=== PATIENT | female | born 1945 | race Caucasian/White ===

== ENCOUNTER 2021-10-14 09:13 | Inpatient (IN) | payer OTHER, SELFPAY ==
[2021-10-14] VITALS (23 sets, daily range): BP systolic 72–285; BP diastolic 32–121; PULSE 54–93; RESP 11–20; TEMP 33–36.6; O2SAT 10–100; BMI 30.2
--- NOTE | ~2021-10-14 | XR_ITS ---
EXAMINATION: XR CHEST CLINICAL INFORMATION: OGT placement. COMPARISON: Chest 10/14/2021 TECHNIQUE: Frontal view of the chest was obtained. FINDINGS: The lungs are well-expanded with increased fecal interstitial markings in both lungs suggestive of chronic Interstitial process. There is no consolidation or mass. There is no pleural effusion. There is a new enteric tube with distal tip in the fundus and the end hole above the GE junction. Tip of endotracheal tube is 2.9 cm above the akila. Heart size and pulmonary vascularity is normal. No gross bony or the body seen. XR/XR chest 1V IMPRESSION: New enteric tube needs to be advanced by at least 10 cm for the end hole to be within the stomach. No change in endotracheal tube and prominent bilateral interstitial reticular nodular changes in both lungs.
--- NOTE | ~2021-10-14 | CT_ITS ---
EXAMINATION: CT HEAD WITHOUT CONTRAST (STROKE PROTOCOL) CLINICAL INFORMATION: Stroke protocol. COMPARISON: CT brain 01/16/2019 TECHNIQUE: Contiguous axial imaging was performed from the skull base to vertex without intravenous administration of contrast. This CT examination was performed using dose optimization techniques as appropriate, variously including the following: *Automated exposure control *Adjustment of mA and/or kV according to patient size (this includes techniques or standardized protocols for targeted exams where dose is matched to indication/reason for exam; i.e. extremities or head) *Use of iterative reconstruction technique DLP: 766 mGy-cm FINDINGS: There is no intracranial hemorrhage, hematoma, or extra-axial fluid collection. The ventricles are normal in size. There is no hydrocephalus, edema, or mass effect. The there is diffuse periventricular hypodensity in both cerebral hemispheres without mass effect. There is no acute infarct or mass lesion. The calvarium appears intact. There is no pneumocephalus or orbital emphysema. The visualized sinuses and middle ears and mastoid air cells show no significant mucosal thickening. There are no air-fluid levels. CT/CT head for stroke IMPRESSION: No acute intracranial process seen. This critical result was discussed by phone with Dr Elodia Armando at 10 AM on 10/14/2021. It was ascertained that the content and urgency of the report was understood at the time of direct communication.
--- NOTE | ~2021-10-14 | XR_ITS ---
EXAMINATION: XR CHEST CLINICAL INFORMATION: Status post intubation. COMPARISON: Chest 03/12/2019. TECHNIQUE: Frontal view of the chest was obtained. FINDINGS: The lungs are well-expanded with increased bilateral parahilar markings. In addition there are reticular nodular changes in both lower lobes which were present as far as CT 03/31/2018. There are smaller in size compared to previous study. Patchy atelectasis or infiltrate seen in left lung base. There is an endotracheal tube 2.9 cm above the akila. Heart size and pulmonary vascularity is normal. No gross bony abnormality seen. The soft tissues are normal. XR/XR chest 1V IMPRESSION: Prominent bilateral reticular nodular changes and interstitial thickening likely chronic process. Patchy atelectasis, less likely infiltrate left lung base retrocardiac area. New endotracheal tube 2.9 cm above the akila.
--- NOTE | ~2021-10-14 | CT_ITS ---
EXAMINATION: CTA NECK WITH CONTRAST (STROKE) CTA BRAIN WITH CONTRAST (STROKE) CLINICAL INFORMATION: Suspect acute stroke. Assess for major vessel occlusion. Please call report. COMPARISON: CT scan of the head earlier 10/14/2021. TECHNIQUE: CTA of the head and neck was performed in the axial plane from the mediastinum to the skull vertex using 70 mL Omnipaque 350 intravenous contrast. A 7 minute delayed post contrast CT scan of the head was obtained. Additional reformatted multiplanar images including maximum intensity projection MIP images are generated on the CT workstation. The degree of stenosis is based off NASCET criteria.. This CT examination was performed using dose optimization techniques as appropriate, variously including the following: *Automated exposure control *Adjustment of mA and/or kV according to patient size (this includes techniques or standardized protocols for targeted exams where dose is matched to indication/reason for exam; i.e. extremities or head) *Use of iterative reconstruction technique DLP: 1636 mGy-cm FINDINGS: CT Head: There is no evidence of acute intracranial hemorrhage or territorial infarction. No abnormal mass-effect or midline shift is seen. Gonsalez to white matter differentiation is well preserved. No extra-axial fluid collections are identified. There is no abnormal enhancement. There is mild commensurate prominence of the ventricles and sulci consistent with diffuse volume loss. There are areas of low-attenuation in the periventricular and subcortical white matter, and in the thong consistent with chronic microvascular ischemic changes. The osseous structures and soft tissues are normal. There is moderate fluid within the nasal cavities bilaterally. There is mild mucoperiosteal thickening in the right maxillary sinus. CTA Neck: There is a classic configuration of the arch of the aorta. The great vessels of the neck are widely patent. There are atheromatous calcifications at the origins of the bilateral subclavian arteries. The common carotid arteries have normal caliber. There are mild atheromatous calcifications at the carotid bifurcations without significant stenosis. The internal carotid arteries in the neck bilaterally have uniform and normal caliber. The origins of both vertebral arteries are well seen and appear normal. Both vertebral arteries are widely patent and demonstrate good opacification throughout their cervical course. The vertebral arteries are codominant. Nonvascular: There are atelectatic changes in the lungs bilaterally. There is pleuroparenchymal scarring at the lung apices. The esophagus is distended with a moderate amount of fluid. There is an endotracheal tube in position with the tip approximately 2 cm above the level of the akila. There is a 0.9 cm low density nodule with peripheral hyperattenuation toward the upper pole of the left lobe of the thyroid gland, which is not clinically significant. There is no cervical lymphadenopathy. There are no acute osseous findings. CTA Head: There are atheromatous calcifications of the cavernous internal carotid arteries bilaterally, with approximately 50% stenosis. The middle and anterior cerebral arteries bilaterally demonstrate normal caliber with no evidence of focal stenosis, aneurysm or vascular malformation. There is normal arborization of the middle cerebral artery branches. The anterior communicating artery is normal. In the posterior circulation, the vertebral arteries are codominant and have uniform caliber. The basilar artery appears normal. The right posterior cerebral artery has a origin off the anterior circulation. The posterior cerebral arteries have normal caliber. The venous sinuses opacify normally. CT/CT angio head neck stroke IMPRESSION: 1. There are no acute bleeds or territorial infarcts. There are no masses or areas of abnormal enhancement. 2. There is diffuse volume loss and there are chronic microvascular ischemic changes. 3. There are calcifications at the carotid bifurcations and intracranially, but without significant focal stenoses, aneurysms or vascular malformations are demonstrated. 4. The esophagus is distended with fluid. 5. This critical result was telephoned to Dr Haley on 10/14/2021 at 10:45 AM and it was ascertained that the content and urgency of the report was understood at the time of direct communication.
[2021-10-14] MEDS: LORazepam 2 MG/ML VIAL 1 MG IVPUSH (09:18)
[2021-10-14] MEDS: Succinylcholine Chloride 200 MG/10 ML VIAL 100 MG IVPUSH (09:21)
[2021-10-14] MEDS: Etomidate 20 MG/10 ML VIAL IVPUSH (09:21)
--- NOTE | 2021-10-14 09:26 | ECG_ITS ---
Test Reason : UNRESPOSIVE Blood Pressure : / mmHG Vent. Rate : 074 BPM Atrial Rate : 074 BPM P-R Int : 164 ms QRS Dur : 096 ms QT Int : 470 ms P-R-T Axes : 070 079 091 degrees QTc Int : 521 ms Normal sinus rhythm Possible Left atrial enlargement Nonspecific ST abnormality Prolonged QT Abnormal ECG When compared with ECG of 12-MAR-2019 22:41, T wave inversion less evident in Anterolateral leads QT has lengthened Referred By: Tr Clifton Electronically Signed By:CHELLY VEGAS MD
[2021-10-14 09:35] LABS: Glucose, Whole Blood 194 mg/dL (60-115)
[2021-10-14] MEDS: propofoL 1,000 MG/100 ML VIAL 9 MG IVCONT (09:35)
--- NOTE | 2021-10-14 09:55 | ED_ITS ---
HPI - Altered Mental Status General Chief Complaint: General Medical Stated Complaint: unresponsive Time Seen by Provider: 10/14/21 09:26 Source: family and EMS Mode of arrival: EMS History of Present Illness HPI narrative: Altered mental status ,pt found by EMS face down in the floor MD complaint: altered mental status, confusion and decreased responsiveness Onset (ago): hour(s) (2) Timing confirmed by: spouse Severity: moderate Context: other (dementia) Related Data Allergies Allergy/AdvReac Type Severity Reaction Status Date / Time Sulfa Allergy Severe RASH/HIVES, Unverified 06/02/20 14:38 (Sulfonamide Antibiotics) hives [SULFA (SULFONAMIDE ANTIBIOTICS)] insulin aspart Allergy Unknown HIVES Unverified 06/02/20 14:38 [From NOVOLOG U-100 INSULIN ASPART] levofloxacin AdvReac Intermediate BLOOD Unverified 06/02/20 14:38 [From LEVAQUIN] SUGAR DROPS milk [MILK] AdvReac Mild NAUSEA Unverified 06/02/20 14:38 sulfa drugs Allergy Unknown Uncoded 03/23/19 00:00 Review of Systems Verdana 4l Review of Systems: Yes all other systems are reviewed and Verdana 4d are negative Verdana 4l Constitutional: Verdana 4d Constitutional: Verdana 4d Verdana 4d Denies chills and Denies headache(s) Verdana 4l Eyes: Verdana 4d Verdana 4d Eyes: Verdana 4d Denies blurry vision Verdana 4l ENT: Verdana 4d Denies headache(s) Verdana 4l Cardiovascular: Verdana 4d Cardiovascular: Verdana 4d Verdana 4d Reports no additional cardiovascular complaints Verdana 4l Neurologic: Verdana 4d Reports behavioral changes, Reports confusion and Denies headache(s) Verdana 4l Psychiatric: Verdana 4d Verdana 4d Psychiatric: Verdana 4d Reports behavioral changes and Reports confusion [facility] Past Medical History PMF Narrative: Diabetes,dementia,hyponatremia Social History Social History Advance Directives: Yes Advance Directives Information Provided: No Advance Directives on File: No Physical Exam Verdana 4l Vital Signs: Verdana 4d Verdana 4d Vital Signs: Verdana 4d Verdana 4Bd Last Vital Signs Verdana 4d Tests Superintendent New 4d Tests Superintendent New 4d Temp 95.5 F L 10/14/21 10:41 Tests Superintendent New 4d Pulse 66 10/14/21 10:41 Tests Superintendent New 4d Resp 18 10/14/21 10:41 BP 134/60 10/14/21 10:41 Pulse Ox 100 10/14/21 10:41 BMI result Body Mass Index 30.2 Const: Other: Patient is altered uncooperative, does not follow commands General: confusion, lethargic and patient obtunded Orientation/consciousness: confusion, patient obtunded and lethargic HENMT: Head: Yes normal to inspection Face and sinus: Yes normal facial exam Mouth: Normal oral and palatal mucosa present Eyes: General: appearance normal, both eyes and all related structures Conjunctivae: conjunctivae normal Sclerae: sclerae normal Neck: Neck: Yes normal visual inspection Chest: Chest palpation & inspection: normal inspection of the chest Resp: Effort & Inspection: normal respiratory effort Auscultation: clear to auscultation bilaterally Cardio: Jugular venous distension: no JVD Rate: regular rate Rhythm: regular rhythm GI: Inspection: Yes normal to inspection Palpation (GI): Soft to palpation, nontender and no guarding Auscultation: normal bowel sounds Skin: General skin exam: no rashes or lesions noted, elasticity normal and turgor no rmal Lesions: no lesions Rashes: no rashes Neuro: Other: Patient is lethargic with known did the does not follow command General: confusion and patient obtunded Course Reevaluation(s) Reevaluation #1: The patient was intubated on arrival with RSI , I spoke a letter with the he reports to me that the was shaking so I assume that maybe she had a possible seizure, she has no history of seizure prior to that, the tells me also that she had low sodium so is in the differential diagnosis disease there is hyponatremia as well Reevaluation #2: Na noted 113,discussed with ICU team they request Na 100 cc/h Also spoke with renal Dr Puckett MDM - Altered Mental Status Lab Data Result diagrams: 10/14/21 10:03 10/14/21 10:03 Labs: Lab Results 10/14/21 10/14/21 10/14/21 Range/Units 09:17 10:03 10:03 WBC 5.3 (4.8-10.8) X10*3/uL RBC 3.50 L (4.20-5.50) X10*6/uL Hgb 10.4 L (12.0-16.0) g/dl Hct 29.2 L (37.0-47.0) % MCV 83.4 (80.0-98.0) fL MCH 29.7 (27.0-33.0) pg MCHC 35.6 H (31.0-35.0) g/dl RDW 11.8 (11.0-16.0) % Plt Count 224 (160-400) X10*3/uL MPV 8.8 L (9.4-12.3) fL Immature Gran % (Auto) 0.6 H (0.0-0.4) % Neut % (Auto) 79.4 H (45-73) % Lymph % (Auto) 9.5 L (20-40) % [place] % (Auto) 9.9 (2-11) % Eos % (Auto) 0.4 (0-4) % Baso % (Auto) 0.2 (0-2) % Lymph # (Auto) 0.5 L (1.2-4.9) X10*3/uL [place] # (Auto) 0.5 (0.1-1.2) X10*3/uL Eos # (Auto) 0.0 (0.0-0.4) X10*3/uL Baso # (Auto) 0.0 (0.0-0.2) X10*3/uL Abs Immat Gran (auto) 0.03 (0.00-0.03) X10*3/uL Absolute Neuts (auto) 4.2 (2.0-8.3) x10*3/uL Absolute Nucleated RBC 0.000 (0.0-0.012) X10*3/uL Nucleated RBC % (auto) 0.0 (0.0-0.2) /100WBC PT 12.7 (9.9-13.0) SEC INR 1.1 (0.9-1.1) APTT 32.7 (24.1-38.0) SEC Sodium (135-145) mmol/L Potassium (3.3-5.1) mmol/L Chloride (96-108) mmol/L Carbon Dioxide (22-29) mmol/L Anion Gap (12-20) BUN (9-16) mg/dL Creatinine (0.5-1.4) mg/dL Estim Creat Clear Calc Estimated GFR POC Glucose 194 H (60-115) mg/dL Random Glucose (60-115) mg/dL Calcium (8.4-10.2) mg/dL Total Bilirubin (0.0-1.0) mg/dL AST (5-31) U/L ALT (0-31) U/L Alkaline Phosphatase (39-117) U/L Troponin I High Sens (<3.5-17.0) ng/L Total Protein (6.5-8.0) g/dL Albumin (3.5-5.0) g/dL Urine Color Urine Appearance Urine pH (5.0-8.0) Ur Specific [place] (1.005-1.025) Urine Protein (NEG-TRACE) MG/DL Urine Glucose (UA) (NEG) MG/DL Urine Ketones (NEG) MG/DL Urine Blood (NEG) Urine Nitrite (NEG) Ur Leukocyte Esterase (NEG) Urine RBC (0) /HPF Urine WBC (0-4) /HPF Ur Squamous Epith Cells /LPF Urine Bacteria /LPF 10/14/21 10/14/21 10/14/21 Range/Units 10:03 10:03 10:35 WBC (4.8-10.8) X10*3/uL RBC (4.20-5.50) X10*6/uL Hgb (12.0-16.0) g/dl Hct (37.0-47.0) % MCV (80.0-98.0) fL MCH (27.0-33.0) pg MCHC (31.0-35.0) g/dl RDW (11.0-16.0) % Plt Count (160-400) X10*3/uL MPV (9.4-12.3) fL Immature Gran % (Auto) (0.0-0.4) % Neut % (Auto) (45-73) % Lymph % (Auto) (20-40) % [place] % (Auto) (2-11) % Eos % (Auto) (0-4) % Baso % (Auto) (0-2) % Lymph # (Auto) (1.2-4.9) X10*3/uL [place] # (Auto) (0.1-1.2) X10*3/uL Eos # (Auto) (0.0-0.4) X10*3/uL Baso # (Auto) (0.0-0.2) X10*3/uL Abs Immat Gran (auto) (0.00-0.03) X10*3/uL Absolute Neuts (auto) (2.0-8.3) x10*3/uL Absolute Nucleated RBC (0.0-0.012) X10*3/uL Nucleated RBC % (auto) (0.0-0.2) /100WBC PT (9.9-13.0) SEC INR (0.9-1.1) APTT (24.1-38.0) SEC Sodium 113 L* (135-145) mmol/L Potassium 3.9 (3.3-5.1) mmol/L Chloride 83 L (96-108) mmol/L Carbon Dioxide 21 L (22-29) mmol/L Anion Gap 13 (12-20) BUN 11 (9-16) mg/dL Creatinine 0.64 (0.5-1.4) mg/dL Estim Creat Clear Calc 69.8 Estimated GFR > 60 POC Glucose (60-115) mg/dL Random Glucose 198 H (60-115) mg/dL Calcium 7.7 L (8.4-10.2) mg/dL Total Bilirubin 1.0 (0.0-1.0) mg/dL AST 28 (5-31) U/L ALT 15 (0-31) U/L Alkaline Phosphatase 89 (39-117) U/L Troponin I High Sens 9.7 (<3.5-17.0) ng/L Total Protein 5.2 L (6.5-8.0) g/dL Albumin 3.1 L (3.5-5.0) g/dL Urine Color YELLOW Urine Appearance CLEAR Urine pH 7.5 (5.0-8.0) Ur Specific [place] 1.020 (1.005-1.025) Urine Protein 2+ H (NEG-TRACE) MG/DL Urine Glucose (UA) >=1000 H (NEG) MG/DL Urine Ketones 5 (NEG) MG/DL Urine Blood 2+ H (NEG) Urine Nitrite NEG (NEG) Ur Leukocyte Esterase NEG (NEG) Urine RBC 1-4 (0) /HPF Urine WBC 0-2 (0-4) /HPF Ur Squamous Epith Cells TRACE /LPF Urine Bacteria NONE /LPF ECG Data ECG #1: ECG interpretation date: 10/14/21 ECG interpretation time: 10:22 Prior ECG tracings: available for review Pacemaker model: nsr [address] depression v4-6 Procedures Intubation Time out performed: Yes sedative: Etomidate paralytic: Succinylcholine Laryngoscope: fiber optic video scope ET Tube Size: 7.5 ET Tube Uncuffed: Yes Tube Secured Depth (cm): 23 Tube Placement Confirmation: visualized tube passing through cords and equal breath sounds bilaterally Patient Tolerated Procedure: well Intubation Complications: none Critical Care Time Critical Care Time Critical Care Time: Yes Total Critical Care Time: 45 Attestation: time spent talking to ENS/ staff,taking care of pt ,reviewing study Discharge Plan Discharge Clinical Impression: Altered mental status, unspecified, Acute hyponatremia Patient Disposition: Admitted As Inpatient
[2021-10-14 10:06] LABS: MANUAL DIFF FLAG NO
[2021-10-14 10:09] LABS: Basophils Percent Auto 0.2 % (0-2); Eosinophils Percent Auto 0.4 % (0-4); Hematocrit 29.2 % (37.0-47.0); Hemoglobin 10.4 g/dl (12.0-16.0); Imm Gran Abs Auto 0.03 X10*3/uL (0.00-0.03); Imm Gran Pct Auto 0.6 % (0.0-0.4); Lymphocytes Absolute Auto 0.5 X10*3/uL (1.2-4.9); Lymphocytes Percent Auto 9.5 % (20-40); Mean Corpuscular HGB Conc 35.6 g/dl (31.0-35.0); Mean Corpuscular Hemoglobin 29.7 pg (27.0-33.0); Mean Corpuscular Volume 83.4 fL (80.0-98.0); Mean Platelet Volume 8.8 fL (9.4-12.3); Monocytes Absolute Auto 0.5 X10*3/uL (0.1-1.2); Monocytes Percent Auto 9.9 % (2-11); Neutrophils Absolute Auto 4.2 x10*3/uL (2.0-8.3); Neutrophils Percent Auto 79.4 % (45-73); Platelet Count 224 X10*3/uL (160-400); Red Cell Distribution Width 11.8 % (11.0-16.0); White Blood Count 5.3 X10*3/uL (4.8-10.8)
[2021-10-14 10:15] LABS: INTERNATIONAL NORM RATIO 1.1 (0.9-1.1); Prothrombin Time 12.7 SEC (9.9-13.0)
[2021-10-14 10:18] LABS: Partial Thromboplastin Time 32.7 SEC (24.1-38.0)
[2021-10-14 10:30] LABS: Troponin-I High Sensitivity 9.7 ng/L (<3.5-17.0)
[2021-10-14 10:40] LABS: Appearance Urine CLEAR; Color Urine YELLOW; Glucose Urine UA >=1000 MG/DL (NEG); Leukocyte Esterase Urine NEG (NEG); Nitrite Urine NEG (NEG); PH 7.5 (5.0-8.0); UACC Culture Trigger NO; Urine Blood 2+ (NEG); Urine Ketones 5 MG/DL (NEG); Urine Protein 2+ MG/DL (NEG-TRACE)
[2021-10-14 10:58] LABS: Squamous Epithelial Cell Urine TRACE /LPF; WBC Urine 0-2 /HPF (0-4)
[2021-10-14 10:58] LABS: Alanine Aminotransferase 15 U/L (0-31); Albumin Level 3.1 g/dL (3.5-5.0); Alkaline Phosphatase 89 U/L (39-117); Anion Gap 13 (12-20); Aspartate Amino Transferase 28 U/L (5-31); Blood Urea Nitrogen 11 mg/dL (9-16); Calcium 7.7 mg/dL (8.4-10.2); Carbon Dioxide 21 mmol/L (22-29); Chloride 83 mmol/L (96-108); Creatinine Clr Calc Pharmacy 69.8; Estimated Glomerular Filt Rate > 60; Glucose Random 198 mg/dL (60-115); Potassium 3.9 mmol/L (3.3-5.1); Sodium 113 mmol/L (135-145); Total Protein 5.2 g/dL (6.5-8.0)
[2021-10-14] MEDS: 0.9 % Sodium Chloride 1,000 ML 100 ML IVCONT (11:23)
[2021-10-14 11:24] LABS: Osmolality, Serum 254 mosm/kg (281-305)
[2021-10-14 11:33] LABS: COVID-19 Test Negative (Negative)
[2021-10-14 11:45] LABS: Uric Acid 2.3 mg/dL (2.4-5.7)
[2021-10-14] MEDS: propofoL 1,000 MG/100 ML VIAL 15.75 MG IVCONT (12:52)
[2021-10-14 13:06] LABS: Glucose, Whole Blood 196 mg/dL (60-115)
--- NOTE | 2021-10-14 13:28 | P.CONNP_ITS ---
History of Present Illness Chief Complaint Chief complaint: HYPERNATREMIA SEIZURES Review of Systems Review of Systems Yes all other systems are reviewed and are negative Constitutional: Denies chills and Denies headache(s) Eyes: Denies blurry vision Denies headache(s) Cardiovascular: Reports no additional cardiovascular complaints Reports behavioral changes, Reports confusion and Denies headache(s) Psychiatric: Reports behavioral changes and Reports confusion PMFSH Social History Social History Advance Directives: Yes Advance Directives Information Provided: No Advance Directives on File: No Meds Allergies Allergy/AdvReac Type Severity Reaction Status Date / Time Sulfa Allergy Severe RASH/HIVES, Unverified 06/02/20 14:38 (Sulfonamide Antibiotics) hives [SULFA (SULFONAMIDE ANTIBIOTICS)] insulin aspart Allergy Unknown HIVES Unverified 06/02/20 14:38 [From NOVOLOG U-100 INSULIN ASPART] levofloxacin AdvReac Intermediate BLOOD Unverified 06/02/20 14:38 [From LEVAQUIN] SUGAR DROPS milk [MILK] AdvReac Mild NAUSEA Unverified 06/02/20 14:38 sulfa drugs Allergy Unknown Uncoded 03/23/19 00:00 Active Medications: Current Medications Propofol (Diprivan) 1,000 mg in 100 mls @ 0 mls/hr IVCONT .Q0M [facility]; Protocol Last Admin: 10/14/21 12:52 Dose: 35 mcg/kg/min, 15.75 mls/hr Documented by: Sodium Chloride (Ns) 1,000 mls @ 100 mls/hr IVCONT .Q10H [facility] Last Admin: 10/14/21 11:23 Dose: 100 mls/hr Documented by: Pharmacy Consult (Consult Rx Perform Med Rec) 1 each MISCELLANE ONCE PRN PRN Reason: Consult order Home Medications Medication Instructions Recorded Confirmed Last Taken Type aspirin 81 mg 81 mg PO DAILY 10/14/21 10/14/21 Unknown History chewable tablet donepezil 10 mg 10 mg PO DAILY 10/14/21 10/14/21 Unknown History tablet omeprazole 20 mg 20 mg PO 10/14/21 10/14/21 Unknown History capsule,delayed DAILY@0630 release simvastatin 20 mg 20 mg PO BEDTIME 10/14/21 10/14/21 Unknown History tablet Physical Exam Vital Signs: Last Vital Signs Temp 95.3 F L 10/14/21 11:24 Pulse 84 10/14/21 13:00 Resp 17 10/14/21 13:00 BP 160/82 H 10/14/21 13:00 Pulse Ox 100 10/14/21 13:00 BMI result Verdana 4 Body Mass Index Verdana 4 30.2 Verdana 4 Verdana 4 Const Other: Patient is altered uncooperative, does not follow commands General: confusion, lethargic and patient obtunded Orientation/consciousness: confusion, patient obtunded and lethargic HENCO Head: Yes normal to inspection Face and sinus: Yes normal facial exam Mouth: Normal oral and palatal mucosa present Eyes General: appearance normal, both eyes and all related structures Conjunctivae: conjunctivae normal Sclerae: sclerae normal Neck Neck: Yes normal visual inspection Chest Chest palpation & inspection: normal inspection of the chest Resp Effort & Inspection: normal respiratory effort Auscultation: clear to auscultation bilaterally Cardio Jugular venous distension: no JVD Rate: regular rate Rhythm: regular rhythm GI Inspection: Yes normal to inspection Palpation (GI): Soft to palpation, nontender and no guarding Auscultation: normal bowel sounds Skin General skin exam: no rashes or lesions noted, elasticity normal and turgor normal Lesions: no lesions Rashes: no rashes Neuro Other: Patient is lethargic with known did the does not follow command General: confusion and patient obtunded Results Lab Results Result Diagrams: 10/14/21 10:03 10/14/21 10:03 Lab results: Chemistry 10/14/21 10:03 Sodium 113 L* Potassium 3.9 Carbon Dioxide 21 L BUN 11 Creatinine 0.64 Calcium 7.7 L Hematology 10/14/21 10:03 WBC 5.3 Hgb 10.4 L Plt Count 224 Urinalysis 10/14/21 10:35 Urine Color YELLOW Urine Appearance CLEAR Urine pH 7.5 Ur Specific [place] 1.020 Urine Protein 2+ H Urine Glucose (UA) >=1000 H Urine Ketones 5 Urine Blood 2+ H Urine Nitrite NEG Ur Leukocyte Esterase NEG Urine RBC 1-4 Urine WBC 0-2 Ur Squamous Epith Cells TRACE Assessment and Plan (1) Acute hyponatremia: Status: Acute
--- NOTE | 2021-10-14 13:33 | PM.CNNEP ---
History of Present Illness Reason for Consult Consult date: 10/14/21 Chief Complaint Chief complaint: HYPERNATREMIA SEIZURES Review of Systems Review of Systems Yes all other systems are reviewed and are negative Constitutional: Denies chills and Denies headache(s) Eyes: Denies blurry vision Denies headache(s) Cardiovascular: Reports no additional cardiovascular complaints Reports behavioral changes, Reports confusion and Denies headache(s) Psychiatric: Reports behavioral changes and Reports confusion PMFSH Social History Social History Advance Directives: Yes Advance Directives Information Provided: No Advance Directives on File: No Meds Allergies Allergy/AdvReac Type Severity Reaction Status Date / Time Sulfa (Sulfonamide Allergy Severe RASH/HIVES, Unverified 06/02/20 14:38 Antibiotics) hives [SULFA (SULFONAMIDE ANTIBIOTICS)] insulin aspart Allergy Unknown HIVES Unverified 06/02/20 14:38 [From NOVOLOG U-100 INSULIN ASPART] levofloxacin [From LEVAQUIN] AdvReac Intermediate BLOOD Unverified 06/02/20 14:38 SUGAR DROPS milk [MILK] AdvReac Mild NAUSEA Unverified 06/02/20 14:38 sulfa drugs Allergy Unknown Uncoded 03/23/19 00:00 Active Medications: Current Medications Propofol (Diprivan) 1,000 mg in 100 mls @ 0 mls/hr IVCONT .Q0M [facility]; Protocol Last Admin: 10/14/21 12:52 Dose: 35 mcg/kg/min, 15.75 mls/hr Documented by: Sodium Chloride (Ns) 1,000 mls @ 100 mls/hr IVCONT .Q10H [facility] Last Admin: 10/14/21 11:23 Dose: 100 mls/hr Documented by: Pharmacy Consult (Consult Rx Perform Med Rec) 1 each MISCELLANE ONCE PRN PRN Reason: Consult order Home Medications Medication Instructions Recorded Confirmed Last Taken Type donepezil 10 mg tablet 10 mg PO DAILY 10/14/21 10/14/21 Unknown History omeprazole 20 mg capsule,delayed 20 mg PO DAILY@0630 10/14/21 10/14/21 Unknown History release Physical Exam Vital Signs: Last Vital Signs Temp 95.3 F L 10/14/21 11:24 Pulse 84 10/14/21 13:00 Resp 17 10/14/21 13:00 BP 160/82 H 10/14/21 13:00 Pulse Ox 100 10/14/21 13:00 BMI result Body Mass Index 30.2 Const Other: Patient is altered uncooperative, does not follow commands General: confusion, lethargic and patient obtunded Orientation/consciousness: confusion, patient obtunded and lethargic HENMT Head: Yes normal to inspection Face and sinus: Yes normal facial exam Mouth: Normal oral and palatal mucosa present Eyes General: appearance normal, both eyes and all related structures Conjunctivae: conjunctivae normal Sclerae: sclerae normal Neck Neck: Yes normal visual inspection Chest Chest palpation & inspection: normal inspection of the chest Resp Effort & Inspection: normal respiratory effort Auscultation: clear to auscultation bilaterally Cardio Jugular venous distension: no JVD Rate: regular rate Rhythm: regular rhythm GI Inspection: Yes normal to inspection Palpation (GI): Soft to palpation, nontender and no guarding Auscultation: normal bowel sounds Skin General skin exam: no rashes or lesions noted, elasticity normal and turgor normal Lesions: no lesions Rashes: no rashes Neuro Other: Patient is lethargic with known did the does not follow command General: confusion and patient obtunded Results Lab Results Result Diagrams: 10/14/21 10:03 10/14/21 10:03 Lab results: Chemistry 10/14/21 10:03 Sodium 113 L* Potassium 3.9 Carbon Dioxide 21 L BUN 11 Creatinine 0.64 Calcium 7.7 L Hematology 10/14/21 10:03 WBC 5.3 Hgb 10.4 L Plt Count 224 Urinalysis 10/14/21 10:35 Urine Color YELLOW Urine Appearance CLEAR Urine pH 7.5 Ur Specific [place] 1.020 Urine Protein 2+ H Urine Glucose (UA) >=1000 H Urine Ketones 5 Urine Blood 2+ H Urine Nitrite NEG Ur Leukocyte Esterase NEG Urine RBC 1-4 Urine WBC 0-2 Ur Squamous Epith Cells TRACE Assessment and Plan (1) Acute hyponatremia: Status: Acute Plan the low uric acid and concentrated 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
--- NOTE | 2021-10-14 13:41 | P.HPCC_ITS ---
History of Present Illness Date of Service: 10/14/21 Attending physician on admission: Paul Ashraf Chief Complaint: Hyponatremia Mrs. Chilel was admitted to the ICU this afternoon after being BIBA to the ED unresponsive and being intubated for airway protection. The patient is a 76 yo F with PMH of dementia x about 3 years, DM, orthostatic hypotension (thought due to autonomic dysfxn related to her DM; she used to take midodrine, doesn?t anymore), GERD.? She?s been admitted to [facility] multiple times over the last few years with syncopal episodes. She participates in [employer].? She lives w her at home.? She has a co mmode at the bedside at night.? Sounds like she needs significant help from her . Meds at home include: Vit B12 Donepezil 10mg Simvastatin 20 mg qhs Vit D ASA 81 daily probiotic omeprazole 20 mg Insulin Humalog w meals Lantus 13 u qhs at 9pm nightly.? (Her wants to make sure she gets it only at 9pm nightly.) According to lab data here at [facility] dating back to 1996, the patient has never previously had hyponatremia ECHO 01/2019 notable for low normal LV EF, normal right heart, severe mitral annular calcification with trace MR. HISTORY OF PRESENT ILLNESS:? Over the last week, he mental status has been a little more off than usual, and she?s lost control of her bladder/bowel twice.? The went to the doctor at [employer] yesterday and were told her sodium was low .? (Not sure what that means.)? The called EMS this morning because his was down on the floor and unresponsive.? EMS found her face down on the floor and unresponsive.? The reported that his was shaking.? The patient was BIBA to the ED after 9am this morning. In the ED, the patient was unresponsive and was intubated on arrival.? Because of the 's story, Dr. Clifton thought she might have had a sz at home.? Physical exam in the ED generally unremarkable.? Labs notable for sodium 113, BUN/creatinine 11/0.6, glucose 198, albumin 3.1.? The patient was started on normal saline at 100 cc/hour, and admitted to the ICU. On my exam, she?s pale, looks older than stated age.? Unresponsive on propofol drip 35ug.? HR 87, BP 160/82.? On AC 12/360cc/21%/+5, RR is 20, Ve 7L, PIP 15cm, ETCO2 38mm, Sat 97%.? Afebrile and normal thermic.? No jugular venous distention with the head of the bed at 20 degrees.? Chest clear to auscultation, with normal expiratory phase.? Heart rate and rhythm are regular, normal-sounding S1 and S2, with no murmur or gallops.? The abdomen is benign.? She has about <1+ peripheral in central edema. LABORATORY DATA:? Below.? Notably, the serum sodium as described above.? After 2 hours on the normal saline infusion, the serum sodium is up to 117. IMPRESSION: 1. Underlying history of dementia. 2. DM.? Start her on sliding scale. 3. History of orthostatic hypotension. 4. History of GERD.? We?ll make sure she gets her daily omeprazole. 5. Subacute hyponatremia.? Usual management.? Cut the NS down to 50cc/hr and follow closely. 6. Acute respiratory failure.? Required intubation and ventilation for airway control.? Hopefully she will be extubated bbl tomorrow. 7. Hypotensive later in the ICU, related to sedation (propofol and Precedex) and bradycardia (2? Precedex).? BP normalized when those were turned off.? No suspicion of sepsis. 8. Suspect she?s euvolemic, based on her renal indices. Spoke to the patient's at length about her past medical history, what happened yesterday and this morning, about her medications, her current condition, treatment, and prognosis. Critical care time (including extended review of past medical record):? 80+ min [facility] Social History Social History Household Members: Spouse Housing: House Do you presently have visiting nurse or other home services: No (unable to asess) Unable to assess alcohol history related to: Unable to respond Patient Tobacco Use Status: Tobacco use Unknown Use of substances other than those prescribed or required for medical reasons: Unable to respond Advance Directives: Yes Advance Directives Information Provided: No Advance Directives on File: No Advance Directives Date on File: 10/14/21 Recently lost weight without trying: Unsure Nutrition Risks: No Nutritional Risk Patient : No : No Poor oral hygiene: Yes Meds Allergies Allergy/AdvReac Type Severity Reaction Status Date / Time Sulfa (Sulfonamide Allergy Severe RASH/HIVES, Verified 10/14/21 16:39 Antibiotics) hives [SULFA (SULFONAMIDE ANTIBIOTICS)] insulin aspart Allergy Unknown HIVES Verified 10/14/21 16:39 [From NOVOLOG U-100 INSULIN ASPART] levofloxacin [From AdvReac Intermediate BLOOD Verified 10/14/21 16:39 LEVAQUIN] SUGAR DROPS milk [MILK] AdvReac Mild NAUSEA Verified 10/14/21 16:39 Active Medications: Current Medications Propofol (Diprivan) 1,000 mg in 100 mls @ 0 mls/hr IVCONT .Q0M CHRISTOPH; Protocol Last Admin: 10/14/21 12:52 Dose: 35 mcg/kg/min, 15.75 mls/hr Documented by: Sodium Chloride (Ns) 1,000 mls @ 100 mls/hr IVCONT .Q10H CHRISTOPH Last Admin: 10/14/21 11:23 Dose: 100 mls/hr Documented by: Pharmacy Consult (Consult Rx Perform Med Rec) 1 each MISCELLANE ONCE PRN PRN Reason: Consult order Home Medications Medication Instructions Recorded Confirmed Last Taken Type Lactobacillus 1 cap PO BID 10/14/21 10/14/21 Unknown History rhamnosus GG 10 billion cell capsule (Culturelle) aspirin 81 mg 81 mg PO DAILY 10/14/21 10/14/21 Unknown History chewable tablet cholecalciferol 125 mcg PO DAILY 10/14/21 10/14/21 Unknown History (vitamin D3) 125 mcg (5,000 unit) tablet (Vitamin D3) cyanocobalamin 500 mcg PO DAILY 10/14/21 10/14/21 Unknown History (vitamin B-12) 500 mcg tablet donepezil 10 mg 10 mg PO DAILY 10/14/21 10/14/21 Unknown History tablet insulin glargine 13 unit SUBCUT 10/14/21 10/14/21 Unknown History 100 unit/mL (3 BEDTIME mL) subcutaneous pen (Lantus Solostar U-100 Insulin) insulin lispro 3 unit SUBCUT 10/14/21 10/14/21 Unknown History 100 unit/mL QPM subcutaneous cartridge (Humalog U-100 Insulin) insulin lispro 4 unit SUBCUT 10/14/21 10/14/21 Unknown History 100 unit/mL DAILY subcutaneous cartridge (Humalog U-100 Insulin) insulin lispro 6 unit SUBCUT 10/14/21 10/14/21 Unknown History 100 unit/mL DAILY@1200 subcutaneous cartridge (Humalog U-100 Insulin) methenamine 1 g PO BID 10/14/21 10/14/21 Unknown History hippurate 1 gram tablet omeprazole 20 mg 20 mg PO 10/14/21 10/14/21 Unknown History capsule,delayed DAILY@0630 release simvastatin 20 mg 20 mg PO BEDTIME 10/14/21 10/14/21 Unknown History tablet Physical Exam Verdana 4l Vital Signs: Verdana 4d Verdana 4d Vital Signs: Verdana 4d Verdana 4Bd Last Vital Signs Verdana 4d Assurance Officer New 4d Assurance Officer New 4d Temp 95.3 F L 10/14/21 11:24 Assurance Officer New 4d Pulse 84 10/14/21 13:00 Assurance Officer New 4d Resp 17 10/14/21 13:00 BP 160/82 H 10/14/21 13:00 Pulse Ox 100 10/14/21 13:00 BMI result Body Mass Index 30.2 Results Labs CBC and Chem 7: 10/14/21 10:03 10/14/21 15:55 Labs: Laboratory Results - last 24 hr 10/14/21 10/14/21 10/14/21 09:17 10:03 10:03 MCV 83.4 MCH 29.7 MCHC 35.6 H RDW 11.8 Plt Count 224 MPV 8.8 L Immature Gran % (Auto) 0.6 H Neut % (Auto) 79.4 H Lymph % (Auto) 9.5 L Yates % (Auto) 9.9 Eos % (Auto) 0.4 Baso % (Auto) 0.2 Lymph # (Auto) 0.5 L Yates # (Auto) 0.5 Eos # (Auto) 0.0 Baso # (Auto) 0.0 Abs Immat Gran (auto) 0.03 Absolute Neuts (auto) 4.2 Absolute Nucleated RBC 0.000 Nucleated RBC % (auto) 0.0 PT 12.7 INR 1.1 APTT 32.7 Anion Gap Estim Creat Clear Calc Estimated GFR POC Glucose 194 H Random Glucose Osmolality Uric Acid Calcium Total Bilirubin AST ALT Alkaline Phosphatase Troponin I High Sens Total Protein Albumin Urine Color Urine Appearance Urine pH Ur Specific [place] Urine Protein Urine Glucose (UA) Urine Ketones Urine Blood Urine Nitrite Ur Leukocyte Esterase Urine RBC Urine WBC Ur Squamous Epith Cells Urine Bacteria COVID-19 ([facility]) COVID-19 Clin Com 10/14/21 10/14/21 10/14/21 10:03 10:03 10:03 MCV MCH MCHC RDW Plt Count MPV Immature Gran % (Auto) Neut % (Auto) Lymph % (Auto) Yates % (Auto) Eos % (Auto) Baso % (Auto) Lymph # (Auto) Yates # (Auto) Eos # (Auto) Baso # (Auto) Abs Immat Gran (auto) Absolute Neuts (auto) Absolute Nucleated RBC Nucleated RBC % (auto) PT INR APTT Anion Gap 13 Estim Creat Clear Calc 69.8 Estimated GFR > 60 POC Glucose Random Glucose 198 H Osmolality 254 L Uric Acid 2.3 L Calcium 7.7 L Total Bilirubin 1.0 AST 28 ALT 15 Alkaline Phosphatase 89 Troponin I High Sens 9.7 Total Protein 5.2 L Albumin 3.1 L Urine Color Urine Appearance Urine pH Ur Specific [place] Urine Protein Urine Glucose (UA) Urine Ketones Urine Blood Urine Nitrite Ur Leukocyte Esterase Urine RBC Urine WBC Ur Squamous Epith Cells Urine Bacteria COVID-19 ([facility]) COVID-19 Clin Com 10/14/21 10/14/21 10/14/21 10:35 11:12 13:03 MCV MCH MCHC RDW Plt Count MPV Immature Gran % (Auto) Neut % (Auto) Lymph % (Auto) Yates % (Auto) Eos % (Auto) Baso % (Auto) Lymph # (Auto) Yates # (Auto) Eos # (Auto) Baso # (Auto) Abs Immat Gran (auto) Absolute Neuts (auto) Absolute Nucleated RBC Nucleated RBC % (auto) PT INR APTT Anion Gap Estim Creat Clear Calc Estimated GFR POC Glucose 196 H Random Glucose Osmolality Uric Acid Calcium Total Bilirubin AST ALT Alkaline Phosphatase Troponin I High Sens Total Protein Albumin Urine Color YELLOW Urine Appearance CLEAR Urine pH 7.5 Ur Specific [place] 1.020 Urine Protein 2+ H Urine Glucose (UA) >=1000 H Urine Ketones 5 Urine Blood 2+ H Urine Nitrite NEG Ur Leukocyte Esterase NEG Urine RBC 1-4 Urine WBC 0-2 Ur Squamous Epith Cells TRACE Urine Bacteria NONE COVID-19 ([facility]) Negative COVID-19 Clin Com See Note Imaging Radiologist's Impressions: Impressions Chest X-Ray 10/14/21 09:30 IMPRESSION: Prominent bilateral reticular nodular changes and interstitial thickening likely chronic process. Patchy atelectasis, less likely infiltrate left lung base retrocardiac area. New endotracheal tube 2.9 cm above the akila. Head CT 10/14/21 09:51 IMPRESSION: No acute intracranial process seen. This critical result was discussed by phone with Dr Elodia Armando at 10 AM on 10/14/2021. It was ascertained that the content and urgency of the report was understood at the time of direct communication. Head/Neck CTA 10/14/21 10:02 IMPRESSION: 1. There are no acute bleeds or territorial infarcts. There are no masses or areas of abnormal enhancement. 2. There is diffuse volume loss and there are chronic microvascular ischemic changes. 3. There are calcifications at the carotid bifurcations and intracranially, but without significant focal stenoses, aneurysms or vascular malformations are demonstrated. 4. The esophagus is distended with fluid. 5. This critical result was telephoned to Dr Haley on 10/14/2021 at 10:45 AM and it was ascertained that the content and urgency of the report was understood at the time of direct communication. Critical Care Time Critical Care Time (minutes): 90
[2021-10-14 13:43] LABS: Anion Gap 13 (12-20); Blood Urea Nitrogen 12 mg/dL (9-16); Calcium 8.9 mg/dL (8.4-10.2); Carbon Dioxide 23 mmol/L (22-29); Chloride 85 mmol/L (96-108); Estimated Glomerular Filt Rate > 60; Glucose Random 191 mg/dL (60-115); Magnesium 1.8 mg/dL (1.6-2.6); Potassium 3.8 mmol/L (3.3-5.1); Sodium 117 mmol/L (135-145)
[2021-10-14] MEDS: dexmedeTOMIDidine HCL/NS 400 MCG/100 ML INFUS..BTL 9.38 MCG IVCONT (14:21)
[2021-10-14] MEDS: Donepezil HCl 10 MG TABLET PO (14:24)
[2021-10-14] MEDS: Potassium Chloride Packet 20 MEQ PACKET 40 MEQ PO (14:24)
[2021-10-14] MEDS: lisinopriL 5 MG TABLET G-TUBE (14:24)
[2021-10-14] MEDS: Enoxaparin Sodium 40 MG/0.4 ML SYRINGE SUBCUT (14:25)
[2021-10-14] MEDS: Magnesium Sulfate/H2O 2 GM/50 ML PIGGYBACK IV (14:35)
--- NOTE | 2021-10-14 14:58 | PHA.MEDREC ---
med rec complete, no issues Pharmacy Consult ? Medication Reconciliation Pharmacy has completed the medication reconciliation.
[2021-10-14 16:24] LABS: Sodium 118 mmol/L (135-145)
[2021-10-14] MEDS: Atropine Sulfate 1 MG/ML VIAL 0.5 MG IVPUSH (16:24)
[2021-10-14] MEDS: Potassium Chloride Packet 20 MEQ PACKET PO (16:27)
[2021-10-14 16:32] LABS: Potassium Urine Random 13.4 mmol/L
[2021-10-14] MEDS: Insulin Lispro 100 UNIT/ML 3 ML VIAL SUBCUT (18:00)
--- NOTE | 2021-10-14 18:29 | PC.NURSE ---
pt transfered to icu from at 1240, pt intubated, sedated on propofol. Per MD switch to precedex. Pt became hypotensive, and bradicardic, sedation turned off and atroprine ivp- with good effect. Put pt on Pressure support 5/5- 21% pt tolerating. awaiting MD orders. updated by RN and
[2021-10-14 19:28] LABS: Sodium 119 mmol/L (135-145)
[2021-10-14] MEDS: Atropine Sulfate 1 MG/10 ML SYRINGE IVPUSH (21:15)
[2021-10-14] MEDS: Phenylephrine HCL 20 MG in 0.9 % Sodium Chloride 250 ML 28.35 MG IVCONT (21:15)
[2021-10-14] MEDS: 0.9 % Sodium Chloride 1,000 ML 50 ML IVCONT (22:32)
[2021-10-14] MEDS: Chlorhexidine Gluc Oral Rinse 15 ML MOUTHWASH BUCCAL (22:33)
[2021-10-14] MEDS: Dextrose 50 % 25 GM/50 ML SYRINGE IVPUSH (22:45)
[2021-10-14 23:00] LABS: Glucose, Whole Blood 29 mg/dL (60-115)
[2021-10-14 23:00] LABS: Glucose, Whole Blood 206 mg/dL (60-115)
[2021-10-14 23:55] LABS: ABG Base Excess -1.1 mmol/L; ABG HCO3 22 mmol/L (22-26); ABG pCO2 35 mmHg (32-45); ABG pCO2 TC 34 mmHg (32-45); ABG pH 7.41 (7.35-7.45); ABG pH TC 7.42 (7.35-7.45); ABG pO2 84 mmHg (83-108); ABG pO2 TC 81 (83-108)
[2021-10-15] VITALS (12 sets, daily range): BP systolic 114–180; BP diastolic 39–75; PULSE 88–100; RESP 11–23; TEMP 36.1–37.5; O2SAT 92–99; BMI 27.2
[2021-10-15 00:53] LABS: Glucose, Whole Blood 140 mg/dL (60-115)
[2021-10-15 01:35] LABS: ABG Refer to POC result
[2021-10-15 01:50] LABS: Anion Gap 13 (12-20); Blood Urea Nitrogen 14 mg/dL (9-16); Calcium 8.8 mg/dL (8.4-10.2); Carbon Dioxide 22 mmol/L (22-29); Chloride 89 mmol/L (96-108); Creatinine Clr Calc Pharmacy 54.4; Estimated Glomerular Filt Rate > 60; Glucose Fasting 148 mg/dL (60-99); Potassium 4.2 mmol/L (3.3-5.1); Sodium 120 mmol/L (135-145)
[2021-10-15 02:34] LABS: Glucose, Whole Blood 131 mg/dL (60-115)
[2021-10-15] MEDS: 0.9 % Sodium Chloride 1,000 ML 40 ML IVCONT (02:44)
--- NOTE | 2021-10-15 03:05 | PC.NURSE ---
initial contact, pt intubated on no sedation tolerating well. Pt follows commands pupils perrl. LS clear,. Pt abd soft, non-tender. Pt has mesa with output of 20-40. No Bm, no pressure injury, dry skin. Pt extubated at 1914. After that patient is a&ox2 to person and situation. Pt does interact appropriately. Pt follows commands well and answers most questions appropriately. at approximately 2114 pt was noted to be very lethargic and difficult to arrouse. Dr. Ashraf was notified and requested an ABG and atropine and enmanuel. Pt was did not have a mental status change. at approximately 2219 Pt was noted to be diaphoretic on her posterior and a POC glucose was done and the sugar was 29. Pt was given one amp of D50. Pt became increasingly alert and easily arousable. Pt still confused but is awake and able to follow commands.
[2021-10-15 05:35] LABS: MANUAL DIFF FLAG NO
[2021-10-15 05:41] LABS: Basophils Percent Auto 0.2 % (0-2); Eosinophils Percent Auto 0.1 % (0-4); Hematocrit 32.7 % (37.0-47.0); Hemoglobin 11.6 g/dl (12.0-16.0); Imm Gran Abs Auto 0.05 X10*3/uL (0.00-0.03); Imm Gran Pct Auto 0.4 % (0.0-0.4); Lymphocytes Absolute Auto 0.4 X10*3/uL (1.2-4.9); Lymphocytes Percent Auto 3.1 % (20-40); Mean Corpuscular HGB Conc 35.5 g/dl (31.0-35.0); Mean Corpuscular Hemoglobin 29.9 pg (27.0-33.0); Mean Corpuscular Volume 84.3 fL (80.0-98.0); Mean Platelet Volume 8.9 fL (9.4-12.3); Monocytes Absolute Auto 1.1 X10*3/uL (0.1-1.2); Monocytes Percent Auto 8.5 % (2-11); Neutrophils Absolute Auto 11.7 x10*3/uL (2.0-8.3); Neutrophils Percent Auto 87.7 % (45-73); Platelet Count 269 X10*3/uL (160-400); Red Blood Count 3.88 X10*6/uL (4.20-5.50); Red Cell Distribution Width 12.2 % (11.0-16.0); White Blood Count 13.4 X10*3/uL (4.8-10.8)
[2021-10-15 06:23] LABS: Alanine Aminotransferase 23 U/L (0-31); Albumin Level 3.4 g/dL (3.5-5.0); Alkaline Phosphatase 92 U/L (39-117); Anion Gap 13 (12-20); Aspartate Amino Transferase 41 U/L (5-31); Bilirubin Total 1.1 mg/dL (0.0-1.0); Blood Urea Nitrogen 15 mg/dL (9-16); Calcium 8.7 mg/dL (8.4-10.2); Carbon Dioxide 23 mmol/L (22-29); Chloride 90 mmol/L (96-108); Creatinine Clr Calc Pharmacy 56.5; Estimated Glomerular Filt Rate > 60; Glucose Random 104 mg/dL (60-115); Potassium 4.4 mmol/L (3.3-5.1); Sodium 122 mmol/L (135-145); Total Protein 5.5 g/dL (6.5-8.0)
--- NOTE | 2021-10-15 06:29 | P.PNCC_ITS ---
Subjective Subjective Date of Service: 10/15/21 Interval History: Today the patient appears well, is hemodynamically stable, there has not been any issues overnight, she follows commands, denies pain.? Baseline mental status and and appears pleasantly confused at times. Hospital course:? 76-year-old female with underlying dementia for about 3 years, diabetes, GERD, recurrent syncopal episodes, hyperlipidemia presented to the emergency room 24 hours ago after being found unresponsive versus known floor by her .? Reportedly she has had a couple in usual episodes of bladder and bowel incontinence this week and she is so a [facility] Dr. told her the her sodium was low but they did not know how to interpret this.? In the ER the patient was noted to be unresponsive and was intubated for airway protection.? Workup was significant for sodium 113 with an intact renal function.? Patient was started on normal saline and transferred to the ICU were over the last 24 hours her sodium levels have been monitor closely and have significantly improved. 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 Given that the patient did not appear to have any respiratory issues and she was satting on room air and on pressure support while on the vent I extubated her last night around 6:00 p.m. ever since that has not been any issues with her. Vital signs blood pressure 135/450, heart rate 93, respirations 16, O2 sat 96% on room air. Alert place and person but not to time.? Follows commands. Skin is intact the lesions Heart regular in rate and rhythm no murmurs rubs gallops Lungs clear to auscultation bilaterally without wheezes rales or rhonchi Abdomen is protuberant, positive bowel sounds, soft, nontender. Musculoskeletal:? Moving all 4 extremities upon request of the major joints bi laterally, no edema, no leg asymmetry. Neuro:? As above, no focal deficits noted. Vascular:? 2+ pulses bilaterally upper and lower extremities Laboratory data:? White blood cells 13.4, hemoglobin 11.6, hematocrit 32.7, platelet 269;? sodium 122.? Potassium 4.4, chloride 90, carbon dioxide 23, anion gap 13, BUN 15, creatinine 0.79.? Osmolality 254, uric acid 2.3. Assessment/plan 1. Acute hyponatremia likely due to SIADH? however underlying origin of it is unknown at this point 2. Unresponsive episode, likely syncopal episode of unknown etiology (cardiac causes r/o), perhaps orthostatic hypotension as she does have a history of it.? 3. History of diabetes 4. History of dementia 5. history of diabetes At this point the patient has improved significantly, as mentioned above the patient was extubated successfully without any issues overnight, her sodium is improving and currently on slow IV fluids, as recommended by Nephrology the patient will have water restriction and will start her on urea 30 mg daily, however I do believe the patient needs a formal swallow evaluation. Patient is stable enough to be transferred to a regular room and this information has been conveyed to the hospitalist Dr. Hewitt Case was discussed in detail with Dr. Ashraf.? He is aware of all the above as well as the plan of care for this patient. ? Critical Care Time (minutes): 60 Physical Exam Verdana 4l Vital Signs: Verdana 4d Verdana 4d Vital Signs: Verdana 4d Verdana 4Bd Last Vital Signs Verdana 4d Telephone Order Clerk Room Service New 4d Telephone Order Clerk Room Service New 4d Temp 99.3 F 10/15/21 06:00 Telephone Order Clerk Room Service New 4d Pulse 96 10/15/21 06:00 Telephone Order Clerk Room Service New 4d Resp 11 L 10/15/21 06:00 BP 135/50 L 10/15/21 06:00 Pulse Ox 98 10/15/21 06:00 BMI result Body Mass Index 30.2 Objective Data Labs CBC & Chem 7: 10/15/21 05:09 10/15/21 05:09 Labs: Laboratory Results - last 24 hr 10/14/21 10/14/21 10/14/21 09:17 10:03 10:03 WBC 5.3 RBC 3.50 L Hgb 10.4 L Hct 29.2 L MCV 83.4 MCH 29.7 MCHC 35.6 H RDW 11.8 Plt Count 224 MPV 8.8 L Immature Gran % (Auto) 0.6 H Neut % (Auto) 79.4 H Lymph % (Auto) 9.5 L [place] % (Auto) 9.9 Eos % (Auto) 0.4 Baso % (Auto) 0.2 Lymph # (Auto) 0.5 L [place] # (Auto) 0.5 Eos # (Auto) 0.0 Baso # (Auto) 0.0 Abs Immat Gran (auto) 0.03 Absolute Neuts (auto) 4.2 Absolute Nucleated RBC 0.000 Nucleated RBC % (auto) 0.0 PT 12.7 INR 1.1 APTT 32.7 O2 Saturation ABG pH at Pt Temp ABG pH (Temp Correct) ABG pCO2 at Pt Temp ABG pCO2 (Temp Corrct ABG pO2 at Pt Temp ABG pO2 (Temp Correct ABG HCO3 ABG Base Excess (Actual) Sodium Potassium Chloride Carbon Dioxide Anion Gap BUN Creatinine Estim Creat Clear Calc Estimated GFR POC Glucose 194 H Random Glucose Fasting Glucose Osmolality Uric Acid Calcium Phosphorus Magnesium Total Bilirubin AST ALT Alkaline Phosphatase Troponin I High Sens Total Protein Albumin Urine Color Urine Appearance Urine pH Ur Specific [place] Urine Protein Urine Glucose (UA) Urine Ketones Urine Blood Urine Nitrite Ur Leukocyte Esterase Urine RBC Urine WBC Ur Squamous Epith Cells Urine Bacteria Ur Random Sodium Ur Random Potassium Ur Random Chloride COVID-19 ([facility]) COVID-19 Clin Com 10/14/21 10/14/21 10/14/21 10:03 10:03 10:03 WBC RBC Hgb Hct MCV MCH MCHC RDW Plt Count MPV Immature Gran % (Auto) Neut % (Auto) Lymph % (Auto) [place] % (Auto) Eos % (Auto) Baso % (Auto) Lymph # (Auto) [place] # (Auto) Eos # (Auto) Baso # (Auto) Abs Immat Gran (auto) Absolute Neuts (auto) Absolute Nucleated RBC Nucleated RBC % (auto) PT INR APTT O2 Saturation ABG pH at Pt Temp ABG pH (Temp Correct) ABG pCO2 at Pt Temp ABG pCO2 (Temp Corrct ABG pO2 at Pt Temp ABG pO2 (Temp Correct ABG HCO3 ABG Base Excess (Actual) Sodium 113 L* Potassium 3.9 Chloride 83 L Carbon Dioxide 21 L Anion Gap 13 BUN 11 Creatinine 0.64 Estim Creat Clear Calc 69.8 Estimated GFR > 60 POC Glucose Random Glucose 198 H Fasting Glucose Osmolality 254 L Uric Acid 2.3 L Calcium 7.7 L Phosphorus Magnesium Total Bilirubin 1.0 AST 28 ALT 15 Alkaline Phosphatase 89 Troponin I High Sens 9.7 Total Protein 5.2 L Albumin 3.1 L Urine Color Urine Appearance Urine pH Ur Specific [place] Urine Protein Urine Glucose (UA) Urine Ketones Urine Blood Urine Nitrite Ur Leukocyte Esterase Urine RBC Urine WBC Ur Squamous Epith Cells Urine Bacteria Ur Random Sodium Ur Random Potassium Ur Random Chloride COVID-19 ([facility]) COVID-19 Clin Com 10/14/21 10/14/21 10/14/21 10:35 11:12 13:03 WBC RBC Hgb Hct MCV MCH MCHC RDW Plt Count MPV Immature Gran % (Auto) Neut % (Auto) Lymph % (Auto) [place] % (Auto) Eos % (Auto) Baso % (Auto) Lymph # (Auto) [place] # (Auto) Eos # (Auto) Baso # (Auto) Abs Immat Gran (auto) Absolute Neuts (auto) Absolute Nucleated RBC Nucleated RBC % (auto) PT INR APTT O2 Saturation ABG pH at Pt Temp ABG pH (Temp Correct) ABG pCO2 at Pt Temp ABG pCO2 (Temp Corrct ABG pO2 at Pt Temp ABG pO2 (Temp Correct ABG HCO3 ABG Base Excess (Actual) Sodium Potassium Chloride Carbon Dioxide Anion Gap BUN Creatinine Estim Creat Clear Calc Estimated GFR POC Glucose 196 H Random Glucose Fasting Glucose Osmolality Uric Acid Calcium Phosphorus Magnesium Total Bilirubin AST ALT Alkaline Phosphatase Troponin I High Sens Total Protein Albumin Urine Color YELLOW Urine Appearance CLEAR Urine pH 7.5 Ur Specific [place] 1.020 Urine Protein 2+ H Urine Glucose (UA) >=1000 H Urine Ketones 5 Urine Blood 2+ H Urine Nitrite NEG Ur Leukocyte Esterase NEG Urine RBC 1-4 Urine WBC 0-2 Ur Squamous Epith Cells TRACE Urine Bacteria NONE Ur Random Sodium Ur Random Potassium Ur Random Chloride COVID-19 ([facility]) Negative COVID-19 Clin Com See Note 10/14/21 10/14/21 10/14/21 13:17 15:42 15:55 WBC RBC Hgb Hct MCV MCH MCHC RDW Plt Count MPV Immature Gran % (Auto) Neut % (Auto) Lymph % (Auto) [place] % (Auto) Eos % (Auto) Baso % (Auto) Lymph # (Auto) [place] # (Auto) Eos # (Auto) Baso # (Auto) Abs Immat Gran (auto) Absolute Neuts (auto) Absolute Nucleated RBC Nucleated RBC % (auto) PT INR APTT O2 Saturation ABG pH at Pt Temp ABG pH (Temp Correct) ABG pCO2 at Pt Temp ABG pCO2 (Temp Corrct ABG pO2 at Pt Temp ABG pO2 (Temp Correct ABG HCO3 ABG Base Excess (Actual) Sodium 117 L* 118 L* Potassium 3.8 Chloride 85 L Carbon Dioxide 23 Anion Gap 13 BUN 12 Creatinine 0.72 Estim Creat Clear Calc 62.0 Estimated GFR > 60 POC Glucose Random Glucose 191 H Fasting Glucose Osmolality Uric Acid Calcium 8.9 D Phosphorus 3.0 Magnesium 1.8 Total Bilirubin AST ALT Alkaline Phosphatase Troponin I High Sens Total Protein Albumin Urine Color Urine Appearance Urine pH Ur Specific [place] Urine Protein Urine Glucose (UA) Urine Ketones Urine Blood Urine Nitrite Ur Leukocyte Esterase Urine RBC Urine WBC Ur Squamous Epith Cells Urine Bacteria Ur Random Sodium 30.0 Ur Random Potassium 13.4 Ur Random Chloride 29.0 COVID-19 ([facility]) COVID-19 [facility] 10/14/21 10/14/21 10/14/21 19:06 22:43 22:56 WBC RBC Hgb Hct MCV MCH MCHC RDW Plt Count MPV Immature Gran % (Auto) Neut % (Auto) Lymph % (Auto) [place] % (Auto) Eos % (Auto) Baso % (Auto) Lymph # (Auto) [place] # (Auto) Eos # (Auto) Baso # (Auto) Abs Immat Gran (auto) Absolute Neuts (auto) Absolute Nucleated RBC Nucleated RBC % (auto) PT INR APTT O2 Saturation ABG pH at Pt Temp ABG pH (Temp Correct) ABG pCO2 at Pt Temp ABG pCO2 (Temp Corrct ABG pO2 at Pt Temp ABG pO2 (Temp Correct ABG HCO3 ABG Base Excess (Actual) Sodium 119 L* Potassium Chloride Carbon Dioxide Anion Gap BUN Creatinine Estim Creat Clear Calc Estimated GFR POC Glucose 29 L* 206 H Random Glucose Fasting Glucose Osmolality Uric Acid Calcium Phosphorus Magnesium Total Bilirubin AST ALT Alkaline Phosphatase Troponin I High Sens Total Protein Albumin Urine Color Urine Appearance Urine pH Ur Specific [place] Urine Protein Urine Glucose (UA) Urine Ketones Urine Blood Urine Nitrite Ur Leukocyte Esterase Urine RBC Urine WBC Ur Squamous Epith Cells Urine Bacteria Ur Random Sodium Ur Random Potassium Ur Random Chloride COVID-19 ([facility]) COVID-19 [facility] 10/14/21 10/14/21 10/15/21 23:46 23:47 00:49 WBC RBC Hgb Hct MCV MCH MCHC RDW Plt Count MPV Immature Gran % (Auto) Neut % (Auto) Lymph % (Auto) [place] % (Auto) Eos % (Auto) Baso % (Auto) Lymph # (Auto) [place] # (Auto) Eos # (Auto) Baso # (Auto) Abs Immat Gran (auto) Absolute Neuts (auto) Absolute Nucleated RBC Nucleated RBC % (auto) PT INR APTT O2 Saturation 96.0 ABG pH at Pt Temp 7.41 ABG pH (Temp Correct) 7.42 ABG pCO2 at Pt Temp 35 ABG pCO2 (Temp Corrct 34 ABG pO2 at Pt Temp 84 ABG pO2 (Temp Correct 81 L ABG HCO3 22 ABG Base Excess (Actual) -1.1 Sodium 120 L* Potassium 4.2 Chloride 89 L Carbon Dioxide 22 Anion Gap 13 BUN 14 Creatinine 0.82 Estim Creat Clear Calc 54.4 Estimated GFR > 60 POC Glucose 140 H Random Glucose Fasting Glucose 148 H Osmolality Uric Acid Calcium 8.8 Phosphorus Magnesium Total Bilirubin AST ALT Alkaline Phosphatase Troponin I High Sens Total Protein Albumin Urine Color Urine Appearance Urine pH Ur Specific [place] Urine Protein Urine Glucose (UA) Urine Ketones Urine Blood Urine Nitrite Ur Leukocyte Esterase Urine RBC Urine WBC Ur Squamous Epith Cells Urine Bacteria Ur Random Sodium Ur Random Potassium Ur Random Chloride COVID-19 ([facility]) COVID-19 Clin Com 10/15/21 10/15/21 10/15/21 02:29 05:09 05:09 WBC 13.4 H RBC 3.88 L Hgb 11.6 L Hct 32.7 L MCV 84.3 MCH 29.9 MCHC 35.5 H RDW 12.2 Plt Count 269 MPV 8.9 L Immature Gran % (Auto) 0.4 Neut % (Auto) 87.7 H Lymph % (Auto) 3.1 L [place] % (Auto) 8.5 Eos % (Auto) 0.1 Baso % (Auto) 0.2 Lymph # (Auto) 0.4 L [place] # (Auto) 1.1 Eos # (Auto) 0.0 Baso # (Auto) 0.0 Abs Immat Gran (auto) 0.05 H Absolute Neuts (auto) 11.7 H Absolute Nucleated RBC 0.000 Nucleated RBC % (auto) 0.0 PT INR APTT O2 Saturation ABG pH at Pt Temp ABG pH (Temp Correct) ABG pCO2 at Pt Temp ABG pCO2 (Temp Corrct ABG pO2 at Pt Temp ABG pO2 (Temp Correct ABG HCO3 ABG Base Excess (Actual) Sodium 122 L Potassium 4.4 Chloride 90 L Carbon Dioxide 23 Anion Gap 13 BUN 15 Creatinine 0.79 Estim Creat Clear Calc 56.5 Estimated GFR > 60 POC Glucose 131 H Random Glucose 104 Fasting Glucose Osmolality Uric Acid Calcium 8.7 Phosphorus Magnesium Total Bilirubin 1.1 H AST 41 H D ALT 23 Alkaline Phosphatase 92 Troponin I High Sens Total Protein 5.5 L Albumin 3.4 L Urine Color Urine Appearance Urine pH Ur Specific [place] Urine Protein Urine Glucose (UA) Urine Ketones Urine Blood Urine Nitrite Ur Leukocyte Esterase Urine RBC Urine WBC Ur Squamous Epith Cells Urine Bacteria Ur Random Sodium Ur Random Potassium Ur Random Chloride COVID-19 ([facility]) COVID-19 Clin Com Quality Stroke Does the patient have a stroke diagnosis?: No VTE Prior VTE?: No VTE Risk Level:: Medical - moderate - high VTE Device Contraindication: N/A - Device Ordered VTE Drug Contraindication: N/A - Med Ordered
[2021-10-15 06:54] LABS: Glucose, Whole Blood 91 mg/dL (60-115)
[2021-10-15 06:58] LABS: Thyroid Stimulating Hormone 2.09 uIU/mL (0.32-4.0)
[2021-10-15 07:29] LABS: Glucose, Whole Blood 93 mg/dL (60-115)
[2021-10-15 07:43] LABS: Cortisol Random 23.7 ug/dL
--- NOTE | 2021-10-15 08:52 | MHC.CM.PN ---
Patient has Dementia; CM spoke with /HCP/Angel @ [phone].Patient lives with her in a completely renovated/handicap accessible home including a ramp and stair lift and the dc plan is for Patient to return home (will not even consider SNF). CM has initiated and will follow for dc planning. Patient is part of [employer] but was not accessing any home services through them, [employer]. PCP is Dr. Stephenson, through [facility] and Patient has received [employer] X3 vax.
--- NOTE | 2021-10-15 09:35 | P.PNNP_ITS ---
Subjective Subjective Date of Service: 10/15/21 Interval history: Today the patient appears well, is hemodynamically stable, there has not been any issues overnight, she follows commands, denies pain.? Baseline mental status and and appears pleasantly confused at times. Hospital course:? 76-year-old female with underlying dementia for about 3 years, diabetes, GERD, recurrent syncopal episodes, hyperlipidemia presented to the emergency room 24 hours ago after being found unresponsive versus known floor by her .? Reportedly she has had a couple in usual episodes of bladder and bowel incontinence this week and she is so a [employer] Dr. told her the her sodium was low but they did not know how to interpret this.? In the ER the patient was noted to be unresponsive and was intubated for airway protection.? Workup was significant for sodium 113 with an intact renal function.? Patient was started on normal saline and transferred to the ICU were over the last 24 hours her sodium levels have been monitor closely and have significantly improved. 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 Given that the patient did not appear to have any respiratory issues and she was satting on room air and on pressure support while on the vent I extubated her last night around 6:00 p.m. ever since that has not been any issues with her. Vital signs blood pressure 135/450, heart rate 93, respirations 16, O2 sat 96% on room air. Alert place and person but not to time.? Follows commands. Skin is intact the lesions Heart regular in rate and rhythm no murmurs rubs gallops Lungs clear to auscultation bilaterally without wheezes rales or rhonchi Abdomen is protuberant, positive bowel sounds, soft, nontender. Musculoskeletal:? Moving all 4 extremities upon request of the major joints bi laterally, no edema, no leg asymmetry. Neuro:? As above, no focal deficits noted. Vascular:? 2+ pulses bilaterally upper and lower extremities Laboratory data:? White blood cells 13.4, hemoglobin 11.6, hematocrit 32.7, platelet 269;? sodium 122.? Potassium 4.4, chloride 90, carbon dioxide 23, anion gap 13, BUN 15, creatinine 0.79.? Osmolality 254, uric acid 2.3. Assessment/plan 1. Acute hyponatremia likely due to SIADH? however underlying origin of it is unknown at this point 2. Unresponsive episode, likely syncopal episode of unknown etiology (cardiac causes r/o), perhaps orthostatic hypotension as she does have a history of it.? 3. History of diabetes 4. History of dementia 5. history of diabetes At this point the patient has improved significantly, as mentioned above the patient was extubated successfully without any issues overnight, her sodium is improving and currently on slow IV fluids, as recommended by Nephrology the patient will have water restriction and will start her on urea 30 mg daily, however I do believe the patient needs a formal swallow evaluation. Patient is stable enough to be transferred to a regular room and this information has been conveyed to the hospitalist Dr. Hewitt Case was discussed in detail with Dr. Ashraf.? He is aware of all the above as well as the plan of care for this patient. ? Physical Exam Verdana 4l Vital Signs: Verdana 4d Verdana 4d Vital Signs: Verdana 4d Verdana 4Bd Last Vital Signs Verdana 4d Ground [employer] Instructor New 4d Ground School Instructor New 4d Temp 98.4 F 10/15/21 07:22 Ground School Instructor New 4d Pulse 95 10/15/21 07:22 Ground School Instructor New 4d Resp 18 10/15/21 07:22 BP 167/74 H 10/15/21 07:22 Pulse Ox 98 10/15/21 07:22 BMI result Body Mass Index 27.2 Objective Data Labs CBC & Chem 7: 10/15/21 05:09 10/15/21 05:09 Labs: Laboratory Results - last 24 hr 10/14/21 10/14/21 10/14/21 09:17 10:03 10:03 WBC 5.3 RBC 3.50 L Hgb 10.4 L Hct 29.2 L MCV 83.4 MCH 29.7 MCHC 35.6 H RDW 11.8 Plt Count 224 MPV 8.8 L Immature Gran % (Auto) 0.6 H Neut % (Auto) 79.4 H Lymph % (Auto) 9.5 L [place] % (Auto) 9.9 Eos % (Auto) 0.4 Baso % (Auto) 0.2 Lymph # (Auto) 0.5 L [place] # (Auto) 0.5 Eos # (Auto) 0.0 Baso # (Auto) 0.0 Abs Immat Gran (auto) 0.03 Absolute Neuts (auto) 4.2 Absolute Nucleated RBC 0.000 Nucleated RBC % (auto) 0.0 PT 12.7 INR 1.1 APTT 32.7 O2 Saturation ABG pH at Pt Temp ABG pH (Temp Correct) ABG pCO2 at Pt Temp ABG pCO2 (Temp Corrct ABG pO2 at Pt Temp ABG pO2 (Temp Correct ABG HCO3 ABG Base Excess (Actual) Sodium Potassium Chloride Carbon Dioxide Anion Gap BUN Creatinine Estim Creat Clear Calc Estimated GFR POC Glucose 194 H Random Glucose Fasting Glucose Osmolality Uric Acid Calcium Phosphorus Magnesium Total Bilirubin AST ALT Alkaline Phosphatase Troponin I High Sens Total Protein Albumin TSH Random Cortisol Urine Color Urine Appearance Urine pH Ur Specific Donovan Urine Protein Urine Glucose (UA) Urine Ketones Urine Blood Urine Nitrite Ur Leukocyte Esterase Urine RBC Urine WBC Ur Squamous Epith Cells Urine Bacteria Ur Random Sodium Ur Random Potassium Ur Random Chloride COVID-19 ([facility]) COVID-19 Clin Com 10/14/21 10/14/21 10/14/21 10:03 10:03 10:03 WBC RBC Hgb Hct MCV MCH MCHC RDW Plt Count MPV Immature Gran % (Auto) Neut % (Auto) Lymph % (Auto) [place] % (Auto) Eos % (Auto) Baso % (Auto) Lymph # (Auto) [place] # (Auto) Eos # (Auto) Baso # (Auto) Abs Immat Gran (auto) Absolute Neuts (auto) Absolute Nucleated RBC Nucleated RBC % (auto) PT INR APTT O2 Saturation ABG pH at Pt Temp ABG pH (Temp Correct) ABG pCO2 at Pt Temp ABG pCO2 (Temp Corrct ABG pO2 at Pt Temp ABG pO2 (Temp Correct ABG HCO3 ABG Base Excess (Actual) Sodium 113 L* Potassium 3.9 Chloride 83 L Carbon Dioxide 21 L Anion Gap 13 BUN 11 Creatinine 0.64 Estim Creat Clear Calc 69.8 Estimated GFR > 60 POC Glucose Random Glucose 198 H Fasting Glucose Osmolality 254 L Uric Acid 2.3 L Calcium 7.7 L Phosphorus Magnesium Total Bilirubin 1.0 AST 28 ALT 15 Alkaline Phosphatase 89 Troponin I High Sens 9.7 Total Protein 5.2 L Albumin 3.1 L TSH Random Cortisol Urine Color Urine Appearance Urine pH Ur Specific Donovan Urine Protein Urine Glucose (UA) Urine Ketones Urine Blood Urine Nitrite Ur Leukocyte Esterase Urine RBC Urine WBC Ur Squamous Epith Cells Urine Bacteria Ur Random Sodium Ur Random Potassium Ur Random Chloride COVID-19 ([facility]) COVID-19 Clin Com 10/14/21 10/14/21 10/14/21 10:35 11:12 13:03 WBC RBC Hgb Hct MCV MCH MCHC RDW Plt Count MPV Immature Gran % (Auto) Neut % (Auto) Lymph % (Auto) [place] % (Auto) Eos % (Auto) Baso % (Auto) Lymph # (Auto) [place] # (Auto) Eos # (Auto) Baso # (Auto) Abs Immat Gran (auto) Absolute Neuts (auto) Absolute Nucleated RBC Nucleated RBC % (auto) PT INR APTT O2 Saturation ABG pH at Pt Temp ABG pH (Temp Correct) ABG pCO2 at Pt Temp ABG pCO2 (Temp Corrct ABG pO2 at Pt Temp ABG pO2 (Temp Correct ABG HCO3 ABG Base Excess (Actual) Sodium Potassium Chloride Carbon Dioxide Anion Gap BUN Creatinine Estim Creat Clear Calc Estimated GFR POC Glucose 196 H Random Glucose Fasting Glucose Osmolality Uric Acid Calcium Phosphorus Magnesium Total Bilirubin AST ALT Alkaline Phosphatase Troponin I High Sens Total Protein Albumin TSH Random Cortisol Urine Color YELLOW Urine Appearance CLEAR Urine pH 7.5 Ur Specific [place] 1.020 Urine Protein 2+ H Urine Glucose (UA) >=1000 H Urine Ketones 5 Urine Blood 2+ H Urine Nitrite NEG Ur Leukocyte Esterase NEG Urine RBC 1-4 Urine WBC 0-2 Ur Squamous Epith Cells TRACE Urine Bacteria NONE Ur Random Sodium Ur Random Potassium Ur Random Chloride COVID-19 ([facility]) Negative COVID-19 Clin Com See Note 10/14/21 10/14/21 10/14/21 13:17 15:42 15:55 WBC RBC Hgb Hct MCV MCH MCHC RDW Plt Count MPV Immature Gran % (Auto) Neut % (Auto) Lymph % (Auto) [place] % (Auto) Eos % (Auto) Baso % (Auto) Lymph # (Auto) [place] # (Auto) Eos # (Auto) Baso # (Auto) Abs Immat Gran (auto) Absolute Neuts (auto) Absolute Nucleated RBC Nucleated RBC % (auto) PT INR APTT O2 Saturation ABG pH at Pt Temp ABG pH (Temp Correct) ABG pCO2 at Pt Temp ABG pCO2 (Temp Corrct ABG pO2 at Pt Temp ABG pO2 (Temp Correct ABG HCO3 ABG Base Excess (Actual) Sodium 117 L* 118 L* Potassium 3.8 Chloride 85 L Carbon Dioxide 23 Anion Gap 13 BUN 12 Creatinine 0.72 Estim Creat Clear Calc 62.0 Estimated GFR > 60 POC Glucose Random Glucose 191 H Fasting Glucose Osmolality Uric Acid Calcium 8.9 D Phosphorus 3.0 Magnesium 1.8 Total Bilirubin AST ALT Alkaline Phosphatase Troponin I High Sens Total Protein Albumin TSH Random Cortisol Urine Color Urine Appearance Urine pH Ur Specific [place] Urine Protein Urine Glucose (UA) Urine Ketones Urine Blood Urine Nitrite Ur Leukocyte Esterase Urine RBC Urine WBC Ur Squamous Epith Cells Urine Bacteria Ur Random Sodium 30.0 Ur Random Potassium 13.4 Ur Random Chloride 29.0 COVID-19 ([facility]) COVID-19 [facility]U 10/14/21 10/14/21 10/14/21 19:06 22:43 22:56 WBC RBC Hgb Hct MCV MCH MCHC RDW Plt Count MPV Immature Gran % (Auto) Neut % (Auto) Lymph % (Auto) [place] % (Auto) Eos % (Auto) Baso % (Auto) Lymph # (Auto) [place] # (Auto) Eos # (Auto) Baso # (Auto) Abs Immat Gran (auto) Absolute Neuts (auto) Absolute Nucleated RBC Nucleated RBC % (auto) PT INR APTT O2 Saturation ABG pH at Pt Temp ABG pH (Temp Correct) ABG pCO2 at Pt Temp ABG pCO2 (Temp Corrct ABG pO2 at Pt Temp ABG pO2 (Temp Correct ABG HCO3 ABG Base Excess (Actual) Sodium 119 L* Potassium Chloride Carbon Dioxide Anion Gap BUN Creatinine Estim Creat Clear Calc Estimated GFR POC Glucose 29 L* 206 H Random Glucose Fasting Glucose Osmolality Uric Acid Calcium Phosphorus Magnesium Total Bilirubin AST ALT Alkaline Phosphatase Troponin I High Sens Total Protein Albumin TSH Random Cortisol Urine Color Urine Appearance Urine pH Ur Specific [place] Urine Protein Urine Glucose (UA) Urine Ketones Urine Blood Urine Nitrite Ur Leukocyte Esterase Urine RBC Urine WBC Ur Squamous Epith Cells Urine Bacteria Ur Random Sodium Ur Random Potassium Ur Random Chloride COVID-19 ([facility]) COVID-19 ULURU 10/14/21 10/14/21 10/15/21 23:46 23:47 00:49 WBC RBC Hgb Hct MCV MCH MCHC RDW Plt Count MPV Immature Gran % (Auto) Neut % (Auto) Lymph % (Auto) [place] % (Auto) Eos % (Auto) Baso % (Auto) Lymph # (Auto) [place] # (Auto) Eos # (Auto) Baso # (Auto) Abs Immat Gran (auto) Absolute Neuts (auto) Absolute Nucleated RBC Nucleated RBC % (auto) PT INR APTT O2 Saturation 96.0 ABG pH at Pt Temp 7.41 ABG pH (Temp Correct) 7.42 ABG pCO2 at Pt Temp 35 ABG pCO2 (Temp Corrct 34 ABG pO2 at Pt Temp 84 ABG pO2 (Temp Correct 81 L ABG HCO3 22 ABG Base Excess (Actual) -1.1 Sodium 120 L* Potassium 4.2 Chloride 89 L Carbon Dioxide 22 Anion Gap 13 BUN 14 Creatinine 0.82 Estim Creat Clear Calc 54.4 Estimated GFR > 60 POC Glucose 140 H Random Glucose Fasting Glucose 148 H Osmolality Uric Acid Calcium 8.8 Phosphorus Magnesium Total Bilirubin AST ALT Alkaline Phosphatase Troponin I High Sens Total Protein Albumin TSH Random Cortisol Urine Color Urine Appearance Urine pH Ur Specific [place] Urine Protein Urine Glucose (UA) Urine Ketones Urine Blood Urine Nitrite Ur Leukocyte Esterase Urine RBC Urine WBC Ur Squamous Epith Cells Urine Bacteria Ur Random Sodium Ur Random Potassium Ur Random Chloride COVID-19 ([facility]) COVID-19 Clin Com 10/15/21 10/15/21 10/15/21 02:29 05:09 05:09 WBC 13.4 H RBC 3.88 L Hgb 11.6 L Hct 32.7 L MCV 84.3 MCH 29.9 MCHC 35.5 H RDW 12.2 Plt Count 269 MPV 8.9 L Immature Gran % (Auto) 0.4 Neut % (Auto) 87.7 H Lymph % (Auto) 3.1 L [place] % (Auto) 8.5 Eos % (Auto) 0.1 Baso % (Auto) 0.2 Lymph # (Auto) 0.4 L [place] # (Auto) 1.1 Eos # (Auto) 0.0 Baso # (Auto) 0.0 Abs Immat Gran (auto) 0.05 H Absolute Neuts (auto) 11.7 H Absolute Nucleated RBC 0.000 Nucleated RBC % (auto) 0.0 PT INR APTT O2 Saturation ABG pH at Pt Temp ABG pH (Temp Correct) ABG pCO2 at Pt Temp ABG pCO2 (Temp Corrct ABG pO2 at Pt Temp ABG pO2 (Temp Correct ABG HCO3 ABG Base Excess (Actual) Sodium 122 L Potassium 4.4 Chloride 90 L Carbon Dioxide 23 Anion Gap 13 BUN 15 Creatinine 0.79 Estim Creat Clear Calc 56.5 Estimated GFR > 60 POC Glucose 131 H Random Glucose 104 Fasting Glucose Osmolality Uric Acid Calcium 8.7 Phosphorus Magnesium Total Bilirubin 1.1 H AST 41 H D ALT 23 Alkaline Phosphatase 92 Troponin I High Sens Total Protein 5.5 L Albumin 3.4 L TSH 2.09 Random Cortisol Urine Color Urine Appearance Urine pH Ur Specific [place] Urine Protein Urine Glucose (UA) Urine Ketones Urine Blood Urine Nitrite Ur Leukocyte Esterase Urine RBC Urine WBC Ur Squamous Epith Cells Urine Bacteria Ur Random Sodium Ur Random Potassium Ur Random Chloride COVID-19 ([facility]) COVID-19 ULURU 10/15/21 10/15/21 10/15/21 05:09 06:27 07:25 WBC RBC Hgb Hct MCV MCH MCHC RDW Plt Count MPV Immature Gran % (Auto) Neut % (Auto) Lymph % (Auto) [place] % (Auto) Eos % (Auto) Baso % (Auto) Lymph # (Auto) [place] # (Auto) Eos # (Auto) Baso # (Auto) Abs Immat Gran (auto) Absolute Neuts (auto) Absolute Nucleated RBC Nucleated RBC % (auto) PT INR APTT O2 Saturation ABG pH at Pt Temp ABG pH (Temp Correct) ABG pCO2 at Pt Temp ABG pCO2 (Temp Corrct ABG pO2 at Pt Temp ABG pO2 (Temp Correct ABG HCO3 ABG Base Excess (Actual) Sodium Potassium Chloride Carbon Dioxide Anion Gap BUN Creatinine Estim Creat Clear Calc Estimated GFR POC Glucose 91 93 Random Glucose Fasting Glucose Osmolality Uric Acid Calcium Phosphorus Magnesium Total Bilirubin AST ALT Alkaline Phosphatase Troponin I High Sens Total Protein Albumin TSH Random Cortisol 23.7 Urine Color Urine Appearance Urine pH Ur Specific [place] Urine Protein Urine Glucose (UA) Urine Ketones Urine Blood Urine Nitrite Ur Leukocyte Esterase Urine RBC Urine WBC Ur Squamous Epith Cells Urine Bacteria Ur Random Sodium Ur Random Potassium Ur Random Chloride COVID-19 ([facility]) COVID-19 [facility] Procedures Date of Service Date of Service: 10/15/21 Assessment & Plan Assessment and plan (1) Acute hyponatremia: Status: Acute Assessment and Plan: most of the lab data including low serum uric acid is consistent with SIADH however the urine sodium is not as high as I would expect order urea powder and get thyroid function and a.m. cortisol Time Spent With Patient Time: Total time spent is greater than 50% in coordination of care (as documented) at patient's floor/unit and/or counseling patient:
[2021-10-15] MEDS: Aspirin 81 MG TAB.CHEW PO (09:55)
[2021-10-15] MEDS: Donepezil HCl 10 MG TABLET PO (09:55)
[2021-10-15] MEDS: Urea 15 GM POWDER 30 GM PO (10:03)
[2021-10-15 10:58] LABS: Cortisol Random 20.4 ug/dL; TSH reflex Free T4 (Prenatal) 1.75 uIU/mL (0.32-4.0)
[2021-10-15 11:27] LABS: Glucose, Whole Blood 216 mg/dL (60-115)
[2021-10-15] MEDS: Insulin Lispro 100 UNIT/ML 3 ML VIAL SUBCUT (12:01)
--- NOTE | 2021-10-15 13:59 | PM.EVENT ---
Event Note Date of Service: 10/15/21 Event Note: No acute issues...confused. Exam unchanges
[2021-10-15] MEDS: Enoxaparin Sodium 40 MG/0.4 ML SYRINGE SUBCUT (15:01)
[2021-10-15 16:24] LABS: Glucose, Whole Blood 116 mg/dL (60-115)
[2021-10-15 20:44] LABS: Glucose, Whole Blood 174 mg/dL (60-115)
[2021-10-16 00:10] LABS: Glucose, Whole Blood 203 mg/dL (60-115)
[2021-10-16] MEDS: Insulin Lispro 100 UNIT/ML 3 ML VIAL SUBCUT ×3 (00:44→20:29)
[2021-10-16 03:32] VITALS: BP 129/60; PULSE 91; RESP 18; TEMP 36.9; O2SAT 97
[2021-10-16] MEDS: 0.9 % Sodium Chloride 1,000 ML 100 ML IVCONT ×2 (04:43→12:09)
[2021-10-16 05:46] LABS: Glucose, Whole Blood 143 mg/dL (60-115)
[2021-10-16 08:00] VITALS: BP 104/72; PULSE 89; RESP 20; TEMP 36.5; O2SAT 96
[2021-10-16 08:01] LABS: Glucose, Whole Blood 191 mg/dL (60-115)
[2021-10-16 09:13] LABS: MANUAL DIFF FLAG NO
[2021-10-16 09:20] LABS: Basophils Percent Auto 0.2 % (0-2); Eosinophils Percent Auto 0.3 % (0-4); Hematocrit 31.7 % (37.0-47.0); Hemoglobin 10.8 g/dl (12.0-16.0); Imm Gran Abs Auto 0.06 X10*3/uL (0.00-0.03); Imm Gran Pct Auto 0.5 % (0.0-0.4); Lymphocytes Absolute Auto 0.6 X10*3/uL (1.2-4.9); Mean Corpuscular HGB Conc 34.1 g/dl (31.0-35.0); Mean Corpuscular Hemoglobin 29.9 pg (27.0-33.0); Mean Corpuscular Volume 87.8 fL (80.0-98.0); Mean Platelet Volume 9.3 fL (9.4-12.3); Monocytes Percent Auto 9.1 % (2-11); Neutrophils Absolute Auto 9.4 x10*3/uL (2.0-8.3); Neutrophils Percent Auto 84.9 % (45-73); Platelet Count 302 X10*3/uL (160-400); Red Blood Count 3.61 X10*6/uL (4.20-5.50); Red Cell Distribution Width 12.9 % (11.0-16.0); White Blood Count 11.1 X10*3/uL (4.8-10.8)
[2021-10-16 09:38] LABS: Alanine Aminotransferase 33 U/L (0-31); Albumin Level 3.5 g/dL (3.5-5.0); Alkaline Phosphatase 96 U/L (39-117); Anion Gap 23 (12-20); Aspartate Amino Transferase 79 U/L (5-31); Blood Urea Nitrogen 43 mg/dL (9-16); Calcium 9.3 mg/dL (8.4-10.2); Carbon Dioxide 16 mmol/L (22-29); Chloride 97 mmol/L (96-108); Creatinine Clr Calc Pharmacy 38.5; Estimated Glomerular Filt Rate 48; Glucose Random 199 mg/dL (60-115); Potassium 4.9 mmol/L (3.3-5.1); Sodium 131 mmol/L (135-145); Total Protein 5.7 g/dL (6.5-8.0)
[2021-10-16] MEDS: Donepezil HCl 10 MG TABLET PO (09:55)
[2021-10-16] MEDS: Aspirin 81 MG TAB.CHEW PO (09:56)
[2021-10-16 11:23] LABS: Glucose, Whole Blood 223 mg/dL (60-115)
[2021-10-16 12:00] VITALS: BP 119/54; PULSE 98; RESP 20; TEMP 36.7; O2SAT 95
[2021-10-16] MEDS: Enoxaparin Sodium 40 MG/0.4 ML SYRINGE SUBCUT (12:05)
--- NOTE | 2021-10-16 14:50 | P.PNIM_ITS ---
Subjective Subjective Date of Service: 10/16/21 Interval History: Confused but more alert today. No acute issues overnight Physical Exam Verdana 4l Vital Signs: Verdana 4d Verdana 4d Vital Signs: Verdana 4d Verdana 4Bd Last Vital Signs Verdana 4d Routeman New 4d Routeman New 4d Temp 98.0 F 10/16/21 12:00 Routeman New 4d Pulse 98 10/16/21 12:00 Routeman New 4d Resp 20 10/16/21 12:00 BP 119/54 L 10/16/21 12:00 Pulse Ox 95 10/16/21 12:00 BMI result Body Mass Index 27.2 Const: Other: No acute ditress Resp: Other: Cleat A/P. no R/R/W Cardio: Other: -S4 +S1/S2 -S3 m/r/g GI: Other: soft nt/nd +nabs Extrem: Other: no edema bilat Objective Data Active Medications Aspirin (Aspirin 81 Mg Tab.Chew) 81 mg PO DAILY [facility] Last Admin: 10/16/21 09:56 Dose: 81 mg Documented by: WALTER Atorvastatin Calcium (Atorvastatin Calcium 10 Mg Tablet) 10 mg PO BEDTIME [facility] Last Admin: 10/15/21 21:00 Dose: Not Given Documented by: LOLI Non-Admin Reason: NPO Chlorhexidine Gluconate (Chlorhexidine Gluc Oral Rinse 15 Ml Mouthwash) 15 ml BUCCAL TID [facility] Last Admin: 10/14/21 22:33 Dose: 15 ml Documented by: CYRZ Donepezil HCl (Donepezil Hcl 10 Mg Tablet) 10 mg PO DAILY [facility] Last Admin: 10/16/21 09:55 Dose: 10 mg Documented by: WALTER Enoxaparin Sodium (Enoxaparin Sodium 40 Mg/0.4 Ml Syringe) 40 mg SUBCUT Q24H [facility] Last Admin: 10/16/21 12:05 Dose: 40 mg Documented by: WALTER Sodium Chloride (Ns) 1,000 mls @ 100 mls/hr IVCONT .Q10H [facility] Last Admin: 10/16/21 12:09 Dose: 100 mls/hr Documented by: WALTER Insulin Human Lispro (Insulin Lispro 100 Unit/Ml 3 Ml Vial) 0 unit SUBCUT Q6H [facility]; Protocol Last Admin: 10/16/21 12:06 Dose: 4 unit Documented by: WALTER Omeprazole (Omeprazole 20 Mg/10 Ml Susp.Recon) 40 mg G-TUBE DAILY@629 [facility] Last Admin: 10/16/21 05:47 Dose: Not Given Documented by: LOLI Non-Admin Reason: NPO Pharmacy Consult (Consult Rx Perform Med Rec) 1 each MISCELLANE ONCE PRN PRN Reason: Consult order Labs CBC & Chem 7: 10/16/21 08:50 10/16/21 08:50 Labs: Laboratory Results - last 24 hr 10/15/21 10/15/21 10/16/21 16:20 20:40 00:08 MCV MCH MCHC RDW Plt Count MPV Immature Gran % (Auto) Neut % (Auto) Lymph % (Auto) [place] % (Auto) Eos % (Auto) Baso % (Auto) Lymph # (Auto) [place] # (Auto) Eos # (Auto) Baso # (Auto) Abs Immat Gran (auto) Absolute Neuts (auto) Absolute Nucleated RBC Nucleated RBC % (auto) Anion Gap Estim Creat Clear Calc Estimated GFR POC Glucose 116 H 174 H 203 H Random Glucose Calcium Total Bilirubin AST ALT Alkaline Phosphatase Total Protein Albumin 10/16/21 10/16/21 10/16/21 05:42 07:57 08:50 MCV 87.8 MCH 29.9 MCHC 34.1 RDW 12.9 Plt Count 302 MPV 9.3 L Immature Gran % (Auto) 0.5 H Neut % (Auto) 84.9 H Lymph % (Auto) 5.0 L [place] % (Auto) 9.1 Eos % (Auto) 0.3 Baso % (Auto) 0.2 Lymph # (Auto) 0.6 L [place] # (Auto) 1.0 Eos # (Auto) 0.0 Baso # (Auto) 0.0 Abs Immat Gran (auto) 0.06 H Absolute Neuts (auto) 9.4 H Absolute Nucleated RBC 0.000 Nucleated RBC % (auto) 0.0 Anion Gap Estim Creat Clear Calc Estimated GFR POC Glucose 143 H 191 H Random Glucose Calcium Total Bilirubin AST ALT Alkaline Phosphatase Total Protein Albumin 10/16/21 10/16/21 08:50 11:18 MCV MCH MCHC RDW Plt Count MPV Immature Gran % (Auto) Neut % (Auto) Lymph % (Auto) [place] % (Auto) Eos % (Auto) Baso % (Auto) Lymph # (Auto) [place] # (Auto) Eos # (Auto) Baso # (Auto) Abs Immat Gran (auto) Absolute Neuts (auto) Absolute Nucleated RBC Nucleated RBC % (auto) Anion Gap 23 H Estim Creat Clear Calc 38.5 Estimated GFR 48 POC Glucose 223 H Random Glucose 199 H Calcium 9.3 D Total Bilirubin 1.0 AST 79 H ALT 33 H Alkaline Phosphatase 96 Total Protein 5.7 L Albumin 3.5 Assessment and Plan (1) Acute hyponatremia: Status: Acute (2) Altered mental status, unspecified: Status: Acute Plan 76yoF admitted with hyponatremia(113) and altered mental status requiring intub ation. Sodium corrected and pt successfully extubated. Transferred to floor...HD stable but extremely confuse. This am...more easily reoriented.Sppech eval done...diet in 1. Hyponatremia -sodium normalized with fluid restriction/ures - follow renals/divalents 2. DMII - acceptable control on Q6 Lispro...will switch to standard sliding scale -restart home dosing once diet stabilized 3. Dementia - exacerbated by recent events - continue Aricept/methenamine Full Code Lovenox Discussed with Amador. Adamant about pt returning home with services Quality Stroke Does the patient have a stroke diagnosis?: No VTE Prior VTE?: No VTE Risk Level:: Medical - moderate - high VTE Device Contraindication: N/A - Device Ordered VTE Drug Contraindication: N/A - Med Ordered
[2021-10-16 15:03] VITALS: BP 156/51; PULSE 96; RESP 18; TEMP 36.7; O2SAT 99
--- NOTE | 2021-10-16 15:46 | MHC.SL.SWA ---
Speech Pathologist Impression: Oral Phase Dysphagia Risk of Aspiration Due to: Hx of Recent Extubation Reduced Cognition Dysphasia Diet Status: Upgrade Liquid Consistency and Strategies for Safe Swallow: Liquid Intake Recommendation: Thin Liquid Intake Strategies: Small Sips Solid Food Consistency: Dietary Recommendations: Grnd/Mech Altered (NDD2) Additional Modifications to Solid Foods: Recommend softer diet d/t oral phase dysphagia 2nd to limited dentition- GROUND/MECH ALTERED (NDD2) solids and THIN liquids, pills WHOLE in PUREE or LIQUID per tolerance/preference. Recommend supervision during meals to monitor tolerance and ensure aspiration precautions. MD, RN, RD notified via [employer] message. FIREARMS INSPECTOR will continue to follow. Oral Medication Intake: Whole with Liquid Compensatory Strategies and Precautions to be Taken for Safe Swallow: Sitting Upright (90 deg) Small Bites and Sips Alternate Liquids/Solids Rate of Ingestion Change Supervision While Eating and Drinking for Safe Swallow: Total Supervision (1:1) Swallowing Recommended Treatments: Compens. Strategy Educat. Recommendation for Speech: Inpatient Speech Therapy Gas Specialist Clinican/Clinical Fellow: No Supervisory Statement: I have reviewed and agree with the student/clinical fellow's documentation: N/A Speech Language Pathologist: Virgen Kuhn M.A., CCC-FIREARMS INSPECTOR
[2021-10-16 19:32] VITALS: BP 114/68; PULSE 127; RESP 18; TEMP 36.2; O2SAT 96
[2021-10-16 19:52] LABS: Glucose, Whole Blood 370 mg/dL (60-115)
[2021-10-16] MEDS: Atorvastatin Calcium 10 MG TABLET PO (20:30)
[2021-10-16 23:40] VITALS: BP 113/56; PULSE 92; RESP 20; TEMP 36.9; O2SAT 94
[2021-10-17 00:34] LABS: Glucose, Whole Blood 384 mg/dL (60-115)
[2021-10-17] MEDS: Insulin Lispro 100 UNIT/ML 3 ML VIAL SUBCUT ×3 (00:54→18:26)
[2021-10-17] MEDS: 0.9 % Sodium Chloride 1,000 ML 100 ML IVCONT ×2 (03:50→12:13)
[2021-10-17 04:00] VITALS: BP 117/51; PULSE 85; RESP 20; TEMP 36.7; O2SAT 98
[2021-10-17 04:23] LABS: Glucose, Whole Blood 102 mg/dL (60-115)
[2021-10-17 06:00] VITALS: BMI 29.8
[2021-10-17 06:09] LABS: Glucose, Whole Blood 200 mg/dL (60-115)
[2021-10-17 06:34] LABS: MANUAL DIFF FLAG NO
[2021-10-17 06:53] LABS: Basophils Percent Auto 0.6 % (0-2); Eosinophils Absolute Auto 0.1 X10*3/uL (0.0-0.4); Eosinophils Percent Auto 1.9 % (0-4); Hematocrit 30.4 % (37.0-47.0); Imm Gran Abs Auto 0.02 X10*3/uL (0.00-0.03); Imm Gran Pct Auto 0.3 % (0.0-0.4); Lymphocytes Absolute Auto 0.8 X10*3/uL (1.2-4.9); Lymphocytes Percent Auto 12.1 % (20-40); Mean Corpuscular HGB Conc 32.9 g/dl (31.0-35.0); Mean Corpuscular Hemoglobin 29.6 pg (27.0-33.0); Mean Corpuscular Volume 89.9 fL (80.0-98.0); Mean Platelet Volume 8.9 fL (9.4-12.3); Monocytes Percent Auto 14.3 % (2-11); Neutrophils Absolute Auto 4.9 x10*3/uL (2.0-8.3); Neutrophils Percent Auto 70.8 % (45-73); Platelet Count 297 X10*3/uL (160-400); Red Blood Count 3.38 X10*6/uL (4.20-5.50); Red Cell Distribution Width 13.3 % (11.0-16.0)
[2021-10-17 06:59] LABS: Alanine Aminotransferase 33 U/L (0-31); Albumin Level 3.3 g/dL (3.5-5.0); Alkaline Phosphatase 89 U/L (39-117); Anion Gap 14 (12-20); Aspartate Amino Transferase 57 U/L (5-31); Bilirubin Total 0.8 mg/dL (0.0-1.0); Blood Urea Nitrogen 49 mg/dL (9-16); Calcium 8.9 mg/dL (8.4-10.2); Carbon Dioxide 22 mmol/L (22-29); Chloride 104 mmol/L (96-108); Creatinine Clr Calc Pharmacy 32.6; Estimated Glomerular Filt Rate 38; Glucose Fasting 95 mg/dL (60-99); Potassium 4.5 mmol/L (3.3-5.1); Sodium 135 mmol/L (135-145); Total Protein 5.2 g/dL (6.5-8.0)
[2021-10-17 07:12] LABS: Glucose, Whole Blood 85 mg/dL (60-115)
[2021-10-17 07:17] VITALS: BP 124/58; PULSE 89; RESP 16; TEMP 37; O2SAT 97
[2021-10-17] MEDS: Aspirin 81 MG TAB.CHEW PO (09:28)
[2021-10-17] MEDS: Donepezil HCl 10 MG TABLET PO (09:28)
[2021-10-17 11:24] LABS: Glucose, Whole Blood 171 mg/dL (60-115)
[2021-10-17 11:30] VITALS: BP 159/78; PULSE 90; RESP 16; TEMP 37.1; O2SAT 95
--- NOTE | 2021-10-17 14:43 | MHC.SL.SWA ---
Speech Pathologist Impression: Oral Phase Dysphagia Risk of Aspiration Due to: Hx of Recent Extubation Reduced Cognition Dysphasia Diet Status: Upgrade Liquid Consistency and Strategies for Safe Swallow: Liquid Intake Recommendation: Thin Liquid Intake Strategies: Small Sips Solid Food Consistency: Dietary Recommendations: Chopped/Advanced (NDD3) Additional Modifications to Solid Foods: Oral Medication Intake: Whole with Liquid Compensatory Strategies and Precautions to be Taken for Safe Swallow: Sitting Upright (90 deg) Liquids from Cup Small Bites and Sips Alternate Liquids/Solids Supervision While Eating and Drinking for Safe Swallow: Intermittent Supervision Foods to Avoid: Swallowing Recommended Treatments: Compens. Strategy Educat. Recommendation for Speech: Inpatient Speech Therapy Comment: Pt seen this am for toleration of recommended diet and re-assessment of swallow. Pt was alert, speaking on phone to daughter when TXist entered. Pt reported that she had a good breakfast of eggs and juices. Pt had dentures in mouth, stated that she always as them in. Pt currently on diet of Ground Mech/Alt, w/thin liquids 2ndry to oral phase dysphagia/edentulous. Pt tooks sips of thin liquid self administered from cup, w/timely oral and pharyngeal phase noted, no clinical signs of aspiration. Pt self administered tsp of puree, w/ timely oral and pharyngeal phase, not clinical signs of aspiration. Pt was given piece of nicole cracker w/puree, and was able to masticate nicole cracker, propel bolus and swallow, w/ no residual or delay noted. Recommend UPGRADE diet to Chopped/Advanced (NDD3) continue w/ thin liquids. MD, Senior Report Developer advised of advancement of diet via secure text, MULTIFOCAL BUTTON GRINDER entered upgrade in EXPANSE. Frequency/Duration: Date Range for Service Req: Timeline to reassess: Cd Manufacturing Supervisor Clinican/Clinical Fellow: No Supervisory Statement: I have reviewed and agree with the student/clinical fellow's documentation: N/A Speech Language Pathologist: Chaparrita Carvalho M.A., CCC-MULTIFOCAL BUTTON GRINDER
[2021-10-17 15:07] VITALS: BP 126/52; PULSE 101; RESP 18; TEMP 37.1; O2SAT 96
[2021-10-17] MEDS: Enoxaparin Sodium 40 MG/0.4 ML SYRINGE SUBCUT (15:41)
--- NOTE | 2021-10-17 16:11 | PC.NURSE ---
Pt is alert and oriented x3. pt is more lucid than the previous day. pt continues on IVF therapy-NaCl running at 100ml/hr. Pt is a max assist of 1-2 especially in the am when she wakes up. Pt's called here several times for an update. Insulin Glucometer to LEFT MID ABD taken off afternoon per husbands request. Pt is NSR on tele with HR in 90s. Sodium level normalizing at 135.
--- NOTE | 2021-10-17 16:14 | P.PNIM_ITS ---
Subjective Subjective Date of Service: 10/17/21 Interval History: f/u on encephalopathy, hypOnatremia Review of Systems Gen: no fever Resp: no sob, no cough CV: no chest, no HADDAD, no leg edema GI: No n/v, no abd pain Neuro: No confusion Physical Exam Verdana 4l Vital Signs: Verdana 4d Verdana 4d Vital Signs: Verdana 4d Verdana 4Bd Last Vital Signs Verdana 4d Enamel Buffer New 4d Enamel Buffer New 4d Temp 98.8 F 10/17/21 15:07 Enamel Buffer New 4d Pulse 101 H 10/17/21 15:07 Enamel Buffer New 4d Resp 18 10/17/21 15:07 BP 126/52 L 10/17/21 15:07 Pulse Ox 96 10/17/21 15:07 BMI result Body Mass Index 29.8 Const: Other: General: AO X 3, no acute distress Resp: CTA bilateral CVS: S1,S2,RRR GI: +BS, NT, no distention Skin: No rash Neuro: motor grossly intact Psych: appropriate affect Objective Data Active Medications Aspirin (Aspirin 81 Mg Tab.Chew) 81 mg PO DAILY [facility] Last Admin: 10/17/21 09:28 Dose: 81 mg Documented by: WALTER Atorvastatin Calcium (Atorvastatin Calcium 10 Mg Tablet) 10 mg PO BEDTIME [facility] Last Admin: 10/16/21 20:30 Dose: 10 mg Documented by: LILIA Chlorhexidine Gluconate (Chlorhexidine Gluc Oral Rinse 15 Ml Mouthwash) 15 ml BUCCAL TID [facility] Last Admin: 10/14/21 22:33 Dose: 15 ml Documented by: CYBRADLEY Donepezil HCl (Donepezil Hcl 10 Mg Tablet) 10 mg PO DAILY [facility] Last Admin: 10/17/21 09:28 Dose: 10 mg Documented by: WALTER Enoxaparin Sodium (Enoxaparin Sodium 40 Mg/0.4 Ml Syringe) 40 mg SUBCUT Q24H [facility] Last Admin: 10/17/21 15:41 Dose: 40 mg Documented by: WALTER Insulin Human Lispro (Insulin Lispro 100 Unit/Ml 3 Ml Vial) 0 unit SUBCUT Q6H [facility]; Protocol Last Admin: 10/17/21 13:23 Dose: Not Given Documented by: WALTER Non-Admin Reason: No Insulin Coverage Omeprazole (Omeprazole 20 Mg/10 Ml Susp.Recon) 40 mg G-TUBE DAILY@0630 [facility] Last Admin: 10/17/21 06:22 Dose: 40 mg Documented by: LILIA Pharmacy Consult (Consult Rx Perform Med Rec) 1 each MISCELLANE ONCE PRN PRN Reason: Consult order Labs CBC & Chem 7: 10/17/21 06:20 10/17/21 06:20 Labs: Laboratory Results - last 24 hr 10/16/21 10/17/21 10/17/21 19:47 00:29 04:20 MCV MCH MCHC RDW Plt Count MPV Immature Gran % (Auto) Neut % (Auto) Lymph % (Auto) [place] % (Auto) Eos % (Auto) Baso % (Auto) Lymph # (Auto) [place] # (Auto) Eos # (Auto) Baso # (Auto) Abs Immat Gran (auto) Absolute Neuts (auto) Absolute Nucleated RBC Nucleated RBC % (auto) Anion Gap Estim Creat Clear Calc Estimated GFR POC Glucose 370 H* 384 H* 102 Fasting Glucose Calcium Total Bilirubin AST ALT Alkaline Phosphatase Total Protein Albumin 10/17/21 10/17/21 10/17/21 06:04 06:20 06:20 MCV 89.9 MCH 29.6 MCHC 32.9 RDW 13.3 Plt Count 297 MPV 8.9 L Immature Gran % (Auto) 0.3 Neut % (Auto) 70.8 Lymph % (Auto) 12.1 L [place] % (Auto) 14.3 H Eos % (Auto) 1.9 Baso % (Auto) 0.6 Lymph # (Auto) 0.8 L [place] # (Auto) 1.0 Eos # (Auto) 0.1 Baso # (Auto) 0.0 Abs Immat Gran (auto) 0.02 Absolute Neuts (auto) 4.9 Absolute Nucleated RBC 0.000 Nucleated RBC % (auto) 0.0 Anion Gap 14 Estim Creat Clear Calc 32.6 Estimated GFR 38 POC Glucose 200 H Fasting Glucose 95 Calcium 8.9 Total Bilirubin 0.8 AST 57 H ALT 33 H Alkaline Phosphatase 89 Total Protein 5.2 L Albumin 3.3 L 10/17/21 10/17/21 07:05 10:51 MCV MCH MCHC RDW Plt Count MPV Immature Gran % (Auto) Neut % (Auto) Lymph % (Auto) [place] % (Auto) Eos % (Auto) Baso % (Auto) Lymph # (Auto) [place] # (Auto) Eos # (Auto) Baso # (Auto) Abs Immat Gran (auto) Absolute Neuts (auto) Absolute Nucleated RBC Nucleated RBC % (auto) Anion Gap Estim Creat Clear Calc Estimated GFR POC Glucose 85 171 H Fasting Glucose Calcium Total Bilirubin AST ALT Alkaline Phosphatase Total Protein Albumin Assessment and Plan (1) Altered mental status, unspecified: Status: Acute (2) Acute hyponatremia: Status: Acute Plan 76yoF admitted with hyponatremia(113) and altered mental status requiring intubation. Sodium corrected and pt successfully extubated. Transferred to floor...HD stable but extremely confuse. This am...more easily reoriented.Sppech eval done...diet in 1. Hyponatremia -sodium normalized with fluid restriction/ures 2. DMII--Insulin 3. Dementia - exacerbated by recent events - continue Aricept/methenamine Full Code Lovenox Discussed with Amador. Adamant about pt returning home with services PT eval and dc home tomorrow Quality Stroke Does the patient have a stroke diagnosis?: No VTE Prior VTE?: No VTE Risk Level:: Medical - moderate - high VTE Device Contraindication: N/A - Device Ordered VTE Drug Contraindication: N/A - Med Ordered
[2021-10-17 18:17] LABS: Glucose, Whole Blood 387 mg/dL (60-115)
[2021-10-17 19:26] VITALS: BP 136/62; PULSE 98; RESP 18; TEMP 36.8; O2SAT 98
[2021-10-17] MEDS: Atorvastatin Calcium 10 MG TABLET PO (19:26)
[2021-10-17 23:47] VITALS: BP 140/66; PULSE 94; RESP 20; TEMP 36.9; O2SAT 93
[2021-10-18 00:10] LABS: Glucose, Whole Blood 229 mg/dL (60-115)
[2021-10-18] MEDS: Insulin Lispro 100 UNIT/ML 3 ML VIAL SUBCUT ×3 (00:19→13:27)
[2021-10-18 04:00] VITALS: BP 152/69; PULSE 92; TEMP 37.1
[2021-10-18 06:00] VITALS: BMI 30.9
[2021-10-18 06:22] LABS: Glucose, Whole Blood 228 mg/dL (60-115)
[2021-10-18 07:15] VITALS: BP 162/61; PULSE 89; RESP 17; TEMP 36.9; O2SAT 91
[2021-10-18 07:15] LABS: Glucose, Whole Blood 232 mg/dL (60-115)
[2021-10-18 07:34] LABS: MANUAL DIFF FLAG NO
[2021-10-18 07:54] LABS: Basophils Absolute Auto 0.1 X10*3/uL (0.0-0.2); Basophils Percent Auto 0.7 % (0-2); Eosinophils Absolute Auto 0.2 X10*3/uL (0.0-0.4); Eosinophils Percent Auto 2.3 % (0-4); Hematocrit 32.1 % (37.0-47.0); Hemoglobin 10.5 g/dl (12.0-16.0); Imm Gran Abs Auto 0.02 X10*3/uL (0.00-0.03); Imm Gran Pct Auto 0.3 % (0.0-0.4); Lymphocytes Absolute Auto 0.9 X10*3/uL (1.2-4.9); Lymphocytes Percent Auto 12.6 % (20-40); Mean Corpuscular HGB Conc 32.7 g/dl (31.0-35.0); Mean Corpuscular Volume 91.7 fL (80.0-98.0); Mean Platelet Volume 9.3 fL (9.4-12.3); Monocytes Absolute Auto 0.9 X10*3/uL (0.1-1.2); Monocytes Percent Auto 12.9 % (2-11); Neutrophils Absolute Auto 5.1 x10*3/uL (2.0-8.3); Neutrophils Percent Auto 71.2 % (45-73); Platelet Count 285 X10*3/uL (160-400); Red Cell Distribution Width 13.8 % (11.0-16.0); White Blood Count 7.1 X10*3/uL (4.8-10.8)
[2021-10-18 07:58] LABS: Alanine Aminotransferase 35 U/L (0-31); Albumin Level 3.3 g/dL (3.5-5.0); Alkaline Phosphatase 90 U/L (39-117); Anion Gap 16 (12-20); Aspartate Amino Transferase 48 U/L (5-31); Bilirubin Total 1.1 mg/dL (0.0-1.0); Blood Urea Nitrogen 33 mg/dL (9-16); Calcium 8.7 mg/dL (8.4-10.2); Carbon Dioxide 20 mmol/L (22-29); Chloride 102 mmol/L (96-108); Creatinine Clr Calc Pharmacy 38.8; Estimated Glomerular Filt Rate 45; Glucose Fasting 238 mg/dL (60-99); Potassium 4.7 mmol/L (3.3-5.1); Sodium 133 mmol/L (135-145); Total Protein 5.4 g/dL (6.5-8.0)
[2021-10-18] MEDS: Donepezil HCl 10 MG TABLET PO (09:47)
[2021-10-18] MEDS: Aspirin 81 MG TAB.CHEW PO (09:47)
[2021-10-18 11:02] LABS: Glucose, Whole Blood 260 mg/dL (60-115)
[2021-10-18 11:20] VITALS: BP 158/64; PULSE 86; RESP 17; TEMP 37.9; O2SAT 94
--- NOTE | 2021-10-18 12:04 | P.DS_ITS ---
DS: Providers Provider Date of Service: 10/18/21 Date of admission: 10/14/21 11:32 Primary care physician: Unknown Physician DS: Diagnosis Discharge Diagnosis (1) Altered mental status, unspecified: Status: Acute (2) Acute hyponatremia: Status: Acute DS: Summary Hospital Course Hospital Course: Admission HPI Mrs. Chilel was admitted to the ICU tafter being BIBA to the ED unresponsive and being intubated for airway protection. The patient is a 76 yo F with PMH of dementia x about 3 years, DM, orthostatic hypotension (thought due to autonomic dysfxn related to her DM; she used to take midodrine, doesn?t anymore), GERD.? She?s been admitted to [facility] multiple times over the last few years with syncopal episodes. She participates in [employer].? She lives w her at home.? She has a commode at the bedside at night.? Sounds like she needs significant help from her . Meds at home include: ?Vit B12 ?Donepezil 10mg ?Simvastatin 20 mg qhs ?Vit D ?ASA 81 daily ?probiotic ?omeprazole 20 mg ?Insulin Humalog w meals ?Lantus 13 u qhs at 9pm nightly.? (Her wants to make sure she gets it only at 9pm nightly.) According to lab data here at [facility] dating back to 1996, the patient has never previously had hyponatremia ECHO 01/2019 notable for low normal LV EF, normal right heart, severe mitral annular calcification with trace MR. HISTORY OF PRESENT ILLNESS:? Over the last week, he mental status has been a little more off than usual, and she?s lost control of her bladder/bowel twice.? The went to the doctor at [employer] yesterday and were told her sodium was low.? (Not sure what that means.)? The called EMS this morning because his was down on the floor and unresponsive.? EMS found her face down on the floor and unresponsive.? The reported that his was shaking.? The patient was BIBA to the ED after 9am this morning. In the ED, the patient was unresponsive and was intubated on arrival.? Because of the 's story, Dr. Clifton thought she might have had a sz at home.? Phys ical exam in the ED generally unremarkable.? Labs notable for sodium 113, BUN/creatinine 11/0.6, glucose 198, albumin 3.1.? The patient was started on normal saline at 100 cc/hour, and admitted to the ICU. On my exam, she?s pale, looks older than stated age.? Unresponsive on propofol drip 35ug.? HR 87, BP 160/82.? On AC 12/360cc/21%/+5, RR is 20, Ve 7L, PIP 15cm, ETCO2 38mm, Sat 97%.? Afebrile and normal thermic.? No jugular venous distention with the head of the bed at 20 degrees.? Chest clear to auscultation, with normal expiratory phase.? Heart rate and rhythm are regular, normal-sounding S1 and S2, with no murmur or gallops.? The abdomen is benign.? She has about <1+ peripheral in central edema. LABORATORY DATA:? Below.? Notably, the serum sodium as described above.? After 2 hours on the normal saline infusion, the serum sodium is up to 117. Patient was admitted through ICU for mechanical ventilation for airway pr otection in [facility] of encephalopathy and seizure related to profound hyponatremia. 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 TSH and cortisol level within normal. Mental status is back to baseline, she is no longer on urea. She was evaluated by PT and she and are adamant about her going back home. Time Spent with Patient Time attestation: Total time spent providing and/or coordinating discharge services: Discharge coordination time: Greater than 30 minutes Quality: Stroke Does the patient have a stroke diagnosis?: No Physical Exam Verdana 4l Vital Signs: Verdana 4d Verdana 4d Vital Signs: Verdana 4d Verdana 4Bd Last Vital Signs Verdana 4d Alloy Weigher New 4d Alloy Weigher New 4d Temp 100.3 F 10/18/21 11:20 Alloy Weigher New 4d Pulse 86 10/18/21 11:20 Alloy Weigher New 4d Resp 17 10/18/21 11:20 BP 158/64 H 10/18/21 11:20 Pulse Ox 94 10/18/21 11:20 BMI result Body Mass Index 30.9 Const: Other: General: AO X 3, no acute distress Resp: CTA bilateral CVS: S1,S2,RRR GI: +BS, NT, no distention Skin: No rash Neuro: motor grossly intact Psych: appropriate affect DS: Data Data Completed and Pending Labs on day of discharge: Laboratory Results - last 24 hr 10/17/21 10/18/21 10/18/21 18:13 00:06 06:15 WBC RBC Hgb Hct MCV MCH MCHC RDW Plt Count MPV Immature Gran % (Auto) Neut % (Auto) Lymph % (Auto) [place] % (Auto) Eos % (Auto) Baso % (Auto) Lymph # (Auto) [place] # (Auto) Eos # (Auto) Baso # (Auto) Abs Immat Gran (auto) Absolute Neuts (auto) Absolute Nucleated RBC Nucleated RBC % (auto) Sodium Potassium Chloride Carbon Dioxide Anion Gap BUN Creatinine Estim Creat Clear Calc Estimated GFR POC Glucose 387 H* 229 H 228 H Fasting Glucose Calcium Total Bilirubin AST ALT Alkaline Phosphatase Total Protein Albumin 10/18/21 10/18/21 10/18/21 06:39 06:39 07:09 WBC 7.1 RBC 3.50 L Hgb 10.5 L Hct 32.1 L MCV 91.7 MCH 30.0 MCHC 32.7 RDW 13.8 Plt Count 285 MPV 9.3 L Immature Gran % (Auto) 0.3 Neut % (Auto) 71.2 Lymph % (Auto) 12.6 L [place] % (Auto) 12.9 H Eos % (Auto) 2.3 Baso % (Auto) 0.7 Lymph # (Auto) 0.9 L [place] # (Auto) 0.9 Eos # (Auto) 0.2 Baso # (Auto) 0.1 Abs Immat Gran (auto) 0.02 Absolute Neuts (auto) 5.1 Absolute Nucleated RBC 0.000 Nucleated RBC % (auto) 0.0 Sodium 133 L Potassium 4.7 Chloride 102 Carbon Dioxide 20 L Anion Gap 16 BUN 33 H Creatinine 1.16 Estim Creat Clear Calc 38.8 Estimated GFR 45 POC Glucose 232 H Fasting Glucose 238 H Calcium 8.7 Total Bilirubin 1.1 H AST 48 H ALT 35 H Alkaline Phosphatase 90 Total Protein 5.4 L Albumin 3.3 L 10/18/21 10:53 WBC RBC Hgb Hct MCV MCH MCHC RDW Plt Count MPV Immature Gran % (Auto) Neut % (Auto) Lymph % (Auto) [place] % (Auto) Eos % (Auto) Baso % (Auto) Lymph # (Auto) [place] # (Auto) Eos # (Auto) Baso # (Auto) Abs Immat Gran (auto) Absolute Neuts (auto) Absolute Nucleated RBC Nucleated RBC % (auto) Sodium Potassium Chloride Carbon Dioxide Anion Gap BUN Creatinine Estim Creat Clear Calc Estimated GFR POC Glucose 260 H Fasting Glucose Calcium Total Bilirubin AST ALT Alkaline Phosphatase Total Protein Albumin Discharge Plan Discharge Anticipated Discharge Date/Time: 10/18/21 12:01 Patient Disposition: Home Health Service Discharge Diagnosis: HypOnatremia, Encephalopathy Referrals: [facility] [Other] - 1 Week Physician,Unknown J [Primary Care Provider] - 1 Week Discharge Medications: Continued donepezil 10 mg Tablet 10 mg PO DAILY 0RF omeprazole 20 mg Capsule,Delayed Release(Dr/Ec) 20 mg PO DAILY@0630 0RF aspirin 81 mg Tablet,Chewable 81 mg PO DAILY 0RF simvastatin 20 mg Tablet 20 mg PO BEDTIME 0RF Humalog U-100 Insulin 100 unit/mL Cartridge 4 unit SUBCUT DAILY 0RF Humalog U-100 Insulin 100 unit/mL Cartridge 6 unit SUBCUT DAILY@1200 0RF Humalog U-100 Insulin 100 unit/mL Cartridge 3 unit SUBCUT QPM 0RF Lantus Solostar U-100 Insulin 100 unit/mL (3 mL) Insulin Pen 13 unit SUBCUT BEDTIME 0RF methenamine hippurate 1 gram Tablet 1 g PO BID 0RF cyanocobalamin (vitamin B-12) 500 mcg Tablet 500 mcg PO DAILY 0RF cholecalciferol (vitamin D3) [Vitamin D3] 125 mcg (5,000 unit) Tablet 125 mcg PO DAILY 0RF Culturelle 10 billion cell Capsule 1 cap PO BID 0RF Discharge Orders: Discharge Order (Routine); Ordered 10/18/21 Ordered By: Edward Bassett Diet: advance to usual diet and regular diet Activity on Discharge: As tolerated Stand Alone Forms: Patient Portal Discharge page Care Plan Goals: Full recovery from encephalopathy, and hyponatremia Health Concerns: HypOnatremia Plan of Treatment: Do not drink too much water, probably no more than 1500 a day, follow up with your Doctor within a week Assessment: As above Discharge Date/Time: 10/18/21 15:26
--- NOTE | 2021-10-18 13:00 | MHC.CM.PN ---
pt dcd home with services thru [facility] [address]
--- NOTE | 2021-10-18 13:08 | MHC.CM.PN ---
pt spoke with raghav shirley from [facility] she will arrange for a pt eval for pt at her home ro arrange for transport home
[2021-10-18] MEDS: Enoxaparin Sodium 40 MG/0.4 ML SYRINGE SUBCUT (13:27)
--- NOTE | 2021-10-18 13:57 | MHC.SLORD ---
Speech Language Pathology Order Status: Pt refused trials today though she is tolerating current diet without issues.
== END 2021-10-18 15:26 | disposition home health service (06) | DRG 643 ==
LOC: HO.ED 11:14 → HO.EDOVER 12:10 → HO.ICU 12:30 → HO.IMC 10-15 07:18
PROVIDERS: Hospitalist; Internal Medicine; Internal Medicine Nephrology; Physician Assistant Medical; Admitting Provider Anesthesiology; Emergency Provider Emergency Medicine; Visit Provider Internal Medicine
DX: E22.2 Syndrome of inappropriate secretion of antidiuretic hormone (principal); J96.01 Acute respiratory failure with hypoxia; E11.9 Type 2 diabetes mellitus without complications; I95.1 Orthostatic hypotension; K21.9 Gastro-esophageal reflux disease without esophagitis; F03.90 Unspecified dementia, unspecified severity, without behavioral disturbance, psychotic disturbance, mood disturbance, and anxiety; Z20.822 Contact with and (suspected) exposure to COVID-19; Z88.2 Allergy status to sulfonamides; Z79.4 Long term (current) use of insulin; Z79.82 Long term (current) use of aspirin; Z79.899 Other long term (current) drug therapy
CPT/HCPCS: 36415; 36600; 70450; 70496; 70498; 71045; 80048; 80053; 81001; 82436; 82533; 82803; 82947; 83735; 83930; 84100; 84133; 84295; 84300; 84443; 84484; 84550; 85025; 85610; 85730; 87635; 92526; 92610; 93005; 94002; 94799; 96365; 96375; 97162; 99285; 99291; J0171; J0330; J0461; J1650; J2060; J2370; J3475

== ENCOUNTER 2022-01-20 11:36 | Emergency (ER) | payer OTHER, SELFPAY ==
--- NOTE | ~2022-01-20 | XR_ITS ---
EXAMINATION: XR CHEST CLINICAL INFORMATION: Hypertension. COMPARISON: 10/14/2021 and 03/12/[address] dated 10/01/2017. TECHNIQUE: 2 views of the chest were obtained. FINDINGS: Support devices: Interval removal of endotracheal and enteric tubes. Mild linear markings are seen in the mid and lower lung ele bilaterally. The heart and mediastinal structures are unremarkable. XR/XR chest 2V IMPRESSION: Mild linear markings bilaterally show similar distribution to previous studies consistent with chronic scarring/atelectasis and bronchiectasis seen on multiple previous studies dating back to 2018. No acute cardiopulmonary process.
[2022-01-20 11:46] VITALS: BP 196/94; BP 217/93; PULSE 86; PULSE 89; RESP 18; TEMP 36.8; O2SAT 97; O2SAT 99; BMI 23.7
[2022-01-20 11:49] LABS: Glucose, Whole Blood 194 mg/dL (60-115)
[2022-01-20 12:00] VITALS: BP 207/87; PULSE 86; RESP 17; O2SAT 98
--- NOTE | 2022-01-20 12:10 | ECG_ITS ---
Test Reason : HI BP Blood Pressure : / mmHG Vent. Rate : 082 BPM Atrial Rate : 082 BPM P-R Int : 134 ms QRS Dur : 100 ms QT Int : 402 ms P-R-T Axes : 055 087 034 degrees QTc Int : 469 ms Normal sinus rhythm Nonspecific ST-T changes Abnormal ECG When compared with ECG of 14-OCT-2021 10:06, Nonspecific T wave abnormality now evident in Inferior leads T wave inversion more evident in Anterior leads QT has shortened Referred By: Mandie Ross Electronically Signed By:Acosta Meehan
--- NOTE | 2022-01-20 12:12 | ED_ITS ---
HPI - General Adult General Chief complaint: General Medical Stated complaint: DIFF SWALLOWING Time Seen by Provider: 01/20/22 11:49 Source: patient, family and EMS Mode of arrival: EMS Limitations: altered mental status History of Present Illness HPI narrative: 76-year-old female with history of dementia, esophageal stricture with ballooning approximately 20 years ago (Dr Robert), insulin-dependent diabetes, GERD here with reports of difficulty swallowing over the last 2 weeks progressing. Today not able to eat pureed ham, shake or water. tells me the patient just spits it back up. No reported pain. Has been is concern is the patient is a insulin-dependent diabetic and he is worried that S she cannot tolerate anything by mouth her blood sugar may lower. He called the primary care and they have an appointment on Saturday to discuss this. However as the patient was unable to drink any water today he brought her into the emergency department. Related Data Home Medications Medication Instructions Recorded Confirmed Lactobacillus rhamnosus GG 10 1 cap PO BID 10/14/21 01/20/22 billion cell capsule (Culturelle) aspirin 81 mg chewable tablet 81 mg PO DAILY 10/14/21 01/20/22 cholecalciferol (vitamin D3) 125 125 mcg PO DAILY 10/14/21 01/20/22 mcg (5,000 unit) tablet (Vitamin D3) cyanocobalamin (vitamin B-12) 500 500 mcg PO DAILY 10/14/21 01/20/22 mcg tablet donepezil 10 mg tablet 10 mg PO DAILY 10/14/21 01/20/22 insulin glargine 100 unit/mL (3 13 unit SUBCUT BEDTIME 10/14/21 01/20/22 mL) subcutaneous pen (Lantus Solostar U-100 Insulin) insulin lispro 100 unit/mL 2 unit SUBCUT QPM 10/14/21 01/20/22 subcutaneous cartridge (Humalog U-100 Insulin) insulin lispro 100 unit/mL 4 unit SUBCUT DAILY 10/14/21 01/20/22 subcutaneous cartridge (Humalog U-100 Insulin) insulin lispro 100 unit/mL 6 unit SUBCUT DAILY@1200 10/14/21 01/20/22 subcutaneous cartridge (Humalog U-100 Insulin) methenamine hippurate 1 gram tablet 1 g PO BID 10/14/21 01/20/22 simvastatin 20 mg tablet 20 mg PO BEDTIME 10/14/21 01/20/22 sodium chloride 1 gram tablet 1 tab PO DAILY 01/20/22 01/20/22 Allergies Allergy/AdvReac Type Severity Reaction Status Date / Time Sulfa (Sulfonamide Allergy Severe RASH/HIVES, Verified 10/14/21 16:39 Antibiotics) hives [SULFA (SULFONAMIDE ANTIBIOTICS)] insulin aspart Allergy Unknown HIVES Verified 10/14/21 16:39 [From NOVOLOG U-100 INSULIN ASPART] levofloxacin [From LEVAQUIN] AdvReac Intermediate BLOOD Verified 10/14/21 16:39 SUGAR DROPS milk [MILK] AdvReac Mild NAUSEA Verified 10/14/21 16:39 Review of Systems Review of Systems: Yes all other systems are reviewed and are negative Constitutional: Constitutional: Reports no additional constitutional complaints, Denies body ache(s), Denies chills, Denies fever(s), Denies headache(s) and Denies weakness Eyes: Eyes: Reports no additional eye complaints and Denies change in vision ENT: Reports system reviewed and no additional complaints, except as documented, Reports dysphagia, Denies dizziness, Denies headache(s), Denies nasal congestion, Denies nasal discharge and Denies neck pain Cardiovascular: Cardiovascular: Reports no additional cardiovascular complaints, Denies chest pain, Denies leg edema and Denies dyspnea Respiratory: Respiratory: Reports no additional respiratory complaints, Denies cough and Denies dyspnea Gastrointestinal: Gastrointestinal: Reports no additional gastrointestinal complaints, Denies abdominal pain, Reports dysphagia, Denies diarrhea, Denies nausea and Denies vomiting Genitourinary: Genitourinary: Reports no additional female genitourinary complaints and Denies urinary incontinence Musculoskeletal: Musculoskeletal: Reports no additional musculoskeletal complaints, Denies back pain, Denies arthralgias, Denies joint swelling, Denies neck pain, Denies numbness and Denies tingling Integumentary/Breasts: Skin/Breast: Reports system reviewed and no additional complaints, except as docu and Denies rash Neurologic: Reports system reviewed and no additional complaints, except as documented, Reports confusion, Denies dizziness, Denies headache(s), Denies numbness, Denies tingling and Denies weakness Psychiatric: Psychiatric: Reports confusion PMFSH Past Medical History Attestation statement: The following information was validated with the patient. Source: old records reviewed and nursing notes reviewed Medical History (Updated 01/20/22 @ 16:15 by Mandie Ross NP) CAD (coronary artery disease) CKD (chronic kidney disease), stage III COVID-19 Dementia DM type 1 (diabetes mellitus, type 1) Esophageal dilatation GERD (gastroesophageal reflux disease) Glaucoma HTN (hypertension) Hypercholesterolemia Hyperkalemia Hypothyroid Neuropathy Orthostatic hypotension POTS (postural orthostatic tachycardia syndrome) PPD positive QT prolongation Retinopathy Vitamin B12 deficiency Social History Social History Household Members: Spouse Housing: House Do you presently have visiting nurse or other home services: No (unable to asess) Unable to assess alcohol history related to: Unable to respond Patient Tobacco Use Status: Never used Tobacco Smoked in Last 30 Days: No Use of substances other than those prescribed or required for medical reasons: No Advance Directives: Yes Advance Directives on File: Yes Advance Directives Date on File: 10/14/21 service: No Current occupational status: retired Physical Exam ED Vital Signs: Vital Signs - 24 hr 01/20/22 11:46 01/20/22 12:00 01/20/22 14:40 Temperature 98.2 F Pulse Rate 86 86 88 Respiratory Rate 18 17 18 Blood Pressure 217/93 H 207/87 H 206/87 H Pulse Oximetry 97 98 99 BMI result Body Mass Index 23.7 Const General: cooperative, healthy appearing, comfortable, alert and confusion Orientation/consciousness: confusion Limitations: altered mental status HENMT Head: Yes normal to inspection Ears: hearing grossly normal bilaterally General nose exam: Normal external nose present Face and sinus: Yes normal facial exam Mouth: Normal oral and palatal mucosa present Teeth and gingiva: dentition normal Throat: Yes posterior oropharynx normal, Yes tonsils normal and Yes uvula midline Eyes General: appearance normal, both eyes and all related structures Pupils: Equal, round and reactive pupils present Neck Neck: Yes normal visual inspection, Yes full ROM, Yes no lymphadenopathy and Yes no meningeal signs Chest Chest palpation & inspection: normal inspection of the chest Resp Effort & Inspection: normal respiratory effort Auscultation: clear to auscultation bilaterally Cardio Rate: regular rate Rhythm: regular rhythm Peripheral pulses: Peripheral pulses 2+ throughout GI Inspection: Yes normal to inspection Palpation (GI): Soft to palpation and nontender General: Yes no CVA tenderness Back/Spine/Pelvis Back: no CVA tenderness Skin General skin exam: no rashes or lesions noted Neuro General: moves all extremities, no meningeal signs and confusion Cranial nerves: Yes Equal, round and reactive pupils present Extrem General: Yes normal to inspection, Yes no calf tenderness and Yes edema (2+ bilaterally) Course Course Course Narrative: 76-year-old female here with progressive difficulty swallowing over the last 2 weeks now with inability to tolerate any liquids. Patient has no complaints but has history of dementia and history of present illness is limited and the domingo ority of this is obtained from the was at the bedside. Patient has history of esophageal stricture requiring balloon dilation in the past by Dr. Robert. Patient attempted to drink water in the emergency department but immediately spit it out. Patient noted to have a high blood pressure on arrival 217/93. Per the patient has a normal blood pressure usually. She does not take any medications for blood pressure. In the past she has even had low blood pressures requiring midodrine but she is no longer taking this. The does report that she has had some increased lower extremity swelling over the last month or 2 and has had a cough which is worsened at night time. No reports of shortness of breath or chest pain. Will check labs, EKG, chest x-ray. Anticipate admission with GI involvement Reevaluation(s) Reevaluation #1: Labs are unremarkable with the exception of mild hyponatremia. Chest x-ray and EKG show no acute finding. Patient unable to tolerate p.o.. Will speak to GI. Time: 13:15 Reevaluation #2: I did try having the patient drink water but she immediately spit the water back out. Tells me my throat feels very tight. Spoke to Dr Mendez who will plan on performing EGD today. Blood pressure 200 systolic. Asymptomatic. ?underlying HTN. Reviewed vitals from last visit with blood pressure range around 150 systolic. Patient not taking midodrine anymore. She is on salt tablets. Will follow. Time: 13:30 Reevaluation #3: Spoke to Dr Thompson who accepted admission Time: 14:05 Medical Decision Making [facility] Narrative Medical decision making narrative: Esophageal stricture, food impaction, CHF Medical Records Medical records reviewed: Yes I reviewed the patient's medical records. Lab Data Result diagrams: 01/20/22 12:22 01/20/22 12:22 Labs: Lab Results 01/20/22 01/20/22 01/20/22 Range/Units 11:46 12:18 12:22 WBC 4.9 (4.8-10.8) X10*3/uL RBC 4.18 L (4.20-5.50) X10*6/uL Hgb 12.2 (12.0-16.0) g/dl Hct 36.9 L (37.0-47.0) % MCV 88.3 (80.0-98.0) fL MCH 29.2 (27.0-33.0) pg MCHC 33.1 (31.0-35.0) g/dl RDW 13.1 (11.0-16.0) % Plt Count 241 (160-400) X10*3/uL MPV 8.7 L (9.4-12.3) fL Immature Gran % (Auto) 0.2 (0.0-0.4) % Neut % (Auto) 70.4 (45-73) % Lymph % (Auto) 13.1 L (20-40) % Pratt % (Auto) 14.5 H (2-11) % Eos % (Auto) 1.4 (0-4) % Baso % (Auto) 0.4 (0-2) % Lymph # (Auto) 0.6 L (1.2-4.9) X10*3/uL Pratt # (Auto) 0.7 (0.1-1.2) X10*3/uL Eos # (Auto) 0.1 (0.0-0.4) X10*3/uL Baso # (Auto) 0.0 (0.0-0.2) X10*3/uL Abs Immat Gran (auto) 0.01 (0.00-0.03) X10*3/uL Absolute Neuts (auto) 3.5 (2.0-8.3) x10*3/uL Absolute Nucleated RBC 0.000 (0.0-0.012) X10*3/uL Nucleated RBC % (auto) 0.0 (0.0-0.2) /100WBC PT (9.9-13.0) SEC INR (0.9-1.1) Sodium (135-145) mmol/L Potassium (3.3-5.1) mmol/L Chloride (96-108) mmol/L Carbon Dioxide (22-29) mmol/L Anion Gap (12-20) BUN (9-16) mg/dL Creatinine (0.5-1.4) mg/dL Estim Creat Clear Calc Estimated GFR POC Glucose 194 H (60-115) mg/dL Random Glucose (60-115) mg/dL Calcium (8.4-10.2) mg/dL Magnesium (1.6-2.6) mg/dL Total Bilirubin (0.0-1.0) mg/dL Direct Bilirubin (0.0-0.5) mg/dL AST (5-31) U/L ALT (0-31) U/L Alkaline Phosphatase (39-117) U/L Troponin I High Sens (<3.5-17.0) ng/L B-Natriuretic Peptide (<100) pg/mL Total Protein (6.5-8.0) g/dL Albumin (3.5-5.0) g/dL COVID-19 (CRISTINO) Negative (Negative) COVID-19 Clin Com See Note 01/20/22 01/20/22 01/20/22 Range/Units 12:22 12:22 12:22 WBC (4.8-10.8) X10*3/uL RBC (4.20-5.50) X10*6/uL Hgb (12.0-16.0) g/dl Hct (37.0-47.0) % MCV (80.0-98.0) fL MCH (27.0-33.0) pg MCHC (31.0-35.0) g/dl RDW (11.0-16.0) % Plt Count (160-400) X10*3/uL MPV (9.4-12.3) fL Immature Gran % (Auto) (0.0-0.4) % Neut % (Auto) (45-73) % Lymph % (Auto) (20-40) % Pratt % (Auto) (2-11) % Eos % (Auto) (0-4) % Baso % (Auto) (0-2) % Lymph # (Auto) (1.2-4.9) X10*3/uL Pratt # (Auto) (0.1-1.2) X10*3/uL Eos # (Auto) (0.0-0.4) X10*3/uL Baso # (Auto) (0.0-0.2) X10*3/uL Abs Immat Gran (auto) (0.00-0.03) X10*3/uL Absolute Neuts (auto) (2.0-8.3) x10*3/uL Absolute Nucleated RBC (0.0-0.012) X10*3/uL Nucleated RBC % (auto) (0.0-0.2) /100WBC PT 12.7 (9.9-13.0) SEC INR 1.1 (0.9-1.1) Sodium 130 L (135-145) mmol/L Potassium 4.6 (3.3-5.1) mmol/L Chloride 96 (96-108) mmol/L Carbon Dioxide 26 (22-29) mmol/L Anion Gap 13 (12-20) BUN 15 D (9-16) mg/dL Creatinine 0.93 (0.5-1.4) mg/dL Estim Creat Clear Calc 47.3 Estimated GFR 58 POC Glucose (60-115) mg/dL Random Glucose 177 H (60-115) mg/dL Calcium 9.2 (8.4-10.2) mg/dL Magnesium 1.9 (1.6-2.6) mg/dL Total Bilirubin 0.9 (0.0-1.0) mg/dL Direct Bilirubin 0.4 (0.0-0.5) mg/dL AST 14 D (5-31) U/L ALT 10 (0-31) U/L Alkaline Phosphatase 99 (39-117) U/L Troponin I High Sens 5.3 (<3.5-17.0) ng/L B-Natriuretic Peptide 73 (<100) pg/mL Total Protein 6.4 L (6.5-8.0) g/dL Albumin 3.9 (3.5-5.0) g/dL COVID-19 (CRISTINO) (Negative) COVID-19 Clin Com Imaging Data Chest x-ray: Attestation: I personally reviewed and interpreted this imaging study as follows: Radiologist's impression: [address] [place] [address] XRay Report Signed Patient: Lima Rene MR#: [id number] : 1945 Acct:[id number] Age/Sex: 76 / F ADM Date: 01/20/22 Loc: .ED Attending Dr: Ordering Physician: Mandie Ross NP Date of Service: 01/20/22 Procedure(s): XR chest 2V Accession Number(s): [id number] cc: Mandie Ross NP~ EXAMINATION: XR CHEST CLINICAL INFORMATION: Hypertension. COMPARISON: 10/14/2021 and 03/12/[address] dated 10/01/2017. TECHNIQUE: 2 views of the chest were obtained. FINDINGS: Support devices: Interval removal of endotracheal and enteric tubes. Mild linear markings are seen in the mid and lower lung lee bilaterally. The heart and mediastinal structures are unremarkable. XR/XR chest 2V IMPRESSION: Mild linear markings bilaterally show similar distribution to previous studies consistent with chronic scarring/atelectasis and bronchiectasis seen on multiple previous studies dating back to 2018. No acute cardiopulmonary process. ECG Data Attestation: I personally reviewed and interpreted this ECG as follows: Interpretation: 1209-normal sinus rhythm with a rate 82, normal MT, normal QRS, ST changes in leads V4 through V6 which are unchanged when compared to previous EKG from 10/14/2021. Discharge Plan Discharge Clinical Impression: Stricture of esophagus, Acute hyponatremia, Hypertension Patient Disposition: Admitted As Inpatient Interventions: Admission Worksheet (ED) Last Done: 01/20/22 15:31
[2022-01-20 12:26] LABS: MANUAL DIFF FLAG NO
[2022-01-20 12:29] LABS: Basophils Percent Auto 0.4 % (0-2); Eosinophils Absolute Auto 0.1 X10*3/uL (0.0-0.4); Eosinophils Percent Auto 1.4 % (0-4); Hematocrit 36.9 % (37.0-47.0); Hemoglobin 12.2 g/dl (12.0-16.0); Imm Gran Abs Auto 0.01 X10*3/uL (0.00-0.03); Imm Gran Pct Auto 0.2 % (0.0-0.4); Lymphocytes Absolute Auto 0.6 X10*3/uL (1.2-4.9); Lymphocytes Percent Auto 13.1 % (20-40); Mean Corpuscular HGB Conc 33.1 g/dl (31.0-35.0); Mean Corpuscular Hemoglobin 29.2 pg (27.0-33.0); Mean Corpuscular Volume 88.3 fL (80.0-98.0); Mean Platelet Volume 8.7 fL (9.4-12.3); Monocytes Absolute Auto 0.7 X10*3/uL (0.1-1.2); Monocytes Percent Auto 14.5 % (2-11); Neutrophils Absolute Auto 3.5 x10*3/uL (2.0-8.3); Neutrophils Percent Auto 70.4 % (45-73); Platelet Count 241 X10*3/uL (160-400); Red Blood Count 4.18 X10*6/uL (4.20-5.50); Red Cell Distribution Width 13.1 % (11.0-16.0); White Blood Count 4.9 X10*3/uL (4.8-10.8)
[2022-01-20 12:34] LABS: INTERNATIONAL NORM RATIO 1.1 (0.9-1.1); Prothrombin Time 12.7 SEC (9.9-13.0)
[2022-01-20 12:47] LABS: Alanine Aminotransferase 10 U/L (0-31); Albumin Level 3.9 g/dL (3.5-5.0); Alkaline Phosphatase 99 U/L (39-117); Anion Gap 13 (12-20); Aspartate Amino Transferase 14 U/L (5-31); Bilirubin Direct 0.4 mg/dL (0.0-0.5); Bilirubin Total 0.9 mg/dL (0.0-1.0); Blood Urea Nitrogen 15 mg/dL (9-16); Calcium 9.2 mg/dL (8.4-10.2); Carbon Dioxide 26 mmol/L (22-29); Chloride 96 mmol/L (96-108); Creatinine Clr Calc Pharmacy 47.3; Estimated Glomerular Filt Rate 58; Glucose Random 177 mg/dL (60-115); Magnesium 1.9 mg/dL (1.6-2.6); Potassium 4.6 mmol/L (3.3-5.1); Sodium 130 mmol/L (135-145); Total Protein 6.4 g/dL (6.5-8.0)
[2022-01-20 12:49] LABS: B Type Natriuretic Peptide 73 pg/mL (<100); Troponin-I High Sensitivity 5.3 ng/L (<3.5-17.0)
[2022-01-20 12:54] LABS: COVID-19 Test Negative (Negative); IDNOW Serial# 16C4AD1C
[2022-01-20 14:40] VITALS: BP 206/87; PULSE 88; RESP 18; O2SAT 99
--- NOTE | 2022-01-20 14:47 | P.CNGI_ITS ---
History of Present Illness Data of Consult Service Date: 01/20/22 Requesting physician: Mandie Ross Primary Care Provider: Bob Stephenson MD [facility] Reason for consult: dysphagia, food impaction 76 YF with type 1 DM, CAD, CKD and dementia came to [facility] with her with worsening dysphagia over the past 2-3 week: 76-year-old female with history of dementia, esophageal stricture with ballooning approximately 20 years ago (Dr Forte), insulin-dependent diabetes, GERD here with reports of difficulty swallowing over the last 2 weeks progressing.? Today not able to eat pureed ham, shake or water.? tells me the patient just spits it back up.? No reported pain.? Has been is concern is the patient is a insulin-dependent diabetic and he is worried that S she cannot tolerate anything by mouth her blood sugar may lower.? He called the primary care and they have an appointment on Saturday to discuss this.? However as the patient was unable to drink any water today he brought her into the emergency department . History obtained from the patient and her who was at her bedside. Pt has been having intermittent dysphagia for the past 2-3 weeks. She has been taking snacks with a lot of water. Food goes down and she coughs it back up after a little while. She was able to eat yesterday. At 9:15 am today she had some eggs and bread which came back up. At 10 am, her gave her a milk shake for diabetics which came back up. On arrival in the ED, pt was given some water which she regurgitated Patient denies symptoms of heartburn, dysphagia, recent change in appetite or weight. Denies recent change in bowel habits, constipation, diarrhea, black stools or re ctal bleeding. Patient denies major cardiac or pulmonary problems, loud snoring or sleep apnea Denies being on chronic anticoagulation. Patient denies smoking or EtOH use - just drinks water - no juice or sodas Pt is and lives with her of 57 yrs and has 4 children. 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 Her Dad had stomach cancer IMAGING STUDIES: 01/20/22 CHEST XRAY SHOWED: Mild linear markings bilaterally show similar distribution to previous studies consistent with chronic scarring/atelectasis and bronchiectasis seen on multiple previous studies dating back to 2018. No acute cardiopulmonary process. ENDOSCOPIC STUDIES: OCT 2008 EGD WAS PERFORMED BY DR FORTE: A tight benign appearing stricture was noted at 30 cms. Stricture was dilated with 10 and 12 mm balloon to allow passage of the endosc ope. A moderate sized hiatal hernia was also noted Additional dilation was performed with a 14 to 16 mm balloon. 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 PAST GI HISTORY BY REVIEW OF MEDICAL RECORDS: Pt was hospitalized in Sep, 2021 with severe hyponatremia complicated by a seizure and she was admitted to the ICU in an unresponsive state. Review of Systems Review of Systems: Yes all other systems are reviewed and are negative Constitutional: Constitutional: Reports no additional constitutional complaints, Denies body ache(s), Denies chills, Denies fever(s), Denies headache(s) and Denies weakness Eyes: Eyes: Reports no additional eye complaints and Denies change in vision ENT: Reports system reviewed and no additional complaints, except as documented, Reports dysphagia, Denies dizziness, Denies headache(s), Denies nasal congestion, Denies nasal discharge and Denies neck pain Cardiovascular: Cardiovascular: Reports no additional cardiovascular complaints, Denies chest pain, Denies leg edema and Denies dyspnea Respiratory: Respiratory: Reports no additional respiratory complaints, Denies cough and Denies dyspnea Gastrointestinal: Gastrointestinal: Reports no additional gastrointestinal complaints, Denies abdominal pain, Reports dysphagia, Denies diarrhea, Denies nausea and Denies vomiting Genitourinary: Genitourinary: Reports no additional female genitourinary complaints and Denies urinary incontinence Musculoskeletal: Musculoskeletal: Reports no additional musculoskeletal complaints, Denies back pain, Denies arthralgias, Denies joint swelling, Denies neck pain, Denies numbness and Denies tingling Integumentary/Breasts: Skin/Breast: Reports system reviewed and no additional complaints, except as docu and Denies rash Neurologic: Reports system reviewed and no additional complaints, except as documented, Denies dizziness, Denies headache(s), Denies numbness, Denies tingling and Denies weakness [facility] Past Medical History Medical History (Updated 01/21/22 @ 00:01 by Omar Feldman) CAD (coronary artery disease) CKD (chronic kidney disease), stage III COVID-19 Dementia DM type 1 (diabetes mellitus, type 1) Esophageal dilatation GERD (gastroesophageal reflux disease) Glaucoma HTN (hypertension) Hypercholesterolemia Hyperkalemia Hypothyroid Neuropathy Orthostatic hypotension POTS (postural orthostatic tachycardia syndrome) PPD positive QT prolongation Retinopathy Vitamin B12 deficiency Social History Social History Household Members: Spouse Housing: House Do you presently have visiting nurse or other home services: No (unable to asess) Unable to assess alcohol history related to: Unable to respond Patient Tobacco Use Status: Never used Tobacco Smoked in Last 30 Days: No Use of substances other than those prescribed or required for medical reasons: No Advance Directives: Yes Advance Directives on File: Yes Advance Directives Date on File: 10/14/21 service: No Current occupational status: retired Meds Allergies Allergy/AdvReac Type Severity Reaction Status Date / Time Sulfa (Sulfonamide Allergy Severe RASH/HIVES, Verified 10/14/21 16:39 Antibiotics) hives [SULFA (SULFONAMIDE ANTIBIOTICS)] insulin aspart Allergy Unknown HIVES Verified 10/14/21 16:39 [From NOVOLOG U-100 INSULIN ASPART] levofloxacin [From LEVAQUIN] AdvReac Intermediate BLOOD Verified 10/14/21 16:39 SUGAR DROPS milk [MILK] AdvReac Mild NAUSEA Verified 10/14/21 16:39 Active Medications: Current Medications Pharmacy Consult (Consult Rx Perform Med Rec) 1 each MISCELLANE ONCE PRN PRN Reason: Consult order Home Medications Medication Instructions Recorded Confirmed Last Taken Type Lactobacillus rhamnosus GG 10 1 cap PO BID 10/14/21 01/20/22 01/20/22 History billion cell capsule (Culturelle) aspirin 81 mg chewable tablet 81 mg PO DAILY 10/14/21 01/20/22 01/20/22 History cholecalciferol (vitamin D3) 125 125 mcg PO DAILY 10/14/21 01/20/22 01/20/22 History mcg (5,000 unit) tablet (Vitamin D3) cyanocobalamin (vitamin B-12) 500 500 mcg PO DAILY 10/14/21 01/20/22 01/20/22 History mcg tablet donepezil 10 mg tablet 10 mg PO DAILY 10/14/21 01/20/22 01/20/22 History insulin glargine 100 unit/mL (3 13 unit SUBCUT BEDTIME 10/14/21 01/20/22 01/19/22 History mL) subcutaneous pen (Lantus Solostar U-100 Insulin) insulin lispro 100 unit/mL 2 unit SUBCUT QPM 10/14/21 01/20/22 01/19/22 History subcutaneous cartridge (Humalog U-100 Insulin) insulin lispro 100 unit/mL 4 unit SUBCUT DAILY 10/14/21 01/20/22 01/20/22 History subcutaneous cartridge (Humalog U-100 Insulin) insulin lispro 100 unit/mL 6 unit SUBCUT DAILY@1200 10/14/21 01/20/22 01/19/22 History subcutaneous cartridge (Humalog U-100 Insulin) methenamine hippurate 1 gram tablet 1 g PO BID 10/14/21 01/20/22 01/20/22 Hist ory simvastatin 20 mg tablet 20 mg PO BEDTIME 10/14/21 01/20/22 01/19/22 History sodium chloride 1 gram tablet 1 tab PO DAILY 01/20/22 01/20/22 01/19/22 History Physical Exam Vital Signs: Vital Signs: Last Vital Signs Temp 98.2 F 01/20/22 11:46 Pulse 88 01/20/22 14:40 Resp 18 01/20/22 14:40 BP 206/87 H 01/20/22 14:40 Pulse Ox 99 01/20/22 14:40 BMI result Body Mass Index 23.7 Const: General: cooperative Nutritional Appearance: average body habitus Orientation/consciousness: oriented to person and oriented to place Limitations: no limitations HEENT: Head: Yes normal to inspection Ears: hearing grossly normal bilaterally Mouth: Normal oral and palatal mucosa present Eyes: Sclerae: sclerae normal Pupils: Equal, round and reactive pupils present Neck: Neck: Yes normal visual inspection Chest: Chest palpation & inspection: normal inspection of the chest Resp: Effort & Inspection: normal respiratory effort Auscultation: clear to auscultation bilaterally Cardio: Palpation: normal PMI Rate: regular rate Rhythm: regular rhythm Heart sounds: S1 normal heart sound present, S2 normal heart sound present and no murmurs GI: Palpation (GI): Soft to palpation, nontender and No hepatosplenomegaly present Auscultation: normal bowel sounds Rectal Exam - Female: deferred Skin: General skin exam: no rashes or lesions noted Neuro: General: oriented to person and oriented to place Cranial nerves: Yes Equal, round and reactive pupils present Psych: Appearance: grossly normal Mental Status: mental status grossly normal Results Labs CBC & Chem 7: 01/20/22 12:22 01/20/22 12:22 Labs: Short CBC 01/20/22 Range/Units 12:22 WBC 4.9 (4.8-10.8) X10*3/uL Hgb 12.2 (12.0-16.0) g/dl Hct 36.9 L (37.0-47.0) % Plt Count 241 (160-400) X10*3/uL BMP 01/20/22 12:22 Sodium 130 L Potassium 4.6 Chloride 96 Carbon Dioxide 26 BUN 15 D Creatinine 0.93 Calcium 9.2 Liver Function 01/20/22 Range/Units 12:22 Total Bilirubin 0.9 (0.0-1.0) mg/dL Direct Bilirubin 0.4 (0.0-0.5) mg/dL AST 14 D (5-31) U/L ALT 10 (0-31) U/L Alkaline Phosphatase 99 (39-117) U/L Albumin 3.9 (3.5-5.0) g/dL Assessment and Plan (1) Dysphagia, pharyngoesophageal phase: Status: Acute (2) Esophageal stricture: Status: Acute Plan 76 YF with type 1 DM, CAD, CKD and dementia came to [facility] with her with worsening dysphagia over the past 2-3 week. She has been unable to swallow solids or liquids today. Her symptoms are suggestive of a food impaction. Pt has a known hx of esophageal stricture and Davidson's esophagus on EGD 13 yrs ago. RECOMMENDATIONS: 1. Keep NPO for now 2. Proceed with EGD with possible dilation today. Procedure and potential complications including bleeding, perforation, reaction to anesthetics and aspiration pneumonia were reviewed with the patient and her . Procedures Date of Service Date of Service: 01/20/22
--- NOTE | 2022-01-20 15:12 | PHA.MEDREC ---
Pharmacy Consult ? Medication Reconciliation Pharmacy has completed the medication reconciliation.
--- NOTE | 2022-01-20 15:21 | PC.NURSE ---
RN-RN reports given to SSS.
--- NOTE | 2022-01-20 16:16 | P.CONAN_ITS ---
[facility] Active Problems Active Problems: All Active Problems (Updated 01/20/22 @ 16:15 by Mandie Ross NP) Acute hyponatremia (Acute) Hypertension (Acute) Dysphagia, pharyngoesophageal phase (Acute) Esophageal stricture (Acute) DM type 1 (diabetes mellitus, type 1) (Acute) Past Medical History Medical History (Updated 01/20/22 @ 16:15 by Mandie Ross NP) CAD (coronary artery disease) CKD (chronic kidney disease), stage III COVID-19 Dementia DM type 1 (diabetes mellitus, type 1) Esophageal dilatation GERD (gastroesophageal reflux disease) Glaucoma HTN (hypertension) Hypercholesterolemia Hyperkalemia Hypothyroid Neuropathy Orthostatic hypotension POTS (postural orthostatic tachycardia syndrome) PPD positive QT prolongation Retinopathy Vitamin B12 deficiency Family History Family history of problems with anesthesia: No Surgical History History of Problems with Anesthesia: No Social History Social History Household Members: Spouse Housing: House Do you presently have visiting nurse or other home services: No (unable to asess) Unable to assess alcohol history related to: Unable to respond Patient Tobacco Use Status: Never used Tobacco Smoked in Last 30 Days: No Use of substances other than those prescribed or required for medical reasons: No Advance Directives: Yes Advance Directives on File: Yes Advance Directives Date on File: 10/14/21 service: No Current occupational status: retired Meds Allergies Allergy/AdvReac Type Severity Reaction Status Date / Time Sulfa (Sulfonamide Allergy Severe RASH/HIVES, Verified 10/14/21 16:39 Antibiotics) hives [SULFA (SULFONAMIDE ANTIBIOTICS)] insulin aspart Allergy Unknown HIVES Verified 10/14/21 16:39 [From NOVOLOG U-100 INSULIN ASPART] levofloxacin [From LEVAQUIN] AdvReac Intermediate BLOOD Verified 10/14/21 16:39 SUGAR DROPS milk [MILK] AdvReac Mild NAUSEA Verified 10/14/21 16:39 Active Medications: Current Medications Pharmacy Consult (Consult Rx Perform Med Rec) 1 each MISCELLANE ONCE PRN PRN Reason: Consult order Home Medications Medication Instructions Recorded Confirmed Last Taken Type Lactobacillus rhamnosus GG 10 1 cap PO BID 10/14/21 01/20/22 01/20/22 History billion cell capsule (Culturelle) aspirin 81 mg chewable tablet 81 mg PO DAILY 10/14/21 01/20/22 01/20/22 History cholecalciferol (vitamin D3) 125 125 mcg PO DAILY 10/14/21 01/20/22 01/20/22 History mcg (5,000 unit) tablet (Vitamin D3) cyanocobalamin (vitamin B-12) 500 500 mcg PO DAILY 10/14/21 01/20/22 01/20/22 History mcg tablet donepezil 10 mg tablet 10 mg PO DAILY 10/14/21 01/20/22 01/20/22 History insulin glargine 100 unit/mL (3 13 unit SUBCUT BEDTIME 10/14/21 01/20/22 01/19/22 History mL) subcutaneous pen (Lantus Solostar U-100 Insulin) insulin lispro 100 unit/mL 2 unit SUBCUT QPM 10/14/21 01/20/22 01/19/22 History subcutaneous cartridge (Humalog U-100 Insulin) insulin lispro 100 unit/mL 4 unit SUBCUT DAILY 10/14/21 01/20/22 01/20/22 History subcutaneous cartridge (Humalog U-100 Insulin) insulin lispro 100 unit/mL 6 unit SUBCUT DAILY@1200 10/14/21 01/20/22 01/19/22 History subcutaneous cartridge (Humalog U-100 Insulin) methenamine hippurate 1 gram tablet 1 g PO BID 10/14/21 01/20/22 01/20/22 History simvastatin 20 mg tablet 20 mg PO BEDTIME 10/14/21 01/20/22 01/19/22 History sodium chloride 1 gram tablet 1 tab PO DAILY 01/20/22 01/20/22 01/19/22 History Exam Exam Date and Time: January 20, 2022 161 Height,Weight and Vital Signs: Height 5 ft 6 in Weight 66.678 kg Last Vital Signs Temp 98.2 F 01/20/22 11:46 Pulse 88 01/20/22 14:40 Resp 18 01/20/22 14:40 BP 206/87 H 01/20/22 14:40 Pulse Ox 99 01/20/22 14:40 Pertinent Lab Results Pertinent Lab Results: Laboratory Tests 01/20/22 01/20/22 01/20/22 11:46 12:18 12:22 WBC 4.9 RBC 4.18 L Hgb 12.2 Hct 36.9 L MCV 88.3 MCH 29.2 MCHC 33.1 RDW 13.1 Plt Count 241 MPV 8.7 L Immature Gran % (Auto) 0.2 Neut % (Auto) 70.4 Lymph % (Auto) 13.1 L [place] % (Auto) 14.5 H Eos % (Auto) 1.4 Baso % (Auto) 0.4 Lymph # (Auto) 0.6 L [place] # (Auto) 0.7 Eos # (Auto) 0.1 Baso # (Auto) 0.0 Abs Immat Gran (auto) 0.01 Absolute Neuts (auto) 3.5 Absolute Nucleated RBC 0.000 Nucleated RBC % (auto) 0.0 PT INR Sodium Potassium Chloride Carbon Dioxide Anion Gap BUN Creatinine Estim Creat Clear Calc Estimated GFR POC Glucose 194 H Random Glucose Calcium Magnesium Total Bilirubin Direct Bilirubin AST ALT Alkaline Phosphatase Troponin I High Sens B-Natriuretic Peptide Total Protein Albumin COVID-19 (CRISTINO) Negative COVID-19 Clin Com See Note 01/20/22 01/20/22 01/20/22 12:22 12:22 12:22 WBC RBC Hgb Hct MCV MCH MCHC RDW Plt Count MPV Immature Gran % (Auto) Neut % (Auto) Lymph % (Auto) [place] % (Auto) Eos % (Auto) Baso % (Auto) Lymph # (Auto) [place] # (Auto) Eos # (Auto) Baso # (Auto) Abs Immat Gran (auto) Absolute Neuts (auto) Absolute Nucleated RBC Nucleated RBC % (auto) PT 12.7 INR 1.1 Sodium 130 L Potassium 4.6 Chloride 96 Carbon Dioxide 26 Anion Gap 13 BUN 15 D Creatinine 0.93 Estim Creat Clear Calc 47.3 Estimated GFR 58 POC Glucose Random Glucose 177 H Calcium 9.2 Magnesium 1.9 Total Bilirubin 0.9 Direct Bilirubin 0.4 AST 14 D ALT 10 Alkaline Phosphatase 99 Troponin I High Sens 5.3 B-Natriuretic Peptide 73 Total Protein 6.4 L Albumin 3.9 COVID-19 (CRISTINO) COVID-19 Clin Com Airway Mallampati Class: I TM Dist: >3cm Partial: Upper and Lower Loose/Missing/Broken Teeth: No Heart: rrr Lungs: cta Assessment and Plan Assessment Anesthesia Assessment: Anesthesia Plan Discussed and Chart Reviewed Final Anesthetic Review Family History of Problems with Anesthesia: No History of Problems with Anesthesia: No NPO: Yes ASA Class: III and Emergency Final Preanesthetic Review: No Changes in Pt Med Stat, Meds/Allgs Chart Reviewed, Consent Obtained/Reviewed and Anes Risks/Benef Reviewed Patient Risk: Intermediate Procedure Risk: Low Anesthetic Plan Anesthetic Plan: MAC: Disposition: Standard PACU
--- NOTE | 2022-01-20 16:29 | P.BOP_ITS ---
Brief Operative Note Date of Service: 01/20/22 Pre-op diagnosis: dysphagia, food impaction Post-op diagnosis: other (Esophageal stricture, hiatal hernia, suspected food impaction) Procedure: FLEXIBLE TRANSORAL UPPER GASTROINTESTINAL ENDOSCOPY WITH BIOPSIES AND ESOPHAGEAL BALLOON DILATION Consent: Indications for the procedure and potential complications of bleeding, perforation, reaction to medications and missed diagnosis were discussed with the patient and informed consent was obtained. Instrument: Olympus GIF H 190 mid size upper endoscope Monitoring: Vital signs and clinical assessment, continuous EKG monitoring, Pulse oximetry, Carbon Dioxide monitoring and blood pressure monitoring were done throughout the procedure. Procedure: The patient was placed in the left lateral decubitis position and pre-procedure medications were administered and a bite block was placed. The endoscope was inserted into the mouth and advanced under direct vision to the third part of duodenum. A careful inspection was made as the upper endoscope was withdrawn including a retroflexed examination of the proximal stomach; Findings and interventions are described below. Findings: Larynx: Normal Esophagus: Tight benign appearing stricture with surrounding ulceration at 32 cms with a few pieces of food proximal to the stricture. Unabe to pass a mid- size upper endoscope through the stricture. Balloon dilation was performed with a 10 and 11 mm CRE balloon 60 seconds at each level. Biopsies obtained from the stricture. The endoscope passed easily through the stricture post dilation. GE junction at 32 cms, hiatal hernia 32 to 36 cms. Stomach: Mild gastric erythema. Grade 2 flap valve on retroflexed examination of the cardia. Duodenum: Normal bulb and descending duodenum. Biopsies were obtained from the 3rd part of duodenum to follow up on celiac sprue (diagnosed on past EGD) Intervention: Biopsies and esophageal balloon dilation as noted above Impression and Post Procedure Diagnosis: Endoscopy Findings: ESOPHAGUS: Tight benign appearing stricture with surrounding ulceration at 32 cms with a few pieces of food proximal to the stricture. Unabe to pass a mid- size upper endoscope through the stricture. Balloon dilation was performed with a 10 and 11 mm CRE balloon 60 seconds at each level. Biopsies obtained from the stricture. The endoscope passed easily through the stricture post dilation. GE junction at 32 cms, hiatal hernia 32 to 36 cms. DUODENUM: Normal - biopsied to check for celiac sprue Plan: Await pathology results. Resume Omeprazole 10 mg twice a day for inflammatory esophageal stricture ( reports Omeprazole was discontinued due to concern for causing hyponatremia and pt was switched to Pepcid) Above findings were reviewed with the patient and her and GERD and Hi atal Hernia handouts were given in the discharge area Repeat EGD in 4 to 6 weeks Surgeon: Clarita Mendez MD Anesthesia: MAC (DR Terrazas) Was an Quality And Reliability Engineer used for this Procedure?: No Quality And Reliability Engineer: Chaparrita Rogers Estimated blood loss (mL): 0 Pathology: other ( A- Small bowel bx B- Esophageal stricture bx) Condition: stable Disposition: PACU
[2022-01-20 16:30] VITALS: BP 137/52; PULSE 79; RESP 16; TEMP 36.7; O2SAT 97
[2022-01-20 16:45] VITALS: BP 141/56; PULSE 78; RESP 17; TEMP 36.2; O2SAT 95
--- NOTE | 2022-01-20 16:52 | W.PM.OPN ---
Operative Note Operative Note Date of Service: 01/20/22 Narrative: Pre-op diagnosis: dysphagia, food impaction Post-op diagnosis:?other (Esophageal stricture, hiatal hernia, suspected food impaction) Procedure: FLEXIBLE TRANSORAL UPPER GASTROINTESTINAL ENDOSCOPY WITH BIOPSIES AND ESOPHAGEAL BALLOON DILATION Consent:?Indications for the procedure and potential complications of bleeding, perforation, reaction to medications and missed diagnosis were discussed with the patient and informed consent was obtained. Instrument:?Olympus GIF H 190 mid size upper endoscope Monitoring: Vital signs and clinical assessment, continuous EKG monitoring, Pulse oximetry, Carbon Dioxide monitoring and blood pressure monitoring were done throughout the procedure. Procedure:?The patient was placed in the left lateral decubitis position and pre-procedure medications were administered and a bite block was placed. The endoscope was inserted into the mouth and advanced under direct vision to the third part of duodenum. A careful inspection was made as the upper endoscope was withdrawn including a retroflexed examination of the proximal stomach; Findings and interventions are described below. Findings: Larynx:? Normal Esophagus: Tight benign appearing stricture with surrounding ulceration at 32 cms with a few pieces of food proximal to the stricture.? Unabe to pass a mid-size upper endoscope through the stricture.? Balloon dilation was performed with a 10 and 11 mm CRE balloon 60 seconds at each level. Biopsies obtained from the stricture. The endoscope passed easily through the stricture post dilation. GE junction at 32 cms, hiatal hernia 32 to 36 cms. Stomach: Mild gastric erythema. Grade 2 flap valve on retroflexed examination of the cardia. Duodenum: Normal bulb and descending duodenum. Biopsies were obtained from the 3rd part of duodenum to follow up on celiac sprue (diagnosed on past EGD) Intervention: Biopsies and esophageal balloon dilation as noted above Impression and Post Procedure Diagnosis: Endoscopy Findings: ESOPHAGUS: Tight benign appearing stricture with surrounding ulceration at 32 cms with a few pieces of food proximal to the stricture.? Unabe to pass a mid-size upper endoscope through the stricture.? Balloon dilation was performed with a 10 and 11 mm CRE balloon 60 seconds at each level. Biopsies obtained from the stricture. The endoscope passed easily through the stricture post dilation. GE junction at 32 cms, hiatal hernia 32 to 36 cms. DUODENUM: Normal - biopsied to check for celiac sprue Plan: Await pathology results. Resume Omeprazole 10 mg twice a day for inflammatory esophageal stricture ( reports Omeprazole was discontinued due to concern for causing hyponatremia and pt was switched to Pepcid) Above findings were reviewed with the patient and her and GERD and Hiatal Hernia handouts were given in the discharge area Repeat EGD in 4 to 6 weeks Surgeon: Clarita Mendez MD Anesthesia:?MAC (DR Terrazas) Was an Space And Missile Operations used for this Procedure?:?No Space And Missile Operations:?Chaparrita Rogers Pathology:?other ( A- Small bowel bx? B- Esophageal stricture bx) Condition:?stable Disposition:?PACU
[2022-01-20 16:58] VITALS: BP 120/63; PULSE 78; RESP 17; TEMP 36.7; O2SAT 98
--- NOTE | 2022-01-21 17:54 | HO.POSTANES ---
Post Anesthesia Evaluation Post Anesthesia Evaluation Anesthesia: Monitored Mental Status: Awake Pain Control: Satisfactory Nausea/Vomiting: None Hydration: Adequate Anesthesia-Related Issues: No Anes. Related Issues
== END 2022-01-20 15:31 | disposition other institution (70) ==
PROVIDERS: Internal Medicine Gastroenterology; Nurse Practitioner Family; Emergency Provider Emergency Medicine Emergency Medical Services; PCP Internal Medicine Rheumatology
PROC: (CPT 43249; principal; 2022-01-20 15:30)
DX: R13.14 Dysphagia, pharyngoesophageal phase (principal); K22.2 Esophageal obstruction; K22.10 Ulcer of esophagus without bleeding; K44.9 Diaphragmatic hernia without obstruction or gangrene; E87.1 Hypo-osmolality and hyponatremia; I12.9 Hypertensive chronic kidney disease with stage 1 through stage 4 chronic kidney disease, or unspecified chronic kidney disease; N18.30 Chronic kidney disease, stage 3 unspecified; E10.22 Type 1 diabetes mellitus with diabetic chronic kidney disease; F03.90 Unspecified dementia, unspecified severity, without behavioral disturbance, psychotic disturbance, mood disturbance, and anxiety; Z20.822 Contact with and (suspected) exposure to COVID-19
CPT/HCPCS: 43249; 43239; 71046; 80048; 80076; 82947; 83735; 83880; 84484; 85025; 85610; 87635; 88305; 88312; 93005; 99285; C1726; J0330; J3010

== ENCOUNTER 2022-01-28 10:54 | Emergency (ER) | payer OTHER, MEDICAID, SELFPAY ==
[2022-01-28] VITALS (7 sets, daily range): BP systolic 149–197; BP diastolic 54–94; PULSE 77–91; RESP 16–19; TEMP 36.2–36.7; O2SAT 97–100; BMI 27.8
--- NOTE | 2022-01-28 11:24 | ED_ITS ---
HPI - General Adult General Chief complaint: General Medical Stated complaint: difficulty swallowing Time Seen by Provider: 01/28/22 11:09 Source: patient and family (Spouse) Mode of arrival: ambulatory Limitations: no limitations History of Present Illness HPI narrative: 76-year-old female came in for evaluation of difficulty swallowing. Patient was unable to swallow her medication, patient declined eating hard foods this morning. Similar symptoms have been about 8 days ago patient had an emergent endoscopy which showed benign esophageal stricture that required balloon dilation of the esophagus, patient is waiting for 2nd procedure to be done by GI sometime in the next 2 weeks. Related Data Home Medications Medication Instructions Recorded Confirmed Lactobacillus rhamnosus GG 10 1 cap PO BID 10/14/21 01/20/22 billion cell capsule (Culturelle) aspirin 81 mg chewable tablet 81 mg PO DAILY 10/14/21 01/20/22 cholecalciferol (vitamin D3) 125 125 mcg PO DAILY 10/14/21 01/20/22 mcg (5,000 unit) tablet (Vitamin D3) cyanocobalamin (vitamin B-12) 500 500 mcg PO DAILY 10/14/21 01/20/22 mcg tablet donepezil 10 mg tablet 10 mg PO DAILY 10/14/21 01/20/22 insulin glargine 100 unit/mL (3 13 unit SUBCUT BEDTIME 10/14/21 01/20/22 mL) subcutaneous pen (Lantus Solostar U-100 Insulin) insulin lispro 100 unit/mL 2 unit SUBCUT QPM 10/14/21 01/20/22 subcutaneous cartridge (Humalog U-100 Insulin) insulin lispro 100 unit/mL 4 unit SUBCUT DAILY 10/14/21 01/20/22 subcutaneous cartridge (Humalog U-100 Insulin) insulin lispro 100 unit/mL 6 unit SUBCUT DAILY@1200 10/14/21 01/20/22 subcutaneous cartridge (Humalog U-100 Insulin) methenamine hippurate 1 gram tablet 1 g PO BID 10/14/21 01/20/22 simvastatin 20 mg tablet 20 mg PO BEDTIME 10/14/21 01/20/22 sodium chloride 1 gram tablet 1 tab PO DAILY 01/20/22 01/20/22 Previous Rx's Medication Instructions Recorded omeprazole magnesium 10 mg oral 10 mg PO BID 30 Days #30 ea 01/21/22 suspension,delayed release Allergies Allergy/AdvReac Type Severity Reaction Status Date / Time Sulfa (Sulfonamide Allergy Severe RASH/HIVES, Verified 10/14/21 16:39 Antibiotics) hives [SULFA (SULFONAMIDE ANTIBIOTICS)] insulin aspart Allergy Unknown HIVES Verified 10/14/21 16:39 [From NOVOLOG U-100 INSULIN ASPART] levofloxacin [From LEVAQUIN] AdvReac Intermediate BLOOD Verified 10/14/21 16:39 SUGAR DROPS milk [MILK] AdvReac Mild NAUSEA Verified 10/14/21 16:39 Review of Systems Review of Systems: All other systems are reviewed and are negative Constitutional: Reports as per HPI and Reports no additional constitutional complaints Eyes: Reports as per HPI and Reports no additional eye complaints Reports system reviewed and no additional complaints, except as documented Cardiovascular: Reports as per HPI and Reports no additional cardiovascular complaints Respiratory: Reports as per HPI and Reports no additional respiratory complaints Gastrointestinal: Reports as per HPI and Reports no additional gastrointestinal complaints Genitourinary: Reports no additional female genitourinary complaints Musculoskeletal: Reports no additional musculoskeletal complaints Skin/Breast: Reports system reviewed and no additional complaints, except as docu Psychiatric: Reports no additional psychiatric complaints Endocrine: Reports no additional endocrine complaints Hematologic/Lymphatic: Reports no additional hematologic/lymphatic complaints Allergic/Immunologic: Reports no additional allergic/immunologic complaints Reports system reviewed and no additional complaints, except as documented and Reports Abnormal speech present [facility] Past Medical History Medical History CAD (coronary artery disease) CKD (chronic kidney disease), stage III COVID-19 Dementia DM type 1 (diabetes mellitus, type 1) Esophageal dilatation GERD (gastroesophageal reflux disease) Glaucoma HTN (hypertension) Hypercholesterolemia Hyperkalemia Hypothyroid Neuropathy Orthostatic hypotension POTS (postural orthostatic tachycardia syndrome) PPD positive QT prolongation Retinopathy Vitamin B12 deficiency Social History Social History Household Members: Spouse Housing: House Do you presently have visiting nurse or other home services: No (unable to asess) Unable to assess alcohol history related to: Unable to respond Patient Tobacco Use Status: Never used Tobacco Advance Directives: Yes Advance Directives on File: Yes Advance Directives Date on File: 10/23/21 service: No Current occupational status: retired Physical Exam ED Vital Signs: Vital Signs - 24 hr 01/28/22 11:07 Temperature 98.0 F Pulse Rate 77 Respiratory Rate 18 Blood Pressure 197/85 H Pulse Oximetry 97 BMI result Body Mass Index 27.8 Vital signs have been reviewed as appeared to be correct. Blood pressure elevated. Heart rate normal. Respiration rate normal. Temperature normal. Oxygen saturation normal. Appearance: Alert. Oriented X3. No acute distress. Head: Normal external exam. Normocephalic. Atraumatic. No Luciano signs noted. No raccoon eyes noted Eyes: PERRLA. EOMI. Conjunctiva and sclera normal. Eyelids normal. ENT: TM's Normal. Pharynx normal. Uvula midline. Moist mucous membranes. No trismus noted. No drooling noted. No muffled voice noted. Neck: Normal inspection. Neck supple. FROM. No adenopathy. Thyroid Normal. No meningeal signs. No neck mass noted. CVS: Normal heart rate and rhythm. Heart sound normal. No murmurs noted. Pulses normal throughout. Respiratory: No respiratory distress. Painless inspiration. Breath sounds normal. No wheezes/rales/rhonchi noted. Chest nontender. No accessory muscle usage noted or decreased air movement noted. Abdomen: Soft and nontender. Bowel sounds normal in all 4 quadrants. No distention noted. No organomegaly noted. No visible injury noted. Back: No CVA tenderness. Full range of motion noted. Skin: Skin warm and dry. Normal skin color. Normal skin turgor. No rashes/lesions/lacerations noted. Extremities: No lower extremity edema. Extremities exhibit normal range of motion. Extremities nontender. Neuro: Oriented X 3. Cranial nerve exam: II-XII are grossly intact No motor deficit. No sensory deficit. Reflexes normal. Course Course Course Narrative: Assessment and plan. 76-year-old female presented with dysphagia to liquid and solid food, patient is known to have esophageal stricture unable to take her medication. The case discussed with Dr. Robert who will perform an emergency upper endoscopy. Discharge Plan Discharge Clinical Impression: Esophageal stricture, Dysphagia, pharyngoesophageal phase Patient Disposition: Admitted As Inpatient Additional Instructions: To be admitted to the GI suite for upper endoscopy. Prescriptions: No Action omeprazole magnesium 10 mg susp,delayed release for recon 10 mg PO BID 30 Days Qty: 30 3RF sodium chloride 1 gram tablet 1 tab PO DAILY 0RF donepezil 10 mg Tablet 10 mg PO DAILY 0RF aspirin 81 mg Tablet,Chewable 81 mg PO DAILY 0RF simvastatin 20 mg Tablet 20 mg PO BEDTIME 0RF Humalog U-100 Insulin 100 unit/mL Cartridge 4 unit SUBCUT DAILY 0RF Humalog U-100 Insulin 100 unit/mL Cartridge 6 unit SUBCUT DAILY@1200 0RF Humalog U-100 Insulin 100 unit/mL Cartridge 2 unit SUBCUT QPM 0RF Lantus Solostar U-100 Insulin 100 unit/mL (3 mL) Insulin Pen 13 unit SUBCUT BEDTIME 0RF methenamine hippurate 1 gram Tablet 1 g PO BID 0RF cyanocobalamin (vitamin B-12) 500 mcg Tablet 500 mcg PO DAILY 0RF cholecalciferol (vitamin D3) [Vitamin D3] 125 mcg (5,000 unit) Tablet 125 mcg PO DAILY 0RF Culturelle 10 billion cell Capsule 1 cap PO BID 0RF
[2022-01-28 11:37] LABS: Glucose, Whole Blood 122 mg/dL (60-115)
--- NOTE | 2022-01-28 11:37 | ECG_ITS ---
Test Reason : WEAKNESS Blood Pressure : / mmHG Vent. Rate : 076 BPM Atrial Rate : 076 BPM P-R Int : 140 ms QRS Dur : 096 ms QT Int : 432 ms P-R-T Axes : 058 083 073 degrees QTc Int : 486 ms Normal sinus rhythm Normal ECG When compared with ECG of 20-JAN-2022 12:09, No significant change was found Referred By: Joe Kathleen Electronically Signed By:CHELLY VEGAS MD
[2022-01-28 11:46] LABS: MANUAL DIFF FLAG NO
[2022-01-28 11:48] LABS: Basophils Percent Auto 0.8 % (0-2); Eosinophils Absolute Auto 0.1 X10*3/uL (0.0-0.4); Eosinophils Percent Auto 1.9 % (0-4); Hematocrit 37.4 % (37.0-47.0); Hemoglobin 12.3 g/dl (12.0-16.0); Imm Gran Abs Auto 0.01 X10*3/uL (0.00-0.03); Imm Gran Pct Auto 0.2 % (0.0-0.4); Lymphocytes Absolute Auto 1.1 X10*3/uL (1.2-4.9); Lymphocytes Percent Auto 21.6 % (20-40); Mean Corpuscular HGB Conc 32.9 g/dl (31.0-35.0); Mean Corpuscular Hemoglobin 29.2 pg (27.0-33.0); Mean Corpuscular Volume 88.8 fL (80.0-98.0); Mean Platelet Volume 8.7 fL (9.4-12.3); Monocytes Absolute Auto 0.6 X10*3/uL (0.1-1.2); Monocytes Percent Auto 11.7 % (2-11); Neutrophils Absolute Auto 3.1 x10*3/uL (2.0-8.3); Neutrophils Percent Auto 63.8 % (45-73); Platelet Count 327 X10*3/uL (160-400); Red Blood Count 4.21 X10*6/uL (4.20-5.50); Red Cell Distribution Width 12.8 % (11.0-16.0); White Blood Count 4.9 X10*3/uL (4.8-10.8)
[2022-01-28 12:44] LABS: Prothrombin Time 11.9 SEC (9.9-13.0)
[2022-01-28 12:45] LABS: Glucose, Whole Blood 113 mg/dL (60-115)
[2022-01-28 12:47] LABS: Partial Thromboplastin Time 39.2 SEC (24.1-38.0)
[2022-01-28 12:53] LABS: Alanine Aminotransferase 14 U/L (0-31); Albumin Level 3.9 g/dL (3.5-5.0); Alkaline Phosphatase 95 U/L (39-117); Anion Gap 12 (12-20); Aspartate Amino Transferase 13 U/L (5-31); Bilirubin Total 0.6 mg/dL (0.0-1.0); Blood Urea Nitrogen 13 mg/dL (9-16); Calcium 9.4 mg/dL (8.4-10.2); Carbon Dioxide 28 mmol/L (22-29); Chloride 97 mmol/L (96-108); Estimated Glomerular Filt Rate > 60; Glucose Fasting 123 mg/dL (60-99); Potassium 4.5 mmol/L (3.3-5.1); Sodium 132 mmol/L (135-145); Total Protein 6.5 g/dL (6.5-8.0)
--- NOTE | 2022-01-28 12:56 | MHC.SHP ---
Pre-Procedural Eval Section A Date of Service: 01/28/22 The patient is an INPATIENT: No The History & Physical has been completed within 30 days and I have reviewed it.: Yes Section B Chief Complaint: difficulty swallowing Allergies: Allergies Allergy/AdvReac Type Severity Reaction Status Date / Time Sulfa (Sulfonamide Allergy Severe RASH/HIVES, Verified 10/14/21 16:39 Antibiotics) hives [SULFA (SULFONAMIDE ANTIBIOTICS)] insulin aspart Allergy Unknown HIVES Verified 10/14/21 16:39 [From NOVOLOG U-100 INSULIN ASPART] levofloxacin [From LEVAQUIN] AdvReac Intermediate BLOOD Verified 10/14/21 16:39 SUGAR DROPS milk [MILK] AdvReac Mild NAUSEA Verified 10/14/21 16:39 Plan I have reviewed the history and physical and performed a pertinent physical examination on my patient. No changes have occurred unless specified.
--- NOTE | 2022-01-28 12:57 | P.EN_ITS ---
Event Note Date of Service: 01/28/22 Event Note: GI Consult-Full note dictated. Hx from patient, , and EMR Imp: 76 yo female with hx of an esophageal stricture and esophageal obstruction, as well as celiac disease, a hiatal hernia, and Davidson's esophagus. She had an EGD with dilation in 2008 and was doing well on omeprazole until she was switched to a H2-maranda earlier this year due to issues with hyponatremia. She had to have an emergent EGD with removal of food and with dilation with 10-11mm balloons on 01/27/[address] Mendez. She was started on omeprazole at that time and was scheduled for a F/U EGD/Dilation for February. However, she now presents with recurrent dysphagia and inability to swallow any liquids. Her says she has been eating food over the last few days, but has been very careful and just eating things like eggs and toast soaked in a beverage. Duodenal biopsies last week were normal despite her not being on a gluten-free diet. Biopsies from EGJ were unremarkable except for inflammation. Rec: EGD today to relieve obstruction and with probable further dilation if p ossible. Full consent has been obtained from her and her , including risks of bleeding and perforation. The patient and her are comfortable with this plan. Thanks
[2022-01-28 12:58] LABS: COVID-19 Test Negative (Negative); IDNOW Serial# 9DB6401D
--- NOTE | 2022-01-28 13:05 | P.CONAN_ITS ---
[facility] Active Problems Active Problems: All Active Problems (Updated 01/28/22 @ 11:39 by Joe Kathleen MD) Erosive esophagitis (Acute) Dysphagia, pharyngoesophageal phase (Acute) Esophageal stricture (Acute) DM type 1 (diabetes mellitus, type 1) (Acute) Past Medical History Medical History CAD (coronary artery disease) CKD (chronic kidney disease), stage III COVID-19 Dementia DM type 1 (diabetes mellitus, type 1) Esophageal dilatation GERD (gastroesophageal reflux disease) Glaucoma HTN (hypertension) Hypercholesterolemia Hyperkalemia Hypothyroid Neuropathy Orthostatic hypotension POTS (postural orthostatic tachycardia syndrome) PPD positive QT prolongation Retinopathy Vitamin B12 deficiency Family History Family history of problems with anesthesia: No Surgical History History of Problems with Anesthesia: No Social History Social History Household Members: Spouse Housing: House Do you presently have visiting nurse or other home services: No (unable to asess) Unable to assess alcohol history related to: Unable to respond Patient Tobacco Use Status: Never used Tobacco Advance Directives: Yes Advance Directives on File: Yes Advance Directives Date on File: 10/23/21 service: No Current occupational status: retired Meds Allergies Allergy/AdvReac Type Severity Reaction Status Date / Time Sulfa (Sulfonamide Allergy Severe RASH/HIVES, Verified 10/14/21 16:39 Antibiotics) hives [SULFA (SULFONAMIDE ANTIBIOTICS)] insulin aspart Allergy Unknown HIVES Verified 10/14/21 16:39 [From NOVOLOG U-100 INSULIN ASPART] levofloxacin [From LEVAQUIN] AdvReac Intermediate BLOOD Verified 10/14/21 16:39 SUGAR DROPS milk [MILK] AdvReac Mild NAUSEA Verified 10/14/21 16:39 Home Medications Medication Instructions Recorded Confirmed Last Taken Type Lactobacillus rhamnosus GG 10 1 cap PO BID 10/14/21 01/20/22 01/20/22 History billion cell capsule (Culturelle) aspirin 81 mg chewable tablet 81 mg PO DAILY 10/14/21 01/20/22 01/20/22 History cholecalciferol (vitamin D3) 125 125 mcg PO DAILY 10/14/21 01/20/22 01/20/22 History mcg (5,000 unit) tablet (Vitamin D3) cyanocobalamin (vitamin B-12) 500 500 mcg PO DAILY 10/14/21 01/20/22 01/20/22 History mcg tablet donepezil 10 mg tablet 10 mg PO DAILY 10/14/21 01/20/22 01/20/22 History insulin glargine 100 unit/mL (3 13 unit SUBCUT BEDTIME 10/14/21 01/20/22 01/19/22 History mL) subcutaneous pen (Lantus Solostar U-100 Insulin) insulin lispro 100 unit/mL 2 unit SUBCUT QPM 10/14/21 01/20/22 01/19/22 History subcutaneous cartridge (Humalog U-100 Insulin) insulin lispro 100 unit/mL 4 unit SUBCUT DAILY 10/14/21 01/20/22 01/20/22 History subcutaneous cartridge (Humalog U-100 Insulin) insulin lispro 100 unit/mL 6 unit SUBCUT DAILY@1200 10/14/21 01/20/22 01/19/22 History subcutaneous cartridge (Humalog U-100 Insulin) methenamine hippurate 1 gram tablet 1 g PO BID 10/14/21 01/20/22 01/20/22 History simvastatin 20 mg tablet 20 mg PO BEDTIME 10/14/21 01/20/22 01/19/22 History sodium chloride 1 gram tablet 1 tab PO DAILY 01/20/22 01/20/22 01/19/22 History Exam Exam Date and Time: January 28, 2022 1305 Height,Weight and Vital Signs: Height 5 ft 1 in Weight 66.905 kg Last Vital Signs Temp 97.8 F 01/28/22 12:54 Pulse 78 01/28/22 12:54 Resp 19 01/28/22 12:54 BP 178/94 H 01/28/22 12:54 Pulse Ox 98 01/28/22 12:54 Pertinent Lab Results Pertinent Lab Results: Laboratory Tests 01/28/22 01/28/22 01/28/22 11:22 11:41 12:31 WBC 4.9 RBC 4.21 Hgb 12.3 Hct 37.4 MCV 88.8 MCH 29.2 MCHC 32.9 RDW 12.8 Plt Count 327 D MPV 8.7 L Immature Gran % (Auto) 0.2 Neut % (Auto) 63.8 Lymph % (Auto) 21.6 [place] % (Auto) 11.7 H Eos % (Auto) 1.9 Baso % (Auto) 0.8 Lymph # (Auto) 1.1 L [place] # (Auto) 0.6 Eos # (Auto) 0.1 Baso # (Auto) 0.0 Abs Immat Gran (auto) 0.01 Absolute Neuts (auto) 3.1 Absolute Nucleated RBC 0.000 Nucleated RBC % (auto) 0.0 PT INR APTT Sodium 132 L Potassium 4.5 Chloride 97 Carbon Dioxide 28 Anion Gap 12 BUN 13 Creatinine 0.84 Estim Creat Clear Calc 49.0 Estimated GFR > 60 POC Glucose 122 H Fasting Glucose 123 H Calcium 9.4 Total Bilirubin 0.6 AST 13 ALT 14 Alkaline Phosphatase 95 Total Protein 6.5 Albumin 3.9 COVID-19 (CRISTINO) COVID-19 [employer] 01/28/22 01/28/22 01/28/22 12:31 12:31 12:36 WBC RBC Hgb Hct MCV MCH MCHC RDW Plt Count MPV Immature Gran % (Auto) Neut % (Auto) Lymph % (Auto) [place] % (Auto) Eos % (Auto) Baso % (Auto) Lymph # (Auto) [place] # (Auto) Eos # (Auto) Baso # (Auto) Abs Immat Gran (auto) Absolute Neuts (auto) Absolute Nucleated RBC Nucleated RBC % (auto) PT 11.9 INR 1.0 APTT 39.2 H Sodium Potassium Chloride Carbon Dioxide Anion Gap BUN Creatinine Estim Creat Clear Calc Estimated GFR POC Glucose 113 Fasting Glucose Calcium Total Bilirubin AST ALT Alkaline Phosphatase Total Protein Albumin COVID-19 (CRISTINO) Negative COVID-19 [employer] See Note Airway Mallampati Class: II TM Dist: >3cm Assessment and Plan Assessment Anesthesia Assessment: Anesthesia Plan Discussed and Chart Reviewed Final Anesthetic Review Family History of Problems with Anesthesia: No History of Problems with Anesthesia: No NPO: Yes ASA Class: II and Emergency Final Preanesthetic Review: No Changes in Pt Med Stat, Meds/Allgs Chart Reviewed, Consent Obtained/Reviewed and Anes Risks/Benef Reviewed Patient Risk: Low Procedure Risk: Low Anesthetic Plan Anesthetic Plan: GA Disposition: Standard PACU
[2022-01-28 13:10] LABS: Appearance Urine CLEAR; Color Urine YELLOW; Glucose Urine UA 100 MG/DL (NEG); Leukocyte Esterase Urine NEG (NEG); Nitrite Urine NEG (NEG); PH 6.5 (5.0-8.0); Specific Gravity - Urine 1.015 (1.005-1.025); UACC Culture Trigger NO; Urine Blood TRACE (NEG); Urine Ketones NEG (NEG); Urine Protein 2+ MG/DL (NEG-TRACE)
[2022-01-28 13:20] LABS: Bacteria Urine TRACE /LPF; Squamous Epithelial Cell Urine 2+ /LPF; WBC Urine 0 /HPF (0-4)
--- NOTE | 2022-01-28 13:43 | CONS_ITS ---
DATE OF SERVICE: 01/28/2022 REASON FOR CONSULTATION: Esophageal obstruction, dysphagia, and history of esophageal stricture. HISTORY OF PRESENT ILLNESS: This has been obtained from the patient, her , and the medical record. The patient is a 76-year-old female with a known history of an esophageal stricture. She underwent emergent upper endoscopy just [address] Mendez when she presented to the ER with inability to swallow liquids. The upper endoscopy on January 20 revealed a tight benign-appearing stricture with some ulceration at 32 cm with some food above that. The scope could not be passed and the stricture was dilated with a 10 and 11 mm balloon. This then allowed the scope to pass easily into the stomach. A hiatal hernia was noted. Biopsies from the duodenum were normal despite the previous finding of celiac disease and her staying on a regular diet. Biopsies from the gastroesophageal junction were negative for malignancy and showed only some inflammation. She did have a previous history of an esophageal stricture dilated back in 2008. At that time, she was started on omeprazole and had been doing very well on that for many years but was apparently switched from that to a H2-maranda early this year due to hyponatremia and a concern that the PPI was causing that. As such, she was off her PPI and then developed a recurrent problem of dysphagia just last week. Since the procedure last week, she has been trying to eat carefully, but according to the has been having some eggs and toast soaked in some beverage. She began having trouble swallowing last night and today was unable to swallow liquids. She came to the ER and was unable to tolerate any liquids. She denies any chest pain or shortness of breath. MEDICATIONS: At home include omeprazole, insulin, simvastatin. PAST MEDICAL HISTORY: Esophageal stricture with associated hiatal hernia as above. Biopsies just last week were negative for malignancy at the gastroesophageal junction and negative celiac disease. She does have diabetes mellitus. Hyperlipidemia. There is no reported history of any surgeries other than some superficial skin cancers. She apparently has an underlying history of some dementia and renal insufficiency. Glaucoma. Neuropathy. Orthostatic hypotension. Previous duodenal biopsies in 2008 had been consistent with celiac disease. SOCIAL HISTORY: She is . She does not smoke, nor use any alcohol. FAMILY HISTORY: Noncontributory. REVIEW OF SYSTEMS: CONSTITUTIONAL: Other than her swallowing issues, she had been feeling well with good appetite. CARDIAC: No chest pain. PULMONARY: No cough, no hemoptysis. GI: As above. PHYSICAL EXAMINATION: GENERAL: The patient is a pleasant, alert, comfortable-appearing female. SKIN: Warm and dry. There is no crepitus in her neck nor chest wall. There is no lymphadenopathy. Moist mucous membranes. CARDIAC: Normal S1, S2. CHEST: Clear. ABDOMEN: Soft, nondistended, nontender. IMPRESSION: Given the patient's current history, it appears that she has developed recurrent esophageal obstruction from food above the known stricture. As such, she will undergo repeat upper endoscopy today to relieve the obstruction and then most likely perform further dilation if possible. Full consent has been obtained from the patient and her for this, including risks of bleeding and perforation. This will be done with monitored anesthesia care. The patient and her were comfortable with this plan. Thank for this consultation. MD YARITZA Adhikari/FLORESITA / [phone] MTDAnnmarie
--- NOTE | 2022-01-28 13:48 | P.BOP_ITS ---
Brief Operative Note Date of Service: 01/28/22 Pre-op diagnosis: Dysphagia Post-op diagnosis: other (Erosive esophagitis, Hiatal hernia) Procedure: EGD with removal of esophageal obstruction Surgeon: Som Robert Anesthesia: GETA Was an Belting And Webbing Inspector used for this Procedure?: No Estimated blood loss (mL): 0 Pathology: none sent Condition: stable Disposition: PACU
--- NOTE | 2022-01-28 13:49 | PM.EVENT ---
Event Note Date of Service: 01/28/22 Event Note: EGD-Full note dictated Findings: 1. Small amount of food in the distal esophagus pushed easily into the stomach. 2. Erosive esophagitis with ulceration at the EG Junction at 32cm. No mass nor definitive stricture. Scope easily passed this into the stomach. 3. Moderate-sized Hiatal hernia with diaphragmatic indentation seen at approx. 38cm 4. I did not perform balloon dilation due to the endoscopic findings with significant ulceration and friability at the EG Junction. Rec: Full liquid diet, omeprazole 40mg QD, and repeat upper endo with possible dilation in 2-4 weeks. D/W in detail re: diet and medication
--- NOTE | 2022-01-28 14:32 | PC.NURSE ---
IV REMOVED TOLERATED WELL
--- NOTE | 2022-01-29 01:20 | OP_ITS ---
SURGEON: Som Robert MD INDICATIONS: The patient presents for evaluation of dysphagia and esophageal obstruction. Full consent obtained from her and her for this, including risks of bleeding and perforation. PREOPERATIVE DIAGNOSIS: POSTOPERATIVE DIAGNOSIS: PROCEDURE PERFORMED: Esophagogastroduodenoscopy with removal of esophageal obstruction. ESTIMATED BLOOD LOSS: COMPLICATIONS: ANESTHESIA: Medications used, general anesthesia. ASSISTANTS: SPECIMENS: PREOPERATIVE DIAGNOSES: Esophageal obstruction and dysphagia. POSTOPERATIVE DIAGNOSES: Esophageal obstruction and dysphagia, erosive esophagitis, hiatal hernia. DESCRIPTION OF PROCEDURE: The patient was kept in the supine position. The Olympus video gastroscope was passed in the posterior oropharynx and upper esophagus under direct vision. The scope was passed slowly to the distal esophagus. There was a small amount of food in the distal esophagus, which was easily pushed into the stomach. The gastroesophageal junction appeared at 32 cm. This was notable for ulceration and friability. There was no mass. There was no definitive stricture and the scope easily entered the hiatal hernia. The hiatal hernia mucosa appeared normal with the diaphragmatic indentation seen at approximately 38 cm. The scope was advanced to the pylorus and the duodenum was cannulated to the descending portion. The duodenum including the bulb appeared normal without mass or ulceration. There was some old food in the duodenum as well. The scope was withdrawn back to the stomach. The gastric antrum and body appeared normal with good peristalsis. The scope was retroflexed visualizing the proximal stomach carefully, which appeared normal, without any sign of mass or ulceration. The scope was straightened and withdrawn back to the esophagus. Given the significant ulceration and friability at the gastroesophageal junction, and no definitive stricture noted today, I did not dilate this any further. The esophageal mucosa proximal to this appeared normal. The scope was withdrawn from the patient. She tolerated the procedure well and was returned to recovery area in stable condition. IMPRESSION: 1. Erosive esophagitis. 2. Hiatal hernia. PLAN: The patient will continue omeprazole, but I shall give her a prescription to use 40 mg daily. She should start this as soon as possible. She will need to stay on a full liquid diet and avoid all sorts of foods such as meat and bread. I would recommend a repeat upper endoscopy within the next 2-4 weeks to reassess this and then perform further dilation as needed. She should not use any NSAIDs long-term. She should stay off her low-dose aspirin for at least a week. This has all been discussed with her in detail. MD YARITZA Adhikari/FLORESITA / [phone]
--- NOTE | 2022-01-29 14:08 | HO.POSTANES ---
Post Anesthesia Evaluation Post Anesthesia Evaluation Anesthesia: General Endotracheal-GETA Mental Status: Awake Pain Control: Satisfactory Nausea/Vomiting: None Hydration: Adequate Anesthesia-Related Issues: No Anes. Related Issues
== END 2022-01-28 14:40 | disposition still patient (30) ==
PROVIDERS: Internal Medicine; Emergency Provider Emergency Medicine; PCP Internal Medicine Rheumatology
PROC: (CPT 43235; principal; 2022-01-28 13:00)
DX: K22.2 Esophageal obstruction (principal); R13.14 Dysphagia, pharyngoesophageal phase; I12.9 Hypertensive chronic kidney disease with stage 1 through stage 4 chronic kidney disease, or unspecified chronic kidney disease; E10.22 Type 1 diabetes mellitus with diabetic chronic kidney disease; N18.30 Chronic kidney disease, stage 3 unspecified; I25.10 Atherosclerotic heart disease of native coronary artery without angina pectoris; Z20.822 Contact with and (suspected) exposure to COVID-19
CPT/HCPCS: 43235; 36415; 80053; 81001; 82947; 85025; 85610; 85730; 87635; 93005; 99284; 99285; J2250; J2405

== ENCOUNTER 2022-02-20 06:30 | Day surgery (SDC) | payer OTHER, MEDICAID, SELFPAY ==
--- NOTE | 2022-02-19 12:25 | HO.ANESPROP2 ---
Documented by User: Diandra Galindo NP 02/19/22 12:33 HPI - Anesthesia Eval Consult details Narrative: 76yo F for Upper Endoscopy s/p EGD with balloon dilation 01/29/22 with GA-ETT 7 (also 01/20/22 with MAC) both EGD's were through ER and D/C home 10/2021 [facility] [place] admit with severe Hyponatremia. Last Na low @ 132. Repeat DOS. PMFSH Active Problems Active Problems: All Active Problems (Updated 01/28/22 @ 11:39 by Joe Kathleen MD) Erosive esophagitis (Acute) Dysphagia, pharyngoesophageal phase (Acute) Esophageal stricture (Acute) DM type 1 (diabetes mellitus, type 1) (Acute) Past Medical History Medical History CAD (coronary artery disease) CKD (chronic kidney disease), stage III COVID-19 Dementia DM type 1 (diabetes mellitus, type 1) Esophageal dilatation GERD (gastroesophageal reflux disease) Glaucoma HTN (hypertension) Hypercholesterolemia Hyperkalemia Hypothyroid Neuropathy Orthostatic hypotension POTS (postural orthostatic tachycardia syndrome) PPD positive QT prolongation Retinopathy Vitamin B12 deficiency Family History Family history of problems with anesthesia: No Surgical History History of Problems with Anesthesia: No Social History Social History Household Members: Spouse Housing: House Do you presently have visiting nurse or other home services: No (unable to asess) Unable to assess alcohol history related to: Unable to respond Patient Tobacco Use Status: Never used Tobacco Advance Directives: No Advance Directives Information Provided: Yes Advance Directives Date on File: 10/23/21 service: No Current occupational status: retired Meds Allergies Allergy/AdvReac Type Severity Reaction Status Date / Time Sulfa (Sulfonamide Allergy Severe RASH/HIVES, Verified 02/14/22 14:30 Antibiotics) hives [SULFA (SULFONAMIDE ANTIBIOTICS)] insulin aspart Allergy Unknown HIVES Verified 02/14/22 14:30 [From NOVOLOG U-100 INSULIN ASPART] levofloxacin [From LEVAQUIN] AdvReac Intermediate BLOOD Verified 02/14/22 14:30 SUGAR DROPS milk [MILK] AdvReac Mild NAUSEA Verified 02/14/22 14:30 Home Medications Medication Instructions Recorded Confirmed Last Taken Type Lactobacillus rhamnosus GG 10 1 cap PO BID 10/14/21 02/14/22 01/20/22 History billion cell capsule (Culturelle) aspirin 81 mg chewable tablet 81 mg PO DAILY 10/14/21 02/14/22 01/20/22 History cholecalciferol (vitamin D3) 125 125 mcg PO DAILY 10/14/21 02/14/22 01/20/22 History mcg (5,000 unit) tablet (Vitamin D3) cyanocobalamin (vitamin B-12) 500 500 mcg PO DAILY 10/14/21 02/14/22 01/20/22 History mcg tablet donepezil 10 mg tablet 10 mg PO DAILY 10/14/21 02/14/22 01/20/22 History insulin glargine 100 unit/mL (3 13 unit SUBCUT BEDTIME 10/14/21 02/14/22 01/19/22 History mL) subcutaneous pen (Lantus Solostar U-100 Insulin) insulin lispro 100 unit/mL 2 unit SUBCUT QPM 10/14/21 02/14/22 01/19/22 History subcutaneous cartridge (Humalog U-100 Insulin) insulin lispro 100 unit/mL 4 unit SUBCUT DAILY 10/14/21 02/14/22 01/20/22 History subcutaneous cartridge (Humalog U-100 Insulin) insulin lispro 100 unit/mL 6 unit SUBCUT DAILY@1200 10/14/21 02/14/22 01/19/22 History subcutaneous cartridge (Humalog U-100 Insulin) methenamine hippurate 1 gram tablet 1 g PO BID 10/14/21 02/14/22 01/20/22 History simvastatin 20 mg tablet 20 mg PO BEDTIME 10/14/21 02/14/22 01/19/22 History sodium chloride 1 gram tablet 1 tab PO DAILY 01/20/22 02/14/22 01/19/22 History Exam Exam Date and Time: February 19, 2022 1225 Pertinent Lab Results Pertinent Lab Results: Laboratory Tests 01/28/22 01/28/22 11:41 12:31 WBC 4.9 Hgb 12.3 Hct 37.4 Plt Count 327 D Sodium 132 L Potassium 4.5 Chloride 97 Carbon Dioxide 28 BUN 13 Creatinine 0.84 Narrative Narrative: EKG 01/2022 Vent. Rate : 076 BPM ? ? Atrial Rate : 076 BPM ?? P-R Int : 140 ms? QRS Dur : 096 ms ? ? QT Int : 432 ms ? ? ? P-R-T Axes : 058 083 073 degrees ?? QTc Int : 486 ms ? Normal sinus rhythm Normal ECG When compared with ECG of 20-JAN-2022 12:09, No significant change was found Assessment and Plan Assessment Anesthesia Assessment: Chart Reviewed Final Anesthetic Review Family History of Problems with Anesthesia: No History of Problems with Anesthesia: No Documented by User: Sriram Hou MD 02/20/22 07:17 PMFSH Past Medical History Medical History CAD (coronary artery disease) CKD (chronic kidney disease), stage III COVID-19 Dementia DM type 1 (diabetes mellitus, type 1) Esophageal dilatation GERD (gastroesophageal reflux disease) Glaucoma HTN (hypertension) Hypercholesterolemia Hyperkalemia Hypothyroid Neuropathy Orthostatic hypotension POTS (postural orthostatic tachycardia syndrome) PPD positive QT prolongation Retinopathy Vitamin B12 deficiency Social History Social History Household Members: Spouse Housing: House Do you presently have visiting nurse or other home services: No (unable to asess) Unable to assess alcohol history related to: Unable to respond Patient Tobacco Use Status: Never used Tobacco Advance Directives: No Advance Directives Information Provided: Yes Advance Directives Date on File: 10/23/21 service: No Current occupational status: retired Meds Allergies Allergy/AdvReac Type Severity Reaction Status Date / Time Sulfa (Sulfonamide Allergy Severe RASH/HIVES, Verified 02/14/22 14:30 Antibiotics) hives [SULFA (SULFONAMIDE ANTIBIOTICS)] insulin aspart Allergy Unknown HIVES Verified 02/14/22 14:30 [From NOVOLOG U-100 INSULIN ASPART] levofloxacin [From LEVAQUIN] AdvReac Intermediate BLOOD Verified 02/14/22 14:30 SUGAR DROPS milk [MILK] AdvReac Mild NAUSEA Verified 02/14/22 14:30 Home Medications Medication Instructions Recorded Confirmed Last Taken Type Lactobacillus rhamnosus GG 10 1 cap PO BID 10/14/21 02/14/22 01/20/22 History billion cell capsule (Culturelle) aspirin 81 mg chewable tablet 81 mg PO DAILY 10/14/21 02/14/22 01/20/22 History cholecalciferol (vitamin D3) 125 125 mcg PO DAILY 10/14/21 02/14/22 01/20/22 History mcg (5,000 unit) tablet (Vitamin D3) cyanocobalamin (vitamin B-12) 500 500 mcg PO DAILY 10/14/21 02/14/22 01/20/22 History mcg tablet donepezil 10 mg tablet 10 mg PO DAILY 10/14/21 02/14/22 01/20/22 History insulin glargine 100 unit/mL (3 13 unit SUBCUT BEDTIME 10/14/21 02/14/22 01/19/22 History mL) subcutaneous pen (Lantus Solostar U-100 Insulin) insulin lispro 100 unit/mL 2 unit SUBCUT QPM 10/14/21 02/14/22 01/19/22 History subcutaneous cartridge (Humalog U-100 Insulin) insulin lispro 100 unit/mL 4 unit SUBCUT DAILY 10/14/21 02/14/22 01/20/22 History subcutaneous cartridge (Humalog U-100 Insulin) insulin lispro 100 unit/mL 6 unit SUBCUT DAILY@1200 10/14/21 02/14/22 01/19/22 History subcutaneous cartridge (Humalog U-100 Insulin) methenamine hippurate 1 gram tablet 1 g PO BID 10/14/21 02/14/22 01/20/22 History simvastatin 20 mg tablet 20 mg PO BEDTIME 10/14/21 02/14/22 01/19/22 History sodium chloride 1 gram tablet 1 tab PO DAILY 01/20/22 02/14/22 01/19/22 History Exam Airway Mallampati Class: II TM Dist: >3cm Neck ROM: Full Partial: Upper and Lower Loose/Missing/Broken Teeth: Yes Heart: [id number] Lungs: cta b/l Assessment and Plan Assessment Anesthesia Assessment: Anesthesia Plan Discussed Final Anesthetic Review NPO: Yes ASA Class: III Final Preanesthetic Review: No Changes in Pt Med Stat, Meds/Allgs Chart Reviewed, Consent Obtained/Reviewed and Anes Risks/Benef Reviewed Patient Risk: Intermediate Procedure Risk: Intermediate Assessment/Block/Sedation in SS: Assess/Block/Sedation-SS Anesthetic Plan Anesthetic Plan: MAC: and Agree w/ Assess. and Plan Disposition: Standard PACU
[2022-02-20 06:54] LABS: Glucose, Whole Blood 173 mg/dL (60-115)
[2022-02-20 06:59] VITALS: BP 161/74; PULSE 84; RESP 18; TEMP 36.6; O2SAT 99; BMI 27.4
[2022-02-20 07:15] LABS: Anion Gap 12 (12-20); Carbon Dioxide 28 mmol/L (22-29); Chloride 102 mmol/L (96-108); Potassium 5.7 mmol/L (3.3-5.1); Sodium 136 mmol/L (135-145)
--- NOTE | 2022-02-20 07:29 | P.CONAN_ITS ---
[facility] Active Problems Active Problems: qAll Active Problems (Updated 01/28/22 @ 11:39 by Joe Kathleen MD) Erosive esophagitis (Acute) Dysphagia, pharyngoesophageal phase (Acute) Esophageal stricture (Acute) DM type 1 (diabetes mellitus, type 1) (Acute) Past Medical History Medical History CAD (coronary artery disease) CKD (chronic kidney disease), stage III COVID-19 Dementia DM type 1 (diabetes mellitus, type 1) Esophageal dilatation GERD (gastroesophageal reflux disease) Glaucoma HTN (hypertension) Hypercholesterolemia Hyperkalemia Hypothyroid Neuropathy Orthostatic hypotension POTS (postural orthostatic tachycardia syndrome) PPD positive QT prolongation Retinopathy Vitamin B12 deficiency Family History Family history of problems with anesthesia: No Surgical History History of Problems with Anesthesia: No Social History Social History Household Members: Spouse Housing: House Do you presently have visiting nurse or other home services: No (unable to asess) Unable to assess alcohol history related to: Unable to respond Patient Tobacco Use Status: Never used Tobacco Advance Directives: No Advance Directives Information Provided: Yes Advance Directives Date on File: 10/23/21 service: No Current occupational status: retired Meds Allergies Allergy/AdvReac Type Severity Reaction Status Date / Time Sulfa (Sulfonamide Allergy Severe RASH/HIVES, Verified 02/14/22 14:30 Antibiotics) hives [SULFA (SULFONAMIDE ANTIBIOTICS)] insulin aspart Allergy Unknown HIVES Verified 02/14/22 14:30 [From NOVOLOG U-100 INSULIN ASPART] levofloxacin [From LEVAQUIN] AdvReac Intermediate BLOOD Verified 02/14/22 14:30 SUGAR DROPS milk [MILK] AdvReac Mild NAUSEA Verified 02/14/22 14:30 Active Medications: Current Medications Acetaminophen (Acetaminophen 325 Mg Tablet) 650 mg PO ONCE PRN PRN Reason: Pain, Mild (Pain Scale 1-3) Lactated Ringer's (Lr) 1,000 mls @ 50 mls/hr IVCONT .Q20H CHRISTOPH Ondansetron HCl (Ondansetron Hcl 4 Mg/2 Ml Vial) 4 mg IVPUSH ONCE PRN PRN Reason: Nausea and Vomiting Home Medications Medication Instructions Recorded Confirmed Last Taken Type Lactobacillus rhamnosus GG 10 1 cap PO BID 10/14/21 02/14/22 01/20/22 History billion cell capsule (Culturelle) aspirin 81 mg chewable tablet 81 mg PO DAILY 10/14/21 02/14/22 01/20/22 History cholecalciferol (vitamin D3) 125 125 mcg PO DAILY 10/14/21 02/14/22 01/20/22 History mcg (5,000 unit) tablet (Vitamin D3) cyanocobalamin (vitamin B-12) 500 500 mcg PO DAILY 10/14/21 02/14/22 01/20/22 History mcg tablet donepezil 10 mg tablet 10 mg PO DAILY 10/14/21 02/14/22 01/20/22 History insulin glargine 100 unit/mL (3 13 unit SUBCUT BEDTIME 10/14/21 02/14/22 01/19/22 History mL) subcutaneous pen (Lantus Solostar U-100 Insulin) insulin lispro 100 unit/mL 2 unit SUBCUT QPM 10/14/21 02/14/22 01/19/22 History subcutaneous cartridge (Humalog U-100 Insulin) insulin lispro 100 unit/mL 4 unit SUBCUT DAILY 10/14/21 02/14/22 01/20/22 History subcutaneous cartridge (Humalog U-100 Insulin) insulin lispro 100 unit/mL 6 unit SUBCUT DAILY@1200 10/14/21 02/14/22 01/19/22 History subcutaneous cartridge (Humalog U-100 Insulin) methenamine hippurate 1 gram tablet 1 g PO BID 10/14/21 02/14/22 01/20/22 History simvastatin 20 mg tablet 20 mg PO BEDTIME 10/14/21 02/14/22 01/19/22 History sodium chloride 1 gram tablet 1 tab PO DAILY 01/20/22 02/14/22 01/19/22 History Exam Exam Date and Time: February 20, 2022 0729 Height,Weight and Vital Signs: Height 5 ft 5 in Weight 74.843 kg Last Vital Signs Temp 97.9 F 02/20/22 06:59 Pulse 84 02/20/22 06:59 Resp 18 02/20/22 06:59 BP 161/74 H 02/20/22 06:59 Pulse Ox 99 02/20/22 06:59 Pertinent Lab Results Pertinent Lab Results: Laboratory Tests 02/20/22 02/20/22 06:50 06:51 Sodium 136 Potassium 5.7 H D Chloride 102 Carbon Dioxide 28 Anion Gap 12 POC Glucose 173 H Assessment and Plan Final Anesthetic Review Family History of Problems with Anesthesia: No History of Problems with Anesthesia: No
[2022-02-20 07:40] LABS: INTERNATIONAL NORM RATIO 1.2 (0.9-1.1); Prothrombin Time 14.1 SEC (9.9-13.0)
[2022-02-20 07:58] VITALS: BP 98/48; PULSE 67; RESP 16; TEMP 36.7; O2SAT 99
--- NOTE | 2022-02-20 08:07 | PM.OP ---
Brief Operative Note Date of Service: 02/20/22 Pre-op diagnosis: Dysphagia Post-op diagnosis: other (Hiatal hernia, GERD, Esophageal dysmotility) Procedure: EGD with Balloon Dilation from 15 to 18mm Surgeon: Som Robert Anesthesia: MAC Was an Runner Worker used for this Procedure?: No Estimated blood loss (mL): 2.0 Pathology: none sent Condition: stable Disposition: PACU
[2022-02-20 08:13] VITALS: BP 104/52; PULSE 73; RESP 16; O2SAT 96
[2022-02-20 08:28] VITALS: BP 123/59; PULSE 67; RESP 16; O2SAT 97
--- NOTE | 2022-02-20 09:17 | PC.NURSE ---
BS TAKEN IN DISCHARGE AREA PER 'S REQUEST. BS 162.
[2022-02-20 09:18] LABS: Glucose, Whole Blood 162 mg/dL (60-115)
--- NOTE | 2022-02-20 14:30 | OP_ITS ---
SURGEON: Som Robert MD INDICATIONS: The patient presents for evaluation of esophagitis and dysphagia. Full consent has been obtained from her for this, including risks of bleeding and perforation. PREOPERATIVE DIAGNOSIS: POSTOPERATIVE DIAGNOSIS: PROCEDURE PERFORMED: Esophagogastroduodenoscopy with balloon dilation of gastroesophageal junction. ESTIMATED BLOOD LOSS: COMPLICATIONS: ANESTHESIA: Monitored anesthesia care. ASSISTANTS: SPECIMENS: PREOPERATIVE DIAGNOSES: Dysphagia and gastroesophageal reflux. POSTOPERATIVE DIAGNOSES: Dysphagia, gastroesophageal reflux, hiatal hernia, probable esophageal dysmotility. DESCRIPTION OF PROCEDURE: The patient was placed in the left lateral decubitus position. The Olympus video gastroscope was passed in the posterior oropharynx and upper esophagus under direct vision. The esophagus itself appeared to be dilated and with significantly diminished peristalsis. There also appeared to be some retained liquid and even bits of food. The patient has been on a strict full liquid diet, which was verified by her . The scope was advanced to the distal esophagus. The gastroesophageal junction appeared at approximately 34 cm. There may have been a short, less than 1 cm, segment of [place] mucosa. There was no evidence of any esophagitis nor ulceration. There was no stricture. The scope easily entered the stomach. There was a moderate-sized hiatal hernia. The scope was advanced to pylorus. The duodenum was cannulated to the descending portion. The duodenum including the bulb appeared normal without mass or ulceration. Scope was withdrawn back in the stomach. The gastric antrum and body appeared normal with good peristalsis. Scope was retroflexed visualizing the proximal stomach very carefully, which appeared normal, without any sign of mass or ulceration. The scope was straightened and withdrawn back to the esophagus. Given her symptomatology, I did use a [employer] incremental balloon to dilate the gastroesophageal junction from 15 mm to 18 mm at the recommended pressure for between 30 and 60 seconds each. Some slight amount of heme noted post dilation, but there was really no disruption of the gastroesophageal junction. The scope was withdrawn through the remainder of the esophagus. The esophageal mucosa appeared normal. There was no evidence of any proximal esophageal rings nor stricture. Again, the esophagus appeared to be somewhat dilated and with diminished peristalsis. The scope was withdrawn from the patient. She tolerated the procedure well and was returned to the recovery area in stable condition. IMPRESSION: 1. Probable esophageal dysmotility. 2. Hiatal hernia. 3. Gastroesophageal reflux. PLAN: The patient will continue her daily 40 mg omeprazole and I have instructed her to call me if they need refills. She apparently is on a liquid form of that, which is fine and probably helps her swallow. She has been advised to avoid all NSAIDs and aspirin long-term. She was advised to continue the same current full liquid and extremely soft diet. Her says he will put everything in a produce inspector for her. I did recommend that we will be in touch with her to set up an esophageal motility study and barium swallow to rule out things such as achalasia. MD YARITZA Adhikari/FLORESITA / [phone]
== END 2022-02-20 09:18 | disposition home or self-care (01) ==
PROVIDERS: Nurse Practitioner; PCP Internal Medicine Rheumatology; Visit Provider Internal Medicine
PROC: 0DJ08ZZ Inspection of Upper Intestinal Tract, Via Natural or Artificial Opening Endoscopic (ICD-10-PCS; CPT 43235; principal; 2022-02-20 07:30)
DX: R13.19 Other dysphagia (principal); K22.2 Esophageal obstruction; K21.9 Gastro-esophageal reflux disease without esophagitis; K44.9 Diaphragmatic hernia without obstruction or gangrene; E78.5 Hyperlipidemia, unspecified; F03.90 Unspecified dementia, unspecified severity, without behavioral disturbance, psychotic disturbance, mood disturbance, and anxiety; H40.9 Unspecified glaucoma; N28.9 Disorder of kidney and ureter, unspecified; I95.1 Orthostatic hypotension; G62.9 Polyneuropathy, unspecified; E10.8 Type 1 diabetes mellitus with unspecified complications; Z79.4 Long term (current) use of insulin; Z79.899 Other long term (current) drug therapy; Z85.828 Personal history of other malignant neoplasm of skin
CPT/HCPCS: 43249; 36415; 80051; 82947; 85610; C1726; J3010

== ENCOUNTER 2022-03-02 13:07 | Outpatient (REF) | payer OTHER, MEDICAID, SELFPAY ==
[2022-03-02 14:08] LABS: Leukocytes Stool Qualitative NEGATIVE (NEGATIVE)
[2022-03-02 14:28] LABS: CDiff Gene PCR NEGATIVE (Negative)
== END 2022-03-02 13:08 | disposition home or self-care (01) ==
LOC: HO.LNP 13:07
PROVIDERS: Visit Provider Internal Medicine
DX: R19.7 Diarrhea, unspecified (principal)
CPT/HCPCS: 87045; 87046; 87177; 87209; 87329; 87493; 89055

== ENCOUNTER 2022-03-12 08:45 | Inpatient (IN) | payer OTHER, MEDICAID, SELFPAY ==
[2022-03-12] VITALS (9 sets, daily range): BP systolic 93–183; BP diastolic 61–88; PULSE 78–100; RESP 15–16; TEMP 36.4–37; O2SAT 95–98; BMI 25.0
--- NOTE | ~2022-03-12 | CT_ITS ---
EXAMINATION: CT BRAIN AND CHEST. CLINICAL INFORMATION: Syncope COMPARISON: CT brain 10/14/2021. Chest x-ray 01/20/2022 TECHNIQUE: 5 mm thin axial and reformatted 2 mm thin sagittal and coronal images of brain were obtained without contrast. DLP 699. Chest 2 views. FINDINGS: Brain: There is no acute intra-axial, extra-axial bleed, masses or midline shift. There is no acute infarction evolution. There is no edema. The lateral ventricles are symmetrical in size and configuration with mild enlargement. There is diffuse periventricular hypodensity in both several hemispheres. There is dystrophic bibasal ganglia calcification. Bone windows reveal no calvarial abnormality. Bilateral paranasal sinuses and mastoid air cells are well-aerated. Chest x-ray: The lungs are somewhat expanded with increased markings in both mid and lower lung zones. There is a dense opacification in the left midlung which is stable. Heart size and pulmonary vascularity is normal. No gross bony abnormality seen. CT/CT head/brain wo con IMPRESSION: No acute intracranial process seen Mild cerebral volume loss with chronic small vessel ischemic changes, stable to previous study 10/14/2021. Prominent bilateral interstitial markings, stable. Prominent density in the left midlung is stable as well. There is no new findings.
--- NOTE | 2022-03-12 09:42 | ECG_ITS ---
Test Reason : syncope Blood Pressure : / mmHG Vent. Rate : 077 BPM Atrial Rate : 077 BPM P-R Int : 102 ms QRS Dur : 092 ms QT Int : 434 ms P-R-T Axes : 034 075 106 degrees QTc Int : 491 ms Sinus rhythm with short KS Nonspecific ST and T wave abnormality Abnormal ECG When compared with ECG of 28-JAN-2022 12:32, No significant changes seen Referred By: Linda Craven Electronically Signed By:JEANNE BENJAMIN
[2022-03-12 09:43] LABS: Glucose, Whole Blood 144 mg/dL (60-115)
--- NOTE | 2022-03-12 09:59 | ED_ITS ---
HPI - Syncope General Chief Complaint: Syncope Stated Complaint: +LOC X'S 5 MIN IN BR, WIT BY PER EMS Time Seen by Provider: 03/12/22 09:41 Source: patient and family Mode of arrival: EMS Limitations: no limitations History of Present Illness HPI narrative: Patient presents to the emergency department via EMS with her for evaluation after a syncopal episode. Patient's reports that at 0800, patient awoke and got out of bed to go to the commode which she was able to do without complication. He states that while she was sitting on the commode she began to not seem like herself, not making sense when she was talking to him, she attempted to stand to apply her brief, and then sat back down to the commode and syncopized, was diaphoretic at that time. Per her she had loss of consciousness for 5 minutes, was breathing at the time, he checked her blood sugar it was 140, she was unable to take anything by mouth. After about 5 minutes she came to, and still seemed confused to him. He reports that over the past week or so she has been having brief intermittent episodic episodes of confusion, states that she had blood work done last week which he states he was advised were all ?within normal limits?. At the time of my exam patient has no recollection of these events, currently she has no complaints. MD complaint: loss of consciousness Onset (ago): minute(s) Duration of episode: 5 -: minutes(s) Witnessed: Yes - by Other () Related Data Home Medications Medication Instructions Recorded Confirmed Lactobacillus rhamnosus GG 10 1 cap PO BID 10/14/21 03/12/22 billion cell capsule (Culturelle) cholecalciferol (vitamin D3) 125 125 mcg PO DAILY@1700 10/14/21 03/12/22 mcg (5,000 unit) tablet (Vitamin D3) cyanocobalamin (vitamin B-12) 500 500 mcg PO DAILY 10/14/21 03/12/22 mcg tablet donepezil 10 mg tablet 10 mg PO DAILY 10/14/21 03/12/22 insulin glargine 100 unit/mL (3 21 unit subcut BEDTIME 10/14/21 03/12/22 mL) subcutaneous pen (Lantus Solostar U-100 Insulin) insulin lispro 100 unit/mL 2 unit subcut QPM 10/14/21 03/12/22 subcutaneous cartridge (Humalog U-100 Insulin) insulin lispro 100 unit/mL 4 unit subcut DAILY 10/14/21 03/12/22 subcutaneous cartridge (Humalog U-100 Insulin) insulin lispro 100 unit/mL 7 unit subcut DAILY@1200 10/14/21 03/12/22 subcutaneous cartridge (Humalog U-100 Insulin) methenamine hippurate 1 gram tablet 1 g PO BID@0900,1700 10/14/21 03/12/22 simvastatin 20 mg tablet 20 mg PO BEDTIME 10/14/21 03/12/22 sodium chloride 1 gram tablet 2 tab PO DAILY 01/20/22 03/12/22 insulin lispro 100 unit/mL 1 sliding scale dose subcut TIDAC 03/12/22 03/12/22 subcutaneous solution (Humalog U-100 Insulin) omeprazole magnesium 10 mg oral 40 mg PO BID 03/12/22 03/12/22 suspension,delayed release sodium chloride 1 gram tablet 1,000 mg PO DAILY@1730 03/12/22 03/12/22 Allergies Allergy/AdvReac Type Severity Reaction Status Date / Time Sulfa (Sulfonamide Allergy Severe RASH/HIVES, Verified 02/14/22 14:30 Antibiotics) hives [SULFA (SULFONAMIDE ANTIBIOTICS)] insulin aspart Allergy Unknown HIVES Verified 02/14/22 14:30 [From NOVOLOG U-100 INSULIN ASPART] levofloxacin [From LEVAQUIN] AdvReac Intermediate BLOOD Verified 02/14/22 14:30 SUGAR DROPS milk [MILK] AdvReac Mild NAUSEA Verified 02/14/22 14:30 Review of Systems Review of Systems: Constitutional: No weight loss. No fever. No chills. No weakness. No fatigue. Eye: No swelling. No redness. ENT: No sore throat. No rhinorrhea. No nasal congestion. No sore throat. No difficulty swallowing. Skin: No rash. No itching. Cardiovascular: No chest pain. No chest pressure. No palpitations. Positive pedal edema. Respiratory: No shortness of breath. No cough. No sputum production. Gastrointestinal: No anorexia. No nausea. No vomiting. No diarrhea. No abdominal pain. No blood in stool. Genitourinary: No burning micturition. No urinary frequency. No incontinence. Neurologic: No headache. No dizziness. Positive syncope. No unilateral weakness. No ataxia. No numbness. No tingling. No change in bowel or bladder control. Musculoskeletal: No muscle pain. No back pain. No joint pain. No stiffness. Endocrine: No polyuria. No polydipsia. [facility] Past Medical History Attestation statement: The following information was validated with the patient. Source: old records reviewed Medical History CAD (coronary artery disease) CKD (chronic kidney disease), stage III COVID-19 Dementia DM type 1 (diabetes mellitus, type 1) Esophageal dilatation GERD (gastroesophageal reflux disease) Glaucoma HTN (hypertension) Hypercholesterolemia Hyperkalemia Hypothyroid Neuropathy Orthostatic hypotension POTS (postural orthostatic tachycardia syndrome) PPD positive QT prolongation Retinopathy Vitamin B12 deficiency Social History Social History Household Members: Spouse Housing: House Do you presently have visiting nurse or other home services: No (unable to asess) Unable to assess alcohol history related to: Unable to respond Alcohol intake: never Patient Tobacco Use Status: Never used Tobacco Use of substances other than those prescribed or required for medical reasons: No Advance Directives: Yes Advance Directives on File: Yes Advance Directives Date on File: 10/23/21 service: No Current occupational status: retired Physical Exam Vital Signs: Vital Signs: Last Vital Signs Temp 98.6 F 03/12/22 16:00 Pulse 78 03/12/22 16:00 Resp 16 03/12/22 16:00 BP 173/80 H 03/12/22 16:00 Pulse Ox 98 03/12/22 16:00 O2 Del Method 03/12/22 16:00 BMI result Body Mass Index 25.0 Vital signs have been reviewed as normal and appeared to be correct. Hypertensive.? Heart rate normal.? Respiration rate normal. Temperature normal.? Oxygen saturation normal. Appearance: Alert.?Oriented to person, place and time. No acute distress.?Normal affect. Eyes: Pupils equal, round and reactive to light.? EOMI. No nystagmus. ENT: Pharynx normal.?? Neck: Normal inspection.? Neck supple.?? CVS: Heart sounds normal. Normal heart rate and rhythm.? Pulses normal.??No JVD Respiratory: No respiratory distress.? Lung sounds clear to auscultation bilaterally?? Abdomen: Soft and non-tender. Normoactive bowel sounds. No pulsatile mass.?? Skin: Skin warm and dry.? Normal skin color.? ? Extremities: 2+ pitting lower extremity edema bilaterally. No calf ttp? Neuro: No focal neurological deficit observed, CN II-XII intact, normal sensory observed, normal coordination observed. Level of consciousness: Appropriate for age. Motor strength: right upper extremity 5 /5, left upper extremity 5 /5, right lower extremity 5 /5, left lower extremity 5 /5.?Speech: Normal, Gait: Normal, Yxjyby-[id number] test: Normal, Fomm-wh-japu test: Normal. NIH Stroke Scale Time: 10:00 Level of Consciousness: Alert Level of Consciousness Questions: Answers both questions correctly Level of Consciousness Commands: Performs both tasks correctly Best Gaze: Normal Visual: No visual loss Facial Palsy: Normal Motor Arm (Right): No drift Motor Arm (Left): No drift Motor Leg (Right): No drift Motor Leg (Left): No drift Limb Ataxia: Absent Sensory: Normal Best Language: No aphasia Dysarthia: Normal Extinction and Inattention: No abnormality Score: 0 Course Course Course Narrative: Patient is a 76-year-old female with a past medical history of CAD, CKD, dementia, GERD, hypertension, hypercholesterolemia, hypothyroidism, orthostatic hypotension, POTS, QT prolongation. Of note, patient was admitted to the ICU in September 2021 due to acute hyponatremia, at that time her had reported seizure-like activity, was found to have a sodium of 113 at that time, was unresponsive. Patient currently presenting to emergency department for evaluat ion after a syncopal episode, no reports of preceding symptoms. Based on history surrounding event, this may have been a vasovagal episode. However, Will obtain CBC to evaluate for leukocytosis/ anemia, CMP to evaluate for abnormal electrolytes /abnormal renal function/ abnormal hepatic function, EKG and troponin to evaluate for ischemia/ACS. Chest x-ray to evaluate for consolidation/ infiltrate/ mass/ pulmonary congestion. Urinalysis to evaluate for infection, and CT head. Disposition pending results. Reevaluation(s) Reevaluation #1: EKG reveals normal sinus rhythm with short GA interval, no acute ischemic findings, troponin 8.8. Orthostatic vital signs were positive. Sodium corrected for hyperglycemia, 130, hyperkalemia 5.5, history of similar in the past, BUN and creatinine are elevated from baseline 43/1.4 suspect this may be due to dehydration, patient to receive 1 L normal saline. CBC overall unremarkable. CT of the head reveals no acute intracranial process. Chest x-ray no acute findings. COVID 19 testing negative. Urinalysis is pending at this time. Time: 11:36 Reevaluation #2: Given positive syncopal episode or loss of consciousness, cannot completely exclude dysrhythmia, patient requires admission for further observation and management. Spoke with hospitalist service, patient for admission to medicine by Dr. Leigh Time: 12:53 MDM - Syncope Medical Records Attestation: I reviewed the patient's medical records. Lab Data Attestation: I reviewed the patient's lab results. Result diagrams: 03/12/22 11:01 03/12/22 10:54 Labs: Lab Results 03/12/22 03/12/22 03/12/22 Range/Units 09:34 10:53 10:54 WBC (4.8-10.8) X10*3/uL RBC (4.20-5.50) X10*6/uL Hgb (12.0-16.0) g/dl Hct (37.0-47.0) % MCV (80.0-98.0) fL MCH (27.0-33.0) pg MCHC (31.0-35.0) g/dl RDW (11.0-16.0) % Plt Count (160-400) X10*3/uL MPV (9.4-12.3) fL Immature Gran % (Auto) (0.0-0.4) % Neut % (Auto) (45-73) % Lymph % (Auto) (20-40) % [place] % (Auto) (2-11) % Eos % (Auto) (0-4) % Baso % (Auto) (0-2) % Lymph # (Auto) (1.2-4.9) X10*3/uL [place] # (Auto) (0.1-1.2) X10*3/uL Eos # (Auto) (0.0-0.4) X10*3/uL Baso # (Auto) (0.0-0.2) X10*3/uL Abs Immat Gran (auto) (0.00-0.03) X10*3/uL Absolute Neuts (auto) (2.0-8.3) x10*3/uL Absolute Nucleated RBC (0.0-0.012) X10*3/uL Nucleated RBC % (auto) (0.0-0.2) /100WBC Sodium (135-145) mmol/L Potassium (3.3-5.1) mmol/L Chloride (96-108) mmol/L Carbon Dioxide (22-29) mmol/L Anion Gap (12-20) BUN (9-16) mg/dL Creatinine (0.5-1.4) mg/dL Estim Creat Clear Calc Estimated GFR POC Glucose 144 H (60-115) mg/dL Random Glucose (60-115) mg/dL Calcium (8.4-10.2) mg/dL Magnesium (1.6-2.6) mg/dL Total Bilirubin (0.0-1.0) mg/dL AST (5-31) U/L ALT (0-31) U/L Alkaline Phosphatase (39-117) U/L Troponin I High Sens (<3.5-17.0) ng/L B-Natriuretic Peptide 55 (<100) pg/mL Total Protein (6.5-8.0) g/dL Albumin (3.5-5.0) g/dL COVID-19 (CRISTINO) Negative (Negative) COVID-19 Clin Com See Note 03/12/22 03/12/22 03/12/22 Range/Units 10:54 11:01 11:01 WBC 4.9 (4.8-10.8) X10*3/uL RBC 4.00 L (4.20-5.50) X10*6/uL Hgb 12.2 (12.0-16.0) g/dl Hct 36.7 L (37.0-47.0) % MCV 91.8 (80.0-98.0) fL MCH 30.5 (27.0-33.0) pg MCHC 33.2 (31.0-35.0) g/dl RDW 13.3 (11.0-16.0) % Plt Count 208 D (160-400) X10*3/uL MPV 11.7 (9.4-12.3) fL Immature Gran % (Auto) 0.4 (0.0-0.4) % Neut % (Auto) 66.5 (45-73) % Lymph % (Auto) 18.1 L (20-40) % [place] % (Auto) 13.0 H (2-11) % Eos % (Auto) 1.4 (0-4) % Baso % (Auto) 0.6 (0-2) % Lymph # (Auto) 0.9 L (1.2-4.9) X10*3/uL [place] # (Auto) 0.6 (0.1-1.2) X10*3/uL Eos # (Auto) 0.1 (0.0-0.4) X10*3/uL Baso # (Auto) 0.0 (0.0-0.2) X10*3/uL Abs Immat Gran (auto) 0.02 (0.00-0.03) X10*3/uL Absolute Neuts (auto) 3.3 (2.0-8.3) x10*3/uL Absolute Nucleated RBC 0.000 (0.0-0.012) X10*3/uL Nucleated RBC % (auto) 0.0 (0.0-0.2) /100WBC Sodium 134 L (135-145) mmol/L Potassium 5.5 H (3.3-5.1) mmol/L Chloride 100 (96-108) mmol/L Carbon Dioxide 26 (22-29) mmol/L Anion Gap 14 (12-20) BUN 43 H D (9-16) mg/dL Creatinine 1.44 H (0.5-1.4) mg/dL Estim Creat Clear Calc 29.4 Estimated GFR 35 POC Glucose (60-115) mg/dL Random Glucose 195 H (60-115) mg/dL Calcium 8.9 (8.4-10.2) mg/dL Magnesium 2.3 (1.6-2.6) mg/dL Total Bilirubin 0.9 (0.0-1.0) mg/dL AST 12 (5-31) U/L ALT 19 (0-31) U/L Alkaline Phosphatase 168 H D (39-117) U/L Troponin I High Sens 8.8 D (<3.5-17.0) ng/L B-Natriuretic Peptide (<100) pg/mL Total Protein 6.5 (6.5-8.0) g/dL Albumin 3.9 (3.5-5.0) g/dL COVID-19 (CRISTINO) (Negative) COVID-19 Clin Com Imaging Data Chest x-ray: Radiologist's impression: XR/XR chest 2V IMPRESSION: Prominent bilateral interstitial markings, stable. Prominent density in the left midlung is stable as well. There is no new findings.? CT scan - head: Radiologist's impression: CT/CT head/brain wo con IMPRESSION: No acute intracranial process seen ? Mild cerebral volume loss with chronic small vessel ischemic changes, stable to previous study 10/14/2021. ? Prominent bilateral interstitial markings, stable. Prominent density in the left midlung is stable as well. There is no new findings.? ECG Data Attestation: I personally reviewed and interpreted this ECG as follows: ECG interpretation date: 03/12/22 Prior ECG tracings: available for review Interpretation: Rate: 77 Rhythm:? Sinus rhythm, [place]:? Normal Normal P waves.? Short [place], 102.?? Normal QRS complex.?? ST T wave :??No ST elevation, ST depression, nonspecific ST abnormality qTC: 491 prior studies:? January 2022 The study has been interpreted contemporaneously by me. Discharge Plan Discharge Clinical Impression: Syncope, Loss of consciousness, Acute kidney injury, Hyperkalemia Patient Disposition: Admitted As Inpatient
[2022-03-12 11:09] LABS: MANUAL DIFF FLAG NO
[2022-03-12 11:15] LABS: Basophils Percent Auto 0.6 % (0-2); Eosinophils Absolute Auto 0.1 X10*3/uL (0.0-0.4); Eosinophils Percent Auto 1.4 % (0-4); Hematocrit 36.7 % (37.0-47.0); Hemoglobin 12.2 g/dl (12.0-16.0); Imm Gran Abs Auto 0.02 X10*3/uL (0.00-0.03); Imm Gran Pct Auto 0.4 % (0.0-0.4); Lymphocytes Absolute Auto 0.9 X10*3/uL (1.2-4.9); Lymphocytes Percent Auto 18.1 % (20-40); Mean Corpuscular HGB Conc 33.2 g/dl (31.0-35.0); Mean Corpuscular Hemoglobin 30.5 pg (27.0-33.0); Mean Corpuscular Volume 91.8 fL (80.0-98.0); Mean Platelet Volume 11.7 fL (9.4-12.3); Monocytes Absolute Auto 0.6 X10*3/uL (0.1-1.2); Neutrophils Absolute Auto 3.3 x10*3/uL (2.0-8.3); Neutrophils Percent Auto 66.5 % (45-73); Red Cell Distribution Width 13.3 % (11.0-16.0); White Blood Count 4.9 X10*3/uL (4.8-10.8)
[2022-03-12 11:16] LABS: COVID-19 Test Negative (Negative); IDNOW Serial# 9DB6401D
--- NOTE | 2022-03-12 11:19 | PC.NURSE ---
patient a&o, cable respooler nsr 80s, vitals stable- pt bp currently wnl, at bedside, call joshi within reach, will continue to monitor
[2022-03-12 11:20] LABS: Alanine Aminotransferase 19 U/L (0-31); Albumin Level 3.9 g/dL (3.5-5.0); Alkaline Phosphatase 168 U/L (39-117); Anion Gap 14 (12-20); Aspartate Amino Transferase 12 U/L (5-31); Bilirubin Total 0.9 mg/dL (0.0-1.0); Blood Urea Nitrogen 43 mg/dL (9-16); Calcium 8.9 mg/dL (8.4-10.2); Carbon Dioxide 26 mmol/L (22-29); Chloride 100 mmol/L (96-108); Creatinine Clr Calc Pharmacy 29.4; Estimated Glomerular Filt Rate 35; Glucose Random 195 mg/dL (60-115); Magnesium 2.3 mg/dL (1.6-2.6); Potassium 5.5 mmol/L (3.3-5.1); Sodium 134 mmol/L (135-145); Total Protein 6.5 g/dL (6.5-8.0)
[2022-03-12 11:23] LABS: B Type Natriuretic Peptide 55 pg/mL (<100)
[2022-03-12 11:34] LABS: Platelet Count 208 X10*3/uL (160-400)
[2022-03-12 11:35] LABS: Troponin-I High Sensitivity 8.8 ng/L (<3.5-17.0)
[2022-03-12] MEDS: 0.9 % Sodium Chloride 1,000 ML 999 ML IV (12:35)
--- NOTE | 2022-03-12 13:24 | P.HPHOSP_ITS ---
History of Present Illness Date of Service: 03/12/22 Chief Complaint: syncope This is a 76 yo F with a PMH of orthostatic hypotension (and suspected supine HTN -- previously on midodrine, taken off due to elevated BPs), DM type 1, Dementia, Dysphagia secondary to esophageal strictures / ucleration who presented to [facility] after a witness syncopal episode by her . The history is obtained from the as the patient is an unreliable historian. Per the , the patient went to her commode over night (near the bed) and did not have any pre-syncopal symptoms. While on the commode (unclear if there was any straining or not) the patient showed pre-syncopal symptoms and when she stood up, she appeared to be already losing consciousness and after sitting back down, she did have LOC lasting about 5 minutes. Hence, the called EMS and she was brought here. Per the : the patient has a baseline history of orthostatic for which she has been out to [address] and had testing done. She was previously on midodrine but this was discontinued due to elevated BPs. He states that last week, she was diagnosed with an UTI (e. coli) and was given a single dose med (name stats with F -- ? fosfomyocin). He reports she has several days of diarrhea last week as well (prior to antibiotics) which has resolved. He reports that she has had several episodes in the past week where she was confused (beyond baseline). He reports a decrease in oral intake for the last several weeks. Upon arrival to the ED, the patient had positive orthostatic -- SBP dropped from 183 to 155 to 93 (supine, sitting, standing). Her SCr was mildly elevated. She was given 1L IVF and admission was requested. Pt is seen and examined in the ED. (HCP) is bedside. Pt reports no pre- syncopal symptoms in supine position. Review of Systems Review of Systems: negative except HPI [facility] Medical History CAD (coronary artery disease) CKD (chronic kidney disease), stage III COVID-19 Dementia DM type 1 (diabetes mellitus, type 1) Esophageal dilatation GERD (gastroesophageal reflux disease) Glaucoma HTN (hypertension) Hypercholesterolemia Hyperkalemia Hypothyroid Neuropathy Orthostatic hypotension POTS (postural orthostatic tachycardia syndrome) PPD positive QT prolongation Retinopathy Vitamin B12 deficiency Social History Household Members: Spouse Housing: House Do you presently have visiting nurse or other home services: No (unable to asess) Unable to assess alcohol history related to: Unable to respond Alcohol intake: never Patient Tobacco Use Status: Never used Tobacco Use of substances other than those prescribed or required for medical reasons: No Advance Directives: Yes Advance Directives on File: Yes Advance Directives Date on File: 10/23/21 service: No Current occupational status: retired Meds Allergies Allergy/AdvReac Type Severity Reaction Status Date / Time Sulfa (Sulfonamide Allergy Severe RASH/HIVES, Verified 02/14/22 14:30 Antibiotics) hives [SULFA (SULFONAMIDE ANTIBIOTICS)] insulin aspart Allergy Unknown HIVES Verified 02/14/22 14:30 [From NOVOLOG U-100 INSULIN ASPART] levofloxacin [From LEVAQUIN] AdvReac Intermediate BLOOD Verified 02/14/22 14:30 SUGAR DROPS milk [MILK] AdvReac Mild NAUSEA Verified 02/14/22 14:30 Active Medications: Current Medications Acetaminophen (Acetaminophen 325 Mg Tablet) 650 mg PO Q6H PRN PRN Reason: Pain, Mild (Pain Scale 1-3) Heparin Sodium (Porcine) (Heparin Sodium,Porcine 5,000 Unit/Ml Vial) 5,000 unit SUBCUT Q12H CHRISTOPH Ondansetron HCl (Ondansetron Hcl 4 Mg/2 Ml Vial) 4 mg IVPUSH Q8H PRN PRN Reason: Nausea and Vomiting Pharmacy Consult (Consult Rx Perform Med Rec) 1 each MISCELLANE ONCE PRN PRN Reason: Consult order Sodium Chloride (0.9 % Sodium Chloride Flush 3 Ml Syringe) 3 ml IVFLUSH QSHIFT CHRISTOPH Home Medications Medication Instructions Recorded Confirmed Last Taken Type Lactobacillus rhamnosus GG 10 1 cap PO BID 10/14/21 02/14/22 01/20/22 History billion cell capsule (Culturelle) aspirin 81 mg chewable tablet 81 mg PO DAILY 10/14/21 02/14/22 01/20/22 History cholecalciferol (vitamin D3) 125 125 mcg PO DAILY 10/14/21 02/14/22 01/20/22 History mcg (5,000 unit) tablet (Vitamin D3) cyanocobalamin (vitamin B-12) 500 500 mcg PO DAILY 10/14/21 02/14/22 01/20/22 History mcg tablet donepezil 10 mg tablet 10 mg PO DAILY 10/14/21 02/14/22 01/20/22 History insulin glargine 100 unit/mL (3 13 unit subcut BEDTIME 10/14/21 02/14/22 01/19/22 History mL) subcutaneous pen (Lantus Solostar U-100 Insulin) insulin lispro 100 unit/mL 2 unit subcut QPM 10/14/21 02/14/22 01/19/22 History subcutaneous cartridge (Humalog U-100 Insulin) insulin lispro 100 unit/mL 4 unit subcut DAILY 10/14/21 02/14/22 01/20/22 History subcutaneous cartridge (Humalog U-100 Insulin) insulin lispro 100 unit/mL 6 unit subcut DAILY@1200 10/14/21 02/14/22 01/19/22 History subcutaneous cartridge (Humalog U-100 Insulin) methenamine hippurate 1 gram tablet 1 g PO BID 10/14/21 02/14/22 01/20/22 History simvastatin 20 mg tablet 20 mg PO BEDTIME 10/14/21 02/14/22 01/19/22 History sodium chloride 1 gram tablet 1 tab PO DAILY 01/20/22 02/14/22 01/19/22 History Physical Exam Vital Signs and Narrative: Vital Signs: Last Vital Signs Temp 97.8 F 03/12/22 11:18 Pulse 81 03/12/22 11:18 Resp 16 03/12/22 11:18 BP 161/73 H 03/12/22 11:18 Pulse Ox 98 03/12/22 11:18 O2 Del Method 03/12/22 11:18 BMI result Body Mass Index 25.0 Const: Other: Constitutional - Awake and Alert, No apparent distress Eyes - PERRLA, EOMI Cardiovascular - S1S2, RRR, No edema Respiratory - Normal lung expansion, Normal respiratory effort, No respiratory distress, CTA bilaterally Gastrointestinal - NT / ND; +BS; No rebound or guarding - No CVA tenderness Extremities - no calf tenderness bilaterally, no swelling Musculoskeletal - Normal inspection, normal ROM Skin - Warm/Dry Neurological - awake and alert; non-focal exam; oriented to self Psychological - Appropriate affect Results Labs CBC and Chem 7: 03/12/22 11:01 03/12/22 10:54 Labs: Laboratory Results - last 24 hr 03/12/22 03/12/22 03/12/22 09:34 10:53 10:54 MCV MCH MCHC RDW Plt Count MPV Immature Gran % (Auto) Neut % (Auto) Lymph % (Auto) [place] % (Auto) Eos % (Auto) Baso % (Auto) Lymph # (Auto) [place] # (Auto) Eos # (Auto) Baso # (Auto) Abs Immat Gran (auto) Absolute Neuts (auto) Absolute Nucleated RBC Nucleated RBC % (auto) Anion Gap Estim Creat Clear Calc Estimated GFR POC Glucose 144 H Random Glucose Calcium Magnesium Total Bilirubin AST ALT Alkaline Phosphatase Troponin I High Sens B-Natriuretic Peptide 55 Total Protein Albumin COVID-19 (CRISTINO) Negative COVID-19 Clin Com See Note 03/12/22 03/12/22 03/12/22 10:54 11:01 11:01 MCV 91.8 MCH 30.5 MCHC 33.2 RDW 13.3 Plt Count 208 D MPV 11.7 Immature Gran % (Auto) 0.4 Neut % (Auto) 66.5 Lymph % (Auto) 18.1 L [place] % (Auto) 13.0 H Eos % (Auto) 1.4 Baso % (Auto) 0.6 Lymph # (Auto) 0.9 L [place] # (Auto) 0.6 Eos # (Auto) 0.1 Baso # (Auto) 0.0 Abs Immat Gran (auto) 0.02 Absolute Neuts (auto) 3.3 Absolute Nucleated RBC 0.000 Nucleated RBC % (auto) 0.0 Anion Gap 14 Estim Creat Clear Calc 29.4 Estimated GFR 35 POC Glucose Random Glucose 195 H Calcium 8.9 Magnesium 2.3 Total Bilirubin 0.9 AST 12 ALT 19 Alkaline Phosphatase 168 H D Troponin I High Sens 8.8 D B-Natriuretic Peptide Total Protein 6.5 Albumin 3.9 COVID-19 (CRISTINO) COVID-19 Clin Com Imaging Radiologist's Impressions: Impressions Head CT 03/12/22 10:14 IMPRESSION: No acute intracranial process seen Mild cerebral volume loss with chronic small vessel ischemic changes, stable to previous study 10/14/2021. Prominent bilateral interstitial markings, stable. Prominent density in the left midlung is stable as well. There is no new findings. Chest X-Ray 03/12/22 10:44 IMPRESSION: No acute intracranial process seen Mild cerebral volume loss with chronic small vessel ischemic changes, stable to previous study 10/14/2021. Prominent bilateral interstitial markings, stable. Prominent density in the left midlung is stable as well. There is no new findings. Assessment and Plan (1) Syncope: Status: Acute Plan This is a 76 yo F who presents to the ED after a witnessed syncopal episode. She is found to have orthostatic hypotension with mild ABIGAIL. She will be admitted for furthe work up and treatment. 1. Syncope likely orthostatic in nature with significantly positive vitals previously on midodrine, but taken off (unclear when) due to HTN (suspect that she has supine HTN with orthostatic hypotension) given IVF, repeat orthos tomorrow AM monitor on tele 2. Mild ABIGAIL, mild hyperK baseline SCr range from 0.6 to 1.3; presenting with 1.44 gentle IVF as above 3. Dysphagia due to known esophageal sticture -- on full liquids at home, will continue 4. DM, type 1 use sliding scale for now, add lantus if sugars stable tomorrow POC QIDAC 5. Recent UTI per treatment with oral med for E. Coli UTI will check UA and treat with rocephin if still concerning 6. Dementia, suspected alzheimer's type continue baseline meds Med rec pending -- continue home meds as appropriate. Full Code DVT pptx, high risk, subcut heparin endorses that he is HCP Quality Stroke Does the patient have a stroke diagnosis?: No VTE Prior VTE?: No VTE Risk Level:: Surgical - very high VTE Device Contraindication: Treatment Not Indicated VTE Drug Contraindication: N/A - Med Ordered
--- NOTE | 2022-03-12 14:22 | PHA.MEDREC ---
Pharmacy Consult ? Medication Reconciliation Pharmacy has completed the medication reconciliation. confirmed all medications. Received a list from [facility] to confirm as well. report Lantus must be given at 2100 every night. Also reports patient is on a liquid diet with splenda shakes. Ana Urbina, PharmD
[2022-03-12] MEDS: Heparin Sodium,Porcine 5,000 UNIT/ML VIAL 5000 UNIT SUBCUT (14:33)
[2022-03-12 15:37] LABS: Appearance Urine CLOUDY; Glucose Urine UA 100 MG/DL (NEG); Leukocyte Esterase Urine NEG (NEG); Nitrite Urine NEG (NEG); Specific Gravity - Urine >= 1.030 (1.005-1.025); UACC Culture Trigger NO; Urine Blood 1+ (NEG); Urine Ketones 5 MG/DL (NEG); Urine Protein 2+ MG/DL (NEG-TRACE)
[2022-03-12 15:40] LABS: Bacteria Urine 4+ /LPF; Squamous Epithelial Cell Urine 1+ /LPF; UACC CULT YES; WBC Urine 50-75 /HPF (0-4)
[2022-03-12 15:41] LABS: Renal Epithelial Cells Urine 3+ /LPF; Urine Talc Crystals 1+ /LPF
[2022-03-12 15:44] LABS: Color Urine YELLOW
--- NOTE | 2022-03-12 16:32 | PC.NURSE ---
FRESH FLUIDS GIVEN TO PATIENT , AT BEDSIDE VITALS AND POC TAKEN ,PATIENT RESTING IN BED .
[2022-03-12 16:40] LABS: Glucose, Whole Blood 151 mg/dL (60-115)
[2022-03-12] MEDS: Sodium Chloride Tab 1 GM TABLET PO (18:25)
[2022-03-12] MEDS: Cholecalciferol (Vitamin D3) 25 MCG TABLET 125 MCG PO (18:25)
[2022-03-12] MEDS: 0.9 % Sodium Chloride Flush 3 ML SYRINGE IVFLUSH (18:26)
--- NOTE | 2022-03-12 18:59 | PC.NURSE ---
Addendum entered by Marva Walter 03/12/22 21:48: called to overflow to give report RN stated that will call back Addendum entered by Marva Walter 03/12/22 19:59: pt alert and oriented. resting in bed. pt vomited x1. denies any nausea. pt offered zofran, refuse it at this time. Original Note: report received from BENNY Grady
[2022-03-12 21:02] LABS: Glucose, Whole Blood 153 mg/dL (60-115)
--- NOTE | 2022-03-12 22:28 | MHC.CM.PN ---
Addendum entered by Nayely Purcell 03/12/22 22:31: Evy Ching called from [facility] regarding pt ?admission vs Obs and reason for ED visit. Answered all questions. Pt obs status. CM to follow for d/c needs. Original Note: CEDRIC 03/12. A&Ox3. HCP on file. HCP/ Angel Chilel ([phone]). MOLST on file. Full code. Lives with . Has commode and walker. Denies services in the home. States she had them in the past. Will need to verify with HCP. D/C plan is home without services. will transport.
[2022-03-12] MEDS: Atorvastatin Calcium 10 MG TABLET PO (22:42)
[2022-03-13] VITALS (10 sets, daily range): BP systolic 120–197; BP diastolic 62–90; PULSE 91–114; RESP 12–21; TEMP 36.2–36.9; O2SAT 94–99
[2022-03-13] MEDS: 0.9 % Sodium Chloride Flush 3 ML SYRINGE IVFLUSH ×3 (00:29→15:29)
[2022-03-13] MEDS: Heparin Sodium,Porcine 5,000 UNIT/ML VIAL 5000 UNIT SUBCUT ×2 (00:42→15:28)
[2022-03-13 03:43] LABS: Hematocrit 35.5 % (37.0-47.0); Hemoglobin 11.5 g/dl (12.0-16.0); Mean Corpuscular HGB Conc 32.4 g/dl (31.0-35.0); Mean Corpuscular Hemoglobin 29.9 pg (27.0-33.0); Mean Corpuscular Volume 92.2 fL (80.0-98.0); Mean Platelet Volume 11.8 fL (9.4-12.3); Platelet Count 190 X10*3/uL (160-400); Red Blood Count 3.85 X10*6/uL (4.20-5.50); Red Cell Distribution Width 13.4 % (11.0-16.0); White Blood Count 6.3 X10*3/uL (4.8-10.8)
[2022-03-13 04:13] LABS: Anion Gap 14 (12-20); Blood Urea Nitrogen 34 mg/dL (9-16); Calcium 8.2 mg/dL (8.4-10.2); Carbon Dioxide 20 mmol/L (22-29); Chloride 105 mmol/L (96-108); Estimated Glomerular Filt Rate 50; Glucose Random 170 mg/dL (60-115); Potassium 4.4 mmol/L (3.3-5.1); Sodium 135 mmol/L (135-145)
[2022-03-13] MEDS: Cyanocobalamin (Vitamin B-12) 500 MCG TABLET PO (10:09)
[2022-03-13] MEDS: Donepezil HCl 10 MG TABLET PO (10:09)
[2022-03-13] MEDS: 0.9 % Sodium Chloride 1,000 ML 100 ML IVCONT (11:52)
[2022-03-13] MEDS: Cholecalciferol (Vitamin D3) 25 MCG TABLET 125 MCG PO (15:28)
--- NOTE | 2022-03-13 16:47 | P.PNIM_ITS ---
Subjective Subjective Date of Service: 03/13/22 Interval History: Remains somewhat orthostatic overall. No acute issues Review of Systems Denies chest pain Denies shortness of breath Denies nausea vomiting diarrhea Denies fever chills Physical Exam Vital Signs: Vital Signs: Last Vital Signs Temp 98.1 F 03/13/22 15:26 Pulse 107 H 03/13/22 15:26 Resp 21 H 03/13/22 15:26 BP 182/80 H 03/13/22 15:26 Pulse Ox 97 03/13/22 15:26 O2 Del Method 03/13/22 15:26 BMI result Body Mass Index 25.0 Const: Other: Awake confused no acute distress Resp: Other: Clear to auscultation bilaterally no rales rhonchi or wheezes Cardio: Other: No S4; positive S1-S2; no S3 murmurs rubs or gallops GI: Other: Soft nontender nondistended with normoactive bowel sounds Extrem: Other: No edema bilateral Objective Data Active Medications Acetaminophen (Acetaminophen 325 Mg Tablet) 650 mg PO Q6H PRN PRN Reason: Pain, Mild (Pain Scale 1-3) Atorvastatin Calcium (Atorvastatin Calcium 10 Mg Tablet) 10 mg PO BEDTIME [facility] Last Admin: 03/12/22 22:42 Dose: 10 mg Documented By: JENNIFER-CANF Cyanocobalamin (Cyanocobalamin (Vitamin B-12) 500 Mcg Tablet) 500 mcg PO DAILY [facility] Last Admin: 03/13/22 10:09 Dose: 500 mcg Documented By: ROHAN Donepezil HCl (Donepezil Hcl 10 Mg Tablet) 10 mg PO DAILY [facility] Last Admin: 03/13/22 10:09 Dose: 10 mg Documented By: ROHAN Heparin Sodium (Porcine) (Heparin Sodium,Porcine 5,000 Unit/Ml Vial) 5,000 unit SUBCUT Q12H [facility] Last Admin: 03/13/22 15:28 Dose: 5,000 unit Documented By: ROHAN Sodium Chloride (Ns) 1,000 mls @ 100 mls/hr IVCONT .Q10H [facility] Last Admin: 03/13/22 11:52 Dose: 100 mls/hr Documented By: ROHAN Omeprazole (Omeprazole 20 Mg/10 Ml Susp.Recon) 40 mg PO BID@0630,1630 [facility] Last Admin: 03/13/22 16:11 Dose: 40 mg Documented By: ROHAN Ondansetron HCl (Ondansetron Hcl 4 Mg/2 Ml Vial) 4 mg IVPUSH Q8H PRN PRN Reason: Nausea and Vomiting Pharmacy Consult (Consult Rx Perform Med Rec) 1 each MISCELLANE ONCE PRN PRN Reason: Consult order Sodium Chloride (0.9 % Sodium Chloride Flush 3 Ml Syringe) 3 ml IVFLUSH QSHIFT [facility] Last Admin: 03/13/22 15:29 Dose: 3 ml Documented By: ROHAN Sodium Chloride (Sodium Chloride Tab 1 Gm Tablet) 1 gm PO DAILY@1730 [facility] Last Admin: 03/12/22 18:25 Dose: 1 gm Documented By: ROOPA Vitamin D (Cholecalciferol (Vitamin D3) 25 Mcg Tablet) 125 mcg PO DAILY@1700 [facility] Last Admin: 03/13/22 15:28 Dose: 125 mcg Documented By: ROHAN Labs CBC & Chem 7: 03/13/22 03:22 03/13/22 03:22 Labs: Laboratory Results - last 24 hr 03/12/22 03/13/22 03/13/22 20:57 03:22 03:22 MCV 92.2 MCH 29.9 MCHC 32.4 RDW 13.4 Plt Count 190 MPV 11.8 Absolute Nucleated RBC 0.000 Nucleated RBC % (auto) 0.0 Anion Gap 14 Estim Creat Clear Calc 40.0 Estimated GFR 50 POC Glucose 153 H Random Glucose 170 H Calcium 8.2 L D Microbiology Microbiology Results: Microbiology 03/12/22 Unknown Urine Culture - Preliminary Urine clean catch - Urine robertson top Gram negative tong Assessment and Plan (1) Syncope: Status: Acute (2) Acute kidney injury: Status: Acute (3) DM type 1 (diabetes mellitus, type 1): Status: Acute (4) UTI (urinary tract infection): Status: Acute Plan 76 yo F who presents to the ED after a witnessed syncopal episode. She is found to have orthostatic hypotension with mild ABIGAIL. Urine with active sediment. .. Preliminary culture Gram-negative rods 1. Syncope (in backdrop of dysautonomia) -intolerant admitted drain -orthostatics improved with volume -likely related to UTI 2. UTI (preliminary GNR) -empiric ceftriaxone -await formal cultures 3. DMI -acceptable control on current therapies -lispro correctional scale Full code [place] Will require ongoing hospitalization for IV volume repletion and IV antibiotics to treat UTI which is likely cause of presenting symptom Quality Stroke Does the patient have a stroke diagnosis?: No VTE Prior VTE?: No VTE Risk Level:: Surgical - very high VTE Device Contraindication: Treatment Not Indicated VTE Drug Contraindication: N/A - Med Ordered
[2022-03-13] MEDS: Enoxaparin Sodium 40 MG/0.4 ML SYRINGE SUBCUT (17:56)
[2022-03-13] MEDS: cefTRIAXone sodium 1 GM in 0.9 % Sodium Chloride 50 ML IV (17:56)
[2022-03-13] MEDS: Sodium Chloride Tab 1 GM TABLET PO (17:56)
[2022-03-13 20:05] LABS: Glucose, Whole Blood 513 mg/dL (60-115)
[2022-03-13] MEDS: Insulin Lispro 100 UNIT/ML 3 ML VIAL 10 UNIT SUBCUT ×2 (20:37→22:00)
[2022-03-13 20:42] LABS: Glucose, Whole Blood 400 mg/dL (60-115)
[2022-03-13 20:43] LABS: Glucose, Whole Blood 541 mg/dL (60-115)
[2022-03-13] MEDS: Atorvastatin Calcium 10 MG TABLET PO (22:00)
[2022-03-13] MEDS: Insulin Regular, Human 100 UNIT/ML 3 ML VIAL 10 UNIT IVPUSH (22:18)
[2022-03-13 22:30] LABS: Glucose, Whole Blood 508 mg/dL (60-115)
[2022-03-13 23:45] LABS: Glucose, Whole Blood 392 mg/dL (60-115)
[2022-03-14] VITALS: BP 122/68; PULSE 102; RESP 15; TEMP 36.7; O2SAT 98
[2022-03-14] MEDS: 0.9 % Sodium Chloride 1,000 ML 100 ML IVCONT ×3 (00:25→19:50)
[2022-03-14 04:00] VITALS: BP 164/82; PULSE 93; RESP 15; TEMP 36.8; O2SAT 96
[2022-03-14 04:23] LABS: Glucose, Whole Blood 277 mg/dL (60-115)
[2022-03-14 07:02] LABS: MANUAL DIFF FLAG NO
[2022-03-14 07:05] LABS: Basophils Percent Auto 0.2 % (0-2); Eosinophils Percent Auto 0.2 % (0-4); Hematocrit 30.3 % (37.0-47.0); Hemoglobin 10.1 g/dl (12.0-16.0); Imm Gran Abs Auto 0.03 X10*3/uL (0.00-0.03); Imm Gran Pct Auto 0.4 % (0.0-0.4); Lymphocytes Absolute Auto 0.8 X10*3/uL (1.2-4.9); Mean Corpuscular HGB Conc 33.3 g/dl (31.0-35.0); Mean Corpuscular Hemoglobin 30.4 pg (27.0-33.0); Mean Corpuscular Volume 91.3 fL (80.0-98.0); Mean Platelet Volume 11.8 fL (9.4-12.3); Monocytes Absolute Auto 0.8 X10*3/uL (0.1-1.2); Neutrophils Absolute Auto 6.6 x10*3/uL (2.0-8.3); Neutrophils Percent Auto 79.2 % (45-73); Platelet Count 234 X10*3/uL (160-400); Red Blood Count 3.32 X10*6/uL (4.20-5.50); Red Cell Distribution Width 13.5 % (11.0-16.0); White Blood Count 8.4 X10*3/uL (4.8-10.8)
[2022-03-14 07:16] LABS: Glucose, Whole Blood 279 mg/dL (60-115)
[2022-03-14 07:26] LABS: Alanine Aminotransferase 15 U/L (0-31); Albumin Level 3.2 g/dL (3.5-5.0); Alkaline Phosphatase 111 U/L (39-117); Anion Gap 20 (12-20); Aspartate Amino Transferase 18 U/L (5-31); Bilirubin Total 0.6 mg/dL (0.0-1.0); Blood Urea Nitrogen 36 mg/dL (9-16); Carbon Dioxide 15 mmol/L (22-29); Chloride 103 mmol/L (96-108); Creatinine Clr Calc Pharmacy 34.2; Estimated Glomerular Filt Rate 42; Glucose Fasting 272 mg/dL (60-99); Potassium 4.3 mmol/L (3.3-5.1); Sodium 134 mmol/L (135-145); Total Protein 5.3 g/dL (6.5-8.0)
[2022-03-14] MEDS: Insulin Lispro 100 UNIT/ML 3 ML VIAL SUBCUT ×4 (07:55→20:25)
[2022-03-14] MEDS: Cyanocobalamin (Vitamin B-12) 500 MCG TABLET PO (07:56)
[2022-03-14] MEDS: 0.9 % Sodium Chloride Flush 3 ML SYRINGE IVFLUSH (07:56)
[2022-03-14] MEDS: Donepezil HCl 10 MG TABLET PO (07:56)
[2022-03-14 08:00] VITALS: BP 147/86; PULSE 98; RESP 20; TEMP 36.6; O2SAT 97
[2022-03-14 09:52] LABS: Glucose, Whole Blood 374 mg/dL (60-115)
[2022-03-14] MEDS: Insulin Lispro 100 UNIT/ML 3 ML VIAL 10 UNIT SUBCUT (10:24)
[2022-03-14 11:19] LABS: Glucose, Whole Blood 395 mg/dL (60-115)
[2022-03-14 11:56] VITALS: BP 137/56; PULSE 95; RESP 19; TEMP 36.7; O2SAT 98
[2022-03-14 12:32] LABS: Glucose, Whole Blood 338 mg/dL (60-115)
[2022-03-14] MEDS: Insulin Glargine,Hum.rec.anlog 100 UNIT/ML 10 ML VIAL 10 UNIT SUBCUT (12:34)
[2022-03-14] MEDS: Heparin Sodium,Porcine 5,000 UNIT/ML VIAL 5000 UNIT SUBCUT (12:34)
[2022-03-14] MEDS: Sodium Chloride Tab 1 GM TABLET 2 GM PO (12:47)
--- NOTE | 2022-03-14 14:49 | MHC.CM.PN ---
Per ROUNDS discussion, Patient is not yet medically cleared for dc r/t ECOLI UTI and uncontrolled BS; home is the goal for dc and CM will continue to follow.
[2022-03-14 15:16] VITALS: BP 153/65; PULSE 100; RESP 18; TEMP 36.7; O2SAT 97
--- NOTE | 2022-03-14 15:41 | HO.PM.IMPN ---
Subjective Subjective Date of Service: 03/14/22 Interval History: Remains somewhat orthostatic overall. No acute issues... Sugars poorly control secondary to UTI and changes from outpatient diet Review of Systems Denies chest pain Denies shortness of breath Denies nausea vomiting diarrhea Denies fever chills Physical Exam Vital Signs: Vital Signs: Last Vital Signs Temp 98.0 F 03/14/22 15:16 Pulse 100 03/14/22 15:16 Resp 18 03/14/22 15:16 BP 153/65 H 03/14/22 15:16 Pulse Ox 97 03/14/22 15:16 O2 Del Method 03/14/22 15:16 BMI result Body Mass Index 25.0 Const: Other: Awake ... Less confused today Resp: Other: Clear to auscultation bilaterally no rales rhonchi or wheezes Cardio: Other: No S4; positive S1-S2; no S3 murmurs rubs or gallops GI: Other: Soft nontender nondistended with normoactive bowel sounds Extrem: Other: No edema bilateral Objective Data Active Medications Acetaminophen (Acetaminophen 325 Mg Tablet) 650 mg PO Q6H PRN PRN Reason: Pain, Mild (Pain Scale 1-3) Atorvastatin Calcium (Atorvastatin Calcium 10 Mg Tablet) 10 mg PO BEDTIME [facility] Last Admin: 03/13/22 22:00 Dose: 10 mg Documented By: ANA M Cyanocobalamin (Cyanocobalamin (Vitamin B-12) 500 Mcg Tablet) 500 mcg PO DAILY [facility] Last Admin: 03/14/22 07:56 Dose: 500 mcg Documented By: OTTO Dextrose (Dextrose 50 % 25 Gm/50 Ml Syringe) 25 gm IVPUSH Q15M PRN; Protocol PRN Reason: per Hypoglycemia Standing Ord. Donepezil HCl (Donepezil Hcl 10 Mg Tablet) 10 mg PO DAILY [facility] Last Admin: 03/14/22 07:56 Dose: 10 mg Documented By: OTTO Enoxaparin Sodium (Enoxaparin Sodium 40 Mg/0.4 Ml Syringe) 40 mg SUBCUT Q24H [facility] Last Admin: 03/13/22 17:56 Dose: 40 mg Documented By: JENNIFER-SHOFA Glucose (Glucose Gel 15 Gm Gel..Gram.) 15 gm PO Q15M PRN; Protocol PRN Reason: per Hypoglycemia Standing Ord. Heparin Sodium (Porcine) (Heparin Sodium,Porcine 5,000 Unit/Ml Vial) 5,000 unit SUBCUT Q12H [facility] Last Admin: 03/14/22 12:34 Dose: 5,000 unit Documented By: OTTO Sodium Chloride (Ns) 1,000 mls @ 100 mls/hr IVCONT .Q10H [facility] Last Admin: 03/14/22 10:30 Dose: 100 mls/hr Documented By: OTTO Ceftriaxone Sodium 1 gm/ (Sodium Chloride) 50 mls @ 100 mls/hr IV Q24H [facility] Last Infusion: 03/13/22 18:31 Dose: 0 mls/hr Documented By: LORIFA Insulin Glargine (Insulin Glargine,Hum.Rec.Anlog 100 Unit/Ml 10 Ml Vial) 12 unit SUBCUT BEDTIME [facility] Insulin Human Lispro (Insulin Lispro 100 Unit/Ml 3 Ml Vial) 0 unit SUBCUT QIDACHS [facility]; Protocol Last Admin: 03/14/22 12:33 Dose: 8 unit Documented By: OTTO Omeprazole (Omeprazole 20 Mg/10 Ml Susp.Recon) 40 mg PO BID@0630,1630 [facility] Last Admin: 03/14/22 06:48 Dose: Not Given Documented By: ANA M Non-Admin Reason: Patient Asleep Ondansetron HCl (Ondansetron Hcl 4 Mg/2 Ml Vial) 4 mg IVPUSH Q8H PRN PRN Reason: Nausea and Vomiting Pharmacy Consult (Consult Rx Perform Med Rec) 1 each MISCELLANE ONCE PRN PRN Reason: Consult order Sodium Chloride (0.9 % Sodium Chloride Flush 3 Ml Syringe) 3 ml IVFLUSH QSHIFT [facility] Last Admin: 03/14/22 07:56 Dose: 3 ml Documented By: OTTO Sodium Chloride (Sodium Chloride Tab 1 Gm Tablet) 1 gm PO DAILY@1730 [facility] Last Admin: 03/13/22 17:56 Dose: 1 gm Documented By: LORIFA Sodium Chloride (Sodium Chloride Tab 1 Gm Tablet) 2 gm PO DAILY [facility] Last Admin: 03/14/22 12:47 Dose: 2 gm Documented By: OTTO Vitamin D (Cholecalciferol (Vitamin D3) 25 Mcg Tablet) 125 mcg PO DAILY@1700 [facility] Last Admin: 03/13/22 15:28 Dose: 125 mcg Documented By: ROHAN Labs CBC & Chem 7: 03/14/22 06:30 03/14/22 06:30 Labs: Laboratory Results - last 24 hr 03/13/22 03/13/22 03/13/22 18:18 19:51 20:37 MCV MCH MCHC RDW Plt Count MPV Immature Gran % (Auto) Neut % (Auto) Lymph % (Auto) [place] % (Auto) Eos % (Auto) Baso % (Auto) Lymph # (Auto) [place] # (Auto) Eos # (Auto) Baso # (Auto) Abs Immat Gran (auto) Absolute Neuts (auto) Absolute Nucleated RBC Nucleated RBC % (auto) Anion Gap Estim Creat Clear Calc Estimated GFR POC Glucose 400 H* 513 H* 541 H* Fasting Glucose Calcium Total Bilirubin AST ALT Alkaline Phosphatase Total Protein Albumin 03/13/22 03/13/22 03/14/22 21:44 23:41 01:41 MCV MCH MCHC RDW Plt Count MPV Immature Gran % (Auto) Neut % (Auto) Lymph % (Auto) [place] % (Auto) Eos % (Auto) Baso % (Auto) Lymph # (Auto) [place] # (Auto) Eos # (Auto) Baso # (Auto) Abs Immat Gran (auto) Absolute Neuts (auto) Absolute Nucleated RBC Nucleated RBC % (auto) Anion Gap Estim Creat Clear Calc Estimated GFR POC Glucose 508 H* 392 H* 277 H Fasting Glucose Calcium Total Bilirubin AST ALT Alkaline Phosphatase Total Protein Albumin 03/14/22 03/14/22 03/14/22 06:30 06:30 07:11 MCV 91.3 MCH 30.4 MCHC 33.3 RDW 13.5 Plt Count 234 MPV 11.8 Immature Gran % (Auto) 0.4 Neut % (Auto) 79.2 H Lymph % (Auto) 10.0 L [place] % (Auto) 10.0 Eos % (Auto) 0.2 Baso % (Auto) 0.2 Lymph # (Auto) 0.8 L [place] # (Auto) 0.8 Eos # (Auto) 0.0 Baso # (Auto) 0.0 Abs Immat Gran (auto) 0.03 Absolute Neuts (auto) 6.6 Absolute Nucleated RBC 0.000 Nucleated RBC % (auto) 0.0 Anion Gap 20 Estim Creat Clear Calc 34.2 Estimated GFR 42 POC Glucose 279 H Fasting Glucose 272 H Calcium 8.0 L Total Bilirubin 0.6 AST 18 D ALT 15 Alkaline Phosphatase 111 D Total Protein 5.3 L Albumin 3.2 L 03/14/22 03/14/22 03/14/22 09:48 11:11 12:29 MCV MCH MCHC RDW Plt Count MPV Immature Gran % (Auto) Neut % (Auto) Lymph % (Auto) [place] % (Auto) Eos % (Auto) Baso % (Auto) Lymph # (Auto) [place] # (Auto) Eos # (Auto) Baso # (Auto) Abs Immat Gran (auto) Absolute Neuts (auto) Absolute Nucleated RBC Nucleated RBC % (auto) Anion Gap Estim Creat Clear Calc Estimated GFR POC Glucose 374 H* 395 H* 338 H Fasting Glucose Calcium Total Bilirubin AST ALT Alkaline Phosphatase Total Protein Albumin Microbiology Microbiology Results: Microbiology 03/12/22 Unknown Urine Culture - Final Urine clean catch - Urine robertson top Klebsiella pneumoniae Assessment and Plan (1) Syncope: Status: Acute (2) UTI (urinary tract infection): Status: Acute (3) DM type 1 (diabetes mellitus, type 1): Status: Acute Plan 76 yo F who presents to the ED after a witnessed syncopal episode. She is found to have orthostatic hypotension with mild ABIGAIL. Urine with active sediment. .. Preliminary culture Gram-negative rods 1. Syncope (in backdrop of dysautonomia) -intolerant of midodrine -orthostatics improved with volume -likely related to UTI 2. UTI (preliminary GNR) -empiric ceftriaxone -await formal cultures 3. DMI -poor control; extremely difficult to replicate outpatient diet. Discussed at length with . In the end, she will receive 2 cans of Glucerna 3 times a day. Very similar to outpatient diet. Will adjust insulin and hopefully discharge to home tomorrow were can more adequately control her intake -add additional dose of Lantus and continue with Lantus at HS and lispro sliding scale Full code Lovenox Will require ongoing hospitalization for IV volume repletion and IV antibiotics to treat UTI which is likely cause of presenting symptom Quality Stroke Does the patient have a stroke diagnosis?: No VTE Prior VTE?: No VTE Risk Level:: Surgical - very high VTE Device Contraindication: Treatment Not Indicated VTE Drug Contraindication: N/A - Med Ordered
[2022-03-14 16:02] LABS: Glucose, Whole Blood 254 mg/dL (60-115)
[2022-03-14] MEDS: cefTRIAXone sodium 1 GM in 0.9 % Sodium Chloride 50 ML IV (16:46)
[2022-03-14] MEDS: Cholecalciferol (Vitamin D3) 25 MCG TABLET 125 MCG PO (16:46)
[2022-03-14] MEDS: Sodium Chloride Tab 1 GM TABLET PO (16:46)
[2022-03-14 17:07] LABS: Glucose, Whole Blood 343 mg/dL (60-115)
[2022-03-14] MEDS: Enoxaparin Sodium 40 MG/0.4 ML SYRINGE SUBCUT (17:26)
[2022-03-14 19:08] VITALS: BP 143/70; PULSE 101; RESP 18; TEMP 37.4; O2SAT 95
[2022-03-14 19:31] LABS: Glucose, Whole Blood 320 mg/dL (60-115)
[2022-03-14] MEDS: Insulin Glargine,Hum.rec.anlog 100 UNIT/ML 10 ML VIAL 12 UNIT SUBCUT (20:25)
[2022-03-14] MEDS: Atorvastatin Calcium 10 MG TABLET PO (20:27)
[2022-03-15] VITALS (8 sets, daily range): BP systolic 120–192; BP diastolic 58–87; PULSE 56–108; RESP 15–20; TEMP 36.3–37.2; O2SAT 95–96
[2022-03-15] MEDS: Heparin Sodium,Porcine 5,000 UNIT/ML VIAL 5000 UNIT SUBCUT (00:39)
[2022-03-15] MEDS: 0.9 % Sodium Chloride 1,000 ML 100 ML IVCONT (06:08)
[2022-03-15 07:02] LABS: MANUAL DIFF FLAG NO
[2022-03-15 07:09] LABS: Basophils Percent Auto 0.3 % (0-2); Eosinophils Absolute Auto 0.1 X10*3/uL (0.0-0.4); Eosinophils Percent Auto 0.7 % (0-4); Hematocrit 31.8 % (37.0-47.0); Hemoglobin 10.6 g/dl (12.0-16.0); Imm Gran Abs Auto 0.03 X10*3/uL (0.00-0.03); Imm Gran Pct Auto 0.4 % (0.0-0.4); Lymphocytes Absolute Auto 1.4 X10*3/uL (1.2-4.9); Lymphocytes Percent Auto 21.1 % (20-40); Mean Corpuscular HGB Conc 33.3 g/dl (31.0-35.0); Mean Corpuscular Hemoglobin 29.6 pg (27.0-33.0); Mean Corpuscular Volume 88.8 fL (80.0-98.0); Mean Platelet Volume 11.3 fL (9.4-12.3); Monocytes Absolute Auto 0.7 X10*3/uL (0.1-1.2); Monocytes Percent Auto 10.8 % (2-11); Neutrophils Absolute Auto 4.5 x10*3/uL (2.0-8.3); Neutrophils Percent Auto 66.7 % (45-73); Platelet Count 229 X10*3/uL (160-400); Red Blood Count 3.58 X10*6/uL (4.20-5.50); Red Cell Distribution Width 13.8 % (11.0-16.0); White Blood Count 6.7 X10*3/uL (4.8-10.8)
[2022-03-15 07:09] LABS: Glucose, Whole Blood 108 mg/dL (60-115)
[2022-03-15 07:52] LABS: Alanine Aminotransferase 13 U/L (0-31); Albumin Level 3.2 g/dL (3.5-5.0); Alkaline Phosphatase 101 U/L (39-117); Anion Gap 12 (12-20); Aspartate Amino Transferase 15 U/L (5-31); Bilirubin Total 0.3 mg/dL (0.0-1.0); Blood Urea Nitrogen 24 mg/dL (9-16); Calcium 7.8 mg/dL (8.4-10.2); Carbon Dioxide 20 mmol/L (22-29); Chloride 106 mmol/L (96-108); Creatinine Clr Calc Pharmacy 51.7; Estimated Glomerular Filt Rate > 60; Glucose Fasting 117 mg/dL (60-99); Sodium 135 mmol/L (135-145); Total Protein 5.3 g/dL (6.5-8.0)
[2022-03-15 08:35] LABS: Potassium 2.9 mmol/L (3.3-5.1)
[2022-03-15] MEDS: Cyanocobalamin (Vitamin B-12) 500 MCG TABLET PO (10:40)
[2022-03-15] MEDS: Sodium Chloride Tab 1 GM TABLET 2 GM PO (10:40)
[2022-03-15] MEDS: Potassium Chloride/H20 10 MEQ/100 ML PIGGYBACK 100 MEQ IV ×4 (10:41→16:16)
[2022-03-15] MEDS: Donepezil HCl 10 MG TABLET PO (10:41)
[2022-03-15] MEDS: Potassium Chloride Packet 20 MEQ PACKET 40 MEQ PO ×2 (10:41→20:52)
[2022-03-15 11:00] LABS: Glucose, Whole Blood 304 mg/dL (60-115)
[2022-03-15] MEDS: Insulin Lispro 100 UNIT/ML 3 ML VIAL SUBCUT ×3 (12:19→20:53)
--- NOTE | 2022-03-15 12:28 | P.PNIM_ITS ---
Subjective Subjective Date of Service: 03/15/22 Interval History: Remains somewhat orthostatic overall. No acute issues... Sugars poorly control secondary to UTI and changes from outpatient diet Review of Systems Denies chest pain Denies shortness of breath Denies nausea vomiting diarrhea Denies fever chills Physical Exam Vital Signs: Vital Signs: Last Vital Signs Temp 98.5 F 03/15/22 11:47 Pulse 108 H 03/15/22 11:47 Resp 20 03/15/22 11:47 BP 162/80 H 03/15/22 11:47 Pulse Ox 95 03/15/22 11:47 O2 Del Method 03/15/22 11:47 BMI result Body Mass Index 25.0 Const: Other: Awake ... Less confused today Resp: Other: Clear to auscultation bilaterally no rales rhonchi or wheezes Cardio: Other: No S4; positive S1-S2; no S3 murmurs rubs or gallops GI: Other: Soft nontender nondistended with normoactive bowel sounds Extrem: Other: No edema bilateral Objective Data Active Medications Acetaminophen (Acetaminophen 325 Mg Tablet) 650 mg PO Q6H PRN PRN Reason: Pain, Mild (Pain Scale 1-3) Atorvastatin Calcium (Atorvastatin Calcium 10 Mg Tablet) 10 mg PO BEDTIME [facility] Last Admin: 03/14/22 20:27 Dose: 10 mg Documented By: MARGI Cyanocobalamin (Cyanocobalamin (Vitamin B-12) 500 Mcg Tablet) 500 mcg PO DAILY [facility] Last Admin: 03/15/22 10:40 Dose: 500 mcg Documented By: ALEXANDRA Dextrose (Dextrose 50 % 25 Gm/50 Ml Syringe) 25 gm IVPUSH Q15M PRN; Protocol PRN Reason: per Hypoglycemia Standing Ord. Donepezil HCl (Donepezil Hcl 10 Mg Tablet) 10 mg PO DAILY [facility] Last Admin: 03/15/22 10:41 Dose: 10 mg Documented By: ALEXANDRA Enoxaparin Sodium (Enoxaparin Sodium 40 Mg/0.4 Ml Syringe) 40 mg SUBCUT Q24H [facility] Last Admin: 03/14/22 17:26 Dose: 40 mg Documented By: JENNIFER-SOFFA Glucose (Glucose Gel 15 Gm Gel..Gram.) 15 gm PO Q15M PRN; Protocol PRN Reason: per Hypoglycemia Standing Ord. Sodium Chloride (Ns) 1,000 mls @ 100 mls/hr IVCONT .Q10H [facility] Last Infusion: 03/15/22 10:45 Dose: 0 mls/hr Documented By: ALEXANDRA Ceftriaxone Sodium 1 gm/ (Sodium Chloride) 50 mls @ 100 mls/hr IV Q24H [facility] Last Infusion: 03/14/22 17:29 Dose: 0 mls/hr Documented By: RICHA Potassium Chloride () 10 meq in 100 mls @ 100 mls/hr IV Q1H [facility] Stop: 03/15/22 14:14 Last Admin: 03/15/22 12:20 Dose: 100 mls/hr Documented By: ALEXANDRA Insulin Glargine (Insulin Glargine,Hum.Rec.Anlog 100 Unit/Ml 10 Ml Vial) 12 unit SUBCUT BEDTIME [facility] Last Admin: 03/14/22 20:25 Dose: 12 unit Documented By: MARGI Insulin Human Lispro (Insulin Lispro 100 Unit/Ml 3 Ml Vial) 0 unit SUBCUT QIDACHS [facility]; Protocol Last Admin: 03/15/22 12:19 Dose: 8 unit Documented By: ALEXANDRA Omeprazole (Omeprazole 20 Mg/10 Ml Susp.Recon) 40 mg PO BID@0630,1630 [facility] Last Admin: 03/15/22 06:09 Dose: 40 mg Documented By: DEWAYNE Ondansetron HCl (Ondansetron Hcl 4 Mg/2 Ml Vial) 4 mg IVPUSH Q8H PRN PRN Reason: Nausea and Vomiting Pharmacy Consult (Consult Rx Perform Med Rec) 1 each MISCELLANE ONCE PRN PRN Reason: Consult order Potassium Chloride (Potassium Chloride Packet 20 Meq Packet) 40 meq PO BID [facility] Last Admin: 03/15/22 10:41 Dose: 40 meq Documented By: ALEXANDRA Sodium Chloride (0.9 % Sodium Chloride Flush 3 Ml Syringe) 3 ml IVFLUSH QSHIFT [facility] Last Admin: 03/15/22 10:41 Dose: Not Given Documented By: ALEXANDRA Non-Admin Reason: IV Running Sodium Chloride (Sodium Chloride Tab 1 Gm Tablet) 1 gm PO DAILY@1730 [facility] Last Admin: 03/14/22 16:46 Dose: 1 gm Documented By: RICHA Sodium Chloride (Sodium Chloride Tab 1 Gm Tablet) 2 gm PO DAILY [facility] Last Admin: 03/15/22 10:40 Dose: 2 gm Documented By: ALEXANDRA Vitamin D (Cholecalciferol (Vitamin D3) 25 Mcg Tablet) 125 mcg PO DAILY@1700 [facility] Last Admin: 03/14/22 16:46 Dose: 125 mcg Documented By: RICHA Labs CBC & Chem 7: 03/15/22 06:31 03/15/22 06:31 Labs: Laboratory Results - last 24 hr 03/14/22 03/14/22 03/14/22 12:29 15:58 17:03 MCV MCH MCHC RDW Plt Count MPV Immature Gran % (Auto) Neut % (Auto) Lymph % (Auto) [place] % (Auto) Eos % (Auto) Baso % (Auto) Lymph # (Auto) [place] # (Auto) Eos # (Auto) Baso # (Auto) Abs Immat Gran (auto) Absolute Neuts (auto) Absolute Nucleated RBC Nucleated RBC % (auto) Anion Gap Estim Creat Clear Calc Estimated GFR POC Glucose 338 H 254 H 343 H Fasting Glucose Calcium Total Bilirubin AST ALT Alkaline Phosphatase Total Protein Albumin 03/14/22 03/15/22 03/15/22 19:28 06:31 06:31 MCV 88.8 MCH 29.6 MCHC 33.3 RDW 13.8 Plt Count 229 MPV 11.3 Immature Gran % (Auto) 0.4 Neut % (Auto) 66.7 Lymph % (Auto) 21.1 [place] % (Auto) 10.8 Eos % (Auto) 0.7 Baso % (Auto) 0.3 Lymph # (Auto) 1.4 [place] # (Auto) 0.7 Eos # (Auto) 0.1 Baso # (Auto) 0.0 Abs Immat Gran (auto) 0.03 Absolute Neuts (auto) 4.5 Absolute Nucleated RBC 0.000 Nucleated RBC % (auto) 0.0 Anion Gap 12 Estim Creat Clear Calc 51.7 Estimated GFR > 60 POC Glucose 320 H Fasting Glucose 117 H Calcium 7.8 L Total Bilirubin 0.3 AST 15 ALT 13 Alkaline Phosphatase 101 Total Protein 5.3 L Albumin 3.2 L 03/15/22 03/15/22 07:03 10:54 MCV MCH MCHC RDW Plt Count MPV Immature Gran % (Auto) Neut % (Auto) Lymph % (Auto) [place] % (Auto) Eos % (Auto) Baso % (Auto) Lymph # (Auto) [place] # (Auto) Eos # (Auto) Baso # (Auto) Abs Immat Gran (auto) Absolute Neuts (auto) Absolute Nucleated RBC Nucleated RBC % (auto) Anion Gap Estim Creat Clear Calc Estimated GFR POC Glucose 108 304 H Fasting Glucose Calcium Total Bilirubin AST ALT Alkaline Phosphatase Total Protein Albumin Microbiology Microbiology Results: Microbiology 03/12/22 Unknown Urine Culture - Final Urine clean catch - Urine robertson top Klebsiella pneumoniae Assessment and Plan (1) Syncope: Status: Acute (2) UTI (urinary tract infection): Status: Acute (3) DM type 1 (diabetes mellitus, type 1): Status: Acute Plan 76 yo F who presents to the ED after a witnessed syncopal episode. She is found to have orthostatic hypotension with mild ABIGAIL. Urine with active sediment. .. Preliminary culture Gram-negative rods 1. Syncope (in backdrop of dysautonomia) -intolerant of midodrine -orthostatics improved with volume -likely related to UTI 2. UTI (preliminary GNR...Klebsiella)) -empiric ceftriaxone...ceftin upon DC -await formal cultures 3. DMI -back to baseline control with 2 Glucerna cans t.i.d. - continue with Lantus at HS and lispro sliding scale -replete potassium Full code Lovenox Will require ongoing hospitalization for IV volume repletion of potassium and IV antibiotics to treat UTI which is likely cause of presenting symptom Quality Stroke Does the patient have a stroke diagnosis?: No VTE Prior VTE?: No VTE Risk Level:: Surgical - very high VTE Device Contraindication: Treatment Not Indicated VTE Drug Contraindication: N/A - Med Ordered
[2022-03-15 17:26] LABS: Glucose, Whole Blood 267 mg/dL (60-115)
[2022-03-15] MEDS: cefTRIAXone sodium 1 GM in 0.9 % Sodium Chloride 50 ML IV (17:38)
[2022-03-15] MEDS: Enoxaparin Sodium 40 MG/0.4 ML SYRINGE SUBCUT (17:38)
[2022-03-15] MEDS: Sodium Chloride Tab 1 GM TABLET PO (17:39)
[2022-03-15] MEDS: Cholecalciferol (Vitamin D3) 25 MCG TABLET 125 MCG PO (17:39)
[2022-03-15 20:13] LABS: Glucose, Whole Blood 259 mg/dL (60-115)
[2022-03-15] MEDS: Atorvastatin Calcium 10 MG TABLET PO (20:53)
[2022-03-15] MEDS: Insulin Glargine,Hum.rec.anlog 100 UNIT/ML 10 ML VIAL 12 UNIT SUBCUT (20:53)
[2022-03-15] MEDS: 0.9 % Sodium Chloride Flush 3 ML SYRINGE IVFLUSH (20:53)
[2022-03-16] MEDS: 0.9 % Sodium Chloride 1,000 ML 100 ML IVCONT (01:48)
[2022-03-16 03:25] VITALS: BP 146/76; PULSE 77; RESP 17; TEMP 36.9; O2SAT 96
[2022-03-16 06:38] LABS: MANUAL DIFF FLAG NO
[2022-03-16 06:47] LABS: Basophils Percent Auto 0.5 % (0-2); Eosinophils Absolute Auto 0.1 X10*3/uL (0.0-0.4); Eosinophils Percent Auto 1.4 % (0-4); Hematocrit 30.2 % (37.0-47.0); Hemoglobin 10.3 g/dl (12.0-16.0); Imm Gran Abs Auto 0.01 X10*3/uL (0.00-0.03); Imm Gran Pct Auto 0.2 % (0.0-0.4); Lymphocytes Absolute Auto 1.5 X10*3/uL (1.2-4.9); Lymphocytes Percent Auto 34.5 % (20-40); Mean Corpuscular HGB Conc 34.1 g/dl (31.0-35.0); Mean Corpuscular Hemoglobin 30.4 pg (27.0-33.0); Mean Corpuscular Volume 89.1 fL (80.0-98.0); Mean Platelet Volume 11.3 fL (9.4-12.3); Monocytes Absolute Auto 0.6 X10*3/uL (0.1-1.2); Monocytes Percent Auto 14.2 % (2-11); Neutrophils Absolute Auto 2.1 x10*3/uL (2.0-8.3); Neutrophils Percent Auto 49.2 % (45-73); Platelet Count 190 X10*3/uL (160-400); Red Blood Count 3.39 X10*6/uL (4.20-5.50); White Blood Count 4.2 X10*3/uL (4.8-10.8)
[2022-03-16 07:17] LABS: Alanine Aminotransferase 12 U/L (0-31); Albumin Level 2.8 g/dL (3.5-5.0); Alkaline Phosphatase 83 U/L (39-117); Anion Gap 8 (12-20); Aspartate Amino Transferase 16 U/L (5-31); Bilirubin Total < 0.2 mg/dL (0.0-1.0); Blood Urea Nitrogen 19 mg/dL (9-16); Calcium 7.6 mg/dL (8.4-10.2); Carbon Dioxide 25 mmol/L (22-29); Chloride 108 mmol/L (96-108); Creatinine Clr Calc Pharmacy 58.1; Estimated Glomerular Filt Rate > 60; Glucose Fasting 73 mg/dL (60-99); Potassium 3.7 mmol/L (3.3-5.1); Sodium 137 mmol/L (135-145); Total Protein 4.7 g/dL (6.5-8.0)
[2022-03-16 07:49] VITALS: BP 154/81; PULSE 80; RESP 18; TEMP 36.6; O2SAT 95
[2022-03-16 07:51] LABS: Glucose, Whole Blood 58 mg/dL (60-115)
[2022-03-16 08:10] LABS: Glucose, Whole Blood 92 mg/dL (60-115)
--- NOTE | 2022-03-16 09:06 | MHC.CM.PN ---
CM addressed IMM with Patient and her at bedside. Original has been given to them and a copy has been placed on the chart.
--- NOTE | 2022-03-16 10:17 | P.DS_ITS ---
DS: Providers Provider Date of Service: 03/16/22 Date of admission: 03/12/22 13:15 Date of discharge: 03/16/22 Primary care physician: Bob Stephenson MD DS: Diagnosis Discharge Diagnosis (1) Syncope: Status: Acute (2) UTI (urinary tract infection): Status: Acute (3) DM type 1 (diabetes mellitus, type 1): Status: Acute DS: Summary Hospital Course Hospital Course: 76 yo F with a PMH of orthostatic hypotension (and suspected supine HTN -- previously on midodrine, taken off due to elevated BPs), DM type 1, Dementia, Dysphagia secondary to esophageal strictures / ucleration who presented to [facility] after a witness syncopal episode by her . The history is obtained from the as the patient is an unreliable historian. Per the , the pa tieirving went to her commode over night (near the bed) and did not have any pre- syncopal symptoms. While on the commode (unclear if there was any straining or not) the patient showed pre-syncopal symptoms and when she stood up, she appeared to be already losing consciousness and after sitting back down, she did have LOC lasting about 5 minutes. Hence, the called EMS and she was brought here. Hospital Course Patient admitted to telemetry; IV fluids for volume repletion. Treated with empiric ceftriaxone awaiting urine culture. Urine culture grew Klebsiella sensitive to ceftriaxone. During hospitalization patient's sugars were mildly elevated however well controlled with sliding scale. She was ultimately maintained on liquid diet consisting of Glucerna 2 cans t.i.d. in keeping with outpatient recommendations secondary to severe stricture. On the day of discharge sugars are stable, bicarb is 25 and she is medically acceptable for return to home. She will complete a course of Ceftin orally and follow-up with PCP as scheduled. is present and is agreement with plan Time Spent with Patient Time attestation: Total time spent providing and/or coordinating discharge services: Discharge coordination time: Greater than 30 minutes Quality: Safe Use of Opioids Does Pt have an Active Cancer Diagnosis on the Problem List?: No Quality: Stroke Does the patient have a stroke diagnosis?: No Physical Exam Vital Signs: Vital Signs: Last Vital Signs Temp 97.8 F 03/16/22 07:49 Pulse 80 03/16/22 07:49 Resp 18 03/16/22 07:49 BP 154/81 H 03/16/22 07:49 Pulse Ox 95 03/16/22 07:49 O2 Del Method 03/16/22 07:49 BMI result Body Mass Index 25.0 Const: Other: Awake ... Less confused today Resp: Other: Clear to auscultation bilaterally no rales rhonchi or wheezes Cardio: Other: No S4; positive S1-S2; no S3 murmurs rubs or gallops GI: Other: Soft nontender nondistended with normoactive bowel sounds Extrem: Other: No edema bilateral DS: Data Data Completed and Pending Completed studies during hospitalization [Text1]: Procedures Insertion of Endotracheal Airway into Trachea, Via Natural or Artificial Opening Endoscopic (10/14/21) Introduction of Vasopressor into Peripheral Vein, Percutaneous Approach (10/14/21) Respiratory Ventilation, Less than 24 Consecutive Hours (10/14/21) Labs on day of discharge: Laboratory Results - last 24 hr 03/15/22 03/15/22 03/15/22 10:54 16:40 20:10 WBC RBC Hgb Hct MCV MCH MCHC RDW Plt Count MPV Immature Gran % (Auto) Neut % (Auto) Lymph % (Auto) Independence % (Auto) Eos % (Auto) Baso % (Auto) Lymph # (Auto) [place] # (Auto) Eos # (Auto) Baso # (Auto) Abs Immat Gran (auto) Absolute Neuts (auto) Absolute Nucleated RBC Nucleated RBC % (auto) Sodium Potassium Chloride Carbon Dioxide Anion Gap BUN Creatinine Estim Creat Clear Calc Estimated GFR POC Glucose 304 H 267 H 259 H Fasting Glucose Calcium Total Bilirubin AST ALT Alkaline Phosphatase Total Protein Albumin 03/16/22 03/16/22 03/16/22 06:18 06:18 07:45 WBC 4.2 L RBC 3.39 L Hgb 10.3 L Hct 30.2 L MCV 89.1 MCH 30.4 MCHC 34.1 RDW 14.0 Plt Count 190 MPV 11.3 Immature Gran % (Auto) 0.2 Neut % (Auto) 49.2 Lymph % (Auto) 34.5 Independence % (Auto) 14.2 H Eos % (Auto) 1.4 Baso % (Auto) 0.5 Lymph # (Auto) 1.5 Independence # (Auto) 0.6 Eos # (Auto) 0.1 Baso # (Auto) 0.0 Abs Immat Gran (auto) 0.01 Absolute Neuts (auto) 2.1 Absolute Nucleated RBC 0.000 Nucleated RBC % (auto) 0.0 Sodium 137 Potassium 3.7 D Chloride 108 Carbon Dioxide 25 Anion Gap 8 L BUN 19 H Creatinine 0.73 Estim Creat Clear Calc 58.1 Estimated GFR > 60 POC Glucose 58 L* Fasting Glucose 73 Calcium 7.6 L Total Bilirubin < 0.2 AST 16 ALT 12 Alkaline Phosphatase 83 Total Protein 4.7 L Albumin 2.8 L 03/16/22 08:07 WBC RBC Hgb Hct MCV MCH MCHC RDW Plt Count MPV Immature Gran % (Auto) Neut % (Auto) Lymph % (Auto) Independence % (Auto) Eos % (Auto) Baso % (Auto) Lymph # (Auto) Independence # (Auto) Eos # (Auto) Baso # (Auto) Abs Immat Gran (auto) Absolute Neuts (auto) Absolute Nucleated RBC Nucleated RBC % (auto) Sodium Potassium Chloride Carbon Dioxide Anion Gap BUN Creatinine Estim Creat Clear Calc Estimated GFR POC Glucose 92 Fasting Glucose Calcium Total Bilirubin AST ALT Alkaline Phosphatase Total Protein Albumin Discharge Plan Discharge Patient Disposition: Home Health Service Discharge Diagnosis: UTI(Klebsiella) Referrals: Bob Stephenson MD [Primary Care Provider] - 1 Week Discharge Medications: New insulin glargine [Lantus Solostar U-100 Insulin] 100 unit/mL (3 mL) insulin pen 12 unit subcut .qhs Qty: 15 0RF cefuroxime axetil 500 mg tablet 500 mg PO BID 3 Days Qty: 6 0RF Continued sodium chloride 1 gram tablet 2 tab PO DAILY insulin lispro [Humalog U-100 Insulin] 100 unit/mL Solution 1 sliding scale dose SUBCUT TIDAC Protocol: Insulin Correction Scale Less than or equal to 110 ---- Give (units): 0 111 to 150 Give (units): 0 151 to 200 Give (units): 2 201 to 250 Give (units): 4 251 to 300 Give (units): 6 301 to 350 Give (units): 8 Greater than 350 Give (units): 10 Call MD if Blood Glucose > : 350 sodium chloride 1 gram Tablet 1,000 mg PO DAILY@1730 omeprazole magnesium 10 mg susp,delayed release for recon 40 mg PO BID donepezil 10 mg Tablet 10 mg PO DAILY simvastatin 20 mg Tablet 20 mg PO BEDTIME Humalog U-100 Insulin 100 unit/mL Cartridge 4 unit SUBCUT DAILY Humalog U-100 Insulin 100 unit/mL Cartridge 7 unit SUBCUT DAILY@1200 Humalog U-100 Insulin 100 unit/mL Cartridge 2 unit SUBCUT QPM methenamine hippurate 1 gram Tablet 1 g PO BID@0900,1700 cyanocobalamin (vitamin B-12) 500 mcg Tablet 500 mcg PO DAILY cholecalciferol (vitamin D3) [Vitamin D3] 125 mcg (5,000 unit) Tablet 125 mcg PO DAILY@1700 Culturelle 10 billion cell Capsule 1 cap PO BID Discontinued insulin glargine [Lantus Solostar U-100 Insulin] 100 unit/mL (3 mL) Insulin Pen 21 unit SUBCUT BEDTIME Discharge Orders: Discharge Order (Routine); Ordered 03/16/22 Ordered By: Dhaval Valverde Diet: Advance to usual diet Activity on Discharge: As tolerated Stand Alone Forms: Patient Portal Discharge page Care Plan Goals: Take Ceftin 500 mg twice daily for 3 days. Resume all meds as before hospital Health Concerns: Resume diet as outlined by your pensionholder information clerk Plan of Treatment: Call for repeat blood work including potassium within 1 week Assessment: See discharge summary
--- NOTE | 2022-03-16 10:25 | MHC.CM.PN ---
Patient has been medically cleared for dc to home today, self care. IMM addressed this morning. Patient is part of [facility] .
[2022-03-16] MEDS: Donepezil HCl 10 MG TABLET PO (11:11)
[2022-03-16] MEDS: Sodium Chloride Tab 1 GM TABLET 2 GM PO (11:12)
[2022-03-16] MEDS: Cyanocobalamin (Vitamin B-12) 500 MCG TABLET PO (11:12)
[2022-03-16] MEDS: Potassium Chloride Packet 20 MEQ PACKET 40 MEQ PO (11:12)
[2022-03-16 12:00] VITALS: BP 162/89; PULSE 93; RESP 18; TEMP 36.6; O2SAT 95
[2022-03-16 12:13] LABS: Glucose, Whole Blood 282 mg/dL (60-115)
[2022-03-16] MEDS: Insulin Lispro 100 UNIT/ML 3 ML VIAL SUBCUT (12:17)
[2022-03-16 13:07] LABS: Glucose, Whole Blood 306 mg/dL (60-115)
== END 2022-03-16 13:55 | disposition home or self-care (01) | DRG 690 ==
LOC: HO.ED 12:55 → HO.EDOVER 16:42 → HO.IMC 03-13 17:37 → HO.EDOVER 03-15 23:00
PROVIDERS: Nurse Practitioner Family; Admitting Provider Family Medicine; Emergency Provider Emergency Medicine Emergency Medical Services; PCP Internal Medicine Rheumatology; Visit Provider Hospitalist
DX: N39.0 Urinary tract infection, site not specified (principal); K22.10 Ulcer of esophagus without bleeding; N17.9 Acute kidney failure, unspecified; I12.9 Hypertensive chronic kidney disease with stage 1 through stage 4 chronic kidney disease, or unspecified chronic kidney disease; N18.30 Chronic kidney disease, stage 3 unspecified; E10.22 Type 1 diabetes mellitus with diabetic chronic kidney disease; I25.10 Atherosclerotic heart disease of native coronary artery without angina pectoris; E03.9 Hypothyroidism, unspecified; K21.9 Gastro-esophageal reflux disease without esophagitis; G30.9 Alzheimer's disease, unspecified; F02.80 Dementia in other diseases classified elsewhere, unspecified severity, without behavioral disturbance, psychotic disturbance, mood disturbance, and anxiety; B96.1 Klebsiella pneumoniae [K. pneumoniae] as the cause of diseases classified elsewhere; E87.5 Hyperkalemia; K22.2 Esophageal obstruction; E10.40 Type 1 diabetes mellitus with diabetic neuropathy, unspecified; G90.1 Familial dysautonomia [Riley-Day]; Z86.16 Personal history of COVID-19; Z20.822 Contact with and (suspected) exposure to COVID-19; Z88.2 Allergy status to sulfonamides; Z88.8 Allergy status to other drugs, medicaments and biological substances; Z79.4 Long term (current) use of insulin; Z79.899 Other long term (current) drug therapy
CPT/HCPCS: 36415; 70450; 71046; 80048; 80053; 81001; 81003; 82947; 83735; 83880; 84484; 85025; 85027; 87086; 87088; 87186; 87635; 93005; 96360; 97162; 99285; J0696; J1650

== ENCOUNTER 2022-05-11 08:14 | Outpatient (REF) | payer OTHER, SELFPAY ==
--- NOTE | ~2022-05-11 | FL_ITS ---
EXAMINATION: FL BARIUM SWALLOW CLINICAL INFORMATION: Dyskinesia or of the esophagus. History distal narrowing. COMPARISON: Remote barium swallow 10/29/2008. TECHNIQUE: Exam tailored to patient capabilities. Barium swallow examination is performed using fluoroscopic evaluation in addition to multiple fluoroscopic spot views, including cine images during swallowing. The patient is imaged upright/sitting. Thin barium sulfate suspension as well as a barium tablet was used. Fluoroscopy time: 1.3 minutes DAP: 1.62 Gycm2 Images: 32 FINDINGS: Swallowing function is normal and there is no aspiration. The cervical esophagus has no web or diverticulum or stricture. The cervical thoracic junction appears normal. There is decreased primary esophageal peristalsis along with tertiary contractions consistent with presbyesophagus. There is slower transit of swallowed barium from the mouth to the stomach. The visualized mucosal surfaces appear smooth. There is no ulceration or focal tight stricture. There is borderline smooth narrowing at junction of the tubular and vestibular esophagus. Barium pill was able to pass through this area with a transient delay of no more than 1 second. No hiatal hernia or gastroesophageal reflux demonstrated with patient in sitting/upright position. FL/FL barium swallow IMPRESSION: -Decreased primary esophageal peristalsis and tertiary contractions consistent with presbyesophagus. -Borderline narrowing at junction tubular and vestibular esophagus. Barium pill passes through this area with no more than 1 second delay. -No hiatal hernia or gastroesophageal reflux demonstrated with patient evaluated sitting/upright.
== END 2022-05-11 08:15 | disposition home or self-care (01) ==
LOC: HO.XRAY 08:14
PROVIDERS: PCP Internal Medicine Rheumatology; Visit Provider Internal Medicine
DX: K22.4 Dyskinesia of esophagus (principal)
CPT/HCPCS: 74220

== ENCOUNTER 2022-12-14 10:29 | Emergency (ER) | payer OTHER, SELFPAY ==
[2022-12-14 10:46] VITALS: BP 150/80; BP 182/80; PULSE 80; PULSE 82; RESP 16; TEMP 36.7; O2SAT 99; BMI 28.0
--- OUTSIDE RECORDS SUMMARY | 2022-12-14 11:06 | XMS_ITS | Continuity of Care Document ---
Author Name Unknown Organization [facility] Address [address] [place] [address]- Care Team Providers Care Profiling Machine Set Up Operator Name Role Phone Dhaval Valverde DO Primary Care Physician Encounter [facility] Date(s): 10/19/19 - 10/19/[address] [address]- [facility] Attending Physician: Elma CEDILLO, Chapo Mncally Allergies, Adverse Reactions, Alerts Substance Reaction Severity Status sulfa drugs Active
--- OUTSIDE RECORDS SUMMARY | 2022-12-14 11:06 | XMS_ITS ---
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 Problem Esophageal obstruction K22.2 Active 97460615 Problem Esophageal dysphagia R13.19 Active 408 98338 Problem Dysphagia R13.10 Active 23479620 Problem Esophagitis, erosive K22.10 Active 308 51254 Problem Acute diarrhea R19.7 Active 433418263 Problem Erosive esophagitis K22.10 Active Problem Esophageal stricture K22.2 Active Problem Esophageal dysmotility K22.4 Active 158275767 Problem Gastroesophageal reflux K21.9 Active [id number] ALLERGIES No Known Allergies ENCOUNTERS Encounter Location Date Diagnosis [facility] [address] [place] [phone] Oct, [facility] [address] [place] [phone] Aug, [facility] [address] [place] [phone] Aug, [facility] [address] [place] [phone] Jul, [facility] [address] [place] [phone] 11 Jul, 2022 Esophageal dysmotility K22.4 ; Erosive esophagitis K22.10 and Esophageal stricture K22.2 [facility] [address] [place] [address] Jul, [facility] [address] [place] [address] Jun, [facility] [address] [place] [address] Jun, [facility] [address] [place] [address] Apr, [facility] [address] [place] [address] Apr, [facility] [address] [place] [address] Mar, [facility] [address] [place] [address] Mar, [facility] [address] [place] [address] Mar, [facility] [address] [place] [address] Mar, Esophageal dysmotility K22.4 ; Erosive esophagitis K22.10 and Esophageal stricture K22.2 [facility] [address] [place] [address] Mar, [facility] [address] [place] [address] Feb, [facility] [address] [place] [address] 16 Feb, 2022 Acute diarrhea R19.7 [facility] [address] [place] [address] 08 Feb, 2022 Dysphagia R13.10 [facility] Outpatient [address] [place] [address] [place], [place] [phone] 07 Feb, 2022 Dysphagia R13.10 ; Gastroesophageal reflux K21.9 and Hiatal hernia K44.9 [facility] [address] [place] [address] Feb, [facility] [address] [place] [address] January, [facility] [address] [place] [address] [place] [address] January, [facility] [address] [place] [address] [place] [address] January, Erosive esophagitis K22.10 and Esophageal dysphagia R13.19 [facility] [address] [place] [phone] January, [facility] [address] [place] [phone] Dec, [facility] Outpatient [address] [place] [phone] Nov, [facility] ER [address] [place], [place] [phone] Apr, [facility] Outpatient [address] [place] [id number] Nov, [facility] Outpatient [address] [place] [id number] Oct, [facility] ER [address] [place], [place] [phone] Oct, IMMUNIZATIONS Vaccine Route Administration Date Status Influenza Unknown May 30, 2022 Administered Influenza Unknown Jun 16, 2021 Administered SOCIAL HISTORY Qualifiers Date Never Smoker REASON FOR REFERRAL FUNCTIONAL STATUS PLAN OF CARE Activity Details VITAL SIGNS Weight 141 lbs 2022-07-27 Weight 147 lbs 2022-04-03 Height 66 in 2022-07-27 Height 66 in 2022-04-03 BMI 22.76 kg/m2 2022-07-27 BMI 23.72 kg/m2 2022-04-03 Temperature 97.5 degrees Fahrenheit Blood pressure systolic 000 mm Hg Blood pressure diastolic 00 mm Hg 2022-07 MEDICATIONS Medication Instructions Dosage Frequency Start Date End Date Duration Status Sodium Chloride 1 GM as directed Active Lactobacillus Rhamnosus (GG) - as directed A ctive Lantus 100 UNIT/ML Subcutaneous at hs as directed Active Vitamin B 12 500 MCG Orally Once a day 1 tablet 24h 30 day(s) Active Vitamin D-3 125 MCG (5000 UT) as directed Acti ve Simvastatin 20 MG/5ML Orally Once a day 5 ml in the evening 24h January, 30 day(s) Active Loperamide HCl 2 MG Orally Four times a day 1 capsule as needed 6h Active Omeprazole 40 MG Orally Every morning 1 16 Jul, 2022 30 day(s) Active Vitamin B Complex - as directed January, Active Methenamine Hippurate 1 GM Orally Twice a day 1 tablet 12h 10 day(s) Active Omeprazole 2 MG/ML Orally Once a day 20 ml(40mg) 24h Active HumaLOG 100 UNIT/ML as directed January, Active Donepezil HCl 10 MG Orally Once a day 1 tablet at bedtime 24h 30 day(s) Active PROCEDURES Procedure Date Ordered Result Body Site BP SCR NOT PRFRM REC REASON NOS April 03, 2022 TOBACCO NON-USER April 03, 2022 OPERATIVE UPPER GI ENDOSCOPY January 28, 2022 DOC MEDS VERIFIED W/PT OR RE April 03, 2022 TV 21+ Minutes Jul 27, 2022 ESOPH ENDOSCOPY, DILATION February 20, 2022 RESULTS Name Result Date Reference Range FL barium swallow 2022-05-11 Leukocytes Stool Qualitative 2022-03-02 Leukocytes Stool Qualitative NEGATIVE NEGATIVE Stool Culture 2022-03-02 CDiff Gene PCR 2022-03-02 CDiff Gene PCR NEGATIVE Negative Giardia Ag Stool EIA 2022-03-02 Giardia Ag Stool EIA SEE NOTE Ova and Parasite 2022-03-02 Ova and Parasite SEE NOTE Glucose, Whole Blood 2022-02-20 Glucose, Whole Blood 162 60-115 Prothrombin Time INR 2022-02-20 Prothrombin Time 14.1 9.9-13.0 INTERNATIONAL NORM RATIO 1.2 0.9 -1.1 Electrolytes 2022-02-20 Sodium 136 135-145 Potassium 5.7 3.3-5.1 Chloride 102 96-108 Carbon Dioxide 28 22-29 Anion Gap 12 12-20 Glucose, Whole Blood 2022-02-20 Glucose, Whole Blood 173 60-115 REASON FOR VISIT Patient presents today for esophagitis, Patient presents today for erosive esophagitis, erosive esophagitis, question on prednisone, merging from liquid to solid foods, Dr Stephenson will contact you., cancel barium swallow , barium swallow , concerned about tilt table for his 's 05/11 barium swallow, Patient presents today for dysphagia, esophageal striicture., FYI, explosive diarrhea, authorizations, erosive esophagitis, ov appt, MEDICATION LIST, how long on a liquid diet., FREQUENT LOOSE BM'S, refill Insurance Providers Health Insurance Type Health Plan Insurance Address Health Plan Insurance Phone Health Plan Insurance Name Health Plan Coverage Dates Member ID Patient Relationship to Subscriber Patient Address Patient Phone Patient Name Patient Date of Subscriber ID Subscriber Name Subscriber Date of Group No [facility] MAIL STOP [id number] [facility] [address] [facility] [employer] [facility] self JADEN Crenshaw [id number] MEDICAID OF [employer] [address] [facility] [address] MEDICAID OF [employer] self JADEN Crenshaw [id number]
--- OUTSIDE RECORDS SUMMARY | 2022-12-14 11:06 | XMS_ITS | Continuity of Care Document ---
Author Name Unknown Organization [facility] ter Address [address] [place] [address]- Care Team Providers Care Physics And Astronomy Professor Name Role Phone Sachin CEDILLO, Bob Mcnally Primary Care Physician Encounter [place] Date(s): 03/06/22 - 04/15/[address] [address] Attending Physician: Helen Corral MD Admitting Physician: Helen Corral MD Referring Physician: Jakob [GI] Som CEDILLO Allergies, Adverse Reactions, Alerts Substance Reaction Severity Status sulfa drugs Active Immunizations Given and Recorded Vaccine Date Status Refusal Reason SARS-CoV-2 (COVID-19) mRNA BNT-162b2 vac 11/09/20 Given
--- OUTSIDE RECORDS SUMMARY | 2022-12-14 11:06 | XMS_ITS | Continuity of Care Document ---
Author Name Unknown Organization [facility] ter Address [address] [place] [address]- Care Team Providers Care Pocketed Spring Assembler Name Role Phone Sachin CEDILLO, Bob Mcnally Primary Care Physician Encounter [facility] Date(s): 03/23/22 - 03/23/[address] [address] Discharge Disposition: A-D/C Home Attending Physician: Ellis CEDILLO, Helen Mcnally Admitting Physician: Helen Corral MD Referring Physician: Jakob [GI] , Som Alfonso Allergies, Adverse Reactions, Alerts Substance Reaction Severity Status sulfa drugs Active Immunizations Given and Recorded Vaccine Date Status Refusal Reason SARS-CoV-2 (COVID-19) mRNA BNT-162b2 vac 11/09/20 Given
--- NOTE | 2022-12-14 11:08 | ECG_ITS ---
Test Reason : CHEST PAIN Blood Pressure : / mmHG Vent. Rate : 076 BPM Atrial Rate : 076 BPM P-R Int : 136 ms QRS Dur : 092 ms QT Int : 400 ms P-R-T Axes : 116 084 110 degrees QTc Int : 450 ms Normal sinus rhythm Nonspecific ST and T wave abnormality Abnormal ECG When compared with ECG of 12-MAR-2022 09:20, No significant changes seen Referred By: Ofelia Sagastume Electronically Signed By:JEANNE BENJAMIN
[2022-12-14] MEDS: 0.9 % Sodium Chloride 1,000 ML 999 ML IV (11:23)
[2022-12-14 11:28] LABS: MANUAL DIFF FLAG NO
--- NOTE | 2022-12-14 11:28 | ED.RECABL ---
HPI - Recheck/Abnormal Lab/Rx General Chief Complaint: Recheck/Abnormal Lab/Rx Stated Complaint: Abnormal lab(sodium) per EMS Time Seen by Provider: 12/14/22 10:32 History of Present Illness HPI narrative: Patient is a 77-year-old female with a history diabetes. Presented today with outpatient labs showing a sodium of 126 also an elevated glucose of approximately 300. Patient has no specific complaints. No fever no chills no pain on urination no nausea no vomiting no new medications. Patient from home. No changes in diet. No coughing or congestion or upper respiratory symptoms. No chest pain or shortness of breath. Related Data Home Medications Medication Instructions Recorded Confirmed Lactobacillus rhamnosus GG 10 1 cap PO BID 10/14/21 03/12/22 billion cell capsule (Culturelle) cholecalciferol (vitamin D3) 125 125 mcg PO DAILY@1700 10/14/21 03/12/22 mcg (5,000 unit) tablet (Vitamin D3) cyanocobalamin (vitamin B-12) 500 500 mcg PO DAILY 10/14/21 03/12/22 mcg tablet donepezil 10 mg tablet 10 mg PO DAILY 10/14/21 03/12/22 insulin lispro 100 unit/mL 2 unit subcut QPM 10/14/21 03/12/22 subcutaneous cartridge (Humalog U-100 Insulin) insulin lispro 100 unit/mL 4 unit subcut DAILY 10/14/21 03/12/22 subcutaneous cartridge (Humalog U-100 Insulin) insulin lispro 100 unit/mL 7 unit subcut DAILY@1200 10/14/21 03/12/22 subcutaneous cartridge (Humalog U-100 Insulin) methenamine hippurate 1 gram tablet 1 g PO BID@0900,1700 10/14/21 03/12/22 simvastatin 20 mg tablet 20 mg PO BEDTIME 10/14/21 03/12/22 sodium chloride 1 gram tablet 2 tab PO DAILY 01/20/22 03/12/22 insulin lispro 100 unit/mL 1 sliding scale dose subcut TIDAC 03/12/22 03/12/22 subcutaneous solution (Humalog U-100 Insulin) omeprazole magnesium 10 mg oral 40 mg PO BID 03/12/22 03/12/22 suspension,delayed release sodium chloride 1 gram tablet 1,000 mg PO DAILY@1730 03/12/22 03/12/22 Previous Rx's Medication Instructions Recorded cefuroxime axetil 500 mg tablet 500 mg PO BID 3 days #6 tabs 03/16/22 insulin glargine 100 unit/mL (3 12 unit (0.12 mL) subcut .qhs #15 03/16/22 mL) subcutaneous pen (Lantus mL Solostar U-100 Insulin) Allergies Allergy/AdvReac Type Severity Reaction Status Date / Time Sulfa (Sulfonamide Allergy Severe RASH/HIVES, Verified 02/14/22 14:30 Antibiotics) hives [SULFA (SULFONAMIDE ANTIBIOTICS)] insulin aspart Allergy Unknown HIVES Verified 02/14/22 14:30 [From NOVOLOG U-100 INSULIN ASPART] levofloxacin [From LEVAQUIN] AdvReac Intermediate BLOOD Verified 02/14/22 14:30 SUGAR DROPS milk [MILK] AdvReac Mild NAUSEA Verified 02/14/22 14:30 Review of Systems Review of Systems: No fever no chills no cough no congestion or upper respiratory symptoms. No nausea no vomiting. Yes all other systems are reviewed and are negative [facility] Past Medical History Medical History CAD (coronary artery disease) CKD (chronic kidney disease), stage III COVID-19 Dementia DM type 1 (diabetes mellitus, type 1) Esophageal dilatation GERD (gastroesophageal reflux disease) Glaucoma HTN (hypertension) Hypercholesterolemia Hyperkalemia Hypothyroid Neuropathy Orthostatic hypotension POTS (postural orthostatic tachycardia syndrome) PPD positive QT prolongation Retinopathy Vitamin B12 deficiency Social History Social History Household Members: Significant Other Housing: House Do you presently have visiting nurse or other home services: No Unable to assess alcohol history related to: Unable to respond Alcohol intake: never Patient Tobacco Use Status: Never used Tobacco Smoked in Last 30 Days: No e-Cigarette/Vaping Use: Never Used Second Hand Smoke Exposure: No Use of substances other than those prescribed or required for medical reasons: No Advance Directives: Yes Advance Directives on File: Yes Advance Directives Date on File: 10/23/21 service: No Current occupational status: retired Physical Exam Vital Signs: Vital Signs: Last Vital Signs Temp 98.0 F 12/14/22 10:46 Pulse 81 12/14/22 12:19 Resp 16 12/14/22 12:19 BP 198/88 H 12/14/22 12:19 Pulse Ox 100 12/14/22 12:19 O2 Del Method Room Air 12/14/22 12:19 BMI result Body Mass Index 28.0 Appearance: Alert. Oriented X3. No acute distress. Eyes: Pupils equal, round and reactive to light. ENT: Pharynx normal. Neck: Normal inspection. Neck supple. No lymph nodes noted. No crepitus CVS: Normal heart rate and rhythm. Pulses normal. Normal S1 and S2 Respiratory: No respiratory distress. Breath sounds normal. No Wheezing. No rales Abdomen: Soft and nontender. No rigidity. No distention. good BS x4 Skin: Skin warm and dry. Normal skin color. Normal skin turgor. Extremities: No lower extremity edema. Neurovascular intact to all extremities. No Lacerations. No Rash Neuro: Oriented X 3. No motor deficit. No sensory deficit. Moving all extermities. No slurred speech Medications Administered Discontinued Medications Generic Name Dose Route Start Last Admin Trade Name Freq PRN Reason Stop Dose Admin Sodium Chloride 1,000 mls @ 999 mls/hr 12/14/22 11:15 12/14/22 11:23 Ns IV 12/14/22 12:15 999 mls/hr .Q1H1M CHRISTOPH Administration Medical Decision Making Medical Decision Making [facility] Narrative: Patient presented today with having no symptoms but outpatient labs showing a sodium of 126 and a possible urinary tract infection. Patient also had an elevated sugar in the 300s range. Question pseudo hyponatremia secondary to hyperglycemia. Patient's labs were repeated. Urine repeated. EKG done. COVID test ordered. COVID test was negative. My review of Patient's EKG showed a nice sinus pattern heart rate was 80 NM QRS QT within normal limits is no acute ST segment elevation there is no acute changes. Patient's sodium in the emergency department was 131. There is no evidence for hyponatremia. Sugar is below 300. Blood pressure is elevated. Will require follow-up on an outpatient basis. In the setting of patient being asymptomatic. In stable condition. Reason for the nausea was slightly elevated likely secondary to it being hemolyzed. Differential Diagnosis Differential Diagnoses: The differential diagnosis associated with the presentation includes Hyponatremia, hyperglycemia, urinary tract infection Lab Data [facility] Lab Attestation statement: I reviewed the patient's lab results. 12/14/22 11:22 12/14/22 11:22 Labs: Lab Results 12/14/22 12/14/22 12/14/22 Range/Units 11:22 11:22 11:22 WBC 4.7 L (4.8-10.8) X10*3/uL RBC 3.79 L (4.20-5.50) X10*6/uL Hgb 11.7 L (12.0-16.0) g/dl Hct 34.7 L (37.0-47.0) % MCV 91.6 (80.0-98.0) fL MCH 30.9 (27.0-33.0) pg MCHC 33.7 (31.0-35.0) g/dl RDW 13.0 (11.0-16.0) % Plt Count 276 D (160-400) X10*3/uL MPV 10.3 (9.4-12.3) fL Immature Gran % (Auto) 0.2 (0.0-0.4) % Neut % (Auto) 72.4 (45-73) % Lymph % (Auto) 13.3 L (20-40) % [place] % (Auto) 11.0 (2-11) % Eos % (Auto) 2.5 (0-4) % Baso % (Auto) 0.6 (0-2) % Lymph # (Auto) 0.6 L (1.2-4.9) X10*3/uL [place] # (Auto) 0.5 (0.1-1.2) X10*3/uL Eos # (Auto) 0.1 (0.0-0.4) X10*3/uL Baso # (Auto) 0.0 (0.0-0.2) X10*3/uL Abs Immat Gran (auto) 0.01 (0.00-0.03) X10*3/uL Absolute Neuts (auto) 3.4 (2.0-8.3) x10*3/uL Absolute Nucleated RBC 0.000 (0.0-0.012) X10*3/uL Nucleated RBC % (auto) 0.0 (0.0-0.2) /100WBC Sodium 131 L (135-145) mmol/L Potassium 5.8 H D (3.3-5.1) mmol/L Chloride 95 L (96-108) mmol/L Carbon Dioxide 31 H (22-29) mmol/L Anion Gap 11 L (12-20) BUN 20 H (9-16) mg/dL Creatinine 1.08 (0.5-1.4) mg/dL Estim Creat Clear Calc 39.2 Estimated GFR 49 POC Glucose (60-115) mg/dL Random Glucose 308 H (60-115) mg/dL Calcium 9.1 D (8.4-10.2) mg/dL Total Bilirubin 0.6 (0.0-1.0) mg/dL Direct Bilirubin 0.2 (0.0-0.5) mg/dL AST 12 (5-31) U/L ALT 7 (0-31) U/L Alkaline Phosphatase 113 (39-117) U/L Total Protein 6.1 L (6.5-8.0) g/dL Albumin 3.9 (3.5-5.0) g/dL Urine Color Urine Appearance Urine pH (5.0-9.0) Ur Specific [place] (1.005-1.025) Urine Protein (Neg-Trace) mg/dL Urine Glucose (UA) (Negative) mg/dL Urine Ketones (Negative) mg/dL Urine Blood (Negative) Urine Nitrite (Negative) Ur Leukocyte Esterase (Negative) Urine RBC (0-2) /HPF Urine WBC (0-5) /HPF Ur Squamous Epith Cells (0-2) /HPF Urine Bacteria (None Seen) Hyaline Casts (0-2) /LPF Influenza Type A (PCR) NEGATIVE (Negative) Influenza Type B (PCR) NEGATIVE (Negative) RSV RNA Qual (PCR) NEGATIVE (Negative) SARS-CoV-2 RNA (RT-PCR) NEGATIVE (Negative) 12/14/22 12/14/22 Range/Units 11:25 12:32 WBC (4.8-10.8) X10*3/uL RBC (4.20-5.50) X10*6/uL Hgb (12.0-16.0) g/dl Hct (37.0-47.0) % MCV (80.0-98.0) fL MCH (27.0-33.0) pg MCHC (31.0-35.0) g/dl RDW (11.0-16.0) % Plt Count (160-400) X10*3/uL MPV (9.4-12.3) fL Immature Gran % (Auto) (0.0-0.4) % Neut % (Auto) (45-73) % Lymph % (Auto) (20-40) % [place] % (Auto) (2-11) % Eos % (Auto) (0-4) % Baso % (Auto) (0-2) % Lymph # (Auto) (1.2-4.9) X10*3/uL [place] # (Auto) (0.1-1.2) X10*3/uL Eos # (Auto) (0.0-0.4) X10*3/uL Baso # (Auto) (0.0-0.2) X10*3/uL Abs Immat Gran (auto) (0.00-0.03) X10*3/uL Absolute Neuts (auto) (2.0-8.3) x10*3/uL Absolute Nucleated RBC (0.0-0.012) X10*3/uL Nucleated RBC % (auto) (0.0-0.2) /100WBC Sodium (135-145) mmol/L Potassium (3.3-5.1) mmol/L Chloride (96-108) mmol/L Carbon Dioxide (22-29) mmol/L Anion Gap (12-20) BUN (9-16) mg/dL Creatinine (0.5-1.4) mg/dL Estim Creat Clear Calc Estimated GFR POC Glucose 277 H (60-115) mg/dL Random Glucose (60-115) mg/dL Calcium (8.4-10.2) mg/dL Total Bilirubin (0.0-1.0) mg/dL Direct Bilirubin (0.0-0.5) mg/dL AST (5-31) U/L ALT (0-31) U/L Alkaline Phosphatase (39-117) U/L Total Protein (6.5-8.0) g/dL Albumin (3.5-5.0) g/dL Urine Color Yellow Urine Appearance Clear Urine pH 7.5 (5.0-9.0) Ur Specific [place] 1.010 (1.005-1.025) Urine Protein 30 (1+) H (Neg-Trace) mg/dL Urine Glucose (UA) 500 H (Negative) mg/dL Urine Ketones Negative (Negative) mg/dL Urine Blood Negative (Negative) Urine Nitrite Negative (Negative) Ur Leukocyte Esterase Negative (Negative) Urine RBC 0-2 (0-2) /HPF Urine WBC 0-5 (0-5) /HPF Ur Squamous Epith Cells 0-2 (0-2) /HPF Urine Bacteria None Seen (None Seen) Hyaline Casts 0-2 (0-2) /LPF Influenza Type A (PCR) (Negative) Influenza Type B (PCR) (Negative) RSV RNA Qual (PCR) (Negative) SARS-CoV-2 RNA (RT-PCR) (Negative) Independent Interpretation I performed an independent interpretation of an: EKG Interpretation: Sinus pattern heart rate of 75 NM QRS QT within normal limits is no acute ST segment elevation External Record Review External record reviewed: Prior outpatient labs Chronic Conditions Patient?s care impacted by: Diabetes and Hypertension Discharge Plan Discharge Clinical Impression: Hypertension Patient Disposition: Home, Self-Care Instructions: Hypertension (ED) Additional Instructions: Your blood pressure was extremely elevated today. Please get a repeat blood pressure check in 24-48 hours. Prescriptions: No Action sodium chloride 1 gram tablet 2 tab PO DAILY insulin lispro [Humalog U-100 Insulin] 100 unit/mL Solution 1 sliding scale dose SUBCUT TIDAC Protocol: Insulin Correction Scale Less than or equal to 110 ---- Give (units): 0 111 to 150 Give (units): 0 151 to 200 Give (units): 2 201 to 250 Give (units): 4 251 to 300 Give (units): 6 301 to 350 Give (units): 8 Greater than 350 Give (units): 10 Call MD if Blood Glucose > : 350 sodium chloride 1 gram Tablet 1,000 mg PO DAILY@1730 omeprazole magnesium 10 mg susp,delayed release for recon 40 mg PO BID insulin glargine [Lantus Solostar U-100 Insulin] 100 unit/mL (3 mL) insulin pen 12 unit subcut .qhs Qty: 15 0RF cefuroxime axetil 500 mg tablet 500 mg PO BID 3 Days Qty: 6 0RF donepezil 10 mg Tablet 10 mg PO DAILY simvastatin 20 mg Tablet 20 mg PO BEDTIME Humalog U-100 Insulin 100 unit/mL Cartridge 4 unit SUBCUT DAILY Humalog U-100 Insulin 100 unit/mL Cartridge 7 unit SUBCUT DAILY@1200 Humalog U-100 Insulin 100 unit/mL Cartridge 2 unit SUBCUT QPM methenamine hippurate 1 gram Tablet 1 g PO BID@0900,1700 cyanocobalamin (vitamin B-12) 500 mcg Tablet 500 mcg PO DAILY cholecalciferol (vitamin D3) [Vitamin D3] 125 mcg (5,000 unit) Tablet 125 mcg PO DAILY@1700 Culturelle 10 billion cell Capsule 1 cap PO BID Referrals: Bob Stephenson MD [Primary Care Provider] -
[2022-12-14 11:29] LABS: Glucose, Whole Blood 277 mg/dL (60-115)
[2022-12-14 11:31] LABS: Basophils Percent Auto 0.6 % (0-2); Eosinophils Absolute Auto 0.1 X10*3/uL (0.0-0.4); Eosinophils Percent Auto 2.5 % (0-4); Hematocrit 34.7 % (37.0-47.0); Hemoglobin 11.7 g/dl (12.0-16.0); Imm Gran Abs Auto 0.01 X10*3/uL (0.00-0.03); Imm Gran Pct Auto 0.2 % (0.0-0.4); Lymphocytes Absolute Auto 0.6 X10*3/uL (1.2-4.9); Lymphocytes Percent Auto 13.3 % (20-40); Mean Corpuscular HGB Conc 33.7 g/dl (31.0-35.0); Mean Corpuscular Hemoglobin 30.9 pg (27.0-33.0); Mean Corpuscular Volume 91.6 fL (80.0-98.0); Mean Platelet Volume 10.3 fL (9.4-12.3); Monocytes Absolute Auto 0.5 X10*3/uL (0.1-1.2); Neutrophils Absolute Auto 3.4 x10*3/uL (2.0-8.3); Neutrophils Percent Auto 72.4 % (45-73); Platelet Count 276 X10*3/uL (160-400); Red Blood Count 3.79 X10*6/uL (4.20-5.50); White Blood Count 4.7 X10*3/uL (4.8-10.8)
[2022-12-14 11:44] LABS: Alanine Aminotransferase 7 U/L (0-31); Albumin Level 3.9 g/dL (3.5-5.0); Alkaline Phosphatase 113 U/L (39-117); Anion Gap 11 (12-20); Aspartate Amino Transferase 12 U/L (5-31); Bilirubin Direct 0.2 mg/dL (0.0-0.5); Bilirubin Total 0.6 mg/dL (0.0-1.0); Blood Urea Nitrogen 20 mg/dL (9-16); Calcium 9.1 mg/dL (8.4-10.2); Carbon Dioxide 31 mmol/L (22-29); Chloride 95 mmol/L (96-108); Creatinine Clr Calc Pharmacy 39.2; Estimated Glomerular Filt Rate 49; Glucose Random 308 mg/dL (60-115); Potassium 5.8 mmol/L (3.3-5.1); Sodium 131 mmol/L (135-145); Total Protein 6.1 g/dL (6.5-8.0)
[2022-12-14 12:07] LABS: Influenza A PCR NEGATIVE (Negative); Influenza B PCR NEGATIVE (Negative); Resp Syncy Virus RNA Qual PCR NEGATIVE (Negative); SARS COV2 PCR INHOUSE NEGATIVE (Negative)
[2022-12-14 12:19] VITALS: BP 198/88; PULSE 81; RESP 16; O2SAT 100
[2022-12-14 12:43] LABS: Appearance Urine Clear; Color Urine Yellow; Glucose Urine UA 500 mg/dL (Negative); Leukocyte Esterase Urine Negative (Negative); Nitrite Urine Negative (Negative); PH 7.5 (5.0-9.0); UMIC TRIGGER UACC YES; Urine Blood Negative (Negative); Urine Ketones Negative (Negative); Urine Protein 30 (1+) mg/dL (Neg-Trace)
[2022-12-14 12:47] LABS: Bacteria Urine None Seen (None Seen); Hyaline Casts Urine 0-2 /LPF (0-2); RBC Urine 0-2 /HPF (0-2); Squamous Epithelial Cell Urine 0-2 /HPF (0-2); WBC Urine 0-5 /HPF (0-5)
[2022-12-14 13:13] VITALS: BP 190/94; PULSE 82; RESP 16; O2SAT 98
[2022-12-14 13:56] VITALS: BP 197/88; PULSE 86; RESP 18; O2SAT 98
[2022-12-14] MEDS: lisinopriL 20 MG TABLET PO (13:56)
[2022-12-14] MEDS: LORazepam 0.5 MG TABLET PO (13:56)
[2022-12-14 14:24] VITALS: BP 194/87; PULSE 90; RESP 14; O2SAT 99
[2022-12-14 15:05] VITALS: BP 159/78; PULSE 89; RESP 14; O2SAT 98
== END 2022-12-14 15:58 | disposition home or self-care (01) ==
PROVIDERS: Emergency Provider Emergency Medicine Emergency Medical Services; PCP Internal Medicine Rheumatology
DX: E11.22 Type 2 diabetes mellitus with diabetic chronic kidney disease (principal); I12.9 Hypertensive chronic kidney disease with stage 1 through stage 4 chronic kidney disease, or unspecified chronic kidney disease; N18.30 Chronic kidney disease, stage 3 unspecified; Z20.822 Contact with and (suspected) exposure to COVID-19; Z20.828 Contact with and (suspected) exposure to other viral communicable diseases; E78.00 Pure hypercholesterolemia, unspecified; Z79.4 Long term (current) use of insulin; Z79.02 Long term (current) use of antithrombotics/antiplatelets; Z79.899 Other long term (current) drug therapy
CPT/HCPCS: 0241U; 36415; 80048; 80076; 81001; 82947; 85025; 93005; 96360; 96361; 99285

== ENCOUNTER 2023-03-25 17:17 | Observation (INO) | payer OTHER, SELFPAY ==
--- NOTE | ~2023-03-25 | CT_ITS ---
EXAMINATION: CT HEAD WITHOUT CONTRAST CLINICAL INFORMATION: Altered mental status. COMPARISON: CT head 03/12/2022. TECHNIQUE: Contiguous axial imaging was performed from the skull base to vertex without intravenous administration of contrast. This CT examination was performed using dose optimization techniques as appropriate, variously including the following: *Automated exposure control *Adjustment of mA and/or kV according to patient size (this includes techniques or standardized protocols for targeted exams where dose is matched to indication/reason for exam; i.e. extremities or head) *Use of iterative reconstruction technique DLP: 662 mGy-cm FINDINGS: There is no evidence of acute intracranial hemorrhage or edematous territorial infarction. Scattered hypoattenuation in the periventricular and deep white matter are consistent with moderate microangiopathy. Gonsalez-white matter differentiation is preserved. Proportional prominence of the ventricles and sulcal spaces. No evidence for obstructive hydrocephalus. Mineralization of the basal ganglia. No abnormal mass effect or midline shift. No extra-axial fluid collections. No acute soft tissue or osseous abnormalities. Paranasal sinuses are clear. Small left-sided mastoid effusion. CT/CT head/brain wo IV con IMPRESSION: 1. No evidence of acute intracranial hemorrhage or edematous territorial infarction. 2. Chronic microangiopathy and generalized cerebral volume loss.
--- NOTE | ~2023-03-25 | XR_ITS ---
EXAMINATION: CHEST 2 VIEWS CLINICAL INFORMATION: ams. COMPARISON: 03/12/2022. TECHNIQUE: AP frontal and lateral views of the chest obtained FINDINGS: Lungs well-expanded. Chronic airspace opacity in the left midlung region with scattered chronic appearing airspace changes on the right as well. Overall this is chronic appearing process is similar to the prior study. I do not appreciate any acute superimposed focal infiltrate, effusion, edema, or pneumothorax. Cardiac and mediastinal silhouettes within normal limits for size with vascular calcification in the aorta XR/XR chest 2V IMPRESSION: Chronic appearing changes similar to the 03/12/2022 study. No acute superimposed process.
[2023-03-25 17:26] VITALS: BP 154/72; BP 182/73; PULSE 61; PULSE 62; RESP 16; TEMP 36.7; O2SAT 100; O2SAT 99; BMI 19.8
[2023-03-25 17:44] VITALS: BP 174/81; PULSE 62; RESP 14; TEMP 36.7; O2SAT 97
--- NOTE | 2023-03-25 18:19 | ECG_ITS ---
Test Reason : AMS Blood Pressure : / mmHG Vent. Rate : 064 BPM Atrial Rate : 064 BPM P-R Int : 146 ms QRS Dur : 094 ms QT Int : 450 ms P-R-T Axes : 067 080 076 degrees QTc Int : 464 ms Normal sinus rhythm Normal ECG When compared with ECG of 14-DEC-2022 11:30, Criteria for Lateral infarct are no longer Present Referred By: Rubens Brewer Electronically Signed By:CHELLY VEGAS MD
--- NOTE | 2023-03-25 18:29 | ED_ITS ---
HPI - Altered Mental Status General Chief Complaint: Altered Mental Status Stated Complaint: ANXIETY A&O X4 Time Seen by Provider: 03/25/23 18:18 Source: patient and family Mode of arrival: ambulatory Limitations: other History of Present Illness HPI narrative: 77-year-old female history of dementia on multiple medications for her advanced dementia GERD hyperlipidemia and recurrent UTIs presents to the emergency department after a witnessed syncopal episode. Per the who lives with patient she has been acting little bit off over the weekend. Patient has had recurrent UTIs for the past several months. Has been on off antibiotics but today after going to see a physician having blood work and giving a new blood pressure medication whether eating lunch she passed out. She was out for a few seconds he was worried that this is related to her blood sugar which was normal. Patient has never had this problem in the past patient is full code per the . also mentions patient's history of hyponatremia the lid seizures as well as hyperkalemia. Related Data Home Medications Medication Instructions Recorded Confirmed Lactobacillus rhamnosus GG 10 1 cap PO BID 10/14/21 03/25/23 billion cell capsule (Culturelle) cholecalciferol (vitamin D3) 125 125 mcg PO DAILY@1700 10/14/21 03/25/23 mcg (5,000 unit) tablet (Vitamin D3) cyanocobalamin (vitamin B-12) 500 500 mcg PO DAILY 10/14/21 03/25/23 mcg tablet donepezil 10 mg tablet 10 mg PO DAILY 10/14/21 03/25/23 insulin lispro 100 unit/mL 1 - 2 unit subcut DAILY@1630 10/14/21 03/25/23 subcutaneous cartridge (Humalog U-100 Insulin) insulin lispro 100 unit/mL 3 - 4 unit subcut DAILY@1200 10/14/21 03/25/23 subcutaneous cartridge (Humalog U-100 Insulin) insulin lispro 100 unit/mL 5 unit subcut DAILY 10/14/21 03/25/23 subcutaneous cartridge (Humalog U-100 Insulin) methenamine hippurate 1 gram tablet 1 g PO BID@0900,1700 10/14/21 03/25/23 simvastatin 20 mg tablet 20 mg PO BEDTIME 10/14/21 03/25/23 sodium chloride 1 gram tablet 2 tab PO BID 01/20/22 03/25/23 insulin lispro 100 unit/mL 1 sliding scale dose subcut TIDAC 03/12/22 03/25/23 subcutaneous solution (Humalog U-100 Insulin) omeprazole magnesium 10 mg oral 40 mg PO BID 03/12/22 03/25/23 suspension,delayed release ascorbic acid (vitamin C) 500 mg 500 mg PO BID 03/25/23 03/25/23 tablet cranberry fruit 450 mg tablet 450 mg PO DAILY 03/25/23 03/25/23 estradiol 0.01% (0.1 mg/gram) 0.5 appful vaginal 3XW 03/25/23 03/25/23 vaginal cream (Estrace) insulin glargine 100 unit/mL (3 7 unit subcut BEDTIME 03/25/23 03/25/23 mL) subcutaneous pen (Lantus Solostar U-100 Insulin) lisinopril 5 mg tablet 5 mg PO DAILY 03/25/23 03/25/23 Allergies Allergy/AdvReac Type Severity Reaction Status Date / Time Sulfa (Sulfonamide Allergy Severe RASH/HIVES, Verified 02/14/22 14:30 Antibiotics) hives [SULFA (SULFONAMIDE ANTIBIOTICS)] insulin aspart Allergy Unknown HIVES Verified 02/14/22 14:30 [From NOVOLOG U-100 INSULIN ASPART] levofloxacin [From LEVAQUIN] AdvReac Intermediate BLOOD Verified 02/14/22 14:30 SUGAR DROPS milk [MILK] AdvReac Mild NAUSEA Verified 02/14/22 14:30 Review of Systems Review of Systems: Review of systems: General: Syncope back to baseline at this time Patient denies any fever chills recent illness or falls Musculoskeletal: Denies back pain or body aches or other injuries HEENT: denies headache, runny nose, ear pain Respiratory: denies shortness of breath, cough Cardiovascular: no chest pain or palpitations : denies dysuria, frequency Abdomen: no nausea vomiting denies abdominal pain Extremities: no swelling, no pain Skin: no diaphoresis Yes all other systems are reviewed and are negative PMFSH Past Medical History Medical History CAD (coronary artery disease) CKD (chronic kidney disease), stage III COVID-19 Dementia DM type 1 (diabetes mellitus, type 1) Esophageal dilatation GERD (gastroesophageal reflux disease) Glaucoma HTN (hypertension) Hypercholesterolemia Hyperkalemia Hypothyroid Neuropathy Orthostatic hypotension POTS (postural orthostatic tachycardia syndrome) PPD positive QT prolongation Retinopathy Vitamin B12 deficiency Social History Social History Household Members: Significant Other Housing: House Do you presently have visiting nurse or other home services: No Unable to assess alcohol history related to: Unable to respond Alcohol intake: never Patient Tobacco Use Status: Never used Tobacco Smoked in Last 30 Days: No e-Cigarette/Vaping Use: Never Used Second Hand Smoke Exposure: No Use of substances other than those prescribed or required for medical reasons: No Advance Directives: Yes Advance Directives on File: Yes Advance Directives Date on File: 10/23/21 service: No Current occupational status: retired Physical Exam ED Vital Signs: Vital Signs - 24 hr 03/25/23 17:26 03/25/23 17:44 Temperature 98.1 F 98.0 F Pulse Rate 62 62 Respiratory Rate 16 14 Blood Pressure 182/73 H 174/81 H Pulse Oximetry 100 97 Oxygen Delivery Method Room Air Room Air BMI result Body Mass Index 19.8 Neurological exam: CN II- XII tested. Patient is alert and oriented to person place and time. Patient has no dysphagia or dysarthia, denies good vision in all four vision lee no nystagmus on exam, good strength to upper and lower extremities with normal reflexes to brachioradialis, wrist, patella and achilles. Negative romberg, good finger to nose and heel to mccain. General: Well-appearing well-nourished in no signs of distress HEENT: Normocephalic atraumatic Neck: No signs of JVD, no masses no tenderness or lymphadenopathy Cardiovascular: Regular rate and rhythm Respiratory: Clear to auscultation bilaterally Abdomen: Soft nontender no masses Extremities: Normal pedal pulses no signs of edema Skin: Dry warm no rashes Back: No tenderness full ROM NIH Stroke Scale Internal: Initial- Upon Arrival Time: 18:31 Level of Consciousness: Alert Level of Consciousness Questions: Answers both questions correctly Level of Consciousness Commands: Performs both tasks correctly Best Gaze: Normal Visual: No visual loss Facial Palsy: Normal Motor Arm (Right): No drift Motor Arm (Left): No drift Motor Leg (Right): No drift Motor Leg (Left): No drift Limb Ataxia: Absent Sensory: Normal Best Language: No aphasia Dysarthia: Normal Extinction and Inattention: No abnormality Score: 0 Course Reevaluation(s) Reevaluation #1: 1957 Patient has Medications Administered Discontinued Medications Generic Name Dose Route Start Last Admin Trade Name Selena PRN Reason Stop Dose Admin Sodium Chloride 1,000 mls @ 999 mls/hr 03/25/23 18:30 03/25/23 20:52 Ns IV 03/25/23 19:30 Infused .Q1H1M CHRISTOPH Infusion Sodium Chloride 1,000 mls @ 999 mls/hr 03/25/23 20:00 03/25/23 21:12 Ns IV 03/25/23 21:00 999 mls/hr .Q1H1M CHRISTOPH Administration Medical Decision Making Medical Decision Making [facility] Narrative: Patient with recurrent UTI's I will give fluids check for infection CT the head and evaluate the patient. Differential Diagnosis Differential Diagnoses: The differential diagnosis associated with the presentation includes AMS, acute cerebral bleed, weakness, dehydration, UTI, medication reaction. Hyponatremia and hyperkalemia are also on the differential Admission/Observation Consideration of admission/observation: Escalation of care including admission/observation considered Consult Healthcare Provider Management of the patient was discussed with: Hospitalist Dr. Mata who agreed with the admission. Lab Data [facility] Lab Attestation statement: I reviewed the patient's lab results. Patient with hyponatremia which appears to be baseline with improved potassium Concern for UTI I will treat with rocephin. 03/25/23 19:02 03/25/23 19:02 Labs: Lab Results 03/25/23 03/25/23 03/25/23 Range/Units 19:02 19:02 19:02 WBC 5.0 (4.8-10.8) X10*3/uL RBC 4.14 L (4.20-5.50) X10*6/uL Hgb 12.7 (12.0-16.0) g/dl Hct 37.6 (37.0-47.0) % MCV 90.8 (80.0-98.0) fL MCH 30.7 (27.0-33.0) pg MCHC 33.8 (31.0-35.0) g/dl RDW 12.7 (11.0-16.0) % Plt Count 266 (160-400) X10*3/uL MPV 9.8 (9.4-12.3) fL Immature Gran % (Auto) 0.2 (0.0-0.4) % Neut % (Auto) 71.2 (45-73) % Lymph % (Auto) 15.3 L (20-40) % [place] % (Auto) 9.9 (2-11) % Eos % (Auto) 2.8 (0-4) % Baso % (Auto) 0.6 (0-2) % Lymph # (Auto) 0.8 L (1.2-4.9) X10*3/uL [place] # (Auto) 0.5 (0.1-1.2) X10*3/uL Eos # (Auto) 0.1 (0.0-0.4) X10*3/uL Baso # (Auto) 0.0 (0.0-0.2) X10*3/uL Abs Immat Gran (auto) 0.01 (0.00-0.03) X10*3/uL Absolute Neuts (auto) 3.6 (2.0-8.3) x10*3/uL Absolute Nucleated RBC 0.000 (0.0-0.012) X10*3/uL Nucleated RBC % (auto) 0.0 (0.0-0.2) /100WBC Sodium 129 L (135-145) mmol/L Potassium 4.3 D (3.3-5.1) mmol/L Chloride 92 L (96-108) mmol/L Carbon Dioxide 25 (22-29) mmol/L Anion Gap 16 (12-20) BUN 23 H (9-16) mg/dL Creatinine 0.93 (0.5-1.4) mg/dL Estim Creat Clear Calc 46.3 Estimated GFR 58 Random Glucose 165 H (60-115) mg/dL Osmolality 281 (281-305) mosm/kg Lactic Acid (0.5-2.0) mmol/L Calcium 10.3 H D (8.4-10.2) mg/dL Total Bilirubin 0.6 (0.0-1.0) mg/dL Direct Bilirubin 0.2 (0.0-0.5) mg/dL AST 13 (5-31) U/L ALT 10 (0-31) U/L Alkaline Phosphatase 142 H (39-117) U/L Total Protein 7.5 (6.5-8.0) g/dL Albumin 4.6 (3.5-5.0) g/dL Lipase 13 (8-78) U/L Urine Color Urine Appearance Urine pH (5.0-9.0) Ur Specific Burt (1.005-1.025) Urine Protein (Neg-Trace) mg/dL Urine Glucose (UA) (Negative) mg/dL Urine Ketones (Negative) mg/dL Urine Blood (Negative) Urine Nitrite (Negative) Ur Leukocyte Esterase (Negative) COVID-19 (CRISTINO) (Negative) COVID-19 Clin Com 03/25/23 03/25/23 03/25/23 Range/Units 19:02 19:02 21:16 WBC (4.8-10.8) X10*3/uL RBC (4.20-5.50) X10*6/uL Hgb (12.0-16.0) g/dl Hct (37.0-47.0) % MCV (80.0-98.0) fL MCH (27.0-33.0) pg MCHC (31.0-35.0) g/dl RDW (11.0-16.0) % Plt Count (160-400) X10*3/uL MPV (9.4-12.3) fL Immature Gran % (Auto) (0.0-0.4) % Neut % (Auto) (45-73) % Lymph % (Auto) (20-40) % [place] % (Auto) (2-11) % Eos % (Auto) (0-4) % Baso % (Auto) (0-2) % Lymph # (Auto) (1.2-4.9) X10*3/uL [place] # (Auto) (0.1-1.2) X10*3/uL Eos # (Auto) (0.0-0.4) X10*3/uL Baso # (Auto) (0.0-0.2) X10*3/uL Abs Immat Gran (auto) (0.00-0.03) X10*3/uL Absolute Neuts (auto) (2.0-8.3) x10*3/uL Absolute Nucleated RBC (0.0-0.012) X10*3/uL Nucleated RBC % (auto) (0.0-0.2) /100WBC Sodium (135-145) mmol/L Potassium (3.3-5.1) mmol/L Chloride (96-108) mmol/L Carbon Dioxide (22-29) mmol/L Anion Gap (12-20) BUN (9-16) mg/dL Creatinine (0.5-1.4) mg/dL Estim Creat Clear Calc Estimated GFR Random Glucose (60-115) mg/dL Osmolality (281-305) mosm/kg Lactic Acid 0.7 (0.5-2.0) mmol/L Calcium (8.4-10.2) mg/dL Total Bilirubin (0.0-1.0) mg/dL Direct Bilirubin (0.0-0.5) mg/dL AST (5-31) U/L ALT (0-31) U/L Alkaline Phosphatase (39-117) U/L Total Protein (6.5-8.0) g/dL Albumin (3.5-5.0) g/dL Lipase (8-78) U/L Urine Color Yellow Urine Appearance Clear Urine pH 7.5 (5.0-9.0) Ur Specific Burt 1.010 (1.005-1.025) Urine Protein 100 (2+) H (Neg-Trace) mg/dL Urine Glucose (UA) Negative (Negative) mg/dL Urine Ketones Negative (Negative) mg/dL Urine Blood Negative (Negative) Urine Nitrite Negative (Negative) Ur Leukocyte Esterase Small (1+) H (Negative) COVID-19 (CRISTINO) Negative (Negative) COVID-19 Clin Com See Note Independent Interpretation I performed an independent interpretation of an: EKG and Plain X-Ray Interpretation: EKG Rate 64 nsr normal intervals no signs of ischemia interpreted by me. Chest XR. no acute intrathoracic process Independent Historian Clinical information obtained from an independent historian. History obtained from or confirmed by: Spouse External Record Review External record reviewed: Inpatient record Social Determinants Patient?s care significantly limited by Social Determinants of Health including: Inadequate housing Core Measures AMI core measures followed: Yes Discharge Plan Discharge Clinical Impression: Hyponatremia, Syncope, Urinary tract infection Patient Disposition: Admitted As Inpatient Prescriptions: No Action sodium chloride 1 gram tablet 2 tab PO BID insulin lispro [Humalog U-100 Insulin] 100 unit/mL Solution 1 sliding scale dose SUBCUT DA Protocol: Insulin Correction Scale Less than or equal to 110 ---- Give (units): 0 111 to 150 Give (units): 0 151 to 200 Give (units): 0 201 to 250 Give (units): 1 251 to 300 Give (units): 2 301 to 350 Give (units): 3 Greater than 350 Give (units): 4 Call MD if Blood Glucose > : 350 omeprazole magnesium 10 mg susp,delayed release for recon 40 mg PO BID donepezil 10 mg Tablet 10 mg PO DAILY simvastatin 20 mg Tablet 20 mg PO BEDTIME Humalog U-100 Insulin 100 unit/mL Cartridge 5 unit SUBCUT DAILY Humalog U-100 Insulin 100 unit/mL Cartridge 3 - 4 unit SUBCUT DAILY@1200 Rx Instructions: if BS < 150 give 3 unit if BS > 150 give 4 units plus the sliding scale Humalog U-100 Insulin 100 unit/mL Cartridge 1 - 2 unit subcut DAILY@1630 Rx Instructions: if BS < 150 give 1 unit if BS > 150 give 2 units plus the sliding scale methenamine hippurate 1 gram Tablet 1 g PO BID@0900,1700 cyanocobalamin (vitamin B-12) 500 mcg Tablet 500 mcg PO DAILY cholecalciferol (vitamin D3) [Vitamin D3] 125 mcg (5,000 unit) Tablet 125 mcg PO DAILY@1700 Culturelle 10 billion cell Capsule 1 cap PO BID ascorbic acid (vitamin C) 500 mg Tablet 500 mg PO BID estradiol [Estrace] 0.01 % (0.1 mg/gram) Cream 0.5 appful VAGINAL 3XW Rx Instructions: for 14 days cranberry fruit 450 mg Tablet 450 mg PO DAILY Rx Instructions: administer with a meal insulin glargine [Lantus Solostar U-100 Insulin] 100 unit/mL (3 mL) insulin pen 7 unit subcut BEDTIME lisinopril 5 mg Tablet 5 mg PO DAILY
--- NOTE | 2023-03-25 19:04 | MHC.EDTECH ---
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
[2023-03-25 19:11] LABS: MANUAL DIFF FLAG NO
[2023-03-25 19:12] LABS: Basophils Percent Auto 0.6 % (0-2); Eosinophils Absolute Auto 0.1 X10*3/uL (0.0-0.4); Eosinophils Percent Auto 2.8 % (0-4); Hematocrit 37.6 % (37.0-47.0); Hemoglobin 12.7 g/dl (12.0-16.0); Imm Gran Abs Auto 0.01 X10*3/uL (0.00-0.03); Imm Gran Pct Auto 0.2 % (0.0-0.4); Lymphocytes Absolute Auto 0.8 X10*3/uL (1.2-4.9); Lymphocytes Percent Auto 15.3 % (20-40); Mean Corpuscular HGB Conc 33.8 g/dl (31.0-35.0); Mean Corpuscular Hemoglobin 30.7 pg (27.0-33.0); Mean Corpuscular Volume 90.8 fL (80.0-98.0); Mean Platelet Volume 9.8 fL (9.4-12.3); Monocytes Absolute Auto 0.5 X10*3/uL (0.1-1.2); Monocytes Percent Auto 9.9 % (2-11); Neutrophils Absolute Auto 3.6 x10*3/uL (2.0-8.3); Neutrophils Percent Auto 71.2 % (45-73); Platelet Count 266 X10*3/uL (160-400); Red Blood Count 4.14 X10*6/uL (4.20-5.50); Red Cell Distribution Width 12.7 % (11.0-16.0)
[2023-03-25 19:27] LABS: COVID-19 Test Negative (Negative); IDNOW Serial# BCCEAD1C
--- OUTSIDE RECORDS SUMMARY | 2023-03-25 19:43 | XMS_ITS ---
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 Problem Esophageal obstruction K22.2 Active Problem Esophageal dysphagia R13.19 Active Problem Dysphagia R13.10 Active Problem Esophagitis, erosive K22.10 Active Problem Acute diarrhea R19.7 Active Problem Erosive esophagitis K22.10 Active Problem Esophageal stricture K22.2 Active Problem Esophageal dysmotility K22.4 Active Problem Gastroesophageal reflux K21.9 Active ALLERGIES Substance Reaction Event Type Date Status Levaquin Unknown Drug Allergy Dec, Active miterine Unknown Non Drug Allergy Dec, Active Sulfa Antibiotics Unknown Drug Allergy Dec, Act delmi ENCOUNTERS Encounter Location Date Diagnosis [facility] [address] [place] [phone] Dec, [facility] [address] [place] [phone] Dec, [facility] [address] [place] [phone] Dec, Esophageal dysmotility K22.4 ; Erosive esophagitis K22.10 and Esophageal stricture K22.2 [facility] [address] [place] [address] 13 Oct, 2022 [facility] [address] [place] [phone] 30 Aug, 2022 [facility] [address] [place] [address] Aug, [facility] [address] [place] [id number] 15 Jul, 2022 [facility] [address] [place] [address] 11 Jul, 2022 Esophageal dysmotility K22.4 ; Erosive esophagitis K22.10 and Esophageal stricture K22.2 [facility] [address] [place] [address] Jul, [facility] [address] [place] [phone] Jun, [facility] [address] [place] Jun, [facility] [address] [place] [phone] Apr, [facility] [address] [place] Apr, [facility] [address] [place] [address] Mar, [facility] [address] [place] Mar, [facility] [address] [place] Mar, [facility] [address] [place] [address] Mar, Esophageal dysmotility K22.4 ; Erosive esophagitis K22.10 and Esophageal stricture K22.2 [facility] [address] [place] [address] 11 Mar, 2022 [facility] [address] [place] [address] Feb, [facility] [address] [place] [address] 16 Feb, 2022 Acute diarrhea R19.7 [facility] [address] [place] [id number] 08 Feb, 2022 Dysphagia R13.10 [facility] [place] [place] Outpatient [address] [place] [id number] Feb, 2022 Dysphagia R13.10 ; Gastroesophageal reflux K21.9 and Hiatal hernia K44.9 [facility] [address] [place] [phone] Feb, [facility] [address] [place] [phone] January, [facility] [address] [place] [phone] January, [facility] [address] [place] [phone] January, Erosive esophagitis K22.10 and Esophageal dysphagia R13.19 [facility] [address] [place] [phone] January, [facility] [address] [place] [phone] Dec, [facility] [place] [place] Outpatient [address] [place] [id number] Nov, [facility] [place] [place] ER [address] [place] [id number] Apr, [facility] [place] [place] Outpatient [address] [place] [id number] Nov, [facility] [place] [place] Outpatient [address] [place] [id number] Oct, [facility] [place] [place] ER [address] [place] [id number] Oct, IMMUNIZATIONS Vaccine Route Administration Date Status Influenza Unknown May 30, 2022 Administered Influenza Unknown Jun 16, 2021 Administered SOCIAL HISTORY Qualifiers Date Never Smoker REASON FOR REFERRAL FUNCTIONAL STATUS PLAN OF CARE Activity Details VITAL SIGNS Weight 134 lbs 2022-12-20 Weight 141 lbs 2022-07-27 Weight 147 lbs 2022-04-03 Height 66 in 2022-12-20 Height 66 in 2022-07-27 Height 66 in 2022-04-03 BMI 21.63 kg/m2 2022-12-20 BMI 22.76 kg/m2 2022-07-27 BMI 23.72 kg/m2 2022-04-03 Temperature 97.5 degrees Fahrenheit Temperature 97.5 degrees Fahrenheit Blood pressure systolic 000 mm Hg Blood pressure diastolic 00 mm Hg 2022-12 MEDICATIONS Medication Instructions Dosage Frequency Start Date End Date Duration Status HumaLOG 100 UNIT/ML as directed January, Active Loperamide HCl 2 MG Orally Four times a day 1 capsule as needed 6h Active Vitamin B Complex - as directed January, Active Simvastatin 20 MG/5ML Orally Once a day 5 ml in the evening 24h January, 30 day(s) Active Omeprazole 40 MG Orally Every morning 1 Jul, Active Sodium Chloride 1 GM as directed Active Lisinopril 2.5 MG Orally Once a day 1 tablet 24h 30 day(s) Active Cranberry 405 MG as directed Active Vitamin D-3 125 MCG (5000 UT) as directed Acti ve Estradiol 10 % as directed Active Donepezil HCl 10 MG Orally Once a day 1 tablet at bedtime 24h 30 day(s) Active Methenamine Hippurate 1 GM Orally Twice a day 1 tablet 12h 10 day(s) Active Vitamin B 12 500 MCG Orally Once a day 1 tablet 24h 30 day(s) Active Lantus 100 UNIT/ML Subcutaneous at hs as directed Active Lactobacillus Rhamnosus (GG) - as directed A ctive Vitamin C Adult Gummies 125 MG as directed Act delmi Omeprazole 2 MG/ML Orally Once a day 20 ml(40mg) 24h Active PROCEDURES Procedure Date Ordered Result Body Site BP SCR NOT PRFRM REC REASON NOS April 03, 2022 TOBACCO NON-USER April 03, 2022 OPERATIVE UPPER GI ENDOSCOPY January 28, 2022 DOC MEDS VERIFIED W/PT OR RE April 03, 2022 TV 21+ Minutes December 20, 2022 TV 21+ Minutes Jul 27, 2022 ESOPH ENDOSCOPY, DILATION February 20, 2022 INIT HOSP-[facility] CPLX January 28, 2022 RESULTS Name Result Date Reference Range [...] Whole Blood 173 60-115 REASON FOR VISIT erosive esophagitis, low blood sugar , Patient presents today for esophagitis, Patient presents [...] Subscriber Name Subscriber Date of Group No MEDICAID OF [employer] [address] [facility] [id number] MEDICAID OF [employer] self JADEN Crenshaw [id number] CLAIMS MAIL STOP [id number] [facility] [id number] [employer] self JADEN Crenshaw [id number]
--- NOTE | 2023-03-25 19:45 | PHA.MEDREC ---
Pharmacy Consult ? Medication Reconciliation Pharmacy has completed the medication reconciliation. Spoke with patient's . Patient clarifed all insulins dose and meals information. report patient needs soft food due to difficuly swallowing but patient is able to takes all her medications without crushing. Inform patient's he will need to speak with provider in regards to patient's diet while in the hospital. Insulin: Lantus: 7 units every night at 2100 Humalog - Breakfast: 5 units - Lunch: if BS < 150 give 1 unit and if BS > 150 give 2 units plus the sliding scale - Dinner: If BS <150 give 1 units and if BS > 150 give 2 units plus the sliding Scale - Sliding Scale: BS 200-249 give 1 units, BS 250-299 give 2 units, BS 300-349 give 3 untis, BS 350-399 give 4 units, BS > 400 give 5 units Ana Urbina, PharmD
[2023-03-25 19:50] LABS: Lactic Acid 0.7 mmol/L (0.5-2.0)
[2023-03-25] MEDS: 0.9 % Sodium Chloride 1,000 ML 999 ML IV ×2 (19:51→21:12)
[2023-03-25 19:52] LABS: Alanine Aminotransferase 10 U/L (0-31); Albumin Level 4.6 g/dL (3.5-5.0); Alkaline Phosphatase 142 U/L (39-117); Anion Gap 16 (12-20); Aspartate Amino Transferase 13 U/L (5-31); Bilirubin Direct 0.2 mg/dL (0.0-0.5); Bilirubin Total 0.6 mg/dL (0.0-1.0); Blood Urea Nitrogen 23 mg/dL (9-16); Calcium 10.3 mg/dL (8.4-10.2); Carbon Dioxide 25 mmol/L (22-29); Chloride 92 mmol/L (96-108); Creatinine Clr Calc Pharmacy 46.3; Estimated Glomerular Filt Rate 58; Glucose Random 165 mg/dL (60-115); Lipase 13 U/L (8-78); Potassium 4.3 mmol/L (3.3-5.1); Sodium 129 mmol/L (135-145); Total Protein 7.5 g/dL (6.5-8.0)
[2023-03-25 20:45] LABS: Osmolality, Serum 281 mosm/kg (281-305)
[2023-03-25 21:27] LABS: Appearance Urine Clear; Color Urine Yellow; Glucose Urine UA Negative (Negative); Leukocyte Esterase Urine Small (1+) (Negative); Nitrite Urine Negative (Negative); PH 7.5 (5.0-9.0); UMIC TRIGGER UACC YES; Urine Blood Negative (Negative); Urine Ketones Negative (Negative); Urine Protein 100 (2+) mg/dL (Neg-Trace)
[2023-03-25 21:32] LABS: Bacteria Urine None Seen (None Seen); Hyaline Casts Urine 0-2 /LPF (0-2); RBC Urine 0-2 /HPF (0-2); Squamous Epithelial Cell Urine 0-2 /HPF (0-2); UACC Culture Trigger YES; WBC Urine >50 /HPF (0-5)
[2023-03-25 22:02] LABS: Osmolality Urine 387 mosm/kg (373-1093)
[2023-03-25] MEDS: cefTRIAXone sodium 1 GM in 0.9 % Sodium Chloride 50 ML IV (22:42)
[2023-03-25 22:44] LABS: Anion Gap 14 (12-20); Blood Urea Nitrogen 19 mg/dL (9-16); Calcium 8.5 mg/dL (8.4-10.2); Carbon Dioxide 22 mmol/L (22-29); Chloride 98 mmol/L (96-108); Creatinine Clr Calc Pharmacy 56.8; Estimated Glomerular Filt Rate > 60; Glucose Random 140 mg/dL (60-115); Potassium 3.9 mmol/L (3.3-5.1); Sodium 130 mmol/L (135-145)
--- NOTE | 2023-03-25 23:00 | PM.IMHP ---
History of Present Illness Date of Service: 03/25/23 Chief Complaint: Syncope, confusion This is a 77-year-old female past medical history of CAD, CKD, dementia, type 1 diabetes, GERD, HTN, HLD, hypothyroidism, POTS- chronically wheelchair-bound, recurrent UTI, comes into the hospital brought in by her for increased confusion and a syncopal episode. Patient herself is confused at baseline therefore history is mostly obtained from her who is her primary critical care paramedic and is with her all the time.. Although she is awake alert and pleasant. states that on Saturday he noticed patient started becoming more confused, and acting funny, he called [email or web address] which is her usual primary care, he took her for a visit, they found her to have an elevated BP, they started her on a new medication and told her to follow-up. On Saturday he noticed that her confusion was worsening, she was sitting in a wheelchair when all of a sudden she had about a 5 minute syncopal episode where she was not answering him. She did not lose bowel or bladder control, did not have any jerking movements, when she returned to consciousness she was confused. Patient herself does not remember the incident. Has been states that she has had multiple recurrent UTIs in the past year, he was concerned that she had a UTI therefore decided to bring her to the hospital. No other complaints including no fever chills, patient has not had any chest pain, shortness of breath, no abdominal pain nausea or vomiting, no chest pain, she is incontinent of urine, has no diarrhea constipation, and no lower extremity edema On arrival to the ED patient hemodynamically stable no significant abnormal vitals except slightly elevated BP Labs are significant for WBC count of 5.0, sodium of 129, with a recent sodium 131 in November, UA positive for leukocyte Estrace, WBC, Patient started on antibiotics and will be admitted to telemetry Review of Systems Review of Systems: Yes all other systems are reviewed and are negative [facility] Medical History CAD (coronary artery disease) CKD (chronic kidney disease), stage III COVID-19 Dementia DM type 1 (diabetes mellitus, type 1) Esophageal dilatation GERD (gastroesophageal reflux disease) Glaucoma HTN (hypertension) Hypercholesterolemia Hyperkalemia Hypothyroid Neuropathy Orthostatic hypotension POTS (postural orthostatic tachycardia syndrome) PPD positive QT prolongation Retinopathy Vitamin B12 deficiency Social History Household Members: Spouse Housing: House Do you presently have visiting nurse or other home services: No Unable to assess alcohol history related to: Unable to respond Alcohol intake: never Patient Tobacco Use Status: Never used Tobacco Smoked in Last 30 Days: No e-Cigarette/Vaping Use: Never Used Second Hand Smoke Exposure: No Use of substances other than those prescribed or required for medical reasons: No Currently Displaying Signs/Symptoms of Drug Intoxication Withdrawal: No Any prior treatment program specific to substance use: No Have you been hit, kicked, punched, or otherwise hurt by someone within the past year? If so, by whom?: No Do you feel safe in your current relationship?: Yes Is there a partner from a previous relationship who is making you feel unsafe now?: No Are you made to feel afraid or neglected: No Advance Directives: Yes Advance Directives Information Provided: No Advance Directives on File: Yes Advance Directives Date on File: 10/23/21 Do you have thoughts of harming others: None Do you have a plan to hurt others: No Plan Recently lost weight without trying: No Eating poorly because of decreased appetite: No Nutrition Risks: No Nutritional Risk Patient : No : No Poor oral hygiene: No service: No Current occupational status: retired [employer] Allergies Allergy/AdvReac Type Severity Reaction Status Date / Time Sulfa (Sulfonamide Allergy Severe RASH/HIVES, Verified 02/14/22 14:30 Antibiotics) hives [SULFA (SULFONAMIDE ANTIBIOTICS)] insulin aspart Allergy Unknown HIVES Verified 02/14/22 14:30 [From NOVOLOG U-100 INSULIN ASPART] levofloxacin [From LEVAQUIN] AdvReac Intermediate BLOOD Verified 02/14/22 14:30 SUGAR DROPS milk [MILK] AdvReac Mild NAUSEA Verified 02/14/22 14:30 Active Medications: Current Medications Acetaminophen (Acetaminophen 325 Mg Tablet) 650 mg PO Q6H PRN PRN Reason: Pain, Mild (Pain Scale 1-3) Dextrose (Dextrose 50 % 25 Gm/50 Ml Syringe) 25 gm IVPUSH Q15M PRN; Protocol PRN Reason: per Hypoglycemia Standing Ord. Docusate Sodium (Docusate Sodium 100 Mg Capsule) 100 mg PO DAILY PRN PRN Reason: Constipation Enoxaparin Sodium (Enoxaparin Sodium 40 Mg/0.4 Ml Syringe) 40 mg SUBCUT Q24H [facility] Glucose (Glucose Gel 15 Gm Gel..Gram.) 15 gm PO Q15M PRN; Protocol PRN Reason: per Hypoglycemia Standing Ord. Ceftriaxone Sodium 1 gm/ (Sodium Chloride) 50 mls @ 100 mls/hr IV Q24H [facility] Insulin Human Lispro (Insulin Lispro 100 Unit/Ml 3 Ml Vial) 0 unit SUBCUT QIDACHS [facility]; Protocol Ondansetron HCl (Ondansetron Hcl 4 Mg/2 Ml Vial) 4 mg IVPUSH Q8H PRN PRN Reason: Nausea and Vomiting Pharmacy Consult (Consult Rx Perform Med Rec) 1 each MISCELLANE ONCE PRN PRN Reason: Consult order Sodium Chloride (0.9 % Sodium Chloride Flush 3 Ml Syringe) 3 ml IVFLUSH QSHIFT [facility] Home Medications Medication Instructions Recorded Confirmed Last Taken Type Lactobacillus rhamnosus GG 10 1 cap PO BID 10/14/21 03/25/23 01/20/22 History billion cell capsule (Culturelle) cholecalciferol (vitamin D3) 125 125 mcg PO DAILY@1700 10/14/21 03/25/23 01/20/22 History mcg (5,000 unit) tablet (Vitamin D3) cyanocobalamin (vitamin B-12) 500 500 mcg PO DAILY 10/14/21 03/25/23 01/20/22 History mcg tablet donepezil 10 mg tablet 10 mg PO DAILY 10/14/21 03/25/23 01/20/22 History insulin lispro 100 unit/mL 1 - 2 unit subcut DAILY@1630 10/14/21 03/25/23 01/19/22 History subcutaneous cartridge (Humalog U-100 Insulin) insulin lispro 100 unit/mL 3 - 4 unit subcut DAILY@1200 10/14/21 03/25/23 01/19/22 History subcutaneous cartridge (Humalog U-100 Insulin) insulin lispro 100 unit/mL 5 unit subcut DAILY 10/14/21 03/25/23 01/20/22 History subcutaneous cartridge (Humalog U-100 Insulin) methenamine hippurate 1 gram tablet 1 g PO BID@0900,1700 10/14/21 03/25/23 01/20/22 History simvastatin 20 mg tablet 20 mg PO BEDTIME 10/14/21 03/25/23 01/19/22 History sodium chloride 1 gram tablet 2 tab PO BID 01/20/22 03/25/23 01/19/22 History insulin lispro 100 unit/mL 1 sliding scale dose subcut TIDAC 03/12/22 03/25/23 Unknown History subcutaneous solution (Humalog U-100 Insulin) omeprazole magnesium 10 mg oral 40 mg PO BID 03/12/22 03/25/23 Unknown History suspension,delayed release ascorbic acid (vitamin C) 500 mg 500 mg PO BID 03/25/23 03/25/23 Unknown History tablet cranberry fruit 450 mg tablet 450 mg PO DAILY 03/25/23 03/25/23 Unknown History estradiol 0.01% (0.1 mg/gram) 0.5 appful vaginal 3XW 03/25/23 03/25/23 Unknown History vaginal cream (Estrace) insulin glargine 100 unit/mL (3 7 unit subcut BEDTIME 03/25/23 03/25/23 Unknown History mL) subcutaneous pen (Lantus Solostar U-100 Insulin) lisinopril 5 mg tablet 5 mg PO DAILY 03/25/23 03/25/23 Unknown History Physical Exam Vital Signs and Narrative: Vital Signs: Last Vital Signs Temp 98.0 F 03/25/23 17:44 Pulse 62 03/25/23 17:44 Resp 14 03/25/23 17:44 BP 174/81 H 03/25/23 17:44 Pulse Ox 97 03/25/23 17:44 O2 Del Method Room Air 03/25/23 17:44 BMI result Body Mass Index 19.8 Const: General: cooperative and no acute distress Eyes: General: appearance normal, both eyes and all related structures Resp: Effort & Inspection: normal respiratory effort Auscultation: clear to auscultation bilaterally Cardio: Rate: regular rate Rhythm: regular rhythm GI: Palpation (GI): Soft to palpation Auscultation: normal bowel sounds Skin: General skin exam: no rashes or lesions noted Neuro: Other: Confused but otherwise pleasant and answers simple yes and no questions Extrem: General: Yes normal to inspection and Yes no pedal edema Results Labs 03/25/23 19:02 03/25/23 22:10 Labs: Laboratory Results - last 24 hr 03/25/23 03/25/23 03/25/23 19:02 19:02 19:02 MCV 90.8 MCH 30.7 MCHC 33.8 RDW 12.7 Plt Count 266 MPV 9.8 Immature Gran % (Auto) 0.2 Neut % (Auto) 71.2 Lymph % (Auto) 15.3 L [place] % (Auto) 9.9 Eos % (Auto) 2.8 Baso % (Auto) 0.6 Lymph # (Auto) 0.8 L [place] # (Auto) 0.5 Eos # (Auto) 0.1 Baso # (Auto) 0.0 Abs Immat Gran (auto) 0.01 Absolute Neuts (auto) 3.6 Absolute Nucleated RBC 0.000 Nucleated RBC % (auto) 0.0 Anion Gap 16 Estim Creat Clear Calc 46.3 Estimated GFR 58 Random Glucose 165 H Osmolality 281 Lactic Acid Calcium 10.3 H D Total Bilirubin 0.6 Direct Bilirubin 0.2 AST 13 ALT 10 Alkaline Phosphatase 142 H Total Protein 7.5 Albumin 4.6 Lipase 13 Urine Color Urine Appearance Urine pH Ur Specific [place] Urine Protein Urine Glucose (UA) Urine Ketones Urine Blood Urine Nitrite Ur Leukocyte Esterase Urine RBC Urine WBC Ur Squamous Epith Cells Urine Bacteria Hyaline Casts Urine Osmolality COVID-19 ([facility]) COVID-19 Clin Com 03/25/23 03/25/23 03/25/23 19:02 19:02 21:16 MCV MCH MCHC RDW Plt Count MPV Immature Gran % (Auto) Neut % (Auto) Lymph % (Auto) [place] % (Auto) Eos % (Auto) Baso % (Auto) Lymph # (Auto) [place] # (Auto) Eos # (Auto) Baso # (Auto) Abs Immat Gran (auto) Absolute Neuts (auto) Absolute Nucleated RBC Nucleated RBC % (auto) Anion Gap Estim Creat Clear Calc Estimated GFR Random Glucose Osmolality Lactic Acid 0.7 Calcium Total Bilirubin Direct Bilirubin AST ALT Alkaline Phosphatase Total Protein Albumin Lipase Urine Color Yellow Urine Appearance Clear Urine pH 7.5 Ur Specific [place] 1.010 Urine Protein 100 (2+) H Urine Glucose (UA) Negative Urine Ketones Negative Urine Blood Negative Urine Nitrite Negative Ur Leukocyte Esterase Small (1+) H Urine RBC 0-2 Urine WBC >50 H Ur Squamous Epith Cells 0-2 Urine Bacteria None Seen Hyaline Casts 0-2 Urine Osmolality COVID-19 ([facility]) Negative COVID-19 Clin Com See Note 03/25/23 03/25/23 21:16 22:10 MCV MCH MCHC RDW Plt Count MPV Immature Gran % (Auto) Neut % (Auto) Lymph % (Auto) [place] % (Auto) Eos % (Auto) Baso % (Auto) Lymph # (Auto) [place] # (Auto) Eos # (Auto) Baso # (Auto) Abs Immat Gran (auto) Absolute Neuts (auto) Absolute Nucleated RBC Nucleated RBC % (auto) Anion Gap 14 Estim Creat Clear Calc 56.8 Estimated GFR > 60 Random Glucose 140 H Osmolality Lactic Acid Calcium 8.5 D Total Bilirubin Direct Bilirubin AST ALT Alkaline Phosphatase Total Protein Albumin Lipase Urine Color Urine Appearance Urine pH Ur Specific [place] Urine Protein Urine Glucose (UA) Urine Ketones Urine Blood Urine Nitrite Ur Leukocyte Esterase Urine RBC Urine WBC Ur Squamous Epith Cells Urine Bacteria Hyaline Casts Urine Osmolality 387 COVID-19 ([facility]) COVID-19 Clin Com Imaging Radiologist's Impressions: Impressions Chest X-Ray 03/25/23 19:29 IMPRESSION: Chronic appearing changes similar to the 03/12/2022 study. No acute superimposed process. Head CT 03/25/23 20:14 IMPRESSION: 1. No evidence of acute intracranial hemorrhage or edematous territorial infarction. 2. Chronic microangiopathy and generalized cerebral volume loss. Assessment and Plan (1) Hyponatremia: Status: Acute (2) Syncope: Status: Acute (3) Urinary tract infection: Status: Acute Plan 77-year-old female with past medical history as mentioned above comes into the hospital syncopal episode as well as confusion # encephalopathy - likely secondary to metabolic toxic encephalopathy in the setting of acute UTI versus hyponatremia - will treat both as below - mentation - demented at baseline # hyponatremia - acute on chronic - sodium 129 - euvolemic - at this time will start her on gentle hydration - repeat sodium q.6 hours - nephrology consulted - continue home sodium chloride tablets # acute UTI - has recurrent UTIs her - will treat with sensitive medication per prior microbiology - follow cultures # syncope - possibly secondary to acute UTI as well as hyponatremia - EKGc with slightly elevated QTc of 464, but otherwise normal sinus rhythm - monitor on telemetry # diabetes - resume home Lantus - placed on low-dose sliding scale insulin - diabetic diet # dementia - continue donepezil DVT prophylaxis: Lovenox - monitor on telemetry Time Spent With Patient Time: Total time managing care of this patient today ____ minutes. Quality Stroke Does the patient have a stroke diagnosis?: No VTE Prior VTE?: No VTE Risk Level:: Medical - moderate - high VTE Device Contraindication: Treatment Not Indicated VTE Drug Contraindication: N/A - Med Ordered
--- OUTSIDE RECORDS SUMMARY | 2023-03-25 23:06 | XMS_ITS ---
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 Problem Esophageal obstruction K22.2 Active 66560966 Problem Esophageal dysphagia R13.19 Active 408 18045 Problem Dysphagia R13.10 Active 28349699 Problem Esophagitis, erosive K22.10 Active 308 91524 Problem Acute diarrhea R19.7 Active 553429637 Problem Erosive esophagitis K22.10 Active Problem Esophageal stricture K22.2 Active Problem Esophageal dysmotility K22.4 Active 348093345 Problem Gastroesophageal reflux K21.9 Active 494450059 ALLERGIES Substance Reaction Event Type Date Status Levaquin Unknown Drug Allergy Dec, Active miterine Unknown Non Drug Allergy Dec, Active Sulfa Antibiotics Unknown Drug Allergy Dec, Act delmi ENCOUNTERS Encounter Location Date Diagnosis [facility] [address] [place] [phone] Dec, [facility] [address] [place] [phone] Dec, [facility] [address] [place] [phone] 06 Apr, 2023 Esophageal dysmotility K22.4 ; Erosive esophagitis K22.10 and Esophageal stricture K22.2 [facility] [address] [place] [address] 13 Oct, 2022 [facility] [address] [place] [address] 30 Aug, 2022 [facility] [address] [place] [address] 28 Aug, 2022 [facility] [address] [place] [address] 15 Jul, 2022 [facility] [address] [place] [address] 11 Jul, 2022 Esophageal dysmotility K22.4 ; Erosive esophagitis K22.10 and Esophageal stricture K22.2 [facility] [address] [place] [address] Jul, [facility] [address] [place] [address] Jun, [facility] [address] [place] [address] Jun, [facility] [address] [place] [address] Apr, [facility] [address] [place] [address] Apr, [facility] [address] [place] [address] Mar, [facility] [address] [place] [address] Mar, [facility] [address] [place] [address] Mar, [facility] [address] [place] [address] Mar, Esophageal dysmotility K22.4 ; Erosive esophagitis K22.10 and Esophageal stricture K22.2 [facility] [address] [place] [address] Mar, [facility] [address] [place] [address] Feb, [facility] [address] [place], [place] [address] [address] 16 Feb, 2022 Acute diarrhea R19.7 [facility] [address] [place], [place] [address] 08 Feb, 2022 Dysphagia R13.10 [facility] Outpatient [address] [place], [place] [phone] 07 Feb, 2022 Dysphagia R13.10 ; Gastroesophageal reflux K21.9 and Hiatal hernia K44.9 [facility] [address] [place] [address] 03 Feb, 2022 [facility] [address] [place] [phone] January, [facility] [address] [place] [phone] January, [facility] [address] [place] [phone] January, Erosive esophagitis K22.10 and Esophageal dysphagia R13.19 [facility] [address] [place] [phone] 17 Jan, 2022 [facility] [address] [place] [phone] Dec, [facility] Outpatient [address] [place] [id number] Nov, [facility] ER [address] [place] [id number] Apr, [facility] Outpatient [address] [place] [id number] Nov, [facility] Outpatient [address] [place] [id number] Oct, [facility] ER [address] [place] [id number] Oct, IMMUNIZATIONS Vaccine Route Administration Date Status [...] 2022 [facility] January 28, 2022 TV 21+ Minutes December 20, 2022 RESULTS Name Result Date Reference [...] Subscriber Date of Group No MEDICAID OF [employer] [address] [facility] [id number] [place] [employer] JADEN Crenshaw [id number] [employer] [id number] [facility] [id number] [employer] JADEN Crenshaw [id number]
[2023-03-26] VITALS (9 sets, daily range): BP systolic 136–198; BP diastolic 70–88; PULSE 67–88; RESP 16–20; TEMP 36.2–37.1; O2SAT 94–98
--- NOTE | 2023-03-26 00:16 | PC.NURSE ---
Pt admit under obs, report given to Viji ZAPATA on [facility], awaiting transport to room 459 via stretcher by tabitha Rojas.
[2023-03-26] MEDS: Enoxaparin Sodium 40 MG/0.4 ML SYRINGE SUBCUT ×2 (00:21→22:21)
--- NOTE | 2023-03-26 00:25 | PC.NURSE ---
This RN called and spoke with pts Dougie and update on admission to room 459.
[2023-03-26] MEDS: 0.9 % Sodium Chloride Flush 3 ML SYRINGE IVFLUSH ×2 (01:42→08:30)
[2023-03-26 06:12] LABS: Alanine Aminotransferase 11 U/L (0-31); Albumin Level 3.3 g/dL (3.5-5.0); Alkaline Phosphatase 85 U/L (39-117); Anion Gap 14 (12-20); Aspartate Amino Transferase 11 U/L (5-31); Bilirubin Total 0.6 mg/dL (0.0-1.0); Blood Urea Nitrogen 17 mg/dL (9-16); Calcium 8.5 mg/dL (8.4-10.2); Carbon Dioxide 20 mmol/L (22-29); Chloride 99 mmol/L (96-108); Creatinine Clr Calc Pharmacy 59.1; Estimated Glomerular Filt Rate > 60; Glucose Random 163 mg/dL (60-115); Potassium 4.1 mmol/L (3.3-5.1); Sodium 129 mmol/L (135-145); Total Protein 5.5 g/dL (6.5-8.0)
[2023-03-26 07:37] LABS: Glucose, Whole Blood 181 mg/dL (60-115)
--- NOTE | 2023-03-26 08:27 | P.PNIM_ITS ---
Subjective Subjective Date of Service: 03/26/23 Physical Exam Vital Signs: Vital Signs: Last Vital Signs Temp 97.3 F 03/26/23 07:28 Pulse 76 03/26/23 07:28 Resp 20 03/26/23 07:28 BP 136/76 03/26/23 07:28 Pulse Ox 94 03/26/23 07:28 O2 Del Method Room Air 03/26/23 07:28 BMI result Body Mass Index 19.8 Objective Data Active Medications Acetaminophen (Acetaminophen 325 Mg Tablet) 650 mg PO Q6H PRN PRN Reason: Pain, Mild (Pain Scale 1-3) Ascorbic Acid (Ascorbic Acid 500 Mg Tablet) 500 mg PO BID [facility] Atorvastatin Calcium (Atorvastatin Calcium 10 Mg Tablet) 10 mg PO BEDTIME [facility] Cyanocobalamin (Cyanocobalamin (Vitamin B-12) 500 Mcg Tablet) 500 mcg PO DAILY [facility] Dextrose (Dextrose 50 % 25 Gm/50 Ml Syringe) 25 gm IVPUSH Q15M PRN; Protocol PRN Reason: per Hypoglycemia Standing Ord. Docusate Sodium (Docusate Sodium 100 Mg Capsule) 100 mg PO DAILY PRN PRN Reason: Constipation Donepezil HCl (Donepezil Hcl 10 Mg Tablet) 10 mg PO DAILY [facility] Enoxaparin Sodium (Enoxaparin Sodium 40 Mg/0.4 Ml Syringe) 40 mg SUBCUT Q24H [facility] Last Admin: 03/26/23 00:21 Dose: 40 mg Documented By: JIHAN Glucose (Glucose Gel 15 Gm Gel..Gram.) 15 gm PO Q15M PRN; Protocol PRN Reason: per Hypoglycemia Standing Ord. Ceftriaxone Sodium 1 gm/ (Sodium Chloride) 50 mls @ 100 mls/hr IV Q24H [facility] Lactated Ringer's (Lr) 1,000 mls @ 80 mls/hr IVCONT .[id number] [facility] Insulin Glargine (Insulin Glargine,Hum.Rec.Anlog 100 Unit/Ml 10 Ml Vial) 7 unit SUBCUT BEDTIME [facility] Insulin Human Lispro (Insulin Lispro 100 Unit/Ml 3 Ml Vial) 0 unit SUBCUT QIDACHS [facility]; Protocol Lisinopril (Lisinopril 5 Mg Tablet) 5 mg PO DAILY [facility]; Protocol Non-Formulary Medication (Estradiol [Estrace]) 0.5 appful VAGINAL MoWeFr [facility] Omeprazole (Omeprazole 40 Mg Capsule.Dr) 40 mg PO BID [facility] Ondansetron HCl (Ondansetron Hcl 4 Mg/2 Ml Vial) 4 mg IVPUSH Q8H PRN PRN Reason: Nausea and Vomiting Pharmacy Consult (Consult Rx Perform Med Rec) 1 each MISCELLANE ONCE PRN PRN Reason: Consult order Sodium Chloride (0.9 % Sodium Chloride Flush 3 Ml Syringe) 3 ml IVFLUSH QSHIFT [facility] Last Admin: 03/26/23 01:42 Dose: 3 ml Documented By: GAURANG Sodium Chloride (Sodium Chloride Tab 1 Gm Tablet) 2 gm PO BID [facility] Vitamin D (Cholecalciferol (Vitamin D3) 25 Mcg Tablet) 125 mcg PO DAILY@1700 [facility] Labs 03/25/23 19:02 03/26/23 05:35 Labs: Laboratory Results - last 24 hr 03/25/23 03/25/23 03/25/23 19:02 19:02 19:02 MCV 90.8 MCH 30.7 MCHC 33.8 RDW 12.7 Plt Count 266 MPV 9.8 Immature Gran % (Auto) 0.2 Neut % (Auto) 71.2 Lymph % (Auto) 15.3 L Graham % (Auto) 9.9 Eos % (Auto) 2.8 Baso % (Auto) 0.6 Lymph # (Auto) 0.8 L Graham # (Auto) 0.5 Eos # (Auto) 0.1 Baso # (Auto) 0.0 Abs Immat Gran (auto) 0.01 Absolute Neuts (auto) 3.6 Absolute Nucleated RBC 0.000 Nucleated RBC % (auto) 0.0 Anion Gap 16 Estim Creat Clear Calc 46.3 Estimated GFR 58 POC Glucose Random Glucose 165 H Osmolality 281 Lactic Acid Calcium 10.3 H D Total Bilirubin 0.6 Direct Bilirubin 0.2 AST 13 ALT 10 Alkaline Phosphatase 142 H Total Protein 7.5 Albumin 4.6 Lipase 13 Urine Color Urine Appearance Urine pH Ur Specific [place] Urine Protein Urine Glucose (UA) Urine Ketones Urine Blood Urine Nitrite Ur Leukocyte Esterase Urine RBC Urine WBC Ur Squamous Epith Cells Urine Bacteria Hyaline Casts Urine Osmolality COVID-19 ([facility]) COVID-19 Clin Com 03/25/23 03/25/23 03/25/23 19:02 19:02 21:16 MCV MCH MCHC RDW Plt Count MPV Immature Gran % (Auto) Neut % (Auto) Lymph % (Auto) Graham % (Auto) Eos % (Auto) Baso % (Auto) Lymph # (Auto) Graham # (Auto) Eos # (Auto) Baso # (Auto) Abs Immat Gran (auto) Absolute Neuts (auto) Absolute Nucleated RBC Nucleated RBC % (auto) Anion Gap Estim Creat Clear Calc Estimated GFR POC Glucose Random Glucose Osmolality Lactic Acid 0.7 Calcium Total Bilirubin Direct Bilirubin AST ALT Alkaline Phosphatase Total Protein Albumin Lipase Urine Color Yellow Urine Appearance Clear Urine pH 7.5 Ur Specific [place] 1.010 Urine Protein 100 (2+) H Urine Glucose (UA) Negative Urine Ketones Negative Urine Blood Negative Urine Nitrite Negative Ur Leukocyte Esterase Small (1+) H Urine RBC 0-2 Urine WBC >50 H Ur Squamous Epith Cells 0-2 Urine Bacteria None Seen Hyaline Casts 0-2 Urine Osmolality COVID-19 ([facility]) Negative COVID-19 Clin Com See Note 03/25/23 03/25/23 03/26/23 21:16 22:10 05:35 MCV MCH MCHC RDW Plt Count MPV Immature Gran % (Auto) Neut % (Auto) Lymph % (Auto) Graham % (Auto) Eos % (Auto) Baso % (Auto) Lymph # (Auto) Graham # (Auto) Eos # (Auto) Baso # (Auto) Abs Immat Gran (auto) Absolute Neuts (auto) Absolute Nucleated RBC Nucleated RBC % (auto) Anion Gap 14 14 Estim Creat Clear Calc 56.8 59.1 Estimated GFR > 60 > 60 POC Glucose Random Glucose 140 H 163 H Osmolality Lactic Acid Calcium 8.5 D 8.5 Total Bilirubin 0.6 Direct Bilirubin AST 11 ALT 11 Alkaline Phosphatase 85 Total Protein 5.5 L Albumin 3.3 L Lipase Urine Color Urine Appearance Urine pH Ur Specific [place] Urine Protein Urine Glucose (UA) Urine Ketones Urine Blood Urine Nitrite Ur Leukocyte Esterase Urine RBC Urine WBC Ur Squamous Epith Cells Urine Bacteria Hyaline Casts Urine Osmolality 387 COVID-19 ([facility]) COVID-19 Clin Com 03/26/23 07:33 MCV MCH MCHC RDW Plt Count MPV Immature Gran % (Auto) Neut % (Auto) Lymph % (Auto) Graham % (Auto) Eos % (Auto) Baso % (Auto) Lymph # (Auto) Graham # (Auto) Eos # (Auto) Baso # (Auto) Abs Immat Gran (auto) Absolute Neuts (auto) Absolute Nucleated RBC Nucleated RBC % (auto) Anion Gap Estim Creat Clear Calc Estimated GFR POC Glucose 181 H Random Glucose Osmolality Lactic Acid Calcium Total Bilirubin Direct Bilirubin AST ALT Alkaline Phosphatase Total Protein Albumin Lipase Urine Color Urine Appearance Urine pH Ur Specific [place] Urine Protein Urine Glucose (UA) Urine Ketones Urine Blood Urine Nitrite Ur Leukocyte Esterase Urine RBC Urine WBC Ur Squamous Epith Cells Urine Bacteria Hyaline Casts Urine Osmolality COVID-19 ([facility]) COVID-19 Clin Com Assessment and Plan (1) Hyponatremia: Status: Acute Plan 77-year-old female with past medical history as mentioned above comes into the hospital syncopal episode as well as confusion Toxic metabolic encephalopathy in the setting of acute UTI versus hyponatremia will treat both as below demented at baseline hyponatremia acute on chronic sodium 129 euvolemic gentle hydration nephrology consulted continue home sodium chloride tablets acute UTI has recurrent UTIs her [place] for now follow cultures syncope possibly secondary to acute UTI as well as hyponatremia EKGc with slightly elevated QTc of 464, but otherwise normal sinus rhythm monitor on telemetry diabetes resume home Lantus placed on low-dose sliding scale insulin diabetic diet dementia continue donepezil DVT prophylaxis:? Lovenox full code attending Dr. Leigh Continue hospital stay for treatment of acute encephalopathy secondary to acute encephalopathy secondary to urinary tract infection requiring IV antibiotics and follow-up of cultures Time Spent With Patient Time: Total time managing care of this patient today ____ minutes. Quality Stroke Does the patient have a stroke diagnosis?: No VTE Prior VTE?: No VTE Risk Level:: Medical - moderate - high VTE Device Contraindication: Treatment Not Indicated VTE Drug Contraindication: N/A - Med Ordered
[2023-03-26] MEDS: lisinopriL 5 MG TABLET PO (08:29)
[2023-03-26] MEDS: Donepezil HCl 10 MG TABLET PO (08:29)
[2023-03-26] MEDS: Cyanocobalamin (Vitamin B-12) 500 MCG TABLET PO (08:29)
[2023-03-26] MEDS: Insulin Lispro 100 UNIT/ML 3 ML VIAL SUBCUT ×4 (08:29→20:40)
[2023-03-26] MEDS: Omeprazole 40 MG CAPSULE.DR PO ×2 (08:29→20:40)
[2023-03-26] MEDS: Ascorbic Acid 500 MG TABLET PO ×2 (08:30→20:40)
--- NOTE | 2023-03-26 08:30 | MHC.CM.PN ---
Patient is documented to be confused at baseline; CM spoke with /HCP/Angel @ [phone] and addressed STEELE with him. Angel stated that he did not want/need a copy of the STEELE because he is aware of what OBSERVATION status is. Patient lives in a house with her and she relies mostly on a w/c for mobility. Patient is part of the [facility] program but she had no active services in the home [employer]. Home is the goal and CM has initiated and will follow for dc planning. Patient is elijah vernon'henry x4 and her PCP is Dr. Stephenson thru [facility].
[2023-03-26] MEDS: Lactated Ringers 1,000 ML 80 ML IVCONT (08:34)
[2023-03-26 11:39] LABS: Glucose, Whole Blood 293 mg/dL (60-115)
[2023-03-26] MEDS: Sodium Chloride Tab 1 GM TABLET 2 GM PO ×2 (11:50→20:40)
[2023-03-26 13:27] LABS: Sodium 130 mmol/L (135-145)
[2023-03-26 16:36] LABS: Glucose, Whole Blood 253 mg/dL (60-115)
[2023-03-26] MEDS: Cholecalciferol (Vitamin D3) 25 MCG TABLET 125 MCG PO (16:51)
[2023-03-26 19:56] LABS: Glucose, Whole Blood 216 mg/dL (60-115)
[2023-03-26] MEDS: Atorvastatin Calcium 10 MG TABLET PO (20:40)
[2023-03-26] MEDS: Insulin Glargine,Hum.rec.anlog 100 UNIT/ML 10 ML VIAL 7 UNIT SUBCUT (20:41)
[2023-03-26] MEDS: cefTRIAXone sodium 1 GM in 0.9 % Sodium Chloride 50 ML IV (22:20)
[2023-03-27] MEDS: Lactated Ringers 1,000 ML 80 ML IVCONT ×2 (00:01→16:04)
[2023-03-27 03:32] VITALS: BP 141/70; PULSE 90; RESP 16; TEMP 36.2; O2SAT 97
[2023-03-27 07:39] VITALS: BP 144/72; PULSE 95; RESP 18; TEMP 36.4; O2SAT 96
[2023-03-27 07:47] LABS: Glucose, Whole Blood 165 mg/dL (60-115)
[2023-03-27] MEDS: Insulin Lispro 100 UNIT/ML 3 ML VIAL SUBCUT ×4 (08:19→20:58)
[2023-03-27] MEDS: lisinopriL 5 MG TABLET PO (08:19)
[2023-03-27] MEDS: Ascorbic Acid 500 MG TABLET PO ×2 (08:19→20:59)
[2023-03-27] MEDS: Sodium Chloride Tab 1 GM TABLET 2 GM PO ×2 (08:19→20:59)
[2023-03-27] MEDS: Donepezil HCl 10 MG TABLET PO (08:20)
[2023-03-27] MEDS: Cyanocobalamin (Vitamin B-12) 500 MCG TABLET PO (08:20)
[2023-03-27] MEDS: Omeprazole 40 MG CAPSULE.DR PO ×2 (08:20→20:59)
--- NOTE | 2023-03-27 09:37 | CONS_ITS ---
DATE OF SERVICE: 03/26/2023 REASON FOR CONSULTATION: Asked to see patient to assist in evaluation and management of patient's hyponatremia as reflected by serum sodium of 129 on admission on March 25. HISTORY OF PRESENT ILLNESS: In summary, the patient is a 77-year-old with a history of coronary disease, dementia, and diabetes, GERD, hypertension, hyperlipidemia, hypothyroidism, history of POTS, and she is chronically wheelchair bound, recurrent UTIs, brought into the hospital for increasing confusion and what appears to be a syncopal episode. And a history of hyponatremia back in 2021. She had a serum sodium as low as 113. The patient is a poor historian. Information obtained from electronic medical record. PAST MEDICAL HISTORY: As outlined above. MEDICATIONS: Her medications on admission are noted in the admitting notes and in particular she is not on a thiazide diuretic. She is, however, maintained on salt tablets apparently 2 g twice a day chronically. SOCIAL HISTORY: She is a nonsmoker, nondrinker. No illicit drug use. REVIEW OF SYSTEMS: As noted above. FAMILY HISTORY: Noncontributory. PHYSICAL EXAMINATION: VITAL SIGNS: Blood pressure of 140/78 with a heart rate in the 70s. HEAD: Atraumatic and normocephalic. NECK: Supple. Mucous membranes moist. LUNGS: Breath sounds bilaterally. CARDIAC: Regular rate and rhythm without rub. ABDOMEN: Soft, nontender. Good bowel sounds. No CVA tenderness. EXTREMITIES: Show no edema. LABORATORY DATA: From this morning show sodium 129, potassium 4, chloride 99, bicarb 20, BUN 17, creatinine 0.7, blood sugar 163. As mentioned, on admission, her serum sodium was 129. Urine studies showed urine osmolality 387. There is no urine sodium. IMPRESSION: 77-year-old admitted with a syncopal episode, noted to have hyponatremia. 1. Euvolemic hyponatremia. 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 Her hyponatremia seems to be mild and she is chronically maintained on salt tablets, which we should re-start. 2. Altered mental status and questionable syncopal episode. She is having further evaluation for this. RECOMMENDATION: At this time include continue to track serum sodium. Continue her on salt tablets. Placed on a fluid restriction of 1500 cc for 24 hours. We will check an a.m. cortisol level and a.m. TSH. We will follow the patient closely with the team. MD MATT Hernández/FLORESITA / [phone]
[2023-03-27 11:30] LABS: Anion Gap 10 (12-20); Blood Urea Nitrogen 20 mg/dL (9-16); Calcium 9.2 mg/dL (8.4-10.2); Carbon Dioxide 25 mmol/L (22-29); Chloride 100 mmol/L (96-108); Creatinine Clr Calc Pharmacy 55.3; Estimated Glomerular Filt Rate > 60; Glucose Random 232 mg/dL (60-115); Potassium 4.2 mmol/L (3.3-5.1); Sodium 131 mmol/L (135-145)
--- NOTE | 2023-03-27 11:40 | HO.PM.IMPN ---
Subjective Subjective Date of Service: 03/27/23 Physical Exam Vital Signs: Vital Signs: Last Vital Signs Temp 97.6 F 03/27/23 07:39 Pulse 95 03/27/23 07:39 Resp 18 03/27/23 07:39 BP 144/72 H 03/27/23 07:39 Pulse Ox 96 03/27/23 07:39 O2 Del Method Room Air 03/27/23 07:39 BMI result Body Mass Index 19.8 Objective Data Active Medications Acetaminophen (Acetaminophen 325 Mg Tablet) 650 mg PO Q6H PRN PRN Reason: Pain, Mild (Pain Scale 1-3) Ascorbic Acid (Ascorbic Acid 500 Mg Tablet) 500 mg PO BID [facility] Last Admin: 03/27/23 08:19 Dose: 500 mg Documented By: BOOKER Atorvastatin Calcium (Atorvastatin Calcium 10 Mg Tablet) 10 mg PO BEDTIME [facility] Last Admin: 03/26/23 20:40 Dose: 10 mg Documented By: MARIBEL Cyanocobalamin (Cyanocobalamin (Vitamin B-12) 500 Mcg Tablet) 500 mcg PO DAILY [facility] Last Admin: 03/27/23 08:20 Dose: 500 mcg Documented By: BOOKER Dextrose (Dextrose 50 % 25 Gm/50 Ml Syringe) 25 gm IVPUSH Q15M PRN; Protocol PRN Reason: per Hypoglycemia Standing Ord. Docusate Sodium (Docusate Sodium 100 Mg Capsule) 100 mg PO DAILY PRN PRN Reason: Constipation Donepezil HCl (Donepezil Hcl 10 Mg Tablet) 10 mg PO DAILY [facility] Last Admin: 03/27/23 08:20 Dose: 10 mg Documented By: BOOKER Enoxaparin Sodium (Enoxaparin Sodium 40 Mg/0.4 Ml Syringe) 40 mg SUBCUT Q24H [facility] Last Admin: 03/26/23 22:21 Dose: 40 mg Documented By: MARIBEL Glucose (Glucose Gel 15 Gm Gel..Gram.) 15 gm PO Q15M PRN; Protocol PRN Reason: per Hypoglycemia Standing Ord. Ceftriaxone Sodium 1 gm/ (Sodium Chloride) 50 mls @ 100 mls/hr IV Q24H [facility] Last Infusion: 03/26/23 23:15 Dose: 0 mls/hr Documented By: MARIBEL Lactated Ringer's (Lr) 1,000 mls @ 80 mls/hr IVCONT .[id number] [facility] Last Admin: 03/27/23 08:19 Dose: Not Given Documented By: BOOKER Non-Admin Reason: IV Running Insulin Glargine (Insulin Glargine,Hum.Rec.Anlog 100 Unit/Ml 10 Ml Vial) 7 unit SUBCUT BEDTIME [facility] Last Admin: 03/26/23 20:41 Dose: 7 unit Documented By: MARIBEL Insulin Human Lispro (Insulin Lispro 100 Unit/Ml 3 Ml Vial) 0 unit SUBCUT QIDACHS [facility]; Protocol Last Admin: 03/27/23 08:19 Dose: 2 unit Documented By: BOOKER Lisinopril (Lisinopril 5 Mg Tablet) 5 mg PO DAILY [facility]; Protocol Last Admin: 03/27/23 08:19 Dose: 5 mg Documented By: BOOKER Non-Formulary Medication (Estradiol [Estrace]) 0.5 appful VAGINAL MoWeFr [facility] Omeprazole (Omeprazole 40 Mg Capsule.) 40 mg PO BID [facility] Last Admin: 03/27/23 08:20 Dose: 40 mg Documented By: BOOKER Ondansetron HCl (Ondansetron Hcl 4 Mg/2 Ml Vial) 4 mg IVPUSH Q8H PRN PRN Reason: Nausea and Vomiting Pharmacy Consult (Consult Rx Perform Med Rec) 1 each MISCELLANE ONCE PRN PRN Reason: Consult order Sodium Chloride (0.9 % Sodium Chloride Flush 3 Ml Syringe) 3 ml IVFLUSH QSHIFT [facility] Last Admin: 03/27/23 08:19 Dose: Not Given Documented By: BOOKER Non-Admin Reason: IV Running Sodium Chloride (Sodium Chloride Tab 1 Gm Tablet) 2 gm PO BID [facility] Last Admin: 03/27/23 08:19 Dose: 2 gm Documented By: BOOKER Vitamin D (Cholecalciferol (Vitamin D3) 25 Mcg Tablet) 125 mcg PO DAILY@1700 [facility] Last Admin: 03/26/23 16:51 Dose: 125 mcg Documented By: SHANNEN Labs 03/25/23 19:02 03/27/23 09:42 Labs: Laboratory Results - last 24 hr 03/26/23 03/26/23 03/27/23 16:30 19:45 07:43 Anion Gap Estim Creat Clear Calc Estimated GFR POC Glucose 253 H 216 H 165 H Random Glucose Calcium 03/27/23 09:42 Anion Gap 10 L Estim Creat Clear Calc 55.3 Estimated GFR > 60 POC Glucose Random Glucose 232 H Calcium 9.2 D Microbiology Microbiology Results: Microbiology 03/25/23 22:09 Blood Culture - Preliminary Blood - Venous No growth after 24 hours. 03/25/23 22:10 Blood Culture - Preliminary Blood - Venous No growth after 24 hours. 03/25/23 Unknown Urine Culture - Preliminary Urine clean catch - Urine robertson top No growth to date. Assessment and Plan (1) Hyponatremia: Status: Acute Plan 77-year-old female with past medical history as mentioned above comes into the hospital syncopal episode as well as confusion Toxic metabolic encephalopathy in the setting of acute UTI and hyponatremia will treat both as below demented at baseline hyponatremia acute on chronic sodium 131 euvolemic gentle hydration nephrology consulted>check am cortisol and TSH, 24 hours 1.5L fluid restriction continue home sodium chloride tablets acute UTI has recurrent UTIs her [place] for now should follow with urology o/p neg urine cx syncope no episodes while inpatient possibly secondary to acute UTI as well as hyponatremia EKGc with slightly elevated QTc of 464, but otherwise normal sinus rhythm monitor on telemetry diabetes Lantus ss diabetic diet dementia continue donepezil DVT prophylaxis:? Lovenox full code attending Dr. Leigh Continue hospital stay for treatment of acute encephalopathy secondary to acute encephalopathy secondary to urinary tract infection requiring IV antibiotics and follow-up of cultures Time Spent With Patient Time: Total time managing care of this patient today ____ minutes. Quality Stroke Does the patient have a stroke diagnosis?: No VTE Prior VTE?: No VTE Risk Level:: Medical - moderate - high VTE Device Contraindication: Treatment Not Indicated VTE Drug Contraindication: N/A - Med Ordered
[2023-03-27 11:52] LABS: Glucose, Whole Blood 220 mg/dL (60-115)
[2023-03-27 12:00] VITALS: BP 139/85; PULSE 82; RESP 20; TEMP 36.8; O2SAT 94
--- NOTE | 2023-03-27 14:27 | MHC.CM.PN ---
PT is not recommending home PT; PT eval has been faxed to [facility], as she requested,at [phone].Patient needs AM labs, per Nephrology, and she is not yet medically cleared for dc. CM will follow and will fax dc summary to Ev[facility], when available.
[2023-03-27 14:53] VITALS: BP 180/54; PULSE 83; RESP 18; TEMP 36.7; O2SAT 94
[2023-03-27 15:40] LABS: Glucose, Whole Blood 177 mg/dL (60-115)
[2023-03-27] MEDS: Cholecalciferol (Vitamin D3) 25 MCG TABLET 125 MCG PO (17:34)
[2023-03-27] MEDS: 0.9 % Sodium Chloride Flush 3 ML SYRINGE IVFLUSH (18:10)
[2023-03-27 19:05] VITALS: BP 188/76; PULSE 84; RESP 18; TEMP 36.7; O2SAT 97
[2023-03-27 20:54] LABS: Glucose, Whole Blood 277 mg/dL (60-115)
[2023-03-27] MEDS: hydrALAZINE HCl 20 MG/ML VIAL 5 MG IVPUSH (20:55)
[2023-03-27] MEDS: Insulin Glargine,Hum.rec.anlog 100 UNIT/ML 10 ML VIAL 7 UNIT SUBCUT (20:58)
[2023-03-27] MEDS: Atorvastatin Calcium 10 MG TABLET PO (20:59)
[2023-03-27 21:38] VITALS: BP 140/57
[2023-03-28] VITALS: BP 132/62; PULSE 80; RESP 20; TEMP 36.1; O2SAT 96
[2023-03-28] MEDS: Enoxaparin Sodium 40 MG/0.4 ML SYRINGE SUBCUT (00:25)
[2023-03-28] MEDS: cefTRIAXone sodium 1 GM in 0.9 % Sodium Chloride 50 ML IV (00:26)
[2023-03-28] MEDS: 0.9 % Sodium Chloride Flush 3 ML SYRINGE IVFLUSH (00:26)
--- NOTE | 2023-03-28 00:41 | PC.NURSE ---
Assumed care at 07:00. Paient alert and oriented x3, slightly vague about time. OOB to commode today, well tolerated. Can stand and pivot. Patient in evening with BP 200/87, HR 84; Manual BP 188/76. asymptomatic, notified, one time 5 mg IV hydralazine witih effect. BM today. Skin with scattered bruising. Purewick with ample pale yellow urine.
[2023-03-28 03:22] VITALS: BP 140/67; PULSE 86; RESP 20; TEMP 36.6; O2SAT 95
[2023-03-28] MEDS: Lactated Ringers 1,000 ML 80 ML IVCONT (05:36)
[2023-03-28 07:22] LABS: Anion Gap 13 (12-20); Blood Urea Nitrogen 18 mg/dL (9-16); Carbon Dioxide 24 mmol/L (22-29); Chloride 102 mmol/L (96-108); Creatinine Clr Calc Pharmacy 58.3; Estimated Glomerular Filt Rate > 60; Glucose Random 167 mg/dL (60-115); Potassium 3.7 mmol/L (3.3-5.1); Sodium 135 mmol/L (135-145)
[2023-03-28 07:31] VITALS: BP 140/76; PULSE 90; RESP 18; TEMP 36.6; O2SAT 94
[2023-03-28 07:38] LABS: Glucose, Whole Blood 163 mg/dL (60-115)
[2023-03-28 07:47] LABS: Thyroid Stimulating Hormone 2.98 uIU/mL (0.32-4.0)
[2023-03-28 07:55] LABS: Cortisol Random 10.1 ug/dL
[2023-03-28] MEDS: Omeprazole 40 MG CAPSULE.DR PO (07:56)
[2023-03-28] MEDS: Cyanocobalamin (Vitamin B-12) 500 MCG TABLET PO (07:56)
[2023-03-28] MEDS: Ascorbic Acid 500 MG TABLET PO (07:56)
[2023-03-28] MEDS: lisinopriL 5 MG TABLET PO (07:56)
[2023-03-28] MEDS: Donepezil HCl 10 MG TABLET PO (07:56)
[2023-03-28] MEDS: Sodium Chloride Tab 1 GM TABLET 2 GM PO (07:56)
[2023-03-28] MEDS: Insulin Lispro 100 UNIT/ML 3 ML VIAL SUBCUT ×2 (07:57→12:03)
[2023-03-28 11:23] VITALS: BP 148/88; PULSE 78; RESP 18; TEMP 36.8; O2SAT 94
--- NOTE | 2023-03-28 11:31 | P.DS_ITS ---
DS: Providers Provider Date of Service: 03/28/23 Date of admission: 03/25/23 22:53 Date of discharge: 03/28/23 Primary care physician: Unknown Physician Consults: 03/26/23 06:38 Consult to Nephrology Routine Consulting Provider: [facility] Reason for consultation: hyponatremia Attending physician on discharge: Basil Leigh Discharging clinician: Chary Julian DS: Diagnosis Discharge Diagnosis (1) Hyponatremia: Status: Acute DS: Summary Hospital Course Hospital Course: From H&P on day of admission This is a 77-year-old female past medical history of CAD, CKD, dementia, type 1 diabetes, GERD, HTN, HLD, hypothyroidism, POTS- chronically wheelchair-bound, recurrent UTI, comes into the hospital brought in by her for increased confusion and a syncopal episode.? Patient herself is confused at baseline therefore history is mostly obtained from her who is her primary primary care sales representative and is with her all the time..? Although she is awake alert and pleasant. states that on Saturday he noticed patient started becoming more confused, and acting funny, he called [facility] which is her usual primary care, he took her for a visit, they found her to have an elevated BP, they started her on a new medication and told her to follow-up.? On Saturday he noticed that her confusion was worsening, she was sitting in a wheelchair when all of a sudden she had about a 5 minute syncopal episode where she was not answering him.? She did not lose bowel or bladder control, did not have any jerking movements, when she returned to consciousness she was confused.? Patient herself does not remember the incident. Has been states that she has had multiple recurrent UTIs in the past year, he was concerned that she had a UTI therefore decided to bring her to the hospital. No other complaints including no fever chills, patient has not had any chest pain, shortness of breath, no abdominal pain nausea or vomiting, no chest pain, she is incontinent of urine, has no diarrhea constipation, and no lower extremity edema On arrival to the ED patient hemodynamically stable no significant abnormal vit als except slightly elevated BP Labs are significant for WBC count of 5.0, sodium of 129, with a recent sodium 131 in November, UA positive for leukocyte Estrace, WBC, Patient started on antibiotics and will be admitted to telemetry Toxic metabolic encephalopathy. likely related to UTI and hyponatremia in the setting of underlying dementia . seems to have returned to baseline hyponatremia. acute on chronic. sodium 129 on admission. was seen by nephrology and was continued on home sodium chloride tablets. sodium improved to 135 on day of discharge. recommend not to exceed more then 2L fluid intake daily. acute UTI has recurrent UTIs her . was treated with IV Rocephin - final urine culture 10-50k mixed joey. However given the patient's confusion resolved with treatment of UTI will complete 7 day course of antibiotics. blood cultures have remained negative. syncope possibly secondary to underlying history of POTS and also UTI, hyponatremia. no evidence of seizure activity. no adverse events noted on the monitor. Time Spent with Patient Time attestation: Total time managing care of this patient today ____ minutes. Discharge coordination time: Greater than 30 minutes Quality: Safe Use of Opioids Does Pt have an Active Cancer Diagnosis on the Problem List?: No Quality: Stroke Does the patient have a stroke diagnosis?: No Physical Exam Vital Signs: Vital Signs: Last Vital Signs Temp 98.2 F 03/28/23 11:23 Pulse 78 03/28/23 11:23 Resp 18 03/28/23 11:23 BP 148/88 H 03/28/23 11:23 Pulse Ox 94 03/28/23 11:23 O2 Del Method Room Air 03/28/23 11:23 BMI result Body Mass Index 19.8 Const: General: cooperative, comfortable, no acute distress, alert and awake Nutritional Appearance: average body habitus Orientation/consciousness: oriented to person and oriented to place Resp: Effort & Inspection: normal respiratory effort and able to speak in complete sentences Auscultation: clear to auscultation bilaterally Cardio: Rate: regular rate Heart sounds: S1 normal heart sound present and S2 normal heart sound present GI: Inspection: No distended Palpation (GI): Soft to palpation and nontender Neuro: General: oriented to person, oriented to place and CN's II-XI intact bilaterally Extrem: General: Yes no pedal edema DS: Data Data Completed and Pending Completed studies during hospitalization [Text1]: Procedures Insertion of Endotracheal Airway into Trachea, Via Natural or Artificial Opening Endoscopic (10/14/21) Introduction of Vasopressor into Peripheral Vein, Percutaneous Approach (10/14/21) Respiratory Ventilation, Less than 24 Consecutive Hours (10/14/21) Labs on day of discharge: Laboratory Results - last 24 hr 03/27/23 03/27/23 03/27/23 11:49 15:36 20:43 Sodium Potassium Chloride Carbon Dioxide Anion Gap BUN Creatinine Estim Creat Clear Calc Estimated GFR POC Glucose 220 H 177 H 277 H Random Glucose Calcium TSH Random Cortisol 03/28/23 03/28/23 03/28/23 06:09 06:09 06:09 Sodium 135 Potassium 3.7 Chloride 102 Carbon Dioxide 24 Anion Gap 13 BUN 18 H Creatinine 0.74 Estim Creat Clear Calc 58.3 Estimated GFR > 60 POC Glucose Random Glucose 167 H Calcium 9.0 TSH 2.98 Random Cortisol 10.1 03/28/23 07:33 Sodium Potassium Chloride Carbon Dioxide Anion Gap BUN Creatinine Estim Creat Clear Calc Estimated GFR POC Glucose 163 H Random Glucose Calcium TSH Random Cortisol Preliminary micro results at discharge 03/25/23 22:09 Blood Culture - Preliminary Blood - Venous No growth after 48 hours. 03/25/23 22:10 Blood Culture - Preliminary Blood - Venous No growth after 48 hours. Discharge Plan Discharge Anticipated Discharge Date/Time: 03/28/23 11:40 Patient Disposition: Home, Self-Care Discharge Diagnosis: UTI hyponatremia syncope Referrals: Thai Zapata MD [Physician] - 1 Week Physician,Terrie Mcnally [Physician] - 1 Week Discharge Medications: New cefuroxime axetil 250 mg tablet 250 mg PO BID 5 Days Qty: 10 0RF Continued sodium chloride 1 gram tablet 2 tab PO BID insulin lispro [Humalog U-100 Insulin] 100 unit/mL Solution 1 sliding scale dose SUBCUT TIDAC Protocol: Insulin Correction Scale Less than or equal to 110 ---- Give (units): 0 111 to 150 Give (units): 0 151 to 200 Give (units): 0 201 to 250 Give (units): 1 251 to 300 Give (units): 2 301 to 350 Give (units): 3 Greater than 350 Give (units): 4 Call MD if Blood Glucose > : 350 omeprazole magnesium 10 mg susp,delayed release for recon 40 mg PO BID donepezil 10 mg Tablet 10 mg PO DAILY simvastatin 20 mg Tablet 20 mg PO BEDTIME Humalog U-100 Insulin 100 unit/mL Cartridge 5 unit SUBCUT DAILY Humalog U-100 Insulin 100 unit/mL Cartridge 3 - 4 unit SUBCUT DAILY@1200 Rx Instructions: if BS < 150 give 3 unit if BS > 150 give 4 units plus the sliding scale Humalog U-100 Insulin 100 unit/mL Cartridge 1 - 2 unit subcut DAILY@1630 Rx Instructions: if BS < 150 give 1 unit if BS > 150 give 2 units plus the sliding scale cyanocobalamin (vitamin B-12) 500 mcg Tablet 500 mcg PO DAILY cholecalciferol (vitamin D3) [Vitamin D3] 125 mcg (5,000 unit) Tablet 125 mcg PO DAILY@1700 Culturelle 10 billion cell Capsule 1 cap PO BID ascorbic acid (vitamin C) 500 mg Tablet 500 mg PO BID estradiol [Estrace] 0.01 % (0.1 mg/gram) Cream 0.5 appful VAGINAL 3XW Rx Instructions: for 14 days cranberry fruit 450 mg Tablet 450 mg PO DAILY Rx Instructions: administer with a meal insulin glargine [Lantus Solostar U-100 Insulin] 100 unit/mL (3 mL) insulin pen 7 unit subcut BEDTIME lisinopril 5 mg Tablet 5 mg PO DAILY Held methenamine hippurate 1 gram Tablet 1 g PO BID@0900,1700 Hold Instructions: hold until after complete course of antibiotics and then resume Discharge Orders: Discharge Order (Routine); Ordered 03/28/23 Ordered By: Chary Julian Diet: Advance to usual diet Activity on Discharge: As tolerated Stand Alone Forms: Patient Portal Discharge page Care Plan Goals: see below Health Concerns: low sodium levels confusion UTI Plan of Treatment: complete course of antibiotics - call to schedule follow up with urology due to recurrent UTIs for low sodium - continue to take sodium chloride tablets, recommend not to exceed 2L of fluid intake per day call to schedule follow up appointment with PCP Assessment: see discharge summary Patient Instructions: Urinary Tract Infection in Women (DC), Hyponatremia (DC), Syncope (DC) Discharge Date/Time: 03/28/23 13:05
[2023-03-28 11:37] LABS: Glucose, Whole Blood 229 mg/dL (60-115)
--- NOTE | 2023-03-28 12:18 | MHC.CM.PN ---
D/C Summary has been faxed to [facility]NOL[facility] @ [phone].
--- NOTE | 2023-03-28 12:36 | MHC.CM.PN ---
Pt has been medically cleared for D/C home with her husbands support and resumption of [employer] program. Pts will transport her home.
== END 2023-03-28 13:05 | disposition home or self-care (01) ==
LOC: HO.ED 21:40 → HO.EDOVER 23:04 → HO.IMC 23:39
PROVIDERS: Nurse Practitioner Acute Care; Admitting Provider Internal Medicine; Emergency Provider Student in an Organized Health Care Education/Training Program; PCP Internal Medicine Rheumatology; Visit Provider Physician Assistant Medical
DX: E87.1 Hypo-osmolality and hyponatremia (principal); N39.0 Urinary tract infection, site not specified; R55 Syncope and collapse; I25.10 Atherosclerotic heart disease of native coronary artery without angina pectoris; F03.90 Unspecified dementia, unspecified severity, without behavioral disturbance, psychotic disturbance, mood disturbance, and anxiety; I12.9 Hypertensive chronic kidney disease with stage 1 through stage 4 chronic kidney disease, or unspecified chronic kidney disease; E10.22 Type 1 diabetes mellitus with diabetic chronic kidney disease; N18.9 Chronic kidney disease, unspecified; Z79.4 Long term (current) use of insulin; Z79.899 Other long term (current) drug therapy; Z99.3 Dependence on wheelchair
CPT/HCPCS: 36415; 70450; 71046; 80048; 80053; 80076; 81001; 82533; 82947; 83605; 83690; 83930; 83935; 84295; 84443; 85025; 87040; 87086; 87635; 93005; 96361; 96365; 96366; 96372; 96375; 97161; 99222; 99285; J0696; J1650

== ENCOUNTER → 2023-03-25 18:19 | Outpatient (BNV) | payer OTHER, SELFPAY | PROVIDERS: Admitting Provider Internal Medicine; Emergency Provider Student in an Organized Health Care Education/Training Program; Visit Provider Internal Medicine Cardiovascular Disease | DX: R55 Syncope and collapse (principal) | CPT/HCPCS: 93010 ==

== ENCOUNTER → 2023-03-25 22:53 | Outpatient (BNV) | payer OTHER, SELFPAY | PROVIDERS: Admitting Provider Internal Medicine; Emergency Provider Student in an Organized Health Care Education/Training Program; Visit Provider Internal Medicine | DX: E87.1 Hypo-osmolality and hyponatremia (principal); R55 Syncope and collapse; N39.0 Urinary tract infection, site not specified | CPT/HCPCS: 99232; 99236; 99239 ==

== ENCOUNTER 2023-04-12 04:57 | Inpatient (IN) | payer OTHER, SELFPAY ==
[2023-04-12] VITALS (7 sets, daily range): BP systolic 126–198; BP diastolic 48–90; PULSE 78–91; RESP 10–20; TEMP 35.1–37.1; O2SAT 94–97; BMI 20.7
--- NOTE | ~2023-04-12 | CT_ITS ---
EXAMINATION: CT HEAD WITHOUT CONTRAST CLINICAL INFORMATION: Seizure COMPARISON: 03/25/2023 TECHNIQUE: Contiguous axial imaging was performed from the skull base to vertex without intravenous contrast. This CT examination was performed using dose optimization techniques as appropriate, variously including the following: * Automated exposure control * Adjustment of mA and/or kV according to patient size (this includes techniques or standardized protocols for targeted exams where dose is matched to indication/reason for exam; i.e. extremities or head) Use of iterative reconstruction technique DLP: 744 mGy-cm. FINDINGS: There is no evidence of acute intracranial hemorrhage or territorial infarction. No abnormal mass effect or midline shift is seen. Gonsalez to white matter differentiation is well preserved. No extra-axial fluid collections are identified. No hydrocephalus. Proportional prominence of the ventricles and sulcal spaces is consistent with moderate volume loss. Patchy periventricular and deep white matter hypoattenuation is consistent with moderate small vessel ischemic changes. The osseous structures and soft tissues are normal. The mastoid air cells and visualized portions of the paranasal sinuses are well aerated. CT/CT head/brain wo IV con IMPRESSION: No acute intracranial pathology. Chronic volume loss with small vessel ischemic change.
[2023-04-12 05:17] LABS: MANUAL DIFF FLAG NO
[2023-04-12 05:18] LABS: Basophils Percent Auto 0.6 % (0-2); Eosinophils Absolute Auto 0.2 X10*3/uL (0.0-0.4); Eosinophils Percent Auto 3.6 % (0-4); Hematocrit 36.2 % (37.0-47.0); Hemoglobin 11.7 g/dl (12.0-16.0); Imm Gran Abs Auto 0.03 X10*3/uL (0.00-0.03); Imm Gran Pct Auto 0.4 % (0.0-0.4); Lymphocytes Absolute Auto 1.6 X10*3/uL (1.2-4.9); Lymphocytes Percent Auto 23.6 % (20-40); Mean Corpuscular HGB Conc 32.3 g/dl (31.0-35.0); Mean Corpuscular Hemoglobin 30.2 pg (27.0-33.0); Mean Corpuscular Volume 93.5 fL (80.0-98.0); Mean Platelet Volume 9.9 fL (9.4-12.3); Monocytes Absolute Auto 0.8 X10*3/uL (0.1-1.2); Monocytes Percent Auto 12.4 % (2-11); Neutrophils Percent Auto 59.4 % (45-73); Platelet Count 295 X10*3/uL (160-400); Red Blood Count 3.87 X10*6/uL (4.20-5.50); Red Cell Distribution Width 13.2 % (11.0-16.0); White Blood Count 6.7 X10*3/uL (4.8-10.8)
--- OUTSIDE RECORDS SUMMARY | 2023-04-12 05:47 | XMS_ITS ---
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 Problem Esophageal obstruction K22.2 Active 04607359 Problem Esophageal dysphagia R13.19 Active 408 63382 Problem Dysphagia R13.10 Active 70281691 Problem Esophagitis, erosive K22.10 Active 308 68483 Problem Acute diarrhea R19.7 Active 231445576 Problem Erosive esophagitis K22.10 Active Problem Esophageal stricture K22.2 Active Problem Esophageal dysmotility K22.4 Active 260364922 Problem Gastroesophageal reflux K21.9 Active 445039960 ALLERGIES Substance Reaction Event Type Date Status Levaquin Unknown Drug Allergy Dec, Active miterine Unknown Non Drug Allergy Dec, Active Sulfa Antibiotics Unknown Drug Allergy Dec, Act demli ENCOUNTERS Encounter Location Date Diagnosis [facility] [address] [place] [phone] Dec, [facility] [address] [place] [phone] Dec, [facility] [address] [place] [phone] 06 Apr, 2023 Esophageal dysmotility K22.4 ; Erosive esophagitis K22.10 and Esophageal stricture K22.2 [facility] [address] [place] [address] 13 Oct, 2022 [facility] [address] [place] [address] 30 Aug, 2022 [facility] [address] [place] [address] 28 Aug, 2022 [facility] [address] [place] [address] 15 Jul, 2022 [facility] [address] [place] [address] 11 Jul, 2022 Esophageal dysmotility K22.4 ; Erosive esophagitis K22.10 and Esophageal stricture K22.2 [facility] [address] [place] [address] Jul, [facility] [address] [place] [address] Jun, [facility] [address] [place] [address] Jun, [facility] [address] [place] [address] Apr, [facility] [address] [place] [address] Apr, [facility] [address] [place] [address] Mar, [facility] [address] [place] [address] Mar, [facility] [address] [place] [address] Mar, [facility] [address] [place] [address] Mar, Esophageal dysmotility K22.4 ; Erosive esophagitis K22.10 and Esophageal stricture K22.2 [facility] [address] [place] [address] Mar, [facility] [address] [place] [address] Feb, [facility] [address] [place] [address] [address] 16 Feb, 2022 Acute diarrhea R19.7 [facility] [address] [place], [place] [address] 08 Feb, 2022 Dysphagia R13.10 [facility] Outpatient [address] [place], [place] [phone] 07 Feb, 2022 Dysphagia R13.10 ; Gastroesophageal reflux K21.9 and Hiatal hernia K44.9 [facility] [address] [place] [address] 03 Feb, 2022 [facility] [address] [place] [phone] January, [facility] [address] [place] [id number] January, [facility] [address] [place] [address] January, Erosive esophagitis K22.10 and Esophageal dysphagia R13.19 [facility] [address] [place] [id number] 17 Jan, 2022 [facility] [address] [place] [phone] Dec, [facility] Outpatient [address] [place] [id number] Nov, [facility] ER [address] [place] [id number] Apr, [facility] Outpatient [address] [place] [id number] Nov, [facility] Outpatient [address] [place] [id number] Oct, [facility] ER [address] [place] [id number] Oct, IMMUNIZATIONS Vaccine Route Administration Date Status [...] REASON FOR VISIT Patient presents today for erosive esophagitis, low blood sugar , Patient [...] Subscriber Name Subscriber Date of Group No [employer] 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
[2023-04-12 05:55] LABS: Alanine Aminotransferase 11 U/L (0-31); Alkaline Phosphatase 154 U/L (39-117); Anion Gap 18 (12-20); Aspartate Amino Transferase 16 U/L (5-31); Bilirubin Direct 0.2 mg/dL (0.0-0.5); Bilirubin Total 0.5 mg/dL (0.0-1.0); Blood Urea Nitrogen 23 mg/dL (9-16); Calcium 9.2 mg/dL (8.4-10.2); Carbon Dioxide 21 mmol/L (22-29); Chloride 96 mmol/L (96-108); Creatinine Clr Calc Pharmacy 48.8; Estimated Glomerular Filt Rate > 60; Glucose Random 349 mg/dL (60-115); Lipase 11 U/L (8-78); Potassium 3.9 mmol/L (3.3-5.1); Sodium 131 mmol/L (135-145); Total Protein 6.6 g/dL (6.5-8.0)
[2023-04-12 06:01] LABS: Appearance Urine Clear; Color Urine Yellow; Glucose Urine UA >=1000 mg/dL (Negative); Leukocyte Esterase Urine Negative (Negative); Nitrite Urine Negative (Negative); PH 6.5 (5.0-9.0); UMIC TRIGGER UACC YES; Urine Blood Trace (Negative); Urine Ketones Trace mg/dL (Negative); Urine Protein 300 (3+) mg/dL (Neg-Trace)
[2023-04-12 06:06] LABS: Bacteria Urine None Seen (None Seen); Hyaline Casts Urine 0-2 /LPF (0-2); RBC Urine 0-2 /HPF (0-2); Squamous Epithelial Cell Urine 0-2 /HPF (0-2); WBC Urine 0-5 /HPF (0-5)
--- NOTE | 2023-04-12 07:02 | ED.AMS ---
HPI - Altered Mental Status General Chief Complaint: Seizure Stated Complaint: seizure activity Time Seen by Provider: 04/12/23 06:46 Source: patient and family (, Angel) Mode of arrival: EMS Limitations: altered mental status (Patient is confused) History of Present Illness HPI narrative: 77-year-old female with a history of CAD, CKD, dementia, type 1 diabetes, GERD, HTN, HLD, hypothyroidism, POTS- chronically wheelchair-bound, recurrent UTI, brought to emergency department by ambulance for evaluation of altered level of consciousness and possible seizure. The states that at 00:12 hours the patient became confused. She was taking her clothes off in urinated on the floor. She did this multiple times and continued to be confused. states that the patient believe that she was on at [facility] which was her home when she was a child and not where she actually lived. The was eventually able to get the patient back in bed. While the patient was lying in bed her eyes rolled into the back her head, her head turned to 1 side and she was rhythmically moving one arm. The states that it was a very forceful movement in even caused her to ripped her shirt. The patient was not awake during this time and was not responding to questions that the was asking. The believes the episode lasted approximately 12 minutes and afterwards the patient was very confused. The patient's point of care glucose at the time was 272. Paramedics reported that the patient has left arm was constricted and held to her chest when they arrived on the scene. Since this event, the states the patient has been confused and normally she is much more oriented. states that the patient was recently evaluated by a neurologist at [facility] and had a negative EEG. Patient was seen in the emergency department on 03/25/2023 for a syncopal episode. That time the patient's sodium was 129. She was diagnosed with a UTI and admitted. Her syncope was attributed to toxic metabolic encephalopathy likely caused by urinary tract infection hyponatremia in the setting of dementia. She was discharged on cefuroxime 250 mg b.i.d. x5 days. Related Data Home Medications Medication Instructions Recorded Confirmed Lactobacillus rhamnosus GG 10 1 cap PO BID 10/14/21 03/25/23 billion cell capsule (Culturelle) cholecalciferol (vitamin D3) 125 125 mcg PO DAILY@1700 10/14/21 03/25/23 mcg (5,000 unit) tablet (Vitamin D3) cyanocobalamin (vitamin B-12) 500 500 mcg PO DAILY 10/14/21 03/25/23 mcg tablet donepezil 10 mg tablet 10 mg PO DAILY 10/14/21 03/25/23 insulin lispro 100 unit/mL 1 - 2 unit subcut DAILY@1630 10/14/21 03/25/23 subcutaneous cartridge (Humalog U-100 Insulin) insulin lispro 100 unit/mL 3 - 4 unit subcut DAILY@1200 10/14/21 03/25/23 subcutaneous cartridge (Humalog U-100 Insulin) insulin lispro 100 unit/mL 5 unit subcut DAILY 10/14/21 03/25/23 subcutaneous cartridge (Humalog U-100 Insulin) methenamine hippurate 1 gram tablet 1 g PO BID@0900,1700 10/14/21 03/25/23 simvastatin 20 mg tablet 20 mg PO BEDTIME 10/14/21 03/25/23 sodium chloride 1 gram tablet 2 tab PO BID 01/20/22 03/25/23 insulin lispro 100 unit/mL 1 sliding scale dose subcut TIDAC 03/12/22 03/25/23 subcutaneous solution (Humalog U-100 Insulin) omeprazole magnesium 10 mg oral 40 mg PO BID 03/12/22 03/25/23 suspension,delayed release ascorbic acid (vitamin C) 500 mg 500 mg PO BID 03/25/23 03/25/23 tablet cranberry fruit 450 mg tablet 450 mg PO DAILY 03/25/23 03/25/23 estradiol 0.01% (0.1 mg/gram) 0.5 appful vaginal 3XW 03/25/23 03/25/23 vaginal cream (Estrace) insulin glargine 100 unit/mL (3 7 unit subcut BEDTIME 03/25/23 03/25/23 mL) subcutaneous pen (Lantus Solostar U-100 Insulin) lisinopril 5 mg tablet 5 mg PO DAILY 03/25/23 03/25/23 Previous Rx's Medication Instructions Recorded cefuroxime axetil 250 mg tablet 250 mg PO BID 5 days #10 tabs 03/28/23 Allergies Allergy/AdvReac Type Severity Reaction Status Date / Time Sulfa (Sulfonamide Allergy Severe RASH/HIVES, Verified 02/14/22 14:30 Antibiotics) hives [SULFA (SULFONAMIDE ANTIBIOTICS)] insulin aspart Allergy Unknown HIVES Verified 02/14/22 14:30 [From NOVOLOG U-100 INSULIN ASPART] levofloxacin [From LEVAQUIN] AdvReac Intermediate BLOOD Verified 02/14/22 14:30 SUGAR DROPS milk [MILK] AdvReac Mild NAUSEA Verified 02/14/22 14:30 Review of Systems Review of Systems: Yes all other systems are reviewed and are negative [facility] Past Medical History [facility] Narrative: Social history: Patient lives with her he states that he is able to care for her at home. She denies tobacco, alcohol and drug use. Medical History CAD (coronary artery disease) CKD (chronic kidney disease), stage III COVID-19 Dementia DM type 1 (diabetes mellitus, type 1) Esophageal dilatation GERD (gastroesophageal reflux disease) Glaucoma HTN (hypertension) Hypercholesterolemia Hyperkalemia Hypothyroid Neuropathy Orthostatic hypotension POTS (postural orthostatic tachycardia syndrome) PPD positive QT prolongation Retinopathy Vitamin B12 deficiency Social History Social History Household Members: Spouse Housing: House Do you presently have visiting nurse or other home services: No Unable to assess alcohol history related to: Unable to respond Alcohol intake: never Patient Tobacco Use Status: Never used Tobacco e-Cigarette/Vaping Use: Never Used Second Hand Smoke Exposure: No Advance Directives: Yes Advance Directives on File: Yes Advance Directives Date on File: 03/26/23 service: No Current occupational status: retired Physical Exam ED Vital Signs: Vital Signs - 24 hr 04/12/23 05:26 04/12/23 06:13 04/12/23 08:33 Temperature 95.1 F L 98.3 F Pulse Rate 84 90 Respiratory Rate 16 10 L Blood Pressure 198/90 H 156/63 H Pulse Oximetry 96 95 Oxygen Delivery Method Room Air Room Air BMI result Body Mass Index 20.7 Const Other: Patient is awake and alert, she does defer to her to answer all questions. Patient was oriented to person, she knows that she is in a hospital, she did not know the month or year, she does not appear to be in distress HENMT Head: Yes normal to inspection, Yes normocephalic and Yes atraumatic Ears: external ears normal General nose exam: Normal external nose present Face and sinus: Yes normal facial exam Mouth: Normal oral and palatal mucosa present Throat: Yes posterior oropharynx normal Eyes General: appearance normal, both eyes and all related structures Pupils: Equal, round and reactive pupils present Neck Neck: Yes normal visual inspection, Yes no lymphadenopathy, Yes trachea midline and Yes supple Chest Chest palpation & inspection: normal inspection of the chest and normal palpation of entire chest wall Resp Effort & Inspection: normal respiratory effort and able to speak in complete sentences Auscultation: clear to auscultation bilaterally Cardio Rate: regular rate Rhythm: regular rhythm Heart sounds: S1 normal heart sound present, S2 normal heart sound present and no murmurs GI Inspection: Yes normal to inspection Palpation (GI): Soft to palpation, nontender and no guarding Auscultation: normal bowel sounds General: Yes no CVA tenderness Back/Spine/Pelvis Back: no CVA tenderness Skin General skin exam: no rashes or lesions noted Neuro Other: Oriented to person and place only Cranial nerves: Yes CN's II-XII intact bilaterally and Yes Equal, round and reactive pupils present Speech: Other speech findings present (Neuro) (Normal speech) Motor exam (neuro): 5/5 motor strength present throughout Extrem General: Yes normal to inspection Psych Appearance: grossly normal Speech and movement: Normal speech and movement present Affect: normal affect Medical Decision Making Medical Decision Making MDM Narrative: 77-year-old female with a history of CAD, CKD, dementia, type 1 diabetes, GERD, HTN, HLD, hypothyroidism, POTS- chronically wheelchair-bound, recurrent UTI, brought to emergency department by ambulance for evaluation of altered level of consciousness and possible seizure. The has underlying dementia and was confused above her baseline, she then developed uncontrollable rhythmic movement of her upper extremity and head with altered mental status which lasted approximately 12 minutes. The 's description of the event is consistent with a focal seizure that did not become generalized. The following evaluation was ordered: CBC, CMP, urinalysis, CT scan of the brain, EKG. 0740: My interpretation of patient's laboratory evaluation is as follows: Sodium low 131, bicarb low 21, BUN elevated 23, glucose elevated 349. Urinalysis positive for protein and glucose, negative for nitrates and leukocyte esterase. Microscopic 0 RBCs, 0 WBCs, [address] scan of the brain revealed no acute process The patient still is confused however she does have underlying dementia. Based on the 's description concerned the patient may have had a TIA, stroke or seizure. I will discuss admission with the covering hospitalist. 0826: I did discuss the patient's presentation with the covering hospitalist, Dr. Valverde and he will admit the patient for further evaluation. Differential Diagnosis Differential Diagnoses: The differential diagnosis associated with the presentation includes Differential diagnosis includes but is not limited to: Stroke, TIA, hyponatremia, arrhythmia, focal seizure, urinary tract infection, orthostatic hypotension Admission/Observation Consideration of admission/observation: Escalation of care including admission/observation considered Consult Healthcare Provider Management of the patient was discussed with: Hospitalist Lab Data [facility] Lab Attestation statement: I reviewed the patient's lab results. Please see [facility] for my interpretation of labs 04/12/23 05:14 04/12/23 05:37 Labs: Lab Results 04/12/23 04/12/23 04/12/23 Range/Units 05:14 05:37 05:55 WBC 6.7 (4.8-10.8) X10*3/uL RBC 3.87 L (4.20-5.50) X10*6/uL Hgb 11.7 L (12.0-16.0) g/dl Hct 36.2 L (37.0-47.0) % MCV 93.5 (80.0-98.0) fL MCH 30.2 (27.0-33.0) pg MCHC 32.3 (31.0-35.0) g/dl RDW 13.2 (11.0-16.0) % Plt Count 295 (160-400) X10*3/uL MPV 9.9 (9.4-12.3) fL Immature Gran % (Auto) 0.4 (0.0-0.4) % Neut % (Auto) 59.4 (45-73) % Lymph % (Auto) 23.6 (20-40) % [place] % (Auto) 12.4 H (2-11) % Eos % (Auto) 3.6 (0-4) % Baso % (Auto) 0.6 (0-2) % Lymph # (Auto) 1.6 (1.2-4.9) X10*3/uL [place] # (Auto) 0.8 (0.1-1.2) X10*3/uL Eos # (Auto) 0.2 (0.0-0.4) X10*3/uL Baso # (Auto) 0.0 (0.0-0.2) X10*3/uL Abs Immat Gran (auto) 0.03 (0.00-0.03) X10*3/uL Absolute Neuts (auto) 4.0 (2.0-8.3) x10*3/uL Absolute Nucleated RBC 0.000 (0.0-0.012) X10*3/uL Nucleated RBC % (auto) 0.0 (0.0-0.2) /100WBC Sodium 131 L (135-145) mmol/L Potassium 3.9 (3.3-5.1) mmol/L Chloride 96 (96-108) mmol/L Carbon Dioxide 21 L (22-29) mmol/L Anion Gap 18 (12-20) BUN 23 H (9-16) mg/dL Creatinine 0.90 (0.5-1.4) mg/dL Estim Creat Clear Calc 48.8 Estimated GFR > 60 Random Glucose 349 H (60-115) mg/dL Calcium 9.2 (8.4-10.2) mg/dL Total Bilirubin 0.5 (0.0-1.0) mg/dL Direct Bilirubin 0.2 (0.0-0.5) mg/dL AST 16 (5-31) U/L ALT 11 (0-31) U/L Alkaline Phosphatase 154 H (39-117) U/L Total Protein 6.6 (6.5-8.0) g/dL Albumin 4.0 (3.5-5.0) g/dL Lipase 11 (8-78) U/L Urine Color Yellow Urine Appearance Clear Urine pH 6.5 (5.0-9.0) Ur Specific [place] 1.010 (1.005-1.025) Urine Protein 300 (3+) H (Neg-Trace) mg/dL Urine Glucose (UA) >=1000 H (Negative) mg/dL Urine Ketones Trace (Negative) mg/dL Urine Blood Trace H (Negative) Urine Nitrite Negative (Negative) Ur Leukocyte Esterase Negative (Negative) Urine RBC 0-2 (0-2) /HPF Urine WBC 0-5 (0-5) /HPF Ur Squamous Epith Cells 0-2 (0-2) /HPF Urine Bacteria None Seen (None Seen) Hyaline Casts 0-2 (0-2) /LPF Independent Interpretation I performed an independent interpretation of an: EKG and CT Scan Interpretation: My independent interpretation patient's CT scan of the brain without IV contrast as follows: No acute fracture, bleed, volume loss changes My independent interpretation patient's 12 EKG done at 0830 is as follows: Normal sinus rhythm with a rate of 88, normal OR interval, QRS duration and QTC interval of 471 milliseconds, no ST segment elevation, no ST segment depression, inverted T-wave in V3 otherwise no other T-wave abnormalities, no PACs, no PVCs. Radiology Impression Discussion of test interpretation with radiology: I have reviewed the radiologist's reading. Radiologist Impression: CT head/brain wo IV con IMPRESSION: No acute intracranial pathology. Chronic volume loss with small vessel ischemic change. Dictated By:Jez Perez MD Independent Historian Clinical information obtained from an independent historian. History obtained from or confirmed by: Spouse External Record Review External record reviewed: Inpatient record Chronic Conditions Patient?s care impacted by: Diabetes and Other (Orthostatic hypotension) Discharge Plan Discharge Clinical Impression: Acute alteration in mental status Prescriptions: No Action sodium chloride 1 gram tablet 2 tab PO BID insulin lispro [Humalog U-100 Insulin] 100 unit/mL Solution 1 sliding scale dose SUBCUT TIDAC Protocol: Insulin Correction Scale Less than or equal to 110 ---- Give (units): 0 111 to 150 Give (units): 0 151 to 200 Give (units): 0 201 to 250 Give (units): 1 251 to 300 Give (units): 2 301 to 350 Give (units): 3 Greater than 350 Give (units): 4 Call MD if Blood Glucose > : 350 omeprazole magnesium 10 mg susp,delayed release for recon 40 mg PO BID donepezil 10 mg Tablet 10 mg PO DAILY simvastatin 20 mg Tablet 20 mg PO BEDTIME Humalog U-100 Insulin 100 unit/mL Cartridge 5 unit SUBCUT DAILY Humalog U-100 Insulin 100 unit/mL Cartridge 3 - 4 unit SUBCUT DAILY@1200 Rx Instructions: if BS < 150 give 3 unit if BS > 150 give 4 units plus the sliding scale Humalog U-100 Insulin 100 unit/mL Cartridge 1 - 2 unit subcut DAILY@1630 Rx Instructions: if BS < 150 give 1 unit if BS > 150 give 2 units plus the sliding scale methenamine hippurate 1 gram Tablet 1 g PO BID@0900,1700 Hold Instructions: hold until after complete course of antibiotics and then resume cyanocobalamin (vitamin B-12) 500 mcg Tablet 500 mcg PO DAILY cholecalciferol (vitamin D3) [Vitamin D3] 125 mcg (5,000 unit) Tablet 125 mcg PO DAILY@1700 Culturelle 10 billion cell Capsule 1 cap PO BID ascorbic acid (vitamin C) 500 mg Tablet 500 mg PO BID estradiol [Estrace] 0.01 % (0.1 mg/gram) Cream 0.5 appful VAGINAL 3XW Rx Instructions: for 14 days cranberry fruit 450 mg Tablet 450 mg PO DAILY Rx Instructions: administer with a meal insulin glargine [Lantus Solostar U-100 Insulin] 100 unit/mL (3 mL) insulin pen 7 unit subcut BEDTIME lisinopril 5 mg Tablet 5 mg PO DAILY cefuroxime axetil 250 mg tablet 250 mg PO BID 5 Days Qty: 10 0RF
--- NOTE | 2023-04-12 07:40 | ECG_ITS ---
Test Reason : CHEST PAIN Blood Pressure : / mmHG Vent. Rate : 088 BPM Atrial Rate : 088 BPM P-R Int : 146 ms QRS Dur : 088 ms QT Int : 390 ms P-R-T Axes : 071 087 069 degrees QTc Int : 471 ms Normal sinus rhythm Possible Left atrial enlargement Borderline ECG When compared with ECG of 25-MAR-2023 19:40, No significant change was found Referred By: Leonel Remy Electronically Signed By:CHELLY VEGAS MD
[2023-04-12 10:04] LABS: Glucose, Whole Blood 301 mg/dL (60-115)
[2023-04-12] MEDS: Enoxaparin Sodium 40 MG/0.4 ML SYRINGE SUBCUT (10:40)
--- NOTE | 2023-04-12 10:44 | PHA.MEDREC ---
Pharmacy Consult ? Medication Reconciliation Pharmacy has completed the medication reconciliation Spoke with patient's . Patient clarified all insulins dose changes. Insulin: Lantus: 6 units every night at 2100 Humalog - Breakfast: 4 units + sliding scale - Lunch: if BS < 200 give 3 unit and if BS >/= 200 give 4 units plus the sliding scale - Dinner: If BS <150 give 0 units and if BS >/= 150 give 2 units plus the sliding scale
[2023-04-12 13:31] LABS: Glucose, Whole Blood 502 mg/dL (60-115)
[2023-04-12] MEDS: Insulin Lispro 100 UNIT/ML 3 ML VIAL SUBCUT ×2 (13:39→22:33)
[2023-04-12] MEDS: lisinopriL 5 MG TABLET PO (13:40)
[2023-04-12] MEDS: Cyanocobalamin (Vitamin B-12) 500 MCG TABLET PO (14:01)
[2023-04-12] MEDS: Donepezil HCl 10 MG TABLET PO (14:12)
--- NOTE | 2023-04-12 14:16 | PC.NURSE ---
pt POC elevated to 502 - informed MD Valverde via [facility] of elevated POC, plan to give 10u. no new orders at this time.
[2023-04-12] MEDS: Omeprazole 40 MG CAPSULE.DR PO (17:32)
[2023-04-12] MEDS: Cholecalciferol (Vitamin D3) 25 MCG TABLET 125 MCG PO (17:32)
[2023-04-12] MEDS: 0.9 % Sodium Chloride Flush 3 ML SYRINGE IVFLUSH ×2 (17:33→22:34)
--- NOTE | 2023-04-12 17:51 | PM.IMHP ---
History of Present Illness Date of Service: 04/12/23 Chief Complaint: syncopal episode 77-year-old female with a history of CAD, CKD, dementia, type 1 diabetes, GERD, HTN, HLD, hypothyroidism, POTS- chronically wheelchair-bound, recurrent UTI, brought to emergency department by ambulance for evaluation of altered level of consciousness and possible seizure.? The states that at 00:12 hours the patient became confused.? She was taking her clothes off in urinated on the floor.? She did this multiple times and continued to be confused.? states that the patient believe that she was on at [facility] which was her home when she was a child and not where she actually lived.? The was eventually able to get the patient back in bed.? While the patient was lying in bed her eyes rolled into the back her head, her head turned to 1 side and she was rhythmically moving one arm. The states that it was a very forceful movement in even caused her to ripped her shirt.? The patient was not awake during this time and was not responding to questions that the was asking.? The believes the episode lasted approximately 12 minutes and afterwards the patient was very confused.? The patient's point of care glucose at the time was 272.? Paramedics reported that the patient has left arm was constricted and held to her chest when they arrived on the scene.? Since this event, the states the patient has been confused and normally she is much more oriented. Review of Systems Review of Systems: denies chest pain Denies shortness of breath Denies nausea vomiting diarrhea Denies fever chills [facility] Medical History (Updated 04/12/23 @ 17:55 by Dhaval Valverde DO) CAD (coronary artery disease) CKD (chronic kidney disease), stage III COVID-19 Dementia DM type 1 (diabetes mellitus, type 1) Esophageal dilatation GERD (gastroesophageal reflux disease) Glaucoma HTN (hypertension) Hypercholesterolemia Hyperkalemia Hypothyroid Neuropathy Orthostatic hypotension POTS (postural orthostatic tachycardia syndrome) PPD positive QT prolongation Retinopathy Vitamin B12 deficiency Social History Household Members: Spouse Housing: House Do you presently have visiting nurse or other home services: No Unable to assess alcohol history related to: Unable to respond Alcohol intake: never Patient Tobacco Use Status: Never used Tobacco Smoked in Last 30 Days: No e-Cigarette/Vaping Use: Never Used Second Hand Smoke Exposure: No Use of substances other than those prescribed or required for medical reasons: No Advance Directives: Yes Advance Directives on File: Yes Advance Directives Date on File: 03/26/23 Nutrition Risks: Difficulty swallowing, Gastrointestinal Malabsorption and On aspiration precautions service: No Current occupational status: retired Meds Allergies Allergy/AdvReac Type Severity Reaction Status Date / Time Sulfa (Sulfonamide Allergy Severe RASH/HIVES, Verified 02/14/22 14:30 Antibiotics) hives [SULFA (SULFONAMIDE ANTIBIOTICS)] insulin aspart Allergy Unknown HIVES Verified 02/14/22 14:30 [From NOVOLOG U-100 INSULIN ASPART] levofloxacin [From LEVAQUIN] AdvReac Intermediate BLOOD Verified 02/14/22 14:30 SUGAR DROPS milk [MILK] AdvReac Mild NAUSEA Verified 02/14/22 14:30 Active Medications: Current Medications Ascorbic Acid (Ascorbic Acid 500 Mg Tablet) 500 mg PO BID [facility] Atorvastatin Calcium (Atorvastatin Calcium 10 Mg Tablet) 10 mg PO BEDTIME [facility] Cyanocobalamin (Cyanocobalamin (Vitamin B-12) 500 Mcg Tablet) 500 mcg PO DAILY [facility] Last Admin: 04/12/23 14:01 Dose: 500 mcg Donepezil HCl (Donepezil Hcl 10 Mg Tablet) 10 mg PO DAILY [facility] Last Admin: 04/12/23 14:12 Dose: 10 mg Enoxaparin Sodium (Enoxaparin Sodium 40 Mg/0.4 Ml Syringe) 40 mg SUBCUT Q24H [facility] Last Admin: 04/12/23 10:40 Dose: 40 mg Insulin Glargine (Insulin Glargine,Hum.Rec.Anlog 100 Unit/Ml 10 Ml Vial) 6 unit SUBCUT BEDTIME [facility] Insulin Human Lispro (Insulin Lispro 100 Unit/Ml 3 Ml Vial) 0 unit SUBCUT TIDAC [facility]; Protocol Last Admin: 04/12/23 13:39 Dose: 10 unit Insulin Human Lispro (Insulin Lispro 100 Unit/Ml 3 Ml Vial) 0 - 2 unit SUBCUT DAILY@1630 [facility] Insulin Human Lispro (Insulin Lispro 100 Unit/Ml 3 Ml Vial) 3 - 4 unit SUBCUT DAILY@1200 [facility] Insulin Human Lispro (Insulin Lispro 100 Unit/Ml 3 Ml Vial) 4 unit SUBCUT DAILY [facility] Lisinopril (Lisinopril 5 Mg Tablet) 5 mg PO DAILY [facility]; Protocol Last Admin: 04/12/23 13:40 Dose: 5 mg Methenamine Hippurate (Methenamine Hippurate 1 Gm Tablet) 1 gm PO BID@0900,1700 [facility] Non-Formulary Medication (Estradiol [Estrace]) 0.5 appful VAGINAL MOWEFR [facility] Omeprazole (Omeprazole 40 Mg Capsule.Dr) 40 mg PO BID@0630,1630 [facility] Last Admin: 04/12/23 17:32 Dose: 40 mg Pharmacy Consult (Consult Rx Perform Med Rec) 1 each MISCELLANE ONCE PRN PRN Reason: Consult order Sodium Chloride (0.9 % Sodium Chloride Flush 3 Ml Syringe) 3 ml IVFLUSH QSHIFT [facility] Last Admin: 04/12/23 17:33 Dose: 3 ml Sodium Chloride (Sodium Chloride Tab 1 Gm Tablet) 2 gm PO BID [facility] Vitamin D (Cholecalciferol (Vitamin D3) 25 Mcg Tablet) 125 mcg PO DAILY@1700 [facility] Last Admin: 04/12/23 17:32 Dose: 125 mcg Home Medications Medication Instructions Recorded Confirmed Last Taken Type Lactobacillus rhamnosus GG 10 1 cap PO BID 10/14/21 04/12/23 04/11/23 21:00 History billion cell capsule (Culturelle) cholecalciferol (vitamin D3) 125 125 mcg PO DAILY@1700 10/14/21 04/12/23 04/11/23 17:00 History mcg (5,000 unit) tablet (Vitamin D3) cyanocobalamin (vitamin B-12) 500 500 mcg PO DAILY 10/14/21 04/12/23 04/11/23 09:00 History mcg tablet donepezil 10 mg tablet 10 mg PO DAILY 10/14/21 04/12/23 04/11/23 09:00 History insulin lispro 100 unit/mL 0 - 2 unit subcut DAILY@1630 10/14/21 04/12/23 04/11/23 16:30 History subcutaneous cartridge (Humalog U-100 Insulin) insulin lispro 100 unit/mL 3 - 4 unit subcut DAILY@1200 10/14/21 04/12/23 04/11/23 12:00 History subcutaneous cartridge (Humalog U-100 Insulin) insulin lispro 100 unit/mL 4 unit subcut DAILY 10/14/21 04/12/23 04/11/23 09:00 History subcutaneous cartridge (Humalog U-100 Insulin) methenamine hippurate 1 gram tablet 1 g PO BID@0900,1700 10/14/21 04/12/23 04/11/23 17:00 History simvastatin 20 mg tablet 20 mg PO BEDTIME 10/14/21 04/12/23 04/11/23 21:00 History sodium chloride 1 gram tablet 2 tab PO BID 01/20/22 04/12/23 04/11/23 21:00 History insulin lispro 100 unit/mL 1 sliding scale dose subcut TIDAC 03/12/22 04/12/23 04/11/23 21:00 History subcutaneous solution (Humalog U-100 Insulin) omeprazole magnesium 10 mg oral 40 mg PO BID 03/12/22 04/12/23 04/11/23 21:00 History suspension,delayed release ascorbic acid (vitamin C) 500 mg 500 mg PO BID 03/25/23 04/12/23 04/11/23 21:00 History tablet cranberry fruit 450 mg tablet 450 mg PO DAILY 03/25/23 04/12/23 04/11/23 09:00 History estradiol 0.01% (0.1 mg/gram) 0.5 appful vaginal MOWEFR 03/25/23 04/12/23 04/10/23 History vaginal cream (Estrace) insulin glargine 100 unit/mL (3 6 unit subcut BEDTIME 03/25/23 04/12/23 04/11/23 21:00 History mL) subcutaneous pen (Lantus Solostar U-100 Insulin) lisinopril 5 mg tablet 5 mg PO DAILY 03/25/23 04/12/23 04/11/23 09:00 History Physical Exam Vital Signs and Narrative: Vital Signs: Last Vital Signs Temp 98.3 F 04/12/23 08:33 Pulse 88 04/12/23 16:12 Resp 18 04/12/23 16:12 BP 126/48 L 04/12/23 16:12 Pulse Ox 96 04/12/23 16:12 O2 Del Method Room Air 04/12/23 16:12 BMI result Body Mass Index 20.7 Const: Other: awake alert somewhat confused but easily reoriented Resp: Other: clear to auscultation bilaterally no rales rhonchi or wheezes Cardio: Other: no S4; positive S1-S2; no S3 murmurs rubs or gallops GI: Other: soft nontender nondistended normoactive bowel soun Neuro: Other: cranial nerves 2-12 grossly intact as tested motor appears 5/5 all extremities sensation intact Extrem: Other: positive edema Results Labs 04/12/23 05:14 04/12/23 05:37 Labs: Laboratory Results - last 24 hr 04/12/23 04/12/23 04/12/23 05:14 05:37 05:55 MCV 93.5 MCH 30.2 MCHC 32.3 RDW 13.2 Plt Count 295 MPV 9.9 Immature Gran % (Auto) 0.4 Neut % (Auto) 59.4 Lymph % (Auto) 23.6 Schleicher % (Auto) 12.4 H Eos % (Auto) 3.6 Baso % (Auto) 0.6 Lymph # (Auto) 1.6 Schleicher # (Auto) 0.8 Eos # (Auto) 0.2 Baso # (Auto) 0.0 Abs Immat Gran (auto) 0.03 Absolute Neuts (auto) 4.0 Absolute Nucleated RBC 0.000 Nucleated RBC % (auto) 0.0 Anion Gap 18 Estim Creat Clear Calc 48.8 Estimated GFR > 60 POC Glucose Random Glucose 349 H Calcium 9.2 Total Bilirubin 0.5 Direct Bilirubin 0.2 AST 16 ALT 11 Alkaline Phosphatase 154 H Total Protein 6.6 Albumin 4.0 Lipase 11 Urine Color Yellow Urine Appearance Clear Urine pH 6.5 Ur Specific [place] 1.010 Urine Protein 300 (3+) H Urine Glucose (UA) >=1000 H Urine Ketones Trace Urine Blood Trace H Urine Nitrite Negative Ur Leukocyte Esterase Negative Urine RBC 0-2 Urine WBC 0-5 Ur Squamous Epith Cells 0-2 Urine Bacteria None Seen Hyaline Casts 0-2 04/12/23 04/12/23 10:01 13:28 MCV MCH MCHC RDW Plt Count MPV Immature Gran % (Auto) Neut % (Auto) Lymph % (Auto) Schleicher % (Auto) Eos % (Auto) Baso % (Auto) Lymph # (Auto) Schleicher # (Auto) Eos # (Auto) Baso # (Auto) Abs Immat Gran (auto) Absolute Neuts (auto) Absolute Nucleated RBC Nucleated RBC % (auto) Anion Gap Estim Creat Clear Calc Estimated GFR POC Glucose 301 H 502 H* Random Glucose Calcium Total Bilirubin Direct Bilirubin AST ALT Alkaline Phosphatase Total Protein Albumin Lipase Urine Color Urine Appearance Urine pH Ur Specific [place] Urine Protein Urine Glucose (UA) Urine Ketones Urine Blood Urine Nitrite Ur Leukocyte Esterase Urine RBC Urine WBC Ur Squamous Epith Cells Urine Bacteria Hyaline Casts Imaging Radiologist's Impressions: Impressions Head CT 04/12/23 06:17 IMPRESSION: No acute intracranial pathology. Chronic volume loss with small vessel ischemic change. Assessment and Plan (1) Syncope: Status: Acute (2) Hyponatremia: Status: Acute (3) DM type 1 (diabetes mellitus, type 1): Status: Acute Plan 77-year-old female presents after what describes as a focal seizure type episode after which she was confused more than baseline. Initially she recounted her childhood welling however as time passed she was more oriented to the present time and place. Patient's states she recently had an EEG at [facility] which was negative. In the emergency room CT of the head was negative labs were essentially unremarkable and urine was without active sediment 1.Syncopy with confusion (in backdrop of known dementia ) - admit to telemetry - neurology consult - repeat EEG 2. Hyponatremia - sodium at baseline ( osmostat reset) -follow renals/divalents 3.DMII - control at baseline - continue home insulin regimen -lispro correctional scale 4.Hypertension - acceptable control on current therapies - adjust as indicated Full Code Galdino will require 2 inpatient night stays to workup presenting complaint of syncope. This cannot be achieved a lesser acute setting Time Spent With Patient Time: Total time managing care of this patient today ____ minutes. Quality Stroke Does the patient have a stroke diagnosis?: No VTE Prior VTE?: No VTE Risk Level:: Medical - moderate - high VTE Device Contraindication: Treatment Not Indicated VTE Drug Contraindication: N/A - Med Ordered
[2023-04-12 18:09] LABS: Glucose, Whole Blood 221 mg/dL (60-115)
[2023-04-12 20:12] LABS: Glucose, Whole Blood 194 mg/dL (60-115)
[2023-04-12] MEDS: Sodium Chloride Tab 1 GM TABLET 2 GM PO (22:32)
[2023-04-12] MEDS: Atorvastatin Calcium 10 MG TABLET PO (22:32)
[2023-04-12] MEDS: Ascorbic Acid 500 MG TABLET PO (22:32)
[2023-04-12] MEDS: Insulin Glargine,Hum.rec.anlog 100 UNIT/ML 10 ML VIAL 6 UNIT SUBCUT (22:33)
[2023-04-13] VITALS: BP 125/60; PULSE 91; RESP 16; TEMP 36.1; O2SAT 91
[2023-04-13 03:12] VITALS: BP 156/68; PULSE 86; RESP 16; TEMP 37.1; O2SAT 93
[2023-04-13] MEDS: Omeprazole 40 MG CAPSULE.DR PO ×2 (06:22→16:54)
[2023-04-13 07:39] LABS: Glucose, Whole Blood 236 mg/dL (60-115)
[2023-04-13 08:00] VITALS: BP 162/74; PULSE 82; RESP 20; TEMP 36.6; O2SAT 93
[2023-04-13] MEDS: Cyanocobalamin (Vitamin B-12) 500 MCG TABLET PO (09:44)
[2023-04-13] MEDS: Methenamine Hippurate 1 GM TABLET PO ×2 (09:44→16:54)
[2023-04-13] MEDS: Ascorbic Acid 500 MG TABLET PO ×2 (09:44→20:39)
[2023-04-13] MEDS: Donepezil HCl 10 MG TABLET PO (09:44)
[2023-04-13] MEDS: lisinopriL 5 MG TABLET PO (09:44)
[2023-04-13] MEDS: Sodium Chloride Tab 1 GM TABLET 2 GM PO ×2 (09:45→20:55)
[2023-04-13] MEDS: Insulin Lispro 100 UNIT/ML 3 ML VIAL SUBCUT ×6 (09:46→20:39)
[2023-04-13] MEDS: 0.9 % Sodium Chloride Flush 3 ML SYRINGE IVFLUSH ×2 (09:48→17:00)
[2023-04-13] MEDS: Enoxaparin Sodium 40 MG/0.4 ML SYRINGE SUBCUT (09:48)
[2023-04-13 11:48] LABS: Glucose, Whole Blood 325 mg/dL (60-115)
--- NOTE | 2023-04-13 11:48 | MHC.CM.PN ---
Interview conducted w/Pt and in room. IMM: 04/13/23. Lives at home w/. PCP on file is accurate. No prior services. Equip owned: WC, Txfr chair, commode, stair lift for 3 stairs, bathroom and kitchen are built for full handicapped accessible and has ramp out to the car for safe WC access. D/C plan is to return home via (?w/potential services). CM to follow.
[2023-04-13 12:00] VITALS: BP 130/58; PULSE 77; RESP 20; TEMP 36.7; O2SAT 98
--- NOTE | 2023-04-13 15:00 | HO.PM.IMPN ---
Subjective Subjective Date of Service: 04/13/23 Interval History: No further tracking activity noted since admission. No acute issues overnight Review of Systems denies chest pain Denies shortness of breath Denies nausea vomiting diarrhea Denies fever chills Physical Exam Vital Signs: Vital Signs: Last Vital Signs Temp 98.1 F 04/13/23 12:00 Pulse 77 04/13/23 12:00 Resp 20 04/13/23 12:00 BP 130/58 L 04/13/23 12:00 Pulse Ox 98 04/13/23 12:00 O2 Del Method Room Air 04/13/23 12:00 BMI result Body Mass Index 20.7 Const: Other: awake alert somewhat confused but easily reoriented Resp: Other: clear to auscultation bilaterally no rales rhonchi or wheezes Cardio: Other: no S4; positive S1-S2; no S3 murmurs rubs or gallops GI: Other: soft nontender nondistended normoactive bowel soun Neuro: Other: cranial nerves 2-12 grossly intact as tested motor appears 5/5 all extremities sensation intact Extrem: Other: positive edema Objective Data Active Medications Ascorbic Acid (Ascorbic Acid 500 Mg Tablet) 500 mg PO BID [facility] Last Admin: 04/13/23 09:44 Dose: 500 mg Documented By: ALEXANDRA Atorvastatin Calcium (Atorvastatin Calcium 10 Mg Tablet) 10 mg PO BEDTIME [facility] Last Admin: 04/12/23 22:32 Dose: 10 mg Documented By: JOJO Cyanocobalamin (Cyanocobalamin (Vitamin B-12) 500 Mcg Tablet) 500 mcg PO DAILY [facility] Last Admin: 04/13/23 09:44 Dose: 500 mcg Documented By: ALEXANDRA Dextrose (Dextrose 50 % 25 Gm/50 Ml Syringe) 25 gm IVPUSH Q15M PRN; Protocol PRN Reason: per Hypoglycemia Standing Ord. Donepezil HCl (Donepezil Hcl 10 Mg Tablet) 10 mg PO DAILY [facility] Last Admin: 04/13/23 09:44 Dose: 10 mg Documented By: ALEXANDRA Enoxaparin Sodium (Enoxaparin Sodium 40 Mg/0.4 Ml Syringe) 40 mg SUBCUT Q24H [facility] Last Admin: 04/13/23 09:48 Dose: 40 mg Documented By: ALEXANDRA Glucose (Glucose Gel 15 Gm Gel..Gram.) 15 gm PO Q15M PRN; Protocol PRN Reason: per Hypoglycemia Standing Ord. Insulin Glargine (Insulin Glargine,Hum.Rec.Anlog 100 Unit/Ml 10 Ml Vial) 6 unit SUBCUT BEDTIME [facility] Last Admin: 04/12/23 22:33 Dose: 6 unit Documented By: JOJO Insulin Human Lispro (Insulin Lispro 100 Unit/Ml 3 Ml Vial) 0 unit SUBCUT TIDAC [facility]; Protocol Last Admin: 04/13/23 12:39 Dose: 3 unit Documented By: ALEJANDRA Insulin Human Lispro (Insulin Lispro 100 Unit/Ml 3 Ml Vial) 0 - 2 unit SUBCUT DAILY@1630 [facility] Last Admin: 04/12/23 18:38 Dose: Not Given Documented By: SAMIRA Non-Admin Reason: pt not having dinner Insulin Human Lispro (Insulin Lispro 100 Unit/Ml 3 Ml Vial) 3 - 4 unit SUBCUT DAILY@1200 [facility] Last Admin: 04/13/23 12:41 Dose: 4 unit Documented By: ALEJANDRA Insulin Human Lispro (Insulin Lispro 100 Unit/Ml 3 Ml Vial) 4 unit SUBCUT DAILY [facility] Last Admin: 04/13/23 09:46 Dose: 4 unit Documented By: ALEXANDRA Insulin Human Lispro (Insulin Lispro 100 Unit/Ml 3 Ml Vial) 0 unit SUBCUT QIDACHS [facility]; Protocol Last Admin: 04/13/23 12:40 Dose: 8 unit Documented By: ALEJANDRA Lisinopril (Lisinopril 5 Mg Tablet) 5 mg PO DAILY [facility]; Protocol Last Admin: 04/13/23 09:44 Dose: 5 mg Documented By: ALEXANDRA Methenamine Hippurate (Methenamine Hippurate 1 Gm Tablet) 1 gm PO BID@0900,1700 [facility] Last Admin: 04/13/23 09:44 Dose: 1 gm Documented By: ALEXANDRA Non-Formulary Medication (Estradiol [Estrace]) 0.5 appful VAGINAL MOWEFR [facility] Omeprazole (Omeprazole 40 Mg Capsule.) 40 mg PO BID@0630,1630 [facility] Last Admin: 04/13/23 06:22 Dose: 40 mg Documented By: JOJO Pharmacy Consult (Consult Rx Perform Med Rec) 1 each MISCELLANE ONCE PRN PRN Reason: Consult order Sodium Chloride (0.9 % Sodium Chloride Flush 3 Ml Syringe) 3 ml IVFLUSH QSHIFT [facility] Last Admin: 04/13/23 09:48 Dose: 3 ml Documented By: ALEXANDRA Sodium Chloride (Sodium Chloride Tab 1 Gm Tablet) 2 gm PO BID [facility] Last Admin: 04/13/23 09:45 Dose: 2 gm Documented By: ALEXANDRA Vitamin D (Cholecalciferol (Vitamin D3) 25 Mcg Tablet) 125 mcg PO DAILY@1700 [facility] Last Admin: 04/12/23 17:32 Dose: 125 mcg Documented By: KELLY Labs 04/12/23 05:14 04/12/23 05:37 Labs: Laboratory Results - last 24 hr 04/12/23 04/12/23 04/13/23 18:05 20:05 07:33 POC Glucose 221 H 194 H 236 H 04/13/23 11:40 POC Glucose 325 H Assessment and Plan (1) Syncope: Status: Acute (2) Hyponatremia: Status: Acute (3) DM type 1 (diabetes mellitus, type 1): Status: Acute Plan 77-year-old female presents after what describes as a focal seizure type episode after which she was confused more than baseline. Initially she recounted her childhood welling however as time passed she was more oriented to the present time and place. Patient's states she recently had an EEG at [facility] which was negative. In the emergency room CT of the head was negative labs were essentially unremarkable and urine was without active sediment 1.Syncopy with confusion (in backdrop of known dementia ).... No further activity as documented on arrival - admit to telemetry - neurology consult - repeat EEG 04/15 2. Hyponatremia - sodium at baseline ( osmostat reset) -follow renals/divalents 3.DMII - control at baseline - continue home insulin regimen -lispro correctional scale 4.Hypertension - acceptable control on current therapies - adjust as indicated Full Code Lovenox Patient will require ongoing hospitalization for complete workup of syncope with question of seizure Time Spent With Patient Time: Total time managing care of this patient today ____ minutes. Quality Stroke Does the patient have a stroke diagnosis?: No VTE Prior VTE?: No VTE Risk Level:: Medical - moderate - high VTE Device Contraindication: Treatment Not Indicated VTE Drug Contraindication: N/A - Med Ordered
[2023-04-13 15:25] VITALS: BP 128/62; PULSE 76; RESP 18; TEMP 37; O2SAT 97
[2023-04-13 16:20] LABS: Glucose, Whole Blood 140 mg/dL (60-115)
[2023-04-13] MEDS: Cholecalciferol (Vitamin D3) 25 MCG TABLET 125 MCG PO (16:54)
[2023-04-13 20:00] VITALS: BP 158/87; PULSE 86; RESP 17; TEMP 37.1; O2SAT 97
[2023-04-13] MEDS: Atorvastatin Calcium 10 MG TABLET PO (20:39)
[2023-04-13 20:40] LABS: Glucose, Whole Blood 231 mg/dL (60-115)
[2023-04-13] MEDS: Insulin Glargine,Hum.rec.anlog 100 UNIT/ML 10 ML VIAL 6 UNIT SUBCUT (20:40)
[2023-04-14] VITALS (7 sets, daily range): BP systolic 131–181; BP diastolic 62–87; PULSE 78–90; RESP 17–20; TEMP 36.2–37; O2SAT 96–98
[2023-04-14] MEDS: hydrALAZINE HCl 20 MG/ML VIAL 5 MG IVPUSH (05:58)
[2023-04-14] MEDS: Omeprazole 40 MG CAPSULE.DR PO ×2 (06:00→17:38)
[2023-04-14 06:14] LABS: MANUAL DIFF FLAG NO
[2023-04-14 06:20] LABS: Basophils Percent Auto 0.8 % (0-2); Eosinophils Absolute Auto 0.1 X10*3/uL (0.0-0.4); Eosinophils Percent Auto 2.6 % (0-4); Hematocrit 32.7 % (37.0-47.0); Hemoglobin 10.8 g/dl (12.0-16.0); Imm Gran Abs Auto 0.01 X10*3/uL (0.00-0.03); Imm Gran Pct Auto 0.3 % (0.0-0.4); Lymphocytes Percent Auto 24.9 % (20-40); Mean Corpuscular Hemoglobin 30.4 pg (27.0-33.0); Mean Corpuscular Volume 92.1 fL (80.0-98.0); Monocytes Absolute Auto 0.6 X10*3/uL (0.1-1.2); Monocytes Percent Auto 14.1 % (2-11); Neutrophils Absolute Auto 2.2 x10*3/uL (2.0-8.3); Neutrophils Percent Auto 57.3 % (45-73); Platelet Count 275 X10*3/uL (160-400); Red Blood Count 3.55 X10*6/uL (4.20-5.50); Red Cell Distribution Width 13.2 % (11.0-16.0); White Blood Count 3.9 X10*3/uL (4.8-10.8)
[2023-04-14 06:36] LABS: Alanine Aminotransferase 10 U/L (0-31); Albumin Level 3.5 g/dL (3.5-5.0); Alkaline Phosphatase 86 U/L (39-117); Anion Gap 16 (12-20); Aspartate Amino Transferase 12 U/L (5-31); Bilirubin Total 0.5 mg/dL (0.0-1.0); Blood Urea Nitrogen 20 mg/dL (9-16); Calcium 9.3 mg/dL (8.4-10.2); Carbon Dioxide 21 mmol/L (22-29); Chloride 101 mmol/L (96-108); Creatinine Clr Calc Pharmacy 49.3; Estimated Glomerular Filt Rate > 60; Glucose Fasting 186 mg/dL (60-99); Potassium 4.1 mmol/L (3.3-5.1); Sodium 134 mmol/L (135-145); Total Protein 5.9 g/dL (6.5-8.0)
[2023-04-14 07:37] LABS: Glucose, Whole Blood 199 mg/dL (60-115)
[2023-04-14] MEDS: Insulin Lispro 100 UNIT/ML 3 ML VIAL SUBCUT ×7 (08:42→22:09)
[2023-04-14] MEDS: Sodium Chloride Tab 1 GM TABLET 2 GM PO ×2 (08:45→22:08)
[2023-04-14] MEDS: lisinopriL 5 MG TABLET PO (08:45)
[2023-04-14] MEDS: Methenamine Hippurate 1 GM TABLET PO ×2 (08:45→18:42)
[2023-04-14] MEDS: Enoxaparin Sodium 40 MG/0.4 ML SYRINGE SUBCUT (08:46)
[2023-04-14] MEDS: Donepezil HCl 10 MG TABLET PO (08:46)
[2023-04-14] MEDS: Ascorbic Acid 500 MG TABLET PO ×2 (08:46→22:08)
[2023-04-14] MEDS: Cyanocobalamin (Vitamin B-12) 500 MCG TABLET PO (08:46)
[2023-04-14] MEDS: 0.9 % Sodium Chloride Flush 3 ML SYRINGE IVFLUSH ×3 (08:46→22:09)
[2023-04-14 11:33] LABS: Glucose, Whole Blood 386 mg/dL (60-115)
--- NOTE | 2023-04-14 15:06 | P.PNIM_ITS ---
Subjective Subjective Date of Service: 04/14/23 Interval History: Back to baseline per . No further seizure-like activity noted Review of Systems denies chest pain Denies shortness of breath Denies nausea vomiting diarrhea Denies fever chills Physical Exam Vital Signs: Vital Signs: Last Vital Signs Temp 97.8 F 04/14/23 11:27 Pulse 78 04/14/23 11:27 Resp 20 04/14/23 11:27 BP 162/70 H 04/14/23 11:27 Pulse Ox 96 04/14/23 11:27 O2 Del Method Room Air 04/14/23 11:27 BMI result Body Mass Index 20.7 Const: Other: awake alert somewhat confused but easily reoriented Resp: Other: clear to auscultation bilaterally no rales rhonchi or wheezes Cardio: Other: no S4; positive S1-S2; no S3 murmurs rubs or gallops GI: Other: soft nontender nondistended normoactive bowel soun Neuro: Other: cranial nerves 2-12 grossly intact as tested motor appears 5/5 all extremities sensation intact Extrem: Other: positive edema Objective Data Active Medications Ascorbic Acid (Ascorbic Acid 500 Mg Tablet) 500 mg PO BID [facility] Last Admin: 04/14/23 08:46 Dose: 500 mg Documented By: ALEXANDRA Atorvastatin Calcium (Atorvastatin Calcium 10 Mg Tablet) 10 mg PO BEDTIME [facility] Last Admin: 04/13/23 20:39 Dose: 10 mg Documented By: JOJO Cyanocobalamin (Cyanocobalamin (Vitamin B-12) 500 Mcg Tablet) 500 mcg PO DAILY [facility] Last Admin: 04/14/23 08:46 Dose: 500 mcg Documented By: ALEXANDRA Dextrose (Dextrose 50 % 25 Gm/50 Ml Syringe) 25 gm IVPUSH Q15M PRN; Protocol PRN Reason: per Hypoglycemia Standing Ord. Donepezil HCl (Donepezil Hcl 10 Mg Tablet) 10 mg PO DAILY [facility] Last Admin: 04/14/23 08:46 Dose: 10 mg Documented By: ALEXANDRA Enoxaparin Sodium (Enoxaparin Sodium 40 Mg/0.4 Ml Syringe) 40 mg SUBCUT Q24H [facility] Last Admin: 04/14/23 08:46 Dose: 40 mg Documented By: ALEXANDRA Glucose (Glucose Gel 15 Gm Gel..Gram.) 15 gm PO Q15M PRN; Protocol PRN Reason: per Hypoglycemia Standing Ord. Insulin Glargine (Insulin Glargine,Hum.Rec.Anlog 100 Unit/Ml 10 Ml Vial) 6 unit SUBCUT BEDTIME [facility] Last Admin: 04/13/23 20:40 Dose: 6 unit Documented By: JOJO Insulin Human Lispro (Insulin Lispro 100 Unit/Ml 3 Ml Vial) 0 unit SUBCUT TIDAC [facility]; Protocol Last Admin: 04/14/23 13:01 Dose: 10 unit Documented By: ALEXANDRA Insulin Human Lispro (Insulin Lispro 100 Unit/Ml 3 Ml Vial) 0 - 2 unit SUBCUT DAILY@1630 [facility] Last Admin: 04/13/23 16:47 Dose: Not Given Documented By: ALEXANDRA Non-Admin Reason: No Insulin Coverage Insulin Human Lispro (Insulin Lispro 100 Unit/Ml 3 Ml Vial) 3 - 4 unit SUBCUT DAILY@1200 [facility] Last Admin: 04/14/23 13:03 Dose: 4 unit Documented By: ALEXANDRA Insulin Human Lispro (Insulin Lispro 100 Unit/Ml 3 Ml Vial) 4 unit SUBCUT DAILY [facility] Last Admin: 04/14/23 08:44 Dose: 4 unit Documented By: ALEXANDRA Insulin Human Lispro (Insulin Lispro 100 Unit/Ml 3 Ml Vial) 0 unit SUBCUT QIDACHS [facility]; Protocol Last Admin: 04/14/23 08:45 Dose: 2 unit Documented By: ALEXANDRA Lisinopril (Lisinopril 5 Mg Tablet) 5 mg PO DAILY [facility]; Protocol Last Admin: 04/14/23 08:45 Dose: 5 mg Documented By: ALEXANDRA Methenamine Hippurate (Methenamine Hippurate 1 Gm Tablet) 1 gm PO BID@0900,1700 [facility] Last Admin: 04/14/23 08:45 Dose: 1 gm Documented By: ALEXANDRA Non-Formulary Medication (Estradiol [Estrace]) 0.5 appful VAGINAL MOWEFR [facility] Omeprazole (Omeprazole 40 Mg Capsule.) 40 mg PO BID@0630,1630 [facility] Last Admin: 04/14/23 06:00 Dose: 40 mg Documented By: JOJO Pharmacy Consult (Consult Rx Perform Med Rec) 1 each MISCELLANE ONCE PRN PRN Reason: Consult order Sodium Chloride (0.9 % Sodium Chloride Flush 3 Ml Syringe) 3 ml IVFLUSH QSHIFT [facility] Last Admin: 04/14/23 08:46 Dose: 3 ml Documented By: ALEXANDRA Sodium Chloride (Sodium Chloride Tab 1 Gm Tablet) 2 gm PO BID [facility] Last Admin: 04/14/23 08:45 Dose: 2 gm Documented By: ALEXANDRA Vitamin D (Cholecalciferol (Vitamin D3) 25 Mcg Tablet) 125 mcg PO DAILY@1700 [facility] Last Admin: 04/13/23 16:54 Dose: 125 mcg Documented By: ALEXANDRA Labs 04/14/23 06:09 04/14/23 06:09 Labs: Laboratory Results - last 24 hr 04/13/23 04/13/23 04/14/23 15:22 20:31 06:09 MCV 92.1 MCH 30.4 MCHC 33.0 RDW 13.2 Plt Count 275 MPV 10.0 Immature Gran % (Auto) 0.3 Neut % (Auto) 57.3 Lymph % (Auto) 24.9 [place] % (Auto) 14.1 H Eos % (Auto) 2.6 Baso % (Auto) 0.8 Lymph # (Auto) 1.0 L [place] # (Auto) 0.6 Eos # (Auto) 0.1 Baso # (Auto) 0.0 Abs Immat Gran (auto) 0.01 Absolute Neuts (auto) 2.2 Absolute Nucleated RBC 0.000 Nucleated RBC % (auto) 0.0 Anion Gap Estim Creat Clear Calc Estimated GFR POC Glucose 140 H 231 H Fasting Glucose Calcium Total Bilirubin AST ALT Alkaline Phosphatase Total Protein Albumin 04/14/23 04/14/23 04/14/23 06:09 07:31 11:28 MCV MCH MCHC RDW Plt Count MPV Immature Gran % (Auto) Neut % (Auto) Lymph % (Auto) [place] % (Auto) Eos % (Auto) Baso % (Auto) Lymph # (Auto) [place] # (Auto) Eos # (Auto) Baso # (Auto) Abs Immat Gran (auto) Absolute Neuts (auto) Absolute Nucleated RBC Nucleated RBC % (auto) Anion Gap 16 Estim Creat Clear Calc 49.3 Estimated GFR > 60 POC Glucose 199 H 386 H* Fasting Glucose 186 H Calcium 9.3 Total Bilirubin 0.5 AST 12 ALT 10 Alkaline Phosphatase 86 Total Protein 5.9 L Albumin 3.5 Assessment and Plan (1) Syncope: Status: Acute (2) Hyponatremia: Status: Acute (3) DM type 1 (diabetes mellitus, type 1): Status: Acute Plan 77-year-old female presents after what describes as a focal seizure type episode after which she was confused more than baseline. Initially she recounted her childhood welling however as time passed she was more oriented to the present time and place. Patient's states she recently had an EEG at [facility] which was negative. In the emergency room CT of the head was negative labs were essentially unremarkable and urine was without active sediment 1.Syncopy with confusion (in backdrop of known dementia ).... No further activity as documented on arrival - admit to telemetry - neurology consult - repeat EEG 04/15 2. Hyponatremia -sodium at baseline ( osmostat reset) -follow renals/divalents 3.DMII - control at baseline - continue home insulin regimen -lispro correctional scale 4.Hypertension - acceptable control on current therapies - adjust as indicated Full Code Lovenox Patient will require ongoing hospitalization for complete workup of syncope with question of seizure Time Spent With Patient Time: Total time managing care of this patient today ____ minutes. Quality Stroke Does the patient have a stroke diagnosis?: No VTE Prior VTE?: No VTE Risk Level:: Medical - moderate - high VTE Device Contraindication: Treatment Not Indicated VTE Drug Contraindication: N/A - Med Ordered
[2023-04-14 16:12] LABS: Glucose, Whole Blood 168 mg/dL (60-115)
[2023-04-14] MEDS: Cholecalciferol (Vitamin D3) 25 MCG TABLET 125 MCG PO (18:42)
[2023-04-14 20:24] LABS: Glucose, Whole Blood 225 mg/dL (60-115)
[2023-04-14] MEDS: Atorvastatin Calcium 10 MG TABLET PO (22:08)
[2023-04-14] MEDS: Insulin Glargine,Hum.rec.anlog 100 UNIT/ML 10 ML VIAL 6 UNIT SUBCUT (22:08)
[2023-04-15 03:59] VITALS: BP 167/72; PULSE 87; RESP 18; TEMP 36.3; O2SAT 97
[2023-04-15 06:16] LABS: MANUAL DIFF FLAG NO
[2023-04-15 06:23] LABS: Basophils Percent Auto 0.6 % (0-2); Eosinophils Absolute Auto 0.2 X10*3/uL (0.0-0.4); Eosinophils Percent Auto 3.4 % (0-4); Hematocrit 32.5 % (37.0-47.0); Hemoglobin 10.6 g/dl (12.0-16.0); Imm Gran Abs Auto 0.01 X10*3/uL (0.00-0.03); Imm Gran Pct Auto 0.2 % (0.0-0.4); Lymphocytes Absolute Auto 0.9 X10*3/uL (1.2-4.9); Lymphocytes Percent Auto 17.5 % (20-40); Mean Corpuscular HGB Conc 32.6 g/dl (31.0-35.0); Mean Corpuscular Hemoglobin 30.1 pg (27.0-33.0); Mean Corpuscular Volume 92.3 fL (80.0-98.0); Mean Platelet Volume 10.1 fL (9.4-12.3); Monocytes Absolute Auto 0.7 X10*3/uL (0.1-1.2); Monocytes Percent Auto 13.2 % (2-11); Neutrophils Absolute Auto 3.5 x10*3/uL (2.0-8.3); Neutrophils Percent Auto 65.1 % (45-73); Platelet Count 276 X10*3/uL (160-400); Red Blood Count 3.52 X10*6/uL (4.20-5.50); Red Cell Distribution Width 13.6 % (11.0-16.0); White Blood Count 5.3 X10*3/uL (4.8-10.8)
[2023-04-15 06:36] LABS: Alanine Aminotransferase 10 U/L (0-31); Albumin Level 3.3 g/dL (3.5-5.0); Alkaline Phosphatase 80 U/L (39-117); Anion Gap 15 (12-20); Aspartate Amino Transferase 11 U/L (5-31); Bilirubin Total 0.4 mg/dL (0.0-1.0); Blood Urea Nitrogen 18 mg/dL (9-16); Carbon Dioxide 23 mmol/L (22-29); Chloride 104 mmol/L (96-108); Creatinine Clr Calc Pharmacy 54.1; Estimated Glomerular Filt Rate > 60; Glucose Fasting 158 mg/dL (60-99); Potassium 4.3 mmol/L (3.3-5.1); Sodium 138 mmol/L (135-145); Total Protein 5.6 g/dL (6.5-8.0)
[2023-04-15] MEDS: Omeprazole 40 MG CAPSULE.DR PO (06:41)
[2023-04-15 07:08] VITALS: BP 165/74; PULSE 90; RESP 20; TEMP 36.2; O2SAT 95
[2023-04-15 07:14] LABS: Glucose, Whole Blood 161 mg/dL (60-115)
[2023-04-15] MEDS: Methenamine Hippurate 1 GM TABLET PO (08:40)
[2023-04-15] MEDS: lisinopriL 5 MG TABLET PO (08:40)
[2023-04-15] MEDS: Sodium Chloride Tab 1 GM TABLET 2 GM PO (08:40)
[2023-04-15] MEDS: Ascorbic Acid 500 MG TABLET PO (08:41)
[2023-04-15] MEDS: Cyanocobalamin (Vitamin B-12) 500 MCG TABLET PO (08:41)
[2023-04-15] MEDS: Donepezil HCl 10 MG TABLET PO (08:41)
[2023-04-15] MEDS: 0.9 % Sodium Chloride Flush 3 ML SYRINGE IVFLUSH (08:43)
[2023-04-15] MEDS: Insulin Lispro 100 UNIT/ML 3 ML VIAL SUBCUT ×4 (08:43→11:43)
[2023-04-15] MEDS: Enoxaparin Sodium 40 MG/0.4 ML SYRINGE SUBCUT (08:49)
--- NOTE | 2023-04-15 10:44 | P.PNIM_ITS ---
Subjective Subjective Date of Service: 04/15/23 Interval History: f/u on syncope, no arrythmia, nothing suggesive of seizure Physical Exam Vital Signs: Vital Signs: Last Vital Signs Temp 97.2 F 04/15/23 07:08 Pulse 90 04/15/23 07:08 Resp 20 04/15/23 07:08 BP 165/74 H 04/15/23 07:08 Pulse Ox 95 04/15/23 07:08 O2 Del Method Room Air 04/15/23 07:08 BMI result Body Mass Index 20.7 Const: Other: General: AO X 3, no acute distress Resp: CTA bilateral CVS: S1,S2,RRR GI: +BS, NT, no distention Skin: No rash Neuro: motor grossly intact Psych: appropriate affect Objective Data Active Medications Ascorbic Acid (Ascorbic Acid 500 Mg Tablet) 500 mg PO BID [facility] Last Admin: 04/15/23 08:41 Dose: 500 mg Documented By: GEORGE Atorvastatin Calcium (Atorvastatin Calcium 10 Mg Tablet) 10 mg PO BEDTIME [facility] Last Admin: 04/14/23 22:08 Dose: 10 mg Documented By: ALEXANDRA Cyanocobalamin (Cyanocobalamin (Vitamin B-12) 500 Mcg Tablet) 500 mcg PO DAILY [facility] Last Admin: 04/15/23 08:41 Dose: 500 mcg Documented By: GEORGE Dextrose (Dextrose 50 % 25 Gm/50 Ml Syringe) 25 gm IVPUSH Q15M PRN; Protocol PRN Reason: per Hypoglycemia Standing Ord. Donepezil HCl (Donepezil Hcl 10 Mg Tablet) 10 mg PO DAILY [facility] Last Admin: 04/15/23 08:41 Dose: 10 mg Documented By: GEORGE Enoxaparin Sodium (Enoxaparin Sodium 40 Mg/0.4 Ml Syringe) 40 mg SUBCUT Q24H [facility] Last Admin: 04/15/23 08:49 Dose: 40 mg Documented By: GEORGE Glucose (Glucose Gel 15 Gm Gel..Gram.) 15 gm PO Q15M PRN; Protocol PRN Reason: per Hypoglycemia Standing Ord. Insulin Glargine (Insulin Glargine,Hum.Rec.Anlog 100 Unit/Ml 10 Ml Vial) 6 unit SUBCUT BEDTIME [facility] Last Admin: 04/14/23 22:08 Dose: 6 unit Documented By: ALEXANDRA Insulin Human Lispro (Insulin Lispro 100 Unit/Ml 3 Ml Vial) 0 unit SUBCUT TIDAC [facility]; Protocol Last Admin: 04/15/23 07:46 Dose: Not Given Documented By: GEORGE Non-Admin Reason: No Insulin Coverage Insulin Human Lispro (Insulin Lispro 100 Unit/Ml 3 Ml Vial) 0 - 2 unit SUBCUT DAILY@1630 [facility] Last Admin: 04/14/23 17:36 Dose: 2 unit Documented By: ALEXANDRA Insulin Human Lispro (Insulin Lispro 100 Unit/Ml 3 Ml Vial) 3 - 4 unit SUBCUT DAILY@1200 [facility] Last Admin: 04/14/23 13:03 Dose: 4 unit Documented By: ALEXANDRA Insulin Human Lispro (Insulin Lispro 100 Unit/Ml 3 Ml Vial) 4 unit SUBCUT DAILY [facility] Last Admin: 04/15/23 08:43 Dose: 4 unit Documented By: GEORGE Insulin Human Lispro (Insulin Lispro 100 Unit/Ml 3 Ml Vial) 0 unit SUBCUT QIDACHS [facility]; Protocol Last Admin: 04/15/23 08:48 Dose: 2 unit Documented By: GEORGE Comments: threw away syringe with barcode Lisinopril (Lisinopril 5 Mg Tablet) 5 mg PO DAILY [facility]; Protocol Last Admin: 04/15/23 08:40 Dose: 5 mg Documented By: GEORGE Methenamine Hippurate (Methenamine Hippurate 1 Gm Tablet) 1 gm PO BID@0900,1700 [facility] Last Admin: 04/15/23 08:40 Dose: 1 gm Documented By: GEORGE Non-Formulary Medication (Estradiol [Estrace]) 0.5 appful VAGINAL MOWEFR [facility] Omeprazole (Omeprazole 40 Mg Capsule.) 40 mg PO BID@0630,1630 [facility] Last Admin: 04/15/23 06:41 Dose: 40 mg Documented By: ALEXANDRA Pharmacy Consult (Consult Rx Perform Med Rec) 1 each MISCELLANE ONCE PRN PRN Reason: Consult order Sodium Chloride (0.9 % Sodium Chloride Flush 3 Ml Syringe) 3 ml IVFLUSH QSHIFT [facility] Last Admin: 04/15/23 08:43 Dose: 3 ml Documented By: GEORGE Sodium Chloride (Sodium Chloride Tab 1 Gm Tablet) 2 gm PO BID [facility] Last Admin: 04/15/23 08:40 Dose: 2 gm Documented By: GEORGE Vitamin D (Cholecalciferol (Vitamin D3) 25 Mcg Tablet) 125 mcg PO DAILY@1700 [facility] Last Admin: 04/14/23 18:42 Dose: 125 mcg Documented By: ALEXANDRA Labs 04/15/23 06:09 04/15/23 06:09 Labs: Laboratory Results - last 24 hr 04/14/23 04/14/23 04/14/23 11:28 16:07 20:12 MCV MCH MCHC RDW Plt Count MPV Immature Gran % (Auto) Neut % (Auto) Lymph % (Auto) [place] % (Auto) Eos % (Auto) Baso % (Auto) Lymph # (Auto) [place] # (Auto) Eos # (Auto) Baso # (Auto) Abs Immat Gran (auto) Absolute Neuts (auto) Absolute Nucleated RBC Nucleated RBC % (auto) Anion Gap Estim Creat Clear Calc Estimated GFR POC Glucose 386 H* 168 H 225 H Fasting Glucose Calcium Total Bilirubin AST ALT Alkaline Phosphatase Total Protein Albumin 04/15/23 04/15/23 04/15/23 06:09 06:09 07:11 MCV 92.3 MCH 30.1 MCHC 32.6 RDW 13.6 Plt Count 276 MPV 10.1 Immature Gran % (Auto) 0.2 Neut % (Auto) 65.1 Lymph % (Auto) 17.5 L [place] % (Auto) 13.2 H Eos % (Auto) 3.4 Baso % (Auto) 0.6 Lymph # (Auto) 0.9 L [place] # (Auto) 0.7 Eos # (Auto) 0.2 Baso # (Auto) 0.0 Abs Immat Gran (auto) 0.01 Absolute Neuts (auto) 3.5 Absolute Nucleated RBC 0.000 Nucleated RBC % (auto) 0.0 Anion Gap 15 Estim Creat Clear Calc 54.1 Estimated GFR > 60 POC Glucose 161 H Fasting Glucose 158 H Calcium 9.0 Total Bilirubin 0.4 AST 11 ALT 10 Alkaline Phosphatase 80 Total Protein 5.6 L Albumin 3.3 L Assessment and Plan (1) Syncope: Status: Acute (2) Hyponatremia: Status: Acute (3) DM type 1 (diabetes mellitus, type 1): Status: Acute Plan 77-year-old female presents after what describes as a focal seizure type episode after which she was confused more than baseline. Initially she recounted her childhood welling however as time passed she was more oriented to the present time and place. Patient's states she recently had an EEG at [facility] which was negative. In the emergency room CT of the head was negative labs were essentially unremarkable and urine was without active sediment 1.Syncopy with confusion (in backdrop of known dementia ).... No further activity as documented on arrival - no arrythmia - neurology consult pending - has had recent negative eeg, cancel this one 2. Hyponatremia, acute on chronic, resolved. -sodium at baseline ( osmostat reset) -follow renals/divalents 3.DMII - control at baseline - continue home insulin regimen -lispro correctional scale 4.Hypertension - acceptable control on current therapies - adjust as indicated Full Code Lovenox Patient will require ongoing hospitalization for complete workup of syncope with question of seizure Time Spent With Patient Time: Total time managing care of this patient today ____ minutes. Quality Stroke Does the patient have a stroke diagnosis?: No VTE Prior VTE?: No VTE Risk Level:: Medical - moderate - high VTE Device Contraindication: Treatment Not Indicated VTE Drug Contraindication: N/A - Med Ordered
[2023-04-15 10:57] LABS: Glucose, Whole Blood 230 mg/dL (60-115)
[2023-04-15 11:22] VITALS: BP 141/64; PULSE 81; RESP 20; TEMP 36.4; O2SAT 96
--- NOTE | 2023-04-15 12:13 | PM.NEUROCN ---
History of Present Illness Data of Consult Service Date: 04/15/23 Primary Care Provider: Bob Stephenson MD HPI Reason for consult: Seizure 77-year-old female with a history of CAD, CKD, dementia, type 1 diabetes, GERD, HTN, HLD, hypothyroidism, POTS- chronically wheelchair-bound, recurrent UTI, brought to emergency department by ambulance for evaluation of altered level of consciousness and possible seizure.? stated that he found her in the bathroom undressed and soiled. When he tried to help, her head turned to the right side left arm went up and see started shaking with her eyes fully wide-awake. It lasted many minutes. She had no recollection of this event. Review of Systems Review of Systems: Underlying confusion probably related to dementia [facility] Past Medical History Medical History (Updated 04/15/23 @ 12:15 by Sophy rFeeman MD) CAD (coronary artery disease) CKD (chronic kidney disease), stage III COVID-19 Dementia DM type 1 (diabetes mellitus, type 1) Esophageal dilatation GERD (gastroesophageal reflux disease) Glaucoma HTN (hypertension) Hypercholesterolemia Hyperkalemia Hypothyroid Neuropathy Orthostatic hypotension POTS (postural orthostatic tachycardia syndrome) PPD positive QT prolongation Retinopathy Vitamin B12 deficiency Social History Social History Household Members: Significant Other Housing: House Do you presently have visiting nurse or other home services: No Unable to assess alcohol history related to: Unable to respond Alcohol intake: never Patient Tobacco Use Status: Never used Tobacco Smoked in Last 30 Days: No e-Cigarette/Vaping Use: Never Used Second Hand Smoke Exposure: No Use of substances other than those prescribed or required for medical reasons: No Currently Displaying Signs/Symptoms of Drug Intoxication Withdrawal: No Any prior treatment program specific to substance use: No Have you been hit, kicked, punched, or otherwise hurt by someone within the past year? If so, by whom?: No Do you feel safe in your current relationship?: Yes Is there a partner from a previous relationship who is making you feel unsafe now?: No Are you made to feel afraid or neglected: No Advance Directives: Yes Advance Directives on File: Yes Advance Directives Date on File: 03/26/23 Do you have thoughts of harming others: None Do you have a plan to hurt others: No Plan Recently lost weight without trying: No Nutrition Risks: Difficulty swallowing, Gastrointestinal Malabsorption and On aspiration precautions Patient : No service: No Current occupational status: retired Meds Allergies Allergy/AdvReac Type Severity Reaction Status Date / Time Sulfa (Sulfonamide Allergy Severe RASH/HIVES, Verified 02/14/22 14:30 Antibiotics) hives [SULFA (SULFONAMIDE ANTIBIOTICS)] insulin aspart Allergy Unknown HIVES Verified 02/14/22 14:30 [From NOVOLOG U-100 INSULIN ASPART] levofloxacin [From LEVAQUIN] AdvReac Intermediate BLOOD Verified 02/14/22 14:30 SUGAR DROPS milk [MILK] AdvReac Mild NAUSEA Verified 02/14/22 14:30 Active Medications: Current Medications Ascorbic Acid (Ascorbic Acid 500 Mg Tablet) 500 mg PO BID [facility] Last Admin: 04/15/23 08:41 Dose: 500 mg Atorvastatin Calcium (Atorvastatin Calcium 10 Mg Tablet) 10 mg PO BEDTIME [facility] Last Admin: 04/14/23 22:08 Dose: 10 mg Cyanocobalamin (Cyanocobalamin (Vitamin B-12) 500 Mcg Tablet) 500 mcg PO DAILY [facility] Last Admin: 04/15/23 08:41 Dose: 500 mcg Dextrose (Dextrose 50 % 25 Gm/50 Ml Syringe) 25 gm IVPUSH Q15M PRN; Protocol PRN Reason: per Hypoglycemia Standing Ord. Donepezil HCl (Donepezil Hcl 10 Mg Tablet) 10 mg PO DAILY [facility] Last Admin: 04/15/23 08:41 Dose: 10 mg Enoxaparin Sodium (Enoxaparin Sodium 40 Mg/0.4 Ml Syringe) 40 mg SUBCUT Q24H [facility] Last Admin: 04/15/23 08:49 Dose: 40 mg Glucose (Glucose Gel 15 Gm Gel..Gram.) 15 gm PO Q15M PRN; Protocol PRN Reason: per Hypoglycemia Standing Ord. Insulin Glargine (Insulin Glargine,Hum.Rec.Anlog 100 Unit/Ml 10 Ml Vial) 6 unit SUBCUT BEDTIME [facility] Last Admin: 04/14/23 22:08 Dose: 6 unit Insulin Human Lispro (Insulin Lispro 100 Unit/Ml 3 Ml Vial) 0 unit SUBCUT TIDAC [facility]; Protocol Last Admin: 04/15/23 11:43 Dose: 1 unit Insulin Human Lispro (Insulin Lispro 100 Unit/Ml 3 Ml Vial) 0 - 2 unit SUBCUT DAILY@1630 [facility] Last Admin: 04/14/23 17:36 Dose: 2 unit Insulin Human Lispro (Insulin Lispro 100 Unit/Ml 3 Ml Vial) 3 - 4 unit SUBCUT DAILY@1200 [facility] Last Admin: 04/14/23 13:03 Dose: 4 unit Insulin Human Lispro (Insulin Lispro 100 Unit/Ml 3 Ml Vial) 4 unit SUBCUT DAILY [facility] Last Admin: 04/15/23 08:43 Dose: 4 unit Insulin Human Lispro (Insulin Lispro 100 Unit/Ml 3 Ml Vial) 0 unit SUBCUT QIDACHS [facility]; Protocol Last Admin: 04/15/23 11:43 Dose: 4 unit Lisinopril (Lisinopril 5 Mg Tablet) 5 mg PO DAILY [facility]; Protocol Last Admin: 04/15/23 08:40 Dose: 5 mg Methenamine Hippurate (Methenamine Hippurate 1 Gm Tablet) 1 gm PO BID@0900,1700 [facility] Last Admin: 04/15/23 08:40 Dose: 1 gm Non-Formulary Medication (Estradiol [Estrace]) 0.5 appful VAGINAL MOWEFR [facility] Omeprazole (Omeprazole 40 Mg Capsule.Dr) 40 mg PO BID@0630,1630 [facility] Last Admin: 04/15/23 06:41 Dose: 40 mg Pharmacy Consult (Consult Rx Perform Med Rec) 1 each MISCELLANE ONCE PRN PRN Reason: Consult order Sodium Chloride (0.9 % Sodium Chloride Flush 3 Ml Syringe) 3 ml IVFLUSH QSHIFT [facility] Last Admin: 04/15/23 08:43 Dose: 3 ml Sodium Chloride (Sodium Chloride Tab 1 Gm Tablet) 2 gm PO BID [facility] Last Admin: 04/15/23 08:40 Dose: 2 gm Vitamin D (Cholecalciferol (Vitamin D3) 25 Mcg Tablet) 125 mcg PO DAILY@1700 [facility] Last Admin: 04/14/23 18:42 Dose: 125 mcg Home Medications Medication Instructions Recorded Confirmed Last Taken Type Lactobacillus rhamnosus GG 10 1 cap PO BID 10/14/21 04/12/23 04/11/23 21:00 History billion cell capsule (Culturelle) cholecalciferol (vitamin D3) 125 125 mcg PO DAILY@1700 10/14/21 04/12/23 04/11/23 17:00 History mcg (5,000 unit) tablet (Vitamin D3) cyanocobalamin (vitamin B-12) 500 500 mcg PO DAILY 10/14/21 04/12/23 04/11/23 09:00 History mcg tablet donepezil 10 mg tablet 10 mg PO DAILY 10/14/21 04/12/23 04/11/23 09:00 History insulin lispro 100 unit/mL 0 - 2 unit subcut DAILY@1630 10/14/21 04/12/23 04/11/23 16:30 History subcutaneous cartridge (Humalog U-100 Insulin) insulin lispro 100 unit/mL 3 - 4 unit subcut DAILY@1200 10/14/21 04/12/23 04/11/23 12:00 History subcutaneous cartridge (Humalog U-100 Insulin) insulin lispro 100 unit/mL 4 unit subcut DAILY 10/14/21 04/12/23 04/11/23 09:00 History subcutaneous cartridge (Humalog U-100 Insulin) methenamine hippurate 1 gram tablet 1 g PO BID@0900,1700 10/14/21 04/12/23 04/11/23 17:00 History simvastatin 20 mg tablet 20 mg PO BEDTIME 10/14/21 04/12/23 04/11/23 21:00 History sodium chloride 1 gram tablet 2 tab PO BID 01/20/22 04/12/23 04/11/23 21:00 History insulin lispro 100 unit/mL 1 sliding scale dose subcut TIDAC 03/12/22 04/12/23 04/11/23 21:00 History subcutaneous solution (Humalog U-100 Insulin) omeprazole magnesium 10 mg oral 40 mg PO BID 03/12/22 04/12/23 04/11/23 21:00 History suspension,delayed release ascorbic acid (vitamin C) 500 mg 500 mg PO BID 03/25/23 04/12/23 04/11/23 21:00 History tablet cranberry fruit 450 mg tablet 450 mg PO DAILY 03/25/23 04/12/23 04/11/23 09:00 History estradiol 0.01% (0.1 mg/gram) 0.5 appful vaginal MOWEFR 03/25/23 04/12/23 04/10/23 History vaginal cream (Estrace) insulin glargine 100 unit/mL (3 6 unit subcut BEDTIME 03/25/23 04/12/23 04/11/23 21:00 History mL) subcutaneous pen (Lantus Solostar U-100 Insulin) lisinopril 5 mg tablet 5 mg PO DAILY 03/25/23 04/12/23 04/11/23 09:00 History Physical Exam Vital Signs: Vital Signs: Last Vital Signs Temp 97.6 F 04/15/23 11:22 Pulse 81 04/15/23 11:22 Resp 20 04/15/23 11:22 BP 141/64 H 04/15/23 11:22 Pulse Ox 96 04/15/23 11:22 O2 Del Method Room Air 04/15/23 11:22 BMI result Body Mass Index 20.7 Neuro: Other: Alert and awake with normal spontaneity of speech fluency comprehension and affect. She was not in any distress. Face was symmetrical. Teeth were missing. There was no obvious focal weakness. Plantars were flexors Results Labs 04/15/23 06:09 04/15/23 06:09 Labs: Short CBC 04/15/23 Range/Units 06:09 WBC 5.3 (4.8-10.8) X10*3/uL Hgb 10.6 L (12.0-16.0) g/dl Hct 32.5 L (37.0-47.0) % Plt Count 276 (160-400) X10*3/uL BMP 04/15/23 06:09 Sodium 138 Potassium 4.3 Chloride 104 Carbon Dioxide 23 BUN 18 H Creatinine 0.81 Calcium 9.0 Liver Function 04/15/23 Range/Units 06:09 Total Bilirubin 0.4 (0.0-1.0) mg/dL AST 11 (5-31) U/L ALT 10 (0-31) U/L Alkaline Phosphatase 80 (39-117) U/L Albumin 3.3 L (3.5-5.0) g/dL head CT revealed moderately severe diffuse cerebral atrophy and moderate chronic microvascular ischemic changes. Assessment and Plan (1) Seizure: Status: Acute 77 years old woman with underlying degenerative dementia had a generalized seizure probably localize to right hemisphere. My recommendation is to start her on levetiracetam 500 mg twice a day. Time Spent With Patient Time: Total time managing care of this patient today ____ minutes. Procedures Date of Service Date of Service: 04/15/23
[2023-04-15 15:45] VITALS: BP 160/78; PULSE 97; RESP 14; TEMP 36.4; O2SAT 95
[2023-04-15 15:50] LABS: Glucose, Whole Blood 212 mg/dL (60-115)
--- NOTE | 2023-04-15 16:06 | P.DS_ITS ---
DS: Providers Provider Date of Service: 04/15/23 Date of admission: 04/12/23 09:44 Primary care physician: Bob Stephenson MD Consults: 04/12/23 15:36 Consult to Neurology Routine Consulting Provider: [facility] Reason for consultation: ?seizure. Has provider been notified: No DS: Diagnosis Discharge Diagnosis (1) Seizure: Status: Acute DS: Summary Hospital Course Hospital Course: Chief Complaint:? syncopal episode 77-year-old female with a history of CAD, CKD, dementia, type 1 diabetes, GERD, HTN, HLD, hypothyroidism, POTS- chronically wheelchair-bound, recurrent UTI, brought to emergency department by ambulance for evaluation of altered level of consciousness and possible seizure.? The states that at 00:12 hours the patient became confused.? She was taking her clothes off in urinated on the floor.? She did this multiple times and continued to be confused.? states that the patient believe that she was on at [facility] which was her home when she was a child and not where she actually lived.? The was eventually able to get the patient back in bed.? While the patient was lying in bed her eyes rolled into the back her head, her head turned to 1 side and she was rhythmically moving one arm. The states that it was a very forceful movement in even caused her to ripped her shirt.? The patient was not awake during this time and was not responding to questions that the was asking.? The believes the episode lasted approximately 12 minutes and afterwards the patient was very confused.? The patient's point of care glucose at the time was 272.? Paramedics reported that the patient has left arm was constricted and held to her chest when they arrived on the scene.? Since this event, the states the patient has been confused and normally she is much more oriented. Hospital course: She presented with a syncopal episode the description of which is consistent with seizure, she was observed overnight on telemetry with no evidence arrythmia, she is back to her baseline. Neurologist Dr. Freeman thinks patient suffered a generalized seizure originating in the right hemisphere and recommends Keppra 500 mg twice daily regimen. Time Spent with Patient Time attestation: Total time managing care of this patient today ____ minutes. Discharge coordination time: Greater than 30 minutes Quality: Safe Use of Opioids Does Pt have an Active Cancer Diagnosis on the Problem List?: No Quality: Stroke Does the patient have a stroke diagnosis?: No Physical Exam Vital Signs: Vital Signs: Last Vital Signs Temp 97.6 F 04/15/23 15:45 Pulse 97 04/15/23 15:45 Resp 14 04/15/23 15:45 BP 160/78 H 04/15/23 15:45 Pulse Ox 95 04/15/23 15:45 O2 Del Method Room Air 04/15/23 15:45 BMI result Body Mass Index 20.7 DS: Data Data Completed and Pending Completed studies during hospitalization [Text1]: Procedures Insertion of Endotracheal Airway into Trachea, Via Natural or Artificial Opening Endoscopic (10/14/21) Introduction of Vasopressor into Peripheral Vein, Percutaneous Approach (10/14/21) Respiratory Ventilation, Less than 24 Consecutive Hours (10/14/21) Labs on day of discharge: Laboratory Results - last 24 hr 04/14/23 04/14/23 04/15/23 16:07 20:12 06:09 WBC 5.3 RBC 3.52 L Hgb 10.6 L Hct 32.5 L MCV 92.3 MCH 30.1 MCHC 32.6 RDW 13.6 Plt Count 276 MPV 10.1 Immature Gran % (Auto) 0.2 Neut % (Auto) 65.1 Lymph % (Auto) 17.5 L [place] % (Auto) 13.2 H Eos % (Auto) 3.4 Baso % (Auto) 0.6 Lymph # (Auto) 0.9 L [place] # (Auto) 0.7 Eos # (Auto) 0.2 Baso # (Auto) 0.0 Abs Immat Gran (auto) 0.01 Absolute Neuts (auto) 3.5 Absolute Nucleated RBC 0.000 Nucleated RBC % (auto) 0.0 Sodium Potassium Chloride Carbon Dioxide Anion Gap BUN Creatinine Estim Creat Clear Calc Estimated GFR POC Glucose 168 H 225 H Fasting Glucose Calcium Total Bilirubin AST ALT Alkaline Phosphatase Total Protein Albumin 04/15/23 04/15/23 04/15/23 06:09 07:11 10:51 WBC RBC Hgb Hct MCV MCH MCHC RDW Plt Count MPV Immature Gran % (Auto) Neut % (Auto) Lymph % (Auto) [place] % (Auto) Eos % (Auto) Baso % (Auto) Lymph # (Auto) [place] # (Auto) Eos # (Auto) Baso # (Auto) Abs Immat Gran (auto) Absolute Neuts (auto) Absolute Nucleated RBC Nucleated RBC % (auto) Sodium 138 Potassium 4.3 Chloride 104 Carbon Dioxide 23 Anion Gap 15 BUN 18 H Creatinine 0.81 Estim Creat Clear Calc 54.1 Estimated GFR > 60 POC Glucose 161 H 230 H Fasting Glucose 158 H Calcium 9.0 Total Bilirubin 0.4 AST 11 ALT 10 Alkaline Phosphatase 80 Total Protein 5.6 L Albumin 3.3 L 04/15/23 15:47 WBC RBC Hgb Hct MCV MCH MCHC RDW Plt Count MPV Immature Gran % (Auto) Neut % (Auto) Lymph % (Auto) [place] % (Auto) Eos % (Auto) Baso % (Auto) Lymph # (Auto) [place] # (Auto) Eos # (Auto) Baso # (Auto) Abs Immat Gran (auto) Absolute Neuts (auto) Absolute Nucleated RBC Nucleated RBC % (auto) Sodium Potassium Chloride Carbon Dioxide Anion Gap BUN Creatinine Estim Creat Clear Calc Estimated GFR POC Glucose 212 H Fasting Glucose Calcium Total Bilirubin AST ALT Alkaline Phosphatase Total Protein Albumin Discharge Plan Discharge Anticipated Discharge Date/Time: 04/15/23 15:44 Patient Disposition: Home, Self-Care Discharge Diagnosis: Seizure Referrals: Bob Stephenson MD [Primary Care Provider] - 1 Week Discharge Medications: New levetiracetam [Keppra] 500 mg tablet 500 mg PO BID Qty: 60 0RF Continued sodium chloride 1 gram tablet 2 tab PO BID insulin lispro [Humalog U-100 Insulin] 100 unit/mL Solution 1 sliding scale dose SUBCUT TIDAC Protocol: Insulin Correction Scale Less than or equal to 110 ---- Give (units): 0 111 to 150 Give (units): 0 151 to 200 Give (units): 0 201 to 250 Give (units): 1 251 to 300 Give (units): 2 301 to 350 Give (units): 3 Greater than 350 Give (units): 4 Call MD if Blood Glucose > : 350 omeprazole magnesium 10 mg susp,delayed release for recon 40 mg PO BID donepezil 10 mg Tablet 10 mg PO DAILY simvastatin 20 mg Tablet 20 mg PO BEDTIME Humalog U-100 Insulin 100 unit/mL Cartridge 4 unit SUBCUT DAILY Humalog U-100 Insulin 100 unit/mL Cartridge 3 - 4 unit SUBCUT DAILY@1200 Rx Instructions: if BS < 200 give 3 unit if BS >/= 200 give 4 units plus the sliding scale Humalog U-100 Insulin 100 unit/mL Cartridge 0 - 2 unit subcut DAILY@1630 Rx Instructions: if BS < 150 give 0 unit if BS >/= 150 give 2 units plus the sliding scale methenamine hippurate 1 gram Tablet 1 g PO BID@0900,1700 Hold Instructions: hold until after complete course of antibiotics and then resume cyanocobalamin (vitamin B-12) 500 mcg Tablet 500 mcg PO DAILY cholecalciferol (vitamin D3) [Vitamin D3] 125 mcg (5,000 unit) Tablet 125 mcg PO DAILY@1700 Culturelle 10 billion cell Capsule 1 cap PO BID ascorbic acid (vitamin C) 500 mg Tablet 500 mg PO BID estradiol [Estrace] 0.01 % (0.1 mg/gram) Cream 0.5 appful VAGINAL MOWEFR Rx Instructions: for 14 days cranberry fruit 450 mg Tablet 450 mg PO DAILY Rx Instructions: administer with a meal insulin glargine [Lantus Solostar U-100 Insulin] 100 unit/mL (3 mL) insulin pen 6 unit subcut BEDTIME lisinopril 5 mg Tablet 5 mg PO DAILY Discharge Orders: Discharge Order (Routine); Ordered 04/15/23 Ordered By: Edward Bassett Diet: Advance to usual diet Activity on Discharge: As tolerated Stand Alone Forms: Patient Portal Discharge page Care Plan Goals: control of seizure Health Concerns: seizure Plan of Treatment: take keppra 500 mg twice daily Assessment: as above
--- NOTE | 2023-04-15 16:08 | MHC.CM.PN ---
PT TO DC HOME TODAY WITH NO SERVICES TO TRANSPORT
== END 2023-04-15 17:06 | disposition home or self-care (01) | DRG 101 ==
LOC: HO.ED 06:46 → HO.EDOVER 09:49 → HO.IMC 16:49
PROVIDERS: Emergency Medicine; Admitting Provider Hospitalist; Emergency Provider Emergency Medicine Emergency Medical Services; PCP Internal Medicine Rheumatology; Visit Provider Internal Medicine
DX: R56.9 Unspecified convulsions (principal); E87.1 Hypo-osmolality and hyponatremia; I25.10 Atherosclerotic heart disease of native coronary artery without angina pectoris; E78.00 Pure hypercholesterolemia, unspecified; F03.90 Unspecified dementia, unspecified severity, without behavioral disturbance, psychotic disturbance, mood disturbance, and anxiety; E03.9 Hypothyroidism, unspecified; E10.40 Type 1 diabetes mellitus with diabetic neuropathy, unspecified; Z99.3 Dependence on wheelchair; Z87.440 Personal history of urinary (tract) infections; Z79.899 Other long term (current) drug therapy
CPT/HCPCS: 36415; 70450; 80048; 80053; 80076; 81001; 82947; 83690; 85025; 93005; 97161; 99285; J1650

== ENCOUNTER → 2023-04-12 07:40 | Outpatient (BNV) | payer OTHER, SELFPAY | PROVIDERS: Admitting Provider Hospitalist; Emergency Provider Emergency Medicine Emergency Medical Services; PCP Internal Medicine Rheumatology; Visit Provider Internal Medicine Cardiovascular Disease | DX: R07.9 Chest pain, unspecified (principal) | CPT/HCPCS: 93010 ==

== ENCOUNTER → 2023-04-12 09:44 | Outpatient (BNV) | payer OTHER, SELFPAY | PROVIDERS: Admitting Provider Hospitalist; Emergency Provider Emergency Medicine Emergency Medical Services; PCP Internal Medicine Rheumatology; Visit Provider Hospitalist | DX: R56.9 Unspecified convulsions (principal) | CPT/HCPCS: 99223; 99232; 99233; 99239 ==

== ENCOUNTER 2023-08-28 16:18 | Inpatient (IN) | payer OTHER, SELFPAY ==
[2023-08-28] VITALS (8 sets, daily range): BP systolic 126–210; BP diastolic 68–110; PULSE 85–90; RESP 15–20; TEMP 36.1–36.8; O2SAT 95–99; BMI 18.8
--- NOTE | 2023-08-28 16:38 | ED.GENADULT ---
HPI - General Adult General Chief complaint: Altered Mental Status Stated complaint: UTI Time Seen by Provider: 08/28/23 16:36 Source: patient and family Mode of arrival: EMS Limitations: no limitations History of Present Illness HPI narrative: Patient is 78 years old with history of CAD , CKD dementia, type 1 diabetes, hypertension hypothyroid ,POTS syndrome, chronically wheelchair bound recurrent UTI him by EMS for increased confusion. Patient was admitted here last time in 04/07 with Klebsiella UTI patient was treated with Cefpodoxime on 08/14 and now she is on methenamine since 08/20 still feeling weak last night patient was very weak and urinated next to her bed no recent fall no head injury no fever or chills no back pain or abdominal pain or nausea vomiting patient denies any urinary complaints Related Data Home Medications Medication Instructions Recorded Confirmed Lactobacillus rhamnosus GG 10 1 cap PO DAILY 10/14/21 08/28/23 billion cell capsule (Culturelle) cholecalciferol (vitamin D3) 125 125 mcg PO DAILY@1700 10/14/21 08/28/23 mcg (5,000 unit) tablet (Vitamin D3) cyanocobalamin (vitamin B-12) 500 500 mcg PO DAILY 10/14/21 08/28/23 mcg tablet insulin lispro 100 unit/mL 0 - 2 unit subcut DAILY@1730 10/14/21 08/28/23 subcutaneous cartridge (Humalog U-100 Insulin) insulin lispro 100 unit/mL 3 - 4 unit subcut DAILY@1130 10/14/21 08/28/23 subcutaneous cartridge (Humalog U-100 Insulin) insulin lispro 100 unit/mL 4 unit subcut DAILY 10/14/21 08/28/23 subcutaneous cartridge (Humalog U-100 Insulin) methenamine hippurate 1 gram tablet 1 g PO BID@0900,1700 10/14/21 08/28/23 simvastatin 20 mg tablet 20 mg PO BEDTIME 10/14/21 08/28/23 sodium chloride 1 gram tablet 2 tab PO BID@0900,1700 01/20/22 08/28/23 insulin lispro 100 unit/mL 1 sliding scale dose subcut TIDAC 03/12/22 08/28/23 subcutaneous solution (Humalog U-100 Insulin) omeprazole magnesium 10 mg oral 40 mg PO DAILY 03/12/22 08/28/23 suspension,delayed release ascorbic acid (vitamin C) 500 mg 500 mg PO BID@0900,1700 03/25/23 08/28/23 tablet cranberry fruit 450 mg tablet 450 mg PO DAILY 03/25/23 08/28/23 estradiol 0.01% (0.1 mg/gram) 0.5 appful vaginal MOWEFR 03/25/23 08/28/23 vaginal cream (Estrace) lisinopril 5 mg tablet 5 mg PO DAILY 03/25/23 08/28/23 ferrous fumarate 324 mg (106 mg 324 mg PO DAILY 08/28/23 08/28/23 iron) tablet fosfomycin tromethamine 3 gram 1 packet PO Q3D 08/28/23 08/28/23 oral packet insulin glargine-yfgn 100 unit/mL 6 unit subcut BEDTIME 08/28/23 08/28/23 subcutaneous solution levetiracetam 500 mg tablet 500 mg PO BID@0900,1700 08/28/23 08/28/23 (Keppra) menthol 0.44 %-zinc oxide 20.6 % 1 appl topical BID PRN Skin 08/28/23 08/28/23 topical ointment (Calmoseptine) Irritation Allergies Allergy/AdvReac Type Severity Reaction Status Date / Time Sulfa (Sulfonamide Allergy Severe RASH/HIVES, Verified 08/28/23 16:33 Antibiotics) hives [SULFA (SULFONAMIDE ANTIBIOTICS)] insulin aspart Allergy Unknown HIVES Verified 08/28/23 16:33 [From NOVOLOG U-100 INSULIN ASPART] levofloxacin [From LEVAQUIN] AdvReac Intermediate BLOOD Verified 08/28/23 16:33 SUGAR DROPS milk [MILK] AdvReac Mild NAUSEA Verified 08/28/23 16:33 Review of Systems Review of Systems: Yes all other systems are reviewed and are negative [facility] Past Medical History Medical History Esophageal dilatation PPD positive Hyperkalemia Glaucoma Retinopathy QT prolongation POTS (postural orthostatic tachycardia syndrome) Orthostatic hypotension Neuropathy Hypothyroid Hypercholesterolemia HTN (hypertension) GERD (gastroesophageal reflux disease) DM type 1 (diabetes mellitus, type 1) Dementia Vitamin B12 deficiency CKD (chronic kidney disease), stage III CAD (coronary artery disease) COVID-19 Social History Social History Household Members: Significant Other Housing: House Do you presently have visiting nurse or other home services: No Unable to assess alcohol history related to: Unable to respond Alcohol intake: never Comment: transfer to [facility] for endoscopy Patient Tobacco Use Status: Never used Tobacco Smoked in Last 30 Days: No e-Cigarette/Vaping Use: Never Used Second Hand Smoke Exposure: No Use of substances other than those prescribed or required for medical reasons: No Advance Directives: Yes Advance Directives on File: Yes Advance Directives Date on File: 03/26/23 Nutrition Risks: No Nutritional Risk service: No Current occupational status: retired Physical Exam ED Vital Signs: Vital Signs - 24 hr 08/28/23 16:25 08/28/23 18:07 08/28/23 18:32 Temperature 98.3 F 97.9 F Pulse Rate 85 88 89 Respiratory Rate 16 18 Blood Pressure 166/76 H 208/110 H 210/89 H Pulse Oximetry 98 98 Oxygen Delivery Method Room Air Room Air 08/28/23 20:03 08/28/23 20:23 08/28/23 21:43 Temperature 97.4 F 97.4 F Pulse Rate 85 90 85 Respiratory Rate 16 15 20 Blood Pressure 157/89 H 171/90 H 157/75 H Pulse Oximetry 98 95 95 Oxygen Delivery Method Room Air Room Air Room Air BMI result Body Mass Index 18.8 Appearance: Alert. Oriented X2. No acute distress. Eyes: PERRLA, No Nystagmus ENT: Pharynx normal. Oral Mucosa moist Neck: Normal inspection. Neck supple. CVS: Normal heart rate and rhythm. Pulses normal. Respiratory: No respiratory distress. Equal air entry bilateral, no wheezing/rales/rhonchi Abdomen: Soft and nontender. Bowel sounds are present, no mass palpable, no CVA tenderness Skin: Skin warm and dry. Normal skin color. Normal skin turgor. Extremities: No lower extremity edema. No calf tenderness Neuro: Oriented X 2. No focal deficit, decreased leg movements Medications Administered Generic Name Dose Route Start Last Admin Trade Name Freq PRN Reason Stop Dose Admin Enoxaparin Sodium 40 mg 08/28/23 23:00 08/28/23 23:33 Enoxaparin Sodium 40 Mg/0.4 Ml Syringe SUBCUT 40 mg Q24H CHRISTOPH Administration Ceftriaxone Sodium 1 gm/ 50 mls @ 100 mls/hr 08/28/23 23:00 08/29/23 00:04 Sodium Chloride IV Infused Q24H CHRISTOPH Infusion Levetiracetam 500 mg 08/28/23 23:00 08/28/23 23:33 Levetiracetam 500 Mg Tablet PO 500 mg BID@0900,1700 CHRISTOPH Administration Sodium Chloride 3 ml 08/29/23 00:00 08/29/23 01:15 0.9 % Sodium Chloride Flush 3 Ml Syringe IVFLUSH 3 ml QSHIFT CHRISTOPH Administration Discontinued Medications Generic Name Dose Route Start Last Admin Trade Name Freq PRN Reason Stop Dose Admin Sodium Chloride 1,000 mls @ 999 mls/hr 08/28/23 17:03 08/28/23 18:41 Ns IV 08/28/23 18:03 Infused .Q1H1M ONE Infusion Insulin Glargine 3 unit 08/28/23 22:48 08/28/23 23:33 Insulin Glargine,Hum.Rec.Anlog 100 Unit/Ml 10 Ml Vial SUBCUT 08/28/23 22:49 3 unit ONCE ONE Administration Lisinopril 5 mg 08/28/23 18:11 08/28/23 18:41 Lisinopril 5 Mg Tablet PO 08/28/23 18:12 5 mg ONCE ONE Administration Protocol Medical Decision Making Medical Decision Making [facility] Narrative: Patient with UTI with significant weakness and confusion likely metabolic encephalopathy with UTI started on IV Rocephin admit patient for IV hydration further workup Differential Diagnosis Differential Diagnoses: The differential diagnosis associated with the presentation includes UTI/bacteremia/CVA/metabolic encephalopathy Admission/Observation Consideration of admission/observation: Escalation of care including admission/observation considered Consult Healthcare Provider Management of the patient was discussed with: Hospitalist Lab Data [facility] Lab Attestation statement: I reviewed the patient's lab results. 08/28/23 17:53 08/28/23 17:53 Labs: Lab Results 08/28/23 08/28/23 08/28/23 Range/Units 17:51 17:53 18:28 WBC 4.0 L (4.8-10.8) X10*3/uL RBC 3.30 L (4.20-5.50) X10*6/uL Hgb 10.7 L (12.0-16.0) g/dl Hct 31.7 L (37.0-47.0) % MCV 96.1 (80.0-98.0) fL MCH 32.4 (27.0-33.0) pg MCHC 33.8 (31.0-35.0) g/dl RDW 15.9 (11.0-16.0) % Plt Count 275 (160-400) X10*3/uL MPV 10.1 (9.4-12.3) fL Immature Gran % (Auto) 0.3 (0.0-0.4) % Neut % (Auto) 62.1 (45-73) % Lymph % (Auto) 19.4 L (20-40) % Butts % (Auto) 14.9 H (2-11) % Eos % (Auto) 2.5 (0-4) % Baso % (Auto) 0.8 (0-2) % Lymph # (Auto) 0.8 L (1.2-4.9) X10*3/uL Butts # (Auto) 0.6 (0.1-1.2) X10*3/uL Eos # (Auto) 0.1 (0.0-0.4) X10*3/uL Baso # (Auto) 0.0 (0.0-0.2) X10*3/uL Abs Immat Gran (auto) 0.01 (0.00-0.03) X10*3/uL Absolute Neuts (auto) 2.5 (2.0-8.3) x10*3/uL Absolute Nucleated RBC 0.000 (0.0-0.012) X10*3/uL Nucleated RBC % (auto) 0.0 (0.0-0.2) /100WBC Sodium 131 L (135-145) mmol/L Potassium 4.4 (3.3-5.1) mmol/L Chloride 99 (96-108) mmol/L Carbon Dioxide 26 (22-29) mmol/L Anion Gap 10 L (12-20) BUN 23 H (9-16) mg/dL Creatinine 1.03 (0.5-1.4) mg/dL Estim Creat Clear Calc 41.5 Estimated GFR 52 Random Glucose 225 H (60-115) mg/dL Osmolality 291 (281-305) mosm/kg Lactic Acid 1.2 (0.5-2.0) mmol/L Calcium 8.8 (8.4-10.2) mg/dL Total Bilirubin 0.3 (0.0-1.0) mg/dL AST 9 (5-31) U/L ALT 7 (0-31) U/L Alkaline Phosphatase 90 (39-117) U/L Total Protein 6.0 L (6.5-8.0) g/dL Albumin 3.7 (3.5-5.0) g/dL Urine Color Yellow Urine Appearance Cloudy Urine pH 7.0 (5.0-9.0) Ur Specific [place] 1.010 (1.005-1.025) Urine Protein 30 (1+) H (Neg-Trace) mg/dL Urine Glucose (UA) 100 H (Negative) mg/dL Urine Ketones Negative (Negative) mg/dL Urine Blood Negative (Negative) Urine Nitrite Negative (Negative) Ur Leukocyte Esterase Small (1+) H (Negative) Urine RBC 0-2 (0-2) /HPF Urine WBC 21-50 H (0-5) /HPF Ur Squamous Epith Cells 0-2 (0-2) /HPF Urine Bacteria 4+ (None Seen) Hyaline Casts 0-2 (0-2) /LPF Urine Osmolality 312 L (373-1093) mosm/kg Ur Random Sodium mmol/L 08/28/23 Range/Units 18:29 WBC (4.8-10.8) X10*3/uL RBC (4.20-5.50) X10*6/uL Hgb (12.0-16.0) g/dl Hct (37.0-47.0) % MCV (80.0-98.0) fL MCH (27.0-33.0) pg MCHC (31.0-35.0) g/dl RDW (11.0-16.0) % Plt Count (160-400) X10*3/uL MPV (9.4-12.3) fL Immature Gran % (Auto) (0.0-0.4) % Neut % (Auto) (45-73) % Lymph % (Auto) (20-40) % Butts % (Auto) (2-11) % Eos % (Auto) (0-4) % Baso % (Auto) (0-2) % Lymph # (Auto) (1.2-4.9) X10*3/uL Butts # (Auto) (0.1-1.2) X10*3/uL Eos # (Auto) (0.0-0.4) X10*3/uL Baso # (Auto) (0.0-0.2) X10*3/uL Abs Immat Gran (auto) (0.00-0.03) X10*3/uL Absolute Neuts (auto) (2.0-8.3) x10*3/uL Absolute Nucleated RBC (0.0-0.012) X10*3/uL Nucleated RBC % (auto) (0.0-0.2) /100WBC Sodium (135-145) mmol/L Potassium (3.3-5.1) mmol/L Chloride (96-108) mmol/L Carbon Dioxide (22-29) mmol/L Anion Gap (12-20) BUN (9-16) mg/dL Creatinine (0.5-1.4) mg/dL Estim Creat Clear Calc Estimated GFR Random Glucose (60-115) mg/dL Osmolality (281-305) mosm/kg Lactic Acid (0.5-2.0) mmol/L Calcium (8.4-10.2) mg/dL Total Bilirubin (0.0-1.0) mg/dL AST (5-31) U/L ALT (0-31) U/L Alkaline Phosphatase (39-117) U/L Total Protein (6.5-8.0) g/dL Albumin (3.5-5.0) g/dL Urine Color Urine Appearance Urine pH (5.0-9.0) Ur Specific [place] (1.005-1.025) Urine Protein (Neg-Trace) mg/dL Urine Glucose (UA) (Negative) mg/dL Urine Ketones (Negative) mg/dL Urine Blood (Negative) Urine Nitrite (Negative) Ur Leukocyte Esterase (Negative) Urine RBC (0-2) /HPF Urine WBC (0-5) /HPF Ur Squamous Epith Cells (0-2) /HPF Urine Bacteria (None Seen) Hyaline Casts (0-2) /LPF Urine Osmolality (373-1093) mosm/kg Ur Random Sodium 71.0 mmol/L Discharge Plan Discharge Clinical Impression: Urinary tract infection, Altered mental status Patient Disposition: Admitted As Inpatient
--- NOTE | 2023-08-28 16:44 | ECG_ITS ---
Test Reason : UTI Blood Pressure : / mmHG Vent. Rate : 087 BPM Atrial Rate : 087 BPM P-R Int : 134 ms QRS Dur : 090 ms QT Int : 388 ms P-R-T Axes : 039 075 076 degrees QTc Int : 466 ms Normal sinus rhythm Nonspecific ST abnormality Abnormal ECG When compared with ECG of 12-APR-2023 08:30, No significant change was found Referred By: Yossi Zaidi Electronically Signed By:Acosta Meehan
[2023-08-28] MEDS: 0.9 % Sodium Chloride 1,000 ML 999 ML IV (17:46)
[2023-08-28 18:00] LABS: MANUAL DIFF FLAG NO
[2023-08-28 18:03] LABS: Basophils Percent Auto 0.8 % (0-2); Eosinophils Absolute Auto 0.1 X10*3/uL (0.0-0.4); Eosinophils Percent Auto 2.5 % (0-4); Hematocrit 31.7 % (37.0-47.0); Hemoglobin 10.7 g/dl (12.0-16.0); Imm Gran Abs Auto 0.01 X10*3/uL (0.00-0.03); Imm Gran Pct Auto 0.3 % (0.0-0.4); Lymphocytes Absolute Auto 0.8 X10*3/uL (1.2-4.9); Lymphocytes Percent Auto 19.4 % (20-40); Mean Corpuscular HGB Conc 33.8 g/dl (31.0-35.0); Mean Corpuscular Hemoglobin 32.4 pg (27.0-33.0); Mean Corpuscular Volume 96.1 fL (80.0-98.0); Mean Platelet Volume 10.1 fL (9.4-12.3); Monocytes Absolute Auto 0.6 X10*3/uL (0.1-1.2); Monocytes Percent Auto 14.9 % (2-11); Neutrophils Absolute Auto 2.5 x10*3/uL (2.0-8.3); Neutrophils Percent Auto 62.1 % (45-73); Platelet Count 275 X10*3/uL (160-400); Red Cell Distribution Width 15.9 % (11.0-16.0)
--- NOTE | 2023-08-28 18:08 | MHC.EDTECH ---
Patient biba by ems from home ,eklg taken and was read by Provider ,blood sets of blood culture drawn including lactic acid all sent to lab ,Patient was assisted to change into hospital attire ,Call joshi within Pt reach ,Pt at bedside .
[2023-08-28 18:15] LABS: Lactic Acid 1.2 mmol/L (0.5-2.0)
[2023-08-28 18:19] LABS: Alanine Aminotransferase 7 U/L (0-31); Albumin Level 3.7 g/dL (3.5-5.0); Alkaline Phosphatase 90 U/L (39-117); Anion Gap 10 (12-20); Aspartate Amino Transferase 9 U/L (5-31); Bilirubin Total 0.3 mg/dL (0.0-1.0); Blood Urea Nitrogen 23 mg/dL (9-16); Calcium 8.8 mg/dL (8.4-10.2); Carbon Dioxide 26 mmol/L (22-29); Chloride 99 mmol/L (96-108); Creatinine Clr Calc Pharmacy 41.5; Estimated Glomerular Filt Rate 52; Glucose Random 225 mg/dL (60-115); Potassium 4.4 mmol/L (3.3-5.1); Sodium 131 mmol/L (135-145)
[2023-08-28 18:38] LABS: Osmolality, Serum 291 mosm/kg (281-305)
--- NOTE | 2023-08-28 18:40 | MHC.EDTECH ---
Patient was assisted unto bedpan ,urine sample collected and sent to lab ,Patient had an incontinent episode of urine ,care given and bedding change ,Pure wick in Place .
[2023-08-28] MEDS: lisinopriL 5 MG TABLET PO (18:41)
[2023-08-28 19:11] LABS: Appearance Urine Cloudy; Color Urine Yellow; Glucose Urine UA 100 mg/dL (Negative); Leukocyte Esterase Urine Small (1+) (Negative); Nitrite Urine Negative (Negative); UMIC TRIGGER UACC YES; Urine Blood Negative (Negative); Urine Ketones Negative (Negative); Urine Protein 30 (1+) mg/dL (Neg-Trace)
[2023-08-28 19:34] LABS: Osmolality Urine 312 mosm/kg (373-1093)
--- NOTE | 2023-08-28 19:58 | PC.NURSE ---
this rn assumed care of pt. pt resting in stretcher comfortably, currently denies pain at this time. pt at bedside. vss.
[2023-08-28 20:08] LABS: Bacteria Urine 4+ (None Seen); Hyaline Casts Urine 0-2 /LPF (0-2); RBC Urine 0-2 /HPF (0-2); Squamous Epithelial Cell Urine 0-2 /HPF (0-2); UACC Culture Trigger YES; WBC Urine 21-50 /HPF (0-5)
--- NOTE | 2023-08-28 20:52 | PHA.MEDREC ---
Pharmacy Consult ? Medication Reconciliation Pharmacy has completed the medication reconciliation. Patient's had list from [facility]. He also reiterate the importance of give Lantus 6 units at 2100 every night. Patient has 2 of her 3 dose of Fosfomycin and was previous on cefpodixime, which patient's report does not work. Sliding Scale Insulin: - Breakfast: 4 units - Lunch: if BS < 150 give 3 unit and if BS > 150 give 4 units plus the sliding scale - Dinner: If BS <150 give nothing and if BS > 150 give 2 units plus the sliding Scale - Sliding Scale: BS 200-249 give 1 units, BS 250-299 give 2 units, BS 300-349 give 3 untis, BS 350-399 give 4 units, BS > 400 give 5 units Ana Urbina, PharmD
--- NOTE | 2023-08-28 21:16 | P.HPHOSP_ITS ---
History of Present Illness Date of Service: 08/28/23 Attending physician on admission: Venancio Jimenes Chief Complaint: Altered mental status Pt is a 78-year-old female with a PMH significant for?CAD, CKD, vascular dementia, type 1 diabetes, GERD, HTN, HLD, hypothyroidism, POTS, recurrent UTI, and chronically wheelchair-bound who presents to the ED with?for increased confusion and weakness, and low sodium as reported by PCP. Patient has vascular dementia at baseline and not oriented to situation and states she does not know why she is here. HPI instead taken from chart and provider review, as well as who is at bedside. states that patient has a long history of recurrent UTIs; apparently has been treated with at least 8 different antibiotics in the past 9 months. Most recently she was treated with cefpodoxime on 08/14 in then started on methenamine on 08/20. On 08/23 patient began experiencing polyuria and exhibiting increased confusion, disorientation, and being ?unreasonably nervous?. Confusion apparently waxed and waned and called PCP on Sunday 08/26 and she was sent in for lab work. At 03:15 this morning awoke to find that patient appeared increasingly confused, and had urinated all over the floor and bed. Patient has also been increasingly weak and unable to transfer from her wheelchair to the car. states he had already made his choice to come to the ED today, but was further prompted by the lab work that showed low sodium. Patient herself has no acute medical complaints. Denies chest pain/pressure, palpitations. No shortness of breath. Denies headache. No fever, chills, nausea, vomiting, abdominal pain. Denies polyuria, dysuria. In the ED pt was hypertensive up to 210/89, otherwise vitals WNL. Labs were significant for pancytopenia with WBC 4.0 and H&H 10.7/31.7 (near baseline), sodium 131, BUN 23, creatinine 1.03. Urine positive for UTI. EKG demonstrated normal sinus rhythm without evidence of significant ST elevations or depressions. Pt was treated with IVF and lisinopril. Pt will be admitted to the hospital for treatment and further evaluation of acute metabolic encephalopathy in the setting of UTI. Review of Systems 2 Review of Systems: Unable to obtain due to patient's mentation PMFSH Medical History Esophageal dilatation PPD positive Hyperkalemia Glaucoma Retinopathy QT prolongation POTS (postural orthostatic tachycardia syndrome) Orthostatic hypotension Neuropathy Hypothyroid Hypercholesterolemia HTN (hypertension) GERD (gastroesophageal reflux disease) DM type 1 (diabetes mellitus, type 1) Dementia Vitamin B12 deficiency CKD (chronic kidney disease), stage III CAD (coronary artery disease) COVID-19 Social History Household Members: Significant Other Housing: House Do you presently have visiting nurse or other home services: No Unable to assess alcohol history related to: Unable to respond Alcohol intake: never Comment: transfer to [facility] for endoscopy Patient Tobacco Use Status: Never used Tobacco Smoked in Last 30 Days: No e-Cigarette/Vaping Use: Never Used Second Hand Smoke Exposure: No Use of substances other than those prescribed or required for medical reasons: No Advance Directives: Yes Advance Directives on File: Yes Advance Directives Date on File: 03/26/23 service: No Current occupational status: retired Meds Allergies Allergy/AdvReac Type Severity Reaction Status Date / Time Sulfa (Sulfonamide Allergy Severe RASH/HIVES, Verified 08/28/23 16:33 Antibiotics) hives [SULFA (SULFONAMIDE ANTIBIOTICS)] insulin aspart Allergy Unknown HIVES Verified 08/28/23 16:33 [From NOVOLOG U-100 INSULIN ASPART] levofloxacin [From LEVAQUIN] AdvReac Intermediate BLOOD Verified 08/28/23 16:33 SUGAR DROPS milk [MILK] AdvReac Mild NAUSEA Verified 08/28/23 16:33 Home Medications Medication Instructions Recorded Confirmed Last Taken Type Lactobacillus rhamnosus GG 10 1 cap PO DAILY 10/14/21 08/28/23 08/28/23 History billion cell capsule (Culturelle) cholecalciferol (vitamin D3) 125 125 mcg PO DAILY@1700 10/14/21 08/28/23 08/28/23 History mcg (5,000 unit) tablet (Vitamin D3) cyanocobalamin (vitamin B-12) 500 500 mcg PO DAILY 10/14/21 08/28/23 08/28/23 History mcg tablet insulin lispro 100 unit/mL 0 - 2 unit subcut DAILY@1730 10/14/21 08/28/23 08/27/23 History subcutaneous cartridge (Humalog U-100 Insulin) insulin lispro 100 unit/mL 3 - 4 unit subcut DAILY@1130 10/14/21 08/28/23 08/28/23 History subcutaneous cartridge (Humalog U-100 Insulin) insulin lispro 100 unit/mL 4 unit subcut DAILY 10/14/21 08/28/23 08/28/23 History subcutaneous cartridge (Humalog U-100 Insulin) methenamine hippurate 1 gram tablet 1 g PO BID@0900,1700 10/14/21 08/28/23 08/28/23 History simvastatin 20 mg tablet 20 mg PO BEDTIME 10/14/21 08/28/23 08/27/23 History sodium chloride 1 gram tablet 2 tab PO BID@0900,1700 01/20/22 08/28/23 08/28/23 History insulin lispro 100 unit/mL 1 sliding scale dose subcut TIDAC 03/12/22 08/28/23 08/28/23 History subcutaneous solution (Humalog U-100 Insulin) omeprazole magnesium 10 mg oral 40 mg PO DAILY 03/12/22 08/28/23 08/28/23 History suspension,delayed release ascorbic acid (vitamin C) 500 mg 500 mg PO BID@0900,1700 03/25/23 08/28/23 08/28/23 History tablet cranberry fruit 450 mg tablet 450 mg PO DAILY 03/25/23 08/28/23 08/28/23 History estradiol 0.01% (0.1 mg/gram) 0.5 appful vaginal MOWEFR 03/25/23 08/28/23 04/10/23 History vaginal cream (Estrace) lisinopril 5 mg tablet 5 mg PO DAILY 03/25/23 08/28/23 08/28/23 History ferrous fumarate 324 mg (106 mg 324 mg PO DAILY 08/28/23 08/28/23 08/28/23 History iron) tablet fosfomycin tromethamine 3 gram 1 packet PO Q3D 08/28/23 08/28/23 08/26/23 History oral packet insulin glargine-yfgn 100 unit/mL 6 unit subcut BEDTIME 08/28/23 08/28/23 08/27/23 History subcutaneous solution levetiracetam 500 mg tablet 500 mg PO BID@0900,1700 08/28/23 08/28/23 08/28/23 History (Keppra) menthol 0.44 %-zinc oxide 20.6 % 1 appl topical BID PRN Skin 08/28/23 08/28/23 Unknown History topical ointment (Calmoseptine) Irritation Physical Exam 2 Vital Signs and Narrative: Vital Signs: Last Vital Signs Temp 97.4 F 08/28/23 20:23 Pulse 90 08/28/23 20:23 Resp 15 08/28/23 20:23 BP 171/90 H 08/28/23 20:23 Pulse Ox 95 08/28/23 20:23 O2 Del Method Room Air 08/28/23 20:23 BMI result Body Mass Index 18.8 Constitutional: Alert, pleasantly confused, in no acute distress. Mental Status: Oriented to person and place, not to time or situation. Eyes: Pupils are equal, round, and reactive to light. Ear, Nose, and Throat: Oropharynx clear, mucous membranes moist. Ears and nose without deformities. Trachea midline. Respiratory: Clear to auscultation bilaterally. No wheezing, rales, or rhonchi. Cardiovascular: S1, S2 regular. No murmurs, rubs, or gallops. Gastrointestinal: Abdomen soft, non-tender, non-distended. Normal bowel sounds. Neurologic: Cranial nerves II-XII are grossly intact bilaterally. No focal neurological deficits. Moves all extremities spontaneously. Skin: Warm, dry. Musculoskeletal: No cyanosis or clubbing. Extremities: Non pitting bilateral lower leg edema. Psychiatric: Pleasantly confused. Results Labs 08/28/23 17:53 08/28/23 17:53 Labs: Laboratory Results - last 24 hr 08/28/23 08/28/23 08/28/23 17:51 17:53 18:28 MCV 96.1 MCH 32.4 MCHC 33.8 RDW 15.9 Plt Count 275 MPV 10.1 Immature Gran % (Auto) 0.3 Neut % (Auto) 62.1 Lymph % (Auto) 19.4 L [place] % (Auto) 14.9 H Eos % (Auto) 2.5 Baso % (Auto) 0.8 Lymph # (Auto) 0.8 L [place] # (Auto) 0.6 Eos # (Auto) 0.1 Baso # (Auto) 0.0 Abs Immat Gran (auto) 0.01 Absolute Neuts (auto) 2.5 Absolute Nucleated RBC 0.000 Nucleated RBC % (auto) 0.0 Anion Gap 10 L Estim Creat Clear Calc 41.5 Estimated GFR 52 Random Glucose 225 H Osmolality 291 Lactic Acid 1.2 Calcium 8.8 Total Bilirubin 0.3 AST 9 ALT 7 Alkaline Phosphatase 90 Total Protein 6.0 L Albumin 3.7 Urine Color Yellow Urine Appearance Cloudy Urine pH 7.0 Ur Specific [place] 1.010 Urine Protein 30 (1+) H Urine Glucose (UA) 100 H Urine Ketones Negative Urine Blood Negative Urine Nitrite Negative Ur Leukocyte Esterase Small (1+) H Urine RBC 0-2 Urine WBC 21-50 H Ur Squamous Epith Cells 0-2 Urine Bacteria 4+ Hyaline Casts 0-2 Urine Osmolality 312 L Ur Random Sodium 08/28/23 18:29 MCV MCH MCHC RDW Plt Count MPV Immature Gran % (Auto) Neut % (Auto) Lymph % (Auto) [place] % (Auto) Eos % (Auto) Baso % (Auto) Lymph # (Auto) [place] # (Auto) Eos # (Auto) Baso # (Auto) Abs Immat Gran (auto) Absolute Neuts (auto) Absolute Nucleated RBC Nucleated RBC % (auto) Anion Gap Estim Creat Clear Calc Estimated GFR Random Glucose Osmolality Lactic Acid Calcium Total Bilirubin AST ALT Alkaline Phosphatase Total Protein Albumin Urine Color Urine Appearance Urine pH Ur Specific [place] Urine Protein Urine Glucose (UA) Urine Ketones Urine Blood Urine Nitrite Ur Leukocyte Esterase Urine RBC Urine WBC Ur Squamous Epith Cells Urine Bacteria Hyaline Casts Urine Osmolality Ur Random Sodium 71.0 Assessment and Plan (1) Urinary tract infection: Status: Acute (2) Acute metabolic encephalopathy: Status: Acute (3) Hyponatremia: Status: Resolved Plan Pt is a 78-year-old female with a PMH significant for?CAD, CKD, vascular dementia, type 1 diabetes, GERD, HTN, HLD, hypothyroidism, POTS, recurrent UTI, and chronically wheelchair-bound who presents to the ED with?for increased confusion and weakness, and low sodium as reported by PCP. Pt will be admitted to the hospital for treatment and further evaluation of acute metabolic encephalopathy in the setting of UTI. Acute metabolic encephalopathy in the setting of UTI Patient with intermittent altered mental status, confusion, weakness since last 08/23/2023, worse last night and this morning states she has had recurrent UTIs for past 9+ months; been on 8 different antibiotics during this time Treated with Cefpodoxime on 08/14 and placed on methenamine since 08/20 Will treat with ceftriaxone, started 08/28/2023 ID consult Follow cultures Monitor mentation Hyponatremia Acute on chronic Sodium 131 at time of presentation, around baseline Patient given IVF in ED Continue home sodium chloride Consider nephrology consult Follow BMP Type 1 diabetes Will keep modified lispro meal dosing SSI, Lantus Diabetic diet Diet Pureed diet, thin liquids Glucerna supplement t.i.d. Hx of seizure Continue Keppra GERD PPI HLD Continue statin HTN Continue lisinopril Full Code Attending:?Dr. Jimenes DVT Prophylaxis: Lovenox Pt will require a hospitalization of at least two nights for treatment of?acute metabolic encephalopathy in the setting of UTI with IV antibiotics and close monitoring. Quality Stroke Does the patient have a stroke diagnosis?: No VTE Prior VTE?: No VTE Risk Level:: Medical - moderate - high VTE Device Contraindication: Treatment Not Indicated VTE Drug Contraindication: N/A - Med Ordered
[2023-08-28] MEDS: levETIRAcetam 500 MG TABLET PO (23:33)
[2023-08-28] MEDS: Insulin Glargine,Hum.rec.anlog 100 UNIT/ML 10 ML VIAL SUBCUT (23:33)
[2023-08-28] MEDS: Enoxaparin Sodium 40 MG/0.4 ML SYRINGE SUBCUT (23:33)
[2023-08-28] MEDS: cefTRIAXone sodium 1 GM in 0.9 % Sodium Chloride 50 ML IV (23:34)
--- NOTE | 2023-08-28 23:38 | PC.NURSE ---
pt medicated per nov. pt tolerates medications well with water.
--- NOTE | 2023-08-28 23:38 | MHC.EDTECH ---
Rounding done ,vitals taken ,blood sugar check ,Patient comfortable ,had some water to drink ,no apparent distress noted will continue to monitor .
[2023-08-28 23:51] LABS: Glucose, Whole Blood 183 mg/dL (60-115)
[2023-08-29] VITALS (8 sets, daily range): BP systolic 136–163; BP diastolic 64–88; PULSE 78–92; RESP 16–20; TEMP 36.1–36.8; O2SAT 94–98; BMI 18.9; BMI 22.7
[2023-08-29] MEDS: 0.9 % Sodium Chloride Flush 3 ML SYRINGE IVFLUSH ×4 (01:15→21:42)
--- NOTE | 2023-08-29 02:20 | PC.NURSE ---
admitted to room.resting comf.oriented to unit and plan of care.bed alarm for safety, called per his wishes and updated.
[2023-08-29 06:11] LABS: Anion Gap 11 (12-20); Blood Urea Nitrogen 21 mg/dL (9-16); Calcium 8.6 mg/dL (8.4-10.2); Carbon Dioxide 26 mmol/L (22-29); Chloride 102 mmol/L (96-108); Creatinine Clr Calc Pharmacy 56.7; Estimated Glomerular Filt Rate > 60; Glucose Random 164 mg/dL (60-115); Magnesium 1.9 mg/dL (1.6-2.6); Potassium 3.9 mmol/L (3.3-5.1); Sodium 135 mmol/L (135-145)
[2023-08-29 07:20] LABS: Glucose, Whole Blood 161 mg/dL (60-115)
[2023-08-29] MEDS: Insulin Lispro 100 UNIT/ML 3 ML VIAL SUBCUT ×5 (08:02→21:40)
[2023-08-29] MEDS: Ferrous Sulfate 324 MG TABLET.DR PO (08:03)
[2023-08-29] MEDS: Ascorbic Acid 500 MG TABLET PO ×2 (08:03→16:24)
[2023-08-29] MEDS: levETIRAcetam 500 MG TABLET PO ×2 (08:03→16:24)
[2023-08-29] MEDS: lisinopriL 5 MG TABLET PO (08:03)
[2023-08-29] MEDS: Cyanocobalamin (Vitamin B-12) 500 MCG TABLET PO (08:03)
[2023-08-29] MEDS: Omeprazole 40 MG CAPSULE.DR PO (08:03)
[2023-08-29] MEDS: Sodium Chloride Tab 1 GM TABLET 2 GM PO ×2 (08:04→16:24)
--- NOTE | 2023-08-29 08:22 | MHC.CM.PN ---
CM met with Patient at bedside and she stated that she is forgetful and requested that CM call her . CM spoke with /HCP/Angel @ [phone] and addressed IMM with him(original will be mailed certified letter to Angel and a copy has been placed on the chart).Patient lives in a house with her and she uses a w/c to assist with mobility. Patient is part of the [employer] program and home/resume said services is the goal. CM has initiated and will follow for dc planning. PCP is Dr. Bob Stephenson.
--- NOTE | 2023-08-29 10:46 | P.PNIM_ITS ---
Subjective Subjective Date of Service: 08/29/23 Interval History: Seen and evaluated alert and interactive but overall confused not sure how did she end up in hospital denies fever or chills Review of Systems Review of Systems: Yes all other systems are reviewed and are negative Physical Exam 2 Vital Signs: Vital Signs: Last Vital Signs Temp 97.1 F 08/29/23 07:08 Pulse 92 08/29/23 07:08 Resp 20 08/29/23 07:08 BP 163/85 H 08/29/23 07:08 Pulse Ox 95 08/29/23 07:08 O2 Del Method Room Air 08/29/23 07:08 BMI result Body Mass Index 18.9 Const: Other: Constitutional : Awake, interactive, not in distress Neck : Normal inspection, Supple Cardiovascular : RRR, no JVP, no lower extremity edema Respiratory : good bilateral air entry, no crackles, wheezes or rhonchi Gastrointestinal: soft, lax, Normal bowel sounds, Non tender Skin : Warm, Dry Neurological : Alert & oriented to self only, No focal deficit Objective Data Active Medications Acetaminophen (Acetaminophen 325 Mg Tablet) 650 mg PO Q6H PRN PRN Reason: Pain, Mild (Pain Scale 1-3) Ascorbic Acid (Ascorbic Acid 500 Mg Tablet) 500 mg PO BID@0900,1700 [facility] Last Admin: 08/29/23 08:03 Dose: 500 mg Documented By: EAGLE Atorvastatin Calcium (Atorvastatin Calcium 10 Mg Tablet) 10 mg PO BEDTIME [facility] Benzonatate (Benzonatate 100 Mg Capsule) 100 mg PO TID PRN PRN Reason: Cough Cyanocobalamin (Cyanocobalamin (Vitamin B-12) 500 Mcg Tablet) 500 mcg PO DAILY [facility] Last Admin: 08/29/23 08:03 Dose: 500 mcg Documented By: EAGLE Dextrose (Dextrose 50 % 25 Gm/50 Ml Syringe) 25 gm IVPUSH Q15M PRN; Protocol PRN Reason: per Hypoglycemia Standing Ord. Docusate Sodium (Docusate Sodium 100 Mg Capsule) 100 mg PO DAILY PRN PRN Reason: Constipation Enoxaparin Sodium (Enoxaparin Sodium 40 Mg/0.4 Ml Syringe) 40 mg SUBCUT Q24H [facility] [place] Last Admin: 08/28/23 23:33 Dose: 40 mg Documented By: TIA Ferrous Sulfate (Ferrous Sulfate 324 Mg Tablet.) 324 mg PO DAILY [facility] Last Admin: 08/29/23 08:03 Dose: 324 mg Documented By: EAGLE Glucose (Glucose Gel 15 Gm Gel..Gram.) 15 gm PO Q15M PRN; Protocol PRN Reason: per Hypoglycemia Standing Ord. Ceftriaxone Sodium 1 gm/ (Sodium Chloride) 50 mls @ 100 mls/hr IV Q24H [facility] [place] Last Infusion: 08/29/23 00:04 Dose: Infused Documented By: TIA Insulin Glargine (Insulin Glargine,Hum.Rec.Anlog 100 Unit/Ml 10 Ml Vial) 4 unit SUBCUT BEDTIME [facility] Insulin Human Lispro (Insulin Lispro 100 Unit/Ml 3 Ml Vial) 0 unit SUBCUT QIDACHS [facility]; Protocol Last Admin: 08/29/23 08:02 Dose: 2 unit Documented By: EAGLE Insulin Human Lispro (Insulin Lispro 100 Unit/Ml 3 Ml Vial) 0 - 2 unit SUBCUT DAILY@1730 [facility] [place] Insulin Human Lispro (Insulin Lispro 100 Unit/Ml 3 Ml Vial) 3 - 4 unit SUBCUT DAILY@1130 [facility] Insulin Human Lispro (Insulin Lispro 100 Unit/Ml 3 Ml Vial) 4 unit SUBCUT DAILY [facility] Last Admin: 08/29/23 08:04 Dose: Not Given Documented By: EAGLE Non-Admin Reason: Physician Approved Levetiracetam (Levetiracetam 500 Mg Tablet) 500 mg PO BID@0900,1700 [facility] Last Admin: 08/29/23 08:03 Dose: 500 mg Documented By: EAGLE Lisinopril (Lisinopril 5 Mg Tablet) 5 mg PO DAILY [facility] [place]; Protocol Last Admin: 08/29/23 08:03 Dose: 5 mg Documented By: EAGLE Melatonin (Melatonin 3 Mg Tablet) 6 mg PO BEDTIME PRN PRN Reason: Insomnia Omeprazole (Omeprazole 40 Mg Capsule.) 40 mg PO DAILY [facility] Last Admin: 08/29/23 08:03 Dose: 40 mg Documented By: EAGLE Sodium Chloride (0.9 % Sodium Chloride Flush 3 Ml Syringe) 3 ml IVFLUSH QSHIFT [facility] Last Admin: 08/29/23 08:03 Dose: 3 ml Documented By: EAGLE Sodium Chloride (Sodium Chloride Tab 1 Gm Tablet) 2 gm PO BID@0900,1700 [facility] Last Admin: 08/29/23 08:04 Dose: 2 gm Documented By: EAGLE Vitamin D (Cholecalciferol (Vitamin D3) 25 Mcg Tablet) 125 mcg PO DAILY@1700 [facility] Labs 08/28/23 17:53 08/29/23 05:44 Labs: Laboratory Results - last 24 hr 08/28/23 08/28/23 08/28/23 17:51 17:53 18:28 MCV 96.1 MCH 32.4 MCHC 33.8 RDW 15.9 Plt Count 275 MPV 10.1 Immature Gran % (Auto) 0.3 Neut % (Auto) 62.1 Lymph % (Auto) 19.4 L [place] % (Auto) 14.9 H Eos % (Auto) 2.5 Baso % (Auto) 0.8 Lymph # (Auto) 0.8 L [place] # (Auto) 0.6 Eos # (Auto) 0.1 Baso # (Auto) 0.0 Abs Immat Gran (auto) 0.01 Absolute Neuts (auto) 2.5 Absolute Nucleated RBC 0.000 Nucleated RBC % (auto) 0.0 Hold Purple Top Anion Gap 10 L Estim Creat Clear Calc 41.5 Estimated GFR 52 POC Glucose Random Glucose 225 H Osmolality 291 Lactic Acid 1.2 Calcium 8.8 Magnesium Total Bilirubin 0.3 AST 9 ALT 7 Alkaline Phosphatase 90 Total Protein 6.0 L Albumin 3.7 Urine Color Yellow Urine Appearance Cloudy Urine pH 7.0 Ur Specific Castaner 1.010 Urine Protein 30 (1+) H Urine Glucose (UA) 100 H Urine Ketones Negative Urine Blood Negative Urine Nitrite Negative Ur Leukocyte Esterase Small (1+) H Urine RBC 0-2 Urine WBC 21-50 H Ur Squamous Epith Cells 0-2 Urine Bacteria 4+ Hyaline Casts 0-2 Urine Osmolality 312 L Ur Random Sodium 08/28/23 08/28/23 08/29/23 18:29 23:32 05:44 MCV MCH MCHC RDW Plt Count MPV Immature Gran % (Auto) Neut % (Auto) Lymph % (Auto) Cata[place]oula % (Auto) Eos % (Auto) Baso % (Auto) Lymph # (Auto) [place]oula # (Auto) Eos # (Auto) Baso # (Auto) Abs Immat Gran (auto) Absolute Neuts (auto) Absolute Nucleated RBC Nucleated RBC % (auto) Hold Purple Top SEE NOTE Anion Gap 11 L Estim Creat Clear Calc 56.7 Estimated GFR > 60 POC Glucose 183 H Random Glucose 164 H Osmolality Lactic Acid Calcium 8.6 Magnesium 1.9 Total Bilirubin AST ALT Alkaline Phosphatase Total Protein Albumin Urine Color Urine Appearance Urine pH Ur Specific Cast[place]er Urine Protein Urine Glucose (UA) Urine Ketones Urine Blood Urine Nitrite Ur Leukocyte Esterase Urine RBC Urine WBC Ur Squamous Epith Cells Urine Bacteria Hyaline Casts Urine Osmolality Ur Random Sodium 71.0 08/29/23 07:06 MCV MCH MCHC RDW Plt Count MPV Immature Gran % (Auto) Neut % (Auto) Lymph % (Auto) C[place]oula % (Auto) Eos % (Auto) Baso % (Auto) Lymph # (Auto) C[place]oula # (Auto) Eos # (Auto) Baso # (Auto) Abs Immat Gran (auto) Absolute Neuts (auto) Absolute Nucleated RBC Nucleated RBC % (auto) Hold Purple Top Anion Gap Estim Creat Clear Calc Estimated GFR POC Glucose 161 H Random Glucose Osmolality Lactic Acid Calcium Magnesium Total Bilirubin AST ALT Alkaline Phosphatase Total Protein Albumin Urine Color Urine Appearance Urine pH Ur Specific Castaner Urine Protein Urine Glucose (UA) Urine Ketones Urine Blood Urine Nitrite Ur Leukocyte Esterase Urine RBC Urine WBC Ur Squamous Epith Cells Urine Bacteria Hyaline Casts Urine Osmolality Ur Random Sodium Assessment and Plan (1) Acute metabolic encephalopathy: Status: Acute (2) Urinary tract infection: Status: Acute Plan Pt is a 78-year-old female with a PMH significant for?CAD, CKD, vascular dementia, type 1 diabetes, GERD, HTN, HLD, hypothyroidism, POTS, recurrent UTI, and chronically wheelchair-bound who presents to the ED with?for increased confusion and weakness, and low sodium as reported by PCP. Pt will be admitted to the hospital for treatment and further evaluation of acute metabolic encephalopathy in the setting of UTI. Acute metabolic encephalopathy in the setting of UTI still worse than baseline Hx recurrent UTIs for past 9+ months; been on 8 different antibiotics during this time Continue Ceftriaxone, started 08/28/2023 ID consult Follow cultures Monitor mentation Hyponatremia, Acute on chronic resolved Continue home sodium chloride Follow BMP Type 1 diabetes keep modified lispro meal dosing SSI, Lantus Diabetic diet Diet Pureed diet, thin liquids Glucerna supplement t.i.d. Hx of seizure Continue Keppra GERD PPI HLD Continue statin HTN Continue lisinopril Full Code DVT Prophylaxis: Lovenox Pt will require a hospitalization of at least two nights for treatment of?acute metabolic encephalopathy in the setting of UTI with IV antibiotics and close monitoring. Quality Stroke Does the patient have a stroke diagnosis?: No VTE Prior VTE?: No VTE Risk Level:: Medical - moderate - high VTE Device Contraindication: Treatment Not Indicated VTE Drug Contraindication: N/A - Med Ordered
[2023-08-29 11:13] LABS: Glucose, Whole Blood 218 mg/dL (60-115)
[2023-08-29 16:21] LABS: Glucose, Whole Blood 159 mg/dL (60-115)
[2023-08-29] MEDS: Cholecalciferol (Vitamin D3) 25 MCG TABLET 125 MCG PO (16:25)
[2023-08-29 20:08] LABS: Glucose, Whole Blood 199 mg/dL (60-115)
[2023-08-29] MEDS: Enoxaparin Sodium 40 MG/0.4 ML SYRINGE SUBCUT (21:41)
[2023-08-29] MEDS: Atorvastatin Calcium 10 MG TABLET PO (21:41)
[2023-08-29] MEDS: Insulin Glargine,Hum.rec.anlog 100 UNIT/ML 10 ML VIAL SUBCUT (21:41)
[2023-08-29] MEDS: cefTRIAXone sodium 1 GM in 0.9 % Sodium Chloride 50 ML IV (21:42)
--- NOTE | 2023-08-29 22:20 | P.CNID_ITS ---
History of Present Illness Data of Consult Service Date: 08/29/23 Requesting physician: Chirag Thompson Primary Care Provider: Unknown Physician HPI Reason for consult: metabolic encephalopathy She presents with weakness and confusion worse over last day, She has no fever or WBC elevation but has low temperature reading. She has had pyuria in past and has now, Urine culture gram negative. Review of Systems 2 Review of Systems: Yes Unobtainable due to mental condition PMFSH Past Medical History Medical History Esophageal dilatation PPD positive Hyperkalemia Glaucoma Retinopathy QT prolongation POTS (postural orthostatic tachycardia syndrome) Orthostatic hypotension Neuropathy Hypothyroid Hypercholesterolemia HTN (hypertension) GERD (gastroesophageal reflux disease) DM type 1 (diabetes mellitus, type 1) Dementia Vitamin B12 deficiency CKD (chronic kidney disease), stage III CAD (coronary artery disease) COVID-19 Family History Family history: reviewed and not pertinent Social History Social History Household Members: Spouse Housing: House Do you presently have visiting nurse or other home services: No Unable to assess alcohol history related to: Unable to respond Alcohol intake: never Comment: transfer to [facility] for endoscopy Patient Tobacco Use Status: Never used Tobacco Smoked in Last 30 Days: No e-Cigarette/Vaping Use: Never Used Second Hand Smoke Exposure: No Use of substances other than those prescribed or required for medical reasons: No Currently Displaying Signs/Symptoms of Drug Intoxication Withdrawal: No Have you been hit, kicked, punched, or otherwise hurt by someone within the past year? If so, by whom?: No Do you feel safe in your current relationship?: Yes Is there a partner from a previous relationship who is making you feel unsafe now?: No Are you made to feel afraid or neglected: No Advance Directives: Yes Advance Directives on File: Yes Advance Directives Date on File: 03/26/23 Do you have thoughts of harming others: None Do you have a plan to hurt others: No Plan Recently lost weight without trying: No Eating poorly because of decreased appetite: No Nutrition Risks: No Nutritional Risk Patient : No Poor oral hygiene: No service: No Current occupational status: retired Meds Allergies Allergy/AdvReac Type Severity Reaction Status Date / Time Sulfa (Sulfonamide Allergy Severe RASH/HIVES, Verified 08/28/23 16:33 Antibiotics) hives [SULFA (SULFONAMIDE ANTIBIOTICS)] insulin aspart Allergy Unknown HIVES Verified 08/28/23 16:33 [From NOVOLOG U-100 INSULIN ASPART] levofloxacin [From LEVAQUIN] AdvReac Intermediate BLOOD Verified 08/28/23 16:33 SUGAR DROPS milk [MILK] AdvReac Mild NAUSEA Verified 08/28/23 16:33 Active Medications: Current Medications Acetaminophen (Acetaminophen 325 Mg Tablet) 650 mg PO Q6H PRN PRN Reason: Pain, Mild (Pain Scale 1-3) Ascorbic Acid (Ascorbic Acid 500 Mg Tablet) 500 mg PO BID@0900,1700 [facility] Last Admin: 08/29/23 16:24 Dose: 500 mg Atorvastatin Calcium (Atorvastatin Calcium 10 Mg Tablet) 10 mg PO BEDTIME [facility] Last Admin: 08/29/23 21:41 Dose: 10 mg Benzonatate (Benzonatate 100 Mg Capsule) 100 mg PO TID PRN PRN Reason: Cough Cyanocobalamin (Cyanocobalamin (Vitamin B-12) 500 Mcg Tablet) 500 mcg PO DAILY [facility] Last Admin: 08/29/23 08:03 Dose: 500 mcg Dextrose (Dextrose 50 % 25 Gm/50 Ml Syringe) 25 gm IVPUSH Q15M PRN; Protocol PRN Reason: per Hypoglycemia Standing Ord. Docusate Sodium (Docusate Sodium 100 Mg Capsule) 100 mg PO DAILY PRN PRN Reason: Constipation Enoxaparin Sodium (Enoxaparin Sodium 40 Mg/0.4 Ml Syringe) 40 mg SUBCUT Q24H [facility] Last Admin: 08/29/23 21:41 Dose: 40 mg Ferrous Sulfate (Ferrous Sulfate 324 Mg Tablet.Dr) 324 mg PO DAILY [facility] Last Admin: 08/29/23 08:03 Dose: 324 mg Glucose (Glucose Gel 15 Gm Gel..Gram.) 15 gm PO Q15M PRN; Protocol PRN Reason: per Hypoglycemia Standing Ord. Ceftriaxone Sodium 1 gm/ (Sodium Chloride) 50 mls @ 100 mls/hr IV Q24H [facility] Last Infusion: 08/29/23 22:13 Dose: Infused Insulin Glargine (Insulin Glargine,Hum.Rec.Anlog 100 Unit/Ml 10 Ml Vial) 4 unit SUBCUT BEDTIME [facility] Last Admin: 08/29/23 21:41 Dose: 4 unit Insulin Human Lispro (Insulin Lispro 100 Unit/Ml 3 Ml Vial) 0 unit SUBCUT QIDACHS [facility]; Protocol Last Admin: 08/29/23 21:40 Dose: 2 unit Insulin Human Lispro (Insulin Lispro 100 Unit/Ml 3 Ml Vial) 0 - 2 unit SUBCUT DAILY@1730 [facility] Last Admin: 08/29/23 16:33 Dose: Not Given Insulin Human Lispro (Insulin Lispro 100 Unit/Ml 3 Ml Vial) 3 - 4 unit SUBCUT DAILY@1130 [facility] Last Admin: 08/29/23 11:34 Dose: 4 unit Insulin Human Lispro (Insulin Lispro 100 Unit/Ml 3 Ml Vial) 4 unit SUBCUT DAILY [facility] Last Admin: 08/29/23 08:04 Dose: Not Given Levetiracetam (Levetiracetam 500 Mg Tablet) 500 mg PO BID@0900,1700 [facility] Last Admin: 08/29/23 16:24 Dose: 500 mg Lisinopril (Lisinopril 5 Mg Tablet) 5 mg PO DAILY [facility]; Protocol Last Admin: 08/29/23 08:03 Dose: 5 mg Melatonin (Melatonin 3 Mg Tablet) 6 mg PO BEDTIME PRN PRN Reason: Insomnia Omeprazole (Omeprazole 40 Mg Capsule.Dr) 40 mg PO DAILY [facility] Last Admin: 08/29/23 08:03 Dose: 40 mg Sodium Chloride (0.9 % Sodium Chloride Flush 3 Ml Syringe) [facility] Last Admin: 08/29/23 21:42 Dose: 3 ml Sodium Chloride (Sodium Chloride Tab 1 Gm Tablet) 2 gm PO BID@0900,1700 [facility] Last Admin: 08/29/23 16:24 Dose: 2 gm Vitamin D (Cholecalciferol (Vitamin D3) 25 Mcg Tablet) 125 mcg PO DAILY@1700 [facility] Last Admin: 08/29/23 16:25 Dose: 125 mcg Home Medications Medication Instructions Recorded Confirmed Last Taken Type Lactobacillus rhamnosus GG 10 1 cap PO DAILY 10/14/21 08/28/23 08/28/23 History billion cell capsule (Culturelle) cholecalciferol (vitamin D3) 125 125 mcg PO DAILY@1700 10/14/21 08/28/23 08/28/23 History mcg (5,000 unit) tablet (Vitamin D3) cyanocobalamin (vitamin B-12) 500 500 mcg PO DAILY 10/14/21 08/28/23 08/28/23 History mcg tablet insulin lispro 100 unit/mL 0 - 2 unit subcut DAILY@1730 10/14/21 08/28/23 08/27/23 History subcutaneous cartridge (Humalog U-100 Insulin) insulin lispro 100 unit/mL 3 - 4 unit subcut DAILY@1130 10/14/21 08/28/23 08/28/23 History subcutaneous cartridge (Humalog U-100 Insulin) insulin lispro 100 unit/mL 4 unit subcut DAILY 10/14/21 08/28/23 08/28/23 History subcutaneous cartridge (Humalog U-100 Insulin) methenamine hippurate 1 gram tablet 1 g PO BID@0900,1700 10/14/21 08/28/23 08/28/23 History simvastatin 20 mg tablet 20 mg PO BEDTIME 10/14/21 08/28/23 08/27/23 History sodium chloride 1 gram tablet 2 tab PO BID@0900,1700 01/20/22 08/28/23 08/28/23 History insulin lispro 100 unit/mL 1 sliding scale dose subcut TIDAC 03/12/22 08/28/23 08/28/23 History subcutaneous solution (Humalog U-100 Insulin) omeprazole magnesium 10 mg oral 40 mg PO DAILY 03/12/22 08/28/23 08/28/23 History suspension,delayed release ascorbic acid (vitamin C) 500 mg 500 mg PO BID@0900,1700 03/25/23 08/28/23 08/28/23 History tablet cranberry fruit 450 mg tablet 450 mg PO DAILY 03/25/23 08/28/23 08/28/23 History estradiol 0.01% (0.1 mg/gram) 0.5 appful vaginal MOWEFR 03/25/23 08/28/23 04/10/23 History vaginal cream (Estrace) lisinopril 5 mg tablet 5 mg PO DAILY 03/25/23 08/28/23 08/28/23 History ferrous fumarate 324 mg (106 mg 324 mg PO DAILY 08/28/23 08/28/23 08/28/23 History iron) tablet fosfomycin tromethamine 3 gram 1 packet PO Q3D 08/28/23 08/28/23 08/26/23 History oral packet insulin glargine-yfgn 100 unit/mL 6 unit subcut BEDTIME 08/28/23 08/28/23 08/27/23 History subcutaneous solution levetiracetam 500 mg tablet 500 mg PO BID@0900,1700 08/28/23 08/28/23 08/28/23 History (Hedy) menthol 0.44 %-zinc oxide 20.6 % 1 appl topical BID PRN Skin 08/28/23 08/28/23 Unknown History topical ointment (Calmoseptine) Irritation Physical Exam 2 Vital Signs: Vital Signs: Last Vital Signs Temp 97.4 F 08/29/23 19:16 Pulse 92 08/29/23 19:16 Resp 16 08/29/23 19:16 BP 163/78 H 08/29/23 19:16 Pulse Ox 98 08/29/23 19:16 O2 Del Method Room Air 08/29/23 19:16 BMI result Body Mass Index 22.7 Const: General: cooperative HEENT: Head: Yes normal to inspection Face and sinus: Yes normal facial exam Mouth: Normal oral and palatal mucosa present Teeth and gingiva: d entition normal Eyes: General: appearance normal, both eyes and all related structures P upils: Equal, round and reactive pupils present Resp: Effort & Inspection: normal respiratory effort Cardio: Rate: regular rate Rhythm: regular rhythm GI: Palpation (GI): Soft to palpation and nontender : General: Yes no CVA tenderness Back/Spine/Pelvis: Back: no CVA tenderness Skin: General skin exam: no rashes or lesions noted Neuro: General: moves all extremities Cranial nerves: Yes Equal, round and reactive pupils present Extrem: General: Yes normal to inspection Psych: Other: confusion wheelchair bound Appearance: grossly normal Results Labs 08/28/23 17:53 08/29/23 05:44 Labs: BMP 08/29/23 05:44 Sodium 135 Potassium 3.9 Chloride 102 Carbon Dioxide 26 BUN 21 H Creatinine 0.76 Calcium 8.6 Microbiology Microbiology Results: Microbiology 08/28/23 17:53 Blood - Venous Blood Culture - Preliminary No growth after 24 hours. 08/28/23 17:53 Blood - Venous Blood Culture - Preliminary No growth after 24 hours. 08/28/23 18:28 Urine clean catch - Urine robertson top Urine Culture - Preliminary Gram negative tong Assessment and Plan (1) Altered mental status: Status: Acute probable UTI she has likely problems with urinary retention (2) Acute metabolic encephalopathy: Status: Acute (3) Urinary tract infection: Status: Acute Plan Continue Ceftriaxone await culture she had most recently fosfomycin Dec 5 and Cefpodoxime for 14 days 08/14. She also has had methenamine can continue Follow Urology retention
[2023-08-30] VITALS (7 sets, daily range): BP systolic 115–164; BP diastolic 58–79; PULSE 83–100; RESP 17–18; TEMP 35.8–37.1; O2SAT 94–98
[2023-08-30 06:50] LABS: Hemoglobin 11.1 g/dl (12.0-16.0); Mean Corpuscular HGB Conc 33.6 g/dl (31.0-35.0); Mean Corpuscular Hemoglobin 32.7 pg (27.0-33.0); Mean Corpuscular Volume 97.3 fL (80.0-98.0); Mean Platelet Volume 10.6 fL (9.4-12.3); Platelet Count 280 X10*3/uL (160-400); Red Blood Count 3.39 X10*6/uL (4.20-5.50); Red Cell Distribution Width 16.4 % (11.0-16.0); White Blood Count 5.5 X10*3/uL (4.8-10.8)
[2023-08-30 07:22] LABS: Blood Urea Nitrogen 24 mg/dL (9-16); Creatinine Clr Calc Pharmacy 41.4; Estimated Glomerular Filt Rate 57
[2023-08-30 07:25] LABS: Glucose, Whole Blood 333 mg/dL (60-115)
[2023-08-30] MEDS: Insulin Lispro 100 UNIT/ML 3 ML VIAL SUBCUT ×7 (07:50→21:00)
[2023-08-30 07:57] LABS: Anion Gap 15 (12-20); Carbon Dioxide 25 mmol/L (22-29); Chloride 99 mmol/L (96-108); Glucose Random 355 mg/dL (60-115); Sodium 134 mmol/L (135-145)
[2023-08-30] MEDS: Omeprazole 40 MG CAPSULE.DR PO (07:58)
[2023-08-30] MEDS: Cyanocobalamin (Vitamin B-12) 500 MCG TABLET PO (07:58)
[2023-08-30] MEDS: lisinopriL 5 MG TABLET PO (07:59)
[2023-08-30] MEDS: Ferrous Sulfate 324 MG TABLET.DR PO (07:59)
[2023-08-30] MEDS: Sodium Chloride Tab 1 GM TABLET 2 GM PO ×2 (07:59→17:01)
[2023-08-30] MEDS: levETIRAcetam 500 MG TABLET PO ×2 (07:59→17:01)
[2023-08-30] MEDS: 0.9 % Sodium Chloride Flush 3 ML SYRINGE IVFLUSH ×3 (07:59→21:02)
[2023-08-30] MEDS: Ascorbic Acid 500 MG TABLET PO ×2 (07:59→17:01)
--- NOTE | 2023-08-30 10:32 | HO.PM.IMPN ---
Subjective Subjective Date of Service: 08/30/23 Interval History: Seen and evaluated alert and interactive pending urine culture No significant retention denies fever or chills Review of Systems Review of Systems: Yes all other systems are reviewed and are negative Physical Exam Vital Signs: Vital Signs: Last Vital Signs Temp 98.2 F 08/30/23 07:13 Pulse 100 08/30/23 07:13 Resp 18 08/30/23 07:13 BP 136/61 08/30/23 07:13 Pulse Ox 95 08/30/23 07:13 O2 Del Method Room Air 08/30/23 07:13 BMI result Body Mass Index 22.7 Const: Other: Constitutional : Awake, interactive, not in distress Neck : Normal inspection, Supple Cardiovascular : RRR, no JVP, no lower extremity edema Respiratory : good bilateral air entry, no crackles, wheezes or rhonchi Gastrointestinal: soft, lax, Normal bowel sounds, Non tender Skin : Warm, Dry Neurological : Alert & oriented to self only, No focal deficit Objective Data Active Medications Acetaminophen (Acetaminophen 325 Mg Tablet) 650 mg PO Q6H PRN PRN Reason: Pain, Mild (Pain Scale 1-3) Ascorbic Acid (Ascorbic Acid 500 Mg Tablet) 500 mg PO BID@0900,1700 [facility] Last Admin: 08/30/23 07:59 Dose: 500 mg Documented By: AMANDA Atorvastatin Calcium (Atorvastatin Calcium 10 Mg Tablet) 10 mg PO BEDTIME [facility] Last Admin: 08/29/23 21:41 Dose: 10 mg Documented By: RODRIGUE Benzonatate (Benzonatate 100 Mg Capsule) 100 mg PO TID PRN PRN Reason: Cough Cyanocobalamin (Cyanocobalamin (Vitamin B-12) 500 Mcg Tablet) 500 mcg PO DAILY [facility] Last Admin: 08/30/23 07:58 Dose: 500 mcg Documented By: AMANDA Dextrose (Dextrose 50 % 25 Gm/50 Ml Syringe) 25 gm IVPUSH Q15M PRN; Protocol PRN Reason: per Hypoglycemia Standing Ord. Docusate Sodium (Docusate Sodium 100 Mg Capsule) 100 mg PO DAILY PRN PRN Reason: Constipation Enoxaparin Sodium (Enoxaparin Sodium 40 Mg/0.4 Ml Syringe) 40 mg SUBCUT Q24H [facility] Last Admin: 08/29/23 21:41 Dose: 40 mg Documented By: RODRIGUE Ferrous Sulfate (Ferrous Sulfate 324 Mg Tablet.) 324 mg PO DAILY [facility] Last Admin: 08/30/23 07:59 Dose: 324 mg Documented By: AMANDA Glucose (Glucose Gel 15 Gm Gel..Gram.) 15 gm PO Q15M PRN; Protocol PRN Reason: per Hypoglycemia Standing Ord. Ceftriaxone Sodium 1 gm/ (Sodium Chloride) 50 mls @ 100 mls/hr IV Q24H [facility] Last Infusion: 08/29/23 22:13 Dose: Infused Documented By: RODRIGUE Insulin Glargine (Insulin Glargine,Hum.Rec.Anlog 100 Unit/Ml 10 Ml Vial) 6 unit SUBCUT BEDTIME [facility] Insulin Human Lispro (Insulin Lispro 100 Unit/Ml 3 Ml Vial) 0 unit SUBCUT QIDACHS [facility]; Protocol Last Admin: 08/30/23 07:58 Dose: 8 unit Documented By: AMANDA Insulin Human Lispro (Insulin Lispro 100 Unit/Ml 3 Ml Vial) 0 - 2 unit SUBCUT DAILY@1730 [facility] Last Admin: 08/29/23 16:33 Dose: Not Given Documented By: EAGLE Non-Admin Reason: Previously Administered Insulin Human Lispro (Insulin Lispro 100 Unit/Ml 3 Ml Vial) 3 - 4 unit SUBCUT DAILY@1130 [facility] Last Admin: 08/29/23 11:34 Dose: 4 unit Documented By: EAGLE Insulin Human Lispro (Insulin Lispro 100 Unit/Ml 3 Ml Vial) 4 unit SUBCUT DAILY [facility] Last Admin: 08/30/23 07:58 Dose: 4 unit Documented By: AMANDA Levetiracetam (Levetiracetam 500 Mg Tablet) 500 mg PO BID@0900,1700 [facility] Last Admin: 08/30/23 07:59 Dose: 500 mg Documented By: MAANDA Lisinopril (Lisinopril 5 Mg Tablet) 5 mg PO DAILY [facility]; Protocol Last Admin: 08/30/23 07:59 Dose: 5 mg Documented By: AMANDA Melatonin (Melatonin 3 Mg Tablet) 6 mg PO BEDTIME PRN PRN Reason: Insomnia Omeprazole (Omeprazole 40 Mg Capsule.) 40 mg PO DAILY [facility] Last Admin: 08/30/23 07:58 Dose: 40 mg Documented By: AMANDA Sodium Chloride (0.9 % Sodium Chloride Flush 3 Ml Syringe) 3 ml IVFLUSH QSHIFT [facility] Last Admin: 08/30/23 07:59 Dose: 3 ml Documented By: AMANDA Sodium Chloride (Sodium Chloride Tab 1 Gm Tablet) 2 gm PO BID@0900,1700 [facility] Last Admin: 08/30/23 07:59 Dose: 2 gm Documented By: AMANDA Vitamin D (Cholecalciferol (Vitamin D3) 25 Mcg Tablet) 125 mcg PO DAILY@1700 [facility] Last Admin: 08/29/23 16:25 Dose: 125 mcg Documented By: FOGARTB Labs 08/30/23 06:11 08/30/23 06:11 Labs: Laboratory Results - last 24 hr 08/29/23 08/29/23 08/29/23 10:54 16:01 20:04 MCV MCH MCHC RDW Plt Count MPV Absolute Nucleated RBC Nucleated RBC % (auto) Anion Gap Estim Creat Clear Calc Estimated GFR POC Glucose 218 H 159 H 199 H Random Glucose Calcium 08/30/23 08/30/23 06:11 07:11 MCV 97.3 MCH 32.7 MCHC 33.6 RDW 16.4 H Plt Count 280 MPV 10.6 Absolute Nucleated RBC 0.000 Nucleated RBC % (auto) 0.0 Anion Gap 15 Estim Creat Clear Calc 41.4 Estimated GFR 57 POC Glucose 333 H Random Glucose 355 H* Calcium 9.0 Microbiology Microbiology Results: Microbiology 08/28/23 18:28 Urine Culture - Preliminary Urine clean catch - Urine robertson top Escherichia coli 08/28/23 17:53 Blood Culture - Preliminary Blood - Venous No growth after 24 hours. 08/28/23 17:53 Blood Culture - Preliminary Blood - Venous No growth after 24 hours. Assessment and Plan (1) Acute metabolic encephalopathy: Status: Acute (2) Urinary tract infection: Status: Acute Plan Pt is a 78-year-old female with a PMH significant for?CAD, CKD, vascular dementia, type 1 diabetes, GERD, HTN, HLD, hypothyroidism, POTS, recurrent UTI, and chronically wheelchair-bound who presents to the ED with?for increased confusion and weakness, and low sodium as reported by PCP. Pt will be admitted to the hospital for treatment and further evaluation of acute metabolic encephalopathy in the setting of UTI. Acute metabolic encephalopathy in the setting of UTI improving Hx recurrent UTIs for past 9+ months; been on 8 different antibiotics during this time Continue Ceftriaxone, started 08/28/2023 Voiding trial negative for any significant retention ID input appreciated Follow cultures Monitor mentation Hyponatremia, Acute on chronic resolved Continue home sodium chloride Follow BMP Type 1 diabetes keep modified lispro meal dosing SSI, Lantus Diabetic diet Diet Pureed diet, thin liquids Glucerna supplement t.i.d. Hx of seizure Continue Keppra GERD PPI HLD Continue statin HTN Continue lisinopril Full Code DVT Prophylaxis: Lovenox Pt will require a hospitalization of at least two nights for treatment of?acute metabolic encephalopathy in the setting of UTI with IV antibiotics and close monitoring. Quality Stroke Does the patient have a stroke diagnosis?: No VTE Prior VTE?: No VTE Risk Level:: Medical - moderate - high VTE Device Contraindication: Treatment Not Indicated VTE Drug Contraindication: N/A - Med Ordered
[2023-08-30 11:08] LABS: Glucose, Whole Blood 300 mg/dL (60-115)
--- NOTE | 2023-08-30 11:19 | MHC.CM.PN ---
Addendum entered by Chaparrita Ariza RN 08/30/23 15:31: CM RECEIVED A CALL FROM PRISCILA AT [facility] REPORTING PT IS AT BASELINE AND THAT WOULD WANT PT HOME AND THEY WOULD SEND A NURSE TO SEE PT 24HRS FROM DC AND HOME PT. HOWEVER CM RECEIVED A CALL FROM PT'S WHO WAS VERY UPSET REGARDING PT ANTIC DC TOMORROW AND WANTS WHAT IS MEDICALLY NEEDED AND RECOMMENDED AND HE WOULD LIKE PT TO GO TO STR PER P.T. REC'S. Original Note: EMR REVIEWED, P.T. RECOMMENDING STR, CM WILL SEND REFERRALS TO [facility] CONTRACTED SNF'S, CM ALSO RECEIVED A MESSAGE TO CONTACT [facility] REGARDING DC PLANNING AND FOLLOW UP W/PT/, PER HOSPITALIST PT NOT READY FOR DC DUE TO AWAITING FINAL BC'S, CM WILL CONT TO FOLLOW DC NEEDS.
[2023-08-30 16:40] LABS: Glucose, Whole Blood 151 mg/dL (60-115)
[2023-08-30 16:48] LABS: Glucose, Whole Blood 159 mg/dL (60-115)
[2023-08-30] MEDS: Cholecalciferol (Vitamin D3) 25 MCG TABLET 125 MCG PO (17:00)
[2023-08-30 20:55] LABS: Glucose, Whole Blood 167 mg/dL (60-115)
[2023-08-30] MEDS: Atorvastatin Calcium 10 MG TABLET PO (20:59)
[2023-08-30] MEDS: Insulin Glargine,Hum.rec.anlog 100 UNIT/ML 10 ML VIAL 6 UNIT SUBCUT (21:05)
[2023-08-30] MEDS: cefTRIAXone sodium 1 GM in 0.9 % Sodium Chloride 50 ML IV (23:23)
[2023-08-30] MEDS: Enoxaparin Sodium 40 MG/0.4 ML SYRINGE SUBCUT (23:28)
[2023-08-31 03:29] VITALS: BP 142/67; PULSE 93; RESP 18; TEMP 36.9; O2SAT 95
[2023-08-31 06:47] LABS: Anion Gap 14 (12-20); Blood Urea Nitrogen 22 mg/dL (9-16); Carbon Dioxide 25 mmol/L (22-29); Chloride 99 mmol/L (96-108); Creatinine Clr Calc Pharmacy 46.8; Estimated Glomerular Filt Rate > 60; Glucose Random 178 mg/dL (60-115); Potassium 4.2 mmol/L (3.3-5.1); Sodium 134 mmol/L (135-145)
[2023-08-31 06:48] LABS: Anion Gap 13 (12-20); Blood Urea Nitrogen 21 mg/dL (9-16); Carbon Dioxide 26 mmol/L (22-29); Chloride 99 mmol/L (96-108); Creatinine Clr Calc Pharmacy 46.3; Estimated Glomerular Filt Rate > 60; Glucose Random 176 mg/dL (60-115); Potassium 4.2 mmol/L (3.3-5.1); Sodium 134 mmol/L (135-145)
[2023-08-31 07:19] LABS: Glucose, Whole Blood 178 mg/dL (60-115)
[2023-08-31 07:32] VITALS: BP 158/74; PULSE 91; RESP 20; TEMP 36.8; O2SAT 96
[2023-08-31] MEDS: levETIRAcetam 500 MG TABLET PO ×2 (10:03→16:22)
[2023-08-31] MEDS: lisinopriL 5 MG TABLET PO (10:03)
[2023-08-31] MEDS: Ferrous Sulfate 324 MG TABLET.DR PO (10:03)
[2023-08-31] MEDS: Omeprazole 40 MG CAPSULE.DR PO (10:04)
[2023-08-31] MEDS: Cyanocobalamin (Vitamin B-12) 500 MCG TABLET PO (10:04)
[2023-08-31] MEDS: Sodium Chloride Tab 1 GM TABLET 2 GM PO ×2 (10:05→16:22)
[2023-08-31] MEDS: Insulin Lispro 100 UNIT/ML 3 ML VIAL SUBCUT ×7 (10:05→20:09)
[2023-08-31] MEDS: Ascorbic Acid 500 MG TABLET PO ×2 (10:05→16:22)
[2023-08-31] MEDS: 0.9 % Sodium Chloride Flush 3 ML SYRINGE IVFLUSH ×3 (10:24→19:54)
--- NOTE | 2023-08-31 11:14 | HO.PM.IMPN ---
Subjective Subjective Date of Service: 08/31/23 Interval History: Seen and evaluated more alert and interactive urine culture growing ESBL E.Coli denies fever or chills Review of Systems Review of Systems: Yes all other systems are reviewed and are negative Physical Exam Vital Signs: Vital Signs: Last Vital Signs Temp 98.3 F 08/31/23 07:32 Pulse 91 08/31/23 07:32 Resp 20 08/31/23 07:32 BP 158/74 H 08/31/23 07:32 Pulse Ox 96 08/31/23 07:32 O2 Del Method Room Air 08/31/23 07:32 BMI result Body Mass Index 22.7 Const: Other: Constitutional : Awake, interactive, not in distress Neck : Normal inspection, Supple Cardiovascular : RRR, no JVP, no lower extremity edema Respiratory : good bilateral air entry, no crackles, wheezes or rhonchi Gastrointestinal: soft, lax, Normal bowel sounds, Non tender Skin : Warm, Dry Neurological : Alert & oriented to self only, No focal deficit Objective Data Active Medications Acetaminophen (Acetaminophen 325 Mg Tablet) 650 mg PO Q6H PRN PRN Reason: Pain, Mild (Pain Scale 1-3) Ascorbic Acid (Ascorbic Acid 500 Mg Tablet) 500 mg PO BID@0900,1700 [facility] Last Admin: 08/31/23 10:05 Dose: 500 mg Documented By: JUAN FRANCISCO Atorvastatin Calcium (Atorvastatin Calcium 10 Mg Tablet) 10 mg PO BEDTIME [facility] Last Admin: 08/30/23 20:59 Dose: 10 mg Documented By: JOJO Benzonatate (Benzonatate 100 Mg Capsule) 100 mg PO TID PRN PRN Reason: Cough Cyanocobalamin (Cyanocobalamin (Vitamin B-12) 500 Mcg Tablet) 500 mcg PO DAILY [facility] Last Admin: 08/31/23 10:04 Dose: 500 mcg Documented By: JUAN FRANCISCO Dextrose (Dextrose 50 % 25 Gm/50 Ml Syringe) 25 gm IVPUSH Q15M PRN; Protocol PRN Reason: per Hypoglycemia Standing Ord. Docusate Sodium (Docusate Sodium 100 Mg Capsule) 100 mg PO DAILY PRN PRN Reason: Constipation Enoxaparin Sodium (Enoxaparin Sodium 40 Mg/0.4 Ml Syringe) 40 mg SUBCUT Q24H [facility] Last Admin: 08/30/23 23:28 Dose: 40 mg Documented By: JOJO Ferrous Sulfate (Ferrous Sulfate 324 Mg Tablet.) 324 mg PO DAILY [facility] Last Admin: 08/31/23 10:03 Dose: 324 mg Documented By: JUAN FRANCISCO Glucose (Glucose Gel 15 Gm Gel..Gram.) 15 gm PO Q15M PRN; Protocol PRN Reason: per Hypoglycemia Standing Ord. Meropenem 1 gm/ Sodium (Chloride) 100 mls @ 200 mls/hr IV Q8H [facility] Last Admin: 08/31/23 10:07 Dose: 200 mls/hr Documented By: JUAN FRANCISCO Insulin Glargine (Insulin Glargine,Hum.Rec.Anlog 100 Unit/Ml 10 Ml Vial) 6 unit SUBCUT BEDTIME [facility] Last Admin: 08/30/23 21:05 Dose: 6 unit Documented By: JOJO Insulin Human Lispro (Insulin Lispro 100 Unit/Ml 3 Ml Vial) 0 unit SUBCUT QIDACHS [facility]; Protocol Last Admin: 08/31/23 10:05 Dose: 2 unit Documented By: JUAN FRANCISCO Insulin Human Lispro (Insulin Lispro 100 Unit/Ml 3 Ml Vial) 0 - 2 unit SUBCUT DAILY@1730 [facility] Last Admin: 08/30/23 16:57 Dose: 2 unit Documented By: JENNIFER-FIDE Insulin Human Lispro (Insulin Lispro 100 Unit/Ml 3 Ml Vial) 3 - 4 unit SUBCUT DAILY@1130 [facility] Last Admin: 08/30/23 11:47 Dose: 4 unit Documented By: JENNIFER-FIDE Insulin Human Lispro (Insulin Lispro 100 Unit/Ml 3 Ml Vial) 4 unit SUBCUT DAILY [facility] Last Admin: 08/31/23 10:06 Dose: 4 unit Documented By: JUAN FRANCISCO Levetiracetam (Levetiracetam 500 Mg Tablet) 500 mg PO BID@0900,1700 [facility] Last Admin: 08/31/23 10:03 Dose: 500 mg Documented By: JUAN FRANCISCO Lisinopril (Lisinopril 5 Mg Tablet) 5 mg PO DAILY [facility]; Protocol Last Admin: 08/31/23 10:03 Dose: 5 mg Documented By: JUAN FRANCISCO Melatonin (Melatonin 3 Mg Tablet) 6 mg PO BEDTIME PRN PRN Reason: Insomnia Omeprazole (Omeprazole 40 Mg Capsule.) 40 mg PO DAILY [facility] Last Admin: 08/31/23 10:04 Dose: 40 mg Documented By: JUAN FRANCISCO Sodium Chloride (0.9 % Sodium Chloride Flush 3 Ml Syringe) 3 ml IVFLUSH QSHIFT [facility] Last Admin: 08/31/23 10:24 Dose: 3 ml Documented By: JUAN FRANCISCO Sodium Chloride (Sodium Chloride Tab 1 Gm Tablet) 2 gm PO BID@0900,1700 [facility] Last Admin: 08/31/23 10:05 Dose: 2 gm Documented By: JUAN FRANCISCO Vitamin D (Cholecalciferol (Vitamin D3) 25 Mcg Tablet) 125 mcg PO DAILY@1700 [facility] Last Admin: 08/30/23 17:00 Dose: 125 mcg Documented By: JENNIFER-RIVLA Labs 08/30/23 06:11 08/31/23 06:00 Labs: Laboratory Results - last 24 hr 08/30/23 08/30/23 08/30/23 16:36 16:42 20:51 Hold Purple Top Anion Gap Estim Creat Clear Calc Estimated GFR POC Glucose 151 H 159 H 167 H Random Glucose Calcium 08/31/23 08/31/23 08/31/23 06:00 06:00 06:00 Hold Purple Top SEE NOTE Anion Gap 13 14 Estim Creat Clear Calc 46.3 46.8 Estimated GFR > 60 POC Glucose Random Glucose Calcium 08/31/23 08/31/23 08/31/23 06:00 06:00 06:00 Hold Purple Top Anion Gap Estim Creat Clear Calc Estimated GFR > 60 POC Glucose Random Glucose 176 H 178 H Calcium 9.0 9.0 08/31/23 07:02 Hold Purple Top Anion Gap Estim Creat Clear Calc Estimated GFR POC Glucose 178 H Random Glucose Calcium Microbiology Microbiology Results: Microbiology 08/28/23 18:28 Urine Culture - Final Urine clean catch - Urine robertson top Escherichia coli 08/28/23 17:53 Blood Culture - Preliminary Blood - Venous No growth after 48 hours. 08/28/23 17:53 Blood Culture - Preliminary Blood - Venous No growth after 48 hours. Assessment and Plan (1) ESBL (extended spectrum beta-lactamase) producing bacteria infection: Status: Acute (2) Acute metabolic encephalopathy: Status: Acute (3) Urinary tract infection: Status: Acute Plan Pt is a 78-year-old female with a PMH significant for?CAD, CKD, vascular dementia, type 1 diabetes, GERD, HTN, HLD, hypothyroidism, POTS, recurrent UTI, and chronically wheelchair-bound who presents to the ED with?for increased confusion and weakness, and low sodium as reported by PCP. Pt will be admitted to the hospital for treatment and further evaluation of acute metabolic encephalopathy in the setting of UTI. Acute metabolic encephalopathy in the setting of UTI improving Hx recurrent UTIs for past 9+ months; been on 8 different antibiotics during this time Urine Cx growing ESBL E.Coli DC Ceftriaxone, started 08/28/2023 Start Meropenem Voiding trial negative for any significant retention ID to follow Monitor mentation Hyponatremia, Acute on chronic resolved Continue home sodium chloride Follow BMP Type 1 diabetes with hyperglycemia keep modified lispro meal dosing SSI, Lantus Diabetic diet Diet Pureed diet, thin liquids Glucerna supplement t.i.d. Hx of seizure Continue Keppra GERD PPI HLD Continue statin HTN Continue lisinopril Full Code DVT Prophylaxis: Lovenox Pt will require a hospitalization overnight for treatment of?acute metabolic encephalopathy in the setting of UTI with resistant bacteria on IV Abx Quality Stroke Does the patient have a stroke diagnosis?: No VTE Prior VTE?: No VTE Risk Level:: Medical - moderate - high VTE Device Contraindication: Treatment Not Indicated VTE Drug Contraindication: N/A - Med Ordered
[2023-08-31 11:35] LABS: Glucose, Whole Blood 328 mg/dL (60-115)
[2023-08-31 12:00] VITALS: BP 109/56; PULSE 83; RESP 20; TEMP 37.1; O2SAT 95
[2023-08-31 15:58] LABS: Glucose, Whole Blood 254 mg/dL (60-115)
[2023-08-31 16:00] VITALS: BP 165/72; PULSE 81; RESP 19; TEMP 36.7; O2SAT 98
[2023-08-31] MEDS: Cholecalciferol (Vitamin D3) 25 MCG TABLET 125 MCG PO (16:22)
[2023-08-31 19:36] VITALS: BP 159/79; PULSE 86; RESP 18; TEMP 36.5; O2SAT 99
[2023-08-31] MEDS: Atorvastatin Calcium 10 MG TABLET PO (19:54)
[2023-08-31 20:03] LABS: Glucose, Whole Blood 154 mg/dL (60-115)
[2023-08-31] MEDS: Insulin Glargine,Hum.rec.anlog 100 UNIT/ML 10 ML VIAL 6 UNIT SUBCUT (20:09)
[2023-08-31 23:26] VITALS: BP 158/68; PULSE 83; RESP 16; TEMP 36.1; O2SAT 99
[2023-08-31] MEDS: Enoxaparin Sodium 40 MG/0.4 ML SYRINGE SUBCUT (23:28)
[2023-09-01] VITALS (7 sets, daily range): BP systolic 90–160; BP diastolic 50–72; PULSE 78–94; RESP 14–20; TEMP 36.6–37.4; O2SAT 94–99
--- NOTE | 2023-09-01 00:05 | PM.EVENT ---
Event Note Date of Service: 08/16/24 Event Note: ESBL E coli cant take Levaquin IV Merem,Ertapenem if sensitive for 10 d rx possible pyelonephritis Time Spent With Patient Time: Total time managing care of this patient today ____ minutes.
[2023-09-01 07:17] LABS: Glucose, Whole Blood 93 mg/dL (60-115)
[2023-09-01] MEDS: Cyanocobalamin (Vitamin B-12) 500 MCG TABLET PO (08:26)
[2023-09-01] MEDS: levETIRAcetam 500 MG TABLET PO ×2 (08:26→17:32)
[2023-09-01] MEDS: lisinopriL 5 MG TABLET PO (08:26)
[2023-09-01] MEDS: Omeprazole 40 MG CAPSULE.DR PO (08:26)
[2023-09-01] MEDS: Ascorbic Acid 500 MG TABLET PO ×2 (08:27→17:32)
[2023-09-01] MEDS: 0.9 % Sodium Chloride Flush 3 ML SYRINGE IVFLUSH ×3 (08:27→21:46)
[2023-09-01] MEDS: Ferrous Sulfate 324 MG TABLET.DR PO (08:27)
[2023-09-01] MEDS: Insulin Lispro 100 UNIT/ML 3 ML VIAL SUBCUT ×6 (08:27→21:43)
[2023-09-01] MEDS: Sodium Chloride Tab 1 GM TABLET 2 GM PO ×2 (08:27→17:31)
[2023-09-01 09:38] LABS: Glucose, Whole Blood 160 mg/dL (60-115)
--- NOTE | 2023-09-01 09:39 | PC.NURSE ---
This RN called into room by [employer]OL MACHINE [employer] SUPERVISOR. Pt on commode, leaning to R side and head drooping down. Pt assessed and weakness on R side observed. Speech noted to be slowed and mumbled. Vitals taken with BP of 53/35, HR 91. Rapid response called. Pt lifted back into bed by 2 staff members. Legs elevated. Provider performed at assessment at bedside. Repeat blood pressures 90/51 and 94/52. Pt speech more clear and strength improving on R side. L pupil noted to be more dilated. New orders received for 1 L bolus of NS. Pt awake and alert at this time. No new concerns at this time.
[2023-09-01] MEDS: 0.9 % Sodium Chloride 1,000 ML 999 ML IV (09:45)
--- NOTE | 2023-09-01 11:10 | HO.PM.IMPN ---
Subjective Subjective Date of Service: 09/01/23 Interval History: Seen and evaluated alert and interactive Had an episode of near syncope this morning while on commode Denies any pain, fever or chills Review of Systems Review of Systems: Yes all other systems are reviewed and are negative Physical Exam Vital Signs: Vital Signs: Last Vital Signs Temp 98 F 09/01/23 09:43 Pulse 94 09/01/23 09:43 Resp 16 09/01/23 09:43 BP 90/51 L 09/01/23 09:43 Pulse Ox 99 09/01/23 09:43 O2 Del Method Room Air 09/01/23 09:43 BMI result Body Mass Index 22.7 Const: Other: Constitutional : Awake, interactive, not in distress Neck : Normal inspection, Supple Cardiovascular : RRR, no JVP, no lower extremity edema Respiratory : good bilateral air entry, no crackles, wheezes or rhonchi Gastrointestinal: soft, lax, Normal bowel sounds, Non tender Skin : Warm, Dry Neurological : Alert & oriented to self and place, No focal deficit Objective Data Active Medications Acetaminophen (Acetaminophen 325 Mg Tablet) 650 mg PO Q6H PRN PRN Reason: Pain, Mild (Pain Scale 1-3) Ascorbic Acid (Ascorbic Acid 500 Mg Tablet) 500 mg PO BID@0900,1700 [facility] Last Admin: 09/01/23 08:27 Dose: 500 mg Documented By: JUAN FRANCISCO Atorvastatin Calcium (Atorvastatin Calcium 10 Mg Tablet) 10 mg PO BEDTIME [facility] Last Admin: 08/31/23 19:54 Dose: 10 mg Documented By: JOJO Benzonatate (Benzonatate 100 Mg Capsule) 100 mg PO TID PRN PRN Reason: Cough Cyanocobalamin (Cyanocobalamin (Vitamin B-12) 500 Mcg Tablet) 500 mcg PO DAILY [facility] Last Admin: 09/01/23 08:26 Dose: 500 mcg Documented By: JUAN FRANCISCO Dextrose (Dextrose 50 % 25 Gm/50 Ml Syringe) 25 gm IVPUSH Q15M PRN; Protocol PRN Reason: per Hypoglycemia Standing Ord. Docusate Sodium (Docusate Sodium 100 Mg Capsule) 100 mg PO DAILY PRN PRN Reason: Constipation Docusate Sodium (Docusate Sodium 100 Mg Capsule) 100 mg PO BID [facility] Enoxaparin Sodium (Enoxaparin Sodium 40 Mg/0.4 Ml Syringe) 40 mg SUBCUT Q24H [facility] Last Admin: 08/31/23 23:28 Dose: 40 mg Documented By: JOJO Ferrous Sulfate (Ferrous Sulfate 324 Mg Tablet.Dr) 324 mg PO DAILY [facility] Last Admin: 09/01/23 08:27 Dose: 324 mg Documented By: JUAN FRANCISCO Glucose (Glucose Gel 15 Gm Gel..Gram.) 15 gm PO Q15M PRN; Protocol PRN Reason: per Hypoglycemia Standing Ord. Meropenem 1 gm/ Sodium (Chloride) 100 mls @ 200 mls/hr IV Q8H [facility] Last Infusion: 09/01/23 09:35 Dose: Infused Documented By: JUAN FRANCISCO Insulin Glargine (Insulin Glargine,Hum.Rec.Anlog 100 Unit/Ml 10 Ml Vial) 6 unit SUBCUT BEDTIME [facility] Last Admin: 08/31/23 20:09 Dose: 6 unit Documented By: JOJO Insulin Human Lispro (Insulin Lispro 100 Unit/Ml 3 Ml Vial) 0 unit SUBCUT QIDACHS [facility]; Protocol Last Admin: 09/01/23 07:23 Dose: Not Given Documented By: JUAN FRANCISCO Non-Admin Reason: No Insulin Coverage Insulin Human Lispro (Insulin Lispro 100 Unit/Ml 3 Ml Vial) 0 - 2 unit SUBCUT DAILY@1730 [facility] Last Admin: 08/31/23 16:23 Dose: 2 unit Documented By: JUAN FRANCISCO Insulin Human Lispro (Insulin Lispro 100 Unit/Ml 3 Ml Vial) 3 - 4 unit SUBCUT DAILY@1130 [facility] Last Admin: 08/31/23 12:02 Dose: 4 unit Documented By: JUAN FRANCISCO Insulin Human Lispro (Insulin Lispro 100 Unit/Ml 3 Ml Vial) 4 unit SUBCUT DAILY [facility] Last Admin: 09/01/23 08:27 Dose: 4 unit Documented By: JUAN FRANCISCO Levetiracetam (Levetiracetam 500 Mg Tablet) 500 mg PO BID@0900,1700 [facility] Last Admin: 09/01/23 08:26 Dose: 500 mg Documented By: JUAN FRANCISCO Lisinopril (Lisinopril 5 Mg Tablet) 5 mg PO DAILY [facility]; Protocol Last Admin: 09/01/23 08:26 Dose: 5 mg Documented By: JUAN FRANCISCO Melatonin (Melatonin 3 Mg Tablet) 6 mg PO BEDTIME PRN PRN Reason: Insomnia Omeprazole (Omeprazole 40 Mg Capsule.) 40 mg PO DAILY [facility] Last Admin: 09/01/23 08:26 Dose: 40 mg Documented By: JUAN FRANCISCO Psyllium Hydrophilic Mucilloid (Psyllium Seed 3.7 Gm Packet) 3.7 gm PO DAILY [facility] Sodium Chloride (0.9 % Sodium Chloride Flush 3 Ml Syringe) 3 ml IVFLUSH QSHIFT [facility] Last Admin: 09/01/23 08:27 Dose: 3 ml Documented By: JUAN FRANCISCO Sodium Chloride (Sodium Chloride Tab 1 Gm Tablet) 2 gm PO BID@0900,1700 [facility] Last Admin: 09/01/23 08:27 Dose: 2 gm Documented By: JUAN FRANCISCO Vitamin D (Cholecalciferol (Vitamin D3) 25 Mcg Tablet) 125 mcg PO DAILY@1700 [facility] Last Admin: 08/31/23 16:22 Dose: 125 mcg Documented By: JUAN FRANCISCO Labs 08/30/23 06:11 08/31/23 06:00 Labs: Laboratory Results - last 24 hr 08/31/23 08/31/23 08/31/23 11:23 15:46 19:59 POC Glucose 328 H 254 H 154 H 09/01/23 09/01/23 07:10 09:27 POC Glucose 93 160 H Microbiology Microbiology Results: Microbiology 08/28/23 18:28 Urine Culture - Final Urine clean catch - Urine robertson top Escherichia coli Assessment and Plan (1) ESBL (extended spectrum beta-lactamase) producing bacteria infection: Status: Acute (2) Acute metabolic encephalopathy: Status: Acute (3) Syncope: Status: Acute Plan Pt is a 78-year-old female with a PMH significant for?CAD, CKD, vascular dementia, type 1 diabetes, GERD, HTN, HLD, hypothyroidism, POTS, recurrent UTI, and chronically wheelchair-bound who presents to the ED with?for increased confusion and weakness, and low sodium as reported by PCP. Pt will be admitted to the hospital for treatment and further evaluation of acute metabolic encephalopathy in the setting of UTI. Acute metabolic encephalopathy in the setting of UTI improving Urine Cx growing ESBL E.Coli Continue Meropenem for 10 days to get Midline tomorrow Voiding trial negative for any significant retention ID input appreciated Monitor mentation Near syncope Vasovagal attack vs orthostatic Give bolus of fluids Laxatives to decrease need of straining Hyponatremia, Acute on chronic resolved Continue home sodium chloride Follow BMP Type 1 diabetes with hyperglycemia keep modified lispro meal dosing SSI, Lantus Diabetic diet Diet Pureed diet, thin liquids Glucerna supplement t.i.d. Hx of seizure Continue Keppra GERD PPI HLD Continue statin HTN Continue lisinopril Full Code DVT Prophylaxis: Lovenox Pt will require a hospitalization overnight for treatment of?acute metabolic encephalopathy in the setting of UTI with resistant bacteria on IV Abx Quality Stroke Does the patient have a stroke diagnosis?: No VTE Prior VTE?: No VTE Risk Level:: Medical - moderate - high VTE Device Contraindication: Treatment Not Indicated VTE Drug Contraindication: N/A - Med Ordered
[2023-09-01] MEDS: Psyllium seed 3.7 GM PACKET PO (11:29)
[2023-09-01] MEDS: Docusate Sodium 100 MG CAPSULE PO ×2 (11:29→21:43)
[2023-09-01 11:53] LABS: Glucose, Whole Blood 165 mg/dL (60-115)
[2023-09-01 17:04] LABS: Glucose, Whole Blood 170 mg/dL (60-115)
[2023-09-01] MEDS: Cholecalciferol (Vitamin D3) 25 MCG TABLET 125 MCG PO (17:32)
[2023-09-01 19:59] LABS: Glucose, Whole Blood 233 mg/dL (60-115)
[2023-09-01] MEDS: Atorvastatin Calcium 10 MG TABLET PO (21:43)
[2023-09-01] MEDS: Insulin Glargine,Hum.rec.anlog 100 UNIT/ML 10 ML VIAL 6 UNIT SUBCUT (21:44)
[2023-09-01] MEDS: Enoxaparin Sodium 40 MG/0.4 ML SYRINGE SUBCUT (21:46)
[2023-09-02] VITALS (7 sets, daily range): BP systolic 101–135; BP diastolic 49–68; PULSE 75–93; RESP 17–20; TEMP 36.4–37.7; O2SAT 92–97
[2023-09-02 07:56] LABS: Glucose, Whole Blood 251 mg/dL (60-115)
--- NOTE | 2023-09-02 08:59 | HO.MIDLINE ---
Midline Insertion MIDLINE INSERTION Diagnosis: Acute UTI Indication: ABT x 2 wks Pertinent Labs: reviewed Technique: Using sterile technique including cap and mask, glove and drape, the right arm was prepped and draped in the usual sterile fashion of full barrier technique with CHG. Using ultrasound guidance, right basilic vein access was obtained . 20G x 8cm powerglide ST midline catheter was positioned. The procedure was performed in room 272. Ultrasound was used to document vein patency and for needle entry. A formal ultrasound picture was recorded. Vascular Health And Safety Coordinator has released the line for use and it is currently dressed with a StatLock, Tegaderm, and CHG disc. Verification has been performed for blood return and line patency. Arm Circumference: 23cm Equipment: BARD PowerGlide ST midline catheter Catheter Type: 20G x 8 CM catheter Lot #: [id number]
[2023-09-02 09:12] LABS: Glucose, Whole Blood 274 mg/dL (60-115)
[2023-09-02] MEDS: levETIRAcetam 500 MG TABLET PO ×2 (09:24→17:08)
[2023-09-02] MEDS: Ferrous Sulfate 324 MG TABLET.DR PO (09:24)
[2023-09-02] MEDS: lisinopriL 5 MG TABLET PO (09:24)
[2023-09-02] MEDS: Cyanocobalamin (Vitamin B-12) 500 MCG TABLET PO (09:24)
[2023-09-02] MEDS: Ascorbic Acid 500 MG TABLET PO ×2 (09:24→17:08)
[2023-09-02] MEDS: Sodium Chloride Tab 1 GM TABLET 2 GM PO ×2 (09:24→17:07)
[2023-09-02] MEDS: Psyllium seed 3.7 GM PACKET PO (09:24)
[2023-09-02] MEDS: Insulin Lispro 100 UNIT/ML 3 ML VIAL SUBCUT ×6 (09:24→17:08)
[2023-09-02] MEDS: Omeprazole 40 MG CAPSULE.DR PO (09:24)
[2023-09-02] MEDS: Docusate Sodium 100 MG CAPSULE PO ×2 (09:24→21:47)
[2023-09-02] MEDS: 0.9 % Sodium Chloride Flush 3 ML SYRINGE IVFLUSH ×3 (09:25→21:54)
--- NOTE | 2023-09-02 11:10 | MHC.CM.PN ---
MAGNOLIA met with Patient and her /HCP/Angel at bedside to discuss dc planning;HOME is the plan,NOT SNF/STR. MAGNOLIA received a message from [employer] [facility] @ [phone] indicating that [facility] does not do IV ABT @ home. MAGNOLIA and Angel called [facility] @ [phone] and MAGNOLIA also spoke with Evy, who asked CM to make a referral to [facility](trying to accommodate INVANZ 1GM daily for 7 more days @ home). MAGNOLIA has asked [facility] to contact Evy to make necessary arrangements.MAGNOLIA will follow.
--- NOTE | 2023-09-02 11:33 | MHC.CM.PN ---
IMM addressed with /HCP/Angel at bedside.
[2023-09-02 11:54] LABS: Glucose, Whole Blood 250 mg/dL (60-115)
--- NOTE | 2023-09-02 13:40 | MHC.CM.PN ---
[facility] has accepted Patient and is working with Evy/[facility] for payment and set up for services. [facility] anticipates that dc will not happen today; dc to home is likely going to be tomorrow, via BLS.CM will follow.
--- NOTE | 2023-09-02 14:14 | HO.PM.IMPN ---
Subjective Subjective Date of Service: 09/02/23 Interval History: Seen and evaluated alert and interactive midline placed this morning Denies any pain, fever or chills Review of Systems Review of Systems: Yes all other systems are reviewed and are negative Physical Exam Vital Signs: Vital Signs: Last Vital Signs Temp 97.7 F 09/02/23 11:22 Pulse 86 09/02/23 11:22 Resp 20 09/02/23 11:22 BP 105/49 L 09/02/23 11:22 Pulse Ox 97 09/02/23 11:22 O2 Del Method Room Air 09/02/23 11:22 BMI result Body Mass Index 22.7 Const: Other: Constitutional : Awake, interactive, not in distress Neck : Normal inspection, Supple Cardiovascular : RRR, no JVP, no lower extremity edema Respiratory : good bilateral air entry, no crackles, wheezes or rhonchi Gastrointestinal: soft, lax, Normal bowel sounds, Non tender Skin : Warm, Dry, midline in place with no surrounding erythema or drainage Neurological : Alert & oriented to self and place, No focal deficit Objective Data Active Medications Acetaminophen (Acetaminophen 325 Mg Tablet) 650 mg PO Q6H PRN PRN Reason: Pain, Mild (Pain Scale 1-3) Ascorbic Acid (Ascorbic Acid 500 Mg Tablet) 500 mg PO BID@0900,1700 [facility] Last Admin: 09/02/23 09:24 Dose: 500 mg Documented By: EAGLE Atorvastatin Calcium (Atorvastatin Calcium 10 Mg Tablet) 10 mg PO BEDTIME [facility] Last Admin: 09/01/23 21:43 Dose: 10 mg Documented By: TOMEKA Benzonatate (Benzonatate 100 Mg Capsule) 100 mg PO TID PRN PRN Reason: Cough Heparin Sodium (Porcine) 50 (units/ Sodium Chloride 5 ml) 0 units IVFLUSH TID [facility] Cyanocobalamin (Cyanocobalamin (Vitamin B-12) 500 Mcg Tablet) 500 mcg PO DAILY [facility] Last Admin: 09/02/23 09:24 Dose: 500 mcg Documented By: EAGLE Dextrose (Dextrose 50 % 25 Gm/50 Ml Syringe) 25 gm IVPUSH Q15M PRN; Protocol PRN Reason: per Hypoglycemia Standing Ord. Docusate Sodium (Docusate Sodium 100 Mg Capsule) 100 mg PO DAILY PRN PRN Reason: Constipation Docusate Sodium (Docusate Sodium 100 Mg Capsule) 100 mg PO BID [facility] Last Admin: 09/02/23 09:24 Dose: 100 mg Documented By: EAGLE Enoxaparin Sodium (Enoxaparin Sodium 40 Mg/0.4 Ml Syringe) 40 mg SUBCUT Q24H [facility] Last Admin: 09/01/23 21:46 Dose: 40 mg Documented By: TOMEKA Ferrous Sulfate (Ferrous Sulfate 324 Mg Tablet.Dr) 324 mg PO DAILY [facility] Last Admin: 09/02/23 09:24 Dose: 324 mg Documented By: EAGLE Glucose (Glucose Gel 15 Gm Gel..Gram.) 15 gm PO Q15M PRN; Protocol PRN Reason: per Hypoglycemia Standing Ord. Ertapenem 1 gm/ Sodium (Chloride) 50 mls @ 100 mls/hr IV ONCE ONE Stop: 09/02/23 17:29 Insulin Glargine (Insulin Glargine,Hum.Rec.Anlog 100 Unit/Ml 10 Ml Vial) 6 unit SUBCUT BEDTIME [facility] Last Admin: 09/01/23 21:44 Dose: 6 unit Documented By: TOMEKA Insulin Human Lispro (Insulin Lispro 100 Unit/Ml 3 Ml Vial) 0 unit SUBCUT QIDACHS [facility]; Protocol Last Admin: 09/02/23 12:07 Dose: 4 unit Documented By: EAGLE Insulin Human Lispro (Insulin Lispro 100 Unit/Ml 3 Ml Vial) 0 - 2 unit SUBCUT DAILY@1730 [facility] Last Admin: 09/01/23 17:33 Dose: 2 unit Documented By: JUAN FRANCISCO Insulin Human Lispro (Insulin Lispro 100 Unit/Ml 3 Ml Vial) 3 - 4 unit SUBCUT DAILY@1130 [facility] Last Admin: 09/02/23 12:08 Dose: 4 unit Documented By: EAGLE Insulin Human Lispro (Insulin Lispro 100 Unit/Ml 3 Ml Vial) 4 unit SUBCUT DAILY [facility] Last Admin: 09/02/23 09:25 Dose: 4 unit Documented By: EAGLE Levetiracetam (Levetiracetam 500 Mg Tablet) 500 mg PO BID@0900,1700 [facility] Last Admin: 09/02/23 09:24 Dose: 500 mg Documented By: EAGLE Lisinopril (Lisinopril 5 Mg Tablet) 5 mg PO DAILY [facility]; Protocol Last Admin: 09/02/23 09:24 Dose: 5 mg Documented By: EAGLE Melatonin (Melatonin 3 Mg Tablet) 6 mg PO BEDTIME PRN PRN Reason: Insomnia Omeprazole (Omeprazole 40 Mg Capsule.) 40 mg PO DAILY [facility] Last Admin: 09/02/23 09:24 Dose: 40 mg Documented By: EAGLE Psyllium Hydrophilic Mucilloid (Psyllium Seed 3.7 Gm Packet) 3.7 gm PO DAILY [facility] Last Admin: 09/02/23 09:24 Dose: 3.7 gm Documented By: EAGLE Sodium Chloride (0.9 % Sodium Chloride Flush 3 Ml Syringe) 3 ml IVFLUSH QSHIFT [facility] Last Admin: 09/02/23 09:25 Dose: 3 ml Documented By: EAGLE Sodium Chloride (Sodium Chloride Tab 1 Gm Tablet) 2 gm PO BID@0900,1700 [facility] Last Admin: 09/02/23 09:24 Dose: 2 gm Documented By: EAGLE Vitamin D (Cholecalciferol (Vitamin D3) 25 Mcg Tablet) 125 mcg PO DAILY@1700 [facility] Last Admin: 09/01/23 17:32 Dose: 125 mcg Documented By: JUAN FRANCISCO Labs 08/30/23 06:11 08/31/23 06:00 Labs: Laboratory Results - last 24 hr 09/01/23 09/01/23 09/02/23 16:23 19:20 07:33 POC Glucose 170 H 233 H 251 H 09/02/23 09/02/23 09:08 11:29 POC Glucose 274 H 250 H Assessment and Plan (1) ESBL (extended spectrum beta-lactamase) producing bacteria infection: Status: Acute (2) Altered mental status: Status: Acute Plan Pt is a 78-year-old female with a PMH significant for?CAD, CKD, vascular dementia, type 1 diabetes, GERD, HTN, HLD, hypothyroidism, POTS, recurrent UTI, and chronically wheelchair-bound who presents to the ED with?for increased confusion and weakness, and low sodium as reported by PCP. Pt will be admitted to the hospital for treatment and further evaluation of acute metabolic encephalopathy in the setting of UTI. Acute metabolic encephalopathy in the setting of UTI improving Urine Cx growing ESBL E.Coli Start Invanz 1gm daily Midline placed Voiding trial negative for any significant retention ID input appreciated Monitor mentation Near syncope Vasovagal attack vs orthostatic Give bolus of fluids Laxatives to decrease need of straining Hyponatremia, Acute on chronic resolved Continue home sodium chloride Follow BMP Type 1 diabetes with hyperglycemia keep modified lispro meal dosing SSI, Lantus Diabetic diet Diet Pureed diet, thin liquids Glucerna supplement t.i.d. Hx of seizure Continue Keppra GERD PPI HLD Continue statin HTN Continue lisinopril Full Code DVT Prophylaxis: Lovenox Pt will require a hospitalization overnight for treatment of?acute metabolic encephalopathy in the setting of UTI with resistant bacteria on IV Abx pending home VNA arrangements for home Abx by tomorrow Quality Stroke Does the patient have a stroke diagnosis?: No VTE Prior VTE?: No VTE Risk Level:: Medical - moderate - high VTE Device Contraindication: Treatment Not Indicated VTE Drug Contraindication: N/A - Med Ordered
--- NOTE | 2023-09-02 15:05 | MHC.CM.PN ---
[facility] [place] [facility]
--- NOTE | 2023-09-02 15:22 | MHC.CM.PN ---
Per Evy from [facility], [facility] will transport to home via [facility] van.
[2023-09-02 16:52] LABS: Glucose, Whole Blood 183 mg/dL (60-115)
[2023-09-02] MEDS: Heparin Sodium,Porcine Flush 50 UNITS, 0.9 % Sodium Chloride Flush 5 ML IVFLUSH ×2 (17:08→21:47)
[2023-09-02] MEDS: Cholecalciferol (Vitamin D3) 25 MCG TABLET 125 MCG PO (17:08)
[2023-09-02] MEDS: Ertapenem Sodium 1 GM in 0.9 % Sodium Chloride 50 ML IV (17:09)
[2023-09-02 20:51] LABS: Glucose, Whole Blood 85 mg/dL (60-115)
[2023-09-02] MEDS: Insulin Glargine,Hum.rec.anlog 100 UNIT/ML 10 ML VIAL 6 UNIT SUBCUT (21:47)
[2023-09-02] MEDS: Atorvastatin Calcium 10 MG TABLET PO (21:47)
[2023-09-02] MEDS: Enoxaparin Sodium 40 MG/0.4 ML SYRINGE SUBCUT (21:48)
[2023-09-03 07:14] VITALS: BP 140/66; PULSE 85; RESP 18; TEMP 36.7; O2SAT 97
[2023-09-03 07:43] LABS: Glucose, Whole Blood 71 mg/dL (60-115)
[2023-09-03] MEDS: lisinopriL 5 MG TABLET PO (08:46)
[2023-09-03] MEDS: levETIRAcetam 500 MG TABLET PO ×2 (08:46→16:17)
[2023-09-03] MEDS: Omeprazole 40 MG CAPSULE.DR PO (08:46)
[2023-09-03] MEDS: Ferrous Sulfate 324 MG TABLET.DR PO (08:46)
[2023-09-03] MEDS: Sodium Chloride Tab 1 GM TABLET 2 GM PO ×2 (08:46→16:17)
[2023-09-03] MEDS: Ascorbic Acid 500 MG TABLET PO ×2 (08:46→16:16)
[2023-09-03] MEDS: Cyanocobalamin (Vitamin B-12) 500 MCG TABLET PO (08:46)
[2023-09-03] MEDS: Heparin Sodium,Porcine Flush 50 UNITS, 0.9 % Sodium Chloride Flush 5 ML IVFLUSH ×3 (08:47→20:42)
[2023-09-03] MEDS: Psyllium seed 3.7 GM PACKET PO (08:47)
[2023-09-03] MEDS: 0.9 % Sodium Chloride Flush 3 ML SYRINGE IVFLUSH ×3 (08:47→20:41)
[2023-09-03] MEDS: Docusate Sodium 100 MG CAPSULE PO ×2 (08:47→20:41)
[2023-09-03] MEDS: Ertapenem Sodium 1 GM in 0.9 % Sodium Chloride 50 ML IV (08:47)
--- NOTE | 2023-09-03 10:39 | PM.DS ---
DS: Providers Provider Date of Service: 09/03/23 Date of admission: 08/28/23 22:11 Primary care physician: Bob Stephenson MD Consults: 08/28/23 22:27 Consult to Infectious Diseases Routine Consulting Provider: [facility] [facility] Reason for consultation: Recurrent UTI, 8 different abx in past 9 months 08/31/23 07:50 Consult to Infectious Diseases Routine Consulting Provider: Lyudmila Garcia Reason for consultation: ESBL E.Coli DS: Diagnosis Discharge Diagnosis (1) ESBL (extended spectrum beta-lactamase) producing bacteria infection: Status: Acute (2) Altered mental status: Status: Acute (3) Acute metabolic encephalopathy: Status: Acute (4) Urinary tract infection: Status: Acute (5) Hyponatremia: Status: Resolved (6) Syncope: Status: Acute DS: Summary Hospital Course Hospital Course: Admission note HPI Pt is a 78-year-old female with a PMH significant for?CAD, CKD, vascular dementia, type 1 diabetes, GERD, HTN, HLD, hypothyroidism, POTS, recurrent UTI, and chronically wheelchair-bound who presents to the ED with?for increased confusion and weakness, and low sodium as reported by PCP. Patient has vascular dementia at baseline and not oriented to situation and states she does not know why she is here. HPI instead taken from chart and provider review, as well as who is at bedside. states that patient has a long history of recurrent UTIs; apparently has been treated with at least 8 different antibiotics in the past 9 months. Most recently she was treated with cefpodoxime on 08/14 in then started on methenamine on 08/20. On 08/23 patient began experiencing polyuria and exhibiting increased confusion, disorientation, and being ?unreasonably nervous?. Confusion apparently waxed and waned and called PCP on Sunday 08/26 and she was sent in for lab work. At 03:15 this morning awoke to find that patient appeared increasingly confused, and had urinated all over the floor and bed. Patient has also been increasingly weak and unable to transfer from her wheelchair to the car. states he had already made his choice to come to the ED today, but was further prompted by the lab work that showed low sodium. Patient herself has no acute medical complaints. Denies chest pain/pressure, palpitations. No shortness of breath. Denies headache. No fever, chills, nausea, vomiting, abdominal pain. Denies polyuria, dysuria. In the ED pt was hypertensive up to 210/89, otherwise vitals WNL. Labs were significant for pancytopenia with WBC 4.0 and H&H 10.7/31.7 (near baseline), sodium 131, BUN 23, creatinine 1.03. Urine positive for UTI. EKG demonstrated normal sinus rhythm without evidence of significant ST elevations or depressions. Pt was treated with IVF and lisinopril. Pt will be admitted to the hospital for treatment and further evaluation of acute metabolic encephalopathy in the setting of UTI. Hospital course # Acute metabolic encephalopathy in the setting of UTI as Urine Cx growing ESBL E.Coli. Treated primarly with Ceftriaxone until cultures were confirmed then changed to Meropenem. She was evaluated by ID who recommended total of 10 days of therapy. a Midline was placed and she received Invanz 1 gm before discharge. Voiding trial negative for any significant retention # Near syncope Happened during hospital stay. likely Vasovagal attack vs orthostatic. Given bolus of fluids with good response. Laxatives to decrease need of straining. # Hyponatremia, Acute on chronic. improved with home sodium chloride. Follow BMP as outpatient. Continue Invanz for 1 more week Continue physical therapy at home Time Attestation Discharge coordination time: Greater than 30 minutes Quality: Safe Use of Opioids Does Pt have an Active Cancer Diagnosis on the Problem List?: No Quality: Stroke Does the patient have a stroke diagnosis?: No Physical Exam Vital Signs: Vital Signs: Last Vital Signs Temp 98.0 F 09/03/23 07:14 Pulse 85 09/03/23 07:14 Resp 18 09/03/23 07:14 BP 140/66 H 09/03/23 07:14 Pulse Ox 97 09/03/23 07:14 O2 Del Method Room Air 09/03/23 07:14 BMI result Body Mass Index 22.7 Const: Other: Constitutional : Awake, interactive, not in distress Neck : Normal inspection, Supple Cardiovascular : RRR, no JVP, no lower extremity edema Respiratory : good bilateral air entry, no crackles, wheezes or rhonchi Gastrointestinal: soft, lax, Normal bowel sounds, Non tender Skin : Warm, Dry, midline in place with no surrounding erythema or drainage Neurological : Alert & oriented to self and place, No focal deficit DS: Data Data Completed and Pending Completed studies during hospitalization [Text1]: Procedures Insertion of Endotracheal Airway into Trachea, Via Natural or Artificial Opening Endoscopic (10/14/21) Introduction of Vasopressor into Peripheral Vein, Percutaneous Approach (10/14/21) Respiratory Ventilation, Less than 24 Consecutive Hours (10/14/21) Labs on day of discharge: Laboratory Results - last 24 hr 09/02/23 09/02/23 09/02/23 11:29 16:34 20:41 POC Glucose 250 H 183 H 85 09/03/23 07:16 POC Glucose 71 Discharge Plan Discharge Anticipated Discharge Date/Time: 09/03/23 10:29 Patient Disposition: Home Health Service Discharge Diagnosis: ESBL E.Coli [facility]TI [facility] Bob Stephenson MD [Primary Care Provider] - 1 Week Discharge Medications: Continued sodium chloride 1 gram tablet 2 tab PO BID@0900,1700 insulin lispro [Humalog U-100 Insulin] 100 unit/mL Solution 1 sliding scale dose SUBCUT TIDAC Protocol: Insulin Correction Scale Less than or equal to 110 ---- Give (units): 0 111 to 150 Give (units): 0 151 to 200 Give (units): 0 201 to 250 Give (units): 1 251 to 300 Give (units): 2 301 to 350 Give (units): 3 Greater than 350 Give (units): 4 Call MD if Blood Glucose > : 350 Rx Instructions: TO BE GIVEN IN ADDITION TO SET DOSE omeprazole magnesium 10 mg susp,delayed release for recon 40 mg PO DAILY simvastatin 20 mg Tablet 20 mg PO BEDTIME Humalog U-100 Insulin 100 unit/mL Cartridge 4 unit SUBCUT DAILY Humalog U-100 Insulin 100 unit/mL Cartridge 3 - 4 unit subcut DAILY@1130 Rx Instructions: if BS < 150 give 3 unit if BS >/= 150 give 4 units plus the sliding scale Humalog U-100 Insulin 100 unit/mL Cartridge 0 - 2 unit subcut DAILY@1730 Rx Instructions: if BS < 150 give 0 unit if BS >/= 150 give 2 units plus the sliding scale cyanocobalamin (vitamin B-12) 500 mcg Tablet 500 mcg PO DAILY cholecalciferol (vitamin D3) [Vitamin D3] 125 mcg (5,000 unit) Tablet 125 mcg PO DAILY@1700 Culturelle 10 billion cell Capsule 1 cap PO DAILY ascorbic acid (vitamin C) 500 mg Tablet 500 mg PO BID@0900,1700 estradiol [Estrace] 0.01 % (0.1 mg/gram) Cream 0.5 appful VAGINAL MOWEFR Rx Instructions: for 14 days cranberry fruit 450 mg Tablet 450 mg PO DAILY Rx Instructions: administer with a meal lisinopril 5 mg Tablet 5 mg PO DAILY ferrous fumarate 324 mg (106 mg iron) Tablet 324 mg PO DAILY menthol-zinc oxide [Calmoseptine] 0.44-20.6 % Ointment 1 appl TOPICAL BID PRN (Reason: Skin Irritation) levetiracetam [Keppra] 500 mg tablet 500 mg PO BID@0900,1700 insulin glargine-yfgn 100 unit/mL Solution 6 unit SUBCUT BEDTIME Discontinued methenamine hippurate 1 gram Tablet 1 g PO BID@0900,1700 Hold Instructions: hold until after complete course of antibiotics and then resume fosfomycin tromethamine 3 gram packet 1 packet PO Q3D Discharge Orders: Discharge Order (Routine); Ordered 09/03/23 Ordered By: Chirag Thompson Diet: Advance to usual diet Activity on Discharge: As tolerated Stand Alone Forms: Patient Portal Discharge page Care Plan Goals: Read below Health Concerns: Read below Plan of Treatment: Read below Assessment: You were treated for a resistant bacteria called ESBL E.Coli responded to IV Meropenem as you were evaluated by infectious disease specialist. Continue Invanz for 1 more week Continue physical therapy at home
[2023-09-03 11:05] VITALS: BP 153/71; PULSE 85; RESP 20; TEMP 37.1; O2SAT 96
[2023-09-03 11:18] LABS: Glucose, Whole Blood 231 mg/dL (60-115)
[2023-09-03] MEDS: Insulin Lispro 100 UNIT/ML 3 ML VIAL SUBCUT ×4 (11:23→16:28)
[2023-09-03] MEDS: Magnesium Hydrox/Alum Hydrox 30 ML ORAL.SUSP PO (11:24)
--- NOTE | 2023-09-03 13:12 | MHC.CM.PN ---
[facility] and [facility] are still working on the one time letter of agreement for payment of IV ABT at home. is aware and CM will follow.
[2023-09-03 13:54] VITALS: BP 153/71; PULSE 85; O2SAT 96
[2023-09-03 14:58] VITALS: BP 139/65; PULSE 79; RESP 18; TEMP 36.8; O2SAT 96
--- NOTE | 2023-09-03 15:48 | HO.PM.IMPN ---
Subjective Subjective Date of Service: 09/03/23 Interval History: Seen and evaluated alert and interactive midline functioning well Denies any pain, fever or chills Review of Systems Review of Systems: Yes all other systems are reviewed and are negative Physical Exam Vital Signs: Vital Signs: Last Vital Signs Temp 98.2 F 09/03/23 14:58 Pulse 79 09/03/23 14:58 Resp 18 09/03/23 14:58 BP 139/65 09/03/23 14:58 Pulse Ox 96 09/03/23 14:58 O2 Del Method Room Air 09/03/23 14:58 BMI result Body Mass Index 22.7 Const: Other: Constitutional : Awake, interactive, not in distress Neck : Normal inspection, Supple Cardiovascular : RRR, no JVP, no lower extremity edema Respiratory : good bilateral air entry, no crackles, wheezes or rhonchi Gastrointestinal: soft, lax, Normal bowel sounds, Non tender Skin : Warm, Dry, midline in place with no surrounding erythema or drainage Neurological : Alert & oriented to self and place, No focal deficit Objective Data Active Medications Acetaminophen (Acetaminophen 325 Mg Tablet) 650 mg PO Q6H PRN PRN Reason: Pain, Mild (Pain Scale 1-3) Ascorbic Acid (Ascorbic Acid 500 Mg Tablet) 500 mg PO BID@0900,1700 [facility] Last Admin: 09/03/23 08:46 Dose: 500 mg Documented By: EAGLE Atorvastatin Calcium (Atorvastatin Calcium 10 Mg Tablet) 10 mg PO BEDTIME [facility] Last Admin: 09/02/23 21:47 Dose: 10 mg Documented By: ANA M Benzonatate (Benzonatate 100 Mg Capsule) 100 mg PO TID PRN PRN Reason: Cough Heparin Sodium (Porcine) 50 (units/ Sodium Chloride 5 ml) 0 units IVFLUSH TID [facility] Last Admin: 09/03/23 08:47 Dose: 50 unit Documented By: EAGLE Cyanocobalamin (Cyanocobalamin (Vitamin B-12) 500 Mcg Tablet) 500 mcg PO DAILY [facility] Last Admin: 09/03/23 08:46 Dose: 500 mcg Documented By: EAGLE Dextrose (Dextrose 50 % 25 Gm/50 Ml Syringe) 25 gm IVPUSH Q15M PRN; Protocol PRN Reason: per Hypoglycemia Standing Ord. Docusate Sodium (Docusate Sodium 100 Mg Capsule) 100 mg PO DAILY PRN PRN Reason: Constipation Docusate Sodium (Docusate Sodium 100 Mg Capsule) 100 mg PO BID [facility] Last Admin: 09/03/23 08:47 Dose: 100 mg Documented By: EAGLE Enoxaparin Sodium (Enoxaparin Sodium 40 Mg/0.4 Ml Syringe) 40 mg SUBCUT Q24H [facility] Last Admin: 09/02/23 21:48 Dose: 40 mg Documented By: NAA M Ferrous Sulfate (Ferrous Sulfate 324 Mg Tablet.Dr) 324 mg PO DAILY [facility] Last Admin: 09/03/23 08:46 Dose: 324 mg Documented By: EAGLE Glucose (Glucose Gel 15 Gm Gel..Gram.) 15 gm PO Q15M PRN; Protocol PRN Reason: per Hypoglycemia Standing Ord. Insulin Glargine (Insulin Glargine,Hum.Rec.Anlog 100 Unit/Ml 10 Ml Vial) 6 unit SUBCUT BEDTIME [facility] Last Admin: 09/02/23 21:47 Dose: 6 unit Documented By: ANA M Insulin Human Lispro (Insulin Lispro 100 Unit/Ml 3 Ml Vial) 0 unit SUBCUT QIDACHS [facility]; Protocol Last Admin: 09/03/23 11:23 Dose: 4 unit Documented By: EAGLE Insulin Human Lispro (Insulin Lispro 100 Unit/Ml 3 Ml Vial) 0 - 2 unit SUBCUT DAILY@1730 [facility] Last Admin: 09/02/23 17:07 Dose: 2 unit Documented By: EAGLE Insulin Human Lispro (Insulin Lispro 100 Unit/Ml 3 Ml Vial) 3 - 4 unit SUBCUT DAILY@1130 [facility] Last Admin: 09/03/23 11:24 Dose: 4 unit Documented By: EAGLE Insulin Human Lispro (Insulin Lispro 100 Unit/Ml 3 Ml Vial) 4 unit SUBCUT DAILY [facility] Last Admin: 09/03/23 07:29 Dose: Not Given Documented By: EAGLE Non-Admin Reason: No Insulin Coverage Levetiracetam (Levetiracetam 500 Mg Tablet) 500 mg PO BID@0900,1700 [facility] Last Admin: 09/03/23 08:46 Dose: 500 mg Documented By: EAGLE Lisinopril (Lisinopril 5 Mg Tablet) 5 mg PO DAILY [facility]; Protocol Last Admin: 09/03/23 08:46 Dose: 5 mg Documented By: EAGLE Melatonin (Melatonin 3 Mg Tablet) 6 mg PO BEDTIME PRN PRN Reason: Insomnia Omeprazole (Omeprazole 40 Mg Capsule.) 40 mg PO DAILY [facility] Last Admin: 09/03/23 08:46 Dose: 40 mg Documented By: EAGLE Psyllium Hydrophilic Mucilloid (Psyllium Seed 3.7 Gm Packet) 3.7 gm PO DAILY [facility] Last Admin: 09/03/23 08:47 Dose: 3.7 gm Documented By: EAGLE Sodium Chloride (0.9 % Sodium Chloride Flush 3 Ml Syringe) 3 ml IVFLUSH QSHIFT [facility] Last Admin: 09/03/23 08:47 Dose: 3 ml Documented By: EAGLE Sodium Chloride (Sodium Chloride Tab 1 Gm Tablet) 2 gm PO BID@0900,1700 [facility] Last Admin: 09/03/23 08:46 Dose: 2 gm Documented By: EAGLE Vitamin D (Cholecalciferol (Vitamin D3) 25 Mcg Tablet) 125 mcg PO DAILY@1700 [facility] Last Admin: 09/02/23 17:08 Dose: 125 mcg Documented By: EAGLE Labs 08/30/23 06:11 08/31/23 06:00 Labs: Laboratory Results - last 24 hr 09/02/23 09/02/23 09/03/23 16:34 20:41 07:16 POC Glucose 183 H 85 71 09/03/23 11:09 POC Glucose 231 H Microbiology Microbiology Results: Microbiology 08/28/23 17:53 Blood Culture - Final Blood - Venous No growth after 5 days. 08/28/23 17:53 Blood Culture - Final Blood - Venous No growth after 5 days. Assessment and Plan (1) ESBL (extended spectrum beta-lactamase) producing bacteria infection: Status: Acute (2) Acute metabolic encephalopathy: Status: Acute Plan Pt is a 78-year-old female with a PMH significant for?CAD, CKD, vascular dementia, type 1 diabetes, GERD, HTN, HLD, hypothyroidism, POTS, recurrent UTI, and chronically wheelchair-bound who presents to the ED with?for increased confusion and weakness, and low sodium as reported by PCP. Pt will be admitted to the hospital for treatment and further evaluation of acute metabolic encephalopathy in the setting of UTI. Acute metabolic encephalopathy in the setting of UTI improving Urine Cx growing ESBL E.Coli, Midline placed Invanz 1gm today Voiding trial negative for any significant retention ID input appreciated Monitor mentation Near syncope Vasovagal attack vs orthostatic Give bolus of fluids Laxatives to decrease need of straining Hyponatremia, Acute on chronic resolved Continue home sodium chloride Follow BMP Type 1 diabetes with hyperglycemia keep modified lispro meal dosing SSI, Lantus Diabetic diet Diet Pureed diet, thin liquids Glucerna supplement t.i.d. Hx of seizure Continue Keppra GERD PPI HLD Continue statin HTN Continue lisinopril Full Code DVT Prophylaxis: Lovenox Pt will require a hospitalization overnight for treatment of?acute metabolic encephalopathy in the setting of UTI with resistant bacteria on IV Abx pending home VNA arrangements for home Abx by tomorrow Quality Stroke Does the patient have a stroke diagnosis?: No VTE Prior VTE?: No VTE Risk Level:: Medical - moderate - high VTE Device Contraindication: Treatment Not Indicated VTE Drug Contraindication: N/A - Med Ordered
[2023-09-03 16:06] LABS: Glucose, Whole Blood 167 mg/dL (60-115)
[2023-09-03] MEDS: Cholecalciferol (Vitamin D3) 25 MCG TABLET 125 MCG PO (16:16)
[2023-09-03 19:19] VITALS: BP 126/58; PULSE 82; RESP 18; TEMP 36.8; O2SAT 97
[2023-09-03 19:36] LABS: Glucose, Whole Blood 84 mg/dL (60-115)
[2023-09-03] MEDS: Insulin Glargine,Hum.rec.anlog 100 UNIT/ML 10 ML VIAL 6 UNIT SUBCUT (20:41)
[2023-09-03] MEDS: Atorvastatin Calcium 10 MG TABLET PO (20:41)
[2023-09-03] MEDS: Enoxaparin Sodium 40 MG/0.4 ML SYRINGE SUBCUT (22:57)
[2023-09-04] VITALS: BP 147/65; PULSE 79; RESP 20; TEMP 36.6; O2SAT 95
[2023-09-04 03:14] VITALS: BP 150/70; PULSE 81; RESP 20; TEMP 36.3; O2SAT 95
[2023-09-04 07:14] LABS: Glucose, Whole Blood 151 mg/dL (60-115)
[2023-09-04 07:31] VITALS: BP 164/79; PULSE 85; RESP 16; TEMP 36.3; O2SAT 95
[2023-09-04] MEDS: levETIRAcetam 500 MG TABLET PO (07:47)
[2023-09-04] MEDS: Cyanocobalamin (Vitamin B-12) 500 MCG TABLET PO (07:48)
[2023-09-04] MEDS: Docusate Sodium 100 MG CAPSULE PO (07:48)
[2023-09-04] MEDS: Ferrous Sulfate 324 MG TABLET.DR PO (07:48)
[2023-09-04] MEDS: Ascorbic Acid 500 MG TABLET PO (07:49)
[2023-09-04] MEDS: Sodium Chloride Tab 1 GM TABLET 2 GM PO (07:49)
[2023-09-04] MEDS: Omeprazole 40 MG CAPSULE.DR PO (07:51)
[2023-09-04] MEDS: lisinopriL 5 MG TABLET PO (07:51)
[2023-09-04] MEDS: Insulin Lispro 100 UNIT/ML 3 ML VIAL SUBCUT ×4 (07:52→12:01)
[2023-09-04] MEDS: Psyllium seed 3.7 GM PACKET PO (07:52)
[2023-09-04] MEDS: Heparin Sodium,Porcine Flush 50 UNITS, 0.9 % Sodium Chloride Flush 5 ML IVFLUSH (07:53)
[2023-09-04] MEDS: 0.9 % Sodium Chloride Flush 3 ML SYRINGE IVFLUSH (07:53)
--- NOTE | 2023-09-04 10:25 | P.DS_ITS ---
DS: Providers Provider Date of Service: 09/04/23 Date of admission: 08/28/23 22:11 Primary care physician: Bob Stephenson MD Consults: 08/28/23 22:27 Consult to Infectious Diseases Routine Consulting Provider: [facility] Infectious Disease Reason for consultation: Recurrent UTI, 8 different abx in past 9 months 08/31/23 07:50 Consult to Infectious Diseases Routine Consulting Provider: Lyudmila Garcia Reason for consultation: ESBL E.Coli DS: Diagnosis Discharge Diagnosis (1) ESBL (extended spectrum beta-lactamase) producing bacteria infection: Status: Acute (2) Acute metabolic encephalopathy: Status: Acute DS: Summary Hospital Course Hospital Course: Admission note HPI Pt is a 78-year-old female with a PMH significant for?CAD, CKD, vascular dementia, type 1 diabetes, GERD, HTN, HLD, hypothyroidism, POTS, recurrent UTI, and chronically wheelchair-bound who presents to the ED with?for increased confusion and weakness, and low sodium as reported by PCP. Patient has vascular dementia at baseline and not oriented to situation and states she does not know why she is here. HPI instead taken from chart and provider review, as well as who is at bedside. states that patient has a long history of recurrent UTIs; apparently has been treated with at least 8 different antibiotics in the past 9 months. Most recently she was treated with cefpodoxime on 08/14 in then started on methenamine on 08/20. On 08/23 patient began experiencing polyuria and exhibiting increased confusion, disorientation, and being ?unreasonably nervous?. Confusion apparently waxed and waned and called PCP on Sunday 08/26 and she was sent in for lab work. At 03:15 this morning awoke to find that patient appeared increasingly confused, and had urinated all over the floor and bed. Patient has also been increasingly weak and unable to transfer from her wheelchair to the car. states he had already made his choice to come to the ED today, but was further prompted by the lab work that showed low sodium. Patient herself has no acute medical complaints. Denies chest pain/pressure, palpitations. No shortness of breath. Denies headache. No fever, chills, nausea, vomiting, abdominal pain. Denies polyuria, dysuria. In the ED pt was hypertensive up to 210/89, otherwise vitals WNL. Labs were significant for pancytopenia with WBC 4.0 and H&H 10.7/31.7 (near baseline), sodium 131, BUN 23, creatinine 1.03. Urine positive for UTI. EKG demonstrated normal sinus rhythm without evidence of significant ST elevations or depressions. Pt was treated with IVF and lisinopril. Pt will be admitted to the hospital for treatment and further evaluation of acute metabolic encephalopathy in the setting of UTI. Hospital course # Acute metabolic encephalopathy in the setting of UTI as Urine Cx growing ESBL E.Coli. Treated primarly with Ceftriaxone until cultures were confirmed then changed to Meropenem. She was evaluated by ID who recommended total of 10 days of therapy. a Midline was placed and she received Invanz 1 gm before discharge. Voiding trial negative for any significant retention # Near syncope Happened during hospital stay. likely Vasovagal attack vs orthostatic. Given bolus of fluids with good response. Laxatives to decrease need of straining. # Hyponatremia, Acute on chronic. improved with home sodium chloride. Follow BMP as outpatient. Continue Invanz for 1 more week Continue physical therapy at home Time Attestation Discharge coordination time: Greater than 30 minutes Quality: Safe Use of Opioids Does Pt have an Active Cancer Diagnosis on the Problem List?: No Quality: Stroke Does the patient have a stroke diagnosis?: No Physical Exam Vital Signs: Vital Signs: Last Vital Signs Temp 97.4 F 09/04/23 07:31 Pulse 85 09/04/23 07:31 Resp 16 09/04/23 07:31 BP 164/79 H 09/04/23 07:31 Pulse Ox 95 09/04/23 07:31 O2 Del Method Room Air 09/04/23 07:31 BMI result Body Mass Index 22.7 Const: Other: Constitutional : Awake, interactive, not in distress Neck : Normal inspection, Supple Cardiovascular : RRR, no JVP, no lower extremity edema Respiratory : good bilateral air entry, no crackles, wheezes or rhonchi Gastrointestinal: soft, lax, Normal bowel sounds, Non tender Skin : Warm, Dry, midline in place with no surrounding erythema or drainage Neurological : Alert & oriented to self and place, No focal deficit DS: Data Data Completed and Pending Completed studies during hospitalization [Text1]: Procedures Insertion of Endotracheal Airway into Trachea, Via Natural or Artificial Opening Endoscopic (10/14/21) Introduction of Vasopressor into Peripheral Vein, Percutaneous Approach (10/14/21) Respiratory Ventilation, Less than 24 Consecutive Hours (10/14/21) Labs on day of discharge: Laboratory Results - last 24 hr 09/03/23 09/03/23 09/03/23 11:09 15:54 19:17 POC Glucose 231 H 167 H 84 09/04/23 07:11 POC Glucose 151 H Discharge Plan Discharge Anticipated Discharge Date/Time: 09/04/23 10:24 Patient Disposition: Home Health Service Discharge Diagnosis: ESBL E.Coli UTI Referrals: [facility] [Other] - 1 Week Bob Stephenson MD [Primary Care Provider] - 1 Week Discharge Medications: Continued sodium chloride 1 gram tablet 2 tab PO BID@0900,1700 insulin lispro [Humalog U-100 Insulin] 100 unit/mL Solution 1 sliding scale dose SUBCUT TIDAC Protocol: Insulin Correction Scale Less than or equal to 110 ---- Give (units): 0 111 to 150 Give (units): 0 151 to 200 Give (units): 0 201 to 250 Give (units): 1 251 to 300 Give (units): 2 301 to 350 Give (units): 3 Greater than 350 Give (units): 4 Call MD if Blood Glucose > : 350 Rx Instructions: TO BE GIVEN IN ADDITION TO SET DOSE omeprazole magnesium 10 mg susp,delayed release for recon 40 mg PO DAILY simvastatin 20 mg Tablet 20 mg PO BEDTIME Humalog U-100 Insulin 100 unit/mL Cartridge 4 unit SUBCUT DAILY Humalog U-100 Insulin 100 unit/mL Cartridge 3 - 4 unit subcut DAILY@1130 Rx Instructions: if BS < 150 give 3 unit if BS >/= 150 give 4 units plus the sliding scale Humalog U-100 Insulin 100 unit/mL Cartridge 0 - 2 unit subcut DAILY@1730 Rx Instructions: if BS < 150 give 0 unit if BS >/= 150 give 2 units plus the sliding scale cyanocobalamin (vitamin B-12) 500 mcg Tablet 500 mcg PO DAILY cholecalciferol (vitamin D3) [Vitamin D3] 125 mcg (5,000 unit) Tablet 125 mcg PO DAILY@1700 Culturelle 10 billion cell Capsule 1 cap PO DAILY ascorbic acid (vitamin C) 500 mg Tablet 500 mg PO BID@0900,1700 estradiol [Estrace] 0.01 % (0.1 mg/gram) Cream 0.5 appful VAGINAL MOWEFR Rx Instructions: for 14 days cranberry fruit 450 mg Tablet 450 mg PO DAILY Rx Instructions: administer with a meal lisinopril 5 mg Tablet 5 mg PO DAILY ferrous fumarate 324 mg (106 mg iron) Tablet 324 mg PO DAILY menthol-zinc oxide [Calmoseptine] 0.44-20.6 % Ointment 1 appl TOPICAL BID PRN (Reason: Skin Irritation) levetiracetam [Keppra] 500 mg tablet 500 mg PO BID@0900,1700 insulin glargine-yfgn 100 unit/mL Solution 6 unit SUBCUT BEDTIME Discontinued methenamine hippurate 1 gram Tablet 1 g PO BID@0900,1700 Hold Instructions: hold until after complete course of antibiotics and then resume fosfomycin tromethamine 3 gram packet 1 packet PO Q3D Discharge Orders: Discharge Order (Routine); Ordered 09/03/23 Ordered By: Chirag Thompson Diet: Advance to usual diet Activity on Discharge: As tolerated Stand Alone Forms: Patient Portal Discharge page Care Plan Goals: Read below Health Concerns: Read below Plan of Treatment: Read below Assessment: You were treated for a resistant bacteria called ESBL E.Coli responded to IV Meropenem as you were evaluated by infectious disease specialist. Continue Invanz for 1 more week Continue physical therapy at home
--- NOTE | 2023-09-04 10:32 | MHC.CM.PN ---
Patient has been medically cleared for dc to home today, with services. [facility] will be providing home PT/RN & Home Infusion respectfully . Evy from [facility] is arranging [facility] van transport with a goal of dc at 1 PM today. Evy will be informing /HCP/Angel of the dc details. IMM addressed on 09/02/2023.
[2023-09-04] MEDS: Ertapenem Sodium 1 GM in 0.9 % Sodium Chloride 50 ML IV (11:24)
[2023-09-04 11:36] LABS: Glucose, Whole Blood 171 mg/dL (60-115)
== END 2023-09-04 13:18 | disposition home health service (06) | DRG 689 ==
LOC: HO.ED 16:39 → HO.EDOVER 22:38 → HO.IMC 08-29 01:20
PROVIDERS: Student in an Organized Health Care Education/Training Program; Admitting Provider Student in an Organized Health Care Education/Training Program; Emergency Provider Internal Medicine; PCP Internal Medicine Rheumatology; Visit Provider Internal Medicine
PROC: 05HB33Z Insertion of Infusion Device into Right Basilic Vein, Percutaneous Approach (ICD-10-PCS; principal; 2023-09-02 08:30)
DX: N39.0 Urinary tract infection, site not specified (principal); G93.41 Metabolic encephalopathy; E87.1 Hypo-osmolality and hyponatremia; Z16.12 Extended spectrum beta lactamase (ESBL) resistance; R33.9 Retention of urine, unspecified; E10.65 Type 1 diabetes mellitus with hyperglycemia; R55 Syncope and collapse; K21.9 Gastro-esophageal reflux disease without esophagitis; B96.20 Unspecified Escherichia coli [E. coli] as the cause of diseases classified elsewhere; I10 Essential (primary) hypertension; E78.5 Hyperlipidemia, unspecified; I25.10 Atherosclerotic heart disease of native coronary artery without angina pectoris; F01.50 Vascular dementia, unspecified severity, without behavioral disturbance, psychotic disturbance, mood disturbance, and anxiety; Z99.3 Dependence on wheelchair; Z87.440 Personal history of urinary (tract) infections; Z79.899 Other long term (current) drug therapy
CPT/HCPCS: 36410; 36415; 80048; 80053; 81001; 82947; 83605; 83735; 83930; 83935; 84300; 85025; 85027; 87040; 87086; 87088; 87186; 93005; 97162; 97530; 99285; C1751; J0696; J1335; J1642; J1650; J2185

== ENCOUNTER → 2023-08-28 16:44 | Outpatient (BNV) | payer OTHER, SELFPAY | PROVIDERS: Admitting Provider Student in an Organized Health Care Education/Training Program; Emergency Provider Internal Medicine; Visit Provider Internal Medicine Cardiovascular Disease | DX: R94.31 Abnormal electrocardiogram [ECG] [EKG] (principal) | CPT/HCPCS: 93010 ==

== ENCOUNTER → 2023-08-28 22:11 | Outpatient (BNV) | payer OTHER, SELFPAY | PROVIDERS: Admitting Provider Student in an Organized Health Care Education/Training Program; Emergency Provider Internal Medicine; Visit Provider Internal Medicine | DX: R41.82 Altered mental status, unspecified (principal); G93.41 Metabolic encephalopathy; N39.0 Urinary tract infection, site not specified | CPT/HCPCS: 99222 ==

== ENCOUNTER → 2023-08-28 22:11 | Outpatient (BNV) | payer OTHER, SELFPAY | PROVIDERS: Admitting Provider Student in an Organized Health Care Education/Training Program; Emergency Provider Internal Medicine; Visit Provider Student in an Organized Health Care Education/Training Program | DX: A49.9 Bacterial infection, unspecified (principal); Z16.12 Extended spectrum beta lactamase (ESBL) resistance; G93.41 Metabolic encephalopathy | CPT/HCPCS: 99223; 99232; 99233; 99239 ==

== ENCOUNTER 2023-10-06 13:29 | Emergency (ER) | payer OTHER, SELFPAY ==
--- NOTE | ~2023-10-06 | CT_ITS ---
EXAMINATION: CT ABDOMEN AND PELVIS WITH CONTRAST CLINICAL INFORMATION: Abdominal pain and vomiting with question of small bowel obstruction COMPARISON: Chest radiograph 03/25/2023 TECHNIQUE: Multidetector volumetric images were obtained from the superior aspect of the liver through the pubic symphysis following administration 85 mL of Omnipaque 350 intravenous contrast. Sagittal and coronal reformatted images were obtained on the technologist's workstation. Oral contrast: No This CT examination was performed using dose optimization techniques as appropriate, variously including the following: *Automated exposure control *Adjustment of mA and/or kV according to patient size (this includes techniques or standardized protocols for targeted exams where dose is matched to indication/reason for exam; i.e. extremities or head) *Use of iterative reconstruction technique DLP: 461 mGy-cm FINDINGS: LUNG BASES: Clustered nodules are present at the right lung base with at least 4 measuring about 8 mm in size. There is associated bronchial wall thickening and some traction bronchiectasis with some pleural-based atelectasis. Some smaller micronodules are seen. There is scarring in tree-in-bud densities seen in the right middle lobe and to a lesser extent the lingula. Daly images of all these abnormalities have been saved. No pleural effusions. LIVER, GALLBLADDER, AND BILIARY TREE: The liver is normal in size, shape, and attenuation. Tiny hypodensity seen just beneath the dome of the hemidiaphragm measuring 3 mm consistent with a tiny cyst. There is mild prominence of intrahepatic bile ducts. The gallbladder is distended and contains innumerable small calculi. No focal hepatic lesion or biliary ductal dilatation is present. The gallbladder is unremarkable with no evidence of radiopaque gallstones, gallbladder wall thickening, or obvious pericholecystic inflammatory changes. PANCREAS: Atrophic SPLEEN: Unremarkable. ADRENAL GLANDS: Unremarkable. KIDNEYS AND URETERS: The kidneys are normal in size, shape, and attenuation. There is a 5 x 8 mm nonobstructing left lower pole renal calculus that measures 1281 Hounsfield units and is 5.7 cm from the posterior axillary line. There are 2 smaller punctate calcifications at the lower pole of the right kidney with the largest measuring only 2 mm in size. There is no hydronephrosis, hydroureter, or ureteral calculi seen. No perinephric stranding. No renal masses. BLADDER: The bladder is distended but otherwise unremarkable. GASTROINTESTINAL TRACT: A large stool burden is present throughout the colon. The small and large bowel are otherwise unremarkable. There is no bowel obstruction. The appendix is not seen but there is no evidence of appendicitis evidence of appendicitis. ABDOMINAL WALL: No significant hernia is appreciated. Large calcifications are present in the right buttock, possibly from prior trauma or injections. LYMPH NODES: No retroperitoneal lymphadenopathy. VASCULAR: Marked calcific atherosclerotic changes are present in the aorta and iliofemoral vessels along with branch vessels. There is no evidence of an abdominal aortic aneurysm. PELVIC VISCERA: There is an enlarged retroverted uterus present with calcifications consistent with fibroids. In abnormal adnexal mass or free intraperitoneal fluid is not present. OSSEOUS STRUCTURES: Marked degenerative changes are present in the spine most marked from L3 through S1. No bony destructive lesions are seen. There is a scoliosis convex to the left. CT/CT abdomen pelvis w IV con IMPRESSION: 1. A cause for the patient's abdominal pain and vomiting has not been found. There is no evidence of bowel obstruction. 2. Clustered nodules at the right lung base with associated bronchial wall thickening and traction bronchiectasis. Findings are most likely inflammatory. 3. Cholelithiasis without cholecystitis. 4. Bilateral nonobstructing renal calculi. 5. Large stool burden in the colon. 6. Enlarged fibroid uterus. 7. Marked degenerative changes in the spine. According to the UPDATED 2017 Fleischner Society recommendations, the advised follow-up imaging for multiple solid nodules measuring up to 6-8 mm is follow-up CT at 3 to 6 months. In high-risk patients, subsequent CT follow-up at 18 to 24 months is recommended. In low-risk patients, subsequent CT follow-up at 18 to 24 months is optional.
[2023-10-06 13:43] VITALS: BP 142/98; BP 177/84; PULSE 103; PULSE 99; RESP 16; TEMP 36.6; O2SAT 97; BMI 20.4
--- NOTE | 2023-10-06 14:19 | ECG_ITS ---
Test Reason : WEAKNESS, TACHY Blood Pressure : / mmHG Vent. Rate : 103 BPM Atrial Rate : 103 BPM P-R Int : 140 ms QRS Dur : 084 ms QT Int : 376 ms P-R-T Axes : 063 073 089 degrees QTc Int : 492 ms Sinus tachycardia Otherwise normal ECG When compared with ECG of 28-AUG-2023 18:01, No significant change was found Referred By: Mandie Currie Electronically Signed By:Acosta Meehan
[2023-10-06] MEDS: 0.9 % Sodium Chloride 1,000 ML 999 ML IV ×2 (14:41→17:51)
[2023-10-06] MEDS: ondansetron HCL 4 MG/2 ML VIAL IVPUSH (14:46)
[2023-10-06 14:47] LABS: MANUAL DIFF FLAG NO
--- NOTE | 2023-10-06 14:47 | ED_ITS ---
HPI - Nausea/Vomiting/Diarrhea General Chief complaint: Nausea/Vomiting/Diarrhea Stated complaint: VOMITING Time Seen by Provider: 10/06/23 13:58 Source: patient, family and EMS Mode of arrival: EMS Limitations: altered mental status History of Present Illness HPI Narrative: 78-year-old female with a history of dementia, insulin-dependent diabetes, GERD, seizure disorder, recent diagnosis of C diff currently on day 7 of metronidazole presents to the ER with concern of vomiting. Per family the patient has had 4 days of constipation despite several rounds of Dulcolax. She has also had several episodes of vomiting. No reports of pain. No fevers, chills, urinary symptoms. Associated nausea: Yes Related Data Home Medications Medication Instructions Recorded Confirmed Lactobacillus rhamnosus GG 10 1 cap PO DAILY 10/14/21 08/28/23 billion cell capsule (Culturelle) cholecalciferol (vitamin D3) 125 125 mcg PO DAILY@1700 10/14/21 08/28/23 mcg (5,000 unit) tablet (Vitamin D3) cyanocobalamin (vitamin B-12) 500 500 mcg PO DAILY 10/14/21 08/28/23 mcg tablet insulin lispro 100 unit/mL 0 - 2 unit subcut DAILY@1730 10/14/21 08/28/23 subcutaneous cartridge (Humalog U-100 Insulin) insulin lispro 100 unit/mL 3 - 4 unit subcut DAILY@1130 10/14/21 08/28/23 subcutaneous cartridge (Humalog U-100 Insulin) insulin lispro 100 unit/mL 4 unit subcut DAILY 10/14/21 08/28/23 subcutaneous cartridge (Humalog U-100 Insulin) simvastatin 20 mg tablet 20 mg PO BEDTIME 10/14/21 08/28/23 sodium chloride 1 gram tablet 2 tab PO BID@0900,1700 01/20/22 08/28/23 insulin lispro 100 unit/mL 1 sliding scale dose subcut TIDAC 03/12/22 08/28/23 subcutaneous solution (Humalog U-100 Insulin) omeprazole magnesium 10 mg oral 40 mg PO DAILY 03/12/22 08/28/23 suspension,delayed release ascorbic acid (vitamin C) 500 mg 500 mg PO BID@0900,1700 03/25/23 08/28/23 tablet cranberry fruit 450 mg tablet 450 mg PO DAILY 03/25/23 08/28/23 estradiol 0.01% (0.1 mg/gram) 0.5 appful vaginal MOWEFR 03/25/23 08/28/23 vaginal cream (Estrace) lisinopril 5 mg tablet 5 mg PO DAILY 03/25/23 08/28/23 ferrous fumarate 324 mg (106 mg 324 mg PO DAILY 08/28/23 08/28/23 iron) tablet insulin glargine-yfgn 100 unit/mL 6 unit subcut BEDTIME 08/28/23 08/28/23 subcutaneous solution levetiracetam 500 mg tablet 500 mg PO BID@0900,1700 08/28/23 08/28/23 (Keppra) menthol 0.44 %-zinc oxide 20.6 % 1 appl topical BID PRN Skin 08/28/23 08/28/23 topical ointment (Calmoseptine) Irritation Allergies Allergy/AdvReac Type Severity Reaction Status Date / Time Sulfa (Sulfonamide Allergy Severe RASH/HIVES, Verified 10/06/23 13:43 Antibiotics) hives [SULFA (SULFONAMIDE ANTIBIOTICS)] insulin aspart Allergy Unknown HIVES Verified 10/06/23 13:43 [From NOVOLOG U-100 INSULIN ASPART] levofloxacin [From LEVAQUIN] AdvReac Intermediate BLOOD Verified 10/06/23 13:43 SUGAR DROPS Review of Systems 2 Review of Systems: Yes all other systems are reviewed and are negative Constitutional: Constitutional: Reports no additional constitutional complaints, Denies body ache(s), Denies chills, Denies fever(s), Denies headache(s) and Denies weakness Eyes: Eyes: Reports no additional eye complaints and Denies change in vision ENT: Reports system reviewed and no additional complaints, except as documented, Denies dizziness, Denies headache(s), Denies nasal congestion, Denies nasal discharge and Denies neck pain Cardiovascular: Cardiovascular: Reports no additional cardiovascular complaints, Denies chest pain, Denies leg edema and Denies dyspnea Respiratory: Respiratory: Reports no additional respiratory complaints, Denies cough and Denies dyspnea Gastrointestinal: Gastrointestinal: Reports no additional gastrointestinal complaints, Denies abdominal pain, Reports constipation, Denies diarrhea, Reports nausea and Reports vomiting Genitourinary: Genitourinary: Reports no additional female genitourinary complaints and Denies urinary incontinence Musculoskeletal: Musculoskeletal: Reports no additional musculoskeletal complaints, Denies back pain, Denies arthralgias, Denies joint swelling, Denies neck pain, Denies numbness and Denies tingling Integumentary/Breasts: Skin/Breast: Reports system reviewed and no additional complaints, except as docu and Denies rash Neurologic: Reports system reviewed and no additional complaints, except as documented, Reports confusion, Denies dizziness, Denies headache(s), Denies numbness, Denies tingling and Denies weakness Psychiatric: Psychiatric: Reports confusion PMFSH Past Medical History Attestation statement: The following information was validated with the patient. Source: old records reviewed and nursing notes reviewed Onset Date is defined in the Problem List Problems that require an onset date and time if occurred within 24 hrs of arrival to the ED Aortic Dissection and Rupture; Neurologic impairment; Cardiopulmonary Arrest; Endotracheal Intubation; Insertion or Replacement of Mechanical Circulatory Assist Device Medical History Esophageal dilatation PPD positive Hyperkalemia Glaucoma Retinopathy QT prolongation POTS (postural orthostatic tachycardia syndrome) Orthostatic hypotension Neuropathy Hypothyroid Hypercholesterolemia HTN (hypertension) GERD (gastroesophageal reflux disease) DM type 1 (diabetes mellitus, type 1) Dementia Vitamin B12 deficiency CKD (chronic kidney disease), stage III CAD (coronary artery disease) COVID-19 Social History Social History Household Members: Spouse Housing: House Do you presently have visiting nurse or other home services: No Unable to assess alcohol history related to: Unable to respond Alcohol intake: never Comment: transfer to [facility] for endoscopy Patient Tobacco Use Status: Never used Tobacco Smoked in Last 30 Days: No e-Cigarette/Vaping Use: Never Used Second Hand Smoke Exposure: No Use of substances other than those prescribed or required for medical reasons: No Advance Directives: Yes Advance Directives on File: Yes Advance Directives Date on File: 03/26/23 service: No Current occupational status: retired Physical Exam 2 Vital Signs: Vital Signs: Last Vital Signs Temp 97.8 F 10/06/23 13:43 Pulse 99 10/06/23 13:43 Resp 16 10/06/23 13:43 BP 177/84 H 10/06/23 13:43 Pulse Ox 97 10/06/23 13:43 O2 Del Method Room Air 10/06/23 13:43 BMI result Body Mass Index 20.4 Const: General: alert and confusion Orientation/consciousness: confusion Limitations: no limitations HEENT: Head: Yes normal to inspection Ears: hearing grossly normal bilaterally General nose exam: Normal external nose present Face and sinus: Yes normal facial exam Mouth: Normal oral and palatal mucosa present Throat: Yes posterior oropharynx normal Eyes: General: appearance normal, both eyes and all related structures P upils: Equal, round and reactive pupils present Neck: Neck: Yes normal visual inspection Chest: Chest palpation & inspection: normal inspection of the chest Resp: Effort & Inspection: normal respiratory effort Auscultation: clear to auscultation bilaterally Cardio: Rate: regular rate Rhythm: regular rhythm Peripheral pulses: P eripheral pulses 2+ throughout GI: Inspection: Yes normal to inspection Palpation (GI): Soft to palpation and nontender Auscultation: normal bowel sounds Back/Spine/Pelvis: Thoracic/Lumbar Spine: thoracic and lumbar spine normal to inspection Skin: General skin exam: no rashes or lesions noted Neuro: General: moves all extremities, no focal motor deficits, normal sensation to monofilament and confusion Cranial nerves: Yes Equal, round and reactive pupils present Motor exam (neuro): 5/5 motor strength present throughout Extrem: General: Yes normal to inspection Course Course Course Narrative: 1629-Sign out to Chuck TAMEZ pending CT A/P Medications Administered Discontinued Medications Generic Name Dose Route Start Last Admin Trade Name Freq PRN Reason Stop Dose Admin Sodium Chloride 1,000 mls @ 999 mls/hr 10/06/23 14:20 10/06/23 16:15 Ns IV 10/06/23 15:20 Infused .Q1H1M STA Infusion Ondansetron HCl 4 mg 10/06/23 14:20 10/06/23 14:46 Ondansetron Hcl 4 Mg/2 Ml Vial IVPUSH 10/06/23 14:21 4 mg ONCE ONE Administration Medical Decision Making Medical Decision Making [facility] Narrative: 78-year-old female with a history of dementia, insulin-dependent diabetes, GERD, seizure disorder, recent diagnosis of C diff currently on day 7 of metronidazole presents to the ER with concern of vomiting. Per family the patient has had 4 days of constipation despite several rounds of Dulcolax. She has also had several episodes of vomiting. No reports of pain. No fevers, chills, urinary symptoms. No focal abdominal pain. Per patient not a good historian d/t underlying dementia. Will need labs, UA, EKG, CT A/P WIll give IVF, antiemetic Differential Diagnosis Differential Diagnoses: The differential diagnosis associated with the presentation includes SBO, diverticulitis Admission/Observation Consideration of admission/observation: Escalation of care including admission/observation considered Lab Data MDM Lab Attestation statement: I reviewed the patient's lab results. 10/06/23 14:40 10/06/23 14:40 Labs: Lab Results 10/06/23 Range/Units 14:40 WBC 8.3 (4.8-10.8) X10*3/uL RBC 3.73 L (4.20-5.50) X10*6/uL Hgb 12.5 (12.0-16.0) g/dl Hct 37.5 (37.0-47.0) % MCV 100.5 H (80.0-98.0) fL MCH 33.5 H (27.0-33.0) pg MCHC 33.3 (31.0-35.0) g/dl RDW 15.1 (11.0-16.0) % Plt Count 350 (160-400) X10*3/uL MPV 10.7 (9.4-12.3) fL Immature Gran % (Auto) 0.4 (0.0-0.4) % Neut % (Auto) 80.7 H (45-73) % Lymph % (Auto) 9.4 L (20-40) % Kidder % (Auto) 8.3 (2-11) % Eos % (Auto) 0.6 (0-4) % Baso % (Auto) 0.6 (0-2) % Lymph # (Auto) 0.8 L (1.2-4.9) X10*3/uL Kidder # (Auto) 0.7 (0.1-1.2) X10*3/uL Eos # (Auto) 0.1 (0.0-0.4) X10*3/uL Baso # (Auto) 0.1 (0.0-0.2) X10*3/uL Abs Immat Gran (auto) 0.03 (0.00-0.03) X10*3/uL Absolute Neuts (auto) 6.7 (2.0-8.3) x10*3/uL Absolute Nucleated RBC 0.000 (0.0-0.012) X10*3/uL Nucleated RBC % (auto) 0.0 (0.0-0.2) /100WBC Lactic Acid 1.5 (0.5-2.0) mmol/L Troponin I High Sens 3.2 (<3.5-17.0) ng/L COVID-19 (CRISTINO) Negative (Negative) COVID-19 Clin Com See Note Influenza Type A (YANA) Negative (Negative) Influenza Type B (YANA) Negative (Negative) Influenza A & B Note See Note Independent Interpretation I performed an independent interpretation of an: CT Scan Radiology Impression Discussion of test interpretation with radiology: I have reviewed the radiologist's reading. Independent Historian Clinical information obtained from an independent historian. History obtained from or confirmed by: Spouse and EMS Discharge Plan Discharge Clinical Impression: Vomiting Patient Disposition: Still a Patient Prescriptions: No Action sodium chloride 1 gram tablet 2 tab PO BID@0900,1700 insulin lispro [Humalog U-100 Insulin] 100 unit/mL Solution 1 sliding scale dose SUBCUT TIDAC Protocol: Insulin Correction Scale Less than or equal to 110 ---- Give (units): 0 111 to 150 Give (units): 0 151 to 200 Give (units): 0 201 to 250 Give (units): 1 251 to 300 Give (units): 2 301 to 350 Give (units): 3 Greater than 350 Give (units): 4 Call MD if Blood Glucose > : 350 Rx Instructions: TO BE GIVEN IN ADDITION TO SET DOSE omeprazole magnesium 10 mg susp,delayed release for recon 40 mg PO DAILY simvastatin 20 mg Tablet 20 mg PO BEDTIME Humalog U-100 Insulin 100 unit/mL Cartridge 4 unit SUBCUT DAILY Humalog U-100 Insulin 100 unit/mL Cartridge 3 - 4 unit subcut DAILY@1130 Rx Instructions: if BS < 150 give 3 unit if BS >/= 150 give 4 units plus the sliding scale Humalog U-100 Insulin 100 unit/mL Cartridge 0 - 2 unit subcut DAILY@1730 Rx Instructions: if BS < 150 give 0 unit if BS >/= 150 give 2 units plus the sliding scale cyanocobalamin (vitamin B-12) 500 mcg Tablet 500 mcg PO DAILY cholecalciferol (vitamin D3) [Vitamin D3] 125 mcg (5,000 unit) Tablet 125 mcg PO DAILY@1700 Culturelle 10 billion cell Capsule 1 cap PO DAILY ascorbic acid (vitamin C) 500 mg Tablet 500 mg PO BID@0900,1700 estradiol [Estrace] 0.01 % (0.1 mg/gram) Cream 0.5 appful VAGINAL MOWEFR Rx Instructions: for 14 days cranberry fruit 450 mg Tablet 450 mg PO DAILY Rx Instructions: administer with a meal lisinopril 5 mg Tablet 5 mg PO DAILY ferrous fumarate 324 mg (106 mg iron) Tablet 324 mg PO DAILY menthol-zinc oxide [Calmoseptine] 0.44-20.6 % Ointment 1 appl TOPICAL BID PRN (Reason: Skin Irritation) levetiracetam [Keppra] 500 mg tablet 500 mg PO BID@0900,1700 insulin glargine-yfgn 100 unit/mL Solution 6 unit SUBCUT BEDTIME
--- NOTE | 2023-10-06 14:47 | PC.NURSE ---
20gIV placed in the left forearm - labs obtained/sent to lab. medication/IVF administered per provider order. pt resting comfortably in no apparent distress. respirations remain even and unlabored. bedside for support. call joshi placed within reach.
[2023-10-06 14:48] LABS: Basophils Absolute Auto 0.1 X10*3/uL (0.0-0.2); Basophils Percent Auto 0.6 % (0-2); Eosinophils Absolute Auto 0.1 X10*3/uL (0.0-0.4); Eosinophils Percent Auto 0.6 % (0-4); Hematocrit 37.5 % (37.0-47.0); Hemoglobin 12.5 g/dl (12.0-16.0); Imm Gran Abs Auto 0.03 X10*3/uL (0.00-0.03); Imm Gran Pct Auto 0.4 % (0.0-0.4); Lymphocytes Absolute Auto 0.8 X10*3/uL (1.2-4.9); Lymphocytes Percent Auto 9.4 % (20-40); Mean Corpuscular HGB Conc 33.3 g/dl (31.0-35.0); Mean Corpuscular Hemoglobin 33.5 pg (27.0-33.0); Mean Corpuscular Volume 100.5 fL (80.0-98.0); Mean Platelet Volume 10.7 fL (9.4-12.3); Monocytes Absolute Auto 0.7 X10*3/uL (0.1-1.2); Monocytes Percent Auto 8.3 % (2-11); Neutrophils Absolute Auto 6.7 x10*3/uL (2.0-8.3); Neutrophils Percent Auto 80.7 % (45-73); Platelet Count 350 X10*3/uL (160-400); Red Blood Count 3.73 X10*6/uL (4.20-5.50); Red Cell Distribution Width 15.1 % (11.0-16.0); White Blood Count 8.3 X10*3/uL (4.8-10.8)
[2023-10-06 14:57] LABS: Lactic Acid 1.5 mmol/L (0.5-2.0)
[2023-10-06 15:03] LABS: IDNOW Serial# 08D9AD1C; Influenza A Negative (Negative); Influenza B2 Negative (Negative)
[2023-10-06 15:04] LABS: COVID-19 Test Negative (Negative); IDNOW Serial# 152EDE1D
[2023-10-06 15:10] LABS: Troponin-I High Sensitivity 3.2 ng/L (<3.5-17.0)
[2023-10-06 16:17] VITALS: BP 159/78; PULSE 105; RESP 20; TEMP 36.7; O2SAT 95
--- NOTE | 2023-10-06 16:17 | PC.NURSE ---
vss and up to date at this time. pt remains sinus tachy on the hall monitor. pt still waiting to go to CT at this time. purewick placed so urine sample can be obtained. respirations remain even and unlabored. bedside. call joshi placed within reach.
[2023-10-06 17:36] LABS: Glucose, Whole Blood 297 mg/dL (60-115)
[2023-10-06 17:43] LABS: Alanine Aminotransferase 6 U/L (0-31); Albumin Level 3.4 g/dL (3.5-5.0); Alkaline Phosphatase 88 U/L (39-117); Anion Gap 16 (12-20); Aspartate Amino Transferase 9 U/L (5-31); Bilirubin Direct 0.1 mg/dL (0.0-0.5); Bilirubin Total 0.4 mg/dL (0.0-1.0); Blood Urea Nitrogen 28 mg/dL (9-16); Calcium 8.8 mg/dL (8.4-10.2); Carbon Dioxide 24 mmol/L (22-29); Chloride 103 mmol/L (96-108); Creatinine Clr Calc Pharmacy 42.8; Estimated Glomerular Filt Rate 54; Glucose Random 328 mg/dL (60-115); Lipase 9 U/L (8-78); Magnesium 1.9 mg/dL (1.6-2.6); Potassium 4.9 mmol/L (3.3-5.1); Sodium 138 mmol/L (135-145)
--- NOTE | 2023-10-06 17:58 | PC.NURSE ---
provider aware of pt's POC. IVF administered per provider order. pt to CT at this time.
[2023-10-06] MEDS: iohexoL 350 MG/ML 100 ML INFUS..BTL IV (18:11)
--- NOTE | 2023-10-06 18:35 | PC.NURSE ---
this RN attempted to straight catheterize patient twice with health information systems technician Jackelyn w/ no success. pt's vagina seemingly swollen/red/tender to the touch. unable to obtain urine sample at this time. bladder scan displayed 389ml. will notify provider.
--- NOTE | 2023-10-06 19:36 | PC.NURSE ---
Urine specimen collected via straight catheterizing, patient tolerated procedure well, 375 ML of cloudy, foul selling urine drained into cath bag. Patient angelita vaginal skin irritated and edematous. Angelita care provided, pure wick placed and connected to wall suction.
[2023-10-06 19:40] LABS: Appearance Urine Turbid; Color Urine Yellow; Glucose Urine UA 500 mg/dL (Negative); Leukocyte Esterase Urine Large (3+) (Negative); Nitrite Urine Negative (Negative); Specific Gravity - Urine >= 1.030 (1.005-1.025); UMIC TRIGGER UACC YES; Urine Blood Moderate (2+) (Negative); Urine Ketones 15 mg/dL (Negative); Urine Protein 100 (2+) mg/dL (Neg-Trace)
[2023-10-06 19:53] LABS: Bacteria Urine 4+ (None Seen); Hyaline Casts Urine 0-2 /LPF (0-2); Squamous Epithelial Cell Urine 0-2 /HPF (0-2); UACC Culture Trigger YES; WBC Urine >50 /HPF (0-5)
[2023-10-06 20:29] LABS: Troponin-I High Sensitivity 4.2 ng/L (<3.5-17.0)
[2023-10-06] MEDS: Lactulose 20 GM/30 ML SOLUTION PO (22:41)
[2023-10-06] MEDS: Insulin Glargine,Hum.rec.anlog 100 UNIT/ML 10 ML VIAL 10 UNIT SUBCUT (22:41)
[2023-10-06 22:49] LABS: Glucose, Whole Blood 277 mg/dL (60-115)
--- NOTE | 2023-10-06 23:33 | MHC.EDTECH ---
call out to [facility] to book transport for pt at 2333, estimated eta given was 0015
[2023-10-07] VITALS: BP 131/78; PULSE 90; RESP 18; TEMP 36.7; O2SAT 94
== END 2023-10-07 00:58 | disposition home or self-care (01) ==
PROVIDERS: Nurse Practitioner Family; Physician Assistant; Emergency Provider Emergency Medicine; PCP Internal Medicine Rheumatology
DX: N20.0 Calculus of kidney (principal); N39.0 Urinary tract infection, site not specified; R11.2 Nausea with vomiting, unspecified; F03.90 Unspecified dementia, unspecified severity, without behavioral disturbance, psychotic disturbance, mood disturbance, and anxiety; E11.9 Type 2 diabetes mellitus without complications; Z11.52 Encounter for screening for COVID-19; Z79.4 Long term (current) use of insulin; Z79.899 Other long term (current) drug therapy
CPT/HCPCS: 36415; 74177; 80048; 80076; 81001; 82947; 83605; 83690; 83735; 84484; 85025; 87086; 87088; 87186; 87502; 87635; 93005; 96361; 96374; 99285; J2405; Q9967

== ENCOUNTER → 2023-10-06 14:19 | Outpatient (BNV) | payer OTHER, SELFPAY | PROVIDERS: Emergency Provider Emergency Medicine; PCP Internal Medicine Rheumatology; Visit Provider Internal Medicine Cardiovascular Disease | DX: R00.0 Tachycardia, unspecified (principal) | CPT/HCPCS: 93010 ==

== ENCOUNTER 2023-10-11 11:24 | Emergency (ER) | payer OTHER, SELFPAY ==
--- NOTE | ~2023-10-11 | XR_ITS ---
EXAMINATION: XR ABDOMEN KUB CLINICAL INDICATION: Constipation COMPARISON: None available. TECHNIQUE: AP view of the abdomen. FINDINGS: The large amount of stool seen throughout the colon consistent moderate constipation. No organomegaly. There are radiopaque round density seen overlying the left colon and the left kidney. There is mild degenerative disc changes L4-L5, L3-L4 L5/S1 disc levels with spondylosis. There is minimal levoscoliosis lower lumbar spine. Dystrophic abdominal wall and left lower chest. Calcifications are seen in the right lateral pelvis XR/XR KUB IMPRESSION: 1. Moderate constipation. 2. There are radiopaque densities overlying the left colon and the left kidney. 3. Mild levoscoliosis lower lumbar spine with degenerative disc changes and spondylosis.
--- NOTE | 2023-10-11 11:28 | ED_ITS ---
HPI - General Adult General Chief complaint: Abdominal Pain Stated complaint: CONSTIPATED X5 DAYS Time Seen by Provider: 10/11/23 11:25 Source: patient, family (), EMS and RN notes reviewed Mode of arrival: EMS Limitations: altered mental status History of Present Illness HPI narrative: Patient is a 78-year-old female with history of T1 dm, dementia, CKD, CAD, hypothyroid, HTN, hypercholesterolemia, GERD, recently finished treatment for C. diff presenting to the emergency department with who reports that since visit on 10/06, patient has not had a normal bowel movement. He is patient's primary caregiver, states that when he changed her brief this morning, he abdomen appeared normal size to him but then when RECRUITER came at 10am, he felt patient's abdomen appeared distended. He states that due to her dementia, patient is a poor historian, also notes that since they met in 1961 patient has never complained of pain. Reports that at the time of the visit on 10/06, patient had not had a bowel movement for 3 days. States the night of discharge home on 10/06, she had one soft bowel movement and since that time she has had only ?wet farts? and clear liquids from her rectum. He reports one episode of vomiting after lunch yesterday, reports it was non-bloody, non-bilious. He denies hematochezia or melena. Denies fevers. Reports that patient was being treated for a UTI and her PCP changed the antibiotics yesterday due to urine culture results. He reports that he has been giving all medications as prescribed by her PCP. States he was told to hold patient's blood pressure medication by PCP. He also states he has decreased her insulin at the direction of her PCP due to her decreased appetite/intermittent vomiting. MD complaint: abdominal distention Onset (ago): hour(s) Location: abdomen Associated symptoms: nausea/vomiting (1 episode of vomiting yesterday) and other (constipation) Treatments prior to arrival: none Related Data Home Medications Medication Instructions Recorded Confirmed Lactobacillus rhamnosus GG 10 1 cap PO DAILY 10/14/21 08/28/23 billion cell capsule (Culturelle) cholecalciferol (vitamin D3) 125 125 mcg PO DAILY@1700 10/14/21 08/28/23 mcg (5,000 unit) tablet (Vitamin D3) cyanocobalamin (vitamin B-12) 500 500 mcg PO DAILY 10/14/21 08/28/23 mcg tablet insulin lispro 100 unit/mL 0 - 2 unit subcut DAILY@1730 10/14/21 08/28/23 subcutaneous cartridge (Humalog U-100 Insulin) insulin lispro 100 unit/mL 3 - 4 unit subcut DAILY@1130 10/14/21 08/28/23 subcutaneous cartridge (Humalog U-100 Insulin) insulin lispro 100 unit/mL 4 unit subcut DAILY 10/14/21 08/28/23 subcutaneous cartridge (Humalog U-100 Insulin) simvastatin 20 mg tablet 20 mg PO BEDTIME 10/14/21 08/28/23 sodium chloride 1 gram tablet 2 tab PO BID@0900,1700 01/20/22 08/28/23 insulin lispro 100 unit/mL 1 sliding scale dose subcut TIDAC 03/12/22 08/28/23 subcutaneous solution (Humalog U-100 Insulin) omeprazole magnesium 10 mg oral 40 mg PO DAILY 03/12/22 08/28/23 suspension,delayed release ascorbic acid (vitamin C) 500 mg 500 mg PO BID@0900,1700 03/25/23 08/28/23 tablet cranberry fruit 450 mg tablet 450 mg PO DAILY 03/25/23 08/28/23 estradiol 0.01% (0.1 mg/gram) 0.5 appful vaginal MOWEFR 03/25/23 08/28/23 vaginal cream (Estrace) lisinopril 5 mg tablet 5 mg PO DAILY 03/25/23 08/28/23 ferrous fumarate 324 mg (106 mg 324 mg PO DAILY 08/28/23 08/28/23 iron) tablet insulin glargine-yfgn 100 unit/mL 6 unit subcut BEDTIME 08/28/23 08/28/23 subcutaneous solution levetiracetam 500 mg tablet 500 mg PO BID@0900,1700 08/28/23 08/28/23 (Keppra) menthol 0.44 %-zinc oxide 20.6 % 1 appl topical BID PRN Skin 08/28/23 08/28/23 topical ointment (Calmoseptine) Irritation Previous Rx's Medication Instructions Recorded cephalexin 500 mg capsule 500 mg PO Q12H 7 days #14 caps 10/06/23 lactulose 10 gram/15 mL oral 20 g (30 mL) PO DAILY 3 days #90 mL 10/06/23 solution ondansetron HCl 4 mg tablet 4 mg PO Q6H PRN nausea and 10/06/23 vomiting 2 days #8 tabs sennosides 8.6 mg capsule (senna) 8.6 mg PO BID PRN constipation #20 10/11/23 caps Allergies Allergy/AdvReac Type Severity Reaction Status Date / Time Sulfa (Sulfonamide Allergy Severe RASH/HIVES, Unverified 10/11/23 11:35 Antibiotics) hives [SULFA (SULFONAMIDE ANTIBIOTICS)] insulin aspart Allergy Unknown HIVES Verified 10/11/23 11:35 [From NOVOLOG U-100 INSULIN ASPART] lactose Allergy Unknown Unknown Verified 10/11/23 11:35 levofloxacin [From LEVAQUIN] AdvReac Intermediate BLOOD Verified 10/11/23 11:35 SUGAR DROPS Review of Systems 2 Review of Systems: As per HPI. Yes all other systems are reviewed and are negative Neurologic: Reports confusion Psychiatric: Psychiatric: Reports confusion PMFSH Past Medical History Medical History Esophageal dilatation PPD positive Hyperkalemia Glaucoma Retinopathy QT prolongation POTS (postural orthostatic tachycardia syndrome) Orthostatic hypotension Neuropathy Hypothyroid Hypercholesterolemia HTN (hypertension) GERD (gastroesophageal reflux disease) DM type 1 (diabetes mellitus, type 1) Dementia Vitamin B12 deficiency CKD (chronic kidney disease), stage III CAD (coronary artery disease) COVID-19 Social History Social History Household Members: Spouse Housing: House Do you presently have visiting nurse or other home services: No Unable to assess alcohol history related to: Unable to respond Alcohol intake: never Comment: transfer to [facility] for endoscopy Patient Tobacco Use Status: Never used Tobacco Smoked in Last 30 Days: No e-Cigarette/Vaping Use: Never Used Second Hand Smoke Exposure: No Advance Directives: Yes Advance Directives on File: Yes Advance Directives Date on File: 03/26/23 service: No Current occupational status: retired Physical Exam ED Vital Signs: Vital Signs - 24 hr 10/11/23 11:35 10/11/23 11:45 10/11/23 15:31 Temperature 98.0 F 98.2 F Pulse Rate 101 H 104 H Pulse Rate [Left Apical] 102 H Respiratory Rate 16 21 H Blood Pressure 188/97 H 184/89 H Pulse Oximetry 96 96 Oxygen Delivery Method Room Air Room Air BMI result Body Mass Index 20.6 Vital signs have been reviewed and appear to be correct. Blood pressure elevated. Heart rate mildly tachycardic. Respiratory rate normal. Temperature normal. Oxygen saturation normal. Const General: no acute distress, alert, awake and confusion Nutritional Appearance: average body habitus Orientation/consciousness: confusion Limitations: altered mental status HENLA Head: Yes normocephalic and Yes atraumatic Ears: hearing grossly normal bilaterally General nose exam: Normal external nose present Face and sinus: Yes normal facial exam Mouth: Normal oral and palatal mucosa present Throat: Yes posterior oropharynx normal and Yes uvula midline Eyes Pupils: Equal, round and reactive pupils present Neck Neck: Yes normal visual inspection Chest Chest palpation & inspection: normal inspection of the chest and normal palpation of entire chest wall Resp Effort & Inspection: normal respiratory effort Auscultation: clear to auscultation bilaterally Cardio Rate: regular rate Rhythm: regular rhythm Heart sounds: S1 normal heart sound present and S2 normal heart sound present GI Inspection: Yes distended Palpation (GI): Firmness to palpation present (GI) in the LLQ and in the RLQ, nontender, not rigid, no pulsatile masses and No Rebound tenderness present Auscultation: other (normoactive bowel sounds bilat upper, hypoactive bowel sounds bilat lower) General: Yes no CVA tenderness Back/Spine/Pelvis Back: no CVA tenderness Skin General skin exam: elasticity normal and turgor normal Neuro General: tone normal, moves all extremities, no focal motor deficits and confusion Cranial nerves: Yes Equal, round and reactive pupils present Extrem General: Yes normal to inspection, Yes full ROM, Yes capillary refill normal, Yes no pedal edema and Yes no calf tenderness Medications Administered Discontinued Medications Generic Name Dose Route Start Last Admin Trade Name Freq PRN Reason Stop Dose Admin Sodium Chloride 1,000 mls @ 999 mls/hr 10/11/23 14:45 10/11/23 14:59 Ns IV 10/11/23 15:45 999 mls/hr .Q1H1M CHRISTOPH Administration Procedures Procedure Narrative Procedure Narrative: Patient given soap suds enema with large mix of liquid and solid stool removed. Patient tolerated procedure well. Medical Decision Making Medical Decision Making [facility] Narrative: Patient is a 78-year-old female with history of T1 dm, dementia, CKD, CAD, hypothyroid, HTN, hypercholesterolemia, GERD, recently finished treatment for C. diff presenting to the emergency department with who reports that since visit on 10/06, patient has not had a normal bowel movement. On exam patient is awake, alert and confused, mildly tachycardic, hypertensive, afebrile, physical exam findings as above. Given reported symptoms and physical exam findings, initial differential includes constipation, obstruction. Patient already receiving appropriate treatment for UTI. Labs notable for mild leukocytosis, elevated glucose without evidence of DKA, elevated BUN. IV fluids and insulin ordered. X-ray notable for under constipation, radiopaque densities overlying left colon and left kidney, no evidence of obstruction. My interpretation is in agreement with the radiologist's interpretation. Will give soapsuds enema as patient's constipation has not improved with medication over the past 10 days. Enema given as per procedure note with good response. is comfortable with discharge home. He states he has colace at home, will prescribe Senna. Instructed follow-up with patient's PCP. Return precautions discussed at length at bedside. Patient reports good improvement in symptoms. verbalized understanding of and agreement with plan. Differential Diagnosis Differential Diagnoses: The differential diagnosis associated with the presentation includes As per [facility] Admission/Observation Consideration of admission/observation: Escalation of care including admission/observation considered Lab Data 10/11/23 14:01 10/11/23 14:01 Labs: Lab Results 10/11/23 Range/Units 14:01 WBC 11.6 H (4.8-10.8) X10*3/uL RBC 3.70 L (4.20-5.50) X10*6/uL Hgb 12.4 (12.0-16.0) g/dl Hct 37.7 (37.0-47.0) % MCV 101.9 H (80.0-98.0) fL MCH 33.5 H (27.0-33.0) pg MCHC 32.9 (31.0-35.0) g/dl RDW 15.5 (11.0-16.0) % Plt Count 364 (160-400) X10*3/uL MPV 10.3 (9.4-12.3) fL Immature Gran % (Auto) 0.3 (0.0-0.4) % Neut % (Auto) 79.1 H (45-73) % Lymph % (Auto) 6.1 L (20-40) % [place] % (Auto) 13.7 H (2-11) % Eos % (Auto) 0.4 (0-4) % Baso % (Auto) 0.4 (0-2) % Lymph # (Auto) 0.7 L (1.2-4.9) X10*3/uL [place] # (Auto) 1.6 H (0.1-1.2) X10*3/uL Eos # (Auto) 0.1 (0.0-0.4) X10*3/uL Baso # (Auto) 0.1 (0.0-0.2) X10*3/uL Abs Immat Gran (auto) 0.04 H (0.00-0.03) X10*3/uL Absolute Neuts (auto) 9.1 H (2.0-8.3) x10*3/uL Absolute Nucleated RBC 0.000 (0.0-0.012) X10*3/uL Nucleated RBC % (auto) 0.0 (0.0-0.2) /100WBC Smear Tech's Comments VERIFIED Sodium 137 (135-145) mmol/L Potassium 4.3 (3.3-5.1) mmol/L Chloride 101 (96-108) mmol/L Carbon Dioxide 23 (22-29) mmol/L Anion Gap 17 (12-20) BUN 40 H (9-16) mg/dL Creatinine 1.32 (0.5-1.4) mg/dL Estim Creat Clear Calc 33.6 Estimated GFR 39 Random Glucose 370 H* (60-115) mg/dL Calcium 9.6 D (8.4-10.2) mg/dL Total Bilirubin 0.5 (0.0-1.0) mg/dL AST 6 (5-31) U/L ALT 5 (0-31) U/L Alkaline Phosphatase 89 (39-117) U/L Total Protein 6.6 (6.5-8.0) g/dL Albumin 3.6 (3.5-5.0) g/dL Discharge Plan Discharge Clinical Impression: Constipation Patient Disposition: Home, Self-Care Instructions: Constipation (DC) Additional Instructions: You were evaluated in the emergency department today for constipation which improved after receiving an enema. Please follow-up with your primary care provider. You are being prescribed senna which you can take as prescribed in addition to the Colace that you have at home. Return to the emergency department if you develop fever 100.4? F or greater, persistent vomiting, increasing abdominal pain or any other concerning symptoms. Prescriptions: New senna 8.6 mg capsule 8.6 mg PO BID PRN (Reason: constipation) Qty: 20 0RF No Action sodium chloride 1 gram tablet 2 tab PO BID@0900,1700 insulin lispro [Humalog U-100 Insulin] 100 unit/mL Solution 1 sliding scale dose SUBCUT TIDAC Protocol: Insulin Correction Scale Less than or equal to 110 ---- Give (units): 0 111 to 150 Give (units): 0 151 to 200 Give (units): 0 201 to 250 Give (units): 1 251 to 300 Give (units): 2 301 to 350 Give (units): 3 Greater than 350 Give (units): 4 Call MD if Blood Glucose > : 350 Rx Instructions: TO BE GIVEN IN ADDITION TO SET DOSE omeprazole magnesium 10 mg susp,delayed release for recon 40 mg PO DAILY simvastatin 20 mg Tablet 20 mg PO BEDTIME Humalog U-100 Insulin 100 unit/mL Cartridge 4 unit SUBCUT DAILY Humalog U-100 Insulin 100 unit/mL Cartridge 3 - 4 unit subcut DAILY@1130 Rx Instructions: if BS < 150 give 3 unit if BS >/= 150 give 4 units plus the sliding scale Humalog U-100 Insulin 100 unit/mL Cartridge 0 - 2 unit subcut DAILY@1730 Rx Instructions: if BS < 150 give 0 unit if BS >/= 150 give 2 units plus the sliding scale cyanocobalamin (vitamin B-12) 500 mcg Tablet 500 mcg PO DAILY cholecalciferol (vitamin D3) [Vitamin D3] 125 mcg (5,000 unit) Tablet 125 mcg PO DAILY@1700 Culturelle 10 billion cell Capsule 1 cap PO DAILY ascorbic acid (vitamin C) 500 mg Tablet 500 mg PO BID@0900,1700 estradiol [Estrace] 0.01 % (0.1 mg/gram) Cream 0.5 appful VAGINAL MOWEFR Rx Instructions: for 14 days cranberry fruit 450 mg Tablet 450 mg PO DAILY Rx Instructions: administer with a meal lisinopril 5 mg Tablet 5 mg PO DAILY ferrous fumarate 324 mg (106 mg iron) Tablet 324 mg PO DAILY menthol-zinc oxide [Calmoseptine] 0.44-20.6 % Ointment 1 appl TOPICAL BID PRN (Reason: Skin Irritation) levetiracetam [Keppra] 500 mg tablet 500 mg PO BID@0900,1700 insulin glargine-yfgn 100 unit/mL Solution 6 unit SUBCUT BEDTIME cephalexin 500 mg capsule 500 mg PO Q12H 7 Days Qty: 14 0RF lactulose 10 gram/15 mL solution 20 g PO DAILY 3 Days Qty: 90 0RF ondansetron HCl 4 mg tablet 4 mg PO Q6H PRN (Reason: nausea and vomiting) 2 Days Qty: 8 0RF
[2023-10-11 11:30] VITALS: BP 130/98; PULSE 102; O2SAT 98
[2023-10-11 11:35] VITALS: BP 188/97; PULSE 101; RESP 16; TEMP 36.7; O2SAT 96; BMI 20.6
[2023-10-11 11:45] VITALS: PULSE 102
--- NOTE | 2023-10-11 12:06 | PC.NURSE ---
[facility] Radha hamm CONDITIONER TENDER from [facility] called to state they sent the pt in for abd distention, pt urine was positive for UTI/ESBL, nurses have put her on a clear liquid diet for the last 24 hours due to the abd distention/vomiting. they have a concern for SBO.
--- NOTE | 2023-10-11 12:12 | PC.NURSE ---
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
[2023-10-11 14:14] LABS: Basophils Absolute Auto 0.1 X10*3/uL (0.0-0.2); Basophils Percent Auto 0.4 % (0-2); Eosinophils Absolute Auto 0.1 X10*3/uL (0.0-0.4); Eosinophils Percent Auto 0.4 % (0-4); Hematocrit 37.7 % (37.0-47.0); Hemoglobin 12.4 g/dl (12.0-16.0); Imm Gran Abs Auto 0.04 X10*3/uL (0.00-0.03); Imm Gran Pct Auto 0.3 % (0.0-0.4); Lymphocytes Absolute Auto 0.7 X10*3/uL (1.2-4.9); Lymphocytes Percent Auto 6.1 % (20-40); MANUAL DIFF FLAG SCAN; Mean Corpuscular HGB Conc 32.9 g/dl (31.0-35.0); Mean Corpuscular Hemoglobin 33.5 pg (27.0-33.0); Mean Corpuscular Volume 101.9 fL (80.0-98.0); Mean Platelet Volume 10.3 fL (9.4-12.3); Monocytes Absolute Auto 1.6 X10*3/uL (0.1-1.2); Monocytes Percent Auto 13.7 % (2-11); Neutrophils Absolute Auto 9.1 x10*3/uL (2.0-8.3); Neutrophils Percent Auto 79.1 % (45-73); Platelet Count 364 X10*3/uL (160-400); Red Cell Distribution Width 15.5 % (11.0-16.0); SCAN SMEAR FLAG 1; White Blood Count 11.6 X10*3/uL (4.8-10.8)
[2023-10-11 14:30] LABS: Alanine Aminotransferase 5 U/L (0-31); Albumin Level 3.6 g/dL (3.5-5.0); Alkaline Phosphatase 89 U/L (39-117); Aspartate Amino Transferase 6 U/L (5-31); Bilirubin Total 0.5 mg/dL (0.0-1.0); Blood Urea Nitrogen 40 mg/dL (9-16); Calcium 9.6 mg/dL (8.4-10.2); Creatinine Clr Calc Pharmacy 33.6; Estimated Glomerular Filt Rate 39; Glucose Random 370 mg/dL (60-115); Total Protein 6.6 g/dL (6.5-8.0)
[2023-10-11 14:41] LABS: Anion Gap 17 (12-20); Carbon Dioxide 23 mmol/L (22-29); Chloride 101 mmol/L (96-108); Potassium 4.3 mmol/L (3.3-5.1); Sodium 137 mmol/L (135-145)
--- NOTE | 2023-10-11 14:50 | PC.NURSE ---
iv inserted, ivf running per order
[2023-10-11] MEDS: 0.9 % Sodium Chloride 1,000 ML 999 ML IV (14:59)
--- NOTE | 2023-10-11 15:02 | PC.NURSE ---
labs were obtained but lab called and stated none of the labs were any good, phlebotomy was called to come draw the labs again.
[2023-10-11 15:06] LABS: SLIDE REVIEW VERIFIED
[2023-10-11 15:31] VITALS: BP 184/89; PULSE 104; RESP 21; TEMP 36.8; O2SAT 96
[2023-10-11] MEDS: Insulin Lispro 100 UNIT/ML 3 ML VIAL SUBCUT (16:22)
[2023-10-11 16:43] LABS: Glucose, Whole Blood 331 mg/dL (60-115)
== END 2023-10-11 19:00 | disposition home or self-care (01) ==
PROVIDERS: Registered Nurse Emergency; Emergency Provider Emergency Medicine
DX: K59.00 Constipation, unspecified (principal); E10.9 Type 1 diabetes mellitus without complications; Z79.4 Long term (current) use of insulin
CPT/HCPCS: 36415; 74018; 80053; 82947; 85025; 96360; 96361; 99284; 99285

== ENCOUNTER 2023-10-12 14:23 | Inpatient (IN) | payer OTHER, SELFPAY ==
--- NOTE | ~2023-10-12 | CT_ITS ---
EXAMINATION: CT ABDOMEN AND PELVIS WITH CONTRAST CLINICAL INFORMATION: Abdominal pain COMPARISON: 10/06/2023 TECHNIQUE: Multidetector volumetric images were obtained from the superior aspect of the liver through the pubic symphysis following administration 85 mL of Omnipaque 350 intravenous contrast. Sagittal and coronal reformatted images were obtained on the technologist's workstation. Oral contrast: No This CT examination was performed using dose optimization techniques as appropriate, variously including the following: *Automated exposure control *Adjustment of mA and/or kV according to patient size (this includes techniques or standardized protocols for targeted exams where dose is matched to indication/reason for exam; i.e. extremities or head) *Use of iterative reconstruction technique DLP: 460 mGy-cm FINDINGS: LUNG BASES: There is stable right lower lobe nodules with the largest measured 0.6 cm in the right lower lobe. LIVER, GALLBLADDER, AND BILIARY TREE: The liver is normal in size, shape, and attenuation. There are stable tiny low-attenuation lesions in the dome of the liver most likely cysts. There are mildly prominent intrahepatic ducts. Gallbladder is distended with layering stones and small stones in the neck of the gallbladder. CBD is not dilated without evidence of choledocholithiasis. PANCREAS: There is atrophy of the pancreas with mildly dilated duct in the body. SPLEEN: There is heterogeneous attenuation of the spleen new since previous examination most likely due to splenic infarct. ADRENAL GLANDS: Unremarkable. KIDNEYS AND URETERS: There is nonobstructing 0.9 cm stone in the lower pole of left kidney without evidence of hydroureteronephrosis. On the right there is nonobstructing 0.3 cm stone. BLADDER: Urinary bladder is overdistended without evidence of stones or obstruction. GASTROINTESTINAL TRACT: There is large amount of stool and contrast without evidence of obstruction. Appendix is not seen. There are changes of colonic diverticulosis without diverticulitis. There is no mesenteric abnormalities. There is large amount of retained feces in the colon with features of rectosigmoid to fecal impaction. There is large hiatal hernia ABDOMINAL WALL: No significant hernia is appreciated. LYMPH NODES: Normal. VASCULAR: Unremarkable. PELVIC VISCERA: Enlarged calcified uterine fibroid seen in the fundus again OSSEOUS STRUCTURES: There are multilevel degenerative changes in lumbar spine and levoscoliosis. CT/CT abdomen pelvis w IV con IMPRESSION: 1. Cholelithiasis without evidence of cholecystitis. Stones seen in the gallbladder neck and fundus 2. Bilateral nephrolithiasis without hydroureteronephrosis. 3. Splenic infarct, new since previous study, correlate clinically. 4. Constipation with fecal impaction. 5. Diverticulosis without diverticulitis. 6. Large hiatal hernia. 7. Stable right lower lobe lung nodules. 8. Overdistended urinary bladder Fleischner guidelines were followed.
--- NOTE | ~2023-10-12 | CT_ITS ---
EXAMINATION: CT ABDOMEN AND PELVIS WITH CONTRAST CLINICAL INFORMATION: Splenic infarct COMPARISON: CT abdomen and pelvis 10/12/2023 TECHNIQUE: Multidetector volumetric images were obtained from the superior aspect of the liver through the pubic symphysis following administration 85 mL of Omnipaque 350 intravenous contrast. Sagittal and coronal reformatted images were obtained on the technologist's workstation. Oral contrast: No This CT examination was performed using dose optimization techniques as appropriate, variously including the following: *Automated exposure control *Adjustment of mA and/or kV according to patient size (this includes techniques or standardized protocols for targeted exams where dose is matched to indication/reason for exam; i.e. extremities or head) *Use of iterative reconstruction technique DLP: 445 mGy-cm FINDINGS: LUNG BASES: There are multiple right lower lobe pulmonary nodules which are essentially stable. Minimal subpleural atelectatic changes or scarring seen in both lung bases. Heart size is normal. There is moderate coronary artery calcifications. LIVER, GALLBLADDER, AND BILIARY TREE: The liver is normal in size, shape, and attenuation. There are punctate low-density lesions in the liver suggestive of tiny cysts. No biliary ductal dilatation is present. There are multiple dependent radiopaque gallstones without wall thickening. There is layering of stones extending to cystic duct. No pericholecystic fluid collection. PANCREAS: Unremarkable. SPLEEN: There are several hypodense areas seen in the spleen with largest along the posterior segment measuring approximately 5.7 cm wide and 3.7 cm in AP dimension measuring 30 Hounsfield units. ADRENAL GLANDS: Unremarkable. KIDNEYS AND URETERS: Both kidneys are normal size, lobulated without any focal enhancing lesion or hydronephrosis. There is a large nonobstructive 8 mm radiopaque calculi lower pole left kidney. There is a 2 mm nonobstructive calculi mid/lower pole right kidney. Lower pole BLADDER: The bladder is distended without any intraluminal filling defect or bladder wall thickening. GASTROINTESTINAL TRACT: There is large amount of contrast opacifying most of the colon without distention. There is scattered moderate stool in the sigmoid colon with mural thickening. The stomach is nondistended. The small bowel loops are nondistended as well. There is a small amount of free fluid in the pelvis. No free air seen. ABDOMINAL WALL: No significant hernia is appreciated. LYMPH NODES: Normal. VASCULAR: Unremarkable. PELVIC VISCERA: There is significantly enlarged uterus with peripheral myometrial/vascular calcification. It extends to the level of umbilicus. There are calcified granulomas in the right buttock. OSSEOUS STRUCTURES: No aggressive lytic or sclerotic process seen. There is mild degenerative disc changes L3-L4, L4-L5 and L5/S1 disc levels with ventral spondylosis. No aggressive lytic or sclerotic process seen. CT/CT abdomen pelvis w IV con IMPRESSION: 1. Multiple hypodense lesions in the spleen. Question old infarcts 2. Bilateral nonobstructive radiopaque renal calculi. No hydronephrosis seen. 3. Cholelithiasis without wall thickening. Scattered stones are seen along the gallbladder neck but no wall thickening noted. 4. Moderate constipation without obstruction. 5. Small amount of free fluid in the pelvis. 6. Significantly enlarged uterus with peripheral myometrial/vascular calcification. It extends to the level of umbilicus. 7. Multiple right lower lobe pulmonary nodules are stable. 8. Significantly distended urinary bladder with no obstructive etiology seen. 9. Diffuse sigmoid colon wall thickening with moderate stool in the sigmoid region likely constipation. 10. Stable right lower lobe lung nodules. Fleischner guidelines were followed.
[2023-10-12 14:35] VITALS: BP 172/90; PULSE 103; RESP 18; TEMP 36.7; O2SAT 104; BMI 22.3
[2023-10-12 14:40] VITALS: BP 166/100; PULSE 109; O2SAT 99
--- NOTE | 2023-10-12 15:57 | ED_ITS ---
HPI - General Adult General Chief complaint: General Medical Stated complaint: N/V,HIGH BP 162/98 PER EMS Time Seen by Provider: 10/12/23 15:54 Source: patient, family (patient's ) and EMS Mode of arrival: EMS Limitations: no limitations History of Present Illness HPI narrative: Patient is a 78 year old assigned female at with a history of dysphagia, HTN, DM, C.diff, and ESBL presenting to the emergency department today after 2 episodes of vomiting. Patient's states that the patient was seen here yesterday for constipation and disimpacted. Patient's states that the patient was doing well when she got home except after he gave her a few drinks of Gatorade and breakfast, she vomited twice. Patient denies any dizziness, lightheadedness, abdominal pain, fever, chills, blurry vision, double vision, loss of vision, chest pain, difficulty breathing, shortness of breath, back pain, night sweats, pain with urination, increased urinary frequency, increased urinary urgency, blood in her urine or stool, syncope or a near syncopal episode, recent trauma or falls, bowel incontinence, bladder incontinence, bowel retention, bladder retention, or any other complaints at this time. Relieving factors: none Exacerbating factors: none Associated symptoms: nausea/vomiting Treatments prior to arrival: none Related Data Home Medications Medication Instructions Recorded Confirmed Lactobacillus rhamnosus GG 10 1 cap PO DAILY 10/14/21 08/28/23 billion cell capsule (Culturelle) cholecalciferol (vitamin D3) 125 125 mcg PO DAILY@1700 10/14/21 08/28/23 mcg (5,000 unit) tablet (Vitamin D3) cyanocobalamin (vitamin B-12) 500 500 mcg PO DAILY 10/14/21 08/28/23 mcg tablet insulin lispro 100 unit/mL 0 - 2 unit subcut DAILY@1730 10/14/21 08/28/23 subcutaneous cartridge (Humalog U-100 Insulin) insulin lispro 100 unit/mL 3 - 4 unit subcut DAILY@1130 10/14/21 08/28/23 subcutaneous cartridge (Humalog U-100 Insulin) insulin lispro 100 unit/mL 4 unit subcut DAILY 10/14/21 08/28/23 subcutaneous cartridge (Humalog U-100 Insulin) simvastatin 20 mg tablet 20 mg PO BEDTIME 10/14/21 08/28/23 sodium chloride 1 gram tablet 2 tab PO BID@0900,1700 01/20/22 08/28/23 insulin lispro 100 unit/mL 1 sliding scale dose subcut TIDAC 03/12/22 08/28/23 subcutaneous solution (Humalog U-100 Insulin) omeprazole magnesium 10 mg oral 40 mg PO DAILY 03/12/22 08/28/23 suspension,delayed release ascorbic acid (vitamin C) 500 mg 500 mg PO BID@0900,1700 03/25/23 08/28/23 tablet cranberry fruit 450 mg tablet 450 mg PO DAILY 03/25/23 08/28/23 estradiol 0.01% (0.1 mg/gram) 0.5 appful vaginal MOWEFR 03/25/23 08/28/23 vaginal cream (Estrace) lisinopril 5 mg tablet 5 mg PO DAILY 03/25/23 08/28/23 ferrous fumarate 324 mg (106 mg 324 mg PO DAILY 08/28/23 08/28/23 iron) tablet insulin glargine-yfgn 100 unit/mL 6 unit subcut BEDTIME 08/28/23 08/28/23 subcutaneous solution levetiracetam 500 mg tablet 500 mg PO BID@0900,1700 08/28/23 08/28/23 (Keppra) menthol 0.44 %-zinc oxide 20.6 % 1 appl topical BID PRN Skin 08/28/23 08/28/23 topical ointment (Calmoseptine) Irritation Previous Rx's Medication Instructions Recorded cephalexin 500 mg capsule 500 mg PO Q12H 7 days #14 caps 10/06/23 lactulose 10 gram/15 mL oral 20 g (30 mL) PO DAILY 3 days #90 mL 10/06/23 solution ondansetron HCl 4 mg tablet 4 mg PO Q6H PRN nausea and 10/06/23 vomiting 2 days #8 tabs sennosides 8.6 mg capsule (senna) 8.6 mg PO BID PRN constipation #20 10/11/23 caps Allergies Allergy/AdvReac Type Severity Reaction Status Date / Time Sulfa (Sulfonamide Allergy Severe RASH/HIVES, Verified 10/11/23 17:35 Antibiotics) hives [SULFA (SULFONAMIDE ANTIBIOTICS)] insulin aspart Allergy Unknown HIVES Verified 10/11/23 11:35 [From NOVOLOG U-100 INSULIN ASPART] lactose Allergy Unknown Unknown Verified 10/11/23 11:35 levofloxacin [From LEVAQUIN] AdvReac Intermediate BLOOD Verified 10/11/23 11:35 SUGAR DROPS Review of Systems 2 Constitutional: Constitutional: Reports no additional constitutional complaints, Denies chills, Denies fever(s) and Denies night sweats Eyes: Eyes: Reports no additional eye complaints, Denies blurry vision, Denies change in vision, Denies diplopia, Denies eye discharge, Denies loss of vision and Denies eye pain ENT: Denies dizziness Cardiovascular: Cardiovascular: Reports no additional cardiovascular complaints, Denies chest pain, Denies lightheadedness, Denies Loss of Consciousness and Denies dyspnea Respiratory: Respiratory: Reports no additional respiratory complaints and Denies dyspnea Gastrointestinal: Gastrointestinal: Reports no additional gastrointestinal complaints, Denies abdominal pain, Denies melena, Denies hematochezia, Denies change in bowel habits, Denies change in stool character, Reports constipation, Reports nausea and Reports vomiting Genitourinary: Genitourinary: Denies hematuria, Denies urinary frequency, Denies dysuria, Denies urinary incontinence, Denies urinary hesitancy and Denies urinary urgency Musculoskeletal: Musculoskeletal: Reports no additional musculoskeletal complaints, Denies numbness and Denies tingling Neurologic: Denies dizziness, Denies loss of vision, Denies numbness and Denies tingling Psychiatric: Psychiatric: Reports no additional psychiatric complaints Endocrine: Endocrine: Reports no additional endocrine complaints Hematologic/Lymphatic: Hematologic/Lymphatic: Reports no additional hematologic/lymphatic complaints Allergic/Immunologic: Allergic/Immunologic: Reports no additional allergic/immunologic complaints [facility] Past Medical History Attestation statement: The following information was validated with the patient. (all information validated with the patient's ) Source: old records reviewed, obtained from family (patient's provided additional history and confirmed the history provided by the patient.) and nursing notes reviewed Medical History Esophageal dilatation PPD positive Hyperkalemia Glaucoma Retinopathy QT prolongation POTS (postural orthostatic tachycardia syndrome) Orthostatic hypotension Neuropathy Hypothyroid Hypercholesterolemia HTN (hypertension) GERD (gastroesophageal reflux disease) DM type 1 (diabetes mellitus, type 1) Dementia Vitamin B12 deficiency CKD (chronic kidney disease), stage III CAD (coronary artery disease) COVID-19 Social History Social History Household Members: Spouse Housing: House Do you presently have visiting nurse or other home services: No Unable to assess alcohol history related to: Unable to respond Alcohol intake: never Comment: transfer to [facility] for endoscopy Patient Tobacco Use Status: Never used Tobacco Smoked in Last 30 Days: No e-Cigarette/Vaping Use: Never Used Second Hand Smoke Exposure: No Use of substances other than those prescribed or required for medical reasons: No Advance Directives: Yes Advance Directives on File: Yes Advance Directives Date on File: 03/26/23 service: No Current occupational status: retired Physical Exam ED Vital Signs: Vital Signs - 24 hr 10/12/23 14:35 10/12/23 16:00 10/12/23 18:00 Temperature 98.1 F 98.7 F Pulse Rate 103 H 105 H Respiratory Rate 18 18 Blood Pressure 172/90 H 142/92 H Pulse Oximetry 104 H 98 98 Oxygen Delivery Method Room Air Room Air Room Air 10/12/23 21:21 Temperature Pulse Rate 97 Respiratory Rate 16 Blood Pressure 183/90 H Pulse Oximetry 94 Oxygen Delivery Method Room Air BMI result Body Mass Index 22.3 Const General: cooperative, no acute distress, alert and awake Nutritional Appearance: well nourished Orientation/consciousness: patient oriented x3 Limitations: no limitations HENMT Head: Yes normal to inspection and Yes atraumatic Ears: hearing grossly normal bilaterally and external ears normal General nose exam: Normal external nose present, no nasal discharge noted and no epistaxis Face and sinus: Yes normal facial exam, No abrasion and No laceration Mouth: Normal oral and palatal mucosa present, no drooling and no muffled voice Eyes General: appearance normal, both eyes and all related structures Periorbital: periorbital findings normal Eyelids: Yes eyelids normal Conjunctivae: conjunctivae normal Pupils: Equal, round and reactive pupils present EOM: EOMs intact bilaterally Neck Neck: Yes normal visual inspection, Yes full ROM and Yes no lymphadenopathy Chest Chest palpation & inspection: normal inspection of the chest Resp Effort & Inspection: normal respiratory effort and able to speak in complete sentences GI Inspection: Yes normal to inspection Palpation (GI): Soft to palpation, not firm, nontender, no guarding and not rigid Neuro General: patient oriented x3 and moves all extremities Cranial nerves: Yes Equal, round and reactive pupils present Cognition (Neuro): normal cognition Motor exam (neuro): 5/5 motor strength present throughout Sensory Exam: Normal double simultaneous stimulation for sensation Coordination: [id number] test normal Extrem General: Yes normal to inspection, Yes full ROM and Yes capillary refill normal Psych Appearance: grossly normal Mental Status: mental status grossly normal Affect: normal affect Attitude: cooperative Thought process: Normal thought process present Thought content: Normal thought content present Insight: Good insight present (Psych) Medications Administered Discontinued Medications Generic Name Dose Route Start Last Admin Trade Name Freq PRN Reason Stop Dose Admin Diatrizoate Meglum/Diatrizoate Sod 30 ml 10/12/23 17:55 10/12/23 17:56 Diatrizoate Meglumine, Sodium 30 Ml Solution PO 10/12/23 17:56 30 ml ONCE ONE Administration Sodium Chloride 1,000 mls @ 999 mls/hr 10/12/23 16:30 10/12/23 18:07 Ns IV 10/12/23 17:30 Infused .Q1H1M CHRISTOPH Infusion Metronidazole 500 mg in 100 mls @ 100 mls/hr 10/12/23 16:16 10/12/23 18:06 Flagyl IV 10/12/23 17:15 Infused ONCE ONE Infusion Iohexol 85 ml 10/12/23 20:01 10/12/23 20:01 Iohexol 350 Mg/Ml 100 Ml Infus..Btl IV 10/12/23 20:02 85 ml ONCE ONE Administration Ondansetron HCl 4 mg 10/12/23 16:16 10/12/23 16:35 Ondansetron Hcl 4 Mg/2 Ml Vial IVPUSH 10/12/23 16:17 4 mg ONCE ONE Administration Medical Decision Making Medical Decision Making MDM Narrative: Patient is a 78 year old assigned female at with a history of dysphagia, HTN, DM, C.diff, and ESBL presenting to the emergency department today with nausea, vomiting, and continued constipation. Patient's physical exam was as noted in the physical exam portion of this note. Patient's blood work was unremarkable. Patient's urine showed continued infection. Patient's abdomen / pelvis CT showed a new splenic infarct when compared to the 10/06/2023 study and continued constipation. I consulted with Dr. Belkis who recommended medical admission and a repeat CT abdomen/pelvis with IV contrast only. Does not recommend any anti-coagulation at this time. I spoke with the hospitalist team who agreed to admission. Patient's clinical presentation is not consistent with sepsis (@2145). I explained my physical exam findings as well as all test results to the patient and the patient's . I answered all questions asked by the patient and the patient's . Patient and the patient's verbalized agreement and understanding with this treatment plan and [discharge/transfer/admission]. Differential Diagnosis Differential Diagnoses: The differential diagnosis associated with the presentation includes Constipation Abdominal pain Nausea Vomiting Splenic infarct Splenic emboli Admission/Observation Consideration of admission/observation: Escalation of care including admission/observation considered Admitted. Consult Healthcare Provider Management of the patient was discussed with: Hospitalist (agreed to admission) and [employer]eder (spoke to the vascular specialist as noted in the MDM Rationale portion of this note.) Lab Data [facility] Lab Attestation statement: I reviewed the patient's lab results. My interpretation of these results are in the MDM Rationale portion of this note. 10/12/23 16:27 10/12/23 16:27 Labs: Lab Results 10/12/23 10/12/23 10/12/23 Range/Units 16:27 21:14 21:21 WBC 9.3 (4.8-10.8) X10*3/uL RBC 3.81 L (4.20-5.50) X10*6/uL Hgb 12.7 (12.0-16.0) g/dl Hct 38.9 (37.0-47.0) % MCV 102.1 H (80.0-98.0) fL MCH 33.3 H (27.0-33.0) pg MCHC 32.6 (31.0-35.0) g/dl RDW 15.3 (11.0-16.0) % Plt Count 374 (160-400) X10*3/uL MPV 10.0 (9.4-12.3) fL Immature Gran % (Auto) 0.3 (0.0-0.4) % Neut % (Auto) 76.6 H (45-73) % Lymph % (Auto) 9.2 L (20-40) % Cobb % (Auto) 11.8 H (2-11) % Eos % (Auto) 1.7 (0-4) % Baso % (Auto) 0.4 (0-2) % Lymph # (Auto) 0.9 L (1.2-4.9) X10*3/uL Cobb # (Auto) 1.1 (0.1-1.2) X10*3/uL Eos # (Auto) 0.2 (0.0-0.4) X10*3/uL Baso # (Auto) 0.0 (0.0-0.2) X10*3/uL Abs Immat Gran (auto) 0.03 (0.00-0.03) X10*3/uL Absolute Neuts (auto) 7.1 (2.0-8.3) x10*3/uL Absolute Nucleated RBC 0.000 (0.0-0.012) X10*3/uL Nucleated RBC % (auto) 0.0 (0.0-0.2) /100WBC Sodium 140 (135-145) mmol/L Potassium 4.2 (3.3-5.1) mmol/L Chloride 103 (96-108) mmol/L Carbon Dioxide 23 (22-29) mmol/L Anion Gap 18 (12-20) BUN 32 H (9-16) mg/dL Creatinine 1.24 (0.5-1.4) mg/dL Estim Creat Clear Calc 31.7 Estimated GFR 42 POC Glucose (60-115) mg/dL Random Glucose 261 H (60-115) mg/dL Lactic Acid 1.0 (0.5-2.0) mmol/L Calcium 9.3 (8.4-10.2) mg/dL Magnesium 2.0 (1.6-2.6) mg/dL Total Bilirubin 0.4 (0.0-1.0) mg/dL AST 7 (5-31) U/L ALT 5 (0-31) U/L Alkaline Phosphatase 83 (39-117) U/L Total Protein 6.7 (6.5-8.0) g/dL Albumin 3.7 (3.5-5.0) g/dL Urine Color Yellow Urine Appearance Turbid Urine pH 6.0 (5.0-9.0) Ur Specific [place] 1.025 (1.005-1.025) Urine Protein 300 (3+) H (Neg-Trace) mg/dL Urine Glucose (UA) 500 H (Negative) mg/dL Urine Ketones Trace (Negative) mg/dL Urine Blood Small (1+) H (Negative) Urine Nitrite Positive H (Negative) Ur Leukocyte Esterase Moderate (2+) H (Negative) Urine RBC 6-10 H (0-2) /HPF Urine WBC >50 H (0-5) /HPF Ur Squamous Epith Cells 0-2 (0-2) /HPF Urine Bacteria 4+ (None Seen) Hyaline Casts 0-2 (0-2) /LPF 10/12/23 Range/Units 21:25 WBC (4.8-10.8) X10*3/uL RBC (4.20-5.50) X10*6/uL Hgb (12.0-16.0) g/dl Hct (37.0-47.0) % MCV (80.0-98.0) fL MCH (27.0-33.0) pg MCHC (31.0-35.0) g/dl RDW (11.0-16.0) % Plt Count (160-400) X10*3/uL MPV (9.4-12.3) fL Immature Gran % (Auto) (0.0-0.4) % Neut % (Auto) (45-73) % Lymph % (Auto) (20-40) % Cobb % (Auto) (2-11) % Eos % (Auto) (0-4) % Baso % (Auto) (0-2) % Lymph # (Auto) (1.2-4.9) X10*3/uL Cobb # (Auto) (0.1-1.2) X10*3/uL Eos # (Auto) (0.0-0.4) X10*3/uL Baso # (Auto) (0.0-0.2) X10*3/uL Abs Immat Gran (auto) (0.00-0.03) X10*3/uL Absolute Neuts (auto) (2.0-8.3) x10*3/uL Absolute Nucleated RBC (0.0-0.012) X10*3/uL Nucleated RBC % (auto) (0.0-0.2) /100WBC Sodium (135-145) mmol/L Potassium (3.3-5.1) mmol/L Chloride (96-108) mmol/L Carbon Dioxide (22-29) mmol/L Anion Gap (12-20) BUN (9-16) mg/dL Creatinine (0.5-1.4) mg/dL Estim Creat Clear Calc Estimated GFR POC Glucose 77 (60-115) mg/dL Random Glucose (60-115) mg/dL Lactic Acid (0.5-2.0) mmol/L Calcium (8.4-10.2) mg/dL Magnesium (1.6-2.6) mg/dL Total Bilirubin (0.0-1.0) mg/dL AST (5-31) U/L ALT (0-31) U/L Alkaline Phosphatase (39-117) U/L Total Protein (6.5-8.0) g/dL Albumin (3.5-5.0) g/dL Urine Color Urine Appearance Urine pH (5.0-9.0) Ur Specific [place] (1.005-1.025) Urine Protein (Neg-Trace) mg/dL Urine Glucose (UA) (Negative) mg/dL Urine Ketones (Negative) mg/dL Urine Blood (Negative) Urine Nitrite (Negative) Ur Leukocyte Esterase (Negative) Urine RBC (0-2) /HPF Urine WBC (0-5) /HPF Ur Squamous Epith Cells (0-2) /HPF Urine Bacteria (None Seen) Hyaline Casts (0-2) /LPF Independent Interpretation I performed an independent interpretation of an: CT Scan Interpretation: My interpretation is in agreement with the radiologist's impression of this imaging study. - EXAMINATION: CT ABDOMEN AND PELVIS WITH CONTRAST CLINICAL INFORMATION: Abdominal pain COMPARISON: 10/06/2023 TECHNIQUE: Multidetector volumetric images were obtained from the superior aspect of the liver through the pubic symphysis following administration 85 mL of Omnipaque 350 intravenous contrast. Sagittal and coronal reformatted images were obtained on the technologist's workstation. Oral contrast: No This CT examination was performed using dose optimization techniques as appropriate, variously including the following: *Automated exposure control *Adjustment of mA and/or kV according to patient size (this includes techniques or standardized protocols for targeted exams where dose is matched to indication/reason for exam; i.e. extremities or head) *Use of iterative reconstruction technique DLP: 460 mGy-cm FINDINGS: LUNG BASES: There is stable right lower lobe nodules with the largest measured 0.6 cm in the right lower lobe. LIVER, GALLBLADDER, AND BILIARY TREE: The liver is normal in size, shape, and attenuation. There are stable tiny low-attenuation lesions in the dome of the liver most likely cysts. There are mildly prominent intrahepatic ducts. Gallbladder is distended with layering stones and small stones in the neck of the gallbladder. CBD is not dilated without evidence of choledocholithiasis. PANCREAS: There is atrophy of the pancreas with mildly dilated duct in the body. SPLEEN: There is heterogeneous attenuation of the spleen new since previous examination most likely due to splenic infarct. ADRENAL GLANDS: Unremarkable. KIDNEYS AND URETERS: There is nonobstructing 0.9 cm stone in the lower pole of left kidney without evidence of hydroureteronephrosis. On the right there is nonobstructing 0.3 cm stone. BLADDER: Urinary bladder is overdistended without evidence of stones or obstruction. GASTROINTESTINAL TRACT: There is large amount of stool and contrast without evidence of obstruction. Appendix is not seen. There are changes of colonic diverticulosis without diverticulitis. There is no mesenteric abnormalities. There is large amount of retained feces in the colon with features of rectosigmoid to fecal impaction. There is large hiatal hernia ABDOMINAL WALL: No significant hernia is appreciated. LYMPH NODES: Normal. VASCULAR: Unremarkable. PELVIC VISCERA: Enlarged calcified uterine fibroid seen in the fundus again OSSEOUS STRUCTURES: There are multilevel degenerative changes in lumbar spine and levoscoliosis. CT/CT abdomen pelvis w IV con IMPRESSION: 1. Cholelithiasis without evidence of cholecystitis. Stones seen in the gallbladder neck and fundus 2. Bilateral nephrolithiasis without hydroureteronephrosis. 3. Splenic infarct, new since previous study, correlate clinically. 4. Constipation with fecal impaction. 5. Diverticulosis without diverticulitis. 6. Large hiatal hernia. 7. Stable right lower lobe lung nodules. 8. Overdistended urinary bladder Fleischner guidelines were followed. Dictated By: Jamal Brewer MD Signed By: Electronically signed by Jamal Brewer MD 10/12/232025 Radiology Impression Discussion of test interpretation with radiology: I have reviewed the radiologist's reading. Independent Historian Clinical information obtained from an independent historian. History obtained from or confirmed by: Spouse (patient's provided additional history and confirmed the history provided by the patient. ) and EMS (EMS provided additional history and confirmed the history provided by the patient. ) Critical Care Time Critical Care Time Critical Care Time: Yes Total Critical Care Time: 65 Attestation: I spent 65 minutes of Critical Care Time with this patient. This does not include time spent on separately reported billable procedures. Discharge Plan Discharge Clinical Impression: Splenic infarct, Constipation Patient Disposition: Admitted As Inpatient Prescriptions: No Action sodium chloride 1 gram tablet 2 tab PO BID@0900,1700 insulin lispro [Humalog U-100 Insulin] 100 unit/mL Solution 1 sliding scale dose SUBCUT TIDAC Protocol: Insulin Correction Scale Less than or equal to 110 ---- Give (units): 0 111 to 150 Give (units): 0 151 to 200 Give (units): 0 201 to 250 Give (units): 1 251 to 300 Give (units): 2 301 to 350 Give (units): 3 Greater than 350 Give (units): 4 Call MD if Blood Glucose > : 350 Rx Instructions: TO BE GIVEN IN ADDITION TO SET DOSE omeprazole magnesium 10 mg susp,delayed release for recon 40 mg PO DAILY simvastatin 20 mg Tablet 20 mg PO BEDTIME Humalog U-100 Insulin 100 unit/mL Cartridge 4 unit SUBCUT DAILY Humalog U-100 Insulin 100 unit/mL Cartridge 3 - 4 unit subcut DAILY@1130 Rx Instructions: if BS < 150 give 3 unit if BS >/= 150 give 4 units plus the sliding scale Humalog U-100 Insulin 100 unit/mL Cartridge 0 - 2 unit subcut DAILY@1730 Rx Instructions: if BS < 150 give 0 unit if BS >/= 150 give 2 units plus the sliding scale cyanocobalamin (vitamin B-12) 500 mcg Tablet 500 mcg PO DAILY cholecalciferol (vitamin D3) [Vitamin D3] 125 mcg (5,000 unit) Tablet 125 mcg PO DAILY@1700 Culturelle 10 billion cell Capsule 1 cap PO DAILY ascorbic acid (vitamin C) 500 mg Tablet 500 mg PO BID@0900,1700 estradiol [Estrace] 0.01 % (0.1 mg/gram) Cream 0.5 appful VAGINAL MOWEFR Rx Instructions: for 14 days cranberry fruit 450 mg Tablet 450 mg PO DAILY Rx Instructions: administer with a meal lisinopril 5 mg Tablet 5 mg PO DAILY ferrous fumarate 324 mg (106 mg iron) Tablet 324 mg PO DAILY menthol-zinc oxide [Calmoseptine] 0.44-20.6 % Ointment 1 appl TOPICAL BID PRN (Reason: Skin Irritation) levetiracetam [Keppra] 500 mg tablet 500 mg PO BID@0900,1700 insulin glargine-yfgn 100 unit/mL Solution 6 unit SUBCUT BEDTIME cephalexin 500 mg capsule 500 mg PO Q12H 7 Days Qty: 14 0RF lactulose 10 gram/15 mL solution 20 g PO DAILY 3 Days Qty: 90 0RF ondansetron HCl 4 mg tablet 4 mg PO Q6H PRN (Reason: nausea and vomiting) 2 Days Qty: 8 0RF senna 8.6 mg capsule 8.6 mg PO BID PRN (Reason: constipation) Qty: 20 0RF
[2023-10-12 16:00] VITALS: O2SAT 98
[2023-10-12] MEDS: 0.9 % Sodium Chloride 1,000 ML 999 ML IV (16:28)
[2023-10-12 16:34] LABS: MANUAL DIFF FLAG NO
[2023-10-12] MEDS: ondansetron HCL 4 MG/2 ML VIAL IVPUSH (16:35)
[2023-10-12 16:36] LABS: Basophils Percent Auto 0.4 % (0-2); Eosinophils Absolute Auto 0.2 X10*3/uL (0.0-0.4); Eosinophils Percent Auto 1.7 % (0-4); Hematocrit 38.9 % (37.0-47.0); Hemoglobin 12.7 g/dl (12.0-16.0); Imm Gran Abs Auto 0.03 X10*3/uL (0.00-0.03); Imm Gran Pct Auto 0.3 % (0.0-0.4); Lymphocytes Absolute Auto 0.9 X10*3/uL (1.2-4.9); Lymphocytes Percent Auto 9.2 % (20-40); Mean Corpuscular HGB Conc 32.6 g/dl (31.0-35.0); Mean Corpuscular Hemoglobin 33.3 pg (27.0-33.0); Mean Corpuscular Volume 102.1 fL (80.0-98.0); Monocytes Absolute Auto 1.1 X10*3/uL (0.1-1.2); Monocytes Percent Auto 11.8 % (2-11); Neutrophils Absolute Auto 7.1 x10*3/uL (2.0-8.3); Neutrophils Percent Auto 76.6 % (45-73); Platelet Count 374 X10*3/uL (160-400); Red Blood Count 3.81 X10*6/uL (4.20-5.50); Red Cell Distribution Width 15.3 % (11.0-16.0); White Blood Count 9.3 X10*3/uL (4.8-10.8)
[2023-10-12] MEDS: metroNIDAZOLE/NS 500 MG/100 ML PIGGYBACK 100 MG IV (16:36)
[2023-10-12 16:49] LABS: Alanine Aminotransferase 5 U/L (0-31); Albumin Level 3.7 g/dL (3.5-5.0); Alkaline Phosphatase 83 U/L (39-117); Anion Gap 18 (12-20); Aspartate Amino Transferase 7 U/L (5-31); Bilirubin Total 0.4 mg/dL (0.0-1.0); Blood Urea Nitrogen 32 mg/dL (9-16); Calcium 9.3 mg/dL (8.4-10.2); Carbon Dioxide 23 mmol/L (22-29); Chloride 103 mmol/L (96-108); Creatinine Clr Calc Pharmacy 31.7; Estimated Glomerular Filt Rate 42; Glucose Random 261 mg/dL (60-115); Potassium 4.2 mmol/L (3.3-5.1); Sodium 140 mmol/L (135-145); Total Protein 6.7 g/dL (6.5-8.0)
[2023-10-12] MEDS: Diatrizoate Meglumine, Sodium 30 ML SOLUTION PO (17:56)
[2023-10-12 18:00] VITALS: BP 142/92; PULSE 105; RESP 18; TEMP 37.1; O2SAT 98
[2023-10-12] MEDS: iohexoL 350 MG/ML 100 ML INFUS..BTL 85 ML IV (20:01)
[2023-10-12 21:21] VITALS: BP 183/90; PULSE 97; RESP 16; O2SAT 94
[2023-10-12 21:32] LABS: Appearance Urine Turbid; Color Urine Yellow; Glucose Urine UA 500 mg/dL (Negative); Leukocyte Esterase Urine Moderate (2+) (Negative); Nitrite Urine Positive (Negative); Specific Gravity - Urine 1.025 (1.005-1.025); UMIC TRIGGER UACC YES; Urine Blood Small (1+) (Negative); Urine Ketones Trace mg/dL (Negative); Urine Protein 300 (3+) mg/dL (Neg-Trace)
--- NOTE | 2023-10-12 21:32 | P.HPHOSP_ITS ---
History of Present Illness Date of Service: 10/12/23 Attending physician on admission: Ronald Roman Chief Complaint: Nausea, vomiting, abd pain Pt is a 78-year-old female with a PMH significant for?CAD, CKD stage 3, vascular dementia, type 1 diabetes, GERD, HTN, HLD, hypothyroidism, POTS, recurrent UTIs, seizure disorder, dysphagia, and chronically wheelchair-bound who presents to the ED with nausea and vomiting since this morning. This is her third visit to the ED in the past week for similar symptoms. Pt has vascular dementia at baseline and is AOx2; HPI is supplemented by who is bedside. Pt has a complicated PMH, including having chronic UTIs. Pt was recently treated for ESBL UTI in August 2023?with a 10-day course of meropenem. Pt subesequently developed C Diff infection for which she recently completed 14-day abx course, and also a vaginal yeast infection for which she is currently taking fluconazole and flagyl. Pt then presented to the ED on 10/06/2023 for evaluation of nausea and vomiting. Was found to have a UTI and discharged home on Keflex. Pt then represented to the ED yesterday for evaluation of N/V and constipation x5 days. Was given soapsuds enema and then discharged with Senna prn. reports pt had up to 7 bowel movements during the night but then experienced more nausea and vomiting this morning when she was drinking Gatorade during breakfast. He then brought her in for further evaluation. Pt herself currently has no acute medical complaints. Denies chest pain/pressure, palpitations. No shortness of breath. Denies headache. No fever, chills, nausea, vomiting, abdominal pain. Denies polyuria, dysuria. Of note, is adamant pt will be discharged home and not to short term or longterm rehab. In the ED pt was tachycardic up to 105 and hypertensive up to 183/90, vitals otherwise WNL. Labs were largely unremarkable. No leukocytosis. Stable H&H, at baseline. Electrolytes WNL. Renal function baseline. Hepatic function baseline. Lactic acid WNL at 1.0. UA likely positive for UTI. CT of abdomen and pelvis found splenic infarct, new since previous study 6 days prior on 10/06/2023, constipation with fecal impaction, and over distended urinary bladder. The ED contacted vascular surgery who thought the imaging was less conclusive about the splenic infarct. Recommended holding off on heparin drip and getting repeat imaging in the morning. Pt was treated with IVF, ondansetron and metronidazole. Pt will be admitted to the hospital for treatment of constipation and further evaluation of possible splenic infarct. Review of Systems 2 Review of Systems: N/V Constipation Pt currently denies any acute medical complaints [facility] Medical History Esophageal dilatation PPD positive Hyperkalemia Glaucoma Retinopathy QT prolongation POTS (postural orthostatic tachycardia syndrome) Orthostatic hypotension Neuropathy Hypothyroid Hypercholesterolemia HTN (hypertension) GERD (gastroesophageal reflux disease) DM type 1 (diabetes mellitus, type 1) Dementia Vitamin B12 deficiency CKD (chronic kidney disease), stage III CAD (coronary artery disease) COVID-19 Social History Household Members: Spouse Housing: House Do you presently have visiting nurse or other home services: No Unable to assess alcohol history related to: Unable to respond Alcohol intake: never Comment: transfer to [facility] for endoscopy Patient Tobacco Use Status: Never used Tobacco Smoked in Last 30 Days: No e-Cigarette/Vaping Use: Never Used Second Hand Smoke Exposure: No Use of substances other than those prescribed or required for medical reasons: No Advance Directives: Yes Advance Directives on File: Yes Advance Directives Date on File: 03/26/23 service: No Current occupational status: retired Meds Allergies Allergy/AdvReac Type Severity Reaction Status Date / Time Sulfa (Sulfonamide Allergy Severe RASH/HIVES, Verified 10/11/23 17:35 Antibiotics) hives [SULFA (SULFONAMIDE ANTIBIOTICS)] insulin aspart Allergy Unknown HIVES Verified 10/11/23 11:35 [From NOVOLOG U-100 INSULIN ASPART] lactose Allergy Unknown Unknown Verified 10/11/23 11:35 levofloxacin [From LEVAQUIN] AdvReac Intermediate BLOOD Verified 10/11/23 11:35 SUGAR DROPS Home Medications Medication Instructions Recorded Confirmed Last Taken Type Lactobacillus rhamnosus GG 10 1 cap PO DAILY 10/14/21 08/28/23 08/28/23 History billion cell capsule (Culturelle) cholecalciferol (vitamin D3) 125 125 mcg PO DAILY@1700 10/14/21 08/28/23 08/28/23 History mcg (5,000 unit) tablet (Vitamin D3) cyanocobalamin (vitamin B-12) 500 500 mcg PO DAILY 10/14/21 08/28/23 08/28/23 History mcg tablet insulin lispro 100 unit/mL 0 - 2 unit subcut DAILY@1730 10/14/21 08/28/23 08/27/23 History subcutaneous cartridge (Humalog U-100 Insulin) insulin lispro 100 unit/mL 3 - 4 unit subcut DAILY@1130 10/14/21 08/28/23 08/28/23 History subcutaneous cartridge (Humalog U-100 Insulin) insulin lispro 100 unit/mL 4 unit subcut DAILY 10/14/21 08/28/23 08/28/23 History subcutaneous cartridge (Humalog U-100 Insulin) simvastatin 20 mg tablet 20 mg PO BEDTIME 10/14/21 08/28/23 08/27/23 History sodium chloride 1 gram tablet 2 tab PO BID@0900,1700 01/20/22 08/28/23 08/28/23 History insulin lispro 100 unit/mL 1 sliding scale dose subcut TIDAC 03/12/22 08/28/23 08/28/23 History subcutaneous solution (Humalog U-100 Insulin) omeprazole magnesium 10 mg oral 40 mg PO DAILY 03/12/22 08/28/23 08/28/23 History suspension,delayed release ascorbic acid (vitamin C) 500 mg 500 mg PO BID@0900,1700 03/25/23 08/28/23 08/28/23 History tablet cranberry fruit 450 mg tablet 450 mg PO DAILY 03/25/23 08/28/23 08/28/23 History estradiol 0.01% (0.1 mg/gram) 0.5 appful vaginal MOWEFR 03/25/23 08/28/23 04/10/23 History vaginal cream (Estrace) lisinopril 5 mg tablet 5 mg PO DAILY 03/25/23 08/28/23 08/28/23 History ferrous fumarate 324 mg (106 mg 324 mg PO DAILY 08/28/23 08/28/23 08/28/23 History iron) tablet insulin glargine-yfgn 100 unit/mL 6 unit subcut BEDTIME 12/13/23 12/13/23 12/12/23 History subcutaneous solution levetiracetam 500 mg tablet 500 mg PO BID@0900,1700 08/28/23 08/28/23 08/28/23 History (Keppra) menthol 0.44 %-zinc oxide 20.6 % 1 appl topical BID PRN Skin 08/28/23 08/28/23 Unknown History topical ointment (Calmoseptine) Irritation Physical Exam 2 Vital Signs and Narrative: Vital Signs: Last Vital Signs Temp 98.7 F 10/12/23 18:00 Pulse 97 10/12/23 21:21 Resp 16 10/12/23 21:21 BP 183/90 H 10/12/23 21:21 Pulse Ox 94 10/12/23 21:21 O2 Del Method Room Air 10/12/23 21:21 BMI result Body Mass Index 22.3 Constitutional: Alert, pleasantly confused, in no acute distress. Mental Status: Oriented to person and place, not to time or situation. Eyes: Pupils are equal, round, and reactive to light. Ear, Nose, and Throat: Oropharynx clear, mucous membranes moist. Ears and nose without deformities. Trachea midline. Respiratory: Clear to auscultation bilaterally. No wheezing, rales, or rhonchi. Cardiovascular: S1, S2 regular. No murmurs, rubs, or gallops. Gastrointestinal: Abdomen soft, non-tender, non-distended. Normal bowel sounds. Neurologic: Cranial nerves II-XII are grossly intact bilaterally. No focal neurological deficits. Moves all extremities spontaneously. Skin: Warm, dry. Musculoskeletal: No cyanosis or clubbing. Extremities: No edema. Psychiatric: Pleasantly confused. Results Labs 10/12/23 16:27 10/12/23 16:27 Labs: Laboratory Results - last 24 hr 10/12/23 16:27 MCV 102.1 H MCH 33.3 H MCHC 32.6 RDW 15.3 Plt Count 374 MPV 10.0 Immature Gran % (Auto) 0.3 Neut % (Auto) 76.6 H Lymph % (Auto) 9.2 L Baldwin % (Auto) 11.8 H Eos % (Auto) 1.7 Baso % (Auto) 0.4 Lymph # (Auto) 0.9 L Baldwin # (Auto) 1.1 Eos # (Auto) 0.2 Baso # (Auto) 0.0 Abs Immat Gran (auto) 0.03 Absolute Neuts (auto) 7.1 Absolute Nucleated RBC 0.000 Nucleated RBC % (auto) 0.0 Anion Gap 18 Estim Creat Clear Calc 31.7 Estimated GFR 42 Random Glucose 261 H Calcium 9.3 Magnesium 2.0 Total Bilirubin 0.4 AST 7 ALT 5 Alkaline Phosphatase 83 Total Protein 6.7 Albumin 3.7 Imaging Radiologist's Impressions: Impressions Abdomen/Pelvis CT 10/12/23 20:02 IMPRESSION: 1. Cholelithiasis without evidence of cholecystitis. Stones seen in the gallbladder neck and fundus 2. Bilateral nephrolithiasis without hydroureteronephrosis. 3. Splenic infarct, new since previous study, correlate clinically. 4. Constipation with fecal impaction. 5. Diverticulosis without diverticulitis. 6. Large hiatal hernia. 7. Stable right lower lobe lung nodules. 8. Overdistended urinary bladder Fleischner guidelines were followed. Assessment and Plan (1) Constipation: Status: Acute Plan Pt is a 78-year-old female with a PMH significant for?CAD, CKD stage 3, vascular dementia, type 1 diabetes, GERD, HTN, HLD, hypothyroidism, POTS, recurrent UTIs, seizure disorder, dysphagia, and chronically wheelchair-bound who presents to the ED with nausea and vomiting since this morning. This is her third visit to the ED in the past week for similar symptoms. Pt will be admitted to the hospital for treatment of constipation and further evaluation of possible splenic infarct. Question of splenic infarct CT of abd showing new splenic infarct Vascular surgery consulted who is suspicious of this finding Will repeat imaging of abd tomorrow, per vascular surgery Will hold on anticoagulation and further workup pending further imaging results Monitor on telemetry Constipation Ongoing for past 6 days Yesterday pt treated with enema in ED, subsequently had [address] still showing constipation with fecal impaction Will treat with MoM irasema and colace prn Question of UTI UA likely positive for UTI, though question chronic colonization vs acute infection Pt is afebrile and not encephalopathic; denies polyuria or dysuria Pt is not septic: tachycardia secondary to n/v, and no fever, tacypnea, or leukocytosis Given pt's recent abx course for UTI and its complications, will hold on abx for now pending ID consult Monitor mentation Urinary retention Pure wick in place Vaginal yeast infection Continue fluconazole, flagyl Diet Clear liquids for now, advance as tolerated Pt on pureed and thin liquids at home Glucerna supplement t.i.d. Type 1 diabetes Will keep modified lispro meal dosing SSI, Lantus Diabetic diet Hx of seizure Continue Keppra GERD PPI HLD Continue statin HTN Continue lisinopril Full Code Attending:?Dr. Alexander DVT Prophylaxis: Heparin Pt will require a hospitalization of at least two nights for treatment and further evaluation of possible splenic infarct and constipation. Given pt's 3 ED presentations in the past week, as well as her significant comorbidities including type 1 diabetes, vascular dementia, and CAD, and her inability to tolerate a solid diet, pt willl require hospitalized care. Quality Stroke Does the patient have a stroke diagnosis?: No VTE Prior VTE?: No VTE Risk Level:: Medical - moderate - high VTE Device Contraindication: Treatment Not Indicated VTE Drug Contraindication: N/A - Med Ordered
[2023-10-12 21:33] LABS: Glucose, Whole Blood 77 mg/dL (60-115)
[2023-10-12 21:39] LABS: Bacteria Urine 4+ (None Seen); Hyaline Casts Urine 0-2 /LPF (0-2); Squamous Epithelial Cell Urine 0-2 /HPF (0-2); UACC Culture Trigger YES; WBC Urine >50 /HPF (0-5)
[2023-10-12 21:52] LABS: INTERNATIONAL NORM RATIO 1.1 (0.9-1.1); Prothrombin Time 13.3 SEC (11.1-13.3)
[2023-10-12 21:54] LABS: Partial Thromboplastin Time 27.4 SEC (26.0-36.4)
[2023-10-13] MEDS: Heparin Sodium,Porcine 5,000 UNIT/ML VIAL 5000 UNIT SUBCUT ×3 (02:39→23:30)
[2023-10-13] MEDS: 0.9 % Sodium Chloride Flush 3 ML SYRINGE IVFLUSH ×3 (02:39→23:30)
[2023-10-13 05:13] VITALS: BP 167/83; PULSE 91; RESP 18; TEMP 36.8; O2SAT 95
[2023-10-13 06:23] LABS: Anion Gap 17 (12-20); Blood Urea Nitrogen 24 mg/dL (9-16); Calcium 8.9 mg/dL (8.4-10.2); Carbon Dioxide 21 mmol/L (22-29); Chloride 103 mmol/L (96-108); Creatinine Clr Calc Pharmacy 44.2; Estimated Glomerular Filt Rate > 60; Glucose Random 259 mg/dL (60-115); Potassium 4.1 mmol/L (3.3-5.1); Sodium 137 mmol/L (135-145)
[2023-10-13 07:33] LABS: Glucose, Whole Blood 257 mg/dL (60-115)
[2023-10-13 08:00] VITALS: BP 143/74; PULSE 86; RESP 17; TEMP 36.5; O2SAT 95
[2023-10-13] MEDS: Insulin Lispro 100 UNIT/ML 3 ML VIAL SUBCUT ×4 (08:31→21:38)
[2023-10-13] MEDS: Milk of Magnesia 30 ML ORAL.SUSP PO (08:31)
[2023-10-13 09:47] VITALS: BMI 22.3
[2023-10-13 11:03] LABS: Glucose, Whole Blood 203 mg/dL (60-115)
--- NOTE | 2023-10-13 11:18 | PHA.MEDREC ---
Pharmacy Consult ? Medication Reconciliation Pharmacy has completed the medication reconciliation. Spoke to which had med list from [facility]. Per pt's , pt no longer on keflex, lactulose, lisinopril, zofran, or senna. Patient on fosfomycin Q3D with doses to be given 10/13/23 and 10/16/23. Patient also on fluconazole 100mg daily x7 days with end date on 10/17/23. Pt's also brought in Flagyl bottle which patient hasn't been able to complete because they were in and out of the hospital. Said bottle only has 1 day left of pills left, leaving off med rec.
[2023-10-13 11:23] VITALS: BP 160/80; PULSE 93; RESP 18; TEMP 36.6; O2SAT 93
--- NOTE | 2023-10-13 13:14 | HO.PM.IMPN ---
Subjective Subjective Date of Service: 10/13/23 Interval History: No acute issues overnight. Remains pleasantly confused Review of Systems Denies chest pain Denies shortness of breath Denies nausea vomiting diarrhea Denies fever chills Physical Exam Vital Signs: Vital Signs: Last Vital Signs Temp 97.9 F 10/13/23 11:23 Pulse 93 10/13/23 11:23 Resp 18 10/13/23 11:23 BP 160/80 H 10/13/23 11:23 Pulse Ox 93 10/13/23 11:23 O2 Del Method Room Air 10/13/23 11:23 BMI result Body Mass Index 22.3 Const: Other: Awake alert no acute distress Resp: Other: Clear to auscultation bilaterally no rales rhonchi or wheezes Cardio: Other: No S4; positive S1-S2; no S3 murmurs rubs or gallops GI: Other: Soft nontender nondistended normoactive bowel sounds Extrem: Other: No edema bilaterally Objective Data Active Medications Acetaminophen (Acetaminophen 325 Mg Tablet) 650 mg PO Q6H PRN PRN Reason: Pain, Mild (Pain Scale 1-3) Ascorbic Acid (Ascorbic Acid 500 Mg Tablet) 500 mg PO BID@0900,1700 [facility] Benzonatate (Benzonatate 100 Mg Capsule) 100 mg PO TID PRN PRN Reason: Cough Cyanocobalamin (Cyanocobalamin (Vitamin B-12) 500 Mcg Tablet) 500 mcg PO DAILY [facility] Dextrose (Dextrose 50 % 25 Gm/50 Ml Syringe) 25 gm IVPUSH Q15M PRN; Protocol PRN Reason: per Hypoglycemia Standing Ord. Fluconazole (Fluconazole 100 Mg Tablet) 0 mg PO .COMPLEX CHRISTOPH Glucose (Glucose Gel 15 Gm Gel..Gram.) 15 gm PO Q15M PRN; Protocol PRN Reason: per Hypoglycemia Standing Ord. Heparin Sodium (Porcine) (Heparin Sodium,Porcine 5,000 Unit/Ml Vial) 5,000 unit SUBCUT Q12H [facility] Last Admin: 10/13/23 02:39 Dose: 5,000 unit Documented By: JIHAN Insulin Human Lispro (Insulin Lispro 100 Unit/Ml 3 Ml Vial) 0 unit SUBCUT QIDACHS [facility]; Protocol Last Admin: 10/13/23 08:31 Dose: 6 unit Documented By: ROLANDO Comments: Levetiracetam (Levetiracetam 500 Mg Tablet) 500 mg PO BID@0900,1700 [facility] Magnesium Hydroxide (Milk Of Magnesia 30 Ml Oral.Susp) 30 ml PO DAILY [facility] Last Admin: 10/13/23 08:31 Dose: 30 ml Documented By: ROLANDO Melatonin (Melatonin 3 Mg Tablet) 6 mg PO BEDTIME PRN PRN Reason: Insomnia Non-Formulary Medication (Sodium Chloride) 2 tab PO BID@0900,1700 [facility] Omeprazole (Omeprazole 40 Mg Capsule.Dr) 40 mg PO DAILY@0630 [facility] Ondansetron HCl (Ondansetron Hcl 4 Mg/2 Ml Vial) 4 mg IVPUSH Q8H PRN PRN Reason: Nausea and Vomiting Sodium Chloride (0.9 % Sodium Chloride Flush 3 Ml Syringe) 3 ml IVFLUSH QSHIFT [facility] Last Admin: 10/13/23 08:33 Dose: 3 ml Documented By: ROLANDO Vitamin D (Cholecalciferol (Vitamin D3) 25 Mcg Tablet) 125 mcg PO DAILY@1700 [facility] Labs 10/12/23 16:27 10/13/23 05:50 Labs: Laboratory Results - last 24 hr 10/12/23 10/12/23 10/12/23 16:27 21:14 21:21 MCV 102.1 H MCH 33.3 H MCHC 32.6 RDW 15.3 Plt Count 374 MPV 10.0 Immature Gran % (Auto) 0.3 Neut % (Auto) 76.6 H Lymph % (Auto) 9.2 L [place] % (Auto) 11.8 H Eos % (Auto) 1.7 Baso % (Auto) 0.4 Lymph # (Auto) 0.9 L [place] # (Auto) 1.1 Eos # (Auto) 0.2 Baso # (Auto) 0.0 Abs Immat Gran (auto) 0.03 Absolute Neuts (auto) 7.1 Absolute Nucleated RBC 0.000 Nucleated RBC % (auto) 0.0 PT INR APTT Anion Gap 18 Estim Creat Clear Calc 31.7 Estimated GFR 42 POC Glucose Random Glucose 261 H Lactic Acid 1.0 Calcium 9.3 Magnesium 2.0 Total Bilirubin 0.4 AST 7 ALT 5 Alkaline Phosphatase 83 Total Protein 6.7 Albumin 3.7 Urine Color Yellow Urine Appearance Turbid Urine pH 6.0 Ur Specific [place] 1.025 Urine Protein 300 (3+) H Urine Glucose (UA) 500 H Urine Ketones Trace Urine Blood Small (1+) H Urine Nitrite Positive H Ur Leukocyte Esterase Moderate (2+) H Urine RBC 6-10 H Urine WBC >50 H Ur Squamous Epith Cells 0-2 Urine Bacteria 4+ Hyaline Casts 0-2 10/12/23 10/12/23 10/13/23 21:25 21:37 05:50 MCV MCH MCHC RDW Plt Count MPV Immature Gran % (Auto) Neut % (Auto) Lymph % (Auto) [place] % (Auto) Eos % (Auto) Baso % (Auto) Lymph # (Auto) [place] # (Auto) Eos # (Auto) Baso # (Auto) Abs Immat Gran (auto) Absolute Neuts (auto) Absolute Nucleated RBC Nucleated RBC % (auto) PT 13.3 INR 1.1 APTT 27.4 Anion Gap 17 Estim Creat Clear Calc 44.2 Estimated GFR > 60 POC Glucose 77 Random Glucose 259 H Lactic Acid Calcium 8.9 Magnesium Total Bilirubin AST ALT Alkaline Phosphatase Total Protein Albumin Urine Color Urine Appearance Urine pH Ur Specific [place] Urine Protein Urine Glucose (UA) Urine Ketones Urine Blood Urine Nitrite Ur Leukocyte Esterase Urine RBC Urine WBC Ur Squamous Epith Cells Urine Bacteria Hyaline Casts 10/13/23 10/13/23 07:30 10:58 MCV MCH MCHC RDW Plt Count MPV Immature Gran % (Auto) Neut % (Auto) Lymph % (Auto) [place] % (Auto) Eos % (Auto) Baso % (Auto) Lymph # (Auto) [place] # (Auto) Eos # (Auto) Baso # (Auto) Abs Immat Gran (auto) Absolute Neuts (auto) Absolute Nucleated RBC Nucleated RBC % (auto) PT INR APTT Anion Gap Estim Creat Clear Calc Estimated GFR POC Glucose 257 H 203 H Random Glucose Lactic Acid Calcium Magnesium Total Bilirubin AST ALT Alkaline Phosphatase Total Protein Albumin Urine Color Urine Appearance Urine pH Ur Specific [place] Urine Protein Urine Glucose (UA) Urine Ketones Urine Blood Urine Nitrite Ur Leukocyte Esterase Urine RBC Urine WBC Ur Squamous Epith Cells Urine Bacteria Hyaline Casts Microbiology Microbiology Results: Microbiology 10/12/23 21:21 Urine Culture - Preliminary Urine clean catch - Urine robertson top Culture too young to evaluate. Assessment and Plan (1) ESBL (extended spectrum beta-lactamase) producing bacteria infection: Status: Acute Plan Pt is a 78-year-old female with a PMH significant for?CAD, CKD stage 3, vascular dementia, type 1 diabetes, GERD, HTN, HLD, hypothyroidism, POTS, recurrent UTIs, seizure disorder, dysphagia, and chronically wheelchair-bound who presents to the ED with nausea and vomiting since this morning. This is her third visit to the ED in the past week for similar symptoms. Pt will be admitted to the hospital for treatment of constipation and further evaluation of possible splenic infarct. 1.Question of splenic infarct -no anticoagulation at this time -obtain CT abdomen pelvis with IV contrast -clinically benign exam 2.Question of UTI -continue to await cultures given past history of multiple antibiotics 3.Vaginal yeast infection -Continue fluconazole, flagyl 4.Type 1 diabetes -continue outpt therapies -lispro correctional scale -adjust as indicated 5.Hx of seizure -Continue Keppra Full Code Heparin Requires ongoing hospitalization to clarify/confirm presence of a splenic infarct Quality Stroke Does the patient have a stroke diagnosis?: No VTE Prior VTE?: No VTE Risk Level:: Medical - moderate - high VTE Device Contraindication: Treatment Not Indicated VTE Drug Contraindication: N/A - Med Ordered
[2023-10-13] MEDS: 0.9 % Sodium Chloride 1,000 ML 100 ML IVCONT ×2 (13:52→23:30)
[2023-10-13] MEDS: Omeprazole 40 MG CAPSULE.DR PO (13:53)
[2023-10-13] MEDS: Fluconazole 100 MG TABLET PO (14:23)
[2023-10-13 15:17] VITALS: BP 144/75; PULSE 96; RESP 16; TEMP 37.1; O2SAT 93
--- NOTE | 2023-10-13 16:32 | MHC.CM.PN ---
CM ATTEMPTED TO MEET WITH PT WHO WAS SLEEPING AND DID NOT RESPOND TO SEVERAL ATTEMPTS TO WAKE HER CM TO REVISIT
[2023-10-13 16:55] LABS: Glucose, Whole Blood 183 mg/dL (60-115)
[2023-10-13] MEDS: levETIRAcetam 500 MG TABLET PO (17:44)
[2023-10-13] MEDS: Sodium Chloride Tab 1 GM TABLET 2 GM PO (17:44)
[2023-10-13] MEDS: Ascorbic Acid 500 MG TABLET PO (17:45)
[2023-10-13] MEDS: Cholecalciferol (Vitamin D3) 25 MCG TABLET 125 MCG PO (17:46)
--- NOTE | 2023-10-13 18:26 | HO.SKINPHOTO ---
Location: Buttocks Category: Stage: Length: Width: Depth: cm Location: Category: Stage: Length: Width: Depth: cm Location: Category: Stage: Length: Width: Depth: cm Location: Category: Stage: Length: Width: Depth: cm Location: Category: Stage: Length: Width: Depth: cm Location: Category: Stage: Length: Width: Depth: cm
[2023-10-13 19:26] VITALS: BP 144/68; PULSE 91; RESP 20; TEMP 37.3; O2SAT 94
[2023-10-13 20:01] LABS: Glucose, Whole Blood 202 mg/dL (60-115)
[2023-10-13 23:42] VITALS: BP 134/65; PULSE 81; RESP 20; TEMP 36.2; O2SAT 93
[2023-10-14 03:33] VITALS: BP 173/79; PULSE 92; RESP 20; TEMP 36.4; O2SAT 94
[2023-10-14] MEDS: Omeprazole 40 MG CAPSULE.DR PO (05:25)
[2023-10-14 07:17] VITALS: BP 170/80; PULSE 97; RESP 18; TEMP 36.5; O2SAT 94
[2023-10-14 07:33] LABS: Glucose, Whole Blood 233 mg/dL (60-115)
[2023-10-14 07:34] LABS: MANUAL DIFF FLAG NO
[2023-10-14 07:54] LABS: Basophils Percent Auto 0.5 % (0-2); Eosinophils Absolute Auto 0.1 X10*3/uL (0.0-0.4); Hemoglobin 11.2 g/dl (12.0-16.0); Imm Gran Abs Auto 0.03 X10*3/uL (0.00-0.03); Imm Gran Pct Auto 0.5 % (0.0-0.4); Lymphocytes Absolute Auto 0.9 X10*3/uL (1.2-4.9); Lymphocytes Percent Auto 13.3 % (20-40); Mean Corpuscular HGB Conc 32.9 g/dl (31.0-35.0); Mean Corpuscular Hemoglobin 33.8 pg (27.0-33.0); Mean Corpuscular Volume 102.7 fL (80.0-98.0); Mean Platelet Volume 10.4 fL (9.4-12.3); Monocytes Absolute Auto 0.8 X10*3/uL (0.1-1.2); Monocytes Percent Auto 11.8 % (2-11); Neutrophils Absolute Auto 4.7 x10*3/uL (2.0-8.3); Neutrophils Percent Auto 71.9 % (45-73); Platelet Count 372 X10*3/uL (160-400); Red Blood Count 3.31 X10*6/uL (4.20-5.50); Red Cell Distribution Width 15.1 % (11.0-16.0); White Blood Count 6.5 X10*3/uL (4.8-10.8)
[2023-10-14] MEDS: Cyanocobalamin (Vitamin B-12) 500 MCG TABLET PO (08:06)
[2023-10-14] MEDS: Fluconazole 100 MG TABLET PO (08:06)
[2023-10-14] MEDS: Milk of Magnesia 30 ML ORAL.SUSP PO (08:06)
[2023-10-14] MEDS: Insulin Lispro 100 UNIT/ML 3 ML VIAL SUBCUT ×4 (08:06→20:25)
[2023-10-14] MEDS: Ascorbic Acid 500 MG TABLET PO ×2 (08:06→17:05)
[2023-10-14] MEDS: levETIRAcetam 500 MG TABLET PO ×2 (08:07→17:05)
[2023-10-14] MEDS: Sodium Chloride Tab 1 GM TABLET 2 GM PO ×2 (08:07→17:05)
[2023-10-14 08:11] LABS: Alanine Aminotransferase < 5 U/L (0-31); Albumin Level 3.1 g/dL (3.5-5.0); Alkaline Phosphatase 67 U/L (39-117); Anion Gap 15 (12-20); Aspartate Amino Transferase 7 U/L (5-31); Bilirubin Total 0.4 mg/dL (0.0-1.0); Blood Urea Nitrogen 25 mg/dL (9-16); Calcium 8.7 mg/dL (8.4-10.2); Carbon Dioxide 21 mmol/L (22-29); Chloride 107 mmol/L (96-108); Creatinine Clr Calc Pharmacy 48.6; Estimated Glomerular Filt Rate > 60; Glucose Fasting 242 mg/dL (60-99); Sodium 139 mmol/L (135-145); Total Protein 5.8 g/dL (6.5-8.0)
[2023-10-14] MEDS: 0.9 % Sodium Chloride 1,000 ML 100 ML IVCONT ×2 (08:21→20:25)
--- NOTE | 2023-10-14 08:59 | MHC.CM.PN ---
Patient has a diagnosis of Vascular Dementia; CM spoke with /HCP/Angel @ [phone] and addressed IMM with him (original will be mailed certified letter to Angel and a copy has been placed on the chart). Patient lives in a house with her and she uses a w/c to assist with mobility. Patient receives [employer] from [facility] and home/resume said services is the goal. CM has initiated and will follow for dc planning. PCP is Dr. Bob Stephenson.
[2023-10-14 11:55] LABS: Glucose, Whole Blood 237 mg/dL (60-115)
[2023-10-14 12:00] VITALS: BP 146/73; PULSE 93; RESP 18; TEMP 36.6; O2SAT 94
--- NOTE | 2023-10-14 12:25 | PC.NURSE ---
Pt concern about pt not having a BM for the past 3 week. I explained to him that per night nurse pt had a BM overnight, also pt is getting milk of mag daily as of yesterday. PT had a small incontinent BM today at noon, at bedside.
--- NOTE | 2023-10-14 12:25 | HO.PM.IMPN ---
Subjective Subjective Date of Service: 10/14/23 Interval History: No acute issues overnight. No complaints of abdominal pain Review of Systems Denies chest pain Denies shortness of breath Denies nausea vomiting diarrhea Denies fever chills Physical Exam Vital Signs: Vital Signs: Last Vital Signs Temp 97.7 F 10/14/23 07:17 Pulse 97 10/14/23 07:17 Resp 18 10/14/23 07:17 BP 170/80 H 10/14/23 07:17 Pulse Ox 94 10/14/23 07:17 O2 Del Method Room Air 10/14/23 07:17 BMI result Body Mass Index 22.3 Const: Other: Awake alert no acute distress Resp: Other: Clear to auscultation bilaterally no rales rhonchi or wheezes Cardio: Other: No S4; positive S1-S2; no S3 murmurs rubs or gallops GI: Other: Soft nontender nondistended normoactive bowel sounds Extrem: Other: No edema bilaterally Objective Data Active Medications Acetaminophen (Acetaminophen 325 Mg Tablet) 650 mg PO Q6H PRN PRN Reason: Pain, Mild (Pain Scale 1-3) Ascorbic Acid (Ascorbic Acid 500 Mg Tablet) 500 mg PO BID@0900,1700 [facility] Last Admin: 10/14/23 08:06 Dose: 500 mg Documented By: SAMIRA Benzonatate (Benzonatate 100 Mg Capsule) 100 mg PO TID PRN PRN Reason: Cough Cyanocobalamin (Cyanocobalamin (Vitamin B-12) 500 Mcg Tablet) 500 mcg PO DAILY [facility] Last Admin: 10/14/23 08:06 Dose: 500 mcg Documented By: SAMIRA Dextrose (Dextrose 50 % 25 Gm/50 Ml Syringe) 25 gm IVPUSH Q15M PRN; Protocol PRN Reason: per Hypoglycemia Standing Ord. Fluconazole (Fluconazole 100 Mg Tablet) 100 mg PO DAILY [facility] Stop: 10/17/23 13:14 Last Admin: 10/14/23 08:06 Dose: 100 mg Documented By: SAMIRA Glucose (Glucose Gel 15 Gm Gel..Gram.) 15 gm PO Q15M PRN; Protocol PRN Reason: per Hypoglycemia Standing Ord. Heparin Sodium (Porcine) (Heparin Sodium,Porcine 5,000 Unit/Ml Vial) 5,000 unit SUBCUT Q12H [facility] Last Admin: 10/13/23 23:30 Dose: 5,000 unit Documented By: TYLER Sodium Chloride (Ns) 1,000 mls @ 100 mls/hr IVCONT .Q10H [facility] Last Admin: 10/14/23 08:21 Dose: 100 mls/hr Documented By: SAMIRA Insulin Human Lispro (Insulin Lispro 100 Unit/Ml 3 Ml Vial) 0 unit SUBCUT QIDACHS [facility]; Protocol Last Admin: 10/14/23 08:06 Dose: 4 unit Documented By: SAMIRA Levetiracetam (Levetiracetam 500 Mg Tablet) 500 mg PO BID@0900,1700 [facility] Last Admin: 10/14/23 08:07 Dose: 500 mg Documented By: SAMIRA Magnesium Hydroxide (Milk Of Magnesia 30 Ml Oral.Susp) 30 ml PO DAILY [facility] Last Admin: 10/14/23 08:06 Dose: 30 ml Documented By: SAMIRA Melatonin (Melatonin 3 Mg Tablet) 6 mg PO BEDTIME PRN PRN Reason: Insomnia Omeprazole (Omeprazole 40 Mg Capsule.Dr) 40 mg PO DAILY@0630 [facility] Last Admin: 10/14/23 05:25 Dose: 40 mg Documented By: TYLER Ondansetron HCl (Ondansetron Hcl 4 Mg/2 Ml Vial) 4 mg IVPUSH Q8H PRN PRN Reason: Nausea and Vomiting Sodium Chloride (0.9 % Sodium Chloride Flush 3 Ml Syringe) 3 ml IVFLUSH QSHIFT [facility] Last Admin: 10/14/23 08:07 Dose: Not Given Documented By: SAMIRA Non-Admin Reason: IV Running Sodium Chloride (Sodium Chloride Tab 1 Gm Tablet) 2 gm PO BID@0900,1700 [facility] Last Admin: 10/14/23 08:07 Dose: 2 gm Documented By: SAMIRA Vitamin D (Cholecalciferol (Vitamin D3) 25 Mcg Tablet) 125 mcg PO DAILY@170 [facility] Last Admin: 10/13/23 17:46 Dose: 125 mcg Documented By: FILOMENAIMAT Labs 10/14/23 07:13 10/14/23 07:13 Labs: Laboratory Results - last 24 hr 10/13/23 10/13/23 10/14/23 16:50 19:29 07:13 MCV 102.7 H MCH 33.8 H MCHC 32.9 RDW 15.1 Plt Count 372 MPV 10.4 Immature Gran % (Auto) 0.5 H Neut % (Auto) 71.9 Lymph % (Auto) 13.3 L [place] % (Auto) 11.8 H Eos % (Auto) 2.0 Baso % (Auto) 0.5 Lymph # (Auto) 0.9 L [place] # (Auto) 0.8 Eos # (Auto) 0.1 Baso # (Auto) 0.0 Abs Immat Gran (auto) 0.03 Absolute Neuts (auto) 4.7 Absolute Nucleated RBC 0.000 Nucleated RBC % (auto) 0.0 Anion Gap 15 Estim Creat Clear Calc 48.6 Estimated GFR > 60 POC Glucose 183 H 202 H Fasting Glucose 242 H Calcium 8.7 Total Bilirubin 0.4 AST 7 ALT < 5 Alkaline Phosphatase 67 Total Protein 5.8 L Albumin 3.1 L 10/14/23 10/14/23 07:21 11:45 MCV MCH MCHC RDW Plt Count MPV Immature Gran % (Auto) Neut % (Auto) Lymph % (Auto) [place] % (Auto) Eos % (Auto) Baso % (Auto) Lymph # (Auto) [place] # (Auto) Eos # (Auto) Baso # (Auto) Abs Immat Gran (auto) Absolute Neuts (auto) Absolute Nucleated RBC Nucleated RBC % (auto) Anion Gap Estim Creat Clear Calc Estimated GFR POC Glucose 233 H 237 H Fasting Glucose Calcium Total Bilirubin AST ALT Alkaline Phosphatase Total Protein Albumin Microbiology Microbiology Results: Microbiology 10/12/23 21:21 Urine Culture - Final Urine clean catch - Urine robertson top 10/12/23 21:14 Blood Culture - Preliminary Blood - Venous No growth after 24 hours. 10/12/23 21:14 Blood Culture - Preliminary Blood - Venous No growth after 24 hours. Assessment and Plan (1) Constipation: Status: Acute (2) ESBL (extended spectrum beta-lactamase) producing bacteria infection: Status: Acute Plan Pt is a 78-year-old female with a PMH significant for?CAD, CKD stage 3, vascular dementia, type 1 diabetes, GERD, HTN, HLD, hypothyroidism, POTS, recurrent UTIs, seizure disorder, dysphagia, and chronically wheelchair-bound who presents to the ED with nausea and vomiting since this morning. This is her third visit to the ED in the past week for similar symptoms. Pt will be admitted to the hospital for treatment of constipation and further evaluation of possible splenic infarct. 1.Question of splenic infarct -no anticoagulation at this time -obtain CT abdomen pelvis with IV contrast... Vascular to review -clinically benign exam 2.Question of UTI -continue to await cultures given past history of multiple antibiotics 3.Vaginal yeast infection -Continue fluconazole, flagyl 4.Type 1 diabetes -continue outpt therapies -lispro correctional scale -adjust as indicated 5.Hx of seizure -Continue Keppra Full Code Heparin Requires ongoing hospitalization to clarify/confirm presence of a splenic infarct Quality Stroke Does the patient have a stroke diagnosis?: No VTE Prior VTE?: No VTE Risk Level:: Medical - moderate - high VTE Device Contraindication: Treatment Not Indicated VTE Drug Contraindication: N/A - Med Ordered
[2023-10-14] MEDS: iohexoL 350 MG/ML 100 ML INFUS..BTL IV (12:33)
--- NOTE | 2023-10-14 12:42 | PM.CNGS ---
History of Present Illness Consult details Consult date: 10/14/23 Reason for consult: other (Splenic infarct) Narrative: Complex 78-year-old female with history for hypertension, erosive gastritis, esophageal stricture. She had constipation and actually had a bout of emesis. She is brought in for her constipation. Upon workup on CT scan was noted to have a question a splenic infarct. She now presents for vascular evaluation. Review of Systems Review of Systems: Yes all other systems are reviewed and are negative Constitutional: Constitutional: Reports no additional constitutional complaints ENT: Reports Normal hearing present Cardiovascular: Cardiovascular: Denies chest pain, Denies chest pain at rest, Denies chest pain with activity and Denies pedal edema Respiratory: Respiratory: Denies cough Gastrointestinal: Gastrointestinal: Denies abdominal pain Musculoskeletal: Musculoskeletal: Denies abnormal gait, Denies muscle cramps and Denies radiating pain into limb Integumentary/Breasts: Skin/Breast: Denies skin ulcer and Denies wounds Neurologic: Reports Normal hearing present and Denies abnormal gait Psychiatric: Psychiatric: Reports no additional psychiatric complaints [facility] Past Medical History Medical History Esophageal dilatation PPD positive Hyperkalemia Glaucoma Retinopathy QT prolongation POTS (postural orthostatic tachycardia syndrome) Orthostatic hypotension Neuropathy Hypothyroid Hypercholesterolemia HTN (hypertension) GERD (gastroesophageal reflux disease) DM type 1 (diabetes mellitus, type 1) Dementia Vitamin B12 deficiency CKD (chronic kidney disease), stage III CAD (coronary artery disease) COVID-19 Social History Social History Household Members: Spouse Housing: House Do you presently have visiting nurse or other home services: Yes (RN, [employer], PT, OT comes in once to thrice a week) Unable to assess alcohol history related to: Unable to respond Alcohol intake: never Comment: transfer to [facility] for endoscopy Patient Tobacco Use Status: Never used Tobacco Smoked in Last 30 Days: No e-Cigarette/Vaping Use: Never Used Second Hand Smoke Exposure: No Use of substances other than those prescribed or required for medical reasons: No Currently Displaying Signs/Symptoms of Drug Intoxication Withdrawal: No Have you been hit, kicked, punched, or otherwise hurt by someone within the past year? If so, by whom?: No Do you feel safe in your current relationship?: Yes Is there a partner from a previous relationship who is making you feel unsafe now?: No Are you made to feel afraid or neglected: No Advance Directives: Yes Advance Directives on File: Yes Advance Directives Date on File: 03/26/23 Do you have thoughts of harming others: None Do you have a plan to hurt others: No Plan Recently lost weight without trying: No How much weight loss: Not applicable Eating poorly because of decreased appetite: No Nutrition screen score: 0 Nutrition Risks: Gastrointestinal Malabsorption Patient : No : No Poor oral hygiene: No service: No Current occupational status: retired [employer] Allergies Allergy/AdvReac Type Severity Reaction Status Date / Time Sulfa (Sulfonamide Allergy Severe RASH/HIVES, Verified 10/11/23 17:35 Antibiotics) hives [SULFA (SULFONAMIDE ANTIBIOTICS)] insulin aspart Allergy Unknown HIVES Verified 10/11/23 11:35 [From NOVOLOG U-100 INSULIN ASPART] lactose Allergy Unknown Unknown Verified 10/11/23 11:35 levofloxacin [From LEVAQUIN] AdvReac Intermediate BLOOD Verified 10/11/23 11:35 SUGAR DROPS Active Medications: Current Medications Acetaminophen (Acetaminophen 325 Mg Tablet) 650 mg PO Q6H PRN PRN Reason: Pain, Mild (Pain Scale 1-3) Ascorbic Acid (Ascorbic Acid 500 Mg Tablet) 500 mg PO BID@0900,1700 [facility] Last Admin: 10/14/23 08:06 Dose: 500 mg Benzonatate (Benzonatate 100 Mg Capsule) 100 mg PO TID PRN PRN Reason: Cough Cyanocobalamin (Cyanocobalamin (Vitamin B-12) 500 Mcg Tablet) 500 mcg PO DAILY [facility] Last Admin: 10/14/23 08:06 Dose: 500 mcg Dextrose (Dextrose 50 % 25 Gm/50 Ml Syringe) 25 gm IVPUSH Q15M PRN; Protocol PRN Reason: per Hypoglycemia Standing Ord. Fluconazole (Fluconazole 100 Mg Tablet) 100 mg PO DAILY [facility] Stop: 10/17/23 13:14 Last Admin: 10/14/23 08:06 Dose: 100 mg Glucose (Glucose Gel 15 Gm Gel..Gram.) 15 gm PO Q15M PRN; Protocol PRN Reason: per Hypoglycemia Standing Ord. Heparin Sodium (Porcine) (Heparin Sodium,Porcine 5,000 Unit/Ml Vial) 5,000 unit SUBCUT Q12H [facility] Last Admin: 10/13/23 23:30 Dose: 5,000 unit Sodium Chloride (Ns) 1,000 mls @ 100 mls/hr IVCONT .Q10H [facility] Last Admin: 10/14/23 08:21 Dose: 100 mls/hr Insulin Human Lispro (Insulin Lispro 100 Unit/Ml 3 Ml Vial) 0 unit SUBCUT QIDACHS [facility]; Protocol Last Admin: 10/14/23 08:06 Dose: 4 unit Levetiracetam (Levetiracetam 500 Mg Tablet) 500 mg PO BID@0900,1700 [facility] Last Admin: 10/14/23 08:07 Dose: 500 mg Magnesium Hydroxide (Milk Of Magnesia 30 Ml Oral.Susp) 30 ml PO DAILY [facility] Last Admin: 10/14/23 08:06 Dose: 30 ml Melatonin (Melatonin 3 Mg Tablet) 6 mg PO BEDTIME PRN PRN Reason: Insomnia Omeprazole (Omeprazole 40 Mg Capsule.Dr) 40 mg PO DAILY@0630 [facility] Last Admin: 10/14/23 05:25 Dose: 40 mg Ondansetron HCl (Ondansetron Hcl 4 Mg/2 Ml Vial) 4 mg IVPUSH Q8H PRN PRN Reason: Nausea and Vomiting Sodium Chloride (0.9 % Sodium Chloride Flush 3 Ml Syringe) 3 ml IVFLUSH QSHIFT [facility] Last Admin: 10/14/23 08:07 Dose: Not Given Sodium Chloride (Sodium Chloride Tab 1 Gm Tablet) 2 gm PO BID@0900,1700 [facility] Last Admin: 10/14/23 08:07 Dose: 2 gm Vitamin D (Cholecalciferol (Vitamin D3) 25 Mcg Tablet) 125 mcg PO DAILY@1700 [facility] Last Admin: 10/13/23 17:46 Dose: 125 mcg Home Medications Medication Instructions Recorded Confirmed Last Taken Type Lactobacillus rhamnosus GG 10 1 cap PO DAILY 10/14/21 10/13/23 10/12/23 History billion cell capsule (Culturelle) cholecalciferol (vitamin D3) 125 125 mcg PO DAILY@1700 10/14/21 10/13/23 10/12/23 History mcg (5,000 unit) tablet (Vitamin D3) cyanocobalamin (vitamin B-12) 500 500 mcg PO DAILY 10/14/21 10/13/23 10/12/23 History mcg tablet insulin lispro 100 unit/mL 0 - 2 unit subcut DAILY@1730 10/14/21 10/13/23 10/12/23 History subcutaneous cartridge (Humalog U-100 Insulin) insulin lispro 100 unit/mL 3 - 4 unit subcut DAILY@1130 10/14/21 10/13/23 10/12/23 History subcutaneous cartridge (Humalog U-100 Insulin) insulin lispro 100 unit/mL 4 unit subcut DAILY 10/14/21 10/13/23 10/12/23 History subcutaneous cartridge (Humalog U-100 Insulin) simvastatin 20 mg tablet 20 mg PO BEDTIME 10/14/21 10/13/23 10/11/23 History sodium chloride 1 gram tablet 2 tab PO BID@0900,1700 01/20/22 10/13/23 10/12/23 History insulin lispro 100 unit/mL 1 sliding scale dose subcut TIDAC 03/12/22 10/13/23 10/12/23 History subcutaneous solution (Humalog U-100 Insulin) ascorbic acid (vitamin C) 500 mg 500 mg PO BID@0900,1700 03/25/23 10/13/23 10/12/23 History tablet cranberry fruit 450 mg tablet 450 mg PO DAILY 03/25/23 10/13/23 10/12/23 History estradiol 0.01% (0.1 mg/gram) 0.5 appful vaginal MOWEFR 03/25/23 10/13/23 10/11/23 History vaginal cream (Estrace) ferrous fumarate 324 mg (106 mg 324 mg PO DAILY 08/28/23 10/13/23 10/12/23 History iron) tablet insulin glargine-yfgn 100 unit/mL 10 unit subcut BEDTIME 08/28/23 10/13/23 10/11/23 History subcutaneous solution levetiracetam 500 mg tablet 500 mg PO BID@0900,1700 08/28/23 10/13/23 10/12/23 History (Keppra) menthol 0.44 %-zinc oxide 20.6 % 1 appl topical BID PRN Skin 08/28/23 10/13/23 Unknown History topical ointment (Calmoseptine) Irritation albuterol sulfate 90 mcg/actuation 2 puff inhalation BID@1030,1830 10/13/23 10/13/23 Unknown History aerosol inhaler Shortness Of Breath Or Wheezing ceramides 1,3,6-II (CeraVe topical 1 appl topical BEDTIME 10/13/23 10/13/23 10/11/23 History cream) fluconazole 100 mg tablet See Rx Instructions .Route .COMPLEX 10/13/23 10/13/23 10/12/23 History fosfomycin tromethamine 3 gram See Rx Instructions .Route .COMPLEX 10/13/23 10/13/23 10/10/23 History oral packet omeprazole 40 mg capsule,delayed 40 mg PO DAILY@0630 10/13/23 10/13/23 10/12/23 History release Physical Exam Vital Signs: Vital Signs: Last Vital Signs Temp 97.8 F 10/14/23 12:00 Pulse 93 10/14/23 12:00 Resp 18 10/14/23 12:00 BP 146/73 H 10/14/23 12:00 Pulse Ox 94 10/14/23 12:00 O2 Del Method Room Air 10/14/23 12:00 BMI result Body Mass Index 22.3 Const: General: cooperative, healthy appearing and comfortable Orientation/consciousness: oriented to person, oriented to place and oriented to time HEENT: Head: Yes normal to inspection Neck: Neck: Yes normal visual inspection Carotids: no bruits Chest: Chest palpation & inspection: normal inspection of the chest Resp: Effort & Inspection: normal respiratory effort and able to speak in complete sentences Auscultation: clear to auscultation bilaterally, no crackles, no rales, no rhonchi and no wheezes Cardio: Rate: regular rate Rhythm: regular rhythm Heart sounds: S1 normal heart sound present and S2 normal heart sound present Bruits: no carotid bruits Peripheral pulses: Peripheral pulses 2+ throughout GI: Inspection: Yes normal to inspection Skin: Wounds: no wounds Hair: normal Neuro: General: oriented to person, oriented to place and oriented to time Cranial nerves: Yes CN's II-XII intact bilaterally and Yes Normal hearing present Cognition (Neuro): normal cognition Motor exam (neuro): 5/5 motor strength present throughout Extrem: Other: venous exam: No significant superficial varicosities or spider telangiectasias, minimal edema General: No clubbing, No cyanosis and No edema Psych: Appearance: grossly normal Mental Status: mental status grossly normal Speech and movement: Normal speech and movement present Results Labs 10/14/23 07:13 10/14/23 07:13 Labs: Abnormal lab results 10/13/23 10/13/23 10/14/23 Range/Units 16:50 19:29 07:13 RBC 3.31 L (4.20-5.50) X10*6/uL Hgb 11.2 L (12.0-16.0) g/dl Hct 34.0 L (37.0-47.0) % MCV 102.7 H (80.0-98.0) fL MCH 33.8 H (27.0-33.0) pg Immature Gran % (Auto) 0.5 H (0.0-0.4) % Lymph % (Auto) 13.3 L (20-40) % [place] % (Auto) 11.8 H (2-11) % Lymph # (Auto) 0.9 L (1.2-4.9) X10*3/uL Carbon Dioxide 21 L (22-29) mmol/L BUN 25 H (9-16) mg/dL POC Glucose 183 H 202 H (60-115) mg/dL Fasting Glucose 242 H (60-99) mg/dL Total Protein 5.8 L (6.5-8.0) g/dL Albumin 3.1 L (3.5-5.0) g/dL 10/14/23 10/14/23 Range/Units 07:21 11:45 RBC (4.20-5.50) X10*6/uL Hgb (12.0-16.0) g/dl Hct (37.0-47.0) % MCV (80.0-98.0) fL MCH (27.0-33.0) pg Immature Gran % (Auto) (0.0-0.4) % Lymph % (Auto) (20-40) % [place] % (Auto) (2-11) % Lymph # (Auto) (1.2-4.9) X10*3/uL Carbon Dioxide (22-29) mmol/L BUN (9-16) mg/dL POC Glucose 233 H 237 H (60-115) mg/dL Fasting Glucose (60-99) mg/dL Total Protein (6.5-8.0) g/dL Albumin (3.5-5.0) g/dL Short CBC 10/14/23 Range/Units 07:13 WBC 6.5 (4.8-10.8) X10*3/uL Hgb 11.2 L (12.0-16.0) g/dl Hct 34.0 L (37.0-47.0) % Plt Count 372 (160-400) X10*3/uL BMP 10/14/23 07:13 Sodium 139 Potassium 4.0 Chloride 107 Carbon Dioxide 21 L BUN 25 H Creatinine 0.81 Calcium 8.7 Liver Function 10/14/23 Range/Units 07:13 Total Bilirubin 0.4 (0.0-1.0) mg/dL AST 7 (5-31) U/L ALT < 5 (0-31) U/L Alkaline Phosphatase 67 (39-117) U/L Albumin 3.1 L (3.5-5.0) g/dL Urine 10/12/23 Range/Units 21:21 Urine Color Yellow Urine Appearance Turbid Urine pH 6.0 (5.0-9.0) Ur Specific [place] 1.025 (1.005-1.025) Urine Protein 300 (3+) H (Neg-Trace) mg/dL Urine Glucose (UA) 500 H (Negative) mg/dL All other labs normal. Assessment and Plan (1) Splenic infarct: Status: Acute Plan In short there is concern of splenic infarct. Her abdomen is completely benign. Denies any pain. She reports that she is doing fairly well. She is scheduled for repeat CT scan. We will see see the status of this splenic infarct. Pending results of that can make further recommendation in regards to if anticoagulation is needed or not. Thank you for allowing us to assist in her care. If there are any questions or concerns please do not hesitate to contact us. Procedures Date of Service Date of Service: 10/14/23
[2023-10-14] MEDS: Heparin Sodium,Porcine 5,000 UNIT/ML VIAL 5000 UNIT SUBCUT ×2 (12:44→23:52)
[2023-10-14 15:44] VITALS: BP 157/69; PULSE 98; RESP 24; TEMP 35.5; O2SAT 94
[2023-10-14 16:27] LABS: Glucose, Whole Blood 234 mg/dL (60-115)
[2023-10-14] MEDS: Cholecalciferol (Vitamin D3) 25 MCG TABLET 125 MCG PO (17:06)
[2023-10-14] MEDS: Lactulose 20 GM/30 ML SOLUTION PO (17:06)
[2023-10-14] MEDS: 0.9 % Sodium Chloride Flush 3 ML SYRINGE IVFLUSH ×2 (17:06→23:52)
[2023-10-14 19:20] VITALS: BP 141/66; PULSE 88; RESP 20; TEMP 37.1; O2SAT 93
[2023-10-14 20:02] LABS: Glucose, Whole Blood 200 mg/dL (60-115)
[2023-10-14 23:43] VITALS: BP 174/80; PULSE 90; RESP 20; TEMP 36.6; O2SAT 95
[2023-10-15 03:16] VITALS: BP 182/79; PULSE 95; RESP 20; TEMP 36.7; O2SAT 94
[2023-10-15] MEDS: Labetalol HCL 100 MG/20 ML VIAL 10 MG IVPUSH (04:27)
[2023-10-15] MEDS: 0.9 % Sodium Chloride 1,000 ML 100 ML IVCONT (04:27)
[2023-10-15 04:40] VITALS: BP 106/53; PULSE 85
[2023-10-15] MEDS: Omeprazole 40 MG CAPSULE.DR PO (05:57)
[2023-10-15 06:14] LABS: MANUAL DIFF FLAG NO
[2023-10-15 06:22] LABS: Basophils Absolute Auto 0.1 X10*3/uL (0.0-0.2); Basophils Percent Auto 0.6 % (0-2); Eosinophils Absolute Auto 0.1 X10*3/uL (0.0-0.4); Eosinophils Percent Auto 1.7 % (0-4); Hematocrit 31.6 % (37.0-47.0); Hemoglobin 10.4 g/dl (12.0-16.0); Imm Gran Abs Auto 0.04 X10*3/uL (0.00-0.03); Imm Gran Pct Auto 0.5 % (0.0-0.4); Lymphocytes Absolute Auto 1.3 X10*3/uL (1.2-4.9); Lymphocytes Percent Auto 16.8 % (20-40); Mean Corpuscular HGB Conc 32.9 g/dl (31.0-35.0); Mean Corpuscular Hemoglobin 34.7 pg (27.0-33.0); Mean Corpuscular Volume 105.3 fL (80.0-98.0); Mean Platelet Volume 10.6 fL (9.4-12.3); Monocytes Percent Auto 12.5 % (2-11); Neutrophils Absolute Auto 5.2 x10*3/uL (2.0-8.3); Neutrophils Percent Auto 67.9 % (45-73); Platelet Count 342 X10*3/uL (160-400); Red Cell Distribution Width 14.9 % (11.0-16.0); White Blood Count 7.7 X10*3/uL (4.8-10.8)
[2023-10-15 06:41] LABS: Alanine Aminotransferase < 5 U/L (0-31); Albumin Level 2.7 g/dL (3.5-5.0); Alkaline Phosphatase 58 U/L (39-117); Anion Gap 16 (12-20); Aspartate Amino Transferase 7 U/L (5-31); Bilirubin Total 0.3 mg/dL (0.0-1.0); Blood Urea Nitrogen 21 mg/dL (9-16); Carbon Dioxide 17 mmol/L (22-29); Chloride 108 mmol/L (96-108); Creatinine Clr Calc Pharmacy 46.8; Estimated Glomerular Filt Rate > 60; Glucose Fasting 262 mg/dL (60-99); Potassium 3.7 mmol/L (3.3-5.1); Sodium 137 mmol/L (135-145); Total Protein 5.1 g/dL (6.5-8.0)
[2023-10-15 07:09] VITALS: BP 104/49; PULSE 95; RESP 20; TEMP 36.8; O2SAT 95
[2023-10-15 07:46] LABS: Glucose, Whole Blood 283 mg/dL (60-115)
[2023-10-15] MEDS: levETIRAcetam 500 MG TABLET PO ×2 (08:38→17:14)
[2023-10-15] MEDS: Cyanocobalamin (Vitamin B-12) 500 MCG TABLET PO (08:38)
[2023-10-15] MEDS: Milk of Magnesia 30 ML ORAL.SUSP PO (08:38)
[2023-10-15] MEDS: Insulin Lispro 100 UNIT/ML 3 ML VIAL SUBCUT ×3 (08:38→17:14)
[2023-10-15] MEDS: 0.9 % Sodium Chloride Flush 3 ML SYRINGE IVFLUSH (08:38)
[2023-10-15] MEDS: Fluconazole 100 MG TABLET PO (08:38)
[2023-10-15] MEDS: Sodium Chloride Tab 1 GM TABLET 2 GM PO ×2 (08:38→17:14)
[2023-10-15] MEDS: Ascorbic Acid 500 MG TABLET PO ×2 (08:38→17:14)
[2023-10-15 11:06] LABS: Glucose, Whole Blood 349 mg/dL (60-115)
[2023-10-15 11:12] VITALS: BP 115/56; PULSE 90; RESP 20; TEMP 36.6; O2SAT 95
[2023-10-15] MEDS: Heparin Sodium,Porcine 5,000 UNIT/ML VIAL 5000 UNIT SUBCUT (11:14)
--- NOTE | 2023-10-15 11:18 | P.DS_ITS ---
DS: Providers Provider Date of Service: 10/15/23 Date of admission: 10/12/23 22:58 Date of discharge: 10/15/23 Primary care physician: Bob Stephenson MD Consults: 10/12/23 23:07 Consult to Infectious Diseases Routine Consulting Provider: [facility] [place] Reason for consultation: Chronic UTI, recently tx for ESBL, w/C-Diff as complication 10/12/23 23:15 Consult to Vascular Surgery Routine Consulting Provider: [facility] [place] [facility] Reason for consultation: CT showing splenic infarct Has provider been notified: Yes 10/14/23 16:24 Consult to Gastroenterology Routine Consulting Provider: Som Robert Reason for consultation: vomiting Has provider been notified: No DS: Diagnosis Discharge Diagnosis (1) Splenic infarct: Status: Acute (2) Constipation: Status: Acute (3) ESBL (extended spectrum beta-lactamase) producing bacteria infection: Status: Acute DS: Summary Hospital Course Hospital Course: 8-year-old female with a PMH significant for?CAD, CKD stage 3, vascular dementia, type 1 diabetes, GERD, HTN, HLD, hypothyroidism, POTS, recurrent UTIs, seizure disorder, dysphagia, and chronically wheelchair-bound who presents to the ED with nausea and vomiting since this morning. This is her third visit to the ED in the past week for similar symptoms. Pt has vascular dementia at baseline and is AOx2; HPI is supplemented by who is bedside. Pt has a complicated PMH, including having chronic UTIs. Pt was recently treated for ESBL UTI in August 2023?with a 10-day course of meropenem. Pt subesequently developed C Diff infection for which she recently completed 14-day abx course, and also a vaginal yeast infection for which she is currently taking fluconazole and flagyl. Pt then presented to the ED on 10/06/2023 for evaluation of nausea and vomiting. Was found to have a UTI and discharged home on Keflex. Pt then represented to the ED yesterday for evaluation of N/V and constipation x5 days. Was given soapsuds enema and then discharged with Senna prn. reports pt had up to 7 bowel movements during the night but then experienced more nausea and vomiting this morning when she was drinking Gatorade during breakfast. He then brought her in for further evaluation. Pt herself currently has no acute medical complaints. Denies chest pain/pressure, palpitations. No shortness of breath. Denies headache. No fever, chills, nausea, vomiting, abdominal pain. Denies polyuria, dysuria. Of note, is adamant pt will be discharged home and not to short term or intermediate manager rehab. In the ED pt was tachycardic up to 105 and hypertensive up to 183/90, vitals otherwise WNL. Labs were largely unremarkable. No leukocytosis. Stable H&H, at baseline. Electrolytes WNL. Renal function baseline. Hepatic function baseline. Lactic acid WNL at 1.0. UA likely positive for UTI. CT of abdomen and pelvis found splenic infarct, new since previous study 6 days prior on 10/06/2023, constipation with fecal impaction, and over distended urinary bladder. The ED contacted vascular surgery who thought the imaging was less conclusive about the splenic infarct. Recommended holding off on heparin drip and getting repeat imaging in the morning. Pt was treated with IVF, ondansetron and metronidazole. Pt will be admitted to the hospital for treatment of constipation and further evaluation of possible splenic infarct. [facility] Patient admitted to telemetry. Seen in consultation by vascular surgery for question of splenic infarct. Repeat scan with IV contrast demonstrated questionable old small infarct and the decision was made to treat conservatively as patient was not a candidate for anticoagulation. Patient's CT scan did show moderate constipation for which she was given 1 dose of lactulose with excellent results. Discussion with patient has been on Flagyl intermittently for questionable diagnosis; Flagyl was DC on admission and patient's vomiting improved along with improvement in constipation. At this time she is medically acceptable for discharge home and her 's care. Time Attestation Discharge coordination time: Greater than 30 minutes Quality: Safe Use of Opioids Does Pt have an Active Cancer Diagnosis on the Problem List?: No Quality: Stroke Does the patient have a stroke diagnosis?: No Physical Exam Vital Signs: Vital Signs: Last Vital Signs Temp 97.9 F 10/15/23 11:12 Pulse 90 10/15/23 11:12 Resp 20 10/15/23 11:12 BP 115/56 L 10/15/23 11:12 Pulse Ox 95 10/15/23 11:12 O2 Del Method Room Air 10/15/23 11:12 BMI result Body Mass Index 22.3 Const: Other: Awake alert no acute distress Resp: Other: Clear to auscultation bilaterally no rales rhonchi or wheezes Cardio: Other: No S4; positive S1-S2; no S3 murmurs rubs or gallops GI: Other: Soft nontender nondistended normoactive bowel sounds Extrem: Other: No edema bilaterally DS: Data Data Completed and Pending Completed studies during hospitalization [Text1]: Procedures Insertion of Endotracheal Airway into Trachea, Via Natural or Artificial Opening Endoscopic (10/14/21) Insertion of Infusion Device into Right Basilic Vein, Percutaneous Approach (08/28/23) Introduction of Vasopressor into Peripheral Vein, Percutaneous Approach (10/14/21) Respiratory Ventilation, Less than 24 Consecutive Hours (10/14/21) Labs on day of discharge: Laboratory Results - last 24 hr 10/14/23 10/14/23 10/14/23 11:45 15:47 19:31 WBC RBC Hgb Hct MCV MCH MCHC RDW Plt Count MPV Immature Gran % (Auto) Neut % (Auto) Lymph % (Auto) [place] % (Auto) Eos % (Auto) Baso % (Auto) Lymph # (Auto) [place] # (Auto) Eos # (Auto) Baso # (Auto) Abs Immat Gran (auto) Absolute Neuts (auto) Absolute Nucleated RBC Nucleated RBC % (auto) Sodium Potassium Chloride Carbon Dioxide Anion Gap BUN Creatinine Estim Creat Clear Calc Estimated GFR POC Glucose 237 H 234 H 200 H Fasting Glucose Calcium Total Bilirubin AST ALT Alkaline Phosphatase Total Protein Albumin 10/15/23 10/15/23 10/15/23 05:46 07:08 10:52 WBC 7.7 RBC 3.00 L Hgb 10.4 L Hct 31.6 L MCV 105.3 H MCH 34.7 H MCHC 32.9 RDW 14.9 Plt Count 342 MPV 10.6 Immature Gran % (Auto) 0.5 H Neut % (Auto) 67.9 Lymph % (Auto) 16.8 L [place] % (Auto) 12.5 H Eos % (Auto) 1.7 Baso % (Auto) 0.6 Lymph # (Auto) 1.3 [place] # (Auto) 1.0 Eos # (Auto) 0.1 Baso # (Auto) 0.1 Abs Immat Gran (auto) 0.04 H Absolute Neuts (auto) 5.2 Absolute Nucleated RBC 0.000 Nucleated RBC % (auto) 0.0 Sodium 137 Potassium 3.7 Chloride 108 Carbon Dioxide 17 L Anion Gap 16 BUN 21 H Creatinine 0.84 Estim Creat Clear Calc 46.8 Estimated GFR > 60 POC Glucose 283 H 349 H Fasting Glucose 262 H Calcium 8.0 L D Total Bilirubin 0.3 AST 7 ALT < 5 Alkaline Phosphatase 58 Total Protein 5.1 L Albumin 2.7 L Preliminary micro results at discharge 10/12/23 21:14 Blood Culture - Preliminary Blood - Venous No growth after 48 hours. 10/12/23 21:14 Blood Culture - Preliminary Blood - Venous No growth after 48 hours. Discharge Plan Discharge Anticipated Discharge Date/Time: 10/15/23 11:14 Patient Disposition: Home, Self-Care Discharge Diagnosis: constipation Referrals: Bob Stephenson MD [Primary Care Provider] - 1 Week Discharge Medications: Continued sodium chloride 1 gram tablet 2 tab PO BID@0900,1700 insulin lispro [Humalog U-100 Insulin] 100 unit/mL Solution 1 sliding scale dose SUBCUT TIDAC Protocol: Insulin Correction Scale Less than or equal to 110 ---- Give (units): 0 111 to 150 Give (units): 0 151 to 200 Give (units): 0 201 to 250 Give (units): 1 251 to 300 Give (units): 2 301 to 350 Give (units): 3 Greater than 350 Give (units): 4 Call MD if Blood Glucose > : 350 Rx Instructions: TO BE GIVEN IN ADDITION TO SET DOSE simvastatin 20 mg Tablet 20 mg PO BEDTIME Humalog U-100 Insulin 100 unit/mL Cartridge 4 unit SUBCUT DAILY Humalog U-100 Insulin 100 unit/mL Cartridge 3 - 4 unit subcut DAILY@1130 Rx Instructions: if BS < 150 give 3 unit if BS >/= 150 give 4 units plus the sliding scale Humalog U-100 Insulin 100 unit/mL Cartridge 0 - 2 unit subcut DAILY@1730 Rx Instructions: if BS < 150 give 0 unit if BS >/= 150 give 2 units plus the sliding scale cyanocobalamin (vitamin B-12) 500 mcg Tablet 500 mcg PO DAILY cholecalciferol (vitamin D3) [Vitamin D3] 125 mcg (5,000 unit) Tablet 125 mcg PO DAILY@1700 Culturelle 10 billion cell Capsule 1 cap PO DAILY ascorbic acid (vitamin C) 500 mg Tablet 500 mg PO BID@0900,1700 estradiol [Estrace] 0.01 % (0.1 mg/gram) Cream 0.5 appful VAGINAL MOWEFR Rx Instructions: for 14 days cranberry fruit 450 mg Tablet 450 mg PO DAILY Rx Instructions: administer with a meal albuterol sulfate 90 mcg/actuation HFA aerosol inhaler 2 puff INHALATION BID@1030,1830 omeprazole 40 mg Capsule,Delayed Release(Dr/Ec) 40 mg PO DAILY@0630 ceramides 1,3,6-II [CeraVe] Cream 1 appl TOPICAL BEDTIME fosfomycin tromethamine 3 gram packet See Rx Instructions .ROUTE .COMPLEX Rx Instructions: 1 packet orally every 3 days; DUE DATES: 10/13/23, 10/16/23 ferrous fumarate 324 mg (106 mg iron) Tablet 324 mg PO DAILY menthol-zinc oxide [Calmoseptine] 0.44-20.6 % Ointment 1 appl TOPICAL BID PRN (Reason: Skin Irritation) levetiracetam [Keppra] 500 mg tablet 500 mg PO BID@0900,1700 insulin glargine-yfgn 100 unit/mL Solution 10 unit SUBCUT BEDTIME Discontinued fluconazole 100 mg Tablet See Rx Instructions .ROUTE .COMPLEX Rx Instructions: 100 mg orally DAILY ;END DATE: 10/17/23 Discharge Orders: Discharge Order (Routine); Ordered 10/15/23 Ordered By: Dhaval Valverde Diet: Advance to usual diet Activity on Discharge: As tolerated Stand Alone Forms: Patient Portal Discharge page Care Plan Goals: Resume all medications and therapies as taken before hospital Health Concerns: Stop Flagyl and fluconazole Plan of Treatment: Follow-up with PCP as scheduled Assessment: See discharge summary
--- NOTE | 2023-10-15 12:08 | MHC.CM.PN ---
Addendum entered by Nidhi Cleary 10/15/23 15:56: [facility] arrived with chair van, pt unable to safely get home via chair van. This CM called Evy Ching at [facility] to explain this issue. Evy called her kersey department supervisor and they were able to book an ambulance through [facility] at 7pm this evening. Pt and her Dougie updated. Original Note: Pt is medically cleared for D/C home with her Dougie and resumption of [facility] at home. Pt will transport via [facility] program arranged transportation at 3pm today.
[2023-10-15 13:26] LABS: Glucose, Whole Blood 277 mg/dL (60-115)
[2023-10-15 14:56] LABS: Glucose, Whole Blood 255 mg/dL (60-115)
[2023-10-15 16:19] LABS: Glucose, Whole Blood 240 mg/dL (60-115)
[2023-10-15] MEDS: Cholecalciferol (Vitamin D3) 25 MCG TABLET 125 MCG PO (17:14)
[2023-10-15 18:07] LABS: Glucose, Whole Blood 216 mg/dL (60-115)
[2023-10-15 19:20] LABS: Glucose, Whole Blood 222 mg/dL (60-115)
--- NOTE | 2023-10-15 19:43 | PC.NURSE ---
1930 Nursing Note. Pt verbalizing readiness for discharge. Alert oriented x4. at bedside and verbalizing patient has improved and ready to take her home. VSS. 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 Patient and verbalize understanding od discharged instructions. Patient traqnsported home via ambulance
== END 2023-10-15 19:50 | disposition home or self-care (01) | DRG 690 ==
LOC: HO.ED 21:58 → HO.EDOVER 23:12 → HO.IMC 10-13 07:27
PROVIDERS: Physician Assistant Medical; Admitting Provider Student in an Organized Health Care Education/Training Program; Emergency Provider Emergency Medicine; PCP Internal Medicine Rheumatology; Visit Provider Hospitalist
DX: N39.0 Urinary tract infection, site not specified (principal); Z16.12 Extended spectrum beta lactamase (ESBL) resistance; D73.5 Infarction of spleen; I25.10 Atherosclerotic heart disease of native coronary artery without angina pectoris; N18.30 Chronic kidney disease, stage 3 unspecified; E10.40 Type 1 diabetes mellitus with diabetic neuropathy, unspecified; E78.5 Hyperlipidemia, unspecified; I12.9 Hypertensive chronic kidney disease with stage 1 through stage 4 chronic kidney disease, or unspecified chronic kidney disease; B37.31 Acute candidiasis of vulva and vagina; E10.22 Type 1 diabetes mellitus with diabetic chronic kidney disease; F01.50 Vascular dementia, unspecified severity, without behavioral disturbance, psychotic disturbance, mood disturbance, and anxiety; K59.00 Constipation, unspecified; R33.9 Retention of urine, unspecified; Z87.440 Personal history of urinary (tract) infections; Z79.899 Other long term (current) drug therapy
CPT/HCPCS: 36415; 74177; 80048; 80053; 81001; 82947; 83605; 83735; 85025; 85610; 85730; 87040; 87086; 99285; J1644; J1836; J1920; J2405; Q9967

== ENCOUNTER → 2023-10-12 22:58 | Outpatient (BNV) | payer OTHER, SELFPAY | PROVIDERS: Admitting Provider Student in an Organized Health Care Education/Training Program; Emergency Provider Emergency Medicine; Visit Provider Hospitalist | DX: K59.00 Constipation, unspecified (principal); A49.9 Bacterial infection, unspecified; Z16.12 Extended spectrum beta lactamase (ESBL) resistance | CPT/HCPCS: 99223; 99233; 99239 ==

== ENCOUNTER → 2023-10-12 22:58 | Outpatient (BNV) | payer OTHER, SELFPAY | PROVIDERS: Admitting Provider Student in an Organized Health Care Education/Training Program; Emergency Provider Emergency Medicine; PCP Internal Medicine Rheumatology; Visit Provider Surgery Vascular Surgery | DX: D73.5 Infarction of spleen (principal) | CPT/HCPCS: 99222 ==

== ENCOUNTER 2023-10-20 09:46 | Inpatient (IN) | payer OTHER, SELFPAY ==
[2023-10-20] VITALS (9 sets, daily range): BP systolic 128–201; BP diastolic 63–96; PULSE 95–109; RESP 16–24; TEMP 36.2–37.4; O2SAT 90–100; BMI 23.5
--- NOTE | ~2023-10-20 | CT_ITS ---
EXAMINATION: CT HEAD WITHOUT CONTRAST CLINICAL INFORMATION: Acute mental status change, unresponsive, 78-year-old female COMPARISON: 10/20/2023 TECHNIQUE: Contiguous axial imaging was performed from the skull base to vertex without intravenous administration of contrast. This CT examination was performed using dose optimization techniques as appropriate, variously including the following: *Automated exposure control *Adjustment of mA and/or kV according to patient size (this includes techniques or standardized protocols for targeted exams where dose is matched to indication/reason for exam; i.e. extremities or head) *Use of iterative reconstruction technique DLP: 772 mGy-cm FINDINGS: There is no interval change in appearance of prominent sulci and ventricles as well as cisterns and patchy periventricular white matter changes, without acute intracranial hemorrhage, masses, mass effect or territorial infarcts. Osseous structures are unremarkable. Paranasal sinuses are well aerated and there is partial opacification of air cells in the right and left mastoids. CT/CT head/brain wo IV con IMPRESSION: Interval change and no acute abnormalities. Sequela of microangiopathy and atrophy
--- NOTE | ~2023-10-20 | XR_ITS ---
EXAMINATION: XR CHEST CLINICAL INFORMATION: Tachypnea COMPARISON: 03/25/2023 TECHNIQUE: Frontal view of the chest was obtained. FINDINGS: Prominent cardiac silhouette. Mediastinum within normal limits. Diffuse increased interstitial markings, possibly vascular. Bilateral increased markings and effusions, left greater than right. Bones are demineralized. XR/XR chest 1V IMPRESSION: Bilateral pleural effusions, bibasilar atelectasis, consolidations not excluded. Increased interstitial markings, vascular congestion not excluded.
--- NOTE | ~2023-10-20 | CT_ITS ---
EXAMINATION: CT HEAD WITHOUT CONTRAST CLINICAL INFORMATION: Altered mental status, weakness. COMPARISON: CT head 03/25/2023. TECHNIQUE: Contiguous axial imaging was performed from the skull base to vertex without intravenous administration of contrast. This CT examination was performed using dose optimization techniques as appropriate, variously including the following: *Automated exposure control *Adjustment of mA and/or kV according to patient size (this includes techniques or standardized protocols for targeted exams where dose is matched to indication/reason for exam; i.e. extremities or head) *Use of iterative reconstruction technique DLP: 677 mGy-cm FINDINGS: There is no evidence of acute intracranial hemorrhage or edematous territorial infarction. A few foci of hypoattenuation in the periventricular and deep white matter are consistent with mild microangiopathy. Gonsalez-white matter differentiation is preserved. Proportional prominence of the ventricles and sulcal spaces. No evidence for obstructive hydrocephalus. No abnormal mass effect or midline shift. No extra-axial fluid collections. Again noted symmetric demineralization of the basal ganglia. No acute soft tissue or osseous abnormalities. Paranasal sinuses are clear. Left greater than right mastoid effusions with partial opacification of the left middle ear cavity. CT/CT head/brain wo IV con IMPRESSION: 1. No evidence of acute intracranial hemorrhage or edematous territorial infarction. 2. Left greater than right mastoid effusions with partial opacification of the left middle ear cavity. Recommend clinical correlation for acute otomastoiditis.
--- NOTE | ~2023-10-20 | CT_ITS ---
EXAMINATION: CT HEAD WITHOUT CONTRAST (STROKE PROTOCOL) CLINICAL INFORMATION: Pt is neglecting her left side COMPARISON: CT head October 21, 2023, 11:37 AM TECHNIQUE: Contiguous axial imaging was performed from the skull base to vertex without intravenous administration of contrast. Coronal and sagittal reformatted images are performed at the CT scanner. [This CT examination was performed using dose optimization techniques as appropriate, variously including the following: *Automated exposure control *Adjustment of mA and/or kV according to patient size (this includes techniques or standardized protocols for targeted exams where dose is matched to indication/reason for exam; i.e. extremities or head) *Use of iterative reconstruction technique] DLP: 1192 mGy-cm. FINDINGS: There is motion which limits study. There is no evidence of acute intracranial hemorrhage or territorial infarction. No abnormal mass-effect or midline shift is seen. Gonsalez to white matter differentiation is well preserved. No extra-axial fluid collections are identified. There is generalized global volume loss. There is moderate prominence of the ventricles and the sulci . There is moderate hypodensity of the periventricular white matter due to chronic small vessel ischemic disease. There are vascular calcifications of the internal carotid arteries bilaterally. Physiologic calcifications in the basal ganglia. There is no osseous abnormality. The mastoid air cells and visualized portions of the paranasal sinuses are well-aerated. CT/CT head for stroke IMPRESSION: No acute intracranial pathology. This critical result was discussed with Dr Ronald Alexander at 0004 hours on 10/22/2023. It was ascertained that the content and urgency of the report was understood at the time of direct communication.
--- NOTE | ~2023-10-20 | US_ITS ---
EXAMINATION: US VENOUS ULTRASOUND WITH DOPPLER LOWER EXTREMITY, BILATERAL CLINICAL INFORMATION: Pulmonary embolism, evaluate lower limb deep vein thrombosis COMPARISON: None available. TECHNIQUE: Ultrasound of the deep veins is performed from the hip to the calf with compression sonography and color and pulse Doppler assessment. Spectral analysis with color-flow imaging is performed. FINDINGS: RIGHT: There is normal venous compression and respiratory variation and augmented flow. The visualized common femoral vein, superficial femoral vein, profunda femoral vein, popliteal vein, and the trifurcation region shows no evidence of deep venous thrombosis. There is no significant popliteal fossa cyst. Visualization of calf veins is somewhat limited by lack of patient mobility and suboptimal positioning. LEFT: There is normal venous compression and respiratory variation and augmented flow. The visualized common femoral vein, superficial femoral vein, profunda femoral vein, popliteal vein, and the trifurcation region shows no evidence of deep venous thrombosis. There is no significant popliteal fossa cyst. Visualization of calf veins is somewhat limited by lack of patient mobility and suboptimal positioning. If the patient's symptoms persist, followup ultrasound in 5 days 7 days might be of value to exclude proximal propagation from a non-visualized calf vein. US/US venous duplex LE BI IMPRESSION: No DVT demonstrated in the right and left lower extremities.
--- NOTE | ~2023-10-20 | CT_ITS ---
EXAMINATION: CT ANGIOGRAM HEAD CT ANGIOGRAM NECK CLINICAL INFORMATION: Reason for Exam encephalopathy, + left pronator dift, facial droop COMPARISON: Same-day CT head, CT angiogram of head and neck 03/14/2022 TECHNIQUE: Initial noncontrast utilization coordinator imaging of the head and neck was performed. Comparison is made with noncontrast head CT from earlier today. Test bolus sequences followed by intravenous administration 70 mL of Omnipaque 350. Helical imaging was performed in the axial plane from the aortic arch to the skull vertex. Delayed postcontrast imaging of the head was also performed. The data was processed at the sonography technologist's workstation for generation of MIP sequences. Angled MIPs and volume rendered reformatted images were also generated at an offline 3D workstation. Stenoses are assessed in accordance with Ivan et al. Quantification of Carotid Stenosis on CT Angiography. AJR 2006. 27(1):13-19. [address] CT examination was performed using dose optimization techniques as appropriate, variously including the following: *Automated exposure control *Adjustment of mA and/or kV according to patient size (this includes techniques or standardized protocols for targeted exams where dose is matched to indication/reason for exam; i.e. extremities or head) *Use of iterative reconstruction technique DLP: 1509.48 mGy-cm mGy-cm FINDINGS: CT HEAD: No abnormal intracranial enhancement. Large bilateral mastoid effusions. Bilateral intraocular lens replacements. Please see separately dictated CT scan head for additional intracranial findings. CTA HEAD: Anterior circulation: Right internal carotid artery: Atherosclerosis with moderate to high-grade stenosis in the paraclinoid/supraclinoid segment. Posterior commuting artery. Right middle cerebral artery: No hemodynamically significant stenosis. Right anterior cerebral artery: No hemodynamically significant stenosis. Left internal carotid artery: Atherosclerosis with moderate to high-grade stenosis of the paraclinoid/supraclinoid segment. Left middle cerebral artery: No hemodynamically significant stenosis. Left anterior cerebral artery: No hemodynamically significant stenosis. Posterior circulation: Right vertebral artery: No hemodynamically significant stenosis. Left vertebral artery: No hemodynamically significant stenosis. Basilar artery: No hemodynamically significant stenosis. Right posterior cerebral artery: No hemodynamically significant stenosis. Left posterior cerebral artery: No hemodynamically significant stenosis. No high flow vascular malformation or significant aneurysmal dilatation is visualized. The major dural venous sinuses are grossly within normal limits given arterial technique. CTA NECK: Aortic arch: Normal anatomy. Right common carotid artery: No hemodynamically significant stenosis. Right proximal internal carotid artery: Atherosclerosis at the carotid bulb and proximal internal carotid artery with less than 50% luminal narrowing. Right mid/distal internal carotid artery: No hemodynamically significant stenosis. Left common carotid artery: No hemodynamically significant stenosis. Left proximal internal carotid artery: Atherosclerosis without flow-limiting stenosis. Left mid/distal internal carotid artery: No hemodynamically significant stenosis. Right vertebral artery: No hemodynamically significant stenosis. Left vertebral artery: No hemodynamically significant stenosis. CT NECK: Apical pleural parenchymal scarring. Partially visualized fluid along left major fissure. Scattered nodularity at the right greater than left lung apices. There are pulmonary emboli in the bilateral segmental/subsegmental upper lobes. Patulous esophagus filled with debris. Heterogeneous thyroid gland with subcentimeter nodule for which no imaging follow-up is needed by size criteria. Soft tissue stranding may be related to generalized volume overload. Multilevel degenerative changes of cervical spine. CT/CT angio head neck stroke IMPRESSION: CTA NECK: No hemodynamically significant stenosis. Partially evaluated bilateral upper lobe segmental/subsegmental pulmonary emboli. Dedicated CT angiogram of the chest is recommended for further evaluation. Scattered pulmonary nodules may be infectious/inflammatory. Attention on follow-up is recommended to monitor stability. Additional findings as above. CTA HEAD: No proximal vessel occlusion. Atherosclerosis with moderate to severe stenosis in the bilateral carotid siphons.
--- NOTE | ~2023-10-20 | MR_ITS ---
EXAMINATION: MR BRAIN WITHOUT CONTRAST CLINICAL INFORMATION: Concern for stroke COMPARISON: Same day CT head without contrast, MRI brain without contrast 04/14/2018 TECHNIQUE: Multiplanar multisequence MR imaging of the brain was obtained without intravenous contrast. FINDINGS: Motion degraded examination There is a punctate focus of hyperintense signal on diffusion-weighted imaging involving the posterior insula (series 8 image 17) with corresponding T2/FLAIR hyperintensity and no definite correlate on ADC map which may represent a punctate acute to subacute infarct. No other areas of reduced diffusion are identified within the limitations of motion artifact. Iron sensitive imaging is nondiagnostic secondary to motion artifact. No extra-axial collection or mass effect/herniation. Patchy periventricular, deep white matter, and brainstem T2 FLAIR hyperintensities consistent with moderate underlying microangiopathy. No hydrocephalus. Generalized cerebral volume loss with commensurate sulcal and ventricular prominence. The major flow voids at the skull base are preserved. The midline structures are normal. The cerebellar tonsils are normally positioned. The craniocervical junction is normal. Marrow signal is within normal limits. The visualized soft tissues are without significant abnormality. Bilateral mastoid effusions. Trace maxillary sinus mucosal thickening. MR/MR head/brain wo con IMPRESSION: Motion degraded examination. 1. Possible punctate acute to subacute infarct involving the posterior right insula. No other acute intracranial abnormality within the limitations of motion. 2. Generalized cerebral volume loss and chronic microangiopathy. 3. Bilateral mastoid effusions.
--- NOTE | ~2023-10-20 | CT_ITS ---
EXAMINATION: CT ANGIOGRAM OF THE CHEST WITH AND WITHOUT CONTRAST (CT PULMONARY ANGIOGRAM FOR PE) CLINICAL INFORMATION: Reason for Exam possible pulm embolism COMPARISON: 03/25/2023 chest radiograph TECHNIQUE: Prior to contrast administration, noncontrast localization images were obtained. IV inadvertently disconnected after scan was triggered. Rescanning with multidetector volumetric imaging was performed from the thoracic inlet to below the diaphragms following the administration of 65 mL Omnipaque 350 intravenous contrast. No contrast reaction reported. Sagittal, coronal, and MIP oblique sagittal reformatted images were obtained on the CT workstation, uploaded to PACS, and reviewed. This CT examination was performed using dose optimization techniques as appropriate, variously including the following: *Automated exposure control *Adjustment of mA and/or kV according to patient size (this includes techniques or standardized protocols for targeted exams where dose is matched to indication/reason for exam; i.e. extremities or head) *Use of iterative reconstruction technique Total exam dose-length product 548 mGy-cm FINDINGS: PARTY PLAN SELLING DISTRIBUTOR: Aortic calcifications, prominent cardiac silhouette, bibasilar atelectasis. Bilateral pleural effusions, left greater than right. QUALITY OF STUDY/CONTRAST BOLUS: Satisfactory. PULMONARY ARTERIES: Main pulmonary arteries are enlarged. No filling defects identified to suggest acute pulmonary thromboembolism. HEART AND GREAT VESSELS: Prominent cardiac silhouette. Nonaneurysmal aorta with mild atherosclerotic calcifications. No ventricular septal bowing. No contrast reflux into the inferior vena cava. CORONARY ARTERY CALCIFICATION: Mild. AIRWAYS AND LUNGS: Trachea and bronchi are patent. Bilateral atelectasis. Bilateral lower lobe and lingular consolidation suspected. 6 mm right lower lobe lung nodules not excluded. PLEURA: Bilateral mysk-cp-drlscgua pleural effusions. MEDIASTINUM: Possible 1.6 cm submental lymph node node. Unremarkable thyroid. No pathologic mediastinal lymphadenopathy. Dilated debris-filled esophagus. CHEST WALL/AXILLA: No axillary or internal mammary lymphadenopathy. OSSEOUS STRUCTURES: Degenerative changes. No acute or suspicious osseous abnormality. UPPER ABDOMEN: Unremarkable. No reflux of contrast into the hepatic veins to suggest elevated right heart pressures. CT/CT angio chest PE protocol IMPRESSION: No CT evidence of acute pulmonary thromboembolism. Prominent pulmonary arteries suggest underlying pulmonary hypertension. Bilateral pleural effusions, atelectasis/consolidations. Right lower lobe lung nodules not excluded. Short-term CT follow-up after appropriate therapy recommended in 3-6 months. Diffusely dilated esophagus with debris placing patient at risk for aspiration pneumonia. Question 1.6 cm submental lymph node. Correlate clinically. VTE: negative
--- NOTE | 2023-10-20 11:31 | ED.NAVMDI ---
HPI - Nausea/Vomiting/Diarrhea General Chief complaint: Nausea/Vomiting/Diarrhea Stated complaint: CONFUSION Time Seen by Provider: 10/20/23 10:47 Source: family () and EMS Mode of arrival: EMS Limitations: altered mental status History of Present Illness HPI Narrative: Patient is a 78-year-old female who presents emergency department via EMS coming from home with her , patient with history of dementia unable to provide pertinent history. Her is at bedside who provides details reporting that she has been having vomiting, at least 2 or 3 times since yesterday, unable to tolerate oral intake without vomiting, and lack of bowel movement for the past 4 days. He reports a history of constipation and recent hospitalization. Related Data Home Medications Medication Instructions Recorded Confirmed Lactobacillus rhamnosus GG 10 1 cap PO DAILY 10/14/21 10/20/23 billion cell capsule (Culturelle) cholecalciferol (vitamin D3) 125 125 mcg PO DAILY@1700 10/14/21 10/20/23 mcg (5,000 unit) tablet (Vitamin D3) cyanocobalamin (vitamin B-12) 500 500 mcg PO DAILY 10/14/21 10/20/23 mcg tablet insulin lispro 100 unit/mL 0 - 2 unit subcut DAILY@1730 10/14/21 10/20/23 subcutaneous cartridge (Humalog U-100 Insulin) insulin lispro 100 unit/mL 3 - 4 unit subcut DAILY@1130 10/14/21 10/20/23 subcutaneous cartridge (Humalog U-100 Insulin) insulin lispro 100 unit/mL 4 unit subcut DAILY 10/14/21 10/20/23 subcutaneous cartridge (Humalog U-100 Insulin) simvastatin 20 mg tablet 20 mg PO BEDTIME 10/14/21 10/20/23 sodium chloride 1 gram tablet 2 tab PO BID@0900,1700 01/20/22 10/20/23 insulin lispro 100 unit/mL 1 sliding scale dose subcut TIDAC 03/12/22 10/20/23 subcutaneous solution (Humalog U-100 Insulin) ascorbic acid (vitamin C) 500 mg 500 mg PO BID@0900,1700 03/25/23 10/20/23 tablet cranberry fruit 450 mg tablet 450 mg PO DAILY 03/25/23 10/20/23 estradiol 0.01% (0.1 mg/gram) 0.5 appful vaginal MOWEFR 03/25/23 10/20/23 vaginal cream (Estrace) ferrous fumarate 324 mg (106 mg 324 mg PO DAILY 08/28/23 10/20/23 iron) tablet insulin glargine-yfgn 100 unit/mL 8 unit subcut BEDTIME 08/28/23 10/20/23 subcutaneous solution levetiracetam 500 mg tablet 500 mg PO BID@0900,1700 08/28/23 10/20/23 (Keppra) menthol 0.44 %-zinc oxide 20.6 % 1 appl topical BID PRN Skin 08/28/23 10/20/23 topical ointment (Calmoseptine) Irritation albuterol sulfate 90 mcg/actuation 2 puff inhalation BID@1030,1830 10/13/23 10/20/23 aerosol inhaler Shortness Of Breath Or Wheezing ceramides 1,3,6-II (CeraVe topical 1 appl topical BEDTIME 10/13/23 10/20/23 cream) omeprazole 40 mg capsule,delayed 40 mg PO DAILY@0630 10/13/23 10/20/23 release methenamine hippurate 1 gram tablet 1 g PO BID 10/20/23 10/20/23 Allergies Allergy/AdvReac Type Severity Reaction Status Date / Time Sulfa (Sulfonamide Allergy Severe RASH/HIVES, Verified 10/20/23 10:01 Antibiotics) hives [SULFA (SULFONAMIDE ANTIBIOTICS)] insulin aspart Allergy Unknown HIVES Verified 10/20/23 10:01 [From NOVOLOG U-100 INSULIN ASPART] lactose Allergy Unknown Unknown Verified 10/20/23 10:01 levofloxacin [From LEVAQUIN] AdvReac Intermediate BLOOD Verified 10/20/23 10:01 SUGAR DROPS Review of Systems Review of Systems: Yes all other systems are reviewed and are negative [facility] Past Medical History Attestation statement: The following information was validated with the patient. Source: old records reviewed Medical History Splenic infarct ESBL (extended spectrum beta-lactamase) producing bacteria infection Esophageal dilatation PPD positive Hyperkalemia Glaucoma Retinopathy QT prolongation POTS (postural orthostatic tachycardia syndrome) Orthostatic hypotension Neuropathy Hypothyroid Hypercholesterolemia HTN (hypertension) GERD (gastroesophageal reflux disease) DM type 1 (diabetes mellitus, type 1) Dementia Vitamin B12 deficiency CKD (chronic kidney disease), stage III CAD (coronary artery disease) COVID-19 Social History Social History Household Members: Spouse Housing: House Do you presently have visiting nurse or other home services: Yes (RN, PROPOSAL REVIEW ANALYST, PT, OT comes in once to thrice a week) Unable to assess alcohol history related to: Unable to respond Alcohol intake: never Comment: transfer to [facility] for endoscopy Patient Tobacco Use Status: Never used Tobacco Smoked in Last 30 Days: No e-Cigarette/Vaping Use: Never Used Second Hand Smoke Exposure: No Use of substances other than those prescribed or required for medical reasons: No Advance Directives: Yes Advance Directives on File: Yes Advance Directives Date on File: 03/26/23 Nutrition Risks: No Nutritional Risk service: No Current occupational status: retired Physical Exam Vital Signs: Vital Signs: Last Vital Signs Temp 97.6 F 10/20/23 15:17 Pulse 109 H 10/20/23 15:17 Resp 20 10/20/23 15:17 BP 175/86 H 10/20/23 15:17 Pulse Ox 100 10/20/23 13:40 O2 Del Method Nasal Cannula 10/20/23 15:17 O2 Flow Rate 4 10/20/23 15:17 BMI result Body Mass Index 23.5 Appearance: Alert.? Disoriented. No acute distress.?Normal affect. Eyes: Pupils equal, round and reactive to light.? ENT: Pharynx normal.?? Neck: Normal inspection.? Neck supple.?? CVS: Heart sounds normal. Normal heart rate and rhythm.? Pulses normal.?? Respiratory: No respiratory distress.? Lung sounds clear to auscultation bilaterally?? Abdomen: Soft appears mildly distended, does not appear to have pain upon palpation. Normoactive bowel sounds. No pulsatile mass.?? Skin: Skin warm and dry.? Normal skin color.? Normal skin turgor.?? Extremities: No lower extremity edema.? Neuro: Moves all extremities spontaneously. Sensation intact bilaterally. CN II-XII intact. No focal neuro deficits. Course Reevaluation(s) Reevaluation #1: comes out reporting patient is having seizure, upon examination she is noted to have a leftward gaze, not following commands, no convulsions, extremities rigid, lasting 90 seconds Patient to recieve diazepam 2.5mg IV and keppra IV, reports that she did not receive her Keppra today due to vomiting. Seizure subsided, and she was postictal Time: 12:26 Reevaluation #2: CBC without leukocytosis or anemia, new thrombocytosis. No electrolyte abnormality, renal function at baseline. No lactic acidosis. Lipase within normal limits. Urinalysis convincing for UTI, does not meet sepsis criteria at this time, history of UTI, most recent culture 10/06/2023 revealing E coli ESBL, recent admit august 2023 with same, is receiving IV Invanz for hospitalized, appears she was discharged with meropenem is unclear whether she completed treatment, her reports ?it made her stomach sick and infected and had to be stopped and she was started on Flagyl? but is unable to provide me more specific than this. Upon review of her chart, there was report of being treated with on Flagyl for C difficile by which she completed a 7 day treatment on 10/06/2023, that same day in ED visit 10/06/2022 provided with Keflex for UTI at that time, followed by fosfamycin Q3D 10/10/23. Urinalysis positive at this time, due to history of ESBL, will cover with meropenem, pending urine culture. Again noted to be having 2nd seizure, similar to prior, lasting approximately 60 seconds, responded to diazepam 5 mg IV, post-ictal following. Planning for admission to medicine service; metabolic encephalopathy, urinary tract infection, inability to tolerate oral intake, and seizure Time: 13:13 Medications Administered Generic Name Dose Route Start Last Admin Trade Name Freq PRN Reason Stop Dose Admin Sodium Chloride 3 ml 10/20/23 16:00 10/20/23 15:21 0.9 % Sodium Chloride Flush 3 Ml Syringe IVFLUSH 3 ml QSHIFT CHRISTOPH Administration Discontinued Medications Generic Name Dose Route Start Last Admin Trade Name Freq PRN Reason Stop Dose Admin Diazepam 2.5 mg 10/20/23 12:25 10/20/23 12:34 Diazepam 10 Mg/2 Ml Cartridge IVPUSH 10/20/23 12:26 2.5 mg STAT STA Administration Diazepam 5 mg 10/20/23 13:31 10/20/23 13:13 Diazepam 10 Mg/2 Ml Cartridge IVPUSH 10/20/23 13:32 5 mg STAT STA Administration Levetiracetam 1,000 mg in 100 mls @ 400 mls/hr 10/20/23 12:38 10/20/23 13:06 Keppra IV 10/20/23 12:52 Infused ONCE ONE Infusion Meropenem 1 gm/ Sodium 100 mls @ 200 mls/hr 10/20/23 13:20 10/20/23 14:03 Chloride IV 10/20/23 13:49 Infused ONCE ONE Infusion Insulin Human Lispro 0 unit 10/20/23 15:15 10/20/23 15:20 Insulin Lispro 100 Unit/Ml 3 Ml Vial SUBCUT 6 unit Q6H CHRISTOPH Administration Protocol Medical Decision Making Medical Decision Making MDM Narrative: Patient is a 78-year-old female past medical history of CAD, CKD stage 3, vascular dementia, type 1 diabetes, GERD, hypertension, hyperlipidemia, hypothyroidism, recurrent UTIs, seizure disorder, dysphagia, chronically wheelchair-bound presenting to emergency department for evaluation of nausea vomiting and abdominal distention and concern for constipation, reports no notable bowel movement over the past 4 days aside from small smears of stool in brief. Of note she did have recent hospital admission with constipation, concern for possible splenic infarct vascular surgery involved, CT scan with questionable small infarct, decision for conservative treatment as she has not candidate for anticoagulation. Will obtain CBC to evaluate for leukocytosis/ anemia, CMP and lipase to evaluate for abnormal electrolytes /abnormal renal function/ abnormal hepatic/biliary function, EKG and troponin to evaluate for ischemia/ACS. Chest x-ray to evaluate for consolidation/ infiltrate/ mass/ pulmonary congestion and Urinalysis. Patient felt hot to the touch, rectal temp obtained 99.2, had subsequent moderate bowel movement following. Differential Diagnosis Differential Diagnoses: The differential diagnosis associated with the presentation includes (Gastroenteritis, colitis, diverticulitis, obstruction, C. diff) Admission/Observation Consideration of admission/observation: Escalation of care including admission/observation considered (See narrative above and course narrative for further detail) Lab Data [facility] Lab Attestation statement: I reviewed the patient's lab results. (See course narrative for further detail) 10/20/23 12:07 10/20/23 12:07 Labs: Lab Results 10/20/23 Range/Units 12:07 WBC 7.9 (4.8-10.8) X10*3/uL RBC 3.75 L D (4.20-5.50) X10*6/uL Hgb 12.5 D (12.0-16.0) g/dl Hct 38.0 D (37.0-47.0) % MCV 101.3 H (80.0-98.0) fL MCH 33.3 H (27.0-33.0) pg MCHC 32.9 (31.0-35.0) g/dl RDW 14.7 (11.0-16.0) % Plt Count 460 H D (160-400) X10*3/uL MPV 9.9 (9.4-12.3) fL Immature Gran % (Auto) 0.4 (0.0-0.4) % Neut % (Auto) 75.3 H (45-73) % Lymph % (Auto) 10.0 L (20-40) % [place] % (Auto) 12.8 H (2-11) % Eos % (Auto) 1.1 (0-4) % Baso % (Auto) 0.4 (0-2) % Lymph # (Auto) 0.8 L (1.2-4.9) X10*3/uL [place] # (Auto) 1.0 (0.1-1.2) X10*3/uL Eos # (Auto) 0.1 (0.0-0.4) X10*3/uL Baso # (Auto) 0.0 (0.0-0.2) X10*3/uL Abs Immat Gran (auto) 0.03 (0.00-0.03) X10*3/uL Absolute Neuts (auto) 5.9 (2.0-8.3) x10*3/uL Absolute Nucleated RBC 0.000 (0.0-0.012) X10*3/uL Nucleated RBC % (auto) 0.0 (0.0-0.2) /100WBC Sodium 135 (135-145) mmol/L Potassium 4.2 (3.3-5.1) mmol/L Chloride 101 (96-108) mmol/L Carbon Dioxide 24 (22-29) mmol/L Anion Gap 17 (12-20) BUN 18 H (9-16) mg/dL Creatinine 0.85 (0.5-1.4) mg/dL Estim Creat Clear Calc 48.3 Estimated GFR > 60 Random Glucose 249 H (60-115) mg/dL Lactic Acid 1.1 (0.5-2.0) mmol/L Calcium 8.9 D (8.4-10.2) mg/dL Total Bilirubin 0.5 (0.0-1.0) mg/dL AST 8 (5-31) U/L ALT 5 (0-31) U/L Alkaline Phosphatase 74 (39-117) U/L Total Protein 6.3 L (6.5-8.0) g/dL Albumin 3.2 L (3.5-5.0) g/dL Lipase 8 (8-78) U/L Urine Color Yellow Urine Appearance Turbid Urine pH 5.5 (5.0-9.0) Ur Specific [place] 1.015 (1.005-1.025) Urine Protein 100 (2+) H (Neg-Trace) mg/dL Urine Glucose (UA) Negative (Negative) mg/dL Urine Ketones Trace (Negative) mg/dL Urine Blood Moderate (2+) H (Negative) Urine Nitrite Negative (Negative) Ur Leukocyte Esterase Large (3+) H (Negative) Urine RBC 6-10 H (0-2) /HPF Urine WBC >50 H (0-5) /HPF Urine WBC Clumps Present Ur Squamous Epith Cells 3-5 (0-2) /HPF Urine Bacteria 3+ (None Seen) Hyaline Casts 0-2 (0-2) /LPF COVID-19 (CRISTINO) Negative (Negative) COVID-19 Clin Com See Note Influenza Type A (YANA) Negative (Negative) Influenza Type B (YANA) Negative (Negative) Influenza A & B Note See Note Independent Historian Clinical information obtained from an independent historian. History obtained from or confirmed by: Spouse and EMS External Record Review External record reviewed: Inpatient record Critical Care Time Critical Care Time Critical Care Time: Yes Total Critical Care Time: 60 Attestation: I personally attest to this critical care time spent taking care of the patient exclusive of all other billable procedures was approximately 60 minutes including initial evaluation of patient, ordering tests, EKG interpretation, medical consultation, documentation, re-evaluation. Discharge Plan Discharge Clinical Impression: Urinary tract infection, Constipation, Seizure Patient Disposition: Admitted As Inpatient Interventions: Admission Worksheet (ED) Last Done: 10/20/23 16:20 Discharge Date/Time: 10/20/23 16:42
--- NOTE | 2023-10-20 12:07 | PC.NURSE ---
22gIV placed in the right forearm - labs obtained/sent to lab. IV access wrapped w/ gauze for safety precautions. straight catheterization performed. 800ml of cloudy dark yellow urine noted immediately post output. urine sample obtained/sent to lab. purewick placed post catheterization. pt repositioned to comfort. no sob/wob noted. respirations remain even and unlabored. call joshi placed within reach.
[2023-10-20 12:20] LABS: MANUAL DIFF FLAG NO
[2023-10-20 12:23] LABS: Appearance Urine Turbid; Color Urine Yellow; Glucose Urine UA Negative (Negative); Leukocyte Esterase Urine Large (3+) (Negative); Nitrite Urine Negative (Negative); PH 5.5 (5.0-9.0); Specific Gravity - Urine 1.015 (1.005-1.025); UMIC TRIGGER UACC YES; Urine Blood Moderate (2+) (Negative); Urine Ketones Trace mg/dL (Negative); Urine Protein 100 (2+) mg/dL (Neg-Trace)
[2023-10-20 12:27] LABS: Basophils Percent Auto 0.4 % (0-2); Eosinophils Absolute Auto 0.1 X10*3/uL (0.0-0.4); Eosinophils Percent Auto 1.1 % (0-4); Hemoglobin 12.5 g/dl (12.0-16.0); Imm Gran Abs Auto 0.03 X10*3/uL (0.00-0.03); Imm Gran Pct Auto 0.4 % (0.0-0.4); Lymphocytes Absolute Auto 0.8 X10*3/uL (1.2-4.9); Mean Corpuscular HGB Conc 32.9 g/dl (31.0-35.0); Mean Corpuscular Hemoglobin 33.3 pg (27.0-33.0); Mean Corpuscular Volume 101.3 fL (80.0-98.0); Mean Platelet Volume 9.9 fL (9.4-12.3); Monocytes Percent Auto 12.8 % (2-11); Neutrophils Absolute Auto 5.9 x10*3/uL (2.0-8.3); Neutrophils Percent Auto 75.3 % (45-73); Platelet Count 460 X10*3/uL (160-400); Red Blood Count 3.75 X10*6/uL (4.20-5.50); Red Cell Distribution Width 14.7 % (11.0-16.0); White Blood Count 7.9 X10*3/uL (4.8-10.8)
[2023-10-20 12:34] LABS: Bacteria Urine 3+ (None Seen); Hyaline Casts Urine 0-2 /LPF (0-2); UACC Culture Trigger YES; WBC Clumps Urine Present; WBC Urine >50 /HPF (0-5)
[2023-10-20] MEDS: diazePAM 10 MG/2 ML CARTRIDGE 2.5 MG IVPUSH (12:34)
[2023-10-20 12:35] LABS: Lactic Acid 1.1 mmol/L (0.5-2.0)
[2023-10-20 12:40] LABS: IDNOW Serial# 9DB6401D; Influenza A Negative (Negative); Influenza B2 Negative (Negative)
[2023-10-20 12:41] LABS: COVID-19 Test Negative (Negative); IDNOW Serial# 152EDE1D
--- NOTE | 2023-10-20 12:42 | PC.NURSE ---
PT HAD A SHORT SEIZURE LAST APPROX 30 SEC, HER SPOUSE CALLED STAFF TO BEDSIDE. LEFT GAZE, RIGID EXTREMITIES, SHE REQUIRED INCREASED O2 SUPPORT DURING HER SEIZURE, SHE WAS MEDICATED SZ ACTIVITY STOPPED SHORTLY FOLLOWING, SECOND EPISODE LASTED APPROX 90SEC. HER O2 100 ON 4L NC,
[2023-10-20 12:47] LABS: Alanine Aminotransferase 5 U/L (0-31); Albumin Level 3.2 g/dL (3.5-5.0); Alkaline Phosphatase 74 U/L (39-117); Anion Gap 17 (12-20); Aspartate Amino Transferase 8 U/L (5-31); Bilirubin Total 0.5 mg/dL (0.0-1.0); Blood Urea Nitrogen 18 mg/dL (9-16); Calcium 8.9 mg/dL (8.4-10.2); Carbon Dioxide 24 mmol/L (22-29); Chloride 101 mmol/L (96-108); Creatinine Clr Calc Pharmacy 48.3; Estimated Glomerular Filt Rate > 60; Glucose Random 249 mg/dL (60-115); Lipase 8 U/L (8-78); Potassium 4.2 mmol/L (3.3-5.1); Sodium 135 mmol/L (135-145); Total Protein 6.3 g/dL (6.5-8.0)
[2023-10-20] MEDS: levETIRAcetam in NaCl (iso-os) 1,000 MG/100 ML PIGGYBACK 400 MG IV ×2 (12:51→19:32)
--- NOTE | 2023-10-20 12:54 | PC.NURSE ---
medication administered via IV pump at this time. pt remains on 2L via NC. no sob/wob noted. pt resting in no apparent distress. bedside for support. call joshi placed within reach.
[2023-10-20] MEDS: diazePAM 10 MG/2 ML CARTRIDGE 5 MG IVPUSH (13:13)
--- NOTE | 2023-10-20 13:38 | PC.NURSE ---
pt seemingly lethargic/staring off to the side/gazing at this time. pt responsive to verbal stimuli w/o any issues. pt responds to questions appropriately. pt remains alert and oriented to self only at this time. pt continues to be sinus tachy on the cardiac nurse specialist as well as hypertensive. pt remains on 2L via NC at this time. respirations remain even and unlabored. medication administered per provider order. bedside. call joshi placed within reach.
--- NOTE | 2023-10-20 13:54 | P.HPHOSP_ITS ---
History of Present Illness Date of Service: 10/20/23 Attending physician on admission: Ronald Roman Chief Complaint: Nausea, vomiting, abd pain 78-year-old female with a PMH significant for?CAD, CKD stage 3, vascular dementia, type 1 diabetes, GERD, HTN, HLD, hypothyroidism, POTS, recurrent UTIs, seizure disorder, dysphagia, and chronically wheelchair-bound recently admitted from 10/12/29 to 10/15 with nausea and vomiting and was 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 She is seen in the ED rather frequently and this 4th visit in about 4 weeks for similar symptoms. Patient is not able to provider history and according to the , she has not have a bowel movement in 4 days and was having nausea and vomitting and abomen seemed distended. She has chronic UTIs. Pt was last treated for ESBL UTI in August 2023?with a 10-day course of meropenem Subesequently, she developed C Diff infection and completed 14-day treatment. While in the ED today, she had a witnessed 2 seizure lasting 90s seconds and 30 seconds and was given Keppra IV; according to the , she did not take morning dose of keppra. After the seizure, she became less responsive, confused and seems to be in post- ictal state. As for abdoiminal distention, she has had BM in the hospital and abdomen is no longer distended. UA is positive again and given meropenem. The further states her oral intake has decreased along with urine output. Review of Systems 2 Review of Systems: Yes all other systems are reviewed and are negative [facility] Medical History Splenic infarct ESBL (extended spectrum beta-lactamase) producing bacteria infection Esophageal dilatation PPD positive Hyperkalemia Glaucoma Retinopathy QT prolongation POTS (postural orthostatic tachycardia syndrome) Orthostatic hypotension Neuropathy Hypothyroid Hypercholesterolemia HTN (hypertension) GERD (gastroesophageal reflux disease) DM type 1 (diabetes mellitus, type 1) Dementia Vitamin B12 deficiency CKD (chronic kidney disease), stage III CAD (coronary artery disease) COVID-19 Social History Household Members: Spouse Housing: House Do you presently have visiting nurse or other home services: Yes (RN, EMPLOYEE RELATIONS DIRECTOR, PT, OT comes in once to thrice a week) Unable to assess alcohol history related to: Unable to respond Alcohol intake: never Comment: transfer to [facility] for endoscopy Patient Tobacco Use Status: Never used Tobacco Smoked in Last 30 Days: No e-Cigarette/Vaping Use: Never Used Second Hand Smoke Exposure: No Use of substances other than those prescribed or required for medical reasons: No Currently Displaying Signs/Symptoms of Drug Intoxication Withdrawal: No Have you been hit, kicked, punched, or otherwise hurt by someone within the past year? If so, by whom?: No Do you feel safe in your current relationship?: Yes Spiritual Healthcare Practices: [facility] Advance Directives: Yes Advance Directives on File: Yes Advance Directives Date on File: 03/26/23 Do you have thoughts of harming others: None Do you have a plan to hurt others: No Plan Recently lost weight without trying: Unsure Nutrition Risks: No Nutritional Risk Patient : No service: No Current occupational status: retired Meds Allergies Allergy/AdvReac Type Severity Reaction Status Date / Time Sulfa (Sulfonamide Allergy Severe RASH/HIVES, Verified 10/20/23 10:01 Antibiotics) hives [SULFA (SULFONAMIDE ANTIBIOTICS)] insulin aspart Allergy Unknown HIVES Verified 10/20/23 10:01 [From NOVOLOG U-100 INSULIN ASPART] lactose Allergy Unknown Unknown Verified 10/20/23 10:01 levofloxacin [From LEVAQUIN] AdvReac Intermediate BLOOD Verified 10/20/23 10:01 SUGAR DROPS Home Medications Medication Instructions Recorded Confirmed Last Taken Type Lactobacillus rhamnosus GG 10 1 cap PO DAILY 10/14/21 10/20/23 10/12/23 History billion cell capsule (Culturelle) cholecalciferol (vitamin D3) 125 125 mcg PO DAILY@1700 10/14/21 10/20/23 10/12/23 History mcg (5,000 unit) tablet (Vitamin D3) cyanocobalamin (vitamin B-12) 500 500 mcg PO DAILY 10/14/21 10/20/23 10/12/23 History mcg tablet insulin lispro 100 unit/mL 0 - 2 unit subcut DAILY@1730 10/14/21 10/20/23 10/12/23 History subcutaneous cartridge (Humalog U-100 Insulin) insulin lispro 100 unit/mL 3 - 4 unit subcut DAILY@1130 10/14/21 10/20/23 10/12/23 History subcutaneous cartridge (Humalog U-100 Insulin) insulin lispro 100 unit/mL 4 unit subcut DAILY 10/14/21 10/20/23 10/12/23 History subcutaneous cartridge (Humalog U-100 Insulin) simvastatin 20 mg tablet 20 mg PO BEDTIME 10/14/21 10/20/23 10/11/23 History sodium chloride 1 gram tablet 2 tab PO BID@0900,1700 01/20/22 10/20/23 10/12/23 History insulin lispro 100 unit/mL 1 sliding scale dose subcut TIDAC 03/12/22 10/20/23 10/12/23 History subcutaneous solution (Humalog U-100 Insulin) ascorbic acid (vitamin C) 500 mg 500 mg PO BID@0900,1700 03/25/23 10/20/23 10/12/23 History tablet cranberry fruit 450 mg tablet 450 mg PO DAILY 03/25/23 10/20/23 10/12/23 History estradiol 0.01% (0.1 mg/gram) 0.5 appful vaginal MOWEFR 03/25/23 10/20/23 10/11/23 History vaginal cream (Estrace) ferrous fumarate 324 mg (106 mg 324 mg PO DAILY 08/28/23 10/20/23 10/12/23 History iron) tablet insulin glargine-yfgn 100 unit/mL 8 unit subcut BEDTIME 08/28/23 10/20/23 10/11/23 History subcutaneous solution levetiracetam 500 mg tablet 500 mg PO BID@0900,1700 08/28/23 10/20/23 10/12/23 History (Keppra) menthol 0.44 %-zinc oxide 20.6 % 1 appl topical BID PRN Skin 08/28/23 10/20/23 Unknown History topical ointment (Calmoseptine) Irritation albuterol sulfate 90 mcg/actuation 2 puff inhalation BID@1030,1830 10/13/23 10/20/23 Unknown History aerosol inhaler Shortness Of Breath Or Wheezing ceramides 1,3,6-II (CeraVe topical 1 appl topical BEDTIME 10/13/23 10/20/23 10/11/23 History cream) omeprazole 40 mg capsule,delayed 40 mg PO DAILY@0630 10/13/23 10/20/23 10/12/23 History release methenamine hippurate 1 gram tablet 1 g PO BID 10/20/23 10/20/23 Unknown History Physical Exam 2 Vital Signs and Narrative: Vital Signs: Last Vital Signs Temp 98.7 F 10/20/23 12:47 Pulse 104 H 10/20/23 13:40 Resp 22 H 10/20/23 13:40 BP 183/96 H 10/20/23 13:40 Pulse Ox 100 10/20/23 13:40 O2 Del Method Nasal Cannula 10/20/23 13:40 O2 Flow Rate 2 10/20/23 13:40 BMI result Body Mass Index 23.5 Constitutional: Alert, but not following commands Mental Status: usually oriented to self, place but right now not saying much Eyes: Pupils are equal, round, and reactive to light. Ear, Nose, and Throat: Oropharynx clear, mucous membranes moist. Ears and nose without deformities.. Respiratory: Clear to auscultation bilaterally. No wheezing, rales, or rhonchi. Cardiovascular: S1, S2 regular. No murmurs, rubs, or gallops. Gastrointestinal: Abdomen soft, non-tender, non-distended. Normal bowel sounds. Neurologic: Not able to assess as not following direction, but will reassess when more alert Skin: Warm, dry. Musculoskeletal: No cyanosis or clubbing. Extremities: No edema. Psychiatric: confused Results Labs 10/20/23 20:18 10/20/23 12:07 Labs: Laboratory Results - last 24 hr 10/20/23 12:07 MCV 101.3 H MCH 33.3 H MCHC 32.9 RDW 14.7 Plt Count 460 H D MPV 9.9 Immature Gran % (Auto) 0.4 Neut % (Auto) 75.3 H Lymph % (Auto) 10.0 L [place] % (Auto) 12.8 H Eos % (Auto) 1.1 Baso % (Auto) 0.4 Lymph # (Auto) 0.8 L [place] # (Auto) 1.0 Eos # (Auto) 0.1 Baso # (Auto) 0.0 Abs Immat Gran (auto) 0.03 Absolute Neuts (auto) 5.9 Absolute Nucleated RBC 0.000 Nucleated RBC % (auto) 0.0 Anion Gap 17 Estim Creat Clear Calc 48.3 Estimated GFR > 60 Random Glucose 249 H Lactic Acid 1.1 Calcium 8.9 D Total Bilirubin 0.5 AST 8 ALT 5 Alkaline Phosphatase 74 Total Protein 6.3 L Albumin 3.2 L Lipase 8 Urine Color Yellow Urine Appearance Turbid Urine pH 5.5 Ur Specific [place] 1.015 Urine Protein 100 (2+) H Urine Glucose (UA) Negative Urine Ketones Trace Urine Blood Moderate (2+) H Urine Nitrite Negative Ur Leukocyte Esterase Large (3+) H Urine RBC 6-10 H Urine WBC >50 H Urine WBC Clumps Present Ur Squamous Epith Cells 3-5 Urine Bacteria 3+ Hyaline Casts 0-2 COVID-19 (CRISTINO) Negative COVID-19 Clin Com See Note Influenza Type A (YANA) Negative Influenza Type B (YANA) Negative Influenza A & B Note See Note Assessment and Plan (1) UTI (urinary tract infection): Status: Resolved Plan 78-year-old female with a PMH significant for?CAD, CKD stage 3, vascular dementia, type 1 diabetes, GERD, HTN, HLD, hypothyroidism, POTS, recurrent UTIs, seizure disorder, dysphagia, and chronically wheelchair-bound who presents to the ED with nausea and vomiting, abdominal distention and witnessed seizure in the ED, she's found to have UTI UTI--has h/o ESBL, culture pending -continue Meropenem Constipation--has had BM in the ED and no distention noted. should be on regular bowel regimen Diet-- states patient eats puree and thin liquid Type 1 diabetes SSI, Lantus Diabetic diet Sugar check Q6 Hx of seizure, missed dose this morning, resulting in seizure Continue Keppra, if not abl to take PO then IV, GERD PPI HLD Continue statin HTN Continue lisinopril Full Code DVT Prophylaxis: Heparin Pt is in general not doing well at home resulting in frequent ED visits and hospitalizations, unfortunately, will not be interested in rehab Admission for at least 2 midnights for management of UTI needing IV Abx, breakthrough seizure with posticl state med surg with cardiac monitoring Quality Stroke Does the patient have a stroke diagnosis?: No VTE Prior VTE?: No VTE Risk Level:: Medical - moderate - high VTE Device Contraindication: Treatment Not Tolerated VTE Drug Contraindication: N/A - Med Ordered
--- NOTE | 2023-10-20 14:03 | PC.NURSE ---
pt and speaking w/ hospitalist at this time.
[2023-10-20] MEDS: Insulin Lispro 100 UNIT/ML 3 ML VIAL SUBCUT ×2 (15:20→17:16)
[2023-10-20 15:21] LABS: Glucose, Whole Blood 268 mg/dL (60-115)
[2023-10-20] MEDS: 0.9 % Sodium Chloride Flush 3 ML SYRINGE IVFLUSH (15:21)
--- NOTE | 2023-10-20 15:22 | PC.NURSE ---
POC obtained/ insulin administered per sliding scale. pt continues to be sinus tachy on the ekg monitor tech as well as hypertensive. admitting provider aware at this time. pt continues to be lethargic/disoriented/in post-ictal state. LUE has intermittent tremors. pt easily aroused to verbal stimuli. no sob/wob noted. respirations remain even and unlabored. bedside. call joshi placed within reach.
--- NOTE | 2023-10-20 15:44 | PHA.MEDREC ---
Pharmacy Consult ? Medication Reconciliation Pharmacy has completed the medication reconciliation. Glargine reduced to 8 units recently. This is how pt takes bolus insulin: 4 units with breakfast, 3-4 units with lunch (3 if BS <150, 4 if BS > 150), and 0-2 units with dinner ( 0 if BS <150, 2 if BS> 150). On top of that, pt has a sliding scale with meals. 201-250: 1 u, 251-300: 2 u, 301-350 4 u, >350 4 u. Haris
--- NOTE | 2023-10-20 16:29 | PC.NURSE ---
admission worksheet completed. tech notified/aware that transportation is needed.
--- NOTE | 2023-10-20 16:41 | PC.NURSE ---
pt being transported upstairs at this time.
[2023-10-20 17:10] LABS: Glucose, Whole Blood 231 mg/dL (60-115)
--- NOTE | 2023-10-20 17:54 | PC.NURSE ---
upon admission assessment pt neuro noted to not be intact and not pt's baseline according to . informed. stat CT obtained. DIRECTOR VALIDATION at bedside assessing pt upon return from CT
--- NOTE | 2023-10-20 18:21 | PM.EVENT ---
Event Note Date of Service: 10/20/23 Event Note: Pt hat witnessed generalized seizure with rigid extremities, left gaze lasting 30sec and then 90sec, received iv valium with subsequent post ictal state. Per ED RN, pt unable to follow commands, lethargic appearing, left hand tremor, no other focal deficit. On arrival to S3, floor RN noted left sided extremity weakness, r facial droop- at 1700. Remains post-ictal, unable to follow most commands. Provider called to bedside. Pt observed PERRLA with left gaze, unable to assess EOMI as participate in this exam. Slight R side facial droop with loss of nasolabial fold though will not follow direction to smile. Tongue midline, symmetric rise of soft palate. Marked LUE/LLE weakness with positive drift. Symmetric patellar reflexes. Head CT negative for any acute intracranial abnormality including hemorrhage Plan: -CTA head/neck -discussed with neurology, TPA/TNK contraindicated in setting of possible acute CVA -ASA 300mg OR, continue asa 81mg daily -lipid profile pending, atrovastatin 80mg daily -MRI brain -neurochecks q2h -stroke edu -bedside swallow eval, keep NPO given post ictal state -neuro consult -Given 1g iv keppra per neuro -seizure precautions -transfer to med/tele Time Spent With Patient Time: Total time managing care of this patient today ____ minutes.
[2023-10-20 18:35] LABS: Cholesterol 139 mg/dL (<200); HDL Cholesterol 47 mg/dL (>40); LDL Cholesterol Calculated 67 mg/dL (<100); Triglycerides 127 mg/dL (<150)
[2023-10-20] MEDS: iohexoL 350 MG/ML 100 ML INFUS..BTL IV (18:37)
[2023-10-20] MEDS: Lactated Ringers 1,000 ML 100 ML IVCONT (19:32)
[2023-10-20 20:18] LABS: Glucose, Whole Blood 146 mg/dL (60-115)
[2023-10-20 20:22] LABS: Hematocrit 32.9 % (37.0-47.0); Hemoglobin 11.1 g/dl (12.0-16.0); Mean Corpuscular HGB Conc 33.7 g/dl (31.0-35.0); Mean Corpuscular Hemoglobin 33.5 pg (27.0-33.0); Mean Corpuscular Volume 99.4 fL (80.0-98.0); Mean Platelet Volume 9.4 fL (9.4-12.3); NRBC Pct Auto 0.3 /100WBC (0.0-0.2); Platelet Count 444 X10*3/uL (160-400); Red Blood Count 3.31 X10*6/uL (4.20-5.50); Red Cell Distribution Width 14.5 % (11.0-16.0); White Blood Count 6.8 X10*3/uL (4.8-10.8)
[2023-10-20 20:28] LABS: Prothrombin Time 12.2 SEC (11.1-13.3)
--- NOTE | 2023-10-20 20:39 | PC.NURSE ---
This senior copywriter received a message from Sameera TAMEZ alerting me of change in patient's neuro assessment. Provider did speak with neurologist controls operator molded goods. Pt will be NPO due to being post ictal and change in status. Please see provider note/orders for updated assessment/orders.
[2023-10-20] MEDS: Heparin Sodium,Porcine/1/2NS 25,000 UNIT/250 ML IV.SOLN 8.96 UNIT IVCONT (22:07)
--- NOTE | 2023-10-20 22:08 | PC.NURSE ---
This RN took over patient care at change of shift at 18:45, transfer order placed at 18:19 for patient to be transferred to medical-telemetry floor due to new onset weakness noted by previous RN. Nursing scanner supervisor made aware by previous RN, awaiting bed assignment. This RN medicated Pt per new MD orders placed in NOV, IV in L forearm noted to be infiltrated and was removed by this RN, Neurological assessment preformed per MD orders and documented in Pts chart, Order for heparin drip in NOV, unable to start due to pending lab results. Report given to accepting Medical- Telemtry nurse Janiya and Pt transferred to medical- telemetry floor at 19:30, family asking to speak with MD at bedside, Sameera TAMEZ notified.
[2023-10-20] MEDS: Sodium Phosphate,Mono-Dibasic 133 ML ENEMA PR (22:45)
[2023-10-21] VITALS (12 sets, daily range): BP systolic 132–169; BP diastolic 61–102; PULSE 97–126; RESP 17–20; TEMP 36.7–37.9; O2SAT 92–100; BMI 23.5
--- NOTE | 2023-10-21 | EEG_ITS ---
This is a 16 channel portable EEG. The patient is reported unresponsive during the tracing. Background EEG rhythm is mostly theta to delta range with intermittent sharp and slow wave complexes in the right hemispheric areas. Photic stimulation and hyperventilation were not performed. Cardiac lead did not reveal any significant abnormality. No other abnormalities were noted. IMPRESSION: Abnormal EEG suggestive of diffuse bihemispheric dysfunction with possible right hemispheric seizure focus resulting in partial or complex partial seizure disorder. MD ISHAAN Castillo/FLORESITA / [phone]
[2023-10-21 00:44] LABS: CDiff Gene PCR NEGATIVE (Negative)
[2023-10-21 01:37] LABS: Glucose, Whole Blood 185 mg/dL (60-115)
[2023-10-21 04:33] LABS: PTT Heparin Drip 52.9 SEC (53-77.9)
[2023-10-21] MEDS: Heparin Sodium,Porcine 5,000 UNIT/ML VIAL 2600 UNIT IVPUSH ×2 (04:41→20:49)
[2023-10-21] MEDS: Acetaminophen Supp 650 MG SUPP.RECT PR (05:17)
[2023-10-21] MEDS: Lactated Ringers 1,000 ML 100 ML IVCONT (05:17)
--- NOTE | 2023-10-21 05:25 | PC.NURSE ---
Pt transferred to MTU from at approx 2130. Pt alert and oriented to self, slow to respond, quiet, but arousable to voice. Following commands without difficulty. Initially unable to turn head to the left and gaze to the left however over the night patient improved and able to turn head to the left and move eyes to the left. Continues with right sided facial droop previously noted prior to arrival to MTU. Left sided weakness noted. Hand grasps weak but patient able to still feel sensation to extremities. Family at bedside throughout shift, continued education throughout the night. Heparin gtt initiated, PTT obtained and titrated per protocol. Tmax 100.2, MD Driscoll notified and rectal tylenol ordered. Patient NPO. LR infusing as ordered. ST with occasional PACs on cardiac montior. See shift assessment for further details.
[2023-10-21] MEDS: Insulin Lispro 100 UNIT/ML 3 ML VIAL SUBCUT ×2 (06:47→11:10)
[2023-10-21 06:50] LABS: Glucose, Whole Blood 307 mg/dL (60-115)
[2023-10-21 08:37] LABS: Hematocrit 29.1 % (37.0-47.0); Hemoglobin 9.6 g/dl (12.0-16.0); Mean Corpuscular Hemoglobin 33.7 pg (27.0-33.0); Mean Corpuscular Volume 102.1 fL (80.0-98.0); Mean Platelet Volume 10.4 fL (9.4-12.3); Platelet Count 415 X10*3/uL (160-400); Red Blood Count 2.85 X10*6/uL (4.20-5.50); Red Cell Distribution Width 14.6 % (11.0-16.0); White Blood Count 9.2 X10*3/uL (4.8-10.8)
[2023-10-21 08:43] LABS: INTERNATIONAL NORM RATIO 1.2 (0.9-1.1)
--- NOTE | 2023-10-21 08:51 | P.CNNE_ITS ---
History of Present Illness Data of Consult Service Date: 10/21/23 Primary Care Provider: Bob Stephenson MD HPI Reason for consult: Seizure disorder 78-year-old female with a PMH significant for?CAD, CKD stage 3, vascular dementia, type 1 diabetes, GERD, HTN, HLD, hypothyroidism, POTS, recurrent UTIs, seizure disorder, dysphagia, and chronically wheelchair-bound recently admitted from 10/12/29 to 10/15 with nausea and vomiting and was 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 While in emergency room she was noted to have to seizures and was treated with Keppra. When I saw her she was in the room with family members around. She was not in any distress. Review of Systems 2 Review of Systems: No pain or headache. No recent cold or flu-like illness PMFSH Past Medical History Medical History Splenic infarct ESBL (extended spectrum beta-lactamase) producing bacteria infection Esophageal dilatation PPD positive Hyperkalemia Glaucoma Retinopathy QT prolongation POTS (postural orthostatic tachycardia syndrome) Orthostatic hypotension Neuropathy Hypothyroid Hypercholesterolemia HTN (hypertension) GERD (gastroesophageal reflux disease) DM type 1 (diabetes mellitus, type 1) Dementia Vitamin B12 deficiency CKD (chronic kidney disease), stage III CAD (coronary artery disease) COVID-19 Social History Social History Household Members: Spouse Housing: House Do you presently have visiting nurse or other home services: Yes (RN, CLINICAL TRIAL SPECIALIST, PT, OT comes in once to thrice a week) Unable to assess alcohol history related to: Unable to respond Alcohol intake: never Comment: transfer to [facility] for endoscopy Patient Tobacco Use Status: Never used Tobacco Smoked in Last 30 Days: No e-Cigarette/Vaping Use: Never Used Second Hand Smoke Exposure: No Use of substances other than those prescribed or required for medical reasons: No Currently Displaying Signs/Symptoms of Drug Intoxication Withdrawal: No Have you been hit, kicked, punched, or otherwise hurt by someone within the past year? If so, by whom?: No Do you feel safe in your current relationship?: Yes Spiritual Healthcare Practices: roman catholic Advance Directives: Yes Advance Directives on File: Yes Advance Directives Date on File: 03/26/23 Do you have thoughts of harming others: None Do you have a plan to hurt others: No Plan Recently lost weight without trying: Unsure Nutrition Risks: No Nutritional Risk Patient : No service: No Current occupational status: retired Meds Allergies Allergy/AdvReac Type Severity Reaction Status Date / Time Sulfa (Sulfonamide Allergy Severe RASH/HIVES, Verified 10/20/23 10:01 Antibiotics) hives [SULFA (SULFONAMIDE ANTIBIOTICS)] insulin aspart Allergy Unknown HIVES Verified 10/20/23 10:01 [From NOVOLOG U-100 INSULIN ASPART] lactose Allergy Unknown Unknown Verified 10/20/23 10:01 levofloxacin [From LEVAQUIN] AdvReac Intermediate BLOOD Verified 10/20/23 10:01 SUGAR DROPS Active Medications: Current Medications Acetaminophen (Acetaminophen 325 Mg Tablet) 650 mg PO Q6H PRN PRN Reason: Pain, Mild (Pain Scale 1-3) Acetaminophen (Acetaminophen Supp 650 Mg Supp.Rect) 650 mg DE Q4H PRN PRN Reason: Fever Last Admin: 10/21/23 05:17 Dose: 650 mg Al Hydroxide/Mg Hydroxide (Magnesium Hydrox/Alum Hydrox 30 Ml Oral.Susp) 30 ml PO Q4H PRN PRN Reason: Heartburn/Nausea Albuterol Sulfate (Albuterol Sulfate 90 Mcg 8 Gm Inhaler) 2 puff INHALE BID@1030,1830 [facility] Last Admin: 10/20/23 22:17 Dose: Not Given Ascorbic Acid (Ascorbic Acid 500 Mg Tablet) 500 mg PO BID@0900,1700 [facility] Aspirin (Aspirin Enteric Coated 81 Mg Tablet.) 81 mg PO DAILY [facility] Atorvastatin Calcium (Atorvastatin Calcium 80 Mg Tablet) 80 mg PO DAILY [facility] Cyanocobalamin (Cyanocobalamin (Vitamin B-12) 500 Mcg Tablet) 500 mcg PO DAILY [facility] Dextrose (Dextrose 50 % 25 Gm/50 Ml Syringe) 25 gm IVPUSH Q15M PRN; Protocol PRN Reason: per Hypoglycemia Standing Ord. Ferrous Sulfate (Ferrous Sulfate 324 Mg Tablet.) 324 mg PO DAILY [facility] Glucose (Glucose Gel 15 Gm Gel..Gram.) 15 gm PO Q15M PRN; Protocol PRN Reason: per Hypoglycemia Standing Ord. Heparin Sodium (Porcine) (Heparin Sodium,Porcine 5,000 Unit/Ml Vial) 2,600 unit 40 unit/kg (2600 unit) IVPUSH PROTOCOL BOLUS PRN; Protocol PRN Reason: 40 unit/kg - Heparin Protocol Last Admin: 10/21/23 04:41 Dose: 2,600 unit Heparin Sodium (Porcine) (Heparin Sodium,Porcine 5,000 Unit/Ml Vial) 5,100 unit 80 unit/kg (5100 unit) IVPUSH PROTOCOL BOLUS PRN; Protocol PRN Reason: 80 unit/kg - Heparin Protocol Meropenem 1 gm/ Sodium (Chloride) 100 mls @ 200 mls/hr IV Q12H [facility] Last Infusion: 10/21/23 01:20 Dose: Infused Lactated Ringer's (Lr) 1,000 mls @ 100 mls/hr IVCONT .Q10H [facility] Last Admin: 10/21/23 05:17 Dose: 100 mls/hr Heparin Sodium/Sodium Chloride (Heparin Sodium,Porcine/1/2ns) 25,000 unit in 250 mls @ 0 mls/hr IVCONT .Q0M [facility]; Protocol Last Titration: 10/21/23 04:37 Dose: 16 units/kg/hr, 10.24 mls/hr Levetiracetam (Keppra) 500 mg in 100 mls @ 400 mls/hr IV Q12H [facility] Insulin Glargine (Insulin Glargine,Hum.Rec.Anlog 100 Unit/Ml 10 Ml Vial) 7 unit SUBCUT DAILY [facility] Insulin Human Lispro (Insulin Lispro 100 Unit/Ml 3 Ml Vial) 0 unit SUBCUT QIDACHS [facility]; Protocol Last Admin: 10/21/23 06:47 Dose: 8 unit Melatonin (Melatonin 3 Mg Tablet) 3 mg PO BEDTIME PRN PRN Reason: Insomnia Non-Formulary Medication (Estradiol [Estrace]) 0.5 appful VAGINAL MOWEFR [facility] Omeprazole (Omeprazole 40 Mg Capsule.Dr) 40 mg PO DAILY@0630 [facility] Last Admin: 10/21/23 05:23 Dose: Not Given Ondansetron HCl (Ondansetron Hcl 4 Mg/2 Ml Vial) 4 mg IVPUSH Q8H PRN PRN Reason: Nausea and Vomiting Sodium Biphosphate/Sodium Phosphate (Sodium Phosphate,Hart-Dibasic 133 Ml Enema) 133 ml DE DAILY PRN PRN Reason: Constipation Last Admin: 10/20/23 22:45 Dose: 133 ml Sodium Chloride (0.9 % Sodium Chloride Flush 3 Ml Syringe) 3 ml IVFLUSH QSHIFT [facility] Last Admin: 10/20/23 22:17 Dose: Not Given Sodium Chloride (Sodium Chloride Tab 1 Gm Tablet) 2 gm PO BID@0900,1700 [facility] Vitamin D (Cholecalciferol (Vitamin D3) 25 Mcg Tablet) 125 mcg PO DAILY@1700 [facility] Home Medications Medication Instructions Recorded Confirmed Last Taken Type Lactobacillus rhamnosus GG 10 1 cap PO DAILY 10/14/21 10/20/23 10/12/23 History billion cell capsule (Culturelle) cholecalciferol (vitamin D3) 125 125 mcg PO DAILY@1700 10/14/21 10/20/23 10/12/23 History mcg (5,000 unit) tablet (Vitamin D3) cyanocobalamin (vitamin B-12) 500 500 mcg PO DAILY 10/14/21 10/20/23 10/12/23 History mcg tablet insulin lispro 100 unit/mL 0 - 2 unit subcut DAILY@1730 10/14/21 10/20/23 10/12/23 History subcutaneous cartridge (Humalog U-100 Insulin) insulin lispro 100 unit/mL 3 - 4 unit subcut DAILY@1130 10/14/21 10/20/23 10/12/23 History subcutaneous cartridge (Humalog U-100 Insulin) insulin lispro 100 unit/mL 4 unit subcut DAILY 10/14/21 10/20/23 10/12/23 History subcutaneous cartridge (Humalog U-100 Insulin) simvastatin 20 mg tablet 20 mg PO BEDTIME 10/14/21 10/20/23 10/11/23 History sodium chloride 1 gram tablet 2 tab PO BID@0900,1700 01/20/22 10/20/23 10/12/23 History insulin lispro 100 unit/mL 1 sliding scale dose subcut TIDAC 03/12/22 10/20/23 10/12/23 History subcutaneous solution (Humalog U-100 Insulin) ascorbic acid (vitamin C) 500 mg 500 mg PO BID@0900,1700 03/25/23 10/20/23 10/12/23 History tablet cranberry fruit 450 mg tablet 450 mg PO DAILY 03/25/23 10/20/23 10/12/23 History estradiol 0.01% (0.1 mg/gram) 0.5 appful vaginal MOWEFR 03/25/23 10/20/23 10/11/23 History vaginal cream (Estrace) ferrous fumarate 324 mg (106 mg 324 mg PO DAILY 08/28/23 10/20/23 10/12/23 History iron) tablet insulin glargine-yfgn 100 unit/mL 8 unit subcut BEDTIME 08/28/23 10/20/23 10/11/23 History subcutaneous solution levetiracetam 500 mg tablet 500 mg PO BID@0900,1700 08/28/23 10/20/23 10/12/23 History (Keppra) menthol 0.44 %-zinc oxide 20.6 % 1 appl topical BID PRN Skin 08/28/23 10/20/23 Unknown History topical ointment (Calmoseptine) Irritation albuterol sulfate 90 mcg/actuation 2 puff inhalation BID@1030,1830 10/13/23 10/20/23 Unknown History aerosol inhaler Shortness Of Breath Or Wheezing ceramides 1,3,6-II (CeraVe topical 1 appl topical BEDTIME 10/13/23 10/20/23 10/11/23 History cream) omeprazole 40 mg capsule,delayed 40 mg PO DAILY@0630 10/13/23 10/20/23 10/12/23 History release methenamine hippurate 1 gram tablet 1 g PO BID 10/20/23 10/20/23 Unknown History Physical Exam 2 Vital Signs: Vital Signs: Last Vital Signs Temp 98.9 F 10/21/23 07:40 Pulse 113 H 10/21/23 07:40 Resp 20 10/21/23 07:40 BP 132/70 10/21/23 07:40 Pulse Ox 97 10/21/23 07:40 O2 Del Method Nasal Cannula 10/21/23 07:40 O2 Flow Rate 2 10/21/23 07:40 BMI result Body Mass Index 23.5 Neuro: Other: She is drowsy but I was able to wake her up. She answered simple questions. She told me her name and told me that her was in the room. 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 Face seems symmetrical. She was able to squeeze hands in both sides. Plantars were equivocal. Reflexes were absent. Speech was not dysarthric. Results Labs 10/21/23 07:50 02/04/24 12:07 Labs: Short CBC 10/20/23 10/20/23 10/21/23 Range/Units 12:07 20:18 07:50 WBC 7.9 6.8 9.2 (4.8-10.8) X10*3/uL Hgb 12.5 D 11.1 L 9.6 L (12.0-16.0) g/dl Hct 38.0 D 32.9 L 29.1 L (37.0-47.0) % Plt Count 460 H D 444 H 415 H (160-400) X10*3/uL BMP 10/20/23 12:07 Sodium 135 Potassium 4.2 Chloride 101 Carbon Dioxide 24 BUN 18 H Creatinine 0.85 Calcium 8.9 D Liver Function 10/20/23 Range/Units 12:07 Total Bilirubin 0.5 (0.0-1.0) mg/dL AST 8 (5-31) U/L ALT 5 (0-31) U/L Alkaline Phosphatase 74 (39-117) U/L Albumin 3.2 L (3.5-5.0) g/dL Urine 10/20/23 Range/Units 12:07 Urine Color Yellow Urine Appearance Turbid Urine pH 5.5 (5.0-9.0) Ur Specific [place] 1.015 (1.005-1.025) Urine Protein 100 (2+) H (Neg-Trace) mg/dL Urine Glucose (UA) Negative (Negative) mg/dL Head CT revealed moderately severe diffuse cerebral atrophy and mgup-hy-tnlsakcy chronic microvascular ischemic changes. CTA did not reveal any vascular stenosis. Assessment and Plan (1) Seizure: Status: Acute 78 years old woman with probably underlying moderate to severe dementia and significant physical disability for which she was using a walker to ambulate was noted to have 2 seizures in emergency room and was treated with levetiracetam. Seizure disorder was common in this age group. My recommendation is to continue levetiracetam 500 mg twice a day and if possible obtain an EEG. Procedures Date of Service Date of Service: 10/21/23
[2023-10-21] MEDS: 0.9 % Sodium Chloride Flush 3 ML SYRINGE IVFLUSH ×2 (09:43→15:30)
[2023-10-21] MEDS: levETIRAcetam in NaCl (iso-os) 500 MG/100 ML PIGGYBACK 400 MG IV (09:43)
[2023-10-21] MEDS: Insulin Glargine,Hum.rec.anlog 100 UNIT/ML 10 ML VIAL 7 UNIT SUBCUT (09:47)
[2023-10-21 10:58] LABS: Glucose, Whole Blood 192 mg/dL (60-115)
--- NOTE | 2023-10-21 11:04 | HO.PM.IMPN ---
Subjective Subjective Date of Service: 10/21/23 Interval History: Pt in the evening of yesterday, had new localized symptoms of weakness on left side, facial droop and stroke work up initiated with CT and CTA of head and neck showing no acute CVA, however CTA did show bilateral pulmonary embolism partially visualized and she was started on IV heparin drip. She seems more alert but still not able to have a meaningful conversation, she seems weak on left side. Review of Systems Review of Systems: Yes Unobtainable due to mental status Physical Exam Vital Signs: Vital Signs: Last Vital Signs Temp 98.9 F 10/21/23 07:40 Pulse 113 H 10/21/23 07:40 Resp 20 10/21/23 07:40 BP 132/70 10/21/23 07:40 Pulse Ox 97 10/21/23 07:40 O2 Del Method Nasal Cannula 10/21/23 07:40 O2 Flow Rate 2 10/21/23 07:40 BMI result Body Mass Index 23.5 General: Alert oriented to lynne, Resp: CTA bilateral CVS: S1,S2,RRR, some swelling of both legs GI: +BS, NT, no distention Skin: No rash Neuro:she seems to have some weakness with hand grasp in left hand and move less on the left leg Psych: appropriate affect Objective Data Active Medications Acetaminophen (Acetaminophen 325 Mg Tablet) 650 mg PO Q6H PRN PRN Reason: Pain, Mild (Pain Scale 1-3) Acetaminophen (Acetaminophen Supp 650 Mg Supp.Rect) 650 mg DE Q4H PRN PRN Reason: Fever Last Admin: 10/21/23 05:17 Dose: 650 mg Documented By: HUGO Al Hydroxide/Mg Hydroxide (Magnesium Hydrox/Alum Hydrox 30 Ml Oral.Susp) 30 ml PO Q4H PRN PRN Reason: Heartburn/Nausea Albuterol Sulfate (Albuterol Sulfate 90 Mcg 8 Gm Inhaler) 2 puff INHALE BID@1030,1830 [facility] Last Admin: 10/20/23 22:17 Dose: Not Given Documented By: HUGO Non-Admin Reason: patient unable to partcipate in therapy Ascorbic Acid (Ascorbic Acid 500 Mg Tablet) 500 mg PO BID@0900,1700 [facility] Last Admin: 10/21/23 09:47 Dose: Not Given Documented By: KATIE Non-Admin Reason: NPO Aspirin (Aspirin Enteric Coated 81 Mg Tablet.) 81 mg PO DAILY [facility] Last Admin: 10/21/23 09:47 Dose: Not Given Documented By: KATIE Non-Admin Reason: NPO Atorvastatin Calcium (Atorvastatin Calcium 80 Mg Tablet) 80 mg PO DAILY [facility] Last Admin: 10/21/23 09:47 Dose: Not Given Documented By: KATIE Non-Admin Reason: NPO Cyanocobalamin (Cyanocobalamin (Vitamin B-12) 500 Mcg Tablet) 500 mcg PO DAILY [facility] Last Admin: 10/21/23 09:47 Dose: Not Given Documented By: KATIE Non-Admin Reason: NPO Dextrose (Dextrose 50 % 25 Gm/50 Ml Syringe) 25 gm IVPUSH Q15M PRN; Protocol PRN Reason: per Hypoglycemia Standing Ord. Ferrous Sulfate (Ferrous Sulfate 324 Mg Tablet.) 324 mg PO DAILY [facility] Last Admin: 10/21/23 09:47 Dose: Not Given Documented By: KATIE Non-Admin Reason: NPO Glucose (Glucose Gel 15 Gm Gel..Gram.) 15 gm PO Q15M PRN; Protocol PRN Reason: per Hypoglycemia Standing Ord. Heparin Sodium (Porcine) (Heparin Sodium,Porcine 5,000 Unit/Ml Vial) 2,600 unit 40 unit/kg (2600 unit) IVPUSH PROTOCOL BOLUS PRN; Protocol PRN Reason: 40 unit/kg - Heparin Protocol Last Admin: 10/21/23 04:41 Dose: 2,600 unit Documented By: HUGO Heparin Sodium (Porcine) (Heparin Sodium,Porcine 5,000 Unit/Ml Vial) 5,100 unit 80 unit/kg (5100 unit) IVPUSH PROTOCOL BOLUS PRN; Protocol PRN Reason: 80 unit/kg - Heparin Protocol Meropenem 1 gm/ Sodium (Chloride) 100 mls @ 200 mls/hr IV Q12H [facility] Last Infusion: 10/21/23 01:20 Dose: Infused Documented By: HUGO Lactated Ringer's (Lr) 1,000 mls @ 100 mls/hr IVCONT .Q10H [facility] Last Admin: 10/21/23 05:17 Dose: 100 mls/hr Documented By: HUGO Heparin Sodium/Sodium Chloride (Heparin Sodium,Porcine/1/2ns) 25,000 unit in 250 mls @ 0 mls/hr IVCONT .Q0M [facility]; Protocol Last Titration: 10/21/23 04:37 Dose: 16 units/kg/hr, 10.24 mls/hr Documented By: MARIBEL Co-signed By: HUGO Levetiracetam (Keppra) 500 mg in 100 mls @ 400 mls/hr IV Q12H [facility] Last Infusion: 10/21/23 10:04 Dose: Infused Documented By: KATIE Insulin Glargine (Insulin Glargine,Hum.Rec.Anlog 100 Unit/Ml 10 Ml Vial) 7 unit SUBCUT DAILY [facility] Last Admin: 10/21/23 09:47 Dose: 7 unit Documented By: KATIE Insulin Human Lispro (Insulin Lispro 100 Unit/Ml 3 Ml Vial) 0 unit SUBCUT QIDACHS [facility]; Protocol Last Admin: 10/21/23 06:47 Dose: 8 unit Documented By: HUGO Melatonin (Melatonin 3 Mg Tablet) 3 mg PO BEDTIME PRN PRN Reason: Insomnia Non-Formulary Medication (Estradiol [Estrace]) 0.5 appful VAGINAL MOWEFR [facility] Omeprazole (Omeprazole 40 Mg Capsule.Dr) 40 mg PO DAILY@0630 [facility] Last Admin: 10/21/23 05:23 Dose: Not Given Documented By: HUGO Non-Admin Reason: NPO Ondansetron HCl (Ondansetron Hcl 4 Mg/2 Ml Vial) 4 mg IVPUSH Q8H PRN PRN Reason: Nausea and Vomiting Sodium Biphosphate/Sodium Phosphate (Sodium Phosphate,[place]-Dibasic 133 Ml Enema) 133 ml DE DAILY PRN PRN Reason: Constipation Last Admin: 10/20/23 22:45 Dose: 133 ml Documented By: HUGO Sodium Chloride (0.9 % Sodium Chloride Flush 3 Ml Syringe) 3 ml IVFLUSH QSHIFT [facility] Last Admin: 10/21/23 09:43 Dose: 3 ml Documented By: KATIE Sodium Chloride (Sodium Chloride Tab 1 Gm Tablet) 2 gm PO BID@0900,1700 [facility] Last Admin: 10/21/23 09:48 Dose: Not Given Documented By: KATIE Non-Admin Reason: NPO Vitamin D (Cholecalciferol (Vitamin D3) 25 Mcg Tablet) 125 mcg PO DAILY@1700 [facility] Labs 10/21/23 07:50 10/20/23 12:07 Labs: Laboratory Results - last 24 hr 10/20/23 10/20/23 10/20/23 12:07 15:16 17:06 MCV 101.3 H MCH 33.3 H MCHC 32.9 RDW 14.7 Plt Count 460 H D MPV 9.9 Immature Gran % (Auto) 0.4 Neut % (Auto) 75.3 H Lymph % (Auto) 10.0 L [place] % (Auto) 12.8 H Eos % (Auto) 1.1 Baso % (Auto) 0.4 Lymph # (Auto) 0.8 L [place] # (Auto) 1.0 Eos # (Auto) 0.1 Baso # (Auto) 0.0 Abs Immat Gran (auto) 0.03 Absolute Neuts (auto) 5.9 Absolute Nucleated RBC 0.000 Nucleated RBC % (auto) 0.0 PT INR aPTT Heparin Protocol Anion Gap 17 Estim Creat Clear Calc 48.3 Estimated GFR > 60 POC Glucose 268 H 231 H Random Glucose 249 H Lactic Acid 1.1 Calcium 8.9 D Total Bilirubin 0.5 AST 8 ALT 5 Alkaline Phosphatase 74 Total Protein 6.3 L Albumin 3.2 L Triglycerides 127 Cholesterol 139 LDL Cholesterol, Calc 67 HDL Cholesterol 47 Lipase 8 Urine Color Yellow Urine Appearance Turbid Urine pH 5.5 Ur Specific [place] 1.015 Urine Protein 100 (2+) H Urine Glucose (UA) Negative Urine Ketones Trace Urine Blood Moderate (2+) H Urine Nitrite Negative Ur Leukocyte Esterase Large (3+) H Urine RBC 6-10 H Urine WBC >50 H Urine WBC Clumps Present Ur Squamous Epith Cells 3-5 Urine Bacteria 3+ Hyaline Casts 0-2 C. difficile Tox B Gene COVID-19 (CRISTINO) Negative COVID-19 Clin Com See Note Influenza Type A (YANA) Negative Influenza Type B (YANA) Negative Influenza A & B Note See Note 10/20/23 10/20/23 10/20/23 19:33 20:18 23:20 MCV 99.4 H MCH 33.5 H MCHC 33.7 RDW 14.5 Plt Count 444 H MPV 9.4 Immature Gran % (Auto) Neut % (Auto) Lymph % (Auto) [place] % (Auto) Eos % (Auto) Baso % (Auto) Lymph # (Auto) [place] # (Auto) Eos # (Auto) Baso # (Auto) Abs Immat Gran (auto) Absolute Neuts (auto) Absolute Nucleated RBC 0.020 H Nucleated RBC % (auto) 0.3 H PT 12.2 INR 1.0 aPTT Heparin Protocol 28.0 L Anion Gap Estim Creat Clear Calc Estimated GFR POC Glucose 146 H Random Glucose Lactic Acid Calcium Total Bilirubin AST ALT Alkaline Phosphatase Total Protein Albumin Triglycerides Cholesterol LDL Cholesterol, Calc HDL Cholesterol Lipase Urine Color Urine Appearance Urine pH Ur Specific [place] Urine Protein Urine Glucose (UA) Urine Ketones Urine Blood Urine Nitrite Ur Leukocyte Esterase Urine RBC Urine WBC Urine WBC Clumps Ur Squamous Epith Cells Urine Bacteria Hyaline Casts C. difficile Tox B Gene NEGATIVE COVID-19 (CRISTINO) COVID-19 Clin Com Influenza Type A (YANA) Influenza Type B (YANA) Influenza A & B Note 10/21/23 10/21/23 10/21/23 00:52 04:17 06:37 MCV MCH MCHC RDW Plt Count MPV Immature Gran % (Auto) Neut % (Auto) Lymph % (Auto) [place] % (Auto) Eos % (Auto) Baso % (Auto) Lymph # (Auto) [place] # (Auto) Eos # (Auto) Baso # (Auto) Abs Immat Gran (auto) Absolute Neuts (auto) Absolute Nucleated RBC Nucleated RBC % (auto) PT INR aPTT Heparin Protocol 52.9 L D Anion Gap Estim Creat Clear Calc Estimated GFR POC Glucose 185 H 307 H Random Glucose Lactic Acid Calcium Total Bilirubin AST ALT Alkaline Phosphatase Total Protein Albumin Triglycerides Cholesterol LDL Cholesterol, Calc HDL Cholesterol Lipase Urine Color Urine Appearance Urine pH Ur Specific [place] Urine Protein Urine Glucose (UA) Urine Ketones Urine Blood Urine Nitrite Ur Leukocyte Esterase Urine RBC Urine WBC Urine WBC Clumps Ur Squamous Epith Cells Urine Bacteria Hyaline Casts C. difficile Tox B Gene COVID-19 (CRISTINO) COVID-19 Clin Com Influenza Type A (YANA) Influenza Type B (YANA) Influenza A & B Note 10/21/23 10/21/23 07:50 10:55 MCV 102.1 H MCH 33.7 H MCHC 33.0 RDW 14.6 Plt Count 415 H MPV 10.4 Immature Gran % (Auto) Neut % (Auto) Lymph % (Auto) [place] % (Auto) Eos % (Auto) Baso % (Auto) Lymph # (Auto) [place] # (Auto) Eos # (Auto) Baso # (Auto) Abs Immat Gran (auto) Absolute Neuts (auto) Absolute Nucleated RBC 0.000 Nucleated RBC % (auto) 0.0 PT 14.0 H INR 1.2 H aPTT Heparin Protocol Anion Gap Estim Creat Clear Calc Estimated GFR POC Glucose 192 H Random Glucose Lactic Acid Calcium Total Bilirubin AST ALT Alkaline Phosphatase Total Protein Albumin Triglycerides Cholesterol LDL Cholesterol, Calc HDL Cholesterol Lipase Urine Color Urine Appearance Urine pH Ur Specific [place] Urine Protein Urine Glucose (UA) Urine Ketones Urine Blood Urine Nitrite Ur Leukocyte Esterase Urine RBC Urine WBC Urine WBC Clumps Ur Squamous Epith Cells Urine Bacteria Hyaline Casts C. difficile Tox B Gene COVID-19 (CRISTINO) COVID-19 Clin Com Influenza Type A (YANA) Influenza Type B (YANA) Influenza A & B Note Microbiology Microbiology Results: Microbiology 10/20/23 Unknown Urine Culture - Preliminary Urine clean catch - Urine robertson top Gram negative tong Assessment and Plan (1) Seizure: Status: Acute (2) Urinary tract infection: Status: Acute (3) Constipation: Status: Acute Plan 78-year-old female with a PMH significant for?CAD, CKD stage 3, vascular dementia, type 1 diabetes, GERD, HTN, HLD, hypothyroidism, POTS, recurrent UTIs, seizure disorder, dysphagia, and chronically wheelchair-bound who presents to the ED with nausea and vomiting, abdominal distention and witnessed seizure in the ED, she's found to have UTI Change in MS/left sided weaknesss, concern for stroke.. CT head and CTA are negative for stroke. Exam is not consistent and difficulty due to dementia and confusion, MRI is planned to better assess.. Has been assess by neuro, no candidate for intervention. Continue ASA, Lipitor Hx of seizure, missed dose of keppra on day of admission and had seizure Continue Keppra, if not able to take PO then IV, Pulmonary embolism--seen on CTA, may needed dedicated CT of chest, but at least 24 hours after contrast, -heparin drip, US of the legs to rule DVT, follow CBC UTI--has h/o ESBL, culture gram negative, sensitivity pending -continue Meropenem Constipation--has had BM in the ED and no distention noted. should be on regular bowel regimen Diet-- states patient eats puree and thin liquid, Speech eval before diet Type 1 diabetes- SSI, Lantus Diabetic diet Sugar check Q6 GERD PPI HLD Continue statin HTN Continue lisinopril if able to take po Full Code DVT Prophylaxis: Heparin Pt is in general not doing well at home resulting in frequent ED visits and hospitalizations, unfortunately, will not be interested in rehab need for inpatient: acite stroke work upa, seizure with AMS, UTI with metabolic encephalopathy and on IV Abx Discussed with Quality Stroke Does the patient have a stroke diagnosis?: No VTE Prior VTE?: No VTE Risk Level:: Medical - moderate - high VTE Device Contraindication: Treatment Not Tolerated VTE Drug Contraindication: N/A - Med Ordered
[2023-10-21 11:07] LABS: PTT Heparin Drip 82.2 SEC (53-77.9)
[2023-10-21 11:09] LABS: Adenovirus F 40/41 Not Detected (Not Detect.); Astrovirus Not Detected (Not Detect.); Campylobacter Not Detected (Not Detect.); Cryptosporidium Not Detected (Not Detect.); Cyclospora cayetanensis Not Detected (Not Detect.); E. coli EAEC Not Detected (Not Detect.); E. coli EPEC Not Detected (Not Detect.); E. coli ETEC Not Detected (Not Detect.); E. coli STEC Not Detected (Not Detect.); Entamoeba histolytica Not Detected (Not Detect.); Giardia lamblia Not Detected (Not Detect.); Norovirus GI/GII Not Detected (Not Detect.); Plesiomonas shigelloides Not Detected (Not Detect.); Rotavirus A Not Detected (Not Detect.); Salmonella Not Detected (Not Detect.); Sapovirus Not Detected (Not Detect.); Shigella sp./EIEC Not Detected (Not Detect.); Vibrio Not Detected (Not Detect.); Vibrio Cholerae Not Detected (Not Detect.); Yersinia enterocolitica Not Detected (Not Detect.)
--- NOTE | 2023-10-21 11:38 | P.EN_ITS ---
Event Note Date of Service: 10/21/23 Event Note: GROUND INTELLIGENCE OFFICER called for patient becoming suddenly unresponsive, vitals ok, O2 sat Ok, blood sugar 199, some response to painful stimuli. no obvious seizure activity.Not opening eyes, no dilated pupils. Neuro exam is otherwise limit, a repeat stat CT of head no acute finding. Pt has become more awake, but still confused and Neuro recommeds increasing keppra to 750 mg twice daily. MRI will be performed later Time Spent With Patient Time: Total time managing care of this patient today ____ minutes.
[2023-10-21 12:02] LABS: ABG Base Excess 5.7 mmol/L; ABG HCO3 29 mmol/L (22-26); ABG pCO2 38 mmHg (32-45); ABG pH 7.48 (7.35-7.45); ABG pO2 130 mmHg (83-108)
--- NOTE | 2023-10-21 12:30 | HO.WOUND ---
Wound Consult: Initial 78yr old F? admitted to [facility] on 10/20/23 - See progress notes and H&P for detailed history.? Wound consult placed for Left Heel Wound POA. At time of arrival t bedside pt was current TRACK WATCHMAN in progress - will attempt consultation at future and and or time. ?
--- NOTE | 2023-10-21 12:49 | MHC.SLORD ---
Speech Language Pathology Order Status: Received order for DRAPERY SEAMSTRESS consult. Pt not appropriate for bedside swallow eval this morning d/t somnolent state. Per EMR, rapid response was called d/t the pt suddently becoming unresponsive. Repeat STAT head CT was requested. DRAPERY SEAMSTRESS consult on hold.
--- NOTE | 2023-10-21 13:36 | MHC.CM.PN ---
CM MET WITH PTS AND CHILDREN, PT WAS OFF UNIT HAVING AN MRI PTS REPORTS SHE LIVES AT HOME WITH HIM AND REQUIRES ASSISTANCE WITH CARE HE SAYS SHE HAS THE PACE PROGRAM THROUGH [facility] AND THEY PROVIDE ANY SERVICES SHE MAY NEED RIGHT NOW SHE IS ACTIVE WITH PT, OT, SECURITY THREAT ANALYST AND PACKING CLERK SERVICES PT HAS USES A WHEEL CHAIR HCP AND [facility] ON FILE IMM DELIVERED DCP: [facility] PT WILL NEED BLS TRANSPORT- DOES NOT WANT THEM TO TRANSPORT VIA [facility] DID LAST TIME
[2023-10-21] MEDS: Dextrose 5 % and Lactated Ring 1,000 ML 80 ML IVCONT (13:47)
--- NOTE | 2023-10-21 14:15 | PC.NURSE ---
Assumed care at 0700, bedside report given by PM RN. Upon initial assessment pt opening eyes to name and tracking, following commands, and responding to questions appropriately. Pt. AO to self only, speech mumbled/soft-spoken but coherent. Pupils 2mm bilaterally, sluggish to light but PERRL. DENIS, severe weakness present in LUE and LLE. slight R facial droop present. HR sustaining 90s-100s, SBPs 120s-140s. Family at bedside and updated by this RN. Insulin administered at approx. 1000 per EMAR- at this time pt. slightly more drowsy, yet still arousable and opening eyes to name, answering questions and following commands. At approx 1100 this RN enters pt. room for care. At this time, pt. not responding to verbal stimuli, minimal response to painful stimuli. GENERAL REPAIR MECHANIC called by this RN. VSS- 140/64, HR96, RR 18, 02 97% on 4L NC, POC 192. MD, RT, wireless sales manager, welfare worker, and PLANE CAPTAIN at bedside. Stat head CT ordered by . Heparin gtt paused per . Repeat VS 132/61, HR 97, RR 17, 02 99% on 4L. Pt. transported to CT by welfare worker and PLANE CAPTAIN. Family at bedside, updated by and this RN. Bandera called to bedside to assist with family coping. Report given to Margaret AZPATA.
--- NOTE | 2023-10-21 15:21 | PC.NURSE ---
received report from Margaret ZAPATA in regards heparin drip adjustments. Heparin drip was on hold for 2 1/2 hrs for the ORAL HYGIENIST and the tests . heparin was restarted at 13:51 as per RN report. RN spoke with the pharmacy , Tomás and PTT-HD will be scheduled for 1999 .
[2023-10-21] MEDS: levETIRAcetam 250 MG in 0.9 % Sodium Chloride 100 ML 410 MG IV (15:29)
[2023-10-21 17:49] LABS: Glucose, Whole Blood 163 mg/dL (60-115)
[2023-10-21] MEDS: ondansetron HCL 4 MG/2 ML VIAL IVPUSH (18:05)
--- NOTE | 2023-10-21 18:39 | PM.EVENT ---
Event Note Date of Service: 10/21/23 Event Note: GI Consult-Full note dictated. History from her , multiple family members, and the EMR. Imp/Recs: 78 yo female with multiple medical issues and with recent further decline including seizures, pulmonary emboli, worsening mental status, and difficulty with maintaining oral intake. She has a baseline esophageal dysmotility disorder for which she has been maintained on a basically pureed diet at home under the dedicated care of her . She has had recent intermittent vomiting of undigested food and some constipation. Her CT of her neck describes her known patulous esophagus with food debris. A CT of her abdomen from about a week ago was negative for any bowel obstruction. Her abdominal exam is presently soft, +BS, nondistended, and NT. Her mental status is presently poor and much below her baseline. She does answer to her name. From a GI standpoint it appears that her baseline GI issues in regard to her esophageal dysmotility are worsening along with her overall clinical status. It does not appear that it would be safe to try to feed her given her current mental status and high risk of aspiration in that regard, as well as in regard to her baseline esophageal dysmotility. Her head of the bed should be kept elevated and I have switched her to an IV PPI in regard to her increased risk of aspiration and increased risk of GI bleeding while on anticoagulation. I would continue supportive care otherwise. I did raise the subject of level of care and code status with her and family members. Her advised me that she is a Full Code , but I did recommend that he and his family discuss it among themselves and the hospitalist staff. I would try to refrain from any aggressive, invasive measures such as enteral feedings via NG tube or PEG, life support, etc. Please advise me if I can be of any further assistance during her hospitalization. Thanks. Time Spent With Patient Time: Total time managing care of this patient today ____ minutes.
[2023-10-21] MEDS: OLANZapine 10 MG VIAL 2.5 MG IM (18:55)
[2023-10-21] MEDS: Pantoprazole Sodium 40 MG/10 ML VIAL IVPUSH (18:57)
[2023-10-21] MEDS: Aspirin 300 MG SUPP.RECT PR (19:28)
[2023-10-21 20:22] LABS: PTT Heparin Drip 52.3 SEC (53-77.9)
[2023-10-21] MEDS: levETIRAcetam 750 MG in 0.9 % Sodium Chloride 100 ML 430 MG IV (20:23)
[2023-10-21] MEDS: Heparin Sodium,Porcine/1/2NS 25,000 UNIT/250 ML IV.SOLN 10.24 UNIT IVCONT (20:42)
--- NOTE | 2023-10-21 21:03 | PC.NURSE ---
second unit of RBC infused 350 ml
[2023-10-21 21:07] LABS: MANUAL DIFF FLAG NO
[2023-10-21 21:11] LABS: Basophils Percent Auto 0.5 % (0-2); Hematocrit 28.5 % (37.0-47.0); Hemoglobin 9.5 g/dl (12.0-16.0); Imm Gran Abs Auto 0.02 X10*3/uL (0.00-0.03); Imm Gran Pct Auto 0.4 % (0.0-0.4); Lymphocytes Absolute Auto 0.6 X10*3/uL (1.2-4.9); Lymphocytes Percent Auto 11.3 % (20-40); Mean Corpuscular HGB Conc 33.3 g/dl (31.0-35.0); Mean Corpuscular Hemoglobin 33.7 pg (27.0-33.0); Mean Corpuscular Volume 101.1 fL (80.0-98.0); Mean Platelet Volume 9.5 fL (9.4-12.3); Monocytes Absolute Auto 0.7 X10*3/uL (0.1-1.2); Monocytes Percent Auto 12.1 % (2-11); Neutrophils Absolute Auto 4.3 x10*3/uL (2.0-8.3); Neutrophils Percent Auto 75.7 % (45-73); Platelet Count 448 X10*3/uL (160-400); Red Blood Count 2.82 X10*6/uL (4.20-5.50); Red Cell Distribution Width 14.5 % (11.0-16.0); White Blood Count 5.7 X10*3/uL (4.8-10.8)
[2023-10-21 21:13] LABS: VBG Base Excess 4.3 mmol/L; VBG HCO3 26 mmol/L (22-26); VBG pCO2 32 mmHg; VBG pH 7.52 (7.32-7.43); VBG pO2 137 mmHg
[2023-10-21 21:14] LABS: Venous Blood Gas Refer to POC result
[2023-10-21 21:18] LABS: Lactic Acid 1.6 mmol/L (0.5-2.0)
[2023-10-21 21:27] LABS: Alanine Aminotransferase < 5 U/L (0-31); Albumin Level 3.1 g/dL (3.5-5.0); Alkaline Phosphatase 58 U/L (39-117); Anion Gap 16 (12-20); Aspartate Amino Transferase 9 U/L (5-31); Bilirubin Total 0.5 mg/dL (0.0-1.0); Blood Urea Nitrogen 18 mg/dL (9-16); Calcium 8.8 mg/dL (8.4-10.2); Carbon Dioxide 23 mmol/L (22-29); Chloride 103 mmol/L (96-108); Creatinine Clr Calc Pharmacy 51.9; Estimated Glomerular Filt Rate > 60; Glucose Random 182 mg/dL (60-115); Magnesium 1.6 mg/dL (1.6-2.6); Phosphorus 2.7 mg/dL (2.7-4.5); Potassium 4.2 mmol/L (3.3-5.1); Sodium 138 mmol/L (135-145); Total Protein 5.8 g/dL (6.5-8.0)
[2023-10-21] MEDS: OLANZapine 10 MG VIAL 5 MG IM (22:11)
--- NOTE | 2023-10-21 23:57 | PC.NURSE ---
severe agitation and restlessness tonight , pt is moving her arms in non voluntary manner and is hitting her face with her left hand . medicated with Zyprexa x 2 as per MD order with some effect after 2nd dose . Dr Alexander evaluated pt x 2 tonight at the bedside. CT scan of the brain ordered tonight
--- NOTE | 2023-10-22 | EEG_ITS ---
This is a 16 channel EEG with an EKG lead. The patient was reported restless and confused during the tracing. Background EEG rhythm is low to medium amplitude, mixed theta, beta with no obvious asymmetry or paroxysmal tendency. Frequent lead and muscle artifacts are noted. No sharp wave spikes or paroxysmal tendency noted. Cardiac lead does not reveal any significant abnormality. IMPRESSION: Yesterday's EEG revealed right hemispheric abnormalities that are not seen on this EEG. Otherwise, this EEG revealed generalized slowing, suggestive of encephalopathy. MD ISHAAN Castillo/FLORESITA / [id number]
[2023-10-22] MEDS: Dextrose 5 % and Lactated Ring 1,000 ML 80 ML IVCONT ×2 (00:37→11:44)
[2023-10-22] MEDS: 0.9 % Sodium Chloride Flush 3 ML SYRINGE IVFLUSH ×3 (00:37→16:13)
[2023-10-22 03:09] VITALS: BP 169/77; PULSE 106; RESP 18; TEMP 37.6; O2SAT 95
--- NOTE | 2023-10-22 04:16 | CONS_ITS ---
DATE OF SERVICE: 10/21/2023 REASON FOR CONSULTATION: Esophageal dysmotility and poor p.o. intake, constipation. HISTORY OF PRESENT ILLNESS: This has been obtained from the patient's , her family, and the medical record. She is presently not able to give any history due to a decline in mental status. The patient is a 78-year-old female well known to me with underlying history of esophageal dysmotility. The etiology of that is not entirely clear. She has undergone previous workup with esophageal motility studies that were negative for achalasia. A barium swallow in 2021 described a slow transit of barium from the mouth to the stomach with some diminished esophageal peristalsis. There was no sign of any esophageal stricture nor obstruction at that time. Her most recent upper endoscopy in February of 2022 described a dilated esophagus with diminished peristalsis with some retained liquid and small amounts of food despite the patient having been on a strict full liquid diet. There was no evidence of any esophageal stricture, but there was a moderate-sized hiatal hernia. The gastroesophageal junction was dilated up to an 18 mm balloon at that time. She has been maintained on oral PPIs. Since that time, she has been maintained on a basically pureed diet at home with the assistance of her . She has not had any further clinical signs of esophageal obstruction, as had been the case in January of 2022 when she presented to the ER with an esophageal obstruction and underwent upper endoscopy at that time with the finding of some ulceration and friability at the gastroesophageal junction, but without any sign of definitive stricture. She has now been admitted to the hospital with a worsening clinical status including seizure activity, decline in mental status, and pulmonary emboli. A CT scan of her neck described the esophagus as patulous and containing some food material. In discussing things with her this evening, she has not really had any solid food in at least several days. She has had some vomiting of old food intermittently. There has been no sign of bleeding. Her bowel movements have been irregular with some constipation that has required enemas. Since admission here, she has been kept n.p.o. due to her poor mental status. She has also been started on IV heparin in regard to the finding of pulmonary emboli. She has been seen by Neurology and her antiseizure medications have been adjusted. She has had a MRI and a CT scan of the brain. Her present medications include acetaminophen, albuterol inhaler, vitamin C, 81 mg aspirin, atorvastatin, vitamin D, iron, IV heparin insulin, Keppra, melatonin, meropenem, Zyprexa, Zofran, omeprazole. PAST MEDICAL HISTORY: Insulin-dependent diabetes mellitus, esophageal dysmotility. Seizure disorder. Vascular dementia. Renal insufficiency. Coronary artery disease. Esophagitis. Hypertension. Hyperlipidemia. Hypothyroidism. POTS. UTIs. Splenic infarct. Glaucoma. SOCIAL HISTORY: She lives with her . She does not smoke nor use any alcohol. FAMILY HISTORY: Noncontributory. REVIEW OF SYSTEMS: Currently not obtainable, but overall her condition has worsened in regard to her mental status, her ability to maintain oral intake, and her very limited mobility. PHYSICAL EXAMINATION: GENERAL: The patient is an elderly female, who seems answers to her name, but does not respond otherwise. SKIN: Warm and dry. She is pale. ABDOMEN: Soft. Normal bowel sounds. Nondistended and nontender. LABORATORY DATA: As above. White blood cell count 9.2, hemoglobin 9.6, platelets 415,000. Normal electrolytes, BUN 18, creatinine 0.9, total bilirubin 0.5, alkaline phosphatase 74, AST 8, ALT 5, albumin 3.2, lipase 8. Stool GI panel was negative. Stool for C difficile was negative. She had a CT scan of her abdomen and pelvis on October 14 that described no evidence of any bowel obstruction nor intestinal distention. There is no evidence of any intraabdominal abscess nor free air. Gallstones were noted. IMPRESSION: From a strictly GI standpoint, the patient has had a decline in regard to her ability to maintain safe and adequate oral intake. Her baseline status in that regard is quite marginal in that she has been limited to a pureed diet in relation to the esophageal dysmotility disorder. However, now with her worsening mental status and multiple medical problems including seizures, worsening mental status, and pulmonary emboli, I think it would be even more difficult obviously to maintain safe and adequate oral intake due to a high risk of aspiration. The description of the esophagus with some food and her vomiting of undigested food goes along with her esophageal dysmotility and also poses an increased risk of aspiration in relation to her overall current status. Her abdominal exam does not appear to represent any type of obstruction at this time. At this point, I would continue supportive care and hold off on giving her any oral nutrition given her increased risk of aspiration. The head of the bed should be kept elevated. I have switched her to an IV PPI in regard to the increased risk of aspiration, as well as the fact that she is now on anticoagulation. However, otherwise I would continue supportive care. I did raise the subject of code status with the patient's and her family members. Her states that she is a full code, but I did recommend that he and his family discuss that among themselves as well as with the hospital staff. I would personally try to refrain from any aggressive or invasive measures such as enteral feedings by the nasogastric tube or G-tube. I would also try to refrain from putting her on life support given her overall current status. I advised to her and her family that I do not think any endoscopic procedures are required at this time and again I would try to avoid anything invasive given her current status. This has all been discussed with her and the family in detail. Please advise me if I can be of any further assistance during the hospitalization. Thank you for the consultation. MD YARITZA Adhikari/FLORESITA / [phone] MTDAnnmarie
[2023-10-22] MEDS: Pantoprazole Sodium 40 MG/10 ML VIAL IVPUSH ×2 (05:59→16:19)
[2023-10-22 07:41] VITALS: BP 157/73; PULSE 108; RESP 20; TEMP 36.9; O2SAT 98
[2023-10-22] MEDS: Insulin Lispro 100 UNIT/ML 3 ML VIAL SUBCUT ×2 (07:44→20:09)
[2023-10-22 07:47] LABS: Glucose, Whole Blood 259 mg/dL (60-115)
[2023-10-22] MEDS: Aspirin 300 MG SUPP.RECT PR (07:47)
--- NOTE | 2023-10-22 08:09 | HO.WOUND ---
Wound Consult: Initial 78yr old? admitted to [facility] [place] on 10/20/23 - See progress notes and H&P for detailed history.? Wound consult placed for Left Heel DTI and MASD POA.? Patient's at bedside and is agreeable to assessment and photo documentation.? Pt did not interact with environment did not open here eyes throughout assessment. The patients reports the patient had the DTI to the left heel at home and he was treating with air filled heel boots of note the left heel boot was flat when assessed - new heel protector boots ordered from storeroom to be sent to unit. He reports the patient has urinary and fecal incontinence at the baseline and wears plastic briefs at home. We discussed using two dry flow pads in place when in bed to assist with wicking moisture away from her skin - he reports understanding. He reports he provided regular interval times toilets and brief checks and changes once wet. Discussed using a barrier cream for prevention. Purewick in place and adjusted. Discontinue placing rolled facecloth between legs - patient anatomy appears conducive to Purewick placement. Intergluteal / Buttocks Etiology: ?MASD -IAD (Moisture Associated Skin Damage - Incontinence Associated Dermatitis) Wound Bed: Moist pink red tissue remains intact and blanchable throughout Drainage / Odor: None noted Edges: ? Mirrored Fior wound: Intact -? No Induration, Fluctuance or Warmth noted Pain: Non-responsive Goals of Treatment: ? barrier cream to protect from friction and moisture Right Lateral Heel Etiology: Stage 1 Pressure Injury ??Present on Admission Wound Bed: red pink intact nonblanchable tissue Drainage / Odor: None Edges: ? well defined Fior wound: Mckinley intact blanchable tissue - ? No Induration, Fluctuance or Warmth noted Pain: Non-responsive Goals of Treatment: ? Foam to protect from friction and aid in off loading along with boots Left Heel Etiology: Deep Tissue Injury ??Present on Admission Wound Bed:Intact Fluid filled bulla with maroon purple wound bed - fluctuance to bulla Drainage / Odor: None Edges: ? well defined Fior wound: Mckinley intact slow to keon tissue - ? No Induration Pain: Non-responsive Goals of Treatment: ? Foam to protect from friction and aid in off loading along with boots Recommendations: 1. Turn and Reposition every 2 hours and as needed for patient comfort.? Use pillows or wedges to support off loading positions. 2. Off Load all bony prominences with use of pillows and heel boots if needed.? Apply Preventative foams where needed. ? 3. Monitor for incontinence and moisture control, use barrier creams when needed for prevention and treatment. Purewick in place. 4. Provide adequate and supplemental nutrition.? 5. Order or Continue low air loss mattress. 6. When applicable maintain blood glucose levels per Providers order. 7. Bilateral Heels - Routine cleansing - Apply Foam dressing - peel back and assess Q shift change every 3 days PRN. Apply Heel Protector Boots from Storeroom (# [id number]). 8. Intergluteal and Perineal - Routine cleansing with with PH balance spray or wipes, pat dry. ?Apply thin layer of barrier cream to reddened area Reapply thin layer PRN after each episode of incontinence. 9. Sacrum - Routine cleansing - Apply Sacral Foam dressing - peel back and assess Q shift change every 3 days PRN. Re-consult wound care Nurse for wound deterioration or wound changes.
--- NOTE | 2023-10-22 08:43 | PM.HEMONCCN ---
Subjective - Subjective Chief complaint: Consult for: ? pulmonary embolism. Patient: new to practice Consult date: 10/22/23 Requesting Physician: Serjio. Primary Care Provider: Bob Stephenson MD Family Provider: Sachin. Medical Summary: DIAGNOSIS: PULMONARY EMBOLISM. HPI - Consult Narrative Reason for consult: Consult for: Anemia. Narrative: Lima Rene is a 78 year old lady, recently admitted from 10/12/29 to 10/15 with nausea and vomiting and was found to have splenic infarct for which was advised for conservative management. She is seen in the ED rather frequently and this is her 4th visit in about 4 weeks, for similar symptoms. Patient is not able to provider history and according to the , she has not have a bowel movement in 4 days and was having nausea and vomiting and abdomen seemed distended. She has chronic UTIs. Pt was last treated for ESBL UTI in August 2023?with a 10-day course of meropenem Subesequently, she developed C Diff infection and completed 14-day treatment. In the ED, she had a witnessed 2 seizure lasting 90s seconds and 30 seconds and was given Keppra IV; according to the , she did not take morning dose of keppra. After the seizure, she became less responsive, confused and seems to be in post-ictal state. As for abdoiminal distention, she has had BM in the hospital and abdomen is no longer distended. UA is positive again and given meropenem. The further states her oral intake has decreased along with urine output. CTA of the head and neck from 10/20 revealed: No hemodynamically significant stenosis. Partially evaluated bilateral upper lobe segmental/subsegmental pulmonary emboli. Dedicated CT angiogram of the chest is recommended for further evaluation. Scattered pulmonary nodules may be infectious/inflammatory. Attention on follow-up is recommended to monitor stability. Additional findings as above. CTA HEAD: No proximal vessel occlusion. Atherosclerosis with moderate to severe stenosis in the bilateral carotid siphons. With concern for PE she has been started on IV heparin. Review of Systems Review of Systems: Yes all other systems are reviewed and are negative [facility] Medical History: CAD, CKD stage 3, vascular dementia, type 1 diabetes, GERD, HTN, HLD, hypothyroidism, POTS, recurrent UTIs, seizure disorder, dysphagia, and chronically wheelchair-bound. Splenic infarct ESBL (extended spectrum beta-lactamase) producing bacteria infection Esophageal dilatation PPD positive Hyperkalemia Glaucoma Retinopathy QT prolongation POTS (postural orthostatic tachycardia syndrome) Orthostatic hypotension Neuropathy Hypothyroid Hypercholesterolemia HTN (hypertension) GERD (gastroesophageal reflux disease) DM type 1 (diabetes mellitus, type 1) Dementia Vitamin B12 deficiency CKD (chronic kidney disease), stage III CAD (coronary artery disease) COVID-19 Social History Household Members: Spouse Review of Systems - Constitutional Reports system reviewed and no additional complaints, except as documented, Reports lack of energy, Reports weight loss - Eyes Reports system reviewed and no additional complaints, except as documented - ENT Reports system reviewed and no additional complaints, except as documented - Cardiovascular Reports system reviewed and no additional complaints, except as documented - Respiratory Reports no additional respiratory complaints - Gastrointestinal Reports system reviewed and no additional complaints, except as documented - Genitourinary Reports no additional female genitourinary complaints - Musculoskeletal Reports system reviewed and no additional complaints, except as documented - Integumentary/Breasts Skin/Breast: Reports no additional skin complaints - Neurologic Reports system reviewed and no additional complaints, except as documented - Psychiatric Reports system reviewed and no additional complaints, except as documented - Endocrine Reports no additional endocrine complaints - Hematologic/Lymphatic Reports system reviewed and no additional complaints, except as documented - Allergic/Immunologic Reports system reviewed and no additional complaints, except as documented Oncology Screenings - ECOG Performance Status ECOG Performance Status: 2 [facility] Medical History: Medical History (Last Reviewed 10/20/23 @ 13:56 by Edward Bassett MD) CAD (coronary artery disease) CKD (chronic kidney disease), stage III Constipation COVID-19 Dementia DM type 1 (diabetes mellitus, type 1) Encephalopathy ESBL (extended spectrum beta-lactamase) producing bacteria infection Esophageal dilatation GERD (gastroesophageal reflux disease) Glaucoma HTN (hypertension) Hypercholesterolemia Hyperkalemia Hypothyroid Neuropathy Orthostatic hypotension POTS (postural orthostatic tachycardia syndrome) PPD positive Pulmonary embolism QT prolongation Retinopathy Seizure Splenic infarct Urinary tract infection Vitamin B12 deficiency Functional capacity: wheelchair bound Patient : No Social History: Social History (Last Reviewed 10/20/23 @ 13:56 by Edward Bassett MD) Living Situation History: Household Members: Spouse Housing: House Do you presently have visiting nurse or other home services: Yes Do you presently have visiting nurse or other home services comment: RN, [employer] ATT[employer], PT, OT comes in once to thrice a week Alcohol History: Unable to assess alcohol history related to: Unable to respond Tobacco History: Patient Tobacco Use Status: Never used Tobacco e-Cigarette/Vaping Use: Never Used Second Hand Smoke Exposure: No Advance Directives: Advance Directives Date on File: 03/26/23 Occupation Assessmet: service: No Current occupational status: retired Home Medications and Allergies Current Medications: Current Medications Acetaminophen (Acetaminophen 325 Mg Tablet) 650 mg PO Q6H PRN PRN Reason: Pain, Mild (Pain Scale 1-3) Acetaminophen (Acetaminophen Supp 650 Mg Supp.Rect) 650 mg UT Q4H PRN PRN Reason: Fever Last Admin: 10/21/23 05:17 Dose: 650 mg Al Hydroxide/Mg Hydroxide (Magnesium Hydrox/Alum Hydrox 30 Ml Oral.Susp) 30 ml PO Q4H PRN PRN Reason: Heartburn/Nausea Albuterol Sulfate (Albuterol Sulfate 90 Mcg 8 Gm Inhaler) 2 puff INHALE RBID@1030,1830 [facility] Last Admin: 10/22/23 07:48 Dose: Not Given Ascorbic Acid (Ascorbic Acid 500 Mg Tablet) 500 mg PO BID@0900,1700 [facility] Last Admin: 10/22/23 07:39 Dose: Not Given Aspirin (Aspirin Enteric Coated 81 Mg Tablet.) 81 mg PO DAILY [facility] Last Admin: 10/22/23 07:39 Dose: Not Given Aspirin (Aspirin 300 Mg Supp.Rect) 300 mg UT DAILY [facility] Last Admin: 10/22/23 07:47 Dose: 300 mg Atorvastatin Calcium (Atorvastatin Calcium 80 Mg Tablet) 80 mg PO DAILY [facility] Last Admin: 10/22/23 07:39 Dose: Not Given Cyanocobalamin (Cyanocobalamin (Vitamin B-12) 500 Mcg Tablet) 500 mcg PO DAILY [facility] Last Admin: 10/22/23 07:40 Dose: Not Given Dextrose (Dextrose 50 % 25 Gm/50 Ml Syringe) 25 gm IVPUSH Q15M PRN; Protocol PRN Reason: per Hypoglycemia Standing Ord. Ferrous Sulfate (Ferrous Sulfate 324 Mg Tablet.) 324 mg PO DAILY [facility] Last Admin: 10/22/23 07:40 Dose: Not Given Glucose (Glucose Gel 15 Gm Gel..Gram.) 15 gm PO Q15M PRN; Protocol PRN Reason: per Hypoglycemia Standing Ord. Heparin Sodium (Porcine) (Heparin Sodium,Porcine 5,000 Unit/Ml Vial) 2,600 unit 40 unit/kg (2600 unit) IVPUSH PROTOCOL BOLUS PRN; Protocol PRN Reason: 40 unit/kg - Heparin Protocol Last Admin: 10/21/23 20:49 Dose: 2,600 unit Heparin Sodium (Porcine) (Heparin Sodium,Porcine 5,000 Unit/Ml Vial) 5,100 unit 80 unit/kg (5100 unit) IVPUSH PROTOCOL BOLUS PRN; Protocol PRN Reason: 80 unit/kg - Heparin Protocol Heparin Sodium/Sodium Chloride (Heparin Sodium,Porcine/1/2ns) 25,000 unit in 250 mls @ 0 mls/hr IVCONT .Q0M CHRISTOPH; Protocol Last Titration: 10/22/23 04:17 Dose: 13 units/kg/hr, 8.32 mls/hr Dextrose/Lactated Ringer's (D5lr) 1,000 mls @ 80 mls/hr IVCONT .[id number] [facility] Last Admin: 10/22/23 00:37 Dose: 80 mls/hr Levetiracetam 750 mg/ Sodium (Chloride) 107.5 mls @ 430 mls/hr IV BID [facility] Last Infusion: 10/21/23 20:40 Dose: Infused Meropenem 1 gm/ Sodium (Chloride) 100 mls @ 200 mls/hr IV Q12H [facility] Last Infusion: 10/22/23 06:36 Dose: Infused Insulin Glargine (Insulin Glargine,Hum.Rec.Anlog 100 Unit/Ml 10 Ml Vial) 7 unit SUBCUT DAILY [facility] Last Admin: 10/21/23 09:47 Dose: 7 unit Insulin Human Lispro (Insulin Lispro 100 Unit/Ml 3 Ml Vial) 0 unit SUBCUT QIDACHS [facility]; Protocol Last Admin: 10/22/23 07:44 Dose: 1 unit Melatonin (Melatonin 3 Mg Tablet) 3 mg PO BEDTIME PRN PRN Reason: Insomnia Non-Formulary Medication (Estradiol [Estrace]) 0.5 appful VAGINAL MOWEFR [facility] Olanzapine (Olanzapine 10 Mg Vial) 2.5 mg IM Q6H PRN PRN Reason: anxiety/restlessness Last Admin: 10/21/23 18:55 Dose: 2.5 mg Ondansetron HCl (Ondansetron Hcl 4 Mg/2 Ml Vial) 4 mg IVPUSH Q8H PRN PRN Reason: Nausea and Vomiting Last Admin: 10/21/23 18:05 Dose: 4 mg Pantoprazole Sodium (Pantoprazole Sodium 40 Mg/10 Ml Vial) 40 mg IVPUSH BID@0630,1630 [facility] Last Admin: 10/22/23 05:59 Dose: 40 mg Sodium Biphosphate/Sodium Phosphate (Sodium Phosphate,Bay-Dibasic 133 Ml Enema) 133 ml UT DAILY PRN PRN Reason: Constipation Last Admin: 10/20/23 22:45 Dose: 133 ml Sodium Chloride (0.9 % Sodium Chloride Flush 3 Ml Syringe) 3 ml IVFLUSH QSHIFT [facility] Last Admin: 10/22/23 07:44 Dose: 3 ml Sodium Chloride (Sodium Chloride Tab 1 Gm Tablet) 2 gm PO BID@0900,1700 [facility] Last Admin: 10/22/23 07:40 Dose: Not Given Vitamin D (Cholecalciferol (Vitamin D3) 25 Mcg Tablet) 125 mcg PO DAILY@1700 [facility] Last Admin: 10/21/23 19:21 Dose: Not Given Allergies Allergy/AdvReac Type Severity Reaction Status Date / Time Sulfa (Sulfonamide Allergy Severe RASH/HIVES, Verified 10/20/23 10:01 Antibiotics) hives [SULFA (SULFONAMIDE ANTIBIOTICS)] insulin aspart Allergy Unknown HIVES Verified 10/20/23 10:01 [From NOVOLOG U-100 INSULIN ASPART] lactose Allergy Unknown Unknown Verified 10/20/23 10:01 levofloxacin [From LEVAQUIN] AdvReac Intermediate BLOOD Verified 10/20/23 10:01 SUGAR DROPS Physical Exam Vital signs: Vital Signs Temp 98.4 F 10/22/23 07:41 Pulse 108 H 10/22/23 07:41 Resp 20 10/22/23 07:41 BP 157/73 H 10/22/23 07:41 Pulse Ox 98 10/22/23 07:41 O2 Del Method Nasal Cannula 10/22/23 07:41 O2 Flow Rate 2 10/22/23 07:41 Intake & Output 10/21/23 10/22/23 10/22/23 18:59 06:59 18:59 Intake Total 1072.985 / 2373.765 1300.780 / 2373.765 Output Total 325 / 325 Balance 1072.985 / 2048.765 975.780 / 2048.765 Urine Output (Average ml/kg/hr) 0.42 Intake: Intake, IV Amount 1072.985 / 2373.765 1300.780 / 2373.765 Meropenem 1 gm In 0.9 % Sodium 200 / 200 Chloride 100 ml @ 200 mls/hr IV Q12H CHRISTOPH Rx#:[id number] levETIRAcetam 750 mg In 0.9 % 102.5 / 210.0 107.5 / 210.0 Sodium Chloride 100 ml @ 430 mls/hr IV BID CHRISTOPH Rx#: [id number] levETIRAcetam in NaCl (iso-os) 100 / 100 500 mg In 100 ml @ 400 mls/hr IV Q12H [facility]STOP[facility] Rx#:[id number] Dextrose 5 % and Lactated Ring 866.667 / 866.667 1,000 ml @ 80 mls/hr IVCONT . [id number] [facility]RISTOP[facility] Rx#:[id number] Heparin Sodium,Porcine/1/2NS 25 70.485 / 197.098 126.613 / 197.098 ,000 unit In 250 ml @ Per Protocol IVCONT .Q0M [facility]RISTOP[facility] Rx#: [id number] Lactated Ringers 1,000 ml @ 100 800 / 800 mls/hr IVCONT .Q10H CHRISTOPH Rx#: [id number] Output: Output, Urine Amount 325 / 325 Other: NPO Yes Breakfast % Eaten 0% Lunch % Eaten 0% Number of Incontinent Voids 1 3 Number of Bowel Movements 2 Urine purewick Urine Color Yellow Yellow Last Bowel Movement 10/22/23 10/21/23 Stool Incontinent Stool Amount Small Stool Color Brown Stool Consistency Watery Weight 64 kg Weight 64 kg - Constitutional Present: moderate distress - Routine HEENT Exam Head: Present: normocephalic ENT: Present: mucous membranes moist - Routine Neck Exam Present: supple - Routine Respiratory Exam Present: CTAB - Routine Cardiovascular Exam Cardiovascular: Present: RRR, S1, S2 - Routine Extremities Exam Present: nontender - Routine Neurological Exam Present: alert, oriented X3 Hem/Onc Consult Result - Labs CBC & Chem 7: 10/23/23 06:07 10/23/23 06:07 Labs: Short CBC 10/21/23 Range/Units 21:02 WBC 5.7 (4.8-10.8) X10*3/uL Hgb 9.5 L (12.0-16.0) g/dl Hct 28.5 L (37.0-47.0) % Plt Count 448 H (160-400) X10*3/uL BMP 10/21/23 21:02 Sodium 138 Potassium 4.2 Chloride 103 Carbon Dioxide 23 BUN 18 H Creatinine 0.79 Calcium 8.8 Cardiac Enzymes 10/21/23 Range/Units 21:02 Total Creatine Kinase 58 (26-140) U/L Liver Function 10/21/23 Range/Units 21:02 Total Bilirubin 0.5 (0.0-1.0) mg/dL AST 9 (5-31) U/L ALT < 5 (0-31) U/L Alkaline Phosphatase 58 (39-117) U/L Albumin 3.1 L (3.5-5.0) g/dL Assessment and Plan Patient Active problem list reviewed?: Yes (1) Pulmonary embolism Status: Inactive Assessment and plan: 78 year old lady, admitted with mental status changes, abdominal distension and constipation. She is a frequent visitor to the hospital. She was noted to have seizures. She was noted to have a new localized symptoms of weakness on left side, facial droop. Stroke work up initiated with CT and CTA of head and neck showing no acute CVA, however CTA did show bilateral pulmonary embolism partially visualized and she was started on IV heparin drip. She seems more alert she seems weak on left side. CTA of head and neck: Partially evaluated bilateral upper lobe segmental/subsegmental pulmonary emboli. Dedicated CT angiogram of the chest is recommended for further evaluation. Scattered pulmonary nodules may be infectious/inflammatory. Attention on follow-up is recommended to monitor stability. Additional findings as above. CTA of the chest from today revealed: No CT evidence of acute pulmonary thromboembolism. Prominent pulmonary arteries suggest underlying pulmonary hypertension. Bilateral pleural effusions, atelectasis/consolidations. Right lower lobe lung nodules not excluded. Short-term CT follow-up after appropriate therapy recommended in 3-6 months. Diffusely dilated esophagus with debris placing patient at risk for aspiration pneumonia. Question 1.6 cm submental lymph node. Correlate clinically. PLAN: This is great news. The Heparin Infusion can safely be discontinued. Discussed with and family. Meanwhile neurology work up is in progress. I wish her the best of luck. Thanks for the consultation. CC: Sachin. - Time Spent With Patient Time Spent with Patient (in minutes): 30
[2023-10-22] MEDS: Insulin Glargine,Hum.rec.anlog 100 UNIT/ML 10 ML VIAL 7 UNIT SUBCUT (08:52)
[2023-10-22] MEDS: levETIRAcetam 750 MG in 0.9 % Sodium Chloride 100 ML 430 MG IV (08:52)
--- NOTE | 2023-10-22 09:02 | PC.NURSE ---
Addendum entered by Sameera Hicks RN 10/22/23 19:23: Family called this RN to bedside for concern of worsening seizure activity. Patient having continued intermittent nonpurposeful bilateral movements, eyes open, able to deny pain. MD called to bedside. Valporic acid ordered for additional seizure medication. Family updated by night provider and this RN. VSS. Handoff given to Demetria ZAPATA. Addendum entered by Sameera Hicks RN 10/22/23 16:41: Continued intermittent nonpurposeful movements w/ positive interaction throughout shift - MD aware. Extra Keppra 250 administered this am per emar. EEG and CT completed - see report. Heparin gtt discontinued. This RN and provider at bedside for family update. Speech eval held at this time due to CT findings. MD aware. Addendum entered by Sameera Hicks RN 10/22/23 11:55: IV contrast consent completed by patient and new #20g IV w/ ultrasound obtained for CT w/ contrast. EEG at bedside - MD aware. Okay to go to CT after EEG completed per MD. EEG completed at 1145. Patient being accompanied to CT w/ transport and RN Cassidy - handoff given. Original Note: Urgent CTA ordered - Per Dr Ortiz wait until BMP results are back - BMP pending. Family at bedside and updated on plan and expressed confusion on reasoning for test and previous imaging results. Family requesting conversation with Dr Ortiz for clarification - MD notified and awaiting arrival to bedside.
[2023-10-22 09:07] LABS: Anion Gap 16 (12-20); Blood Urea Nitrogen 16 mg/dL (9-16); Calcium 8.6 mg/dL (8.4-10.2); Carbon Dioxide 24 mmol/L (22-29); Chloride 102 mmol/L (96-108); Creatinine Clr Calc Pharmacy 48.8; Estimated Glomerular Filt Rate > 60; Glucose Random 242 mg/dL (60-115); Potassium 3.7 mmol/L (3.3-5.1); Sodium 138 mmol/L (135-145)
--- NOTE | 2023-10-22 09:15 | P.CNNE_ITS ---
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 Yesterday her EEG revealed right hemispheric abnormalities and an MRI of brain was done. It revealed a possible small area of restricted diffusion and shaw radiata area. Family stated that her left arm was weak noted when she was more alert. Last night she was treated with olanzapine for behavioral symptoms. At this time she was unresponsive to verbal stimuli. Review of Systems 2 Review of Systems: Could not be done with [facility] Past Medical History Medical History Splenic infarct ESBL (extended spectrum beta-lactamase) producing bacteria infection Esophageal dilatation PPD positive Hyperkalemia Glaucoma Retinopathy QT prolongation POTS (postural orthostatic tachycardia syndrome) Orthostatic hypotension Neuropathy Hypothyroid Hypercholesterolemia HTN (hypertension) GERD (gastroesophageal reflux disease) DM type 1 (diabetes mellitus, type 1) Dementia Vitamin B12 deficiency CKD (chronic kidney disease), stage III CAD (coronary artery disease) COVID-19 Social History Social History Household Members: Spouse Housing: House Do you presently have visiting nurse or other home services: Yes (RN, [employer], PT, OT comes in once to thrice a week) Unable to assess alcohol history related to: Unable to respond Alcohol intake: never Comment: transfer to [facility] for endoscopy Patient Tobacco Use Status: Never used Tobacco Smoked in Last 30 Days: No e-Cigarette/Vaping Use: Never Used Second Hand Smoke Exposure: No Use of substances other than those prescribed or required for medical reasons: No Currently Displaying Signs/Symptoms of Drug Intoxication Withdrawal: No Have you been hit, kicked, punched, or otherwise hurt by someone within the past year? If so, by whom?: No Do you feel safe in your current relationship?: Yes Spiritual Healthcare Practices: adventism Advance Directives: Yes Advance Directives on File: Yes Advance Directives Date on File: 03/26/23 Do you have thoughts of harming others: None Do you have a plan to hurt others: No Plan Recently lost weight without trying: Unsure Nutrition Risks: No Nutritional Risk Patient : No service: No Current occupational status: retired Meds Allergies Allergy/AdvReac Type Severity Reaction Status Date / Time Sulfa (Sulfonamide Allergy Severe RASH/HIVES, Verified 10/20/23 10:01 Antibiotics) hives [SULFA (SULFONAMIDE ANTIBIOTICS)] insulin aspart Allergy Unknown HIVES Verified 10/20/23 10:01 [From NOVOLOG U-100 INSULIN ASPART] lactose Allergy Unknown Unknown Verified 10/20/23 10:01 levofloxacin [From LEVAQUIN] AdvReac Intermediate BLOOD Verified 10/20/23 10:01 SUGAR DROPS Active Medications: Current Medications Acetaminophen (Acetaminophen 325 Mg Tablet) 650 mg PO Q6H PRN PRN Reason: Pain, Mild (Pain Scale 1-3) Acetaminophen (Acetaminophen Supp 650 Mg Supp.Rect) [address] Q4H PRN PRN Reason: Fever Last Admin: 10/21/23 05:17 Dose: 650 mg Al Hydroxide/Mg Hydroxide (Magnesium Hydrox/Alum Hydrox 30 Ml Oral.Susp) 30 ml PO Q4H PRN PRN Reason: Heartburn/Nausea Albuterol Sulfate (Albuterol Sulfate 90 Mcg 8 Gm Inhaler) 2 puff INHALE RBID@1030,1830 [facility] Last Admin: 10/22/23 07:48 Dose: Not Given Ascorbic Acid (Ascorbic Acid 500 Mg Tablet) 500 mg PO BID@0900,1700 [facility] Last Admin: 10/22/23 07:39 Dose: Not Given Aspirin (Aspirin Enteric Coated 81 Mg Tablet.) 81 mg PO DAILY [facility] Last Admin: 10/22/23 07:39 Dose: Not Given Aspirin (Aspirin 300 Mg Supp.Rect) [address] DAILY [facility] Last Admin: 10/22/23 07:47 Dose: 300 mg Atorvastatin Calcium (Atorvastatin Calcium 80 Mg Tablet) 80 mg PO DAILY [facility] Last Admin: 10/22/23 07:39 Dose: Not Given Cyanocobalamin (Cyanocobalamin (Vitamin B-12) 500 Mcg Tablet) 500 mcg PO DAILY [facility] Last Admin: 10/22/23 07:40 Dose: Not Given Dextrose (Dextrose 50 % 25 Gm/50 Ml Syringe) 25 gm IVPUSH Q15M PRN; Protocol PRN Reason: per Hypoglycemia Standing Ord. Ferrous Sulfate (Ferrous Sulfate 324 Mg Tablet.) 324 mg PO DAILY [facility] Last Admin: 10/22/23 07:40 Dose: Not Given Glucose (Glucose Gel 15 Gm Gel..Gram.) 15 gm PO Q15M PRN; Protocol PRN Reason: per Hypoglycemia Standing Ord. Heparin Sodium (Porcine) (Heparin Sodium,Porcine 5,000 Unit/Ml Vial) 2,600 unit 40 unit/kg (2600 unit) IVPUSH PROTOCOL BOLUS PRN; Protocol PRN Reason: 40 unit/kg - Heparin Protocol Last Admin: 10/21/23 20:49 Dose: 2,600 unit Heparin Sodium (Porcine) (Heparin Sodium,Porcine 5,000 Unit/Ml Vial) 5,100 unit 80 unit/kg (5100 unit) IVPUSH PROTOCOL BOLUS PRN; Protocol PRN Reason: 80 unit/kg - Heparin Protocol Heparin Sodium/Sodium Chloride (Heparin Sodium,Porcine/1/2ns) 25,000 unit in 250 mls @ 0 mls/hr IVCONT .Q0M [facility]RISTOP[facility]; Protocol Last Titration: 10/22/23 04:17 Dose: 13 units/kg/hr, 8.32 mls/hr Dextrose/Lactated Ringer's (D5lr) 1,000 mls @ 80 mls/hr IVCONT .[id number] [facility] Last Admin: 10/22/23 00:37 Dose: 80 mls/hr Levetiracetam 750 mg/ Sodium (Chloride) 107.5 mls @ 430 mls/hr IV BID [facility] Last Infusion: 10/22/23 09:11 Dose: Infused Meropenem 1 gm/ Sodium (Chloride) 100 mls @ 200 mls/hr IV Q12H [facility] Last Infusion: 10/22/23 06:36 Dose: Infused Levetiracetam 250 mg/ Sodium (Chloride) 102.5 mls @ 410 mls/hr IV ONCE ONE Stop: 10/22/23 09:25 Insulin Glargine (Insulin Glargine,Hum.Rec.Anlog 100 Unit/Ml 10 Ml Vial) 7 unit SUBCUT DAILY [facility] Last Admin: 10/22/23 08:52 Dose: 7 unit Insulin Human Lispro (Insulin Lispro 100 Unit/Ml 3 Ml Vial) 0 unit SUBCUT QIDACHS [facility]; Protocol Last Admin: 10/22/23 07:44 Dose: 1 unit Melatonin (Melatonin 3 Mg Tablet) 3 mg PO BEDTIME PRN PRN Reason: Insomnia Non-Formulary Medication (Estradiol [Estrace]) 0.5 appful VAGINAL MOWEFR [facility] Ondansetron HCl (Ondansetron Hcl 4 Mg/2 Ml Vial) 4 mg IVPUSH Q8H PRN PRN Reason: Nausea and Vomiting Last Admin: 10/21/23 18:05 Dose: 4 mg Pantoprazole Sodium (Pantoprazole Sodium 40 Mg/10 Ml Vial) 40 mg IVPUSH BID@0630,1630 [facility] Last Admin: 10/22/23 05:59 Dose: 40 mg Sodium Biphosphate/Sodium Phosphate (Sodium Phosphate,[place]-Dibasic 133 Ml Enema) [address] DAILY PRN PRN Reason: Constipation Last Admin: 10/20/23 22:45 Dose: 133 ml Sodium Chloride (0.9 % Sodium Chloride Flush 3 Ml Syringe) 3 ml IVFLUSH QSHIFT [facility] Last Admin: 10/22/23 07:44 Dose: 3 ml Sodium Chloride (Sodium Chloride Tab 1 Gm Tablet) 2 gm PO BID@0900,1700 [facility] Last Admin: 10/22/23 07:40 Dose: Not Given Vitamin D (Cholecalciferol (Vitamin D3) 25 Mcg Tablet) 125 mcg PO DAILY@1700 [facility] Last Admin: 10/21/23 19:21 Dose: Not Given Home Medications Medication Instructions Recorded Confirmed Last Taken Type Lactobacillus rhamnosus GG 10 1 cap PO DAILY 10/14/21 10/20/23 10/12/23 History billion cell capsule (Culturelle) cholecalciferol (vitamin D3) 125 125 mcg PO DAILY@1700 10/14/21 10/20/23 10/12/23 History mcg (5,000 unit) tablet (Vitamin D3) cyanocobalamin (vitamin B-12) 500 500 mcg PO DAILY 10/14/21 10/20/23 10/12/23 History mcg tablet insulin lispro 100 unit/mL 0 - 2 unit subcut DAILY@1730 10/14/21 10/20/23 10/12/23 History subcutaneous cartridge (Humalog U-100 Insulin) insulin lispro 100 unit/mL 3 - 4 unit subcut DAILY@1130 10/14/21 10/20/23 10/12/23 History subcutaneous cartridge (Humalog U-100 Insulin) insulin lispro 100 unit/mL 4 unit subcut DAILY 10/14/21 10/20/23 10/12/23 History subcutaneous cartridge (Humalog U-100 Insulin) simvastatin 20 mg tablet 20 mg PO BEDTIME 10/14/21 10/20/23 10/11/23 History sodium chloride 1 gram tablet 2 tab PO BID@0900,1700 01/20/22 10/20/23 10/12/23 History insulin lispro 100 unit/mL 1 sliding scale dose subcut TIDAC 03/12/22 10/20/23 10/12/23 History subcutaneous solution (Humalog U-100 Insulin) ascorbic acid (vitamin C) 500 mg 500 mg PO BID@0900,1700 03/25/23 10/20/23 10/12/23 History tablet cranberry fruit 450 mg tablet 450 mg PO DAILY 03/25/23 10/20/23 10/12/23 History estradiol 0.01% (0.1 mg/gram) 0.5 appful vaginal MOWEFR 03/25/23 10/20/23 10/11/23 History vaginal cream (Estrace) ferrous fumarate 324 mg (106 mg 324 mg PO DAILY 08/28/23 10/20/23 10/12/23 History iron) tablet insulin glargine-yfgn 100 unit/mL 8 unit subcut BEDTIME 08/28/23 10/20/23 10/11/23 History subcutaneous solution levetiracetam 500 mg tablet 500 mg PO BID@0900,1700 08/28/23 10/20/23 10/12/23 History (Hedy) menthol 0.44 %-zinc oxide 20.6 % 1 appl topical BID PRN Skin 08/28/23 10/20/23 Unknown History topical ointment (Calmoseptine) Irritation albuterol sulfate 90 mcg/actuation 2 puff inhalation BID@1030,1830 10/13/23 10/20/23 Unknown History aerosol inhaler Shortness Of Breath Or Wheezing ceramides 1,3,6-II (CeraVe topical 1 appl topical BEDTIME 10/13/23 10/20/23 10/11/23 History cream) omeprazole 40 mg capsule,delayed 40 mg PO DAILY@0630 10/13/23 10/20/23 10/12/23 History release methenamine hippurate 1 gram tablet 1 g PO BID 10/20/23 10/20/23 Unknown History Physical Exam 2 Vital Signs: Vital Signs: Last Vital Signs Temp 98.4 F 10/22/23 07:41 Pulse 108 H 10/22/23 07:41 Resp 20 10/22/23 07:41 BP 157/73 H 10/22/23 07:41 Pulse Ox 98 10/22/23 07:41 O2 Del Method Nasal Cannula 10/22/23 07:41 O2 Flow Rate 2 10/22/23 07:41 Oxygen Flow Rate 4 10/21/23 13:45 BMI result Body Mass Index 23.5 Neuro: Other: Not responsive to verbal stimuli. Snoring. Right arm is continuously having myoclonic type of jerking. Left is flaccid. Results Labs 10/21/23 21:02 10/22/23 08:38 Labs: Short CBC 10/21/23 Range/Units 21:02 WBC 5.7 (4.8-10.8) X10*3/uL Hgb 9.5 L (12.0-16.0) g/dl Hct 28.5 L (37.0-47.0) % Plt Count 448 H (160-400) X10*3/uL BMP 10/21/23 10/22/23 21:02 08:38 Sodium 138 138 Potassium 4.2 3.7 Chloride 103 102 Carbon Dioxide 23 24 BUN 18 H 16 Creatinine 0.79 0.84 Calcium 8.8 8.6 Cardiac Enzymes 10/21/23 Range/Units 21:02 Total Creatine Kinase 58 (26-140) U/L Liver Function 10/21/23 Range/Units 21:02 Total Bilirubin 0.5 (0.0-1.0) mg/dL AST 9 (5-31) U/L ALT < 5 (0-31) U/L Alkaline Phosphatase 58 (39-117) U/L Albumin 3.1 L (3.5-5.0) g/dL MRI of brain revealed Possible punctate acute to subacute infarct involving the posterior right insula. No other acute intracranial abnormality within the limitations of motion. 2. Generalized cerebral volume loss and chronic microangiopathy. 3. Bilateral mastoid effusions. Microbiology Microbiology Results: Microbiology 10/20/23 12:12 Blood - Venous Blood Culture - Preliminary No growth after 24 hours. 10/20/23 12:07 Blood - Venous Blood Culture - Preliminary No growth after 24 hours. 10/20/23 Unknown Urine clean catch - Urine robertson top Urine Culture - Preliminary Gram negative tong Assessment and Plan (1) Encephalopathy: Status: Acute 78 years old woman with multifactorial encephalopathy. For seizures, she is treated with Keppra 750 mg twice a day. I would suggest giving her 250 mg more and then obtaining an EEG to rule out nonepileptic status. At the same time, she also has some radiological evidence of pulmonary emboli and dedicated CTA was already ordered. As far as small area of ischemia on on right side of brain is concerned, it might be the reason for left-sided weakness that family noted. There was no neurological contraindication for anti-platelet or anticoagulant agents. Dose of levetiracetam would be adjusted after EEG. Procedures Date of Service Date of Service: 10/22/23
[2023-10-22] MEDS: levETIRAcetam 250 MG in 0.9 % Sodium Chloride 100 ML 410 MG IV (09:58)
[2023-10-22 10:32] LABS: PTT Heparin Drip 38.2 SEC (53-77.9)
[2023-10-22] MEDS: Heparin Sodium,Porcine 5,000 UNIT/ML VIAL 2600 UNIT IVPUSH (10:47)
[2023-10-22 11:45] LABS: Glucose, Whole Blood 143 mg/dL (60-115)
[2023-10-22 11:53] VITALS: BP 160/72; PULSE 95; RESP 20; TEMP 36.8; O2SAT 94
[2023-10-22 12:02] LABS: Glucose, Whole Blood 139 mg/dL (60-115)
[2023-10-22] MEDS: iohexoL 350 MG/ML 100 ML INFUS..BTL IV (12:27)
--- NOTE | 2023-10-22 13:00 | P.PNIM_ITS ---
Subjective Subjective Date of Service: 10/22/23 Interval History: left arm was weak noted when she was more alert. Review of Systems received olazapine overnight for ?possible behvioural symptoms no fevers Physical Exam 2 Vital Signs: Vital Signs: Last Vital Signs Temp 98.3 F 10/22/23 11:53 Pulse 95 10/22/23 11:53 Resp 20 10/22/23 11:53 BP 160/72 H 10/22/23 11:53 Pulse Ox 94 10/22/23 11:53 O2 Del Method Nasal Cannula 10/22/23 11:53 O2 Flow Rate 2 10/22/23 11:53 Oxygen Flow Rate 4 10/21/23 13:45 BMI result Body Mass Index 23.5 General: intermittent says yes or no, not open eyes Resp: CTA bilateral CVS: S1,S2,RRR, some swelling of both legs GI: +BS, NT, no distention Skin: No rash Neuro:left side weakness ,right arm -somewhat myoclonic type of jerking Psych: appropriate affect Objective Data Active Medications Acetaminophen (Acetaminophen 325 Mg Tablet) 650 mg PO Q6H PRN PRN Reason: Pain, Mild (Pain Scale 1-3) Acetaminophen (Acetaminophen Supp 650 Mg Supp.Rect) 650 mg TN Q4H PRN PRN Reason: Fever Last Admin: 10/21/23 05:17 Dose: 650 mg Documented By: HUGO Al Hydroxide/Mg Hydroxide (Magnesium Hydrox/Alum Hydrox 30 Ml Oral.Susp) 30 ml PO Q4H PRN PRN Reason: Heartburn/Nausea Albuterol Sulfate (Albuterol Sulfate 90 Mcg 8 Gm Inhaler) 2 puff INHALE RBID@1030,1830 [facility] Last Admin: 10/22/23 07:48 Dose: Not Given Documented By: LAURI Non-Admin Reason: Patient Condition Contraindication Ascorbic Acid (Ascorbic Acid 500 Mg Tablet) 500 mg PO BID@0900,1700 [facility] Last Admin: 10/22/23 07:39 Dose: Not Given Documented By: JOSE E Non-Admin Reason: NPO Aspirin (Aspirin Enteric Coated 81 Mg Tablet.) 81 mg PO DAILY [facility] Last Admin: 10/22/23 07:39 Dose: Not Given Documented By: JOSE E Non-Admin Reason: NPO Aspirin (Aspirin 300 Mg Supp.Rect) 300 mg TN DAILY [facility] Last Admin: 10/22/23 07:47 Dose: 300 mg Documented By: JOSE E Atorvastatin Calcium (Atorvastatin Calcium 80 Mg Tablet) 80 mg PO DAILY [facility] Last Admin: 10/22/23 07:39 Dose: Not Given Documented By: JOSE E Non-Admin Reason: NPO Cyanocobalamin (Cyanocobalamin (Vitamin B-12) 500 Mcg Tablet) 500 mcg PO DAILY [facility] Last Admin: 10/22/23 07:40 Dose: Not Given Documented By: JOSE E Non-Admin Reason: NPO Dextrose (Dextrose 50 % 25 Gm/50 Ml Syringe) 25 gm IVPUSH Q15M PRN; Protocol PRN Reason: per Hypoglycemia Standing Ord. Ferrous Sulfate (Ferrous Sulfate 324 Mg Tablet.Dr) 324 mg PO DAILY [facility] Last Admin: 10/22/23 07:40 Dose: Not Given Documented By: JOSE E Non-Admin Reason: NPO Glucose (Glucose Gel 15 Gm Gel..Gram.) 15 gm PO Q15M PRN; Protocol PRN Reason: per Hypoglycemia Standing Ord. Heparin Sodium (Porcine) (Heparin Sodium,Porcine 5,000 Unit/Ml Vial) 2,600 unit 40 unit/kg (2600 unit) IVPUSH PROTOCOL BOLUS PRN; Protocol PRN Reason: 40 unit/kg - Heparin Protocol Last Admin: 10/22/23 10:47 Dose: 2,600 unit Documented By: JOSE E Heparin Sodium (Porcine) (Heparin Sodium,Porcine 5,000 Unit/Ml Vial) 5,100 unit 80 unit/kg (5100 unit) IVPUSH PROTOCOL BOLUS PRN; Protocol PRN Reason: 80 unit/kg - Heparin Protocol Heparin Sodium/Sodium Chloride (Heparin Sodium,Porcine/1/2ns) 25,000 unit in 250 mls @ 0 mls/hr IVCONT .Q0M [facility]; Protocol Last Titration: 10/22/23 10:43 Dose: 15 units/kg/hr, 9.6 mls/hr Documented By: JSOE E Co-signed By: LUCIE Dextrose/Lactated Ringer's (D5lr) 1,000 mls @ 80 mls/hr IVCONT .[id number] [facility] Last Admin: 10/22/23 11:44 Dose: 80 mls/hr Documented By: JOSE E Levetiracetam 750 mg/ Sodium (Chloride) 107.5 mls @ 430 mls/hr IV BID [facility] Last Infusion: 10/22/23 09:11 Dose: Infused Documented By: JOSE E Meropenem 1 gm/ Sodium (Chloride) 100 mls @ 200 mls/hr IV Q12H [facility] Last Infusion: 10/22/23 06:36 Dose: Infused Documented By: JOSE E Insulin Glargine (Insulin Glargine,Hum.Rec.Anlog 100 Unit/Ml 10 Ml Vial) 7 unit SUBCUT DAILY [facility] Last Admin: 10/22/23 08:52 Dose: 7 unit Documented By: JOSE E Insulin Human Lispro (Insulin Lispro 100 Unit/Ml 3 Ml Vial) 0 unit SUBCUT QIDACHS [facility]; Protocol Last Admin: 10/22/23 11:44 Dose: Not Given Documented By: JOSE E Non-Admin Reason: No Insulin Coverage Melatonin (Melatonin 3 Mg Tablet) 3 mg PO BEDTIME PRN PRN Reason: Insomnia Non-Formulary Medication (Estradiol [Estrace]) 0.5 appful VAGINAL MOWEFR [facility] Ondansetron HCl (Ondansetron Hcl 4 Mg/2 Ml Vial) 4 mg IVPUSH Q8H PRN PRN Reason: Nausea and Vomiting Last Admin: 10/21/23 18:05 Dose: 4 mg Documented By: SRIDEVI Pantoprazole Sodium (Pantoprazole Sodium 40 Mg/10 Ml Vial) 40 mg IVPUSH BID@0630,1630 [facility] Last Admin: 10/22/23 05:59 Dose: 40 mg Documented By: SAVAGE Sodium Biphosphate/Sodium Phosphate (Sodium Phosphate,[place]-Dibasic 133 Ml Enema) 133 ml TN DAILY PRN PRN Reason: Constipation Last Admin: 10/20/23 22:45 Dose: 133 ml Documented By: HUGO Sodium Chloride (0.9 % Sodium Chloride Flush 3 Ml Syringe) 3 ml IVFLUSH QSHIFT [facility] Last Admin: 10/22/23 07:44 Dose: 3 ml Documented By: JOSE E Sodium Chloride (Sodium Chloride Tab 1 Gm Tablet) 2 gm PO BID@0900,1700 [facility] Last Admin: 10/22/23 07:40 Dose: Not Given Documented By: JOSE E Non-Admin Reason: NPO Vitamin D (Cholecalciferol (Vitamin D3) 25 Mcg Tablet) 125 mcg PO DAILY@1700 [facility] Last Admin: 10/21/23 19:21 Dose: Not Given Documented By: SRIDEVI Non-Admin Reason: NPO Labs 10/21/23 21:02 10/22/23 08:38 Labs: Laboratory Results - last 24 hr 10/21/23 10/21/23 10/21/23 17:42 20:06 21:00 MCV MCH MCHC RDW Plt Count MPV Immature Gran % (Auto) Neut % (Auto) Lymph % (Auto) [place] % (Auto) Eos % (Auto) Baso % (Auto) Lymph # (Auto) [place] # (Auto) Eos # (Auto) Baso # (Auto) Abs Immat Gran (auto) Absolute Neuts (auto) Absolute Nucleated RBC Nucleated RBC % (auto) aPTT Heparin Protocol 52.3 L D VBG pH VBG pCO2 VBG pO2 VBG HCO3 VBG O2 Saturation VBG Base Excess Anion Gap Estim Creat Clear Calc Estimated GFR POC Glucose 163 H Random Glucose Lactic Acid Calcium Phosphorus Magnesium Total Bilirubin AST ALT Alkaline Phosphatase Total Creatine Kinase Total Protein Albumin Hold Yellow Top See Note 10/21/23 10/21/23 10/22/23 21:02 21:05 02:44 MCV 101.1 H MCH 33.7 H MCHC 33.3 RDW 14.5 Plt Count 448 H MPV 9.5 Immature Gran % (Auto) 0.4 Neut % (Auto) 75.7 H Lymph % (Auto) 11.3 L [place] % (Auto) 12.1 H Eos % (Auto) 0.0 Baso % (Auto) 0.5 Lymph # (Auto) 0.6 L [place] # (Auto) 0.7 Eos # (Auto) 0.0 Baso # (Auto) 0.0 Abs Immat Gran (auto) 0.02 Absolute Neuts (auto) 4.3 Absolute Nucleated RBC 0.000 Nucleated RBC % (auto) 0.0 aPTT Heparin Protocol 98.0 H D VBG pH 7.52 H VBG pCO2 32 VBG pO2 137 VBG HCO3 26 VBG O2 Saturation 100.0 VBG Base Excess 4.3 Anion Gap 16 Estim Creat Clear Calc 51.9 Estimated GFR > 60 POC Glucose Random Glucose 182 H Lactic Acid 1.6 Calcium 8.8 Phosphorus 2.7 Magnesium 1.6 Total Bilirubin 0.5 AST 9 ALT < 5 Alkaline Phosphatase 58 Total Creatine Kinase 58 Total Protein 5.8 L Albumin 3.1 L Hold Yellow Top 10/22/23 10/22/23 10/22/23 07:37 08:38 10:14 MCV MCH MCHC RDW Plt Count MPV Immature Gran % (Auto) Neut % (Auto) Lymph % (Auto) [place] % (Auto) Eos % (Auto) Baso % (Auto) Lymph # (Auto) [place] # (Auto) Eos # (Auto) Baso # (Auto) Abs Immat Gran (auto) Absolute Neuts (auto) Absolute Nucleated RBC Nucleated RBC % (auto) aPTT Heparin Protocol 38.2 L D VBG pH VBG pCO2 VBG pO2 VBG HCO3 VBG O2 Saturation VBG Base Excess Anion Gap 16 Estim Creat Clear Calc 48.8 Estimated GFR > 60 POC Glucose 259 H Random Glucose 242 H Lactic Acid Calcium 8.6 Phosphorus Magnesium Total Bilirubin AST ALT Alkaline Phosphatase Total Creatine Kinase Total Protein Albumin Hold Yellow Top 10/22/23 10/22/23 11:42 11:51 MCV MCH MCHC RDW Plt Count MPV Immature Gran % (Auto) Neut % (Auto) Lymph % (Auto) [place] % (Auto) Eos % (Auto) Baso % (Auto) Lymph # (Auto) [place] # (Auto) Eos # (Auto) Baso # (Auto) Abs Immat Gran (auto) Absolute Neuts (auto) Absolute Nucleated RBC Nucleated RBC % (auto) aPTT Heparin Protocol VBG pH VBG pCO2 VBG pO2 VBG HCO3 VBG O2 Saturation VBG Base Excess Anion Gap Estim Creat Clear Calc Estimated GFR POC Glucose 143 H 139 H Random Glucose Lactic Acid Calcium Phosphorus Magnesium Total Bilirubin AST ALT Alkaline Phosphatase Total Creatine Kinase Total Protein Albumin Hold Yellow Top Microbiology Microbiology Results: Microbiology 10/20/23 Unknown Urine Culture - Preliminary Urine clean catch - Urine robertson top Gram negative tong 10/20/23 12:12 Blood Culture - Preliminary Blood - Venous No growth after 24 hours. 10/20/23 12:07 Blood Culture - Preliminary Blood - Venous No growth after 24 hours. Assessment and Plan (1) Encephalopathy: Status: Acute (2) Pulmonary embolism: Status: Acute (3) Seizure: Status: Acute Assessment and Plan: 78-year-old female with a PMH significant for?CAD, CKD stage 3, vascular dementia, type 1 diabetes, GERD, HTN, HLD, hypothyroidism, POTS, recurrent UTIs, seizure disorder, dysphagia, and chronically wheelchair-bound who presents to the ED with nausea and vomiting, abdominal distention and witnessed seizure in the ED, she's found to have UTI Change in MS/left sided weaknesss, concern for stroke.. CT head and CTA are negative for stroke. Exam is not consistent and difficulty due to dementia and confusion. mri- small area of ischemia on on right side of brain is concerned, it might be the reason for left-sided weakness Has been assess by neuro, no candidate for intervention. Continue ASA TN , Lipitor when able to tolerate po Hx of seizure, missed dose of keppra on day of admission and had seizure Continue Keppra IV 750 mg iv bid ,added extra 250 mg iv -? seizure on exam(myoclonic type of jerking) added repeat EEG seen by neuro-continue keppra /eeg Pulmonary embolism--seen on CTA head. US of the legs to rule DVT- negative. cta chest added heparin drip,pt/ptt monitering , follow CBC UTI--has h/o ESBL, culture gram negative, sensitivity pending -continue Meropenem Constipation--has had BM in the ED and no distention noted. should be on regular bowel regimen seen By GI- added ppi. Diet-- states patient eats puree and thin liquid, Speech eval before diet. Type 1 diabetes-fs in 140-200 range continue to moniter SSI, Lantus Diabetic diet Sugar check Qidac GERD PPI HLD Continue statin HTN Continue lisinopril if able to take po Full Code DVT Prophylaxis: Heparin Pt is in general not doing well at home resulting in frequent ED visits and hospitalizations, unfortunately, will not be interested in rehab need for inpatient: acite stroke work up, seizure with AMS, UTI with metabolic encephalopathy and on IV Abx Discussed with and family in detail. Quality Stroke Does the patient have a stroke diagnosis?: No VTE Prior VTE?: No VTE Risk Level:: Medical - moderate - high VTE Device Contraindication: Treatment Not Tolerated VTE Drug Contraindication: N/A - Med Ordered
[2023-10-22 15:44] VITALS: BP 159/72; PULSE 96; RESP 20; TEMP 37.2; O2SAT 100
--- NOTE | 2023-10-22 15:48 | MHC.SPEECHCO ---
On arrival, Family concerned about risk of aspiration if food trials attempted due to mention of residual food in Pt's esophagus noted in CT report. Pt responded briefly to name, opened her eyes and vocalized, but quickly closed her eyes. DIRECTOR SECURITY MANAGEMENT was to attempt oral stimulation, however per Family wishes will hold off until mental status improves.
[2023-10-22 16:19] LABS: Glucose, Whole Blood 149 mg/dL (60-115)
[2023-10-22] MEDS: Heparin Sodium,Porcine 5,000 UNIT/ML VIAL 5000 UNIT SUBCUT (18:44)
[2023-10-22 19:12] VITALS: BP 151/70; PULSE 95; RESP 16; TEMP 37.2; O2SAT 96
--- NOTE | 2023-10-22 19:50 | PM.EVENT ---
Event Note Date of Service: 10/22/23 Event Note: 7:00 pm - Contacted by nursing to evaluate patient as the patient had an event of possible seizure activity and brief episode of rapid breathing. On evaluation, patient was calm however, looking hypoactive. No acute distress or seizure activity noted. She was able to answer simple questions. No acute neuro deficit grossly noted. Spoke with neurologist, Dr. Freeman. He recommended to increase Keppra to 1500 mg IV bid for now and to consider a 2nd anticonvulsant if seizure activity recurs. D/w family members who were at bedside. Time Spent With Patient Time: Total time managing care of this patient today ____ minutes.
[2023-10-22 20:01] LABS: Glucose, Whole Blood 154 mg/dL (60-115)
[2023-10-22] MEDS: levETIRAcetam in NaCl (iso-os) 1,500 MG/100 ML PIGGYBACK 400 MG IV (20:09)
[2023-10-22 23:53] VITALS: BP 120/59; PULSE 75; RESP 20; TEMP 36.4; O2SAT 97
[2023-10-23] MEDS: Dextrose 5 % and Lactated Ring 1,000 ML 80 ML IVCONT (00:24)
[2023-10-23] MEDS: 0.9 % Sodium Chloride Flush 3 ML SYRINGE IVFLUSH ×2 (00:26→07:46)
[2023-10-23 00:29] LABS: Glucose, Whole Blood 93 mg/dL (60-115)
[2023-10-23 03:41] VITALS: BP 164/76; PULSE 89; RESP 16; TEMP 36.4; O2SAT 96
[2023-10-23 06:06] LABS: Glucose, Whole Blood 142 mg/dL (60-115)
[2023-10-23] MEDS: Pantoprazole Sodium 40 MG/10 ML VIAL IVPUSH (06:06)
[2023-10-23] MEDS: Heparin Sodium,Porcine 5,000 UNIT/ML VIAL 5000 UNIT SUBCUT (06:06)
[2023-10-23 06:38] LABS: Hematocrit 31.5 % (37.0-47.0); Hemoglobin 10.3 g/dl (12.0-16.0)
[2023-10-23 06:56] LABS: Anion Gap 13 (12-20); Blood Urea Nitrogen 12 mg/dL (9-16); Calcium 8.5 mg/dL (8.4-10.2); Carbon Dioxide 27 mmol/L (22-29); Chloride 103 mmol/L (96-108); Creatinine Clr Calc Pharmacy 58.6; Estimated Glomerular Filt Rate > 60; Glucose Random 166 mg/dL (60-115); Potassium 3.8 mmol/L (3.3-5.1); Sodium 139 mmol/L (135-145)
[2023-10-23 07:20] VITALS: BP 166/78; PULSE 95; RESP 20; TEMP 36.8; O2SAT 95
[2023-10-23] MEDS: Insulin Glargine,Hum.rec.anlog 100 UNIT/ML 10 ML VIAL 7 UNIT SUBCUT (07:47)
[2023-10-23] MEDS: levETIRAcetam in NaCl (iso-os) 1,500 MG/100 ML PIGGYBACK 100 MG IV (07:47)
[2023-10-23] MEDS: Aspirin 300 MG SUPP.RECT PR (07:57)
[2023-10-23 10:56] VITALS: BP 162/86; PULSE 92; RESP 16; TEMP 36.8; O2SAT 97
[2023-10-23 11:51] LABS: Glucose, Whole Blood 202 mg/dL (60-115)
--- NOTE | 2023-10-23 13:04 | MHC.SLORD ---
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 Attempted to provide oral care, declined. However FINISHING TUNNEL OPERATOR discussed oral care for comfort w/ pt's and answered questions. Pt to be removed from FINISHING TUNNEL OPERATOR list at this time. If any changes, please re-refer.
--- NOTE | 2023-10-23 13:09 | MHC.CLN ---
F/U PT WITH INCREASED NUTRITION RISK R/T PRESSURE INJURY CURRENTLY NPO-PT IS DAY 3 NPO WATER GAS OPERATOR WORKING WITH PT ON APPROPRIATE DIET CONSISTENCY-FAMILY REQUESTING HOLD FOR NOW WHEN DIET TO ADVANCE, RECOMMEND ADDING SUPPLEMENTS TO PROMOTE WOUND HEALING ENSURE MAX BID TO PROVIDE 300KCALS, 60G PROTEIN MONITOR FOR DIET ADVANCEMENT CONSULT RD IF ALTERNATIVE NUTRITION IS NEEDED NGT VS. PPN
--- NOTE | 2023-10-23 13:19 | MHC.CM.PN ---
Addendum entered by Nidhi Cleary 10/23/23 14:14: [facility] able to accept pt and will be in contact with Evy from [facility]. This CM spoke to pts Dougie, he is in agreement for his to go home on hospice care. This CM provided an updated to him that [facility] will contact him and do a hospice evaluation. Emotional support provided to Dougie. Addendum entered by Nidhi Cleary 10/23/23 13:46: This CM received a call from Evy Ching from [facility], she received the clinicals we sent and states we can refer to hospice, but to let them know it will be a single case agreement. Original Note: EMR reviewed and per MD rounds, pt is not medically cleared for D/C, had a goals of care discussion with pts today. Per , CM to refer for hospice care and see what other supports the [facility] [employer] program can establish for her. This CM called Evy Ching from [facility] and provided an update to her. Evy requested updated clinicals to be sent to her and she will then need to get approval for a hospice referral. CM will await update from Evy on approval for hospice care.
--- NOTE | 2023-10-23 14:50 | MHC.CM.PN ---
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
--- NOTE | 2023-10-23 15:23 | PC.NURSE ---
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 Churn Drill Operator spoke with Tenisha, who asks for an update when the patient passes. Referral number is [id number].
[2023-10-23 16:00] VITALS: RESP 20
--- NOTE | 2023-10-23 16:04 | P.PNIM_ITS ---
Subjective Subjective Date of Service: 10/23/23 Interval History: Continues to decline despite therapies Review of Systems Unable to obtain Physical Exam 2 Vital Signs: Vital Signs: Last Vital Signs Temp 98.3 F 10/23/23 10:56 Pulse 92 10/23/23 10:56 Resp 16 10/23/23 10:56 BP 162/86 H 10/23/23 10:56 Pulse Ox 97 10/23/23 10:56 O2 Del Method Nasal Cannula 10/23/23 10:56 O2 Flow Rate 2 10/23/23 10:56 Oxygen Flow Rate 4 10/21/23 13:45 BMI result Body Mass Index 23.5 Const: Other: Obtunded Resp: Other: Clear to auscultation bilaterally no rales rhonchi wheezes Cardio: Other: No S4; positive S1-S2; no S3 murmurs rubs or gallops Extrem: Other: No edema bilaterally Objective Data Active Medications Acetaminophen (Acetaminophen Supp 650 Mg Supp.Rect) 650 mg ME Q4H PRN PRN Reason: Fever Last Admin: 10/21/23 05:17 Dose: 650 mg Documented By: HUGO Acetaminophen (Acetaminophen 325 Mg Tablet) 650 mg PO Q4H PRN PRN Reason: Fever >/= 100, Pain, mild 1-3 Aspirin (Aspirin 300 Mg Supp.Rect) 300 mg ME DAILY [facility] Last Admin: 10/23/23 07:57 Dose: 300 mg Documented By: MIRIAN Morphine Sulfate (Morphine Sulfate 2 Mg/Ml Cartridge) 2 mg IVPUSH Q2H PRN; Protocol PRN Reason: Pain, Moderate(Pain Scale 4-6) Ondansetron HCl (Ondansetron Odt 4 Mg Tab.Rapdis) 4 mg TRANSLINGU Q8H PRN PRN Reason: Nausea and Vomiting Sodium Chloride (0.9 % Sodium Chloride Flush 3 Ml Syringe) 3 ml IVFLUSH QSHIFT [facility] Last Admin: 10/23/23 07:46 Dose: 3 ml Documented By: MIRIAN Labs 10/23/23 06:07 10/23/23 06:07 Labs: Laboratory Results - last 24 hr 10/22/23 10/22/23 10/23/23 16:15 19:58 00:24 Anion Gap Estim Creat Clear Calc Estimated GFR POC Glucose 149 H 154 H 93 Random Glucose Calcium 10/23/23 10/23/23 10/23/23 06:03 06:07 11:47 Anion Gap 13 Estim Creat Clear Calc 58.6 Estimated GFR > 60 POC Glucose 142 H 202 H Random Glucose 166 H Calcium 8.5 Microbiology Microbiology Results: Microbiology 10/20/23 Unknown Urine Culture - Final Urine clean catch - Urine robertson top Escherichia coli 10/20/23 12:12 Blood Culture - Preliminary Blood - Venous No growth after 48 hours. 10/20/23 12:07 Blood Culture - Preliminary Blood - Venous No growth after 48 hours. 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 She is seen in the ED rather frequently and this 4th visit in about 4 weeks for similar symptoms. Patient is not able to provider history and according to the , she has not have a bowel movement in 4 days and was having nausea and vomitting and abomen seemed distended. She has chronic UTIs. Pt was last treated for ESBL UTI in August 2023?with a 10-day course of meropenem Subesequently, she developed C Diff infection and completed 14-day treatment. While in the ED today, she had a witnessed 2 seizure lasting 90s seconds and 30 seconds and was given Keppra IV; according to the , she did not take morning dose of keppra. After the seizure, she became less responsive, confused and seems to be in post- ictal state. As for abdoiminal distention, she has had BM in the hospital and abdomen is no longer distended. UA is positive again and given meropenem. The further states her oral intake has decreased along with urine output. Patient has continued to decline during hospitalization. Long discussion with who now agrees the patient should be kept comfortable. Comfort measures in place. Hospice consult via case management ordered Quality Stroke Does the patient have a stroke diagnosis?: No VTE Prior VTE?: No VTE Risk Level:: Medical - moderate - high VTE Device Contraindication: Treatment Not Tolerated VTE Drug Contraindication: N/A - Med Ordered
[2023-10-23] MEDS: Morphine Sulfate 2 MG/ML CARTRIDGE IVPUSH (19:14)
[2023-10-23 20:00] VITALS: RESP 18
[2023-10-24] VITALS: RESP 22
[2023-10-24] MEDS: Morphine Sulfate 2 MG/ML CARTRIDGE IVPUSH ×3 (01:04→11:58)
[2023-10-24] MEDS: 0.9 % Sodium Chloride Flush 3 ML SYRINGE IVFLUSH (01:10)
[2023-10-24] MEDS: diazePAM 10 MG/2 ML CARTRIDGE 5 MG IVPUSH ×3 (01:17→12:36)
[2023-10-24 03:44] VITALS: RESP 12
[2023-10-24 07:51] VITALS: RESP 16
--- NOTE | 2023-10-24 10:59 | MHC.CM.PN ---
Addendum entered by Nidhi Cleary 10/24/23 12:33: Pedro VELASCO completed by , now on file. Original Note: Second IMM given 10/24. MIGUEL A has approved hospice care with [facility]. Pt already has an adjustable bed set up in the home. Plan is for pt to D/C home today. Evy GRADY set up ambulance which will arrive at 11:45am. to order medications from [facility] out patient pharmacy for family to sweet pickle maker prior to leaving. JORDAN to admit pt to hospice this afternoon. Per Evy GRADY will be getting additional supports and services in the home for Lima.
--- NOTE | 2023-10-24 12:08 | P.DS_ITS ---
DS: Providers Provider Date of Service: 10/24/23 Date of admission: 10/20/23 14:59 Primary care physician: Bob Stephenson MD Consults: 10/20/23 13:20 Consult to Infectious Diseases Routine Consulting Provider: CHALINO RODRIGUEZ Reason for consultation: ESBL UTI 10/20/23 17:00 Consult to Wound Care Routine Reason for consultation: heel ulcer 10/20/23 18:13 Consult to Neurology Routine Consulting Provider: [facility] Reason for consultation: seizures, ?cva 10/21/23 01:51 Consult to Wound Care Routine Reason for consultation: DTI left heel, MASD 10/21/23 14:40 Consult to Gastroenterology Routine Consulting Provider: Som Robert Reason for consultation: recurrent constipation, ? motility problem Has provider been notified: No 10/21/23 19:26 Consult to Hematology / Oncology Routine Consulting Provider: Margie Lyman Reason for consultation: bilaterl PE Has provider been notified: No DS: Diagnosis Discharge Diagnosis (1) Encephalopathy: Status: Acute DS: Summary Hospital Course Hospital Course: 8-year-old female with a PMH significant for?CAD, CKD stage 3, vascular dementia, type 1 diabetes, GERD, HTN, HLD, hypothyroidism, POTS, recurrent UTIs, seizure disorder, dysphagia, and chronically wheelchair-bound recently admitted from 10/12/29 to 10/15 with nausea and vomiting and was 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 She is seen in the ED rather frequently and this 4th visit in about 4 weeks for similar symptoms. Patient is not able to provider history and according to the , she has not have a bowel movement in 4 days and was having nausea and vomitting and abomen seemed distended. She has chronic UTIs. Pt was last treated for ESBL UTI in August 2023?with a 10-day course of meropenem Subesequently, she developed C Diff infection and completed 14-day treatment. While in the ED today, she had a witnessed 2 seizure lasting 90s seconds and 30 seconds and was given Keppra IV; according to the , she did not take morning dose of keppra. After the seizure, she became less responsive, confused and seems to be in post- ictal state. As for abdoiminal distention, she has had BM in the hospital and abdomen is no longer distended. UA is positive again and given meropenem. The further states her oral intake has decreased along with urine output. Hospital course Hospital course Patient admitted to the hospital and loaded with IV Keppra. Over the course of the next 24-48 hours patient became essentially obtunded. Long discussion with and family. 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 states he has piece with this and patient will be discharged home with hospice support Time Attestation Discharge coordination time: Greater than 30 minutes Quality: Safe Use of Opioids Does Pt have an Active Cancer Diagnosis on the Problem List?: No Quality: Stroke Does the patient have a stroke diagnosis?: No Physical Exam Vital Signs: Vital Signs: Last Vital Signs Temp 98.3 F 10/23/23 10:56 Pulse 92 10/23/23 10:56 Resp 16 10/24/23 07:51 BP 162/86 H 10/23/23 10:56 Pulse Ox 97 10/23/23 10:56 O2 Del Method Nasal Cannula 10/23/23 10:56 O2 Flow Rate 2 10/23/23 10:56 Oxygen Flow Rate 4 10/21/23 13:45 BMI result Body Mass Index 23.5 Const: Other: Obtunded Resp: Other: Clear to auscultation bilaterally no rales rhonchi wheezes Cardio: Other: No S4; positive S1-S2; no S3 murmurs rubs or gallops Extrem: Other: No edema bilaterally DS: Data Data Completed and Pending Completed studies during hospitalization [Text1]: Procedures Insertion of Endotracheal Airway into Trachea, Via Natural or Artificial Opening Endoscopic (10/14/21) Insertion of Infusion Device into Right Basilic Vein, Percutaneous Approach (08/28/23) Introduction of Vasopressor into Peripheral Vein, Percutaneous Approach (10/14/21) Respiratory Ventilation, Less than 24 Consecutive Hours (10/14/21) Labs on day of discharge: Preliminary micro results at discharge 10/20/23 12:12 Blood Culture - Preliminary Blood - Venous No growth after 48 hours. 10/20/23 12:07 Blood Culture - Preliminary Blood - Venous No growth after 48 hours. Discharge Plan Discharge Anticipated Discharge Date/Time: 10/24/23 11:03 Patient Disposition: Hospice - Home Discharge Diagnosis: Metabolic encephalopathy Referrals: Bob Stephenson MD [Primary Care Provider] - 1 Week Discharge Medications: New lorazepam 2 mg/mL concentrate 0.5 mg PO Q6H PRN (Reason: anxiety) Qty: 30 0RF morphine 10 mg/5 mL solution 5 mg PO Q4H PRN (Reason: pain) Qty: 30 0RF Rx Instructions: Morphine Sulfate 20mg/ml 5mg(0.25ml) PO q3h prn pain/SOB Discontinued sodium chloride 1 gram tablet 2 tab PO BID@0900,1700 insulin lispro [Humalog U-100 Insulin] 100 unit/mL Solution 1 sliding scale dose SUBCUT TIDAC Protocol: Insulin Correction Scale Less than or equal to 110 ---- Give (units): 0 111 to 150 Give (units): 0 151 to 200 Give (units): 0 201 to 250 Give (units): 1 251 to 300 Give (units): 2 301 to 350 Give (units): 3 Greater than 350 Give (units): 4 Call MD if Blood Glucose > : 350 Rx Instructions: TO BE GIVEN IN ADDITION TO SET DOSE simvastatin 20 mg Tablet 20 mg PO BEDTIME Humalog U-100 Insulin 100 unit/mL Cartridge 4 unit SUBCUT DAILY Humalog U-100 Insulin 100 unit/mL Cartridge 3 - 4 unit subcut DAILY@1130 Rx Instructions: if BS < 150 give 3 unit if BS >/= 150 give 4 units plus the sliding scale Humalog U-100 Insulin 100 unit/mL Cartridge 0 - 2 unit subcut DAILY@1730 Rx Instructions: if BS < 150 give 0 unit if BS >/= 150 give 2 units plus the sliding scale cyanocobalamin (vitamin B-12) 500 mcg Tablet 500 mcg PO DAILY cholecalciferol (vitamin D3) [Vitamin D3] 125 mcg (5,000 unit) Tablet 125 mcg PO DAILY@1700 Culturelle 10 billion cell Capsule 1 cap PO DAILY ascorbic acid (vitamin C) 500 mg Tablet 500 mg PO BID@0900,1700 estradiol [Estrace] 0.01 % (0.1 mg/gram) Cream 0.5 appful VAGINAL MOWEFR Rx Instructions: for 14 days cranberry fruit 450 mg Tablet 450 mg PO DAILY Rx Instructions: administer with a meal albuterol sulfate 90 mcg/actuation HFA aerosol inhaler 2 puff INHALATION BID@1030,1830 omeprazole 40 mg Capsule,Delayed Release(Dr/Ec) 40 mg PO DAILY@0630 ceramides 1,3,6-II [CeraVe] Cream 1 appl TOPICAL BEDTIME ferrous fumarate 324 mg (106 mg iron) Tablet 324 mg PO DAILY menthol-zinc oxide [Calmoseptine] 0.44-20.6 % Ointment 1 appl TOPICAL BID PRN (Reason: Skin Irritation) levetiracetam [Keppra] 500 mg tablet 500 mg PO BID@0900,1700 insulin glargine-yfgn 100 unit/mL Solution 8 unit SUBCUT BEDTIME methenamine hippurate 1 gram Tablet 1 g PO BID Discharge Orders: Discharge Order (Routine); Ordered 10/24/23 Ordered By: Dhaval Valverde Diet: npo Activity on Discharge: npo Stand Alone Forms: Patient Portal Discharge page Care Plan Goals: Home with hospice Health Concerns: Home with hospice Plan of Treatment: Home with hospice Assessment: Home with hospice
--- NOTE | 2023-10-25 18:37 | P.CDIM_ITS ---
PROVIDER RESPONSE TEXT: To clarify, the appropriate diagnosis supported by the clinical indicators: Transient level of awareness QUERY TEXT: PHYSICIAN'S DOCUMENTATION REQUEST Date of Query: 10/24/2023 11:19 AM EST Patient Name: Lima Rene Admit Date: 10/20/2023 Dear Dhaval Valverde, A review of the medical record indicates additional documentation may be needed. Please review below and update the documentation accordingly. Clinical Indicators: Per Hospitalist Progress Note 10/23/23: Obtunded, Continues to decline despite therapies Per Neurology Consultation 10/22/23: MRI of brain revealed Possible punctate acute to subacute infarct involving the posterior right insul a multifactorial encephalopathy Not responsive to verbal stimuli. Snoring. Right arm is continuously having myoclonic type of jerking . Left is flaccid Based on the above, could you clarify if any of the following, best reflects the patient's level of c onsciousness? Unconscious Comatose Persistent vegetative state Transient level of awareness Other (explain) Clinically unable to determine (explain) Thank you, Gita Anton RN Use of terms such as suspected, likely, concern for, or probable (associated with a specific diagnosi s that is being evaluated, monitored, or treated as if it exists) are acceptable and can be coded in the inpatient se tting, when documented at the time of discharge. Please use your independent medical judgment in providing your response. THIS QUERY IS PART OF THE PERMANENT MEDICAL RECORD
--- NOTE | 2023-10-25 18:37 | P.CDIM_ITS ---
PROVIDER RESPONSE TEXT: To clarify, the appropriate diagnosis supported by the clinical indicators: Pressure (decubitus) ulcer, left heel deep tissue injury QUERY TEXT: PHYSICIAN'S DOCUMENTATION REQUEST Date of Query: 10/24/2023 11:13 AM EST Patient Name: Lima Rene Admit Date: 10/20/2023 Dear Dhaval Valverde, A review of the medical record indicates additional documentation may be needed. Please review below and update the documentation accordingly. Clinical Indicators: Per Wound Consult 10/22/23: Left heel deep tissue injury, present on admission foam to protect from friction and aid in off loading along with boots Based on the above, could you please provide further information regarding the ulcer/wound: Pressure (decubitus) ulcer, left heel deep tissue injury Traumatic wound Please specify the location and laterality of the ulcer/wound Other (explain) Clinically unable to determine (explain) Thank you, Gita Anton RN Use of terms such as suspected, likely, concern for, or probable (associated with a specific diagnosi s that is being evaluated, monitored, or treated as if it exists) are acceptable and can be coded in the inpatient se tting, when documented at the time of discharge. Please use your independent medical judgment in providing your response. THIS QUERY IS PART OF THE PERMANENT MEDICAL RECORD
--- NOTE | 2023-10-25 18:37 | P.CDIM_ITS ---
PROVIDER RESPONSE TEXT: To clarify, the appropriate diagnosis supported by the clinical indicators: Pressure (decubitus) ulcer, stage 1 right heel: right heel QUERY TEXT: PHYSICIAN'S DOCUMENTATION REQUEST Date of Query: 10/24/2023 11:10 AM EST Patient Name: Lima Rene Admit Date: 10/20/2023 Dear Dhaval Valverde, A review of the medical record indicates additional documentation may be needed. Please review below and update the documentation accordingly. Clinical Indicators: Per Wound Consult 10/22/23: Right lateral heel stage 1 pressure injury, present on admission foam to protect from friction and aid in off loading along with boots Based on the above, could you please provide further information regarding the ulcer/wound: Pressure (decubitus) ulcer, stage 1 right heel Please include the stage of the ulcer and specify the location and laterality of the ulcer/wound Traumatic wound Please specify the location and laterality of the ulcer/wound Other (explain) Clinically unable to determine (explain) Thank you, Gita Anton RN Use of terms such as suspected, likely, concern for, or probable (associated with a specific diagnosi s that is being evaluated, monitored, or treated as if it exists) are acceptable and can be coded in the inpatient se tting, when documented at the time of discharge. Please use your independent medical judgment in providing your response. THIS QUERY IS PART OF THE PERMANENT MEDICAL RECORD
[2023-10-26 20:33] LABS: Levetiracetam Keppra 50.5 mcg/mL (6.0-46.0)
== END 2023-10-24 12:45 | disposition hospice, home (50) | DRG 100 ==
LOC: HO.ED 11:44 → HO.EDOVER 15:13 → HO.S3 15:49 → HO.IMC 20:46
PROVIDERS: Internal Medicine; Nurse Practitioner Family; Physician Assistant; Student in an Organized Health Care Education/Training Program; Admitting Provider Internal Medicine; Emergency Provider Student in an Organized Health Care Education/Training Program; PCP Internal Medicine Rheumatology; Visit Provider Hospitalist
DX: G40.209 Localization-related (focal) (partial) symptomatic epilepsy and epileptic syndromes with complex partial seizures, not intractable, without status epilepticus (principal); I26.94 Multiple subsegmental thrombotic pulmonary emboli without acute cor pulmonale; N39.0 Urinary tract infection, site not specified; Z20.822 Contact with and (suspected) exposure to COVID-19; I12.9 Hypertensive chronic kidney disease with stage 1 through stage 4 chronic kidney disease, or unspecified chronic kidney disease; R40.4 Transient alteration of awareness; Z51.5 Encounter for palliative care; D75.839 Thrombocytosis, unspecified; K22.4 Dyskinesia of esophagus; K21.9 Gastro-esophageal reflux disease without esophagitis; L89.611 Pressure ulcer of right heel, stage 1; L89.626 Pressure-induced deep tissue damage of left heel; E78.5 Hyperlipidemia, unspecified; F01.C0 Vascular dementia, severe, without behavioral disturbance, psychotic disturbance, mood disturbance, and anxiety; K59.00 Constipation, unspecified; I25.10 Atherosclerotic heart disease of native coronary artery without angina pectoris; Z99.3 Dependence on wheelchair; N18.30 Chronic kidney disease, stage 3 unspecified; E10.22 Type 1 diabetes mellitus with diabetic chronic kidney disease; T42.76XA Underdosing of unspecified antiepileptic and sedative-hypnotic drugs, initial encounter; Z79.899 Other long term (current) drug therapy
CPT/HCPCS: 36415; 36600; 70450; 70496; 70498; 70551; 71045; 71275; 80048; 80053; 80061; 80177; 81001; 82550; 82803; 82947; 83605; 83690; 83735; 84100; 85014; 85018; 85025; 85027; 85610; 85730; 87040; 87086; 87088; 87186; 87493; 87502; 87507; 87635; 93970; 95816; 99204; 99285; C9113; J1644; J1953; J2185; J2270; J2359; J2405; J3360; J7120; Q9967

== ENCOUNTER → 2023-10-20 14:59 | Outpatient (BNV) | payer OTHER, SELFPAY | PROVIDERS: Admitting Provider Internal Medicine; Emergency Provider Student in an Organized Health Care Education/Training Program; PCP Internal Medicine Rheumatology; Visit Provider Physician Assistant | DX: G93.40 Encephalopathy, unspecified (principal) | CPT/HCPCS: 99223; 99232; 99233; 99239; 99499 ==

== ENCOUNTER → 2023-10-20 14:59 | Outpatient (BNV) | payer OTHER, SELFPAY | PROVIDERS: Admitting Provider Internal Medicine; Emergency Provider Student in an Organized Health Care Education/Training Program; PCP Internal Medicine Rheumatology; Visit Provider Psychiatry & Neurology Neurology | DX: G93.40 Encephalopathy, unspecified (principal) | CPT/HCPCS: 99222 ==